=== PATIENT | female | born 1995 | race Caucasian/White ===

== ENCOUNTER 2016-09-07 17:49 | Inpatient (IN) | payer OTHER ==
[~2016-09-07] VITALS: Ht 171.4 cm; Wt 42.7 kg
[2016-09-07] MEDS ORDERED: ETOMIDATE 40 MG/20 ML VIAL ONE (17:53)
[2016-09-07 17:57] VITALS: O2SAT 100
--- NOTE | 2016-09-07 18:08 | PD ---
HPI Chief Complaint: Trauma (Alert) Time Seen by Provider: 18:07 Travel History International Travel<30 days: No Contact w/Intl Traveler<30days: No Traveled to known affect area: No History of Present Illness HPI Patient probably about 19 years old was brought in as a trauma alert. I was in the room prior to patient's arrival since they gave the radio report. Patient had hung herself with a nylon rope from a bar on the ceiling and was found by her roommate. Unknown time of hanging. When fire department arrived patient was asystole. She was started on CPR and one round of meds were given as per ACLS protocol. There was return of spontaneous circulation soon after that. Patient was brought in getting breaths by [facility]. She had a blood pressure and pulse in the ambulance before arriving to the ER she started having some spontaneous respirations. She continued to be a GCS 3 when she arrived. She was tachycardic. As per the paramedics there was a pill bottle with Wellbutrin and some powdered substance found in the same location where she was found. [facility] Past Medical History Narrative Medical Unknown Allergies-Medications (Allergen,Severity, Reaction): Coded Allergies: No Known Allergies (Unverified , 09/07/16) Comments Unknown Narrative Medication Unknown Review of Systems Except as stated in HPI: all other systems reviewed are Neg Physical Exam Narrative GENERAL: Unresponsive, breaths by BVM SKIN: Focused skin assessment warm/dry. Deep in then did ligature daniel that's brown in color on the anterior aspect of her mid neck HEAD: Atraumatic. Normocephalic. EYES: Pupils equal and round and nonreactive to light. No scleral icterus. Conjunctival injection ENT: No nasal bleeding or discharge. Mucous membranes pink and moist. NECK: Trachea midline. No JVD. CARDIOVASCULAR: Regular rate and rhythm. No murmur appreciated. RESPIRATORY: Occasional spontaneous respirations. GASTROINTESTINAL: Abdomen soft, non-tender, nondistended. Hepatic and splenic margins not palpable. MUSCULOSKELETAL: No obvious deformities. No clubbing. No cyanosis. No edema. NEUROLOGICAL: GCS of 3 PSYCHIATRIC: Unable to assess Data Data Last Documented VS Vital Signs Date Time Temp Pulse Resp B/P Pulse Ox O2 Delivery O2 Flow Rate FiO2 09/07/16 17:57 100 15.00 100 Orders Etomidate Inj (Amidate Inj) (09/07/16 17:53) I-Stat Profile (09/07/16 18:00) I-Stat Creatinine (09/07/16 18:00) Complete Blood Count With Diff (09/07/16 18:00) Prothrombin Time / Inr (Pt) (09/07/16 18:00) Act Partial Throm Time (Ptt) (09/07/16 18:00) Type And Screen (09/07/16 18:00) Chest, Single Ap (09/07/16 18:00) Ct Brain W/O Iv Contrast(Rout) (09/07/16 18:00) Ct Cerv Spine W/O Contrast (09/07/16 18:00) Iv Access Insert/Monitor (09/07/16 18:00) Ecg Monitoring (09/07/16 18:00) Oximetry (09/07/16 18:00) Oxygen Administration (09/07/16 18:00) Propofol 1000 Mg/100 Ml Inj (Diprivan 10 (09/07/16 18:14) Admit Order (Ed Use Only) (09/07/16 18:17) Labs Laboratory Tests Test 09/07/16 17:55 White Blood Count 8.8 TH/MM3 Red Blood Count 4.94 MIL/MM3 Hemoglobin 14.2 GM/DL Bedside Hemoglobin 15.0 G/DL Hematocrit 42.6 % Bedside Hematocrit 44.0 % Mean Corpuscular Volume 86.3 FL Mean Corpuscular Hemoglobin 28.8 PG Mean Corpuscular Hemoglobin 33.4 % Concent Red Cell Distribution Width 14.5 % Platelet Count 242 TH/MM3 Mean Platelet Volume 8.0 FL Neutrophils (%) (Auto) 57.6 % Lymphocytes (%) (Auto) 32.2 % Monocytes (%) (Auto) 9.1 % Eosinophils (%) (Auto) 0.5 % Basophils (%) (Auto) 0.6 % Neutrophils # (Auto) 5.1 TH/MM3 Lymphocytes # (Auto) 2.8 TH/MM3 Monocytes # (Auto) 0.8 TH/MM3 Eosinophils # (Auto) 0.0 TH/MM3 Basophils # (Auto) 0.1 TH/MM3 CBC Comment DIFF FINAL Differential Comment Prothrombin Time 11.9 SEC Prothromb Time International 1.1 RATIO Ratio Activated Partial 23.1 SEC Thromboplast Time Bedside Sodium 140 MMOL/L Bedside Potassium 4.4 MMOL/L Bedside Chloride 106 MMOL/L Bedside Blood Urea Nitrogen 11 MG/DL Bedside Creatinine 1.4 MG/DL Bedside Glucose 262 MG/DL Blood Type B POSITIVE Antibody Screen NEGATIVE MDM Medical Screen Exam Complete: Yes Emergency Medical Condition: Yes Medical Record Reviewed: Yes EKG Prior to Arrival: Yes Differential Diagnosis Brain , hypoxic encephalopathy, cervical spine fracture, intracranial bleed , cerebral edema Narrative Course 6:14 PM trauma surgeon was present in the room and assessed the patient alongside with me. I decided to intubate the patient as soon as she arrived. Once this was done successfully chest x-ray was taken and I looked at the x-ray myself. The ET tube appeared to be in good position. Please refer to my procedure note. I rolled her off the backboard and checked the spine. There was no step-offs or contusions. She was taken to the CT scanner. She remained with a pulse and blood pressure similar as per arrival. Patient will be admitted to the ICU. Critical Care Narrative Aggregate critical care time was 30 minutes. Time to perform other separately billable procedures was not included in the critical care time. My time did not include minutes spent treating any other patients simultaneously or on activities that did not directly contribute to the patient's treatment. The services I provided to this patient were to treat and/or prevent clinically significant deterioration that could result in: Trauma alert I provided critical care services requiring my management, as noted below: Chart data review, documentation time, medication orders and management, vital sign assessments/reviewing monitor data, ordering and reviewing lab tests, ordering and interpreting/reviewing x-rays and diagnostic studies, care of the patient and discussion of the patient with the admitting physicians. Procedures Procedure Narrative After the risks and benefits were discussed the following procedure was performed: INTUBATION: The patient was put in optimal position for the procedure. Rapid sequence intubation was initiated by me using 20 milligrams of etomidate IV and 100 milligrams of succinylcholine IV. The patient was intubated with a 7.5 cuffed endotracheal tube. Tube placement was confirmed by visualization of the tube and balloon passing through the cords, capnometry and subsequent chest x-ray. Breath sounds were equal and well aerated bilaterally postintubation. No breath sounds over stomach. Patient tolerated procedure well. Trauma Alert - Level One Trauma Alert Level One: Full trauma team activate, Patient evaluated, Trauma surgeon summoned Time Surgeon Summoned: 17:[address] Ricardo Diagnosis Diagnosis: Primary Impression: Hanging Qualified Code: T71.164A - Hanging, initial encounter Additional Impressions: Cardiac arrest Hypoxic ischemic encephalopathy Respiratory failure Qualified Code: J96.01 - Acute respiratory failure with hypoxia Admitting Physician Requests: Admit Saadia Sagastume MD Sep 07, 2016 18:08
[2016-09-07] MEDS ORDERED: PROPOFOL 1000 MG/100 ML INJ 100 ML ONE ×2 (18:14→19:20)
--- NOTE | 2016-09-07 18:17 | RADRPT ---
EXAM DATE/TIME: 09/07/2016 17:49 This report includes an Addendum and supersedes previous reports for this exam. [facility] COMPARISON: No previous studies available for comparison. INDICATIONS : Trauma alert. Neck pain. MEDICAL HISTORY : None. SURGICAL HISTORY : None. ENCOUNTER: Initial ACUITY: 1 day PAIN SCORE: 0/10 LOCATION: Bilateral chest FINDINGS: A single view of the chest demonstrates subtle densities in the upper lobes. No effusion or pneumotho rax. Endotracheal tube 3.5 cm above the serafin. The cardiomediastinal contours are unremarkable. Oss eous structures are intact. CONCLUSION: Subtle densities in the upper lobes. Otherwise unremarkable chest. Artem Madera MD on September 07, 2016 at 18:15 Board Certified Radiologist. This report was verified electronically. ADDENDUM: See above. Artem Madera MD on September 07, 2016 at 18:23 Board Certified Radiologist. This report was verified electronically.
--- NOTE | 2016-09-07 18:18 | RADRPT ---
EXAM DATE/TIME: 09/07/2016 18:06 [facility] COMPARISON: No previous studies available for comparison. INDICATIONS : Trauma alert- possible hanging. RADIATION DOSE: 35.93 CTDIvol (mGy) MEDICAL HISTORY : Non-responsive. SURGICAL HISTORY : Non-responsive. ENCOUNTER: Initial ACUITY: 1 day PAIN SCALE: Non-responsive LOCATION: Bilateral cranial TECHNIQUE: Multiple contiguous axial images were obtained of the head. Using automated exposure control and adj ustment of the mA and/or kV according to patient size, radiation dose was kept as low as reasonably a chievable to obtain optimal diagnostic quality images. DICOM format image data is available electro nically for review and comparison. FINDINGS: CEREBRUM: The ventricles are normal for age. No evidence of midline shift, mass lesion, hemorrhage or acute in farction. No extra-axial fluid collections are seen. POSTERIOR FOSSA: The cerebellum and brainstem are intact. The 4th ventricle is midline. The cerebellopontine angle i s unremarkable. EXTRACRANIAL: The visualized portion of the orbits is intact. SKULL: The calvaria is intact. No evidence of skull fracture. CONCLUSION: Normal examination. Artem Madera MD on September 07, 2016 at 18:16 Board Certified Radiologist. This report was verified electronically.
[2016-09-07 18:25] VITALS: O2SAT 100
[2016-09-07 18:25] LABS: AUTOMATED NEUTROPHIL # 5.1 TH/MM3 (1.8-7.7); BASOPHIL # 0.1 TH/MM3 (0-0.2); BASOPHIL % 0.6 % (0.0-2.0); EOSINOPHIL % 0.5 % (0.0-4.0); HEMATOCRIT 42.6 % (35.0-46.0); HEMO FLAGS DIFF FINAL; I-STAT POTASSIUM 4.4 MMOL/L (3.5-4.9); LYMPH % 32.2 % (9.0-44.0); LYMPHOCYTE # 2.8 TH/MM3 (1.0-4.8); MEAN CELL VOLUME 86.3 FL (80.0-100.0); MEAN CORPUSCULAR HEMOGLOBIN 28.8 PG (27.0-34.0); MEAN CORPUSCULAR HGB CONC 33.4 % (32.0-36.0); MONO % 9.1 % (0.0-8.0); NEUT % 57.6 % (16.0-70.0); PLATELET COUNT 242 TH/MM3 (150-450); RED BLOOD COUNT 4.94 MIL/MM3 (4.00-5.30); RED CELL DISTRIBUTION WIDTH 14.5 % (11.6-17.2); WHITE BLOOD COUNT 8.8 TH/MM3 (4.0-11.0)
--- NOTE | 2016-09-07 18:29 | RADRPT ---
EXAM DATE/TIME: 09/07/2016 18:06 [facility] COMPARISON: No previous studies available for comparison. INDICATIONS : Trauma alert- possible hanging. RADIATION DOSE: 21.22 CTDIvol (mGy) MEDICAL HISTORY : Non-responsive. SURGICAL HISTORY : Non-responsive. ENCOUNTER: Initial ACUITY: 1 day PAIN SCALE: Non-responsive LOCATION: Bilateral neck region. TECHNIQUE: Volumetric scanning of the cervical spine was performed. Multiplanar reconstructions in the sagittal, coronal and oblique axial planes were performed. Using automated exposure control and adjustment o f the mA and/or kV according to patient size, radiation dose was kept as low as reasonably achievable to obtain optimal diagnostic quality images. DICOM format image data is available electronically f or review and comparison. FINDINGS: VERTEBRAE: Normal vertebral body height. ALIGNMENT: No evidence of subluxation. C2-C3: The bony spinal canal is normal in size. No evidence of disc bulge or herniation. The neural forami na are bilaterally patent. C3-C4: The bony spinal canal is normal in size. No evidence of disc bulge or herniation. The neural forami na are bilaterally patent. C4-C5: The bony spinal canal is normal in size. No evidence of disc bulge or herniation. The neural forami na are bilaterally patent. C5-C6: The bony spinal canal is normal in size. No evidence of disc bulge or herniation. The neural forami na are bilaterally patent. C6-C7: The bony spinal canal is normal in size. No evidence of disc bulge or herniation. The neural forami na are bilaterally patent. C7-T1: The bony spinal canal is normal in size. No evidence of disc bulge or herniation. The neural forami na are bilaterally patent. CONCLUSION: 1. No fracture or subluxation. 2. Scattered groundglass nodules throughout the upper lobes, nonspecific but can be seen with hyperse nsitivity pneumonitis. Artem Madera MD on September 07, 2016 at 18:26 Board Certified Radiologist. This report was verified electronically.
[2016-09-07 18:35] LABS: APTT (PATIENT) 23.1 SEC (24.3-30.1); INTERNATIONAL NORMALIZED RATIO 1.1 RATIO; PROTHROMBIN TIME - PATIENT 11.9 SEC (9.8-11.6)
[2016-09-07] MEDS ORDERED: SUCCINYLCHOLINE CHLORIDE 200 MG/10 ML VIAL ONE (18:38)
[2016-09-07] MEDS ORDERED: ENALAPRILAT 1.25 MG/ML VIAL IV PRN (18:45)
[2016-09-07] MEDS ORDERED: SODIUM CHLORIDE 0.9% FLUSH 10 ML FLUSH IV FLUSH PRN ×2 (18:45→22:00)
[2016-09-07] MEDS ORDERED: CHLORHEXIDINE GLUCONATE 2 % 1 PACK (2 CLOTHS) TOP PRN (18:45)
[2016-09-07] MEDS ORDERED: ONDANSETRON HCL 4 MG/2 ML VIAL IV PRN (18:45)
[2016-09-07] MEDS ORDERED: MAGNESIUM HYDROXIDE SUSP 30 ML CUP PO PRN (18:45)
[2016-09-07] MEDS ORDERED: MISCELLANEOUS NURSING INFORMATION XX SCH (18:45)
--- NOTE | 2016-09-07 19:27 | MH ---
cc: SON[facility] STOCK DATE OF ADMISSION 09/07/2016 HISTORY OF THE PRESENT ILLNESS This is an 44-rai-latl-old female who was brought in as a trauma alert after hanging from a pull up bar. By reports the patient was asystole at the scene. CPR was started. The patient was given a round of epinephrine and regained a blood pressure. She was brought on a backboard, immobilized with a C-collar in place. She is being bagged. The patient was unresponsive with a GCS of 3. As a result she was intubated by the emergency room physician and all reviews of systems and history is unobtainable. PHYSICAL EXAMINATION HEENT: The patient's examination reveals pupils that are equal, nonreactive, 3 mm. NECK: In C-collar with a circumferential imprinting around it. No crepitus. No tracheal deviation. No JVD. LUNGS: Respirations clear. CARDIOVASCULAR: Regular. GASTROINTESTINAL: Soft, flat, nondistended. MUSCULOSKELETAL: No deformities. NEUROLOGIC: GCS of 3T. BACK: No step-offs. LABORATORY DATA The patient's hemoglobin is 15, hematocrit 44. IMAGING Radiologic images CT of the head negative. CT of the C-spine no fracture. Chest x-ray no acute disease. ASSESSMENT This is a patient who was found hanging with likely anoxic brain injury. The patient is being admitted to [facility]. The die designer apprentice has been consulted and will monitor neurological status. MD ALIZA Velazquez/LINO /7:02 PM /7:16 PM
[2016-09-07] MEDS ORDERED: SODIUM CHLOR 0.9% 1000 ML INJ 1,000 ML IV SCH (19:30)
[2016-09-07 19:35] VITALS: O2SAT 96
[2016-09-07 20:00] VITALS: BP 124/76; PULSE 98; RESP 28; TEMP 100.7; O2SAT 100
[2016-09-07 20:00] LABS: BLOOD GAS BASE EXCESS -9.4 mmol/L (-2-2); BLOOD GAS CARBOXYHEMOGLOBIN 0.8 % (0-4); BLOOD GAS HCO3 16 mmol/L (22-26); BLOOD GAS METHEMOGLOBIN 0.8 % (0-2); BLOOD GAS O2 HGB SATURATION 98 % (90-100); BLOOD GAS OXYGEN CONTENT 24.5 Vol % (12.0-20.0); BLOOD GAS PCO2 35 mmHg (38-42); BLOOD GAS PO2 384 mmHg (61-120); BLOOD GAS TOTAL HGB 17.1 G/DL (12.0-16.0); OXYGEN DEVICE VENTILATOR; TEMP CORR TO 98.6
[2016-09-07 20:01] LABS: CRITICAL VALUE YES; DRAW SITE RT RADIAL; FIO2 100 %; NUMBER OF ARTERIAL PUNCTURES 1; STAT NO; ULNAR PULSE PRESENT; VENT SETTINGS AC14/450/5PEEP
[2016-09-07] MEDS: DOCUSATE SODIUM 100 MG CAP PO SCH (21:00)
[2016-09-07 21:12] VITALS: O2SAT 100
[2016-09-07] MEDS ORDERED: NOREPINEPHRINE 4 MG/250 ML NS IV SCH ×2 (21:30)
[2016-09-07] MEDS ORDERED: MIDAZOLAM 100 MG/NS 100 ML DRIP Premix IV SCH (21:30)
[2016-09-07] MEDS ORDERED: CISATRACURIUM 100 MG/NS 250 ML IV PRN ×2 (21:30)
[2016-09-07 21:49] LABS: BLOOD, URINE LARGE (NEG); GLUCOSE,URINE 150 mg/dL (NEG); KETONE, URINE NEG (NEG); MUCUS URINE FEW /lpf (OCC); NITRITE,URINE NEG (NEG); SQUAMOUS EPITHELIAL CELL URINE 4 /hpf (0-5); URINE COLOR RED (YELLW/STRAW)
[2016-09-07 22:00] VITALS: PULSE 101
[2016-09-07] MEDS ORDERED: Mix all IV Meds in NS IV SCH (22:00)
[2016-09-07] MEDS ORDERED: MIDAZOLAM 100 MG/100 ML INJ 100 ML IV SCH (22:00)
[2016-09-07] MEDS: NS 1000 ML IV SCH (22:00)
[2016-09-07 22:06] LABS: MAGNESIUM 2.3 MG/DL (1.5-2.5)
[2016-09-07 22:07] LABS: INDIRECT BILIRUBIN 0.5 MG/DL (0.0-0.8); TOTAL BILIRUBIN ADULT 0.7 MG/DL (0.2-1.0)
--- NOTE | 2016-09-07 22:49 | PD.CONS ---
[facility] Service Critical Care Medicine Consult Requested By Primary Care Physician No Primary Care Physician History of Present Illness 19 years old was brought in as a trauma alert. He has had to hanged herself and was found by her roommate. Unknown time of hanging. When fire department arrived patient was in asystole. CPR was started and one round of meds were given as per ACLS protocol. There was return of spontaneous circulation soon after that. Patient was brought in getting breaths by BVM. She had a blood pressure and half way to arriving to the ER she started having some spontaneous respirations. She continued to be a GCS 3 when she arrived. She is admitted to critical care unit and therapeutic hypothermia protocol is initiated. Review of Systems ROS Unobtainable patient is comatose Past Family Social History Allergies: Coded Allergies: UNOBTAINABLE (Unverified , 09/07/16) Past Medical History Unobtainable Past Surgical History Unobtainable Reported Medications Unobtainable Active Ordered Medications Current Medications Medications (Trade) Dose Ordered Sig/Jenaro Route PRN Reason Start Time Stop Time Status Last Admin Dose Admin Sodium Chloride (NS 1000 ml Inj) 1,000 ml @ 100 mls/hr Q10H IV 09/07/16 19:30 09/07/16 19:30 Sodium Chloride (NS Flush) 2 ml UNSCH PRN IV FLUSH FLUSH AFTER USING IV ACCESS 09/07/16 18:45 Enalaprilat (Vasotec Inj) 1.25 mg Q8H PRN IV SBP>180, DBP>95 09/07/16 18:45 Ondansetron HCl (Zofran Inj) 4 mg Q6H PRN IV NAUSEA OR VOMITING 09/07/16 18:45 Pantoprazole Sodium (Protonix Inj) 40 mg Q24H IVP 09/07/16 20:00 Docusate Sodium (Colace) 100 mg BID PO 09/07/16 21:00 Magnesium Hydroxide (Milk Of Magnesia Liq) 30 ml Q6H PRN PO CONSTIPATION 09/07/16 18:45 Miscellaneous Information 1 Q361D XX 09/07/16 18:45 Chlorhexidine Gluconate (Chlorhexidine 2% Cloth) 3 pack Taper DAILY@04 TOP 09/08/16 04:00 09/04/17 03:59 Chlorhexidine Gluconate 3 pack 3 pack UNSCH PRN TOP HYGIENIC CARE 09/07/16 18:45 Midazolam HCl (Versed 100 Mg/ ml Inj) 100 ml @ 0 mls/hr TITRATE IV 09/07/16 21:30 09/07/16 21:33 Lorazepam 1 mg 1 mg Q1H PRN IV SEIZURES 09/07/16 22:00 Miscellaneous Information ml @ 0 mls/hr UNSCH IV 09/07/16 22:00 Sodium Chloride (NS Flush) 2 ml UNSCH PRN IV FLUSH FLUSH AFTER USING IV ACCESS 09/07/16 22:00 Sodium Chloride 2 ml 2 ml UNSCH PRN IV FLUSH IV FLUSH 09/07/16 22:00 Sodium Chloride (NS 1000 ml Inj) 1,000 ml @ 2,000 mls/hr Q30M IV 09/07/16 22:00 09/07/16 22:59 Artificial Tears 1 applic 1 applic Q4H PRN EACH EYE SEE LABEL COMMENTS 09/07/16 22:00 Cisatracurium Besylate 100 mg/ Sodium Chloride 250 ml @ 0 mls/hr TITRATE PRN IV ONLY IF SHIVERING 09/07/16 21:30 Norepinephrine Bitartrate/Sodium Chloride (Levophed Inj/NS 250 ml Inj) 250 ml @ 0 mls/hr TITRATE IV 09/07/16 21:30 Family History Unobtainable Social History Unobtainable Physical Exam Vital Signs Vital Signs Date Time Temp Pulse Resp B/P Pulse Ox O2 Delivery O2 Flow Rate FiO2 09/07/16 21:12 100 80 09/07/16 19:35 96 100 09/07/16 18:25 100 100 09/07/16 17:57 100 15.00 100 Physical Exam GENERAL: Well-nourished, well-developed patient. In deep coma SKIN: Warm and dry. HEAD: Normocephalic. Pupils are 4 mm bilaterally fixed and dilated EYES: No scleral icterus. No injection or drainage. NECK: Supple, trachea midline. No JVD or lymphadenopathy. CARDIOVASCULAR: Regular rate and rhythm without murmurs, gallops, or rubs. RESPIRATORY: Breath sounds equal bilaterally. No accessory muscle use. GASTROINTESTINAL: Abdomen soft, non-tender, nondistended. MUSCULOSKELETAL: No cyanosis, or edema. BACK: Nontender without obvious deformity. No CVA tenderness. EXTREMITIES: No movement Laboratory Laboratory Tests Test 09/07/16 09/07/16 09/07/16 09/07/16 17:55 19:30 19:34 21:24 White Blood Count 8.8 Red Blood Count 4.94 Hemoglobin 14.2 Bedside Hemoglobin 15.0 Hematocrit 42.6 Bedside Hematocrit 44.0 Mean Corpuscular Volume 86.3 Mean Corpuscular Hemoglobin 28.8 Mean Corpuscular Hemoglobin 33.4 Concent Red Cell Distribution Width 14.5 Platelet Count 242 Mean Platelet Volume 8.0 Neutrophils (%) (Auto) 57.6 Lymphocytes (%) (Auto) 32.2 Monocytes (%) (Auto) 9.1 Eosinophils (%) (Auto) 0.5 Basophils (%) (Auto) 0.6 Neutrophils # (Auto) 5.1 Lymphocytes # (Auto) 2.8 Monocytes # (Auto) 0.8 Eosinophils # (Auto) 0.0 Basophils # (Auto) 0.1 CBC Comment DIFF FINAL Differential Comment Prothrombin Time 11.9 Prothromb Time International 1.1 Ratio Activated Partial 23.1 Thromboplast Time Bedside Sodium 140 Bedside Potassium 4.4 Bedside Chloride 106 Bedside Blood Urea Nitrogen 11 Bedside Creatinine 1.4 Bedside Glucose 262 Blood Type B POSITIVE Antibody Screen NEGATIVE Nasal Screen MRSA (PCR) MRSA NOT DETECTED Blood Gas Puncture Site RT RADIAL Blood Gas Patient Temperature 98.6 Blood Gas HCO3 16 Blood Gas Base Excess -9.4 Blood Gas Oxygen Saturation 98 Arterial Blood pH 7.29 Arterial Blood Partial 35 Pressure CO2 Arterial Blood Partial 384 Pressure O2 Arterial Blood Oxygen Content 24.5 Arterial Blood 0.8 Carboxyhemoglobin Arterial Blood Methemoglobin 0.8 Blood Gas Hemoglobin 17.1 Oxygen Delivery Device VENTILATOR Blood Gas Ventilator Setting AC14/450/5PEEP Blood Gas Inspired Oxygen 100 Urine Color RED Urine Turbidity CLOUDY Urine pH 6.0 Urine Specific [place] 1.024 Urine Protein 300 Urine Glucose (UA) 150 Urine Ketones NEG Urine Occult Blood LARGE Urine Nitrite NEG Urine Bilirubin NEG Urine Urobilinogen LESS THAN 2.0 Urine Leukocyte Esterase NEG Urine RBC Urine WBC 26 Urine Squamous Epithelial 4 Cells Urine Amorphous Sediment RARE Urine Mucus FEW Microscopic Urinalysis Comment Lactic Acid Level 3.6 Phosphorus Level 4.4 Magnesium Level 2.3 Total Bilirubin 0.7 Direct Bilirubin 0.2 Indirect Bilirubin 0.5 Aspartate Amino Transf 67 (AST/SGOT) Alanine Aminotransferase 33 (ALT/SGPT) Alkaline Phosphatase 53 Total Protein 7.8 Albumin 4.0 Urine Opiates Screen NEG Urine Barbiturates Screen NEG Urine Amphetamines Screen NEG Urine Benzodiazepines Screen NEG Urine Cocaine Screen NEG Urine Cannabinoids Screen NEG Result Diagram: 09/07/16 1755 Imaging Last [address] 09/07/16 1800 Signed Impressions: Service Date/Time: Wednesday, September 07, 2016 18:06 - CONCLUSION: Normal examination. Artem Madera MD Chest X-Ray 09/07/16 1800 Signed Impressions: Service Date/Time: Wednesday, September 07, 2016 17:49 - CONCLUSION: Subtle densities in the upper lobes. Otherwise unremarkable chest. Artem Madera MD ADDENDUM: See above. Artem Madera MD Cervical Spine CT 09/07/16 1800 Signed Impressions: Service Date/Time: Wednesday, September 07, 2016 18:06 - CONCLUSION: 1. No fracture or subluxation. 2. Scattered groundglass nodules throughout the upper lobes, nonspecific but can be seen with hypersensitivity pneumonitis. Artem Madera MD Assessment and Plan Assessment and Plan Status postcardiac arrest - Due to hanging suicidal attempt - Possible anoxic brain injury - Therapeutic hypothermia protocol due to low GCS Respiratory failure - Intubated for an airway protection - No weaning until neurologically improved Altered mental status - Most likely anoxic brain injury - Hypothermia protocol - Neurology evaluation if no improvement with the next 24 hours when rewarmed DVT GI prophylaxis - Subcutaneous heparin and Pepcid Critical Care: The total critical care time was 35 minutes. Time to perform other separately billable procedures was not included in the critical care time. Prosper England MD Sep 07, 2016 22:49
--- NOTE | 2016-09-07 22:52 | PD.PROCEDR ---
Procedure Note Procedure Centerline placement A time-out was completed verifying correct patient, procedure, site, positioning , and special equipment if applicable. The patient was placed in a dependent position appropriate for central line placement based on the vein to be cannulated. The patients right groin was prepped and draped in sterile fashion. 1% Lidocaine was used to anesthetize the surrounding skin area. A triple lumen 9-[place] Cordis catheter was introduced into the the common femoral vein using the Seldinger technique and under ultrasound guidance. The catheter was threaded smoothly over the guide wire and appropriate blood return was obtained. Each lumen of the catheter was evacuated of air and flushed with sterile saline. The catheter was then sutured in place to the skin and a sterile dressing applied. Perfusion to the extremity distal to the point of catheter insertion was checked and found to be adequate. Estimated Blood Loss: 1ml The patient tolerated the procedure well and there were no complications. Prosper England MD Sep 07, 2016 22:52
[2016-09-07] MEDS ORDERED: SODIUM CHLOR 0.9% 1000 ML INJ 2,000 ML IV SCH (23:00)
[2016-09-07 23:27] LABS: BICARBONATE 20.1 MEQ/L (21.0-32.0); MAGNESIUM 2.3 MG/DL (1.5-2.5); POTASSIUM 3.1 MEQ/L (3.5-5.1)
[2016-09-08] VITALS (21 sets, daily range): BP systolic 99–127; BP diastolic 54–80; PULSE 74–119; RESP 15–30; TEMP 91.2–91.5; O2SAT 88–100
[2016-09-08] MEDS: NS 1000 ML IV SCH (00:23)
[2016-09-08] MEDS ORDERED: POTASSIUM PHOSPHATE MONOBASIC 500 MG TAB PO PRN (00:30)
[2016-09-08] MEDS ORDERED: POTASSIUM CHLORIDE 25 MEQ EFFERVESCENT TAB PO PRN (00:30)
[2016-09-08] MEDS ORDERED: POTASSIUM PHOSPHATE INJ 30 MMOL in SODIUM CHLOR 0.9% 250 ML INJ 250 ML IV PRN (00:30)
[2016-09-08] MEDS ORDERED: POTASSIUM PHOSPHATE MONOBASIC 500 MG TAB PO/TUBE PRN (00:30)
[2016-09-08] MEDS ORDERED: MAGNESIUM SULFATE INJ 4 GM in SODIUM CHLORIDE 0.9% INJ 92 ML IV PRN (00:30)
[2016-09-08] MEDS ORDERED: MAGNESIUM OXIDE 400 MG TAB PO PRN (00:30)
[2016-09-08] MEDS ORDERED: SODIUM PHOSPHATE INJ 30 MMOL in SODIUM CHLOR 0.9% 250 ML INJ 240 ML IV PRN (00:30)
[2016-09-08] MEDS: POTASSIUM CHLOR 40 MEQ PREMIX 100 ML IV PRN ×2 (00:59→03:05)
[2016-09-08] MEDS ORDERED: PROPOFOL 1000 MG/100 ML INJ 100 ML ONE (01:36)
[2016-09-08] MEDS: PANTOPRAZOLE SODIUM 40 MG VIAL IVP SCH ×2 (01:42→20:18)
[2016-09-08] MEDS: CHLORHEXIDINE GLUCONATE 2 % 1 PACK (2 CLOTHS) TOP SCH (02:20)
[2016-09-08] MEDS ORDERED: VECURONIUM BROMIDE 10 MG VIAL ONE (02:33)
[2016-09-08] MEDS ORDERED: VECURONIUM BROMIDE 10 MG VIAL IV SCH (02:35)
[2016-09-08] MEDS ORDERED: SODIUM CHLOR 0.9% 1000 ML INJ 1,000 ML IV SCH (02:45)
[2016-09-08] MEDS ORDERED: SODIUM BICARBONATE 8.4% INJ 150 MEQ in DEXTROSE 5% IN WATE 1000ML INJ 1,000 ML IV SCH ×2 (04:00)
[2016-09-08] MEDS ORDERED: fentaNYL DRIP 250 ML IV SCH (05:00)
[2016-09-08 05:17] LABS: AUTOMATED NEUTROPHIL # 1.3 TH/MM3 (1.8-7.7); BASOPHIL % 0.2 % (0.0-2.0); EOSINOPHIL % 0.9 % (0.0-4.0); HEMATOCRIT 43.1 % (35.0-46.0); HEMO FLAGS DIFF FINAL; LYMPHOCYTE # 0.7 TH/MM3 (1.0-4.8); MEAN CELL VOLUME 85.9 FL (80.0-100.0); MEAN CORPUSCULAR HEMOGLOBIN 28.3 PG (27.0-34.0); MEAN CORPUSCULAR HGB CONC 32.9 % (32.0-36.0); MONO % 5.5 % (0.0-8.0); NEUT % 60.4 % (16.0-70.0); PLATELET COUNT 175 TH/MM3 (150-450); RED BLOOD COUNT 5.02 MIL/MM3 (4.00-5.30); RED CELL DISTRIBUTION WIDTH 14.6 % (11.6-17.2); WHITE BLOOD COUNT 2.2 TH/MM3 (4.0-11.0)
[2016-09-08 05:22] LABS: BICARBONATE 20.9 MEQ/L (21.0-32.0); CALCIUM-PROTEIN CORRECTED 8.2 MG/DL (8.5-10.1); MAGNESIUM 1.8 MG/DL (1.5-2.5); POTASSIUM 4.8 MEQ/L (3.5-5.1); TOTAL BILIRUBIN ADULT 0.3 MG/DL (0.2-1.0)
[2016-09-08 05:22] LABS: BLOOD GAS BASE EXCESS -9.4 mmol/L (-2-2); BLOOD GAS CARBOXYHEMOGLOBIN 0.3 % (0-4); BLOOD GAS HCO3 19 mmol/L (22-26); BLOOD GAS METHEMOGLOBIN 0.7 % (0-2); BLOOD GAS O2 HGB SATURATION 87 % (90-100); BLOOD GAS OXYGEN CONTENT 17.7 Vol % (12.0-20.0); BLOOD GAS PCO2 60 mmHg (38-42); BLOOD GAS PO2 66 mmHg (61-120); BLOOD GAS TOTAL HGB 14.4 G/DL (12.0-16.0); CRITICAL VALUE YES; OXYGEN DEVICE VENTILATOR; TEMP CORR TO 98.6; VENT SETTINGS AC14/450/5PEEP
[2016-09-08 05:23] LABS: DRAW SITE RT RADIAL; FIO2 65 %; NUMBER OF ARTERIAL PUNCTURES 1; STAT NO; ULNAR PULSE PRESENT
--- NOTE | 2016-09-08 06:13 | RADRPT ---
EXAM DATE/TIME: 09/08/2016 05:29 [facility] COMPARISON: CHEST SINGLE AP, September 07, 2016, 17:49. INDICATIONS : Short of breath. MEDICAL HISTORY : None. SURGICAL HISTORY : None. ENCOUNTER: Subsequent ACUITY: 2 days PAIN SCORE: 0/10 LOCATION: Bilateral chest FINDINGS: Portable AP view the chest demonstrates a normal-sized cardiac silhouette. ETT and nasogastric tube a re present. There is airspace consolidation in the right lower lung zone and left upper lung zone. No pneumothorax or pleural effusion is identified. CONCLUSION: There is new airspace consolidation in the left upper lobe and right lower lung zone. Miller Lee MD on September 08, 2016 at 6:12 Board Certified Radiologist. This report was verified electronically.
[2016-09-08] MEDS ORDERED: PHENYLEPHRINE HCL 10 MG/ML VIAL ONE ×2 (07:00→07:06)
[2016-09-08] MEDS ORDERED: SODIUM CHLOR 0.9% 1000 ML INJ 1,000 ML IV ONE ×4 (07:30→18:00)
[2016-09-08] MEDS ORDERED: PHENYLEPHRINE INJ 160 MG in DEXTROSE 5% IN WATE 500 ML INJ 484 ML IV SCH ×2 (07:30)
[2016-09-08] MEDS ORDERED: TERBUTALINE INJ 1 MG/ML AMP SQ PRN ×2 (07:30→13:00)
[2016-09-08 07:39] LABS: BLOOD GAS BASE EXCESS -7.2 mmol/L (-2-2); BLOOD GAS CARBOXYHEMOGLOBIN 0.3 % (0-4); BLOOD GAS HCO3 20 mmol/L (22-26); BLOOD GAS METHEMOGLOBIN 0.7 % (0-2); BLOOD GAS O2 HGB SATURATION 99 % (90-100); BLOOD GAS OXYGEN CONTENT 19.6 Vol % (12.0-20.0); BLOOD GAS PCO2 55 mmHg (38-42); BLOOD GAS PO2 387 mmHg (61-120); BLOOD GAS TOTAL HGB 13.4 G/DL (12.0-16.0); CRITICAL VALUE YES; DRAW SITE ART LINE; FIO2 100 %; NUMBER OF ARTERIAL PUNCTURES 0; OXYGEN DEVICE VENTILATOR; STAT NO; TEMP CORR TO 98.6; ULNAR PULSE PRESENT; VENT SETTINGS PC/AC
[2016-09-08 07:47] LABS: BLOOD GAS VENOUS BASE EXCESS -6.2 mmol/L (-2-2); BLOOD GAS VENOUS HCO3 23 mmol/L (22-26); BLOOD GAS VENOUS O2 HGB SAT 62 % (70-76); BLOOD GAS VENOUS PCO2 79 mmHg (44-48); BLOOD GAS VENOUS PO2 38 mmHg (35-40); BLOOD GAS VENOUS pH 7.09 (7.360-7.400); CRITICAL VALUE YES; OXYGEN DEVICE VENTILATOR; TEMP CORR TO 98.6
[2016-09-08 07:48] LABS: DRAW SITE CENTRAL LINE; FIO2 100 %; STAT NO; VENT SETTINGS PC/AC
[2016-09-08] MEDS ORDERED: ALBUMIN HUMAN 25% 25 GM/100 ML BAGP IV ONE (08:00)
[2016-09-08] MEDS: PIPERACIL-TAZO 4.5 GM PREMIX 100 ML IV SCH ×3 (08:00→20:18)
--- NOTE | 2016-09-08 08:13 | HHI.CCPN ---
Subjective Remarks/Hospital Course 19 years old was brought in as a trauma alert. He has had to hanged herself and was found by her roommate. Unknown time of hanging. When fire department arrived patient was in asystole. CPR was started and one round of meds were given as per ACLS protocol. There was return of spontaneous circulation soon after that. Patient was brought in getting breaths by BV. She had a blood pressure and half way to arriving to the ER she started having some spontaneous respirations. She continued to be a GCS 3 when she arrived. She is admitted to critical care unit and therapeutic hypothermia protocol is initiated. SUBJ 09/08/16: Patient achieving target temperature but developing severe shock. Levothroid had been increased to 30 mcg/m Mehdi-Synephrine added. Additional fluid boluses ordered currently on bicarbonate infusion additional one amp of bicarbonate given. Chest x-ray shows severe aspiration pneumonitis predominantly right lower lobe infiltrates. Zosyn 4.5 GM IV q8 started, give single dose of vanc Objective Vital Signs Date Time Temp Pulse Resp B/P Pulse Ox O2 Delivery O2 Flow Rate FiO2 09/08/16 06:20 100 100 09/08/16 04:00 91.4 109 15 116/67 09/07/16 17:57 15.00 Intake and Output 09/07/16 09/07/16 09/08/16 08:00 16:00 00:00 Intake Total 1405 ml Output Total 70 ml Balance 1335 ml Result Diagram: 09/08/16 0445 09/08/16 0445 Other Results Laboratory Tests Test 09/07/16 09/08/16 19:34 05:04 Blood Gas Puncture Site RT RADIAL RT RADIAL Blood Gas Patient Temperature 98.6 98.6 Blood Gas HCO3 16 mmol/L 19 mmol/L (22-26) (22-26) Blood Gas Base Excess -9.4 mmol/L -9.4 mmol/L (-2-2) (-2-2) Blood Gas Oxygen Saturation 98 % (90-100) 87 % (90-100) Arterial Blood pH 7.29 7.12 (7.380-7.420) (7.380-7.420) Arterial Blood Partial 35 mmHg (38-42) 60 mmHg (38-42) Pressure CO2 Arterial Blood Partial 384 mmHg 66 mmHg Pressure O2 (61-120) (61-120) Arterial Blood Oxygen Content 24.5 Vol % 17.7 Vol % (12.0-20.0) (12.0-20.0) Arterial Blood 0.8 % (0-4) 0.3 % (0-4) Carboxyhemoglobin Arterial Blood Methemoglobin 0.8 % (0-2) 0.7 % (0-2) Blood Gas Hemoglobin 17.1 G/DL 14.4 G/DL (12.0-16.0) (12.0-16.0) Oxygen Delivery Device VENTILATOR VENTILATOR Blood Gas Ventilator Setting AC14/450/5PEEP AC14/450/5PEEP Blood Gas Inspired Oxygen 100 % 65 % Imaging Last [address] 09/07/16 1800 Signed Impressions: Service Date/Time: Wednesday, September 07, 2016 18:06 - CONCLUSION: Normal examination. Artem Madera MD Chest X-Ray 09/07/16 1800 Signed Impressions: Service Date/Time: Wednesday, September 07, 2016 17:49 - CONCLUSION: Subtle densities in the upper lobes. Otherwise unremarkable chest. Artem Madera MD ADDENDUM: See above. Artem Madera MD Cervical Spine CT 09/07/16 1800 Signed Impressions: Service Date/Time: Wednesday, September 07, 2016 18:06 - CONCLUSION: 1. No fracture or subluxation. 2. Scattered groundglass nodules throughout the upper lobes, nonspecific but can be seen with hypersensitivity pneumonitis. Artem Madera MD Objective Remarks GENERAL: Well-nourished, well-developed patient. Comatose now on heavy sedation for cooling SKIN: Warm and dry. HEAD: Normocephalic. Pupils are 2 mm bilaterally fixed EYES: No scleral icterus. No injection or drainage. NECK: Supple, trachea midline. No JVD or lymphadenopathy. CARDIOVASCULAR: Tachycardic rhythm. No murmurs RESPIRATORY: Breath sounds equal bilaterally. Basilar rhonchi and crackles GASTROINTESTINAL: Abdomen soft, non-tender, nondistended. MUSCULOSKELETAL: No cyanosis, or edema. BACK: Nontender without obvious deformity. No CVA tenderness. EXTREMITIES: No movement NEURO: Intubated sedated. Pupils are 2 mm nonreactive. No corneal reflex. No withdrawal to deep pain. GCS 3T A/P Assessment and Plan NEURO: Severe anoxic brain injury Attempted suicide by hanging - Initiated on induced hypothermia for neuro protection, currently at target temperature - From initial clinical exam prognosis appears poor - EEG, MRI after completion of induced hypothermia - Toxicology negative CV: Severe shock (neurogenic cardiogenic and septic Status postcardiac arrest - Continue aggressive fluid resuscitation - Levothroid on maximum dose, start Mehdi-Synephrine - Flow track monitoring - Check central venous gas, lactic acid, check bedside echo Resp: Acute hypoxemic respiratory failure Aspiration pneumonia Acute lung injury/ARDS - Intubated for an airway protection, now with severe hypoxemic respiratory failure - Combined metabolic and respiratory acidosis - PCV ventilation with Insp pr 28, PEEP 7 RR 24, check repeat ABG - No weaning until neurologically improved GI: - Nothing by mouth, Pepcid Renal: - IV fluid as above, Benjamin catheter, monitor BUN/creatinine ID: Septic shock Aspiration pneumonia - Check blood urine and sputum cultures - Zosyn 4.5 g IV every 6 hours, vancomycin 1 g IV 1 Endo: - Electrolyte replacement per protocol - Sliding-scale insulin HEME: Leukopenia - Leukopenia most likely from developing sepsis - Monitor CBC CMP coags DVT GI prophylaxis - Subcutaneous heparin and Pepcid Lines: - Right femoral cooling catheter and right brachial arterial line placed by Dr. England Critical Care: The total critical care time was 85 minutes discontinuously. Time to perform other separately billable procedures was not included in the critical care time. Lyndon Bhatt MD Sep 08, 2016 08:13
[2016-09-08] MEDS ORDERED: VANCOMYCIN INJ 1,000 MG in SODIUM CHLOR 0.9% 250 ML INJ 250 ML IV ONE (08:30)
[2016-09-08 08:49] LABS: BLOOD GAS BASE EXCESS -9.1 mmol/L (-2-2); BLOOD GAS CARBOXYHEMOGLOBIN 0.6 % (0-4); BLOOD GAS HCO3 18 mmol/L (22-26); BLOOD GAS METHEMOGLOBIN 0.7 % (0-2); BLOOD GAS O2 HGB SATURATION 92 % (90-100); BLOOD GAS OXYGEN CONTENT 16.3 Vol % (12.0-20.0); BLOOD GAS PCO2 49 mmHg (38-42); BLOOD GAS PO2 71 mmHg (61-120); BLOOD GAS TOTAL HGB 12.6 G/DL (12.0-16.0); CRITICAL VALUE YES; OXYGEN DEVICE VENTILATOR; TEMP CORR TO 98.6
[2016-09-08] MEDS ORDERED: SODIUM BICARBONATE 8.4% INJ 50 ML ONE (08:49)
[2016-09-08 08:50] LABS: DRAW SITE ART LINE; FIO2 75 %; STAT NO
[2016-09-08] MEDS: DOCUSATE SODIUM 100 MG CAP PO SCH ×2 (09:00→20:14)
[2016-09-08 09:58] LABS: BLOOD GAS BASE EXCESS -5.2 mmol/L (-2-2); BLOOD GAS CARBOXYHEMOGLOBIN 0.7 % (0-4); BLOOD GAS HCO3 20 mmol/L (22-26); BLOOD GAS METHEMOGLOBIN 0.8 % (0-2); BLOOD GAS O2 HGB SATURATION 95 % (90-100); BLOOD GAS OXYGEN CONTENT 16.4 Vol % (12.0-20.0); BLOOD GAS PCO2 45 mmHg (38-42); BLOOD GAS PO2 81 mmHg (61-120); BLOOD GAS TOTAL HGB 12.3 G/DL (12.0-16.0); CRITICAL VALUE YES; OXYGEN DEVICE VENTILATOR; TEMP CORR TO 98.6
[2016-09-08 09:59] LABS: DRAW SITE ART LINE; FIO2 80 %; NUMBER OF ARTERIAL PUNCTURES 0; STAT NO; ULNAR PULSE PRESENT; VENT SETTINGS AC/PC
[2016-09-08 10:16] LABS: AUTOMATED NEUTROPHIL # 1.4 TH/MM3 (1.8-7.7); BASOPHIL % 0.3 % (0.0-2.0); EOSINOPHIL % 0.4 % (0.0-4.0); HEMATOCRIT 37.7 % (35.0-46.0); HEMO FLAGS DIFF FINAL; LYMPH % 34.3 % (9.0-44.0); LYMPHOCYTE # 0.8 TH/MM3 (1.0-4.8); MEAN CELL VOLUME 84.5 FL (80.0-100.0); MEAN CORPUSCULAR HEMOGLOBIN 28.3 PG (27.0-34.0); MEAN CORPUSCULAR HGB CONC 33.5 % (32.0-36.0); MONO % 2.5 % (0.0-8.0); NEUT % 62.5 % (16.0-70.0); PLATELET COUNT 125 TH/MM3 (150-450); RED BLOOD COUNT 4.46 MIL/MM3 (4.00-5.30); RED CELL DISTRIBUTION WIDTH 14.3 % (11.6-17.2); WHITE BLOOD COUNT 2.2 TH/MM3 (4.0-11.0)
[2016-09-08] MEDS ORDERED: SODIUM BICARBONATE 8.4% SOLN 50 MEQ/50 ML VIAL IV ONE (11:00)
[2016-09-08 11:29] LABS: POTASSIUM 3.1 MEQ/L (3.5-5.1)
[2016-09-08 11:30] LABS: BICARBONATE 20.8 MEQ/L (21.0-32.0)
[2016-09-08 11:44] LABS: TOTAL BILIRUBIN ADULT 0.5 MG/DL (0.2-1.0)
[2016-09-08] MEDS: POTASSIUM CHLOR 20 MEQ PREMIX 100 ML IV PRN ×4 (11:47→18:20)
[2016-09-08 12:08] LABS: BLOOD GAS BASE EXCESS -6.6 mmol/L (-2-2); BLOOD GAS CARBOXYHEMOGLOBIN 0.6 % (0-4); BLOOD GAS HCO3 19 mmol/L (22-26); BLOOD GAS METHEMOGLOBIN 0.6 % (0-2); BLOOD GAS O2 HGB SATURATION 93 % (90-100); BLOOD GAS OXYGEN CONTENT 17.9 Vol % (12.0-20.0); BLOOD GAS PCO2 42 mmHg (38-42); BLOOD GAS PO2 68 mmHg (61-120); BLOOD GAS TOTAL HGB 13.7 G/DL (12.0-16.0); CRITICAL VALUE YES; OXYGEN DEVICE VENTILATOR; TEMP CORR TO 98.6
[2016-09-08 12:09] LABS: FIO2 60 %
[2016-09-08 12:10] LABS: DRAW SITE ART LINE; STAT NO
[2016-09-08 12:17] LABS: CALCIUM-PROTEIN CORRECTED 7.2 MG/DL (8.5-10.1)
[2016-09-08] MEDS: SODIUM BICARBONATE 8.4% INJ 150 MEQ in WATER STERILE FOR INJ 1,000 ML IV SCH ×2 (14:52→21:51)
[2016-09-08 16:34] LABS: BLOOD GAS BASE EXCESS -2.9 mmol/L (-2-2); BLOOD GAS CARBOXYHEMOGLOBIN 0.8 % (0-4); BLOOD GAS HCO3 22 mmol/L (22-26); BLOOD GAS METHEMOGLOBIN 0.7 % (0-2); BLOOD GAS O2 HGB SATURATION 93 % (90-100); BLOOD GAS OXYGEN CONTENT 18.4 Vol % (12.0-20.0); BLOOD GAS PCO2 41 mmHg (38-42); BLOOD GAS PO2 67 mmHg (61-120); BLOOD GAS TOTAL HGB 14.1 G/DL (12.0-16.0); CRITICAL VALUE NO; OXYGEN DEVICE VENTILATOR; TEMP CORR TO 98.6
[2016-09-08 16:36] LABS: DRAW SITE ART LINE; FIO2 50 %; STAT NO
[2016-09-08 17:07] LABS: AUTOMATED NEUTROPHIL # 1.9 TH/MM3 (1.8-7.7); BASOPHIL % 0.2 % (0.0-2.0); EOSINOPHIL % 0.4 % (0.0-4.0); HEMATOCRIT 41.5 % (35.0-46.0); HEMO FLAGS DIFF FINAL; LYMPHOCYTE # 0.6 TH/MM3 (1.0-4.8); MEAN CELL VOLUME 85.3 FL (80.0-100.0); MEAN CORPUSCULAR HEMOGLOBIN 28.6 PG (27.0-34.0); MEAN CORPUSCULAR HGB CONC 33.5 % (32.0-36.0); MONO % 4.2 % (0.0-8.0); NEUT % 72.2 % (16.0-70.0); PLATELET COUNT 140 TH/MM3 (150-450); RED BLOOD COUNT 4.87 MIL/MM3 (4.00-5.30); RED CELL DISTRIBUTION WIDTH 14.5 % (11.6-17.2); WHITE BLOOD COUNT 2.7 TH/MM3 (4.0-11.0)
[2016-09-08 17:12] LABS: BICARBONATE 23.7 MEQ/L (21.0-32.0); MAGNESIUM 1.5 MG/DL (1.5-2.5); POTASSIUM 3.3 MEQ/L (3.5-5.1)
[2016-09-08 17:32] LABS: CALCIUM-PROTEIN CORRECTED 7.7 MG/DL (8.5-10.1)
--- NOTE | 2016-09-08 20:54 | EKG ---
Date Performed: 09/07/2016 Time Performed: 22:56:08 PTAGE: 89 years EKG: Sinus tachycardia. Normal ECG except for rate NO PREVIOUS TRACING DOCTOR: Samreen Moran Interpretating Date/Time 09/08/2016 20:53:04
[2016-09-08 21:33] LABS: BETA HCG QUANT LESS THAN 1 MIU/ML (0-5)
[2016-09-08] MEDS: NOREPINEPHRINE INJ 4 MG in SODIUM CHLOR 0.9% 250 ML INJ 246 ML IV SCH (21:51)
[2016-09-08] MEDS: MAGNESIUM SULFATE INJ 2 GM in SODIUM CHLORIDE 0.9% INJ 96 ML IV PRN (21:51)
[2016-09-09] VITALS (18 sets, daily range): BP systolic 91–114; BP diastolic 51–84; PULSE 65–127; RESP 20–33; TEMP 91.9–97.3; O2SAT 95–100
[2016-09-09] MEDS: PIPERACIL-TAZO 4.5 GM PREMIX 100 ML IV SCH ×4 (02:25→21:24)
[2016-09-09] MEDS: CHLORHEXIDINE GLUCONATE 2 % 1 PACK (2 CLOTHS) TOP SCH (04:00)
[2016-09-09 05:03] LABS: HEMATOCRIT 42.2 % (35.0-46.0); MEAN CELL VOLUME 82.2 FL (80.0-100.0); MEAN CORPUSCULAR HEMOGLOBIN 28.4 PG (27.0-34.0); MEAN CORPUSCULAR HGB CONC 34.5 % (32.0-36.0); PLATELET COUNT 105 TH/MM3 (150-450); RED BLOOD COUNT 5.14 MIL/MM3 (4.00-5.30); RED CELL DISTRIBUTION WIDTH 14.3 % (11.6-17.2); REVIEW FLAG FINAL; WHITE BLOOD COUNT 4.3 TH/MM3 (4.0-11.0)
[2016-09-09] MEDS: SODIUM BICARBONATE 8.4% INJ 150 MEQ in WATER STERILE FOR INJ 1,000 ML IV SCH (05:26)
--- NOTE | 2016-09-09 06:05 | MB ---
cc: VINCE TORRES M.D. DATE OF CONSULTATION 09/08/2016 REASON FOR CONSULTATION Encephalopathy. HISTORY OF PRESENT ILLNESS The patient has a 20-year-old female brought in as a Trauma Alert. She was found hanging from a pull-up bar. She was in asystole at the scene, treated with epinephrine and regained a pressure after that. Initially she was unresponsive. GCS was 3. The patient has been unresponsive. There has been no seizure activity at present. CURRENT MEDICATIONS 1. Sodium bicarbonate. 2. Piperacillin. NEUROLOGIC EXAMINATION Blood pressure is 106/79, pulse is 112, respirations 30, temperature 91 degrees. Higher cortical function - She is not responsive. Does not withdraw to noxious stimuli. Does not follow any commands. The pupils are 1-mm, symmetric, sluggishly reactive. Extraocular movements are intact to doll's eyes. Gag reflex diminished. On motor exam there is no spontaneous limb movement. There is no posturing. Reflexes are symmetric. IMAGING STUDIES CT of the brain is normal. LABORATORY DATA White count 2700, hemoglobin 13.9, hematocrit 41%, platelets 140,000. Sodium 148, potassium 3.3, chloride 115, CO2 is 23.7. The BUN is 12, creatinine 0.98, GFR 73, calcium 6.7, protein corrected calcium 7.7, AST 45, ALT is 18. IMPRESSION Probable hypoxic encephalopathy. RECOMMENDATIONS I would like to get an MRI of the brain for further evaluation as well as an EEG for further evaluation. MD ABRAN Richards/BUSHRA /8:44 PM /5:53 AM
[2016-09-09] MEDS ORDERED: LORazepam 2 MG/ML VIAL ONE ×2 (06:53→06:57)
[2016-09-09 06:54] LABS: BLOOD GAS BASE EXCESS -0.8 mmol/L (-2-2); BLOOD GAS CARBOXYHEMOGLOBIN 0.9 % (0-4); BLOOD GAS HCO3 22 mmol/L (22-26); BLOOD GAS METHEMOGLOBIN 0.6 % (0-2); BLOOD GAS O2 HGB SATURATION 98 % (90-100); BLOOD GAS OXYGEN CONTENT 19.5 Vol % (12.0-20.0); BLOOD GAS PCO2 28 mmHg (38-42); BLOOD GAS PO2 134 mmHg (61-120); TEMP CORR TO 98.6
[2016-09-09 06:55] LABS: CRITICAL VALUE YES; OXYGEN DEVICE VENTILATOR
[2016-09-09 06:57] LABS: DRAW SITE ART LINE; FIO2 40 %; STAT YES
[2016-09-09] MEDS: PROPOFOL 1000 MG/100 ML IV SCH ×2 (07:00→17:58)
[2016-09-09 07:23] LABS: BICARBONATE 21.4 MEQ/L (21.0-32.0); POTASSIUM 3.4 MEQ/L (3.5-5.1)
[2016-09-09] MEDS: PHENYLEPHRINE INJ 40 MG in SODIUM CHLORID 0.9% 500 ML INJ 496 ML IV SCH ×6 (07:30→17:55)
[2016-09-09] MEDS ORDERED: PHENYLEPHRINE HCL 10 MG/ML VIAL ONE ×2 (07:33→07:34)
[2016-09-09] MEDS ORDERED: LORazepam 2 MG/ML VIAL IV ONE (08:00)
[2016-09-09 08:45] LABS: CALCIUM-PROTEIN CORRECTED 8.4 MG/DL (8.5-10.1)
[2016-09-09] MEDS: DOCUSATE SODIUM 100 MG CAP PO SCH ×2 (09:00→21:33)
[2016-09-09] MEDS ORDERED: FOSPHENYTOIN INJ 1,000 MGPE in SODIUM CHLORIDE 0.9% INJ 50 ML IV ONE (09:00)
--- NOTE | 2016-09-09 09:01 | HHI.CCPN ---
Subjective Remarks/Hospital Course 19 years old was brought in as a trauma alert. He has had to hanged herself and was found by her roommate. Unknown time of hanging. When fire department arrived patient was in asystole. CPR was started and one round of meds were given as per ACLS protocol. There was return of spontaneous circulation soon after that. Patient was brought in getting breaths by BV. She had a blood pressure and half way to arriving to the ER she started having some spontaneous respirations. She continued to be a GCS 3 when she arrived. She is admitted to critical care unit and therapeutic hypothermia protocol is initiated. SUBJ 09/08/16: Patient achieving target temperature but developing severe shock. Levothroid had been increased to 30 mcg/m Mehdi-Synephrine added. Additional fluid boluses ordered currently on bicarbonate infusion additional one amp of bicarbonate given. Chest x-ray shows severe aspiration pneumonitis predominantly right lower lobe infiltrates. Zosyn 4.5 GM IV q8 started, give single dose of vanc 09/09/16: Patient is in the rewarming phase of hypothermia protocol. Once sedation was lightened and taken off the Nimbex, patient started developing tonic-clonic generalized seizure like activity. Bolused with a total of 6 mg Ativan in divided doses and restarted on Versed and propofol infusions. Loaded with Cerebyx 1 g and scheduled at 100 mg every 8 hours. Stat EEG pending. Neurology following Objective Vital Signs Date Time Temp Pulse Resp B/P Pulse Ox O2 Delivery O2 Flow Rate FiO2 09/09/16 08:44 98 40 09/09/16 06:00 127 09/09/16 04:00 94.2 30 113/83 09/08/16 07:00 Mechanical Ventilator 09/07/16 17:57 15.00 Intake and Output 09/08/16 09/08/16 09/09/16 08:00 16:00 00:00 Intake Total 3030 ml 3738 ml 2888 ml Output Total 640 ml 3510 ml 1405 ml Balance 2390 ml 228 ml 1483 ml Result Diagram: 09/09/16 0435 09/09/16 0435 Other Results Laboratory Tests Test 09/08/16 09/08/16 09/08/16 09/09/16 09:44 11:52 16:20 06:34 Blood Gas Puncture Site ART LINE ART LINE ART LINE ART LINE Blood Gas Patient Temperature 98.6 98.6 98.6 98.6 Blood Gas HCO3 20 mmol/L 19 mmol/L 22 mmol/L 22 mmol/L (22-26) (22-26) (22-26) (22-26) Blood Gas Base Excess -5.2 mmol/L -6.6 mmol/L -2.9 mmol/L -0.8 mmol/L (-2-2) (-2-2) (-2-2) (-2-2) Blood Gas Oxygen Saturation 95 % (90-100) 93 % (90-100) 93 % (90-100) 98 % (90- 100) Arterial Blood pH 7.28 7.28 7.35 7.51 (7.380-7.420) (7.380-7.420) (7.380-7.420) (7.380-7.420) Arterial Blood Partial 45 mmHg (38-42) 42 mmHg (38-42) 41 mmHg (38-42) 28 mmHg ( 38-42) Pressure CO2 Arterial Blood Partial 81 mmHg 68 mmHg 67 mmHg 134 mmHg Pressure O2 (61-120) (61-120) (61-120) (61-120) Arterial Blood Oxygen Content 16.4 Vol % 17.9 Vol % 18.4 Vol % 19.5 Vol % (12.0-20.0) (12.0-20.0) (12.0-20.0) (12.0-20.0) Arterial Blood 0.7 % (0-4) 0.6 % (0-4) 0.8 % (0-4) 0.9 % (0-4) Carboxyhemoglobin Arterial Blood Methemoglobin 0.8 % (0-2) 0.6 % (0-2) 0.7 % (0-2) 0.6 % (0-2) Blood Gas Hemoglobin 12.3 G/DL 13.7 G/DL 14.1 G/DL 14.0 G/DL (12.0-16.0) (12.0-16.0) (12.0-16.0) (12.0-16.0) Oxygen Delivery Device VENTILATOR VENTILATOR VENTILATOR VENTILATOR Blood Gas Ventilator Setting AC/PC COMMENT Blood Gas Inspired Oxygen 80 % 60 % 50 % 40 % Imaging Last [address] 09/07/16 1800 Signed Impressions: Service Date/Time: Wednesday, September 07, 2016 18:06 - CONCLUSION: Normal examination. Artem Madera MD Chest X-Ray 09/07/16 1800 Signed Impressions: Service Date/Time: Wednesday, September 07, 2016 17:49 - CONCLUSION: Subtle densities in the upper lobes. Otherwise unremarkable chest. Artem Madera MD ADDENDUM: See above. Artem Madera MD Cervical Spine CT 09/07/16 1800 Signed Impressions: Service Date/Time: Wednesday, September 07, 2016 18:06 - CONCLUSION: 1. No fracture or subluxation. 2. Scattered groundglass nodules throughout the upper lobes, nonspecific but can be seen with hypersensitivity pneumonitis. Artem Madera MD Objective Remarks GENERAL: Well-nourished, well-developed patient. Seizure-like activity witnessed SKIN: Warm and dry. HEAD: Normocephalic. Pupils are 2 mm bilaterally fixed EYES: No scleral icterus. No injection or drainage. NECK: Supple, trachea midline. No JVD or lymphadenopathy. CARDIOVASCULAR: Tachycardic rhythm. No murmurs RESPIRATORY: Breath sounds equal bilaterally. Basilar rhonchi and crackles GASTROINTESTINAL: Abdomen soft, non-tender, nondistended. MUSCULOSKELETAL: No cyanosis, or edema. BACK: Nontender without obvious deformity. No CVA tenderness. EXTREMITIES: No movement NEURO: Intubated sedated. Pupils are 2 mm nonreactive. No corneal reflex. No withdrawal to deep pain. GCS 3T A/P Assessment and Plan NEURO: Severe anoxic brain injury Attempted suicide by hanging Seizure versus myoclonus - In re warming phase of induced hypothermia - Received 6 mg IV Ativan, started on propofol and Versed infusions - Stat EEG. Cerebyx 1 g loading dose and 100 mg every 8 - Neurology Dr. Wong following - From initial clinical exam prognosis appears poor - EEG, MRI after completion of induced hypothermia - Toxicology negative CV: Shock (neurogenic cardiogenic and septic) improving Status postcardiac arrest - Continue aggressive fluid resuscitation - Levophed and Mehdi-Synephrine to keep MAP >65 - Flow track monitoring - Trend lactic acid, bedside echo with slightly reduced EF. Get formal echo once off pressors Resp: Acute hypoxemic respiratory failure Pre-hospital Aspiration pneumonitis Acute lung injury/ARDS - Intubated for an airway protection, now with severe hypoxemic respiratory failure - Combined metabolic and respiratory acidosis - PCV ventilation with Insp pr 28, PEEP 7 RR 24, check repeat ABG - No weaning until neurologically improved - Patient has evidence of aspiration on admission as indicated by right lower lobe infiltrate - Continue empiric Zosyn GI: - Nothing by mouth, Pepcid Renal: - IV fluid as above, Benjamin catheter, monitor BUN/creatinine ID: Septic shock Aspiration pneumonia - Check blood urine and sputum cultures - Zosyn 4.5 g IV every 6 hours, vancomycin 1 g IV 1 Endo: - Electrolyte replacement per protocol - Sliding-scale insulin HEME: Leukopenia - Leukopenia most likely from developing sepsis - Monitor CBC CMP coags DVT GI prophylaxis - Subcutaneous heparin and Pepcid Lines: - Right femoral cooling catheter and right brachial arterial line placed by Dr. England Critical Care: The total critical care time was 85 minutes discontinuously. Time to perform other separately billable procedures was not included in the critical care time. Lyndon Bhatt MD Sep 09, 2016 09:01
[2016-09-09] MEDS ORDERED: TERBUTALINE INJ 1 MG/ML AMP SQ PRN ×2 (09:45→18:00)
[2016-09-09] MEDS ORDERED: PHENYLEPHRINE 40 MG/D5W 496 ML ADMIX IV SCH ×2 (09:45)
[2016-09-09] MEDS: NOREPINEPHRINE INJ 4 MG in SODIUM CHLOR 0.9% 250 ML INJ 246 ML IV SCH ×4 (09:55→17:54)
[2016-09-09] MEDS: POTASSIUM CHLOR 40 MEQ PREMIX 100 ML IV PRN (10:06)
[2016-09-09] MEDS: SODIUM CHLOR 0.9% 1000 ML INJ 1,000 ML IV SCH ×2 (10:40→11:00)
[2016-09-09] MEDS ORDERED: Vancomycin Consult Pharmacy 1 EA OTHER SCH (10:45)
[2016-09-09] MEDS ORDERED: VANCOMYCIN INJ 1,000 MG in SODIUM CHLOR 0.9% 250 ML INJ 250 ML IV ONE (10:45)
[2016-09-09] MEDS: FOSPHENYTOIN SODIUM 100 MG PE/2 ML VIAL IV SCH ×2 (14:00→21:25)
--- NOTE | 2016-09-09 15:01 | RADRPT ---
EXAM DATE/TIME: 09/09/2016 13:37 [facility] COMPARISON: CHEST SINGLE AP, September 08, 2016, 5:29. INDICATIONS : Respiratory failure. MEDICAL HISTORY : None. SURGICAL HISTORY : None. ENCOUNTER: Subsequent ACUITY: 3 days PAIN SCORE: Non-responsive. LOCATION: Bilateral chest FINDINGS: A single view of the chest demonstrates interval improvement in the radiographic appearance of the ch est. The airspace infiltrates in the right lower lobe and left upper lobe are markedly improved. No a ssociated effusions. Heart size is normal. Endotracheal tube remains appropriately positioned above t he serafin with the nasogastric tube entering the stomach and extending off the inferior aspect of the film. Osseous structures are intact. CONCLUSION: 1. Marked improvement in the radiographic appearance of the chest with almost complete resolution of the previously seen right lower and left upper lung infiltrates. 2. Stable position of life support tubes. Marvin Dorsey MD on September 09, 2016 at 14:43 Board Certified Radiologist. This report was verified electronically.
[2016-09-09] MEDS ORDERED: GADODIAMIDE PF 287 MG/ML 20 ML VIAL (for RAD MRI) IV ONE (16:39)
[2016-09-09] MEDS ORDERED: PHENYLEPHRINE HCL 160 MG/D5W 484 ML ADMIX IV SCH ×2 (18:00)
[2016-09-09] MEDS ORDERED: NOREPINEPHRINE 16 MG/D5W 250 ML IV SCH ×2 (18:00)
--- NOTE | 2016-09-09 18:07 | RADRPT ---
EXAM DATE/TIME: 09/09/2016 16:02 CORRECTION Corrected on: September 09, 2016; [facility] COMPARISON: CT BRAIN W/O CONTRAST, September 07, 2016, 18:06. INDICATIONS : Hypoxic encephalopathy. Post hanging. CONTRAST: 20 cc Omniscan (gadodiamide) IV MEDICAL HISTORY : None. SURGICAL HISTORY : None. ENCOUNTER: Initial ACUITY: 2 day PAIN SCORE: Nonresponsive. LOCATION: Head. TECHNIQUE: Multiplanar, multisequence MRI of the brain was performed both prior to and following the administration of paramagnetic contrast. FINDINGS: There is evidence of FLAIR-weighted hyperintensities involving the caudate lobes bilate rally and the bilateral hummel radiata as well as the parietal and occipital cortex bilaterally sugge stive of anoxic encephalopathy. No acute hemorrhage, midline shift or extra-axial bleed is noted. T he ventricles, sulci and cisterns are normal in size, shape and position for the patient's age. No ab normal enhancement is noted within the brain parenchyma. There is a small fluid level within the rig ht sphenoid sinus. CONCLUSION: 1. Diffuse FLAIR-weighted hyperintensities involving the caudate nuclei bilaterally, bilateral hummel radiata, as well as the bilateral parietal and occipital cortex consistent with the patient's clinic al diagnosis of anoxic encephalopathy. 2. No acute hemorrhage, midline shift, extra-axial fluid collection or abnormal enhancement. 3. Small fluid level within the right sphenoid sinus. Tray Santiago MD on September 09, 2016 at 18:01 Board Certified Radiologist. This report was verified electronically. Tray Santiago MD on September 09, 2016 at 18:23 Board Certified Radiologist. This report was verified electronically.
--- NOTE | 2016-09-09 18:11 | RADRPT ---
EXAM DATE/TIME: 09/09/2016 16:02 [facility] COMPARISON: MRA CAROTIDS W CONTRAST, September 09, 2016, 16:02. CT CERVICAL SPINE W/O CONTRAST, September 07, 2016, 18:06. INDICATIONS : Trauma. Post hanging. MEDICAL HISTORY : None. SURGICAL HISTORY : None. ENCOUNTER: Initial ACUITY: 2 day PAIN SCORE: Nonresponsive. LOCATION: Neck. TECHNIQUE: Multiplanar, multisequence MRI examination of the cervical spine was performed. FINDINGS: VERTEBRAE: Normal vertebral body height. Homogeneous marrow signal. ALIGNMENT: No evidence of subluxation. CORD: Normal configuration and signal. POST FOSSA: The cerebellar tonsils are normal in position. C2-C3: The thecal sac has a normal configuration. There is no evidence of disc herniation or spinal canal s tenosis. The neural foramina are patent bilaterally. C3-C4: The thecal sac has a normal configuration. There is no evidence of disc herniation or spinal canal s tenosis. The neural foramina are patent bilaterally. C4-C5: The thecal sac has a normal configuration. There is no evidence of disc herniation or spinal canal s tenosis. The neural foramina are patent bilaterally. C5-C6: Very minimal degenerative disc disease at C5-6. The thecal sac has a normal configuration. There is no evidence of disc herniation or spinal canal stenosis. The neural foramina are patent bilaterally. C6-C7: The thecal sac has a normal configuration. There is no evidence of disc herniation or spinal canal s tenosis. The neural foramina are patent bilaterally. C7-T1: The thecal sac has a normal configuration. There is no evidence of disc herniation or spinal canal s tenosis. The neural foramina are patent bilaterally. CONCLUSION: 1. Very minimal degenerative disc disease at C5-6. 2. No acute fracture or prevertebral soft tissue swelling. 3. No focal cervical cord abnormality. Tray Santiago MD on September 09, 2016 at 18:06 Board Certified Radiologist. This report was verified electronically.
--- NOTE | 2016-09-09 18:26 | RADRPT ---
EXAM DATE/TIME: 09/09/2016 16:02 [facility] COMPARISON: No previous studies available for comparison. INDICATIONS : Dissection. Post hanging. CONTRAST: 20 cc Omniscan (gadodiamide) IV MEDICAL HISTORY : None. SURGICAL HISTORY : None. ENCOUNTER: Initial ACUITY: 2 day PAIN SCORE: Nonresponsive. LOCATION: Neck. Percent stenosis is calculated using the diameter of the stenotic region over the diameter of the nor mal distal internal carotid artery. TECHNIQUE: Bolus infused MRA of the extracranial circulation was performed using a neurovascular coil. Post pro cessing was performed including rotating subvolume maximum intensity projections of each carotid arianna ry, rotating full volume maximum intensity projections of both carotid arteries, sagittal and coronal sliding thin slab reformations of each carotid artery, and left oblique sliding thin slab reformatio n through the aortic arch to include the origin of the arch branch vessels. FINDINGS: There is moderate to severe narrowing of the left common carotid artery and moderate narrowing of the proximal right common carotid artery. There is also some narrowing of both proximal vertebral arteri es. It is not clear if this is due to vasospasm or extrinsic compression related to recent hanging .T he distal vertebral and internal carotid arteries have a more normal caliber. There is no complete oc clusion. Dissection is not identified. CONCLUSION: 1. Moderate to severe smooth narrowing of the left common carotid artery and also moderate narrowing of the proximal right common carotid artery as well as narrowing of both proximal vertebral arteries likely related to recent hanging. Etiology could be related to vasospasm or recent extrinsic prolonge d compression. The distal internal carotid arteries and vertebral artery have more normal calibers. Findings called to Dr. Bhatt at the time of dictation. Gideon Brown MD on September 09, 2016 at 18:19 Board Certified Radiologist. This report was verified electronically.
[2016-09-09] MEDS: PHENYLEPHRINE INJ 160 MG in SODIUM CHLORID 0.9% 500 ML INJ 484 ML IV SCH (20:50)
[2016-09-09] MEDS: NOREPINEPHRINE INJ 16 MG in SODIUM CHLOR 0.9% 250 ML INJ 234 ML IV SCH (20:50)
[2016-09-09] MEDS: VANCOMYCIN 1,000 MG/NS 250 ML IV SCH ×2 (21:27)
[2016-09-09] MEDS: PANTOPRAZOLE SODIUM 40 MG VIAL IVP SCH (21:33)
[2016-09-10] VITALS (19 sets, daily range): BP systolic 104–143; BP diastolic 55–69; PULSE 96–126; RESP 20–30; TEMP 97.5–100.9; O2SAT 98–100
[2016-09-10] MEDS: PROPOFOL 1000 MG/100 ML IV SCH (01:08)
[2016-09-10] MEDS: PIPERACIL-TAZO 4.5 GM PREMIX 100 ML IV SCH ×4 (01:08→20:45)
[2016-09-10] MEDS: CHLORHEXIDINE GLUCONATE 2 % 1 PACK (2 CLOTHS) TOP SCH (04:00)
[2016-09-10] MEDS: VANCOMYCIN 1,000 MG/NS 250 ML IV SCH ×6 (04:37→20:46)
[2016-09-10] MEDS: PHENYLEPHRINE INJ 160 MG in SODIUM CHLORID 0.9% 500 ML INJ 484 ML IV SCH (04:52)
[2016-09-10] MEDS: NOREPINEPHRINE INJ 16 MG in SODIUM CHLOR 0.9% 250 ML INJ 234 ML IV SCH (04:52)
[2016-09-10 05:15] LABS: HEMATOCRIT 36.1 % (35.0-46.0); MEAN CELL VOLUME 85.3 FL (80.0-100.0); MEAN CORPUSCULAR HEMOGLOBIN 28.2 PG (27.0-34.0); MEAN CORPUSCULAR HGB CONC 33.1 % (32.0-36.0); PLATELET COUNT 124 TH/MM3 (150-450); RED BLOOD COUNT 4.23 MIL/MM3 (4.00-5.30); RED CELL DISTRIBUTION WIDTH 15.5 % (11.6-17.2)
[2016-09-10 05:20] LABS: HEMO FLAGS AUTO DIFF
[2016-09-10 05:51] LABS: ALKALINE PHOSPHATASE 29 U/L (45-117); ALT (GPT) 56 U/L (9-42); ANION GAP 11 MEQ/L (5-15); AST (GOT) 101 U/L (16-38); BICARBONATE 18.2 MEQ/L (21.0-32.0); BLOOD UREA NITROGEN 10 MG/DL (7-18); CHLORIDE 116 MEQ/L (98-107); GLOMERULAR FILTRATION RATE 68 ML/MIN (>89); MAGNESIUM 1.7 MG/DL (1.5-2.5); POTASSIUM 4.9 MEQ/L (3.5-5.1); SODIUM (NA) 145 MEQ/L (136-145); TOTAL BILIRUBIN ADULT 0.5 MG/DL (0.2-1.0)
--- NOTE | 2016-09-10 05:54 | RADRPT ---
EXAM DATE/TIME: 09/10/2016 05:17 [facility] COMPARISON: CHEST SINGLE AP, September 09, 2016, 13:37. INDICATIONS : Respiratory disease. MEDICAL HISTORY : None. SURGICAL HISTORY : None. ENCOUNTER: Subsequent ACUITY: 4 - 6 days PAIN SCORE: Non-responsive. LOCATION: Bilateral chest FINDINGS: Single AP view of the chest. Endotracheal tube, nasogastric tube remain in place. Mild bilateral charan hilar pulmonary opacity unchanged. Medial left lower lobe consolidation is less prominent. No evidenc e of pleural effusion or pneumothorax. CONCLUSION: Decrease in prominence of medial left lower lobe consolidation. Mild bilateral perihilar opacity unch anged. Dennis Guaman MD on September 10, 2016 at 5:51 Board Certified Radiologist. This report was verified electronically.
[2016-09-10] MEDS: FOSPHENYTOIN SODIUM 100 MG PE/2 ML VIAL IV SCH ×3 (06:01→20:45)
--- NOTE | 2016-09-10 07:21 | HHI.CCPN ---
Subjective Remarks/Hospital Course 19 years old was brought in as a trauma alert. He has had to hanged herself and was found by her roommate. Unknown time of hanging. When fire department arrived patient was in asystole. CPR was started and one round of meds were given as per ACLS protocol. There was return of spontaneous circulation soon after that. Patient was brought in getting breaths by BV. She had a blood pressure and half way to arriving to the ER she started having some spontaneous respirations. She continued to be a GCS 3 when she arrived. She is admitted to critical care unit and therapeutic hypothermia protocol is initiated. SUBJ 09/08/16: Patient achieving target temperature but developing severe shock. Levothroid had been increased to 30 mcg/m Mehdi-Synephrine added. Additional fluid boluses ordered currently on bicarbonate infusion additional one amp of bicarbonate given. Chest x-ray shows severe aspiration pneumonitis predominantly right lower lobe infiltrates. Zosyn 4.5 GM IV q8 started, give single dose of vanc 09/09/16: Patient is in the rewarming phase of hypothermia protocol. Once sedation was lightened and taken off the Nimbex, patient started developing tonic-clonic generalized seizure like activity. Bolused with a total of 6 mg Ativan in divided doses and restarted on Versed and propofol infusions. Loaded with Cerebyx 1 g and scheduled at 100 mg every 8 hours. Stat EEG pending. Neurology following 09/10/16: Remains on high dose of vasopressors, MRI brain shows evidence of anoxic brain injury. MRA neck bilateral common carotid narrowing. Start on aspirin get vascular surgery consult. No further seizure-like episodes noted. Pupils are equal bilaterally with slight withdrawal of right lower extremity to central pain. Objective Vital Signs Date Time Temp Pulse Resp B/P Pulse Ox O2 Delivery O2 Flow Rate FiO2 09/10/16 06:00 100 09/10/16 04:11 100 40 09/10/16 04:00 98.2 20 118/64 09/08/16 07:00 Mechanical Ventilator 09/07/16 17:57 15.00 Intake and Output 09/09/16 09/09/16 09/10/16 08:00 16:00 00:00 Intake Total 680 ml 4960 ml 2470 ml Output Total 1275 ml 600 ml 725 ml Balance -595 ml 4360 ml 1745 ml Result Diagram: 09/10/16 0450 09/10/16 0450 Other Results Microbiology Date/Time Procedure Status Source Growth 09/08/16 09:30 Gram Stain - Final Complete Sputum Endotracheal 09/08/16 09:30 Sputum Culture - Final Complete Staphylococcus Aureus Imaging Last [address] 09/07/16 1800 Signed Impressions: Service Date/Time: Wednesday, September 07, 2016 18:06 - CONCLUSION: Normal examination. Artem Madera MD Chest X-Ray 09/07/16 1800 Signed Impressions: Service Date/Time: Wednesday, September 07, 2016 17:49 - CONCLUSION: Subtle densities in the upper lobes. Otherwise unremarkable chest. Artem Madera MD ADDENDUM: See above. Artem Madera MD Cervical Spine CT 09/07/16 1800 Signed Impressions: Service Date/Time: Wednesday, September 07, 2016 18:06 - CONCLUSION: 1. No fracture or subluxation. 2. Scattered groundglass nodules throughout the upper lobes, nonspecific but can be seen with hypersensitivity pneumonitis. Artem Madera MD Objective Remarks GENERAL: Well-nourished, well-developed patient. Comatose SKIN: Warm and dry. HEAD: Normocephalic. Pupils are 3 mm bilaterally reactive to light EYES: No scleral icterus. No injection or drainage. NECK: Supple, trachea midline. No JVD or lymphadenopathy. Contusion anterior neck from hanging, carotids palpable CARDIOVASCULAR: Tachycardic rhythm. No murmurs. Remains on Levothroid and vasopressin RESPIRATORY: Breath sounds equal bilaterally. Basilar rhonchi and crackles GASTROINTESTINAL: Abdomen soft, non-tender, nondistended. MUSCULOSKELETAL: No cyanosis, or edema. BACK: Nontender without obvious deformity. No CVA tenderness. EXTREMITIES: No movement NEURO: Intubated sedated. Pupils are 3 mm reactive. No corneal reflex. Slight withdrawal of right foot to central pain Urinary Catheter: Yes Assessment to: Continue Vascular Central Line Catheter: Yes Assessment to: Continue A/P Assessment and Plan NEURO: Severe anoxic brain injury Bilateral common carotid narrowing Attempted suicide by hanging Seizure versus myoclonus - MRI shows evidence of anoxic brain injury. MRI with bilateral common carotid narrowing-vascular surgery consult start aspirin - s/p induced hypothermia. Very mild improvement in neuro exam nothing meaningful - Continue propofol. Cerebyx started yesterday for seizure versus myoclonus EEG report pending check Dilantin level - Neurology Dr. Wong following - Toxicology negative CV: Shock (neurogenic cardiogenic and septic) Status postcardiac arrest - Continue fluid resuscitation - Levophed and Mehdi-Synephrine to keep MAP >65 - Flow track monitoring, CVP monitoring after upper body central line placement - Bedside echo with slightly reduced EF. Get formal echo once off pressors Resp: Acute hypoxemic respiratory failure Pre-hospital Aspiration pneumonitis Acute lung injury - Intubated for airway protection, now with severe hypoxemic respiratory failure from pre hospital aspiration - Combined metabolic and respiratory acidosis, improved - PCV ventilation change to PRVC - No weaning until neurologically improved - Patient has evidence of aspiration on admission as indicated by right lower lobe infiltrate - Continue empiric Zosyn GI: - Nothing by mouth, Pepcid - Start tube feedings after central line placement Renal: - IV fluid as above, Benjamin catheter, monitor BUN/creatinine ID: Septic shock Aspiration pneumonia, prehospital - F/u blood urine and sputum cultures. Sputum with MSSA - Zosyn 4.5 g IV every 6 hours, vancomycin pharmacy dosing Endo: - Electrolyte replacement per protocol - Sliding-scale insulin if needed HEME: Leukopenia, resolved and now leukocytosis - Leukopenia most likely from developing sepsis - Monitor CBC CMP coags DVT GI prophylaxis - Subcutaneous heparin and Pepcid Lines: - Right femoral cooling catheter and right brachial arterial line placed by Dr. England-DC both. Place subclavian central line Critical Care: The total critical care time was 55 minutes discontinuously. Time to perform other separately billable procedures was not included in the critical care time. Patient remains very critically ill remains in septic neurogenic shock. MRI shows evidence of anoxic brain injury. Prognosis remains poor for neurological recovery. Family is being updated on a daily basis Lyndon Bhatt MD Sep 10, 2016 07:21
[2016-09-10 07:41] LABS: BANDS 35 % (0-6); NEUTROPHIL # MANUAL DIFF 16.9 TH/MM3 (1.8-7.7); PLATELET ESTIMATE SMEAR LOW (NORMAL); PLATELET MORPHOLOGY NORMAL (NORMAL); POLYS (SEG NEUTROPHILS) 59 % (16-70); SCAN/DIFF FINAL DIFF MANUAL; WBC DIFF SAMPLE 100
--- NOTE | 2016-09-10 07:55 | MG ---
cc: HÉCTOR WERNER M.D. Lab No: Date: 09/09/2016 Age: Sex: F Race: A stat EEG was obtained on this 20-year-old patient with history of being intubated on Diprivan and Fentanyl. Apparent history of suicide attempt. The patient's body was twitching as well. MEDICATIONS: 1. Cerebyx. 2. Versed. 3. Norepinephrine. DESCRIPTION OF THE RECORDING: The EEG is showing a diffuse theta and some delta rhythms. There is low amplitude beta rhythms. Perhaps most importantly there is some sharp discharge maximum central and posterior on the right. This EEG pattern is seen to be fairly typical with some fluctuations in the appearance of the sharp discharges. There is muscle artifact. INTERPRETATION: Abnormal EEG because of bihemispheric slowing and intermittent right central posterior sharp discharges which appear to be epileptiform. At times these discharges become a little bit more frequent and almost rhythmic, but there is no distinct ictal pattern. The findings correlate with bihemispheric abnormalities and the epileptiform discharges seem to be maximum right posterior central. Héctor Werner MD [facility] /2:21 PM /7:45 AM
[2016-09-10] MEDS: DOCUSATE SODIUM 100 MG CAP PO SCH (08:35)
[2016-09-10] MEDS ORDERED: MIDAZOLAM HCL 5 MG/ML VIAL (1 ML) ONE (09:43)
--- NOTE | 2016-09-10 10:06 | PD.PROCEDR ---
Central Line Procedure REASON FOR PROCEDURE Central venous access PROCEDURE PERFORMED Central line placement: L subclavian central line CONSENT Informed consent for procedure was obtained and time out performed. The risks and benefits of the procedure were discussed to include but limited to bleeding , clot formation, infection, and even . ANESTHESIA Local injection of 1% Lidocaine DESCRIPTION OF THE PROCEDURE The patient was placed in supine, mild Trendelenburg position. The area was exposed and cleansed with ChloraPrep, times two. Large sterile drape was used to cover the patient, with the site exposed, under sterile conditions including cap, face mask, sterile gown, and sterile gloves. On single attempt, the introducer needle was inserted with negative pressure in syringe and venous flash was obtained. The guide wire was then advanced without any restriction and the needle was removed. The dilator was used without any complications. Using Seldinger technique the 20 CM 7F triple lumen catheter was advanced over the guide wire to a depth of 18 centimeters. The guide wire was removed. All ports were aspirated with dark venous blood return and flushed easily with sterile saline. All ports were capped. Antibiotic disc was placed around central line at puncture site. The central line was secured to the skin with two interrupted 2.0 silk sutures. The area was bandaged with sterile see- through central line bandage. COMPLICATIONS: No apparent complications ESTIMATED BLOOD LOSS: Less than 1 cc. Lyndon Bhatt MD Sep 10, 2016 10:06
[2016-09-10] MEDS ORDERED: ACETAMINOPHEN 650 MG/20.3 ML UDC PO ONE (10:30)
--- NOTE | 2016-09-10 10:41 | RADRPT ---
EXAM DATE/TIME: 09/10/2016 10:15 [facility] COMPARISON: CHEST SINGLE AP, September 10, 2016, 5:17. INDICATIONS : Post central line placement MEDICAL HISTORY : respiratory/cardiac arrest, trauma alert SURGICAL HISTORY : None. ENCOUNTER: Subsequent ACUITY: 1 day PAIN SCORE: Non-responsive. LOCATION: Bilateral chest FINDINGS: Support apparatus including central line in good position. Patchy airspace disease in both lungs wor se on the right. The heart and pulmonary vascularity are normal. CONCLUSION: Negative for pneumothorax. Line in good position. Ricki Cavazos MD FACR on September 10, 2016 at 10:39 Board Certified Radiologist. This report was verified electronically.
[2016-09-10] MEDS: ASPIRIN 81 MG CHEW TAB CHEW SCH (11:19)
[2016-09-10] MEDS ORDERED: PHARMACY ORDERED LAB ONE (11:45)
[2016-09-10] MEDS ORDERED: DEXTROSE 50% IN WATER 50 ML SYRINGE ONE (12:49)
[2016-09-10] MEDS ORDERED: DEXTROSE 50% IN WATER 50 ML SYRINGE IV PUSH ONE ×2 (13:30→16:00)
[2016-09-10] MEDS ORDERED: MIDAZOLAM HCL 5 MG/ML VIAL (1 ML) IV PUSH ONE (14:15)
--- NOTE | 2016-09-10 17:27 | MB ---
cc: MD [facility] DATE OF CONSULTATION: 09/10/2016. REASON FOR CONSULTATION: Bilateral carotid stenosis. Strangulation injury. HISTORY OF PRESENT ILLNESS: This 20-year-old female was admitted to the hospital as a Priority One Trauma Alert after an attempted suicide by strangulation, i.e., hanging. The patient was asystolic at the scene and CPR was started. The heart rate was re-established and the patient was brought to the hospital. Her Carol Coma Scale on arrival was 3 and it remains 3 throughout this period. PAST MEDICAL HISTORY / PAST SURGICAL HISTORY: Not known. MEDICATIONS: Unobtainable. ALLERGIES: Unobtainable. The patient underwent a complete workup. During the period of the workup, she was found to have both common carotids stenotic and tapered left more than right on CTA of the neck. The question arises about any vascular implications of the same. PHYSICAL EXAMINATION: GENERAL: The physical examination reveals a 20-year-old female lying silently in bed. HEAD, EYES, EARS, NOSE, THROAT: Normocephalic. NECK: Bruising around the neck. CHEST: Bilateral breath sounds. The patient is fully ventilatory supported. HEART: Regular rhythm. Hemodynamically the patient is intact. ABDOMEN: The abdomen is soft. EXTREMITIES: Grossly within normal limits. NEUROLOGICAL EXAMINATION: Struthers Coma Scale is unchanged since the patient's arrival. The patient has anoxic brain injury. She was initially on hypothermia protocol and remains on high dose of vasopressors at this time. RECOMMENDATIONS: This patient sustained near by hanging. The MRI FLAIR images are consistent with anoxic encephalopathy and CTA of the neck and MRI reveal sort of stretching of the carotid arteries and narrowing of the same. I reviewed some of the literature pertaining to this subject and there is no literature indicating that carotid arteries which are injured during strangulation episodes should be in any way attended as far as surgical approach or endovascular stenting. In this case, the patient sustained strangulation of the carotid arteries as well as stretching of the same, so intimal damage is almost definitely there. There is no benefit to any surgical therapy at this point and I do not know what that would be. The patient should be placed on some sort of platelet inhibitor, aspirin or Plavix and carefully watched. Should there be an acute occlusion of the carotid artery, then a tPA lysis may be an option, but just for the fact that it is injured, no therapy of such sort should be instituted. In the bigger scheme of things, this patient sustained severe anoxic injury and the chance of a functional recovery is extremely small. At this point, I am sorry I have nothing more to offer to the care. Thank you very much for the referral. Stephanie MADRIGAL /4:56 PM /5:12 PM
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
[2016-09-10 20:25] LABS: BACTERIA, URINE MOD /hpf; BLOOD, URINE MOD (NEG); GLUCOSE,URINE NEG (NEG); GRANULAR CAST, URINE 9 /lpf; KETONE, URINE NEG (NEG); MUCUS URINE FEW /lpf (OCC); NITRITE,URINE NEG (NEG); PH, URINE 5.5 (5.0-8.5); URINE COLOR YELLOW (YELLW/STRAW)
[2016-09-10 20:26] LABS: COMMENT (UR) CATH-CULTURE IND; CULTURE IF INDICATED CATH CULTURE IND
[2016-09-10] MEDS: DOCUSATE SODIUM 100 MG/10 ML UDC PO SCH (20:46)
[2016-09-10] MEDS: PANTOPRAZOLE SODIUM 40 MG VIAL IVP SCH (20:46)
[2016-09-10] MEDS: ARTIFICIAL TEARS OPTH SOLN 15 ML BTL EACH EYE SCH (20:46)
[2016-09-11] VITALS (17 sets, daily range): BP systolic 102–137; BP diastolic 65–92; PULSE 96–126; RESP 18–28; TEMP 98.4–100.1; O2SAT 95–100
[2016-09-11] MEDS: PIPERACIL-TAZO 4.5 GM PREMIX 100 ML IV SCH ×4 (01:41→20:40)
[2016-09-11] MEDS: CHLORHEXIDINE GLUCONATE 2 % 1 PACK (2 CLOTHS) TOP SCH (04:00)
[2016-09-11] MEDS: FOSPHENYTOIN SODIUM 100 MG PE/2 ML VIAL IV SCH ×3 (05:43→20:40)
[2016-09-11] MEDS: VANCOMYCIN 1,000 MG/NS 250 ML IV SCH ×2 (05:52)
--- NOTE | 2016-09-11 08:10 | HHI.CCPN ---
Objective Vital Signs Date Time Temp Pulse Resp B/P Pulse Ox O2 Delivery O2 Flow Rate FiO2 09/11/16 06:00 98.6 09/11/16 06:00 123 09/11/16 04:49 97 40 09/11/16 04:00 28 125/75 09/08/16 07:00 Mechanical Ventilator 09/07/16 17:57 15.00 Intake and Output 09/10/16 09/10/16 09/11/16 08:00 16:00 00:00 Intake Total 752 ml 639 ml Output Total 500 ml 400 ml Balance 252 ml 239 ml Result Diagram: 09/10/16 0450 09/10/16 0450 Other Results Microbiology Date/Time Procedure Status Source Growth 09/08/16 09:30 Gram Stain - Final Complete Sputum Endotracheal 09/08/16 09:30 Sputum Culture - Final Complete Staphylococcus Aureus Imaging Last [address] 09/07/16 1800 Signed Impressions: Service Date/Time: Wednesday, September 07, 2016 18:06 - CONCLUSION: Normal examination. Artem Madera MD Chest X-Ray 09/07/16 1800 Signed Impressions: Service Date/Time: Wednesday, September 07, 2016 17:49 - CONCLUSION: Subtle densities in the upper lobes. Otherwise unremarkable chest. Artem Madera MD ADDENDUM: See above. Artem Madera MD Cervical Spine CT 09/07/16 1800 Signed Impressions: Service Date/Time: Wednesday, September 07, 2016 18:06 - CONCLUSION: 1. No fracture or subluxation. 2. Scattered groundglass nodules throughout the upper lobes, nonspecific but can be seen with hypersensitivity pneumonitis. MD Miller Morocho Sinoj K. MD Sep 11, 2016 08:09 Impressions: Service Date/Time: Wednesday, September 07, 2016 18:06 - CONCLUSION: Normal examination. Artem Madera MD Chest X-Ray 09/07/16 1800 Signed Impressions: Service Date/Time: Wednesday, September 07, 2016 17:49 - CONCLUSION: Subtle densities in the upper lobes. Otherwise unremarkable chest. Artem Madera MD ADDENDUM: See above. Artem Madera MD Cervical Spine CT 09/07/16 1800 Signed Impressions: Service Date/Time: Wednesday, September 07, 2016 18:06 - CONCLUSION: 1. No fracture or subluxation. 2. Scattered groundglass nodules throughout the upper lobes, nonspecific but can be seen with hypersensitivity pneumonitis. Artem Madera MD Objective Remarks GENERAL: Well-nourished, well-developed patient. Comatose SKIN: Warm and dry. HEAD: Normocephalic. Pupils are 3 mm bilaterally reactive to light EYES: No scleral icterus. No injection or drainage. NECK: Supple, trachea midline. No JVD or lymphadenopathy. Contusion anterior neck from hanging, carotids palpable CARDIOVASCULAR: Tachycardic rhythm. No murmurs. Remains on Levothroid and vasopressin RESPIRATORY: Breath sounds equal bilaterally. Basilar rhonchi and crackles GASTROINTESTINAL: Abdomen soft, non-tender, nondistended. MUSCULOSKELETAL: No cyanosis, or edema. BACK: Nontender without obvious deformity. No CVA tenderness. EXTREMITIES: No movement NEURO: Intubated sedated. Pupils are 3 mm reactive. No corneal reflex. Slight withdrawal of right foot to central pain A/P Assessment and Plan NEURO: Severe anoxic brain injury Bilateral common carotid narrowing Attempted suicide by hanging Seizure versus myoclonus - MRI shows evidence of anoxic brain injury. MRI with bilateral common carotid narrowing-vascular surgery consult start aspirin - s/p induced hypothermia. Very mild improvement in neuro exam nothing meaningful - Continue propofol. Cerebyx started yesterday for seizure versus myoclonus EEG report pending check Dilantin level - Neurology Dr. Wong following - Toxicology negative CV: Shock (neurogenic cardiogenic and septic) Status postcardiac arrest - Continue fluid resuscitation - Levophed and Mehdi-Synephrine to keep MAP >65 - Flow track monitoring, CVP monitoring after upper body central line placement - Bedside echo with slightly reduced EF. Get formal echo once off pressors Resp: Acute hypoxemic respiratory failure Pre-hospital Aspiration pneumonitis Acute lung injury - Intubated for airway protection, now with severe hypoxemic respiratory failure from pre hospital aspiration - Combined metabolic and respiratory acidosis, improved - PCV ventilation change to PRVC - No weaning until neurologically improved - Patient has evidence of aspiration on admission as indicated by right lower lobe infiltrate - Continue empiric Zosyn GI: - Nothing by mouth, Pepcid - Start tube feedings after central line placement Renal: - IV fluid as above, Benjamin catheter, monitor BUN/creatinine ID: Septic shock Aspiration pneumonia, prehospital - F/u blood urine and sputum cultures. Sputum with MSSA - Zosyn 4.5 g IV every 6 hours, vancomycin pharmacy dosing Endo: - Electrolyte replacement per protocol - Sliding-scale insulin if needed HEME: Leukopenia, resolved and now leukocytosis - Leukopenia most likely from developing sepsis - Monitor CBC CMP coags DVT GI prophylaxis - Subcutaneous heparin and Pepcid Lines: - Right femoral cooling catheter and right brachial arterial line placed by Dr. England-DC both. Place subclavian central line Critical Care: The total critical care time was 55 minutes discontinuously. Time to perform other separately billable procedures was not included in the critical care time. Patient remains very critically ill remains in septic neurogenic shock. MRI shows evidence of anoxic brain injury. Prognosis remains poor for neurological recovery. Family is being updated on a daily basis Lyndon Bhatt MD Sep 11, 2016 08:09
--- NOTE | 2016-09-11 08:16 | HHI.CCPN ---
Subjective Remarks/Hospital Course 19 years old was brought in as a trauma alert. He has had to hanged herself and was found by her roommate. Unknown time of hanging. When fire department arrived patient was in asystole. CPR was started and one round of meds were given as per ACLS protocol. There was return of spontaneous circulation soon after that. Patient was brought in getting breaths by BV. She had a blood pressure and half way to arriving to the ER she started having some spontaneous respirations. She continued to be a GCS 3 when she arrived. She is admitted to critical care unit and therapeutic hypothermia protocol is initiated. SUBJ 09/08/16: Patient achieving target temperature but developing severe shock. Levothroid had been increased to 30 mcg/m Mehdi-Synephrine added. Additional fluid boluses ordered currently on bicarbonate infusion additional one amp of bicarbonate given. Chest x-ray shows severe aspiration pneumonitis predominantly right lower lobe infiltrates. Zosyn 4.5 GM IV q8 started, give single dose of vanc 09/09/16: Patient is in the rewarming phase of hypothermia protocol. Once sedation was lightened and taken off the Nimbex, patient started developing tonic-clonic generalized seizure like activity. Bolused with a total of 6 mg Ativan in divided doses and restarted on Versed and propofol infusions. Loaded with Cerebyx 1 g and scheduled at 100 mg every 8 hours. Stat EEG pending. Neurology following 09/10/16: Remains on high dose of vasopressors, MRI brain shows evidence of anoxic brain injury. MRA neck bilateral common carotid narrowing. Start on aspirin get vascular surgery consult. No further seizure-like episodes noted. Pupils are equal bilaterally with slight withdrawal of right lower extremity to central pain. 09/11/16: Currently remains off all sedation in process. No noticeable improvement in neuro status, slight withdrawal x4. Aspirin started for bilateral common carotid narrowing-vascular surgery consult appreciated. Continue Cerebyx EEG sharp activity on eeg. MRI indicates diffuse anoxic brain injury with poor prognosis. EEG bihemispheric slowing and intermittent right central posterior sharp discharges which appear to be epileptiform. Dilantin level is therapeutic Objective Vital Signs Date Time Temp Pulse Resp B/P Pulse Ox O2 Delivery O2 Flow Rate FiO2 09/11/16 06:00 98.6 09/11/16 06:00 123 09/11/16 04:49 97 40 09/11/16 04:00 28 125/75 09/08/16 07:00 Mechanical Ventilator 09/07/16 17:57 15.00 Intake and Output 09/10/16 09/10/16 09/11/16 08:00 16:00 00:00 Intake Total 752 ml 639 ml Output Total 500 ml 400 ml Balance 252 ml 239 ml Result Diagram: 09/10/16 0450 09/10/16 0450 Other Results Microbiology Date/Time Procedure Status Source Growth 09/08/16 09:30 Gram Stain - Final Complete Sputum Endotracheal 09/08/16 09:30 Sputum Culture - Final Complete Staphylococcus Aureus Imaging Last [address] 09/07/16 1800 Signed Impressions: Service Date/Time: Wednesday, September 07, 2016 18:06 - CONCLUSION: Normal examination. Artem Madera MD Chest X-Ray 09/07/16 1800 Signed Impressions: Service Date/Time: Wednesday, September 07, 2016 17:49 - CONCLUSION: Subtle densities in the upper lobes. Otherwise unremarkable chest. Artem Madera MD ADDENDUM: See above. Artem Madera MD Cervical Spine CT 09/07/16 1800 Signed Impressions: Service Date/Time: Wednesday, September 07, 2016 18:06 - CONCLUSION: 1. No fracture or subluxation. 2. Scattered groundglass nodules throughout the upper lobes, nonspecific but can be seen with hypersensitivity pneumonitis. Artem Madera MD Objective Remarks GENERAL: Well-nourished, well-developed patient. Comatose SKIN: Warm and dry. HEAD: Normocephalic. Pupils are 3 mm bilaterally nonreactive today EYES: No scleral icterus. No injection or drainage. NECK: Supple, trachea midline. No JVD or lymphadenopathy. Contusion anterior neck from hanging, carotids palpable CARDIOVASCULAR: Tachycardic rhythm. No murmurs. RESPIRATORY: Breath sounds equal bilaterally. Basilar rhonchi and crackles GASTROINTESTINAL: Abdomen soft, non-tender, nondistended. MUSCULOSKELETAL: No cyanosis, or edema. BACK: Nontender without obvious deformity. No CVA tenderness. EXTREMITIES: No movement NEURO: Intubated off all sedation. Pupils are 3 mm nonreactive. No corneal reflex. Slight withdrawal x4 to central pain A/P Assessment and Plan NEURO: Severe anoxic brain injury Bilateral common carotid narrowing Attempted suicide by hanging Seizure - MRI shows evidence of diffuse anoxic brain injury. Poor prognosis - MRI with bilateral common carotid narrowing-vascular surgery consulted, no intervention. started aspirin 09/10 - EEG bilateral sharp activity continue Dilantin. Level therapeutic levels - s/p induced hypothermia. - Neurology Dr. Wong following - Toxicology negative CV: Shock Now resolved Status postcardiac arrest - IV to KVO - Levophed and Mehdi-Synephrine to keep MAP >65, now off all pressors - Flow track, CVP monitoring - Bedside echo with slightly reduced EF. Resp: Acute hypoxemic respiratory failure Pre-hospital Aspiration pneumonitis Acute lung injury - Intubated for airway protection, now with severe hypoxemic respiratory failure from pre hospital aspiration - PRVC, ventilator bundle - No weaning until neurologically improved - Patient has evidence of aspiration on admission as indicated by right lower lobe infiltrate - Continue Zosyn, vanc GI: - Tube feedings with Jevity, Pepcid, having BM Renal: - IV fluid as above, Benjamin catheter, monitor BUN/creatinine ID: Septic shock-resolved Aspiration pneumonia, prehospital - F/u blood urine and sputum cultures. Sputum with MSSA - Zosyn 4.5 g IV every 6 hours, vancomycin pharmacy dosing Endo: - Electrolyte replacement per protocol - Sliding-scale insulin if needed HEME: Leukopenia, resolved and now leukocytosis - Leukopenia most likely from developing sepsis - Monitor CBC CMP coags DVT GI prophylaxis - Subcutaneous heparin and Pepcid Lines: - Right femoral cooling catheter and right brachial arterial line placed by Dr. England-DC both. Placed L subclavian central line 09/10/16 Critical Care: The total critical care time was 35 minutes discontinuously. Time to perform other separately billable procedures was not included in the critical care time. Patient remains very critically ill. MRI shows evidence of anoxic brain injury. Prognosis remains poor for neurological recovery, but there is withdrawal x4 to central pain now. Lyndon Bhatt MD Sep 11, 2016 08:16
[2016-09-11] MEDS: DOCUSATE SODIUM 100 MG/10 ML UDC PO SCH ×2 (08:41→20:40)
[2016-09-11] MEDS: ASPIRIN 81 MG CHEW TAB CHEW SCH (08:41)
[2016-09-11] MEDS: ARTIFICIAL TEARS OPTH SOLN 15 ML BTL EACH EYE SCH ×2 (09:00→21:00)
[2016-09-11 09:54] LABS: AUTOMATED NEUTROPHIL # 13.7 TH/MM3 (1.8-7.7); BASOPHIL # 0.1 TH/MM3 (0-0.2); BASOPHIL % 0.5 % (0.0-2.0); EOSINOPHIL # 0.2 TH/MM3 (0-0.4); EOSINOPHIL % 1.1 % (0.0-4.0); HEMATOCRIT 30.2 % (35.0-46.0); LYMPH % 5.7 % (9.0-44.0); LYMPHOCYTE # 0.9 TH/MM3 (1.0-4.8); MEAN CELL VOLUME 84.7 FL (80.0-100.0); MEAN CORPUSCULAR HEMOGLOBIN 28.4 PG (27.0-34.0); MEAN CORPUSCULAR HGB CONC 33.5 % (32.0-36.0); MONO % 1.4 % (0.0-8.0); NEUT % 91.3 % (16.0-70.0); PLATELET COUNT 56 TH/MM3 (150-450); RED BLOOD COUNT 3.56 MIL/MM3 (4.00-5.30); RED CELL DISTRIBUTION WIDTH 15.3 % (11.6-17.2)
[2016-09-11 09:55] LABS: HEMO FLAGS AUTO DIFF
[2016-09-11 10:07] LABS: ALT (GPT) 67 U/L (9-42); ANION GAP 9 MEQ/L (5-15); AST (GOT) 133 U/L (16-38); BICARBONATE 23.5 MEQ/L (21.0-32.0); BLOOD UREA NITROGEN 17 MG/DL (7-18); CHLORIDE 114 MEQ/L (98-107); GLOMERULAR FILTRATION RATE 46 ML/MIN (>89); POTASSIUM 3.9 MEQ/L (3.5-5.1); SODIUM (NA) 146 MEQ/L (136-145)
[2016-09-11 10:14] LABS: ALKALINE PHOSPHATASE 55 U/L (45-117); TOTAL BILIRUBIN ADULT 0.6 MG/DL (0.2-1.0)
[2016-09-11 10:20] LABS: BANDS 10 % (0-6); NEUTROPHIL # MANUAL DIFF 13.1 TH/MM3 (1.8-7.7); PLATELET ESTIMATE SMEAR LOW (NORMAL); PLATELET MORPHOLOGY NORMAL (NORMAL); POLYS (SEG NEUTROPHILS) 77 % (16-70); SCAN/DIFF FINAL DIFF MANUAL; WBC DIFF SAMPLE 100
[2016-09-11] MEDS ORDERED: PHARMACY ORDERED LAB ONE (11:45)
[2016-09-11] MEDS: SODIUM CHLOR 0.9% 1000 ML INJ 1,000 ML IV SCH ×2 (12:00)
[2016-09-11] MEDS: PROPRANOLOL HCL 20 MG TAB PO SCH ×2 (13:28→20:40)
[2016-09-11] MEDS: PANTOPRAZOLE SODIUM 40 MG VIAL IVP SCH (20:40)
[2016-09-11] MEDS: LORazepam 2 MG/ML VIAL IV PRN (22:05)
[2016-09-11] MEDS: ARTIFICIAL TEARS OPTH OINT 3.5 APPLIC/3.5 GM TUBO EACH EYE PRN (22:05)
[2016-09-12] VITALS (18 sets, daily range): BP systolic 102–137; BP diastolic 64–100; PULSE 74–97; RESP 18–28; TEMP 96–100.1; O2SAT 95–100
[2016-09-12] MEDS: ARTIFICIAL TEARS OPTH OINT 3.5 APPLIC/3.5 GM TUBO EACH EYE PRN (01:00)
[2016-09-12] MEDS: CHLORHEXIDINE GLUCONATE 2 % 1 PACK (2 CLOTHS) TOP SCH (01:00)
[2016-09-12] MEDS: PIPERACIL-TAZO 4.5 GM PREMIX 100 ML IV SCH ×4 (01:02→21:29)
[2016-09-12] MEDS: LORazepam 2 MG/ML VIAL IV PRN ×5 (01:21→12:04)
[2016-09-12 03:48] LABS: AUTOMATED NEUTROPHIL # 14.2 TH/MM3 (1.8-7.7); BASOPHIL % 0.1 % (0.0-2.0); EOSINOPHIL # 0.2 TH/MM3 (0-0.4); HEMATOCRIT 34.4 % (35.0-46.0); LYMPH % 8.6 % (9.0-44.0); LYMPHOCYTE # 1.4 TH/MM3 (1.0-4.8); MEAN CELL VOLUME 84.5 FL (80.0-100.0); MEAN CORPUSCULAR HEMOGLOBIN 28.4 PG (27.0-34.0); MEAN CORPUSCULAR HGB CONC 33.6 % (32.0-36.0); MONO % 3.6 % (0.0-8.0); NEUT % 86.7 % (16.0-70.0); PLATELET COUNT 63 TH/MM3 (150-450); RED BLOOD COUNT 4.07 MIL/MM3 (4.00-5.30); RED CELL DISTRIBUTION WIDTH 15.5 % (11.6-17.2); WHITE BLOOD COUNT 16.3 TH/MM3 (4.0-11.0)
[2016-09-12 03:49] LABS: HEMO FLAGS AUTO DIFF
[2016-09-12 04:09] LABS: ANION GAP 7 MEQ/L (5-15); AST (GOT) 125 U/L (16-38); BICARBONATE 25.5 MEQ/L (21.0-32.0); BLOOD UREA NITROGEN 16 MG/DL (7-18); CHLORIDE 115 MEQ/L (98-107); GLOMERULAR FILTRATION RATE 60 ML/MIN (>89); MAGNESIUM 1.9 MG/DL (1.5-2.5); POTASSIUM 4.2 MEQ/L (3.5-5.1); SODIUM (NA) 147 MEQ/L (136-145)
[2016-09-12 04:12] LABS: ALKALINE PHOSPHATASE 83 U/L (45-117); ALT (GPT) 78 U/L (9-42); TOTAL BILIRUBIN ADULT 0.4 MG/DL (0.2-1.0)
[2016-09-12 04:14] LABS: BANDS 13 % (0-6); EOSINOPHILS 1 % (0-4); PLATELET ESTIMATE SMEAR LOW (NORMAL); PLATELET MORPHOLOGY NORMAL (NORMAL); POLYS (SEG NEUTROPHILS) 73 % (16-70); SCAN/DIFF AUTO DIFF CONFIRMED; WBC DIFF SAMPLE 100
[2016-09-12] MEDS: FOSPHENYTOIN SODIUM 100 MG PE/2 ML VIAL IV SCH ×3 (04:44→21:30)
[2016-09-12] MEDS: PROPRANOLOL HCL 20 MG TAB PO SCH ×3 (04:44→15:35)
--- NOTE | 2016-09-12 06:24 | RADRPT ---
EXAM DATE/TIME: 09/12/2016 05:08 [facility] COMPARISON: CHEST SINGLE AP, September 10, 2016, 10:15. INDICATIONS : Shortness of breath. MEDICAL HISTORY : Non-responsive SURGICAL HISTORY : Non-responsive ENCOUNTER: Subsequent ACUITY: 4 - 6 days PAIN SCORE: Non-responsive. LOCATION: Bilateral chest FINDINGS: A single view of the chest demonstrates the endotracheal tube, nasogastric tube and left clavian cent ral line are all good position. Diffuse patchy airspace disease throughout the lungs. Persistent perihilar vascular Congestion. No pneumothorax. The cardiomediastinal contours are unrema rkable. Osseous structures are intact. CONCLUSION: Some areas of parenchymal consolidation throughout the lungs particularly the lung bases. Tubes and c atheter in good position. No pneumothorax. Jarred Kerr MD on September 12, 2016 at 6:21 Board Certified Radiologist. This report was verified electronically.
[2016-09-12] MEDS: SODIUM CHLOR 0.9% 1000 ML INJ 1,000 ML IV SCH ×2 (08:00→18:00)
[2016-09-12] MEDS: ASPIRIN 81 MG CHEW TAB CHEW SCH (08:05)
[2016-09-12] MEDS: ARTIFICIAL TEARS OPTH SOLN 15 ML BTL EACH EYE SCH ×2 (08:05→21:30)
[2016-09-12] MEDS: DOCUSATE SODIUM 100 MG/10 ML UDC PO SCH ×2 (08:05→21:29)
[2016-09-12] MEDS: MAGNESIUM CITRATE SOLN 300 ML BTL NG ONE ×2 (08:05→09:00)
[2016-09-12] MEDS: PROPOFOL 1000 MG/100 ML IV SCH ×3 (08:41→23:06)
--- NOTE | 2016-09-12 08:53 | HHI.CCPN ---
Subjective Remarks/Hospital Course 19 years old was brought in as a trauma alert. He has had to hanged herself and was found by her roommate. Unknown time of hanging. When fire department arrived patient was in asystole. CPR was started and one round of meds were given as per ACLS protocol. There was return of spontaneous circulation soon after that. Patient was brought in getting breaths by BV. She had a blood pressure and half way to arriving to the ER she started having some spontaneous respirations. She continued to be a GCS 3 when she arrived. She is admitted to critical care unit and therapeutic hypothermia protocol is initiated. SUBJ 09/08/16: Patient achieving target temperature but developing severe shock. Levothroid had been increased to 30 mcg/m Mehdi-Synephrine added. Additional fluid boluses ordered currently on bicarbonate infusion additional one amp of bicarbonate given. Chest x-ray shows severe aspiration pneumonitis predominantly right lower lobe infiltrates. Zosyn 4.5 GM IV q8 started, give single dose of vanc 09/09/16: Patient is in the rewarming phase of hypothermia protocol. Once sedation was lightened and taken off the Nimbex, patient started developing tonic-clonic generalized seizure like activity. Bolused with a total of 6 mg Ativan in divided doses and restarted on Versed and propofol infusions. Loaded with Cerebyx 1 g and scheduled at 100 mg every 8 hours. Stat EEG pending. Neurology following 09/10/16: Remains on high dose of vasopressors, MRI brain shows evidence of anoxic brain injury. MRA neck bilateral common carotid narrowing. Start on aspirin get vascular surgery consult. No further seizure-like episodes noted. Pupils are equal bilaterally with slight withdrawal of right lower extremity to central pain. 09/11/16: Currently remains off all sedation in process. No noticeable improvement in neuro status, slight withdrawal x4. Aspirin started for bilateral common carotid narrowing-vascular surgery consult appreciated. Continue Cerebyx EEG sharp activity on eeg. MRI indicates diffuse anoxic brain injury with poor prognosis. EEG bihemispheric slowing and intermittent right central posterior sharp discharges which appear to be epileptiform. Dilantin level is therapeutic 09/12/16: Overnight had episodes myoclonus versus seizures. Neuro exam remains poor. No significant improvement. Low grade fever. Remains tachypneic on the ventilator. Restart propofol for vent synchrony Objective Vital Signs Date Time Temp Pulse Resp B/P Pulse Ox O2 Delivery O2 Flow Rate FiO2 09/12/16 06:00 97 09/12/16 04:54 100 40 09/12/16 04:00 99.3 09/12/16 04:00 22 127/88 09/08/16 07:00 Mechanical Ventilator Intake and Output 09/11/16 09/11/16 09/12/16 08:00 16:00 00:00 Intake Total 726 ml 1274 ml 1093 ml Output Total 710.0 ml 925 ml 550 ml Balance 16.0 ml 349 ml 543 ml Result Diagram: 09/12/16 0330 09/12/16 0330 Imaging Last [address] 09/07/16 1800 Signed Impressions: Service Date/Time: Wednesday, September 07, 2016 18:06 - CONCLUSION: Normal examination. Artem Madera MD Chest X-Ray 09/07/16 1800 Signed Impressions: Service Date/Time: Wednesday, September 07, 2016 17:49 - CONCLUSION: Subtle densities in the upper lobes. Otherwise unremarkable chest. Artem Madera MD ADDENDUM: See above. Artem Madera MD Cervical Spine CT 09/07/16 1800 Signed Impressions: Service Date/Time: Wednesday, September 07, 2016 18:06 - CONCLUSION: 1. No fracture or subluxation. 2. Scattered groundglass nodules throughout the upper lobes, nonspecific but can be seen with hypersensitivity pneumonitis. Artem Madera MD Objective Remarks GENERAL: Well-nourished, well-developed patient. Comatose SKIN: Warm and dry. HEAD: Normocephalic. Pupils are 5 mm bilaterally nonreactive today EYES: No scleral icterus. No injection or drainage. NECK: Supple, trachea midline. No JVD or lymphadenopathy. Contusion anterior neck from hanging, carotids palpable CARDIOVASCULAR: Tachycardic rhythm. No murmurs. RESPIRATORY: Breath sounds equal bilaterally, tachypneic on the ventilator. Basilar rhonchi and crackles GASTROINTESTINAL: Abdomen soft, non-tender, nondistended. MUSCULOSKELETAL: No cyanosis, or edema. BACK: Nontender without obvious deformity. EXTREMITIES: No movement NEURO: Intubated off all sedation. Pupils are 5 mm nonreactive. No corneal reflex. Extensive post-bilateral upper extremity, slight withdrawal lower extremity A/P Assessment and Plan NEURO: Severe anoxic brain injury Bilateral common carotid narrowing Attempted suicide by hanging Seizure - MRI shows evidence of diffuse anoxic brain injury. Poor prognosis - MRI with bilateral common carotid narrowing-vascular surgery consulted, no intervention. started aspirin 09/10 - CT head to evaluate cerebral edema - EEG bilateral sharp activity continue Dilantin. Level therapeutic levels - s/p induced hypothermia. - Neurology Dr. Wong following - Toxicology negative CV: Shock resolved Status postcardiac arrest - IV to KVO - Off all pressors - Flow track, CVP monitoring - Bedside echo with slightly reduced EF. Resp: Acute hypoxemic respiratory failure Pre-hospital Aspiration pneumonitis Acute lung injury - Intubated for airway protection, now with severe hypoxemic respiratory failure from pre hospital aspiration - PRVC, ventilator bundle - No weaning until neurologically improved. If family wants to continue aggressive care, recommend early trach - Patient has evidence of aspiration on admission as indicated by right lower lobe infiltrate - Continue Zosyn, vanc GI: Transaminitis most likely from shock - Tube feedings with Jevity, Pepcid, No BM - Give magnesium citrate today - Ultrasound ordered for elevated liver enzymes, hepatitis panel Renal: Acute kidney injury Fluid overload - IV fluid as above, Benjamin catheter, monitor BUN/creatinine - IV Lasix 20 mg 1 as the chest x-ray shows pulmonary edema ID: Septic shock-resolved Aspiration pneumonia, prehospital - F/u blood urine and sputum cultures. Sputum with MSSA - Zosyn 4.5 g IV every 6 hours, vancomycin pharmacy dosing Endo: - Electrolyte replacement per protocol - Sliding-scale insulin if needed HEME: Leukopenia, resolved and now leukocytosis - Leukopenia most likely from developing sepsis - Monitor CBC CMP coags DVT GI prophylaxis - Subcutaneous heparin once thrombocytopenia resolves and Pepcid Lines: - Right femoral cooling catheter and right brachial arterial line placed by Dr. England-DC both. Placed L subclavian central line 09/10/16 Critical Care: The total critical care time was 35 minutes discontinuously. Time to perform other separately billable procedures was not included in the critical care time. Patient remains very critically ill. MRI shows evidence of anoxic brain injury. Prognosis remains poor for neurological recovery, recommend early trach if family desires continued care. Lyndon Bhatt MD Sep 12, 2016 08:53
--- NOTE | 2016-09-12 08:59 | MG ---
cc: VANI SHELTON MD Lab No: [id number] Date: 09/11/2016 Age: Sex: F Race: 1995 A 20-year-old with history status post hanging with nylon rope, asystole. 1-3 Hz delta activity with 4-5 Hz theta intrusion occurring, 20-50 microvolts. Electrical artifact in the frontal channels. Limited driving with photic stimulation. Some EEG variability reactivity with tactile stimuli. Bursts of periodic frontal sharp waves occurring around epoch 118 for a few seconds. Single lead EKG showing what appears to be sinus tachycardia. INTERPRETATION Moderate to severe encephalopathy with preservation of cerebral rhythms, the absence of epileptic activity. Clinical correlation. Vani Shelton MD MG/TLL /7:59 AM /8:47 AM
[2016-09-12] MEDS ORDERED: FUROSEMIDE 20 MG/2 ML VIAL IV PUSH ONE (09:30)
--- NOTE | 2016-09-12 10:18 | RADRPT ---
EXAM DATE/TIME: 09/12/2016 09:29 [facility] COMPARISON: CT BRAIN W/O CONTRAST, September 07, 2016, 18:06. INDICATIONS : Possible seizure today. RADIATION DOSE: 55.40 CTDIvol (mGy) MEDICAL HISTORY : Non-responsive. SURGICAL HISTORY : Non-responsive. ENCOUNTER: Subsequent ACUITY: 1 day PAIN SCALE: Non-responsive LOCATION: Bilateral head TECHNIQUE: Multiple contiguous axial images were obtained of the head. Using automated exposure control and adj ustment of the mA and/or kV according to patient size, radiation dose was kept as low as reasonably a chievable to obtain optimal diagnostic quality images. DICOM format image data is available electro nically for review and comparison. FINDINGS: There is minimal loss of lemos-white matter definition suggesting increased intracranial pressure. Th ere is no clinical hemorrhage, acute infarction or mass lesion. There are no extra-axial fluid colle ctions appreciated. The posterior fossa is unremarkable. CONCLUSION: Mild loss of lemos matter definition that can be seen with increasing intracranial pressure. Ricki Cavazos MD FACR on September 12, 2016 at 10:15 Board Certified Radiologist. This report was verified electronically.
[2016-09-12] MEDS: VANCOMYCIN 1,000 MG/NS 250 ML IV SCH ×4 (12:04→21:29)
--- NOTE | 2016-09-12 12:38 | PD.OP ---
Operative Report Date of Surgery: Sep 12, 2016 Preoperative Diagnosis: Diffuse cerebral edema secondary to cerebral anoxic injury Postoperative Diagnosis: Same Procedure: The procedure was performed at the bedside. Patient is currently intubated and sedated. The right coronal region was shaved prepped and draped in usual sterile manner. Skin was infiltrated with 1% lidocaine with epinephrine and stab wound was created with a scalpel. Twist drill craniotomy was performed with handheld drill. The dura was opened with a spinal needle and [place] bolt was placed into the skull. ICP monitor was zeroed and then placed into the right frontal region with opening pressure of 15 mmHg. There was an cleansed with Betadine and dressed with dry gauze dressing. There were no complications. Blood loss was minimal and the patient tolerated the procedure without difficulty. Anesthesia: Local Surgeon: Ham Davenport Counter Cutter(s): none Operation and Findings: Opening ICP 15 mmHg. Ham Davenport MD Sep 12, 2016 12:38
--- NOTE | 2016-09-12 12:48 | MB ---
cc: VINCE CORDOBA M.D.,SINOJ DATE OF CONSULTATION: 09/12/2016. REASON FOR CONSULTATION: Intracranial pressure monitor placement. REQUESTING PHYSICIAN: Dr. Bhatt. HISTORY OF PRESENT ILLNESS: This is an 19-year-old female who was admitted after she was found hanging at her home by her roommate. Apparent self-inflicted injury. At the time of admission to [facility], the patient's Carol coma score was 3 with nonreactive pupils and no response to pain. She was admitted on 09/07/2016 and over the past several days has began to exhibit some return of brain stem function with now reactive pupils and decerebrate posturing. CT scan shows diffuse supratentorial edema, although the patient does have patent basal cisterns. No midline shift and no parenchymal hemorrhages. Because of the minor improvement in the patient's neurological examination, the family continues to hold out hope for recovery and has requested aggressive treatment. Dr. Bhatt has asked me to place an intracranial pressure monitor. PAST MEDICAL HISTORY: Unremarkable. REVIEW OF SYSTEMS: A review of systems is unobtainable. SOCIAL HISTORY: Unobtainable. EXAMINATION: GENERAL: This a well-developed, well-nourished appearing female intubated. HEAD, EYES, EARS, NOSE, THROAT: Head is atraumatic and normocephalic. Pupils are 3 mm bilaterally and reactive. She has midline gaze. Corneal response is negative. There is questionable positive dolls sign. No cough or gag reflex on manipulation of ET tube and suctioning. The patient is decerebrate weakly to painful stimulation. ASSESSMENT: An 19-year-old status post self-inflicted hanging with cerebral anoxic injury. Only minimal brain stem functioning at this time. CT scan showing diffuse supratentorial edema. PLAN: ICP monitor will be placed per Dr. Bhatt's request. MD PAGE Raines/ACACIA /12:30 PM /12:39 PM
[2016-09-12 13:30] LABS: BLOOD GAS BASE EXCESS 1.3 mmol/L (-2-2); BLOOD GAS HCO3 25 mmol/L (22-26); BLOOD GAS METHEMOGLOBIN 0.7 % (0-2); BLOOD GAS O2 HGB SATURATION 97 % (90-100); BLOOD GAS OXYGEN CONTENT 15.8 Vol % (12.0-20.0); BLOOD GAS PCO2 36 mmHg (38-42); BLOOD GAS PO2 123 mmHg (61-120); BLOOD GAS TOTAL HGB 11.4 G/DL (12.0-16.0); CRITICAL VALUE NO; OXYGEN DEVICE VENTILATOR; TEMP CORR TO 98.6
[2016-09-12 13:31] LABS: DRAW SITE ART LINE; FIO2 40 %; STAT NO; VENT SETTINGS SEE COMMENTS
[2016-09-12] MEDS ORDERED: MANNITOL 12.5 GM/50 ML VIAL IV SCH (14:00)
[2016-09-12 15:29] LABS: HEPARIN AB OD 0.331 O.D. (0.000-0.300)
[2016-09-12 15:30] LABS: HEPARIN INDUCED PLATELET AB Weak Positive (NEGATIVE)
[2016-09-12] MEDS: SODIUM CHLORIDE 23.4% INJ 188 MEQ in SODIUM CHLOR 0.9% 1000 ML INJ 1,000 ML IV SCH (15:59)
[2016-09-12 17:24] LABS: BASOPHIL % 0.2 % (0.0-2.0); EOSINOPHIL # 0.3 TH/MM3 (0-0.4); EOSINOPHIL % 2.5 % (0.0-4.0); HEMATOCRIT 34.4 % (35.0-46.0); LYMPH % 13.4 % (9.0-44.0); LYMPHOCYTE # 1.4 TH/MM3 (1.0-4.8); MEAN CELL VOLUME 84.2 FL (80.0-100.0); MEAN CORPUSCULAR HEMOGLOBIN 28.2 PG (27.0-34.0); MEAN CORPUSCULAR HGB CONC 33.4 % (32.0-36.0); MONO % 6.3 % (0.0-8.0); NEUT % 77.6 % (16.0-70.0); PLATELET COUNT 70 TH/MM3 (150-450); RED BLOOD COUNT 4.08 MIL/MM3 (4.00-5.30); RED CELL DISTRIBUTION WIDTH 15.3 % (11.6-17.2); WHITE BLOOD COUNT 10.3 TH/MM3 (4.0-11.0)
[2016-09-12 17:27] LABS: HEMO FLAGS AUTO DIFF
[2016-09-12 17:30] LABS: INTERNATIONAL NORMALIZED RATIO 1.1 RATIO; PROTHROMBIN TIME - PATIENT 11.9 SEC (9.8-11.6)
--- NOTE | 2016-09-12 17:30 | RADRPT ---
EXAM DATE/TIME: 09/12/2016 16:15 [facility] COMPARISON: No previous studies available for comparison. INDICATIONS : Abnormal lab values. MEDICAL HISTORY : Unable to assess. SURGICAL HISTORY : Unable to assess. ENCOUNTER: Initial ACUITY: 1 day PAIN SCORE: Nonresponsive. LOCATION: Bilateral upper quadrant MEASUREMENTS: LIVER: 16.5 cm length COMMON DUCT: 2 mm RIGHT KIDNEY: 10.4 x 6.2 x 5.0 cm SPLEEN: 11.7 cm length FINDINGS: There is evidence of a large non-occlusive inferior vena cava thrombus. The liver is mildly enlarged . No focal hepatic mass is noted. No biliary ductal dilatation is noted. There is hepatopetal flow within the portal vein. The common bile duct measures 2 mm and is normal in caliber. The wall of t he gallbladder is thickened. Sludge is noted layering in the gallbladder lumen. Minimal pericholecy stic fluid is noted. If there is clinical concern for acute cholecystitis a hepatobiliary scan may b e helpful to confirm cystic obstruction. Ascites is noted within the abdomen and pelvis. Bilateral pleural effusions are noted. The pancreas is normal. The right kidney is echogenic but demonstrates no hydronephrosis or solid mass. CONCLUSION: 1. 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 2. Pericholecystic fluid and gallbladder wall thickening raising the possibility of cholecystitis. A hepatobiliary scan may be helpful to confirm cystic duct obstruction if clinically indicated. 3. Gallbladder sludge. 4. Ascites. 5. Bilateral pleural effusions. 6. Mild hepatomegaly. Tray Santiago MD on September 12, 2016 at 17:04 Board Certified Radiologist. This report was verified electronically.
[2016-09-12] MEDS ORDERED: TERBUTALINE INJ 1 MG/ML AMP SQ PRN (18:00)
[2016-09-12 18:01] LABS: PLATELET ESTIMATE SMEAR LOW (NORMAL); PLATELET MORPHOLOGY NORMAL (NORMAL); SCAN/DIFF AUTO DIFF CONFIRMED
--- NOTE | 2016-09-12 18:24 | MB ---
cc: APOLLO JOSEPH DATE OF CONSULTATION 09/12/2016 REASON FOR CONSULTATION A 20-year-old female with a large clot in the inferior vena cava. PATIENT PROFILE The patient is unable to give a history. She was brought into the hospital as a trauma alert. The patient had hung herself with a nylon rope from a bar on the ceiling and was found by her roommate. When she was found she was in asystole. She underwent CPR and is now hospitalized and intubated. She has suffered severe cognitive damage. She has an intracranial pressure monitor. Her most recent CT of the brain on 09/12/2016 shows mild loss of lemos matter definition that can be seen with increasing intracranial hemorrhage. She had an electroencephalogram on 09/12 showing moderate to severe encephalopathy with preservation of cerebral rhythms. She had abnormal liver function tests. On 09/12/2016, AST 125, ALT 78. Due to the abnormal liver function test she underwent an ultrasound of the liver. She was found to have a large clot in the inferior vena cava. She also has thrombocytopenia. Hemoglobin is 11.6, white count is 16,000, platelets of 63,000. Yesterday platelets were 56,000. She underwent a cooling of her body temperature with hypothermia. Her prognosis is felt to be very poor for recovery. Due to the presence of the clot in the inferior vena cava I am asked to see her. PAST MEDICAL AND SURGICAL HISTORY Are unknown to me. MEDICATIONS Pertinent medicines: 1. Vancomycin. 2. Protonix. 3. Piperacillin. 4. Mannitol. 5. Cerebyx. 6. Ativan as needed for seizures. ALLERGIES NO KNOWN ALLERGIES. FAMILY HISTORY Unobtainable. PHYSICAL EXAMINATION GENERAL: The patient is supine in bed. She is intubated. She has an intracranial pressure monitoring device. There is no spontaneous movement or withdrawal to pain HEART: Regular rhythm. LUNGS: Clear. ABDOMEN: Soft. EXTREMITIES: Trace edema. When I squeeze her hand there was no withdrawal. 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 Anticoagulation would be problematic. She has thrombocytopenia and most importantly she has a significant risk of intracerebral hemorrhage due to the low platelets and increased intracranial pressure. I believe that the safest approach would be placement of an inferior vena cava umbrella above the clot. Unfortunately no matter what is done it appears the prognosis is poor. She would poorly tolerate any bleeding into the brain especially given the pervasive damage that has already occurred. Therefore, in summary I recommend an IVC filter and no anticoagulation presently. MD MAGAN Alfredo/LINO /5:36 PM /5:51 PM MTDMorgan
--- NOTE | 2016-09-12 20:57 | PD.RAD ---
Post Procedure Progress Note Pre Procedure Diagnosis: (1) Inferior vena caval thrombosis Post Procedure Diagnosis: (1) Inferior vena caval thrombosis Procedure Date: Sep 12, 2016 Supervising Radiologist: Jose Armando Jackson JR Proceduralist/Assist: Herman Singh, RT(R), Elke Lynch RT(R)() Anesthesia: Other Plan of Activity Patient to Unit: Critical Care Patient Condition: Poor See PACS Report for procedural detail/treatment Vascular-Venous Procedure Procedure 1 Procedure(s): Retrievable IVC Filter, Venogram Access Access Site(s): Right Jugular Vein Findings: Caval thrombus extends to the confluence of the IVC and an accessory right hepatic vein. Placed top of filter at this confluence as far inferiorly as possible but to still cover the thrombus. Plan This is a retrievable filter and can be removed up to 1 year from today. Jr. Manuel,Jose Armando Wood MD Sep 12, 2016 20:56
[2016-09-12] MEDS ORDERED: IOHEXOL 350 MG/ML 100 ML BTL (for RAD DIAG) IV ONE (21:02)
[2016-09-12] MEDS: LACTULOSE SYRUP 20 GM/30 ML CUP PO SCH (21:29)
[2016-09-12] MEDS: PANTOPRAZOLE SODIUM 40 MG VIAL IVP SCH (21:29)
[2016-09-12] MEDS: MANNITOL 12.5 GM/50 ML VIAL IV SCH (23:06)
[2016-09-13] VITALS (13 sets, daily range): BP systolic 100–137; BP diastolic 52–78; PULSE 80–100; RESP 18–25; TEMP 97.4–99; O2SAT 97–100
[2016-09-13] MEDS: LORazepam 2 MG/ML VIAL IV PRN ×3 (02:39→20:13)
[2016-09-13] MEDS: SODIUM CHLOR 0.9% 1000 ML INJ 1,000 ML IV SCH ×3 (02:40→23:30)
[2016-09-13] MEDS: PIPERACIL-TAZO 4.5 GM PREMIX 100 ML IV SCH ×4 (02:40→20:13)
[2016-09-13] MEDS: CHLORHEXIDINE GLUCONATE 2 % 1 PACK (2 CLOTHS) TOP SCH (02:40)
[2016-09-13] MEDS: FOSPHENYTOIN SODIUM 100 MG PE/2 ML VIAL IV SCH ×3 (05:36→20:13)
--- NOTE | 2016-09-13 05:44 | RADRPT ---
EXAM DATE/TIME: 09/13/2016 04:49 [facility] COMPARISON: CHEST SINGLE AP, September 12, 2016, 5:08. INDICATIONS : Shortness of breath. MEDICAL HISTORY : None. SURGICAL HISTORY : None. ENCOUNTER: Subsequent ACUITY: 4 - 6 days PAIN SCORE: 0/10 LOCATION: Bilateral chest FINDINGS: A single AP semierect view the chest was obtained and again demonstrates an endotracheal tube in plac e with the tip projected 3 cm above the serafin. A nasogastric tube is seen coursing through the esoph selene into the stomach. There is overlying artifact and oxygen tubing projected over the right suprahi lar region obscuring visualization. There are multiple overlying electrocardiogram leads as well. The heart size is within normal limits. There is hazy infiltrate again noted in both lungs without signi ficant change. There is no distinct effusion. An inferior vena caval filter is now noted. CONCLUSION: 1. Hazy opacity in both lungs without significant change. This may represent pulmonary edema which ma y be noncardiogenic. 2. Artifact projected over the right suprahilar region limiting visualization. Seth Breen MD on September 13, 2016 at 5:41 Board Certified Radiologist. This report was verified electronically.
[2016-09-13 05:46] LABS: BASOPHIL % 0.3 % (0.0-2.0); EOSINOPHIL # 0.4 TH/MM3 (0-0.4); EOSINOPHIL % 3.8 % (0.0-4.0); HEMATOCRIT 32.6 % (35.0-46.0); LYMPH % 11.1 % (9.0-44.0); MEAN CELL VOLUME 84.3 FL (80.0-100.0); MEAN CORPUSCULAR HEMOGLOBIN 28.3 PG (27.0-34.0); MEAN CORPUSCULAR HGB CONC 33.5 % (32.0-36.0); MONO % 9.8 % (0.0-8.0); PLATELET COUNT 69 TH/MM3 (150-450); RED BLOOD COUNT 3.86 MIL/MM3 (4.00-5.30); WHITE BLOOD COUNT 9.4 TH/MM3 (4.0-11.0)
[2016-09-13 06:04] LABS: HEMO FLAGS AUTO DIFF
[2016-09-13 06:11] LABS: ALKALINE PHOSPHATASE 70 U/L (45-117); ALT (GPT) 49 U/L (9-42); ANION GAP 9 MEQ/L (5-15); AST (GOT) 69 U/L (16-38); BICARBONATE 25.3 MEQ/L (21.0-32.0); BLOOD UREA NITROGEN 16 MG/DL (7-18); CHLORIDE 115 MEQ/L (98-107); GLOMERULAR FILTRATION RATE 69 ML/MIN (>89); MAGNESIUM 1.6 MG/DL (1.5-2.5); SODIUM (NA) 149 MEQ/L (136-145); TOTAL BILIRUBIN ADULT 0.5 MG/DL (0.2-1.0)
[2016-09-13 06:17] LABS: POTASSIUM 2.9 MEQ/L (3.5-5.1)
[2016-09-13] MEDS: MANNITOL 12.5 GM/50 ML VIAL IV SCH ×3 (06:23→23:00)
[2016-09-13] MEDS: PROPOFOL 1000 MG/100 ML IV SCH ×2 (06:50→16:05)
[2016-09-13] MEDS: POTASSIUM CHLOR 40 MEQ PREMIX 100 ML IV PRN ×2 (06:50→09:02)
[2016-09-13] MEDS: NOREPINEPHRINE-DEXTROSE DRIP 250 ML IV SCH (06:51)
[2016-09-13 06:57] LABS: BANDS 16 % (0-6); CORRECTED NUCLEATED RBC 1 /100 WBC (0-0); EOSINOPHILS 4 % (0-4); NEUTROPHIL # MANUAL DIFF 7.9 TH/MM3 (1.8-7.7); PLATELET ESTIMATE SMEAR LOW (NORMAL); PLATELET MORPHOLOGY NORMAL (NORMAL); POLYS (SEG NEUTROPHILS) 68 % (16-70); WBC DIFF SAMPLE 100
[2016-09-13 06:58] LABS: SCAN/DIFF FINAL DIFF MANUAL
[2016-09-13] MEDS: MAGNESIUM SULFATE INJ 2 GM in SODIUM CHLORIDE 0.9% INJ 96 ML IV PRN (07:11)
--- NOTE | 2016-09-13 08:27 | RADRPT ---
EXAM DATE/TIME: 09/12/2016 20:00 [facility] COMPARISON: No previous studies available for comparison. INDICATIONS : Patient has caval thrombosis which is nonocclusive. Unable to be anticoagulated. Dr. Bhatt requests IV C filter. Patient is in need of a retrievable IVC filter placement due to DVT. MEDICAL HISTORY : History of attempted suicide by hanging presents as trauma, mechanically ventilated, anoxic brain inj ury, acute respiratory failure, cardiac arrest, aspiration pneumonia, septic shock. SURGICAL HISTORY : N/A ENCOUNTER: Initial ACUITY: 4 - 6 days PAIN SCORE: 0/10 LOCATION: Patient is vented. FLUORO TIME: 2.9 minutes IMAGE SERIES: 3 ACCESS SITE: Right Internal jugular vein CONTRAST: 1.) 30 cc Omnipaque (iohexol) 350 DEVICE(S): 1.) Inferior vena cava [place] filter PROCEDURE : 1. Ultrasound-guided venipuncture. 2. Inferior venacavogram. 3. Inferior vena cava filter placement. 4. Continuous EKG and oximetry monitoring. The risks, benefits and alternatives to the procedure were explained and verbal and written consent w as obtained from the family via telephone. The site was prepped in sterile fashion. Full sterile te chnique was used, including cap, mask, sterile gloves and gown and a large sterile sheet. Hand hygie ne and 2% chlorhexidine and/or betadine/alcohol prep was utilized per protocol for cutaneous antiseps is. The skin and subcutaneous tissues were infiltrated with local anesthetic solution. With ultrasound and fluoroscopic guidance the right internal jugular vein was punctured and a vascula r sheath was placed. Inferior venacavogram was performed which demonstrates nonocclusive thrombus thr oughout the inferior vena cava extending from a right accessory hepatic vein down to the infrarenal I VC. I am unable to place an infrarenal IVC filter bilaterally there is sufficient room within the IVC below the main hepatic veins although I will have to cross the accessory hepatic vein. The prescribe d filter was deployed in the suprarenal inferior vena cava. Following deployment the filter was ident ified in good position. The patient tolerated the procedure well and there were no complications. The patient was sent to pos t anesthesia recovery in stable condition. CONCLUSION: Caval thrombosis extending from the suprarenal IVC to the infrarenal IVC. This is nonocclusive. A ret rievable IVC filter was deployed below the main hepatic veins but it was necessary to cross an access ory right hepatic vein. Jose Armando Jackson Jr., MD on September 13, 2016 at 8:18 Board Certified Radiologist. This report was verified electronically.
[2016-09-13] MEDS: MAGNESIUM CITRATE SOLN 300 ML BTL PO ONE ×2 (08:30→10:08)
--- NOTE | 2016-09-13 08:41 | HHI.CCPN ---
Subjective Remarks/Hospital Course 19 years old was brought in as a trauma alert. He has had to hanged herself and was found by her roommate. Unknown time of hanging. When fire department arrived patient was in asystole. CPR was started and one round of meds were given as per ACLS protocol. There was return of spontaneous circulation soon after that. Patient was brought in getting breaths by BV. She had a blood pressure and half way to arriving to the ER she started having some spontaneous respirations. She continued to be a GCS 3 when she arrived. She is admitted to critical care unit and therapeutic hypothermia protocol is initiated. SUBJ 09/08/16: Patient achieving target temperature but developing severe shock. Levothroid had been increased to 30 mcg/m Mehdi-Synephrine added. Additional fluid boluses ordered currently on bicarbonate infusion additional one amp of bicarbonate given. Chest x-ray shows severe aspiration pneumonitis predominantly right lower lobe infiltrates. Zosyn 4.5 GM IV q8 started, give single dose of vanc 09/09/16: Patient is in the rewarming phase of hypothermia protocol. Once sedation was lightened and taken off the Nimbex, patient started developing tonic-clonic generalized seizure like activity. Bolused with a total of 6 mg Ativan in divided doses and restarted on Versed and propofol infusions. Loaded with Cerebyx 1 g and scheduled at 100 mg every 8 hours. Stat EEG pending. Neurology following 09/10/16: Remains on high dose of vasopressors, MRI brain shows evidence of anoxic brain injury. MRA neck bilateral common carotid narrowing. Start on aspirin get vascular surgery consult. No further seizure-like episodes noted. Pupils are equal bilaterally with slight withdrawal of right lower extremity to central pain. 09/11/16: Currently remains off all sedation in process. No noticeable improvement in neuro status, slight withdrawal x4. Aspirin started for bilateral common carotid narrowing-vascular surgery consult appreciated. Continue Cerebyx EEG sharp activity on eeg. MRI indicates diffuse anoxic brain injury with poor prognosis. EEG bihemispheric slowing and intermittent right central posterior sharp discharges which appear to be epileptiform. Dilantin level is therapeutic 09/12/16: Overnight had episodes myoclonus versus seizures. Neuro exam remains poor. No significant improvement. Low grade fever. Remains tachypneic on the ventilator. Restart propofol for vent synchrony 09/13/16: Neuro exam remains unchanged overnight. ICP monitor placed 09/12 for cerebral edema- ICP controlled with hyperosmolar therapy. 2 episodes of seizures vs myoclonus reported. Repeat EEG today. IVC filter placed 09/12/16 evening for large IVC thrombus. Unable to anticoagulate due to thrombocytopenia , cerebral edema-high risk of bleeding Objective Vital Signs Date Time Temp Pulse Resp B/P Pulse Ox O2 Delivery O2 Flow Rate FiO2 09/13/16 04:13 99 40 09/13/16 04:00 98.4 86 18 104/60 Intake and Output 09/12/16 09/12/16 09/12/16 07:59 15:59 23:59 Intake Total 1126 ml 1216 ml 1049 ml Output Total 1000 ml 2700 ml 1350 ml Balance 126 ml -1484 ml -301 ml Result Diagram: 09/13/16 0520 09/13/16 0520 Other Results Microbiology Date/Time Procedure Status Source Growth 09/10/16 18:33 Urine Culture - Final Complete Urine Clean Catch <10,000 CFU/ML YEAST Laboratory Tests Test 09/12/16 13:23 Blood Gas Puncture Site ART LINE Blood Gas Patient Temperature 98.6 Blood Gas HCO3 25 mmol/L (22-26) Blood Gas Base Excess 1.3 mmol/L (-2-2) Blood Gas Oxygen Saturation 97 % (90-100) Arterial Blood pH 7.45 (7.380-7.420) Arterial Blood Partial 36 mmHg (38-42) Pressure CO2 Arterial Blood Partial 123 mmHg Pressure O2 (61-120) Arterial Blood Oxygen Content 15.8 Vol % (12.0-20.0) Arterial Blood 1.0 % (0-4) Carboxyhemoglobin Arterial Blood Methemoglobin 0.7 % (0-2) Blood Gas Hemoglobin 11.4 G/DL (12.0-16.0) Oxygen Delivery Device VENTILATOR Blood Gas Ventilator Setting SEE COMMENTS Blood Gas Inspired Oxygen 40 % Imaging Last [address] 09/07/16 1800 Signed Impressions: Service Date/Time: Wednesday, September 07, 2016 18:06 - CONCLUSION: Normal examination. Artem Madera MD Chest X-Ray 09/07/16 1800 Signed Impressions: Service Date/Time: Wednesday, September 07, 2016 17:49 - CONCLUSION: Subtle densities in the upper lobes. Otherwise unremarkable chest. Artem Madera MD ADDENDUM: See above. Artem Madera MD Cervical Spine CT 09/07/16 1800 Signed Impressions: Service Date/Time: Wednesday, September 07, 2016 18:06 - CONCLUSION: 1. No fracture or subluxation. 2. Scattered groundglass nodules throughout the upper lobes, nonspecific but can be seen with hypersensitivity pneumonitis. Artem Madera MD Objective Remarks GENERAL: Well-nourished, well-developed patient. Comatose SKIN: Warm and dry. HEAD: Normocephalic. Pupils are 3 mm bilaterally slightly reactive, v slight corneal reflex EYES: No scleral icterus. No injection or drainage. NECK: Supple, trachea midline. No JVD or lymphadenopathy. Contusion anterior neck from hanging, carotids palpable CARDIOVASCULAR: Tachycardic rhythm. No murmurs. RESPIRATORY: Breath sounds equal bilaterally, intermittently tachypneic on the ventilator. Clear to auscultation anteriorly GASTROINTESTINAL: Abdomen soft, non-tender, distended. MUSCULOSKELETAL: No cyanosis, or edema. EXTREMITIES: No movement NEURO: Intubated currently on propofol for ICP control. Pupils are 3 mm reactive. Slight corneal reflex. To central pain slight withdrawal of ext x4 A/P Assessment and Plan NEURO: Severe anoxic brain injury Bilateral common carotid narrowing Attempted suicide by hanging Seizure - MRI shows evidence of diffuse anoxic brain injury. Poor prognosis - MRI with bilateral common carotid narrowing-vascular surgery consulted, no intervention. started aspirin 09/10, now held due to thrombocytopenia - CT 09/12-cerebral edema. ICP monitor placed 09/12 with ICP 10-20 overnight. Continue mannitol and 2% saline - EEG 09/10 bilateral sharp activity continue Dilantin. Level therapeutic levels. EEG 09/11 Encephalopathy, no sz. repeat today - s/p induced hypothermia. - Neurology Dr. Wong following - Toxicology negative CV: Shock resolved Status postcardiac arrest - 2% saline - Levophed to keep CPP 60-70 - Flow track, CVP monitoring - Bedside echo with slightly reduced EF. Resp: Acute hypoxemic respiratory failure Pre-hospital Aspiration pneumonitis Acute lung injury - Intubated for airway protection, hypoxemic respiratory failure from pre hospital aspiration, now improved - PRVC, ventilator bundle. DuoNeb every 6 hours and when necessary - No vent weaning - Patient has evidence of aspiration on admission as indicated by right lower lobe infiltrate - Continue Zosyn GI: Transaminitis most likely from shock - Tube feedings with Jevity, Pepcid, No BM - Give magnesium citrate today. Lactulose qid, add Dulcolax suppository - Ultrasound ordered for elevated liver enzymes, hepatitis panel Renal: Acute kidney injury Fluid overload - IV fluid as above, Benjamin catheter, monitor BUN/creatinine ID: Septic, neurogenic shock-resolved Aspiration pneumonia, prehospital - F/u blood urine and sputum cultures. Sputum with MSSA - Zosyn 4.5 g IV every 6 hours, vancomycin pharmacy dosing-DC vanc today Endo: - Electrolyte replacement per protocol - Sliding-scale insulin if needed HEME: Leukopenia, resolved and now leukocytosis Thrombocytopenia consumptive Large IVC thrombus - Leukopenia most likely from developing sepsis - Monitor CBC CMP coags - IVC filter placed 737 due to inability to anticoagulate (thrombocytopenia cerebral edema) - This was discussed with hematology Dr. Kwok and neurologist surgeon Dr. Davenport DVT GI prophylaxis - Chemical DVT prophylaxis once thrombocytopenia resolves and continue Pepcid Lines: - Right femoral cooling catheter and right brachial arterial line placed by Dr. England-DC both. L subclavian central line 09/10/16. L radail art line 09/12/16 Critical Care: The total critical care time was 45 minutes discontinuously. Time to perform other separately billable procedures was not included in the critical care time. Patient remains very critically ill. MRI shows evidence of anoxic brain injury. Prognosis remains poor for neurological recovery, family want to continue aggressive care for 1 week to see any improvement. Now complicated with large IVC thrombus, and cerebral edema Lyndon Bhatt MD Sep 13, 2016 08:41
[2016-09-13] MEDS: DOCUSATE SODIUM 100 MG/10 ML UDC PO SCH ×2 (10:08→20:13)
[2016-09-13] MEDS: POTASSIUM CHLORIDE 25 MEQ EFFERVESCENT TAB PO SCH (10:08)
[2016-09-13] MEDS: LACTULOSE SYRUP 20 GM/30 ML CUP PO SCH ×4 (10:08→20:13)
[2016-09-13] MEDS: ASPIRIN 81 MG CHEW TAB CHEW SCH (10:09)
[2016-09-13] MEDS: ARTIFICIAL TEARS OPTH SOLN 15 ML BTL EACH EYE SCH ×2 (10:09→20:13)
[2016-09-13] MEDS: BISACODYL 10 MG SUPP RECTAL SCH (10:09)
--- NOTE | 2016-09-13 11:00 | HHI.PR ---
Review/Management Diagnosis Severe anoxic encephalopathy--prognosis poor Plan continue cerebyx due to the sharp activity on eeg . Diagnosis/Plan: Subjective Subjective Comments CT brain over weekend showing diffuse cerebral edema. Intracranial pressure monitor has been placed Active Medications Current Medications Medications (Trade) Dose Ordered Sig/Jenaro Route Start Time Stop Time Status Last Admin (Vasotec Inj) 1.25 mg Q8H PRN IV 09/07/16 18:45 (Zofran Inj) 4 mg Q6H PRN IV 09/07/16 18:45 (Protonix Inj) 40 mg Q24H IVP 09/07/16 20:00 09/12/16 21:29 (Milk Of Magnesia Liq) 30 ml Q6H PRN PO 09/07/16 18:45 Miscellaneous Information 1 Q361D XX 09/07/16 18:45 09/07/16 18:45 (Chlorhexidine 2% Cloth) Taper DAILY@04 TOP 09/08/16 04:00 09/04/17 03:59 09/12/16 01:00 (Chlorhexidine 2% Cloth) 3 pack UNSCH PRN TOP 09/07/16 18:45 Lorazepam 1 mg 1 mg Q1H PRN IV 09/07/16 22:00 09/13/16 07:01 Miscellaneous Information ml @ 0 mls/hr UNSCH IV 09/07/16 22:00 (NS Flush) 2 ml UNSCH PRN IV FLUSH 09/07/16 22:00 (NS Flush) 2 ml UNSCH PRN IV FLUSH 09/07/16 22:00 Artificial Tears 1 applic 1 applic Q4H PRN EACH EYE 09/07/16 22:00 09/12/16 01:00 Potassium Chloride 100 ml @ 50 mls/hr Q2H PRN IV 09/08/16 00:30 09/13/16 09:02 (KCl 20 Meq Premix Inj) 100 ml @ 50 mls/hr Q2H PRN IV 09/08/16 00:30 09/08/16 18:20 Potassium Bicarb/ Potassium Chloride 50 meq 50 meq UNSCH PRN PO 09/08/16 00:30 Potassium Chloride 100 ml @ 25 mls/hr UNSCH PRN IV 09/08/16 00:30 09/09/16 10:06 Potassium Chloride 100 ml @ 50 mls/hr Q2H PRN IV 09/08/16 00:30 (Magnesium Sulfate Inj/NS Inj) 100 ml @ 50 mls/hr UNSCH PRN IV 09/08/16 00:30 Magnesium Oxide 800 mg 800 mg UNSCH PRN PO 09/08/16 00:30 (Magnesium Sulfate Inj/NS Inj) 100 ml @ 50 mls/hr UNSCH PRN IV 09/08/16 00:30 09/13/16 07:11 Potassium Phosphate 2000 mg 2,000 mg Q4H PRN PO 09/08/16 00:30 (Sodium Phosphate Inj/NS 250 ml Inj) 250 ml @ 42 mls/hr UNSCH PRN IV 09/08/16 00:30 Potassium Phosphate 2000 mg 2,000 mg UNSCH PRN PO/TUBE 09/08/16 00:30 Potassium Phosphate 30 mmol/ Sodium Chloride 260 ml @ 42 mls/hr UNSCH PRN IV 09/08/16 00:30 Propofol 100 ml @ 0 mls/hr TITRATE IV 09/08/16 02:00 09/13/16 06:50 (Zosyn 4.5 Gm Premix) 100 ml @ 200 mls/hr Q6H IV 09/08/16 08:00 09/13/16 10:12 (Cerebyx Inj) 100 mgpe Q8HR IV 09/09/16 14:00 09/13/16 05:36 (Aspirin Chew) 81 mg DAILY CHEW 09/10/16 09:00 09/13/16 10:09 (Tears Naturale Opth Soln) 1 drop BID EACH EYE 09/10/16 21:00 09/13/16 10:09 Docusate Sodium 100 mg 100 mg BID PO 09/10/16 21:00 09/13/16 10:08 (NS 1000 ml Inj) 1,000 ml @ 100 mls/hr Q10H IV 09/11/16 12:00 09/13/16 02:40 Lactulose 30 ml 30 ml QID PO 09/12/16 09:00 09/13/16 10:08 Sodium Chloride 188 meq/Sodium Chloride 1,047 ml @ 20 mls/hr Q24H IV 09/12/16 16:00 09/12/16 15:59 (Levophed-Dextrose Drip) 250 ml @ 0 mls/hr TITRATE IV 09/12/16 18:00 09/13/16 06:51 (Brethine Inj) 1 mg UNSCH PRN SQ 09/12/16 18:00 (Mannitol Inj) 12.5 gm Q8H IV 09/12/16 23:00 09/17/16 14:59 09/13/16 06:23 (K-Lyte Cl Eff) 25 meq DAILY PO 09/13/16 09:00 09/13/16 10:08 (Dulcolax Supp) 10 mg DAILY RECTAL 09/13/16 09:00 09/13/16 10:09 Allergies Allergies Coded Allergies No Known Allergies (Unverified09/07/16) Exam I&O / VS 09/12/16 09/12/16 09/13/16 15:00 23:00 07:00 Intake Total 1216 ml 1049 ml 1676 ml Output Total 2700 ml 1350 ml 675 ml Balance -1484 ml -301 ml 1001 ml Intake IV Total 1014 ml 989 ml 1584 ml Tube Feeding 142 ml 92 ml Tube Irrigant 60 ml 60 ml 0 ml Output Urine Total 2700 ml 1350 ml 675 ml # Bowel Movements 0 0 Vital Signs Date Time Temp Pulse Resp B/P Pulse Ox O2 Delivery O2 Flow Rate FiO2 09/13/16 10:52 100 40 09/13/16 08:00 99.0 98 25 137/78 98 09/13/16 08:00 40 09/13/16 04:13 99 40 09/13/16 04:00 40 09/13/16 04:00 98.4 86 18 98 104/60 09/13/16 00:51 99 40 09/13/16 00:00 97.4 80 18 100 100/60 09/13/16 00:00 40 09/12/16 21:46 100 40 09/12/16 21:46 100 40 09/12/16 20:00 74 09/12/16 20:00 100 100 09/12/16 20:00 96.0 78 18 97 112/68 09/12/16 20:00 40 09/12/16 18:00 86 09/12/16 16:00 90 09/12/16 16:00 40 09/12/16 16:00 98.7 90 18 105/64 95 102/64 09/12/16 15:56 98 40 09/12/16 14:00 89 09/12/16 12:11 99 40 09/12/16 12:00 97.6 88 28 123/82 99 09/12/16 12:00 99 40 09/12/16 12:00 40 09/12/16 12:00 88 Exam Comments does not respond to voice. She did not respond to stimuli of UE.No posturing pupils equal and sluggishly reacitve. EOM--minimal to occulocephalics No spontaneous limb movement No withdrawal to painful stimuli Objective Micro and Labs Laboratory Tests Test 09/12/16 09/12/16 09/12/16 09/12/16 13:23 15:15 16:50 21:37 Blood Gas Puncture Site ART LINE Blood Gas Patient Temperature 98.6 Blood Gas HCO3 25 Blood Gas Base Excess 1.3 Blood Gas Oxygen Saturation 97 Arterial Blood pH 7.45 Arterial Blood Partial 36 Pressure CO2 Arterial Blood Partial 123 Pressure O2 Arterial Blood Oxygen Content 15.8 Arterial Blood 1.0 Carboxyhemoglobin Arterial Blood Methemoglobin 0.7 Blood Gas Hemoglobin 11.4 Oxygen Delivery Device VENTILATOR Blood Gas Ventilator Setting SEE COMMENTS Blood Gas Inspired Oxygen 40 Sodium Level 147 148 Serum Osmolality 306 305 White Blood Count 10.3 Red Blood Count 4.08 Hemoglobin 11.5 Hematocrit 34.4 Mean Corpuscular Volume 84.2 Mean Corpuscular Hemoglobin 28.2 Mean Corpuscular Hemoglobin 33.4 Concent Red Cell Distribution Width 15.3 Platelet Count 70 Mean Platelet Volume 8.3 Neutrophils (%) (Auto) 77.6 Lymphocytes (%) (Auto) 13.4 Monocytes (%) (Auto) 6.3 Eosinophils (%) (Auto) 2.5 Basophils (%) (Auto) 0.2 Neutrophils # (Auto) 8.0 Lymphocytes # (Auto) 1.4 Monocytes # (Auto) 0.6 Eosinophils # (Auto) 0.3 Basophils # (Auto) 0.0 CBC Comment AUTO DIFF Differential Comment AUTO DIFF CONFIRMED Platelet Estimate LOW Platelet Morphology Comment NORMAL Prothrombin Time 11.9 Prothromb Time International 1.1 Ratio Activated Partial 30.0 Thromboplast Time Test 09/13/16 05:20 White Blood Count 9.4 Red Blood Count 3.86 Hemoglobin 10.9 Hematocrit 32.6 Mean Corpuscular Volume 84.3 Mean Corpuscular Hemoglobin 28.3 Mean Corpuscular Hemoglobin 33.5 Concent Red Cell Distribution Width 15.0 Platelet Count 69 Mean Platelet Volume 8.2 Neutrophils (%) (Auto) 75.0 Lymphocytes (%) (Auto) 11.1 Monocytes (%) (Auto) 9.8 Eosinophils (%) (Auto) 3.8 Basophils (%) (Auto) 0.3 Neutrophils # (Auto) 7.0 Lymphocytes # (Auto) 1.0 Monocytes # (Auto) 0.9 Eosinophils # (Auto) 0.4 Basophils # (Auto) 0.0 CBC Comment AUTO DIFF Differential Total Cells 100 Counted Neutrophils % (Manual) 68 Band Neutrophils % 16 Lymphocytes % 8 Monocytes % 4 Eosinophils % 4 Neutrophils # (Manual) 7.9 Nucleated Red Blood Cells 1 Differential Comment FINAL DIFF MANUAL Platelet Estimate LOW Platelet Morphology Comment NORMAL Red Cell Morphology Comment NORMAL Sodium Level 149 Potassium Level 2.9 Chloride Level 115 Carbon Dioxide Level 25.3 Anion Gap 9 Blood Urea Nitrogen 16 Creatinine 1.03 Estimat Glomerular Filtration 69 Rate Random Glucose 87 Serum Osmolality 307 Calcium Level 7.7 Magnesium Level 1.6 Total Bilirubin 0.5 Aspartate Amino Transf 69 (AST/SGOT) Alanine Aminotransferase 49 (ALT/SGPT) Alkaline Phosphatase 70 Total Protein 5.1 Albumin 1.9 Date/Time Procedure Status Source Growth 09/10/16 21:55 Aerobic Blood Culture - Preliminary Resulted Blood Peripheral NO GROWTH IN 2 DAYS 09/10/16 21:55 Anaerobic Blood Culture - Preliminary Resulted Blood Peripheral NO GROWTH IN 2 DAYS 09/10/16 18:33 Urine Culture - Final Complete Urine Clean Catch <10,000 CFU/ML YEAST Ham Wong PhD Sep 13, 2016 11:00
--- NOTE | 2016-09-13 14:58 | MG ---
cc: VINCE TORRES Lab No: [id number] Date: 09/13/2016 Age: Sex: F Race: TECHNIQUE 17-channel EEG. DESCRIPTION: The background rhythm reveals generalized slowing in the delta frequency at 3-4 Hz, amplitude is roughly 20-30 microvolts. There is muscle artifact throughout, I do not see any definite epileptiform activity. There are no lateralizing features. INTERPRETATION Abnormal study consistent with severe encephalopathy. MD ABRAN Richards/LILIYAL /2:31 PM /2:53 PM
--- NOTE | 2016-09-13 15:33 | HHI.NSPN ---
Note Status Status: Progress Note Interval History Diagnosis anoxic encephalopathy Interval History The patient has a 20-year-old female brought in as a Trauma Alert. She was found hanging from a pull-up bar. She was in asystole at the scene, treated with epinephrine and regained a pressure after that. Initially she was unresponsive. GCS was 3. The patient has been unresponsive. There has been no seizure activity at present. 09/13. No clinical improvement. Comatose. Myoclonic jerks Labs, Micro, & Vital Signs Results Date Time Temp Pulse Resp B/P Pulse Ox O2 Delivery O2 Flow Rate FiO2 09/13/16 13:08 99 40 09/13/16 12:00 40 09/13/16 12:00 98.6 100 18 105/52 97 09/13/16 10:52 100 40 09/13/16 08:00 99.0 98 25 137/78 98 09/13/16 08:00 40 09/13/16 04:13 99 40 09/13/16 04:00 40 09/13/16 04:00 98.4 86 18 98 104/60 09/13/16 00:51 99 40 09/13/16 00:00 97.4 80 18 100 100/60 09/13/16 00:00 40 09/12/16 21:46 100 40 09/12/16 21:46 100 40 09/12/16 20:00 74 09/12/16 20:00 100 100 09/12/16 20:00 96.0 78 18 97 112/68 09/12/16 20:00 40 09/12/16 18:00 86 09/12/16 16:00 90 09/12/16 16:00 40 09/12/16 16:00 98.7 90 18 105/64 95 102/64 09/12/16 15:56 98 40 09/13/16 07:00 Intake Total 3941 ml Output Total 4725 ml Balance -784 ml Constitutional Vital Signs Date Time Temp Pulse Resp B/P Pulse Ox O2 Delivery O2 Flow Rate FiO2 09/13/16 13:08 99 40 09/13/16 12:00 40 09/13/16 12:00 98.6 100 18 105/52 97 09/13/16 10:52 100 40 09/13/16 08:00 99.0 98 25 137/78 98 09/13/16 08:00 40 09/13/16 04:13 99 40 09/13/16 04:00 40 09/13/16 04:00 98.4 86 18 98 104/60 09/13/16 00:51 99 40 09/13/16 00:00 97.4 80 18 100 100/60 09/13/16 00:00 40 09/12/16 21:46 100 40 09/12/16 21:46 100 40 09/12/16 20:00 74 09/12/16 20:00 100 100 09/12/16 20:00 96.0 78 18 97 112/68 09/12/16 20:00 40 09/12/16 18:00 86 09/12/16 16:00 90 09/12/16 16:00 40 09/12/16 16:00 98.7 90 18 105/64 95 102/64 09/12/16 15:56 98 40 09/13/16 07:00 Intake Total 3941 ml Output Total 4725 ml Balance -784 ml Review of Systems/Exam Exam The patient is intubated and sedated. No response to pain Myoclonic jerks Cranial Nerves: Pupils 2mm, non-reactive to light. Eyes appear conjugated. There was no nystagmus, no papilledema. Face musculature appeared symmetrical at rest. Face sensation, olfaction, visual phillips, and hearing cannot be adequately assessed due to his neurological condition. The patient has a corneal reflex. SHe has no gag reflex. The sternocleidomastoid and trapezius are symmetrical. Cervical Spine: Her neck is soft, supple, without nuchal rigidity. Motor: No response to pain Reflexes: Deep tendon reflexes are trace in the biceps, triceps, and brachioradialis, bilaterally, in the upper extremities. In the lower extremities, the patellar and ankles TRACE. There is a bilateral silent response to plantar stim. There is no clonus Sensory: On examination there is no response to painful stimuli Cerebellar: Examination cannot be adequately assessed due to the patient's neurological condition. Medications Current Medications Current Medications Etomidate 40 mg 40 mg STK-MED ONCE .ROUTE ; Start 09/07/16 at 17:53; Stop at 17:54; Status DC Propofol (Diprivan 1000 Mg/100ml Inj) 100 ml @ As Directed STK-MED ONCE .ROUTE ; Start 09/07/16 at 18:14; Stop 09/07/16 at 18:15; Status DC Succinylcholine Chloride 200 mg 200 mg STK-MED ONCE .ROUTE ; Start 09/07/16 at 18:38; Stop 09/07/16 at 18:39; Status DC Sodium Chloride (NS 1000 ml Inj) 1,000 ml @ 100 mls/hr Q10H IV Last administered on 09/07/16 19:30; Start 09/07/16 at 19:30; Stop 09/08/16 at 03:31 ; Status DC Sodium Chloride (NS Flush) 2 ml UNSCH PRN IV FLUSH FLUSH AFTER USING IV ACCESS ; Start 09/07/16 at 18:45; Stop 09/12/16 at 17:55; Status DC Enalaprilat (Vasotec Inj) 1.25 mg Q8H PRN IV SBP>180, DBP>95; Start 09/07/16 at 18:45 Ondansetron HCl (Zofran Inj) 4 mg Q6H PRN IV NAUSEA OR VOMITING; Start at 18:45 Pantoprazole Sodium (Protonix Inj) 40 mg Q24H IVP Last administered on 21:29; Start 09/07/16 at 20:00 Docusate Sodium (Colace) 100 mg BID PO Last administered on 09/09/16 21:33; Start 09/07/16 at 21:00; Stop 09/10/16 at 09:20; Status DC Magnesium Hydroxide (Milk Of Magnesia Liq) 30 ml Q6H PRN PO CONSTIPATION; Start 09/07/16 at 18:45 Miscellaneous Information 1 [id number] XX Last administered on 09/07/16 18:45; Start 09/07/16 at 18:45 Chlorhexidine Gluconate (Chlorhexidine 2% Cloth) Taper DAILY@04 TOP Last administered on 09/12/16 01:00; Start 09/08/16 at 04:00; Stop 09/04/17 at 03:59 Chlorhexidine Gluconate 3 pack 3 pack UNSCH PRN TOP HYGIENIC CARE; Start at 18:45 Propofol 100 ml @ As Directed STK-MED ONCE .ROUTE Last administered on 01:42; Start 09/07/16 at 19:20; Stop 09/07/16 at 19:21; Status DC Midazolam HCl (Versed 100 Mg/ ml Inj) 100 ml @ 0 mls/hr TITRATE IV Last administered on 09/07/16 21:33; Start 09/07/16 at 21:30; Stop 09/11/16 at 11:27 ; Status DC Lorazepam 1 mg 1 mg Q1H PRN IV SEIZURES Last administered on 09/13/16 07:01; Start 09/07/16 at 22:00 Midazolam HCl 100 ml @ 0 mls/hr TITRATE IV ; Start 09/07/16 at 22:00; Stop 09/07 at 22:00; Status DC Miscellaneous Information ml @ 0 mls/hr UNSCH IV ; Start 09/07/16 at 22:00 Sodium Chloride (NS Flush) 2 ml UNSCH PRN IV FLUSH FLUSH AFTER USING IV ACCESS ; Start 09/07/16 at 22:00 Sodium Chloride 2 ml 2 ml UNSCH PRN IV FLUSH IV FLUSH; Start 09/07/16 at 22:00 Sodium Chloride (NS 1000 ml Inj) 1,000 ml @ 2,000 mls/hr Q30M IV Last administered on 09/08/16 00:23; Start 09/07/16 at 22:00; Stop 09/07/16 at 22:59 ; Status DC Artificial Tears 1 applic 1 applic Q4H PRN EACH EYE SEE LABEL COMMENTS Last administered on 09/12/16 01:00; Start 09/07/16 at 22:00 Cisatracurium Besylate 100 mg/ Sodium Chloride 250 ml @ 0 mls/hr TITRATE PRN IV ONLY IF SHIVERING Last administered on 09/08/16 08:21; Start 09/07/16 at 21: 30; Stop 09/09/16 at 07:48; Status DC Norepinephrine Bitartrate 4 mg/ Sodium Chloride 250 ml @ 0 mls/hr TITRATE IV ; Start 09/07/16 at 21:30; Stop 09/08/16 at 12:56; Status DC Sodium Chloride 2,000 ml @ 0 mls/hr NOW IV ; Start 09/07/16 at 23:00; Stop at 23:56; Status DC Potassium Chloride 100 ml @ 50 mls/hr Q2H PRN IV For Potassium 2.8 - 3.2 mEq/ L Last administered on 09/13/16 09:02; Start 09/08/16 at 00:30 Potassium Chloride (KCl 20 Meq Premix Inj) 100 ml @ 50 mls/hr Q2H PRN IV For Potassium 2.8 - 3.2 mEq/L Last administered on 09/08/16 18:20; Start 09/08/16 at 00:30 Potassium Bicarb/ Potassium Chloride 50 meq 50 meq UNSCH PRN PO For Potassium 3.3 - 3.5 mEq/L; Start 09/08/16 at 00:30 Potassium Chloride 100 ml @ 25 mls/hr UNSCH PRN IV For Potassium 3.3 - 3.5 mEq /L Last administered on 09/09/16 10:06; Start 09/08/16 at 00:30 Potassium Chloride 100 ml @ 50 mls/hr Q2H PRN IV For Potassium 3.3 - 3.5 mEq/L ; Start 09/08/16 at 00:30 Magnesium Sulfate/ Sodium Chloride (Magnesium Sulfate Inj/NS Inj) 100 ml @ 50 mls/hr UNSCH PRN IV For Magnesium 0.9 - 1.1 mg/dL; Start 09/08/16 at 00:30 Magnesium Oxide 800 mg 800 mg UNSCH PRN PO For Magnesium 1.2 - 1.6 mg/dL; Start 09/08/16 at 00:30 Magnesium Sulfate/ Sodium Chloride (Magnesium Sulfate Inj/NS Inj) 100 ml @ 50 mls/hr UNSCH PRN IV For Magnesium 1.2 - 1.6 mg/dL Last administered on 07:11; Start 09/08/16 at 00:30 Potassium Phosphate 2000 mg 2,000 mg Q4H PRN PO For Phosphorus < 2.5 mg/dL; Start 09/08/16 at 00:30 Sodium Phosphate/ Sodium Chloride (Sodium Phosphate Inj/NS 250 ml Inj) 250 ml @ 42 mls/hr UNSCH PRN IV For Phosphorus < 2.5 mg/dL; Start 09/08/16 at 00:30 Potassium Phosphate 2000 mg 2,000 mg UNSCH PRN PO/TUBE SEE LABEL COMMENTS; Start 09/08/16 at 00:30 Potassium Phosphate 30 mmol/ Sodium Chloride 260 ml @ 42 mls/hr UNSCH PRN IV SEE LABEL COMMENTS; Start 09/08/16 at 00:30 Propofol 100 ml @ As Directed STK-MED ONCE .ROUTE ; Start 09/08/16 at 01:36; Stop 09/08/16 at 01:37; Status DC Propofol (Diprivan 1000 Mg/100ml Inj) 100 ml @ 0 mls/hr TITRATE IV Last administered on 09/13/16 06:50; Start 09/08/16 at 02:00 Vecuronium Lomax 10 mg 10 mg STK-MED ONCE .ROUTE ; Start 09/08/16 at 02:33; Stop 09/08/16 at 02:34; Status DC Sodium Chloride (NS 1000 ml Inj) 1,000 ml @ 0 mls/hr NOW IV Last administered on 09/08/16 02:44; Start 09/08/16 at 02:45; Stop 09/08/16 at 03:20; Status DC Vecuronium Lomax 10 mg 10 mg NOW IV Last administered on 09/08/16 02:43; Start 09/08/16 at 02:35; Stop 09/08/16 at 02:46; Status DC Sodium Bicarbonate 150 meq/Dextrose 1,150 ml @ 100 mls/hr [id number] IV Last administered on 09/08/16 03:53; Start 09/08/16 at 04:00; Stop 09/08/16 at 12:56 ; Status DC Fentanyl Citrate (fentaNYL DRIP) 250 ml @ 0 mls/hr TITRATE IV Last administered on 09/08/16 05:06; Start 09/08/16 at 05:00; Stop 09/11/16 at 11:27 ; Status DC Phenylephrine HCl (Neosynephrine Inj) 10 mg STK-MED ONCE .ROUTE ; Start at 07:00; Stop 09/08/16 at 07:02; Status DC Phenylephrine HCl 10 mg 10 mg STK-MED ONCE .ROUTE ; Start 09/08/16 at 07:06; Stop 09/08/16 at 07:07; Status DC Piperacillin Sod/ Tazobactam Sod (Zosyn 4.5 Gm Premix) 100 ml @ 200 mls/hr Q6H IV Last administered on 09/13/16 13:38; Start 09/08/16 at 08:00 Terbutaline Sulfate 1 mg 1 mg UNSCH PRN SQ For Extravasation; Start 09/08/16 at 07:30; Stop 09/08/16 at 13:02; Status DC Phenylephrine HCl 160 mg/Dextrose 500 ml @ 0 mls/hr TITRATE IV ; Start 09/08/16 at 07:30; Stop 09/08/16 at 12:57; Status DC Sodium Chloride (NS 1000 ml Inj) 1,000 ml @ 999 mls/hr BOLUS ONCE IV Last administered on 09/08/16 07:30; Start 09/08/16 at 07:30; Stop 09/08/16 at 08:30 ; Status DC Albumin Human 25 gm 25 gm ONCE ONCE IV Last administered on 09/08/16 08:05; Start 09/08/16 at 08:00; Stop 09/08/16 at 08:01; Status DC Vancomycin HCl 1000 mg/Sodium Chloride 250 ml @ 250 mls/hr ONCE ONCE IV Last administered on 09/08/16 09:01; Start 09/08/16 at 08:30; Stop 09/08/16 at 09:29 ; Status DC Sodium Bicarbonate (Sodium Bicarbonate 8.4% Inj) 50 ml @ As Directed STK-MED ONCE .ROUTE ; Start 09/08/16 at 08:49; Stop 09/08/16 at 08:50; Status DC Sodium Bicarbonate 100 meq 100 meq STAT ONCE IV Last administered on 09:00; Start 09/08/16 at 11:00; Stop 09/08/16 at 11:01; Status DC Norepinephrine Bitartrate/Sodium Chloride (Levophed Inj/NS 250 ml Inj) 250 ml @ 0 mls/hr TITRATE IV Last administered on 09/09/16 17:54; Start 09/08/16 at 13: 00; Stop 09/09/16 at 11:11; Status DC Terbutaline Sulfate 1 mg 1 mg UNSCH PRN SQ For Extravasation; Start 09/08/16 at 13:00; Stop 09/09/16 at 17:47; Status DC Sodium Bicarbonate 150 meq/Sterile Water 1,150 ml @ 150 mls/hr Q7H40M IV Last administered on 09/09/16 05:26; Start 09/08/16 at 15:00; Stop 09/09/16 at 07:47 ; Status DC Sodium Chloride 1,000 ml @ 0 mls/hr BOLUS ONCE IV Last administered on 14:00; Start 09/08/16 at 14:15; Stop 09/08/16 at 14:16; Status DC Sodium Chloride 1,000 ml @ 0 mls/hr BOLUS ONCE IV ; Start 09/08/16 at 14:30; Stop 09/08/16 at 14:31; Status Cancel Sodium Chloride (NS 1000 ml Inj) 1,000 ml @ 999 mls/hr BOLUS ONCE IV Last administered on 09/08/16 18:00; Start 09/08/16 at 18:00; Stop 09/08/16 at 19:00 ; Status DC Lorazepam (Ativan Inj) 2 mg STK-MED ONCE .ROUTE ; Start 09/09/16 at 06:53; Stop 09/09/16 at 06:54; Status DC Lorazepam (Ativan Inj) 4 mg STK-MED ONCE .ROUTE ; Start 09/09/16 at 06:57; Stop 09/09/16 at 06:58; Status DC Phenylephrine HCl (Neosynephrine Inj) 40 mg STK-MED ONCE .ROUTE ; Start at 07:33; Stop 09/09/16 at 07:34; Status DC Phenylephrine HCl 40 mg 40 mg STK-MED ONCE .ROUTE ; Start 09/09/16 at 07:34; Stop 09/09/16 at 07:35; Status DC Fosphenytoin Sodium/Sodium Chloride (Cerebyx Inj/NS Inj) 70 ml @ 280 mls/hr ONCE ONCE IV Last administered on 09/09/16 08:15; Start 09/09/16 at 09:00; Stop 09/09/16 at 09:14; Status DC Fosphenytoin Sodium (Cerebyx Inj) 100 mgpe Q8HR IV Last administered on 13:39; Start 09/09/16 at 14:00 Lorazepam 6 mg 6 mg ONCE ONCE IV Last administered on 09/09/16 07:00; Start 09/09/16 at 08:00; Stop 09/09/16 at 08:01; Status DC Phenylephrine HCl/ Dextrose (Neosynephrine Inj/D5W 500 ml Inj) 500 ml @ 0 mls/ hr TITRATE IV ; Start 09/09/16 at 09:45; Stop 09/09/16 at 09:45; Status DC Terbutaline Sulfate 1 mg 1 mg UNSCH PRN SQ FOR EXTRAVASATION PROTOCOL; Start at 09:45; Stop 09/13/16 at 08:38; Status DC Phenylephrine HCl 40 mg/Sodium Chloride 500 ml @ 0 mls/hr TITRATE IV Last administered on 09/09/16 17:55; Start 09/09/16 at 09:45; Stop 09/09/16 at 17:47 ; Status DC Vancomycin HCl 1000 mg/Sodium Chloride 250 ml @ 250 mls/hr ONCE ONCE IV Last administered on 09/09/16 11:23; Start 09/09/16 at 10:45; Stop 09/09/16 at 11:44 ; Status DC Pharmacy Profile Note 0 ml @ 0 mls/hr UNSCH OTHER ; Start 09/09/16 at 10:45; Stop 09/13/16 at 08:39; Status DC Norepinephrine Bitartrate 4 mg/ Sodium Chloride 250 ml @ 0 mls/hr TITRATE IV Last administered on 09/09/16 15:33; Start 09/09/16 at 11:15; Stop 09/09/16 at 17:47; Status DC Vancomycin HCl/ Sodium Chloride (Vancomycin Inj/ NS 250 ml Inj) 250 ml @ 250 mls/hr Q8H IV Last administered on 09/11/16 05:52; Start 09/09/16 at 20:00; Stop 09/11/16 at 12:58; Status DC Miscellaneous Information SPECIFIC LAB TO BE DRAWN:VANCOMYCIN TROUGH DATE TO... ONCE ONCE .XX Last administered on 09/10/16 11:27; Start 09/10/16 at 11:45; Stop 09/10/16 at 11:46; Status DC Sodium Chloride (NS 1000 ml Inj) 1,000 ml @ 999 mls/hr Q1H1M IV Last administered on 09/09/16 11:00; Start 09/09/16 at 11:45; Stop 09/09/16 at 13:45 ; Status DC Gadodiamide 20 ml 20 ml STK-MED ONCE IV Last administered on 09/09/16 16:39; Start 09/09/16 at 16:39; Stop 09/09/16 at 16:40; Status DC Phenylephrine HCl/ Dextrose (Neosynephrine Inj/D5W 500 ml Inj) 500 ml @ 0 mls/ hr TITRATE IV ; Start 09/09/16 at 18:00; Stop 09/09/16 at 18:00; Status DC Terbutaline Sulfate 1 mg 1 mg UNSCH PRN SQ FOR EXTRAVASATION PROTOCOL; Start at 18:00; Stop 09/13/16 at 08:38; Status DC Norepinephrine Bitartrate 16 mg/ Dextrose 250 ml @ 0 mls/hr TITRATE IV ; Start 09/09/16 at 18:00; Stop 09/09/16 at 18:00; Status DC Phenylephrine HCl 160 mg/Sodium Chloride 500 ml @ 0 mls/hr TITRATE IV Last administered on 09/10/16 04:52; Start 09/09/16 at 18:00; Stop 09/11/16 at 11:27 ; Status DC Norepinephrine Bitartrate/Sodium Chloride (Levophed Inj/NS 250 ml Inj) 250 ml @ 0 mls/hr TITRATE IV Last administered on 09/10/16 04:52; Start 09/09/16 at 18: 00; Stop 09/13/16 at 08:39; Status DC Aspirin (Aspirin Chew) 81 mg DAILY CHEW Last administered on 09/13/16 10:09; Start 09/10/16 at 09:00 Artificial Tears (Tears Naturale Opth Soln) 1 drop BID EACH EYE Last administered on 09/13/16 10:09; Start 09/10/16 at 21:00 Docusate Sodium (Colace Liq) 100 mg BID PO Last administered on 09/13/16 10:08 ; Start 09/10/16 at 21:00 Midazolam HCl (Versed Inj) 5 mg STK-MED ONCE .ROUTE ; Start 09/10/16 at 09:43; Stop 09/10/16 at 09:44; Status DC Acetaminophen (Tylenol 650 Mg/ 20 ml Liq) 650 mg NOW ONCE PO Last administered on 09/10/16 11:19; Start 09/10/16 at 10:30; Stop 09/10/16 at 10:31 ; Status DC Dextrose (D50w (Syr) Inj) 50 ml STK-MED ONCE .ROUTE ; Start 09/10/16 at 12:49; Stop 09/10/16 at 12:50; Status DC Dextrose (D50w (Syr) Inj) 50 ml NOW ONCE IV PUSH Last administered on 12:45; Start 09/10/16 at 13:30; Stop 09/10/16 at 13:31; Status DC Miscellaneous Information SPECIFIC LAB TO BE DRAWN:VANCOMYCIN TROUGH DATE TO... ONCE ONCE .XX Last administered on 09/11/16 11:45; Start 09/11/16 at 11:45; Stop 09/11/16 at 11:46; Status DC Midazolam HCl (Versed Inj) 3 mg ONCE ONCE IV PUSH Last administered on 09:44; Start 09/10/16 at 14:15; Stop 09/10/16 at 14:16; Status DC Dextrose 50 ml 50 ml NOW ONCE IV PUSH Last administered on 09/10/16 16:09; Start 09/10/16 at 16:00; Stop 09/10/16 at 16:34; Status DC Sodium Chloride (NS 1000 ml Inj) 1,000 ml @ 100 mls/hr Q10H IV Last administered on 09/13/16 13:38; Start 09/11/16 at 12:00 Propranolol HCl (Inderal) 20 mg Q8HR PO Last administered on 09/12/16 04:44; Start 09/11/16 at 14:00; Stop 09/12/16 at 17:13; Status DC Magnesium Citrate (Citroma Liq) 300 ml ONCE ONCE NG ; Start 09/12/16 at 09:00; Stop 09/12/16 at 09:01; Status DC Lactulose 30 ml 30 ml QID PO Last administered on 09/13/16 10:08; Start at 09:00 Vancomycin HCl/ Sodium Chloride (Vancomycin Inj/ NS 250 ml Inj) 250 ml @ 250 mls/hr Q12H IV Last administered on 09/12/16 21:29; Start 09/12/16 at 10:00; Stop 09/13/16 at 08:39; Status DC Miscellaneous Information SPECIFIC LAB TO BE CHANDU... ONCE ONCE .XX ; Start at 09:45; Stop 09/14/16 at 09:45; Status DC Furosemide (Lasix Inj) 20 mg ONCE ONCE IV PUSH Last administered on 09/12/16 12:04; Start 09/12/16 at 09:30; Stop 09/12/16 at 09:31; Status DC Mannitol 12.5 gm 12.5 gm Q8H IV Last administered on 09/12/16 15:37; Start at 14:00; Stop 09/12/16 at 21:51; Status DC Sodium Chloride 188 meq/Sodium Chloride 1,047 ml @ 20 mls/hr Q24H IV Last administered on 09/12/16 15:59; Start 09/12/16 at 16:00 Norepinephrine Bitartrate (Levophed-Dextrose Drip) 250 ml @ 0 mls/hr TITRATE IV Last administered on 09/13/16 06:51; Start 09/12/16 at 18:00 Terbutaline Sulfate (Brethine Inj) 1 mg UNSCH PRN SQ For Extravasation; Start 09/12/16 at 18:00 Iohexol (Omnipaque 350 Inj) 30 ml STK-MED ONCE IV Last administered on 21:02; Start 09/12/16 at 21:02; Stop 09/12/16 at 21:03; Status DC Mannitol (Mannitol Inj) 12.5 gm Q8H IV Last administered on 09/13/16 06:23; Start 09/12/16 at 23:00; Stop 09/17/16 at 14:59 Potassium Bicarb/ Potassium Chloride (K-Lyte Cl Eff) 25 meq DAILY PO Last administered on 09/13/16 10:08; Start 09/13/16 at 09:00 Magnesium Citrate (Citroma Liq) 300 ml ONCE ONCE PO ; Start 09/13/16 at 08:30; Stop 09/13/16 at 08:41; Status DC Bisacodyl (Dulcolax Supp) 10 mg DAILY RECTAL Last administered on 09/13/16 10: 09; Start 09/13/16 at 09:00 Medical Decision Making MDM Remarks Last Impressions Chest X-Ray 09/13/16 0600 Signed Impressions: Service Date/Time: Tuesday, September 13, 2016 04:49 - CONCLUSION: 1. Hazy opacity in both lungs without significant change. This may represent pulmonary edema which may be noncardiogenic. 2. Artifact projected over the right suprahilar region limiting visualization. Seth Breen MD Liver Ultrasound 09/12/16 Signed Impressions: Service Date/Time: Monday, September 12, 2016 16:15 - CONCLUSION: 1. 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 2. Pericholecystic fluid and gallbladder wall thickening raising the possibility of cholecystitis. A hepatobiliary scan may be helpful to confirm cystic duct obstruction if clinically indicated. 3. Gallbladder sludge. 4. Ascites. 5. Bilateral pleural effusions. 6. Mild hepatomegaly. 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 This is nonocclusive. A retrievable IVC filter was deployed below the main hepatic veins but it was necessary to cross an accessory right hepatic vein. Jose Armando Jackson Jr., MD Head CT 09/12/16 Signed Impressions: Service Date/Time: Monday, September 12, 2016 09:29 - CONCLUSION: Mild loss of lemos matter definition that can be seen with increasing intracranial pressure. Ricki Cavazos MD FACR Neck Magnetic Resonance Angiography 09/09/16 Signed Impressions: Service Date/Time: August 16:02 - CONCLUSION: 1. Moderate to severe smooth narrowing of the left common carotid artery and also moderate narrowing of the proximal right common carotid artery as well as narrowing of both proximal vertebral arteries likely related to recent hanging. Etiology could be related to vasospasm or recent extrinsic prolonged compression. The distal internal carotid arteries and vertebral artery have more normal calibers. Findings called to Dr. Bhatt at the time of dictation. Gideon Brown MD Cervical Spine MRI 09/09/16 Signed Impressions: Service Date/Time: August 16:02 - CONCLUSION: 1. Very minimal degenerative disc disease at C5-6. 2. No acute fracture or prevertebral soft tissue swelling. 3. No focal cervical cord abnormality. Tray Santiago MD Brain MRI 7/27/17 0000 Signed Impressions: Service Date/Time: August 16:02 - CONCLUSION: 1. Diffuse FLAIR-weighted hyperintensities involving the caudate nuclei bilaterally, bilateral hummel radiata, as well as the bilateral parietal and occipital cortex consistent with the patient's clinical diagnosis of anoxic encephalopathy. 2. No acute hemorrhage, midline shift, extra-axial fluid collection or abnormal enhancement. 3. Small fluid level within the right sphenoid sinus. Tray Santiago MD Cervical Spine CT 09/07/16 1800 Signed Impressions: Service Date/Time: Wednesday, September 07, 2016 18:06 - CONCLUSION: 1. No fracture or subluxation. 2. Scattered groundglass nodules throughout the upper lobes, nonspecific but can be seen with hypersensitivity pneumonitis. Artem Madera MD Attending Statement Continue neuro checks. Anoxic encephalopathy Pulmonary. Continue mechanical ventilation. Continue aggressive pulmonary toilette, nasotracheal suction, and breathing treatments with nebulizers. Nutrition. NPO Renal. monitor closely urine output, BUN and creatinine Endocrine. Monitor serial Acu checks and SSI as needed in detail ID monitor for signs of infection Protonix for stress ulcer prophylaxis Carlitos hosdoron and SCD's for DVT prophylaxis Jomar José MD Sep 13, 2016 15:33
[2016-09-13] MEDS: SODIUM CHLORIDE 23.4% INJ 188 MEQ in SODIUM CHLOR 0.9% 1000 ML INJ 1,000 ML IV SCH (16:06)
[2016-09-13 18:54] LABS: POTASSIUM 3.7 MEQ/L (3.5-5.1)
[2016-09-13 18:55] LABS: MAGNESIUM 2.1 MG/DL (1.5-2.5)
[2016-09-13] MEDS: PANTOPRAZOLE SODIUM 40 MG VIAL IVP SCH (20:13)
[2016-09-14] VITALS (16 sets, daily range): BP systolic 96–146; BP diastolic 50–72; PULSE 90–115; RESP 18–24; TEMP 98–100.1; O2SAT 97–100
[2016-09-14] MEDS: CHLORHEXIDINE GLUCONATE 2 % 1 PACK (2 CLOTHS) TOP SCH (01:45)
[2016-09-14] MEDS: PIPERACIL-TAZO 4.5 GM PREMIX 100 ML IV SCH ×4 (01:45→20:01)
[2016-09-14] MEDS: LORazepam 2 MG/ML VIAL IV PRN (02:45)
[2016-09-14] MEDS: FOSPHENYTOIN SODIUM 100 MG PE/2 ML VIAL IV SCH ×3 (05:36→22:06)
[2016-09-14] MEDS: MANNITOL 12.5 GM/50 ML VIAL IV SCH ×3 (05:37→23:00)
[2016-09-14] MEDS: LACTULOSE SYRUP 20 GM/30 ML CUP PO SCH ×4 (09:00→20:02)
[2016-09-14] MEDS: DOCUSATE SODIUM 100 MG/10 ML UDC PO SCH ×2 (09:00→20:02)
[2016-09-14] MEDS: BISACODYL 10 MG SUPP RECTAL SCH (09:00)
[2016-09-14] MEDS: ARTIFICIAL TEARS OPTH SOLN 15 ML BTL EACH EYE SCH ×2 (09:42→20:03)
[2016-09-14] MEDS: POTASSIUM CHLORIDE 25 MEQ EFFERVESCENT TAB PO SCH (09:43)
[2016-09-14] MEDS ORDERED: PHARMACY ORDERED LAB ONE (09:45)
[2016-09-14] MEDS: SODIUM CHLOR 0.9% 1000 ML INJ 1,000 ML IV SCH ×2 (11:10→19:49)
[2016-09-14] MEDS: PROPOFOL 1000 MG/100 ML IV SCH ×3 (11:13→22:57)
--- NOTE | 2016-09-14 15:32 | HHI.NSPN ---
Note Status Status: Progress Note Interval History Diagnosis anoxic encephalopathy Interval History The patient has a 20-year-old female brought in as a Trauma Alert. She was found hanging from a pull-up bar. She was in asystole at the scene, treated with epinephrine and regained a pressure after that. Initially she was unresponsive. GCS was 3. The patient has been unresponsive. There has been no seizure activity at present. 09/13. No clinical improvement. Comatose. Myoclonic jerks 09/14 has not shown any clinical improvement Labs, Micro, & Vital Signs Results Date Time Temp Pulse Resp B/P Pulse Ox O2 Delivery O2 Flow Rate FiO2 09/14/16 14:00 115 09/14/16 13:39 98 40 09/14/16 12:00 105 09/14/16 12:00 40 09/14/16 10:00 96 09/14/16 08:47 98 40 09/14/16 08:47 98 40 09/14/16 08:00 40 09/14/16 08:00 98.1 98 18 96/50 97 Automatic Cuff 09/14/16 08:00 98 09/14/16 04:00 97 40 09/14/16 04:00 98.0 100 18 97 126/68 09/14/16 04:00 40 09/14/16 01:25 100 40 09/14/16 00:00 98.4 90 18 99 118/66 09/14/16 00:00 40 09/13/16 22:48 99 40 09/13/16 20:00 99.0 92 18 97 110/62 09/13/16 20:00 40 09/13/16 20:00 93 09/13/16 19:45 98 40 09/13/16 19:45 98 40 09/13/16 17:16 99 40 09/13/16 16:00 40 09/13/16 16:00 98.3 96 18 130/64 99 09/14/16 06:59 Intake Total 4934 ml Output Total 2700 ml Balance 2234 ml Constitutional Vital Signs Date Time Temp Pulse Resp B/P Pulse Ox O2 Delivery O2 Flow Rate FiO2 09/14/16 14:00 115 09/14/16 13:39 98 40 09/14/16 12:00 105 09/14/16 12:00 40 09/14/16 10:00 96 09/14/16 08:47 98 40 09/14/16 08:47 98 40 09/14/16 08:00 40 09/14/16 08:00 98.1 98 18 96/50 97 Automatic Cuff 09/14/16 08:00 98 09/14/16 04:00 97 40 09/14/16 04:00 98.0 100 18 97 126/68 09/14/16 04:00 40 09/14/16 01:25 100 40 09/14/16 00:00 98.4 90 18 99 118/66 09/14/16 00:00 40 09/13/16 22:48 99 40 09/13/16 20:00 99.0 92 18 97 110/62 09/13/16 20:00 40 09/13/16 20:00 93 09/13/16 19:45 98 40 09/13/16 19:45 98 40 09/13/16 17:16 99 40 09/13/16 16:00 40 09/13/16 16:00 98.3 96 18 130/64 99 09/14/16 06:59 Intake Total 4934 ml Output Total 2700 ml Balance 2234 ml Review of Systems/Exam Exam She is intubated and sedated. No response to pain Myoclonic jerks Cranial Nerves: Pupils 2mm, non-reactive to light. Eyes appear conjugated. There was no nystagmus, no papilledema. Face musculature appeared symmetrical at rest. Face sensation, olfaction, visual phillips, and hearing cannot be adequately assessed due to his neurological condition. The patient has a corneal reflex. SHe has no gag reflex. The sternocleidomastoid and trapezius are symmetrical. Cervical Spine: Her neck is soft, supple, without nuchal rigidity. Motor: No response to pain Reflexes: Deep tendon reflexes are trace in the biceps, triceps, and brachioradialis, bilaterally, in the upper extremities. In the lower extremities, the patellar and ankles TRACE. There is a bilateral silent response to plantar stim. There is no clonus Sensory: On examination there is no response to painful stimuli Cerebellar: Examination cannot be adequately assessed due to the patient's neurological condition. Medications Current Medications Current Medications Etomidate 40 mg 40 mg STK-MED ONCE .ROUTE ; Start 09/07/16 at 17:53; Stop at 17:54; Status DC Propofol (Diprivan 1000 Mg/100ml Inj) 100 ml @ As Directed STK-MED ONCE .ROUTE ; Start 09/07/16 at 18:14; Stop 09/07/16 at 18:15; Status DC Succinylcholine Chloride 200 mg 200 mg STK-MED ONCE .ROUTE ; Start 09/07/16 at 18:38; Stop 09/07/16 at 18:39; Status DC Sodium Chloride (NS 1000 ml Inj) 1,000 ml @ 100 mls/hr Q10H IV Last administered on 09/07/16 19:30; Start 09/07/16 at 19:30; Stop 09/08/16 at 03:31 ; Status DC Sodium Chloride (NS Flush) 2 ml UNSCH PRN IV FLUSH FLUSH AFTER USING IV ACCESS ; Start 09/07/16 at 18:45; Stop 09/12/16 at 17:55; Status DC Enalaprilat (Vasotec Inj) 1.25 mg Q8H PRN IV SBP>180, DBP>95; Start 09/07/16 at 18:45 Ondansetron HCl (Zofran Inj) 4 mg Q6H PRN IV NAUSEA OR VOMITING; Start at 18:45 Pantoprazole Sodium (Protonix Inj) 40 mg Q24H IVP Last administered on 20:13; Start 09/07/16 at 20:00 Docusate Sodium (Colace) 100 mg BID PO Last administered on 09/09/16 21:33; Start 09/07/16 at 21:00; Stop 09/10/16 at 09:20; Status DC Magnesium Hydroxide (Milk Of Magnesia Liq) 30 ml Q6H PRN PO CONSTIPATION; Start 09/07/16 at 18:45 Miscellaneous Information 1 [id number] Last administered on 09/07/16 18:45; Start 09/07/16 at 18:45 Chlorhexidine Gluconate (Chlorhexidine 2% Cloth) Taper DAILY@04 TOP Last administered on 09/12/16 01:00; Start 09/08/16 at 04:00; Stop 09/04/17 at 03:59 Chlorhexidine Gluconate 3 pack 3 pack UNSCH PRN TOP HYGIENIC CARE; Start at 18:45 Propofol 100 ml @ As Directed STK-MED ONCE .ROUTE Last administered on 01:42; Start 09/07/16 at 19:20; Stop 09/07/16 at 19:21; Status DC Midazolam HCl (Versed 100 Mg/ ml Inj) 100 ml @ 0 mls/hr TITRATE IV Last administered on 09/07/16 21:33; Start 09/07/16 at 21:30; Stop 09/11/16 at 11:27 ; Status DC Lorazepam 1 mg 1 mg Q1H PRN IV SEIZURES Last administered on 09/14/16 02:45; Start 09/07/16 at 22:00 Midazolam HCl 100 ml @ 0 mls/hr TITRATE IV ; Start 09/07/16 at 22:00; Stop 09/07 at 22:00; Status DC Miscellaneous Information ml @ 0 mls/hr UNSCH IV ; Start 09/07/16 at 22:00 Sodium Chloride (NS Flush) 2 ml UNSCH PRN IV FLUSH FLUSH AFTER USING IV ACCESS ; Start 09/07/16 at 22:00 Sodium Chloride 2 ml 2 ml UNSCH PRN IV FLUSH IV FLUSH; Start 09/07/16 at 22:00 Sodium Chloride (NS 1000 ml Inj) 1,000 ml @ 2,000 mls/hr Q30M IV Last administered on 09/08/16 00:23; Start 09/07/16 at 22:00; Stop 09/07/16 at 22:59 ; Status DC Artificial Tears 1 applic 1 applic Q4H PRN EACH EYE SEE LABEL COMMENTS Last administered on 09/12/16 01:00; Start 09/07/16 at 22:00 Cisatracurium Besylate 100 mg/ Sodium Chloride 250 ml @ 0 mls/hr TITRATE PRN IV ONLY IF SHIVERING Last administered on 09/08/16 08:21; Start 09/07/16 at 21: 30; Stop 09/09/16 at 07:48; Status DC Norepinephrine Bitartrate 4 mg/ Sodium Chloride 250 ml @ 0 mls/hr TITRATE IV ; Start 09/07/16 at 21:30; Stop 09/08/16 at 12:56; Status DC Sodium Chloride 2,000 ml @ 0 mls/hr NOW IV ; Start 09/07/16 at 23:00; Stop at 23:56; Status DC Potassium Chloride 100 ml @ 50 mls/hr Q2H PRN IV For Potassium 2.8 - 3.2 mEq/ L Last administered on 09/13/16 09:02; Start 09/08/16 at 00:30 Potassium Chloride (KCl 20 Meq Premix Inj) 100 ml @ 50 mls/hr Q2H PRN IV For Potassium 2.8 - 3.2 mEq/L Last administered on 09/08/16 18:20; Start 09/08/16 at 00:30 Potassium Bicarb/ Potassium Chloride 50 meq 50 meq UNSCH PRN PO For Potassium 3.3 - 3.5 mEq/L; Start 09/08/16 at 00:30 Potassium Chloride 100 ml @ 25 mls/hr UNSCH PRN IV For Potassium 3.3 - 3.5 mEq /L Last administered on 09/09/16 10:06; Start 09/08/16 at 00:30 Potassium Chloride 100 ml @ 50 mls/hr Q2H PRN IV For Potassium 3.3 - 3.5 mEq/L ; Start 09/08/16 at 00:30 Magnesium Sulfate/ Sodium Chloride (Magnesium Sulfate Inj/NS Inj) 100 ml @ 50 mls/hr UNSCH PRN IV For Magnesium 0.9 - 1.1 mg/dL; Start 09/08/16 at 00:30 Magnesium Oxide 800 mg 800 mg UNSCH PRN PO For Magnesium 1.2 - 1.6 mg/dL; Start 09/08/16 at 00:30 Magnesium Sulfate/ Sodium Chloride (Magnesium Sulfate Inj/NS Inj) 100 ml @ 50 mls/hr UNSCH PRN IV For Magnesium 1.2 - 1.6 mg/dL Last administered on 07:11; Start 09/08/16 at 00:30 Potassium Phosphate 2000 mg 2,000 mg Q4H PRN PO For Phosphorus < 2.5 mg/dL; Start 09/08/16 at 00:30 Sodium Phosphate/ Sodium Chloride (Sodium Phosphate Inj/NS 250 ml Inj) 250 ml @ 42 mls/hr UNSCH PRN IV For Phosphorus < 2.5 mg/dL; Start 09/08/16 at 00:30 Potassium Phosphate 2000 mg 2,000 mg UNSCH PRN PO/TUBE SEE LABEL COMMENTS; Start 09/08/16 at 00:30 Potassium Phosphate 30 mmol/ Sodium Chloride 260 ml @ 42 mls/hr UNSCH PRN IV SEE LABEL COMMENTS; Start 09/08/16 at 00:30 Propofol 100 ml @ As Directed STK-MED ONCE .ROUTE ; Start 09/08/16 at 01:36; Stop 09/08/16 at 01:37; Status DC Propofol (Diprivan 1000 Mg/100ml Inj) 100 ml @ 0 mls/hr TITRATE IV Last administered on 09/14/16 11:13; Start 09/08/16 at 02:00 Vecuronium Baring 10 mg 10 mg STK-MED ONCE .ROUTE ; Start 09/08/16 at 02:33; Stop 09/08/16 at 02:34; Status DC Sodium Chloride (NS 1000 ml Inj) 1,000 ml @ 0 mls/hr NOW IV Last administered on 09/08/16 02:44; Start 09/08/16 at 02:45; Stop 09/08/16 at 03:20; Status DC Vecuronium Baring 10 mg 10 mg NOW IV Last administered on 09/08/16 02:43; Start 09/08/16 at 02:35; Stop 09/08/16 at 02:46; Status DC Sodium Bicarbonate 150 meq/Dextrose 1,150 ml @ 100 mls/hr [id number] IV Last administered on 09/08/16 03:53; Start 09/08/16 at 04:00; Stop 09/08/16 at 12:56 ; Status DC Fentanyl Citrate (fentaNYL DRIP) 250 ml @ 0 mls/hr TITRATE IV Last administered on 09/08/16 05:06; Start 09/08/16 at 05:00; Stop 09/11/16 at 11:27 ; Status DC Phenylephrine HCl (Neosynephrine Inj) 10 mg STK-MED ONCE .ROUTE ; Start at 07:00; Stop 09/08/16 at 07:02; Status DC Phenylephrine HCl 10 mg 10 mg STK-MED ONCE .ROUTE ; Start 09/08/16 at 07:06; Stop 09/08/16 at 07:07; Status DC Piperacillin Sod/ Tazobactam Sod (Zosyn 4.5 Gm Premix) 100 ml @ 200 mls/hr Q6H IV Last administered on 09/14/16 14:00; Start 09/08/16 at 08:00 Terbutaline Sulfate 1 mg 1 mg UNSCH PRN SQ For Extravasation; Start 09/08/16 at 07:30; Stop 09/08/16 at 13:02; Status DC Phenylephrine HCl 160 mg/Dextrose 500 ml @ 0 mls/hr TITRATE IV ; Start 09/08/16 at 07:30; Stop 09/08/16 at 12:57; Status DC Sodium Chloride (NS 1000 ml Inj) 1,000 ml @ 999 mls/hr BOLUS ONCE IV Last administered on 09/08/16 07:30; Start 09/08/16 at 07:30; Stop 09/08/16 at 08:30 ; Status DC Albumin Human 25 gm 25 gm ONCE ONCE IV Last administered on 09/08/16 08:05; Start 09/08/16 at 08:00; Stop 09/08/16 at 08:01; Status DC Vancomycin HCl 1000 mg/Sodium Chloride 250 ml @ 250 mls/hr ONCE ONCE IV Last administered on 09/08/16 09:01; Start 09/08/16 at 08:30; Stop 09/08/16 at 09:29 ; Status DC Sodium Bicarbonate (Sodium Bicarbonate 8.4% Inj) 50 ml @ As Directed STK-MED ONCE .ROUTE ; Start 09/08/16 at 08:49; Stop 09/08/16 at 08:50; Status DC Sodium Bicarbonate 100 meq 100 meq STAT ONCE IV Last administered on 09:00; Start 09/08/16 at 11:00; Stop 09/08/16 at 11:01; Status DC Norepinephrine Bitartrate/Sodium Chloride (Levophed Inj/NS 250 ml Inj) 250 ml @ 0 mls/hr TITRATE IV Last administered on 09/09/16 17:54; Start 09/08/16 at 13: 00; Stop 09/09/16 at 11:11; Status DC Terbutaline Sulfate 1 mg 1 mg UNSCH PRN SQ For Extravasation; Start 09/08/16 at 13:00; Stop 09/09/16 at 17:47; Status DC Sodium Bicarbonate 150 meq/Sterile Water 1,150 ml @ 150 mls/hr Q7H40M IV Last administered on 09/09/16 05:26; Start 09/08/16 at 15:00; Stop 09/09/16 at 07:47 ; Status DC Sodium Chloride 1,000 ml @ 0 mls/hr BOLUS ONCE IV Last administered on 14:00; Start 09/08/16 at 14:15; Stop 09/08/16 at 14:16; Status DC Sodium Chloride 1,000 ml @ 0 mls/hr BOLUS ONCE IV ; Start 09/08/16 at 14:30; Stop 09/08/16 at 14:31; Status Cancel Sodium Chloride (NS 1000 ml Inj) 1,000 ml @ 999 mls/hr BOLUS ONCE IV Last administered on 09/08/16 18:00; Start 09/08/16 at 18:00; Stop 09/08/16 at 19:00 ; Status DC Lorazepam (Ativan Inj) 2 mg STK-MED ONCE .ROUTE ; Start 09/09/16 at 06:53; Stop 09/09/16 at 06:54; Status DC Lorazepam (Ativan Inj) 4 mg STK-MED ONCE .ROUTE ; Start 09/09/16 at 06:57; Stop 09/09/16 at 06:58; Status DC Phenylephrine HCl (Neosynephrine Inj) 40 mg STK-MED ONCE .ROUTE ; Start at 07:33; Stop 09/09/16 at 07:34; Status DC Phenylephrine HCl 40 mg 40 mg STK-MED ONCE .ROUTE ; Start 09/09/16 at 07:34; Stop 09/09/16 at 07:35; Status DC Fosphenytoin Sodium/Sodium Chloride (Cerebyx Inj/NS Inj) 70 ml @ 280 mls/hr ONCE ONCE IV Last administered on 09/09/16 08:15; Start 09/09/16 at 09:00; Stop 09/09/16 at 09:14; Status DC Fosphenytoin Sodium (Cerebyx Inj) 100 mgpe Q8HR IV Last administered on 14:00; Start 09/09/16 at 14:00 Lorazepam 6 mg 6 mg ONCE ONCE IV Last administered on 09/09/16 07:00; Start 09/09/16 at 08:00; Stop 09/09/16 at 08:01; Status DC Phenylephrine HCl/ Dextrose (Neosynephrine Inj/D5W 500 ml Inj) 500 ml @ 0 mls/ hr TITRATE IV ; Start 09/09/16 at 09:45; Stop 09/09/16 at 09:45; Status DC Terbutaline Sulfate 1 mg 1 mg UNSCH PRN SQ FOR EXTRAVASATION PROTOCOL; Start at 09:45; Stop 09/13/16 at 08:38; Status DC Phenylephrine HCl 40 mg/Sodium Chloride 500 ml @ 0 mls/hr TITRATE IV Last administered on 09/09/16 17:55; Start 09/09/16 at 09:45; Stop 09/09/16 at 17:47 ; Status DC Vancomycin HCl 1000 mg/Sodium Chloride 250 ml @ 250 mls/hr ONCE ONCE IV Last administered on 09/09/16 11:23; Start 09/09/16 at 10:45; Stop 09/09/16 at 11:44 ; Status DC Pharmacy Profile Note 0 ml @ 0 mls/hr UNSCH OTHER ; Start 09/09/16 at 10:45; Stop 09/13/16 at 08:39; Status DC Norepinephrine Bitartrate 4 mg/ Sodium Chloride 250 ml @ 0 mls/hr TITRATE IV Last administered on 09/09/16 15:33; Start 09/09/16 at 11:15; Stop 09/09/16 at 17:47; Status DC Vancomycin HCl/ Sodium Chloride (Vancomycin Inj/ NS 250 ml Inj) 250 ml @ 250 mls/hr Q8H IV Last administered on 09/11/16 05:52; Start 09/09/16 at 20:00; Stop 09/11/16 at 12:58; Status DC Miscellaneous Information SPECIFIC LAB TO BE DRAWN:VANCOMYCIN TROUGH DATE TO... ONCE ONCE .XX Last administered on 09/10/16 11:27; Start 09/10/16 at 11:45; Stop 09/10/16 at 11:46; Status DC Sodium Chloride (NS 1000 ml Inj) 1,000 ml @ 999 mls/hr Q1H1M IV Last administered on 09/09/16 11:00; Start 09/09/16 at 11:45; Stop 09/09/16 at 13:45 ; Status DC Gadodiamide 20 ml 20 ml STK-MED ONCE IV Last administered on 09/09/16 16:39; Start 09/09/16 at 16:39; Stop 09/09/16 at 16:40; Status DC Phenylephrine HCl/ Dextrose (Neosynephrine Inj/D5W 500 ml Inj) 500 ml @ 0 mls/ hr TITRATE IV ; Start 09/09/16 at 18:00; Stop 09/09/16 at 18:00; Status DC Terbutaline Sulfate 1 mg 1 mg UNSCH PRN SQ FOR EXTRAVASATION PROTOCOL; Start at 18:00; Stop 09/13/16 at 08:38; Status DC Norepinephrine Bitartrate 16 mg/ Dextrose 250 ml @ 0 mls/hr TITRATE IV ; Start 09/09/16 at 18:00; Stop 09/09/16 at 18:00; Status DC Phenylephrine HCl 160 mg/Sodium Chloride 500 ml @ 0 mls/hr TITRATE IV Last administered on 09/10/16 04:52; Start 09/09/16 at 18:00; Stop 09/11/16 at 11:27 ; Status DC Norepinephrine Bitartrate/Sodium Chloride (Levophed Inj/NS 250 ml Inj) 250 ml @ 0 mls/hr TITRATE IV Last administered on 09/10/16 04:52; Start 09/09/16 at 18: 00; Stop 09/13/16 at 08:39; Status DC Aspirin (Aspirin Chew) 81 mg DAILY CHEW Last administered on 09/13/16 10:09; Start 09/10/16 at 09:00; Status Hold Artificial Tears (Tears Naturale Opth Soln) 1 drop BID EACH EYE Last administered on 09/14/16 09:42; Start 09/10/16 at 21:00 Docusate Sodium (Colace Liq) 100 mg BID PO Last administered on 09/13/16 20:13 ; Start 09/10/16 at 21:00 Midazolam HCl (Versed Inj) 5 mg STK-MED ONCE .ROUTE ; Start 09/10/16 at 09:43; Stop 09/10/16 at 09:44; Status DC Acetaminophen (Tylenol 650 Mg/ 20 ml Liq) 650 mg NOW ONCE PO Last administered on 09/10/16 11:19; Start 09/10/16 at 10:30; Stop 09/10/16 at 10:31 ; Status DC Dextrose (D50w (Syr) Inj) 50 ml STK-MED ONCE .ROUTE ; Start 09/10/16 at 12:49; Stop 09/10/16 at 12:50; Status DC Dextrose (D50w (Syr) Inj) 50 ml NOW ONCE IV PUSH Last administered on 12:45; Start 09/10/16 at 13:30; Stop 09/10/16 at 13:31; Status DC Miscellaneous Information SPECIFIC LAB TO BE DRAWN:VANCOMYCIN TROUGH DATE TO... ONCE ONCE .XX Last administered on 09/11/16 11:45; Start 09/11/16 at 11:45; Stop 09/11/16 at 11:46; Status DC Midazolam HCl (Versed Inj) 3 mg ONCE ONCE IV PUSH Last administered on 09:44; Start 09/10/16 at 14:15; Stop 09/10/16 at 14:16; Status DC Dextrose 50 ml 50 ml NOW ONCE IV PUSH Last administered on 09/10/16 16:09; Start 09/10/16 at 16:00; Stop 09/10/16 at 16:34; Status DC Sodium Chloride (NS 1000 ml Inj) 1,000 ml @ 100 mls/hr Q10H IV Last administered on 09/14/16 11:10; Start 09/11/16 at 12:00 Propranolol HCl (Inderal) 20 mg Q8HR PO Last administered on 09/12/16 04:44; Start 09/11/16 at 14:00; Stop 09/12/16 at 17:13; Status DC Magnesium Citrate (Citroma Liq) 300 ml ONCE ONCE NG ; Start 09/12/16 at 09:00; Stop 09/12/16 at 09:01; Status DC Lactulose 30 ml 30 ml QID PO Last administered on 09/13/16 10:08; Start at 09:00 Vancomycin HCl/ Sodium Chloride (Vancomycin Inj/ NS 250 ml Inj) 250 ml @ 250 mls/hr Q12H IV Last administered on 09/12/16 21:29; Start 09/12/16 at 10:00; Stop 09/13/16 at 08:39; Status DC Miscellaneous Information SPECIFIC LAB TO BE CHANDU... ONCE ONCE .XX ; Start at 09:45; Stop 09/14/16 at 09:45; Status DC Furosemide (Lasix Inj) 20 mg ONCE ONCE IV PUSH Last administered on 09/12/16 12:04; Start 09/12/16 at 09:30; Stop 09/12/16 at 09:31; Status DC Mannitol 12.5 gm 12.5 gm Q8H IV Last administered on 09/12/16 15:37; Start at 14:00; Stop 09/12/16 at 21:51; Status DC Sodium Chloride 188 meq/Sodium Chloride 1,047 ml @ 20 mls/hr Q24H IV Last administered on 09/13/16 16:06; Start 09/12/16 at 16:00 Norepinephrine Bitartrate (Levophed-Dextrose Drip) 250 ml @ 0 mls/hr TITRATE IV Last administered on 09/13/16 06:51; Start 09/12/16 at 18:00 Terbutaline Sulfate (Brethine Inj) 1 mg UNSCH PRN SQ For Extravasation; Start 09/12/16 at 18:00 Iohexol (Omnipaque 350 Inj) 30 ml STK-MED ONCE IV Last administered on 21:02; Start 09/12/16 at 21:02; Stop 09/12/16 at 21:03; Status DC Mannitol (Mannitol Inj) 12.5 gm Q8H IV Last administered on 09/13/16 06:23; Start 09/12/16 at 23:00; Stop 09/17/16 at 14:59 Potassium Bicarb/ Potassium Chloride (K-Lyte Cl Eff) 25 meq DAILY PO Last administered on 09/14/16 09:43; Start 09/13/16 at 09:00 Magnesium Citrate (Citroma Liq) 300 ml ONCE ONCE PO ; Start 09/13/16 at 08:30; Stop 09/13/16 at 08:41; Status DC Bisacodyl (Dulcolax Supp) 10 mg DAILY RECTAL Last administered on 09/13/16 10: 09; Start 09/13/16 at 09:00 Medical Decision Making MDM Remarks Last Impressions Chest X-Ray 09/13/16 0600 Signed Impressions: Service Date/Time: Tuesday, September 13, 2016 04:49 - CONCLUSION: 1. Hazy opacity in both lungs without significant change. This may represent pulmonary edema which may be noncardiogenic. 2. Artifact projected over the right suprahilar region limiting visualization. Seth Breen MD Liver Ultrasound 09/12/16 0000 Signed Impressions: Service Date/Time: Monday, September 12, 2016 16:15 - CONCLUSION: 1. 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 2. Pericholecystic fluid and gallbladder wall thickening raising the possibility of cholecystitis. A hepatobiliary scan may be helpful to confirm cystic duct obstruction if clinically indicated. 3. Gallbladder sludge. 4. Ascites. 5. Bilateral pleural effusions. 6. Mild hepatomegaly. 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 This is nonocclusive. A retrievable IVC filter was deployed below the main hepatic veins but it was necessary to cross an accessory right hepatic vein. Jose Armando Jackson Jr., MD Head CT 09/12/16 0000 Signed Impressions: Service Date/Time: Monday, September 12, 2016 09:29 - CONCLUSION: Mild loss of lemos matter definition that can be seen with increasing intracranial pressure. Ricki Cavazos MD FACR Neck Magnetic Resonance Angiography 09/09/16 0000 Signed Impressions: Service Date/Time: August 16:02 - CONCLUSION: 1. Moderate to severe smooth narrowing of the left common carotid artery and also moderate narrowing of the proximal right common carotid artery as well as narrowing of both proximal vertebral arteries likely related to recent hanging. Etiology could be related to vasospasm or recent extrinsic prolonged compression. The distal internal carotid arteries and vertebral artery have more normal calibers. Findings called to Dr. Bhatt at the time of dictation. Gideon Brown MD Cervical Spine MRI 09/09/16 0000 Signed Impressions: Service Date/Time: August 16:02 - CONCLUSION: 1. Very minimal degenerative disc disease at C5-6. 2. No acute fracture or prevertebral soft tissue swelling. 3. No focal cervical cord abnormality. Tray Santiago MD Brain MRI 09/09/16 0000 Signed Impressions: Service Date/Time: August 16:02 - CONCLUSION: 1. Diffuse FLAIR-weighted hyperintensities involving the caudate nuclei bilaterally, bilateral hummel radiata, as well as the bilateral parietal and occipital cortex consistent with the patient's clinical diagnosis of anoxic encephalopathy. 2. No acute hemorrhage, midline shift, extra-axial fluid collection or abnormal enhancement. 3. Small fluid level within the right sphenoid sinus. Tray Santiago MD Cervical Spine CT 09/07/16 1800 Signed Impressions: Service Date/Time: Wednesday, September 07, 2016 18:06 - CONCLUSION: 1. No fracture or subluxation. 2. Scattered groundglass nodules throughout the upper lobes, nonspecific but can be seen with hypersensitivity pneumonitis. Artem Madera MD Last Impressions Chest X-Ray 09/13/16 0600 Signed Impressions: Service Date/Time: Tuesday, September 13, 2016 04:49 - CONCLUSION: 1. Hazy opacity in both lungs without significant change. This may represent pulmonary edema which may be noncardiogenic. 2. Artifact projected over the right suprahilar region limiting visualization. Seth Breen MD Liver Ultrasound 09/12/16 0000 Signed Impressions: Service Date/Time: Monday, September 12, 2016 16:15 - CONCLUSION: 1. 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 2. Pericholecystic fluid and gallbladder wall thickening raising the possibility of cholecystitis. A hepatobiliary scan may be helpful to confirm cystic duct obstruction if clinically indicated. 3. Gallbladder sludge. 4. Ascites. 5. Bilateral pleural effusions. 6. Mild hepatomegaly. 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 This is nonocclusive. A retrievable IVC filter was deployed below the main hepatic veins but it was necessary to cross an accessory right hepatic vein. Jose Armando Jackson Jr., MD Head CT 09/12/16 0000 Signed Impressions: Service Date/Time: Monday, September 12, 2016 09:29 - CONCLUSION: Mild loss of lemos matter definition that can be seen with increasing intracranial pressure. Ricki Cavazos MD FACR Neck Magnetic Resonance Angiography 09/09/16 0000 Signed Impressions: Service Date/Time: August 16:02 - CONCLUSION: 1. Moderate to severe smooth narrowing of the left common carotid artery and also moderate narrowing of the proximal right common carotid artery as well as narrowing of both proximal vertebral arteries likely related to recent hanging. Etiology could be related to vasospasm or recent extrinsic prolonged compression. The distal internal carotid arteries and vertebral artery have more normal calibers. Findings called to Dr. Bhatt at the time of dictation. Gideon Brown MD Cervical Spine MRI 09/09/16 0000 Signed Impressions: Service Date/Time: August 16:02 - CONCLUSION: 1. Very minimal degenerative disc disease at C5-6. 2. No acute fracture or prevertebral soft tissue swelling. 3. No focal cervical cord abnormality. Tray Santiago MD Brain MRI 09/09/16 0000 Signed Impressions: Service Date/Time: August 16:02 - CONCLUSION: 1. Diffuse FLAIR-weighted hyperintensities involving the caudate nuclei bilaterally, bilateral hummel radiata, as well as the bilateral parietal and occipital cortex consistent with the patient's clinical diagnosis of anoxic encephalopathy. 2. No acute hemorrhage, midline shift, extra-axial fluid collection or abnormal enhancement. 3. Small fluid level within the right sphenoid sinus. Tray Santiago MD Cervical Spine CT 09/07/16 1800 Signed Impressions: Service Date/Time: Wednesday, September 07, 2016 18:06 - CONCLUSION: 1. No fracture or subluxation. 2. Scattered groundglass nodules throughout the upper lobes, nonspecific but can be seen with hypersensitivity pneumonitis. Artem Madera MD Plan Plan Remarks Current Medications Etomidate 40 mg 40 mg STK-MED ONCE .ROUTE ; Start 09/07/16 at 17:53; Stop at 17:54; Status DC Propofol (Diprivan 1000 Mg/100ml Inj) 100 ml @ As Directed STK-MED ONCE .ROUTE ; Start 09/07/16 at 18:14; Stop 09/07/16 at 18:15; Status DC Succinylcholine Chloride 200 mg 200 mg STK-MED ONCE .ROUTE ; Start 09/07/16 at 18:38; Stop 09/07/16 at 18:39; Status DC Sodium Chloride (NS 1000 ml Inj) 1,000 ml @ 100 mls/hr Q10H IV Last administered on 09/07/16 19:30; Start 09/07/16 at 19:30; Stop 09/08/16 at 03:31 ; Status DC Sodium Chloride (NS Flush) 2 ml UNSCH PRN IV FLUSH FLUSH AFTER USING IV ACCESS ; Start 09/07/16 at 18:45; Stop 09/12/16 at 17:55; Status DC Enalaprilat (Vasotec Inj) 1.25 mg Q8H PRN IV SBP>180, DBP>95; Start 09/07/16 at 18:45 Ondansetron HCl (Zofran Inj) 4 mg Q6H PRN IV NAUSEA OR VOMITING; Start at 18:45 Pantoprazole Sodium (Protonix Inj) 40 mg Q24H IVP Last administered on 20:13; Start 09/07/16 at 20:00 Docusate Sodium (Colace) 100 mg BID PO Last administered on 09/09/16 21:33; Start 09/07/16 at 21:00; Stop 09/10/16 at 09:20; Status DC Magnesium Hydroxide (Milk Of Magnesia Liq) 30 ml Q6H PRN PO CONSTIPATION; Start 09/07/16 at 18:45 Miscellaneous Information 1 [id number] Last administered on 09/07/16 18:45; Start 09/07/16 at 18:45 Chlorhexidine Gluconate (Chlorhexidine 2% Cloth) Taper DAILY@04 TOP Last administered on 09/12/16 01:00; Start 09/08/16 at 04:00; Stop 09/04/17 at 03:59 Chlorhexidine Gluconate 3 pack 3 pack UNSCH PRN TOP HYGIENIC CARE; Start at 18:45 Propofol 100 ml @ As Directed STK-MED ONCE .ROUTE Last administered on 01:42; Start 09/07/16 at 19:20; Stop 09/07/16 at 19:21; Status DC Midazolam HCl (Versed 100 Mg/ ml Inj) 100 ml @ 0 mls/hr TITRATE IV Last administered on 09/07/16 21:33; Start 09/07/16 at 21:30; Stop 09/11/16 at 11:27 ; Status DC Lorazepam 1 mg 1 mg Q1H PRN IV SEIZURES Last administered on 09/14/16 02:45; Start 09/07/16 at 22:00 Midazolam HCl 100 ml @ 0 mls/hr TITRATE IV ; Start 09/07/16 at 22:00; Stop 09/07 at 22:00; Status DC Miscellaneous Information ml @ 0 mls/hr UNSCH IV ; Start 09/07/16 at 22:00 Sodium Chloride (NS Flush) 2 ml UNSCH PRN IV FLUSH FLUSH AFTER USING IV ACCESS ; Start 09/07/16 at 22:00 Sodium Chloride 2 ml 2 ml UNSCH PRN IV FLUSH IV FLUSH; Start 09/07/16 at 22:00 Sodium Chloride (NS 1000 ml Inj) 1,000 ml @ 2,000 mls/hr Q30M IV Last administered on 09/08/16 00:23; Start 09/07/16 at 22:00; Stop 09/07/16 at 22:59 ; Status DC Artificial Tears 1 applic 1 applic Q4H PRN EACH EYE SEE LABEL COMMENTS Last administered on 09/12/16 01:00; Start 09/07/16 at 22:00 Cisatracurium Besylate 100 mg/ Sodium Chloride 250 ml @ 0 mls/hr TITRATE PRN IV ONLY IF SHIVERING Last administered on 09/08/16 08:21; Start 09/07/16 at 21: 30; Stop 09/09/16 at 07:48; Status DC Norepinephrine Bitartrate 4 mg/ Sodium Chloride 250 ml @ 0 mls/hr TITRATE IV ; Start 09/07/16 at 21:30; Stop 09/08/16 at 12:56; Status DC Sodium Chloride 2,000 ml @ 0 mls/hr NOW IV ; Start 09/07/16 at 23:00; Stop at 23:56; Status DC Potassium Chloride 100 ml @ 50 mls/hr Q2H PRN IV For Potassium 2.8 - 3.2 mEq/ L Last administered on 09/13/16 09:02; Start 09/08/16 at 00:30 Potassium Chloride (KCl 20 Meq Premix Inj) 100 ml @ 50 mls/hr Q2H PRN IV For Potassium 2.8 - 3.2 mEq/L Last administered on 09/08/16 18:20; Start 09/08/16 at 00:30 Potassium Bicarb/ Potassium Chloride 50 meq 50 meq UNSCH PRN PO For Potassium 3.3 - 3.5 mEq/L; Start 09/08/16 at 00:30 Potassium Chloride 100 ml @ 25 mls/hr UNSCH PRN IV For Potassium 3.3 - 3.5 mEq /L Last administered on 09/09/16 10:06; Start 09/08/16 at 00:30 Potassium Chloride 100 ml @ 50 mls/hr Q2H PRN IV For Potassium 3.3 - 3.5 mEq/L ; Start 09/08/16 at 00:30 Magnesium Sulfate/ Sodium Chloride (Magnesium Sulfate Inj/NS Inj) 100 ml @ 50 mls/hr UNSCH PRN IV For Magnesium 0.9 - 1.1 mg/dL; Start 09/08/16 at 00:30 Magnesium Oxide 800 mg 800 mg UNSCH PRN PO For Magnesium 1.2 - 1.6 mg/dL; Start 09/08/16 at 00:30 Magnesium Sulfate/ Sodium Chloride (Magnesium Sulfate Inj/NS Inj) 100 ml @ 50 mls/hr UNSCH PRN IV For Magnesium 1.2 - 1.6 mg/dL Last administered on 07:11; Start 09/08/16 at 00:30 Potassium Phosphate 2000 mg 2,000 mg Q4H PRN PO For Phosphorus < 2.5 mg/dL; Start 09/08/16 at 00:30 Sodium Phosphate/ Sodium Chloride (Sodium Phosphate Inj/NS 250 ml Inj) 250 ml @ 42 mls/hr UNSCH PRN IV For Phosphorus < 2.5 mg/dL; Start 09/08/16 at 00:30 Potassium Phosphate 2000 mg 2,000 mg UNSCH PRN PO/TUBE SEE LABEL COMMENTS; Start 09/08/16 at 00:30 Potassium Phosphate 30 mmol/ Sodium Chloride 260 ml @ 42 mls/hr UNSCH PRN IV SEE LABEL COMMENTS; Start 09/08/16 at 00:30 Propofol 100 ml @ As Directed STK-MED ONCE .ROUTE ; Start 09/08/16 at 01:36; Stop 09/08/16 at 01:37; Status DC Propofol (Diprivan 1000 Mg/100ml Inj) 100 ml @ 0 mls/hr TITRATE IV Last administered on 09/14/16 11:13; Start 09/08/16 at 02:00 Vecuronium Baring 10 mg 10 mg STK-MED ONCE .ROUTE ; Start 09/08/16 at 02:33; Stop 09/08/16 at 02:34; Status DC Sodium Chloride (NS 1000 ml Inj) 1,000 ml @ 0 mls/hr NOW IV Last administered on 09/08/16 02:44; Start 09/08/16 at 02:45; Stop 09/08/16 at 03:20; Status DC Vecuronium Baring 10 mg 10 mg NOW IV Last administered on 09/08/16 02:43; Start 09/08/16 at 02:35; Stop 09/08/16 at 02:46; Status DC Sodium Bicarbonate 150 meq/Dextrose 1,150 ml @ 100 mls/hr [id number] IV Last administered on 09/08/16 03:53; Start 09/08/16 at 04:00; Stop 09/08/16 at 12:56 ; Status DC Fentanyl Citrate (fentaNYL DRIP) 250 ml @ 0 mls/hr TITRATE IV Last administered on 09/08/16 05:06; Start 09/08/16 at 05:00; Stop 09/11/16 at 11:27 ; Status DC Phenylephrine HCl (Neosynephrine Inj) 10 mg STK-MED ONCE .ROUTE ; Start at 07:00; Stop 09/08/16 at 07:02; Status DC Phenylephrine HCl 10 mg 10 mg STK-MED ONCE .ROUTE ; Start 09/08/16 at 07:06; Stop 09/08/16 at 07:07; Status DC Piperacillin Sod/ Tazobactam Sod (Zosyn 4.5 Gm Premix) 100 ml @ 200 mls/hr Q6H IV Last administered on 09/14/16 14:00; Start 09/08/16 at 08:00 Terbutaline Sulfate 1 mg 1 mg UNSCH PRN SQ For Extravasation; Start 09/08/16 at 07:30; Stop 09/08/16 at 13:02; Status DC Phenylephrine HCl 160 mg/Dextrose 500 ml @ 0 mls/hr TITRATE IV ; Start 09/08/16 at 07:30; Stop 09/08/16 at 12:57; Status DC Sodium Chloride (NS 1000 ml Inj) 1,000 ml @ 999 mls/hr BOLUS ONCE IV Last administered on 09/08/16 07:30; Start 09/08/16 at 07:30; Stop 09/08/16 at 08:30 ; Status DC Albumin Human 25 gm 25 gm ONCE ONCE IV Last administered on 09/08/16 08:05; Start 09/08/16 at 08:00; Stop 09/08/16 at 08:01; Status DC Vancomycin HCl 1000 mg/Sodium Chloride 250 ml @ 250 mls/hr ONCE ONCE IV Last administered on 09/08/16 09:01; Start 09/08/16 at 08:30; Stop 09/08/16 at 09:29 ; Status DC Sodium Bicarbonate (Sodium Bicarbonate 8.4% Inj) 50 ml @ As Directed STK-MED ONCE .ROUTE ; Start 09/08/16 at 08:49; Stop 09/08/16 at 08:50; Status DC Sodium Bicarbonate 100 meq 100 meq STAT ONCE IV Last administered on 09:00; Start 09/08/16 at 11:00; Stop 09/08/16 at 11:01; Status DC Norepinephrine Bitartrate/Sodium Chloride (Levophed Inj/NS 250 ml Inj) 250 ml @ 0 mls/hr TITRATE IV Last administered on 09/09/16 17:54; Start 09/08/16 at 13: 00; Stop 09/09/16 at 11:11; Status DC Terbutaline Sulfate 1 mg 1 mg UNSCH PRN SQ For Extravasation; Start 09/08/16 at 13:00; Stop 09/09/16 at 17:47; Status DC Sodium Bicarbonate 150 meq/Sterile Water 1,150 ml @ 150 mls/hr Q7H40M IV Last administered on 09/09/16 05:26; Start 09/08/16 at 15:00; Stop 09/09/16 at 07:47 ; Status DC Sodium Chloride 1,000 ml @ 0 mls/hr BOLUS ONCE IV Last administered on 14:00; Start 09/08/16 at 14:15; Stop 09/08/16 at 14:16; Status DC Sodium Chloride 1,000 ml @ 0 mls/hr BOLUS ONCE IV ; Start 09/08/16 at 14:30; Stop 09/08/16 at 14:31; Status Cancel Sodium Chloride (NS 1000 ml Inj) 1,000 ml @ 999 mls/hr BOLUS ONCE IV Last administered on 09/08/16 18:00; Start 09/08/16 at 18:00; Stop 09/08/16 at 19:00 ; Status DC Lorazepam (Ativan Inj) 2 mg STK-MED ONCE .ROUTE ; Start 09/09/16 at 06:53; Stop 09/09/16 at 06:54; Status DC Lorazepam (Ativan Inj) 4 mg STK-MED ONCE .ROUTE ; Start 09/09/16 at 06:57; Stop 09/09/16 at 06:58; Status DC Phenylephrine HCl (Neosynephrine Inj) 40 mg STK-MED ONCE .ROUTE ; Start at 07:33; Stop 09/09/16 at 07:34; Status DC Phenylephrine HCl 40 mg 40 mg STK-MED ONCE .ROUTE ; Start 09/09/16 at 07:34; Stop 09/09/16 at 07:35; Status DC Fosphenytoin Sodium/Sodium Chloride (Cerebyx Inj/NS Inj) 70 ml @ 280 mls/hr ONCE ONCE IV Last administered on 09/09/16 08:15; Start 09/09/16 at 09:00; Stop 09/09/16 at 09:14; Status DC Fosphenytoin Sodium (Cerebyx Inj) 100 mgpe Q8HR IV Last administered on 14:00; Start 09/09/16 at 14:00 Lorazepam 6 mg 6 mg ONCE ONCE IV Last administered on 09/09/16 07:00; Start 09/09/16 at 08:00; Stop 09/09/16 at 08:01; Status DC Phenylephrine HCl/ Dextrose (Neosynephrine Inj/D5W 500 ml Inj) 500 ml @ 0 mls/ hr TITRATE IV ; Start 09/09/16 at 09:45; Stop 09/09/16 at 09:45; Status DC Terbutaline Sulfate 1 mg 1 mg UNSCH PRN SQ FOR EXTRAVASATION PROTOCOL; Start at 09:45; Stop 09/13/16 at 08:38; Status DC Phenylephrine HCl 40 mg/Sodium Chloride 500 ml @ 0 mls/hr TITRATE IV Last administered on 09/09/16 17:55; Start 09/09/16 at 09:45; Stop 09/09/16 at 17:47 ; Status DC Vancomycin HCl 1000 mg/Sodium Chloride 250 ml @ 250 mls/hr ONCE ONCE IV Last administered on 09/09/16 11:23; Start 09/09/16 at 10:45; Stop 09/09/16 at 11:44 ; Status DC Pharmacy Profile Note 0 ml @ 0 mls/hr UNSCH OTHER ; Start 09/09/16 at 10:45; Stop 09/13/16 at 08:39; Status DC Norepinephrine Bitartrate 4 mg/ Sodium Chloride 250 ml @ 0 mls/hr TITRATE IV Last administered on 09/09/16 15:33; Start 09/09/16 at 11:15; Stop 09/09/16 at 17:47; Status DC Vancomycin HCl/ Sodium Chloride (Vancomycin Inj/ NS 250 ml Inj) 250 ml @ 250 mls/hr Q8H IV Last administered on 09/11/16 05:52; Start 09/09/16 at 20:00; Stop 09/11/16 at 12:58; Status DC Miscellaneous Information SPECIFIC LAB TO BE DRAWN:VANCOMYCIN TROUGH DATE TO... ONCE ONCE .XX Last administered on 09/10/16 11:27; Start 09/10/16 at 11:45; Stop 09/10/16 at 11:46; Status DC Sodium Chloride (NS 1000 ml Inj) 1,000 ml @ 999 mls/hr Q1H1M IV Last administered on 09/09/16 11:00; Start 09/09/16 at 11:45; Stop 09/09/16 at 13:45 ; Status DC Gadodiamide 20 ml 20 ml STK-MED ONCE IV Last administered on 09/09/16 16:39; Start 09/09/16 at 16:39; Stop 09/09/16 at 16:40; Status DC Phenylephrine HCl/ Dextrose (Neosynephrine Inj/D5W 500 ml Inj) 500 ml @ 0 mls/ hr TITRATE IV ; Start 09/09/16 at 18:00; Stop 09/09/16 at 18:00; Status DC Terbutaline Sulfate 1 mg 1 mg UNSCH PRN SQ FOR EXTRAVASATION PROTOCOL; Start at 18:00; Stop 09/13/16 at 08:38; Status DC Norepinephrine Bitartrate 16 mg/ Dextrose 250 ml @ 0 mls/hr TITRATE IV ; Start 09/09/16 at 18:00; Stop 09/09/16 at 18:00; Status DC Phenylephrine HCl 160 mg/Sodium Chloride 500 ml @ 0 mls/hr TITRATE IV Last administered on 09/10/16 04:52; Start 09/09/16 at 18:00; Stop 09/11/16 at 11:27 ; Status DC Norepinephrine Bitartrate/Sodium Chloride (Levophed Inj/NS 250 ml Inj) 250 ml @ 0 mls/hr TITRATE IV Last administered on 09/10/16 04:52; Start 09/09/16 at 18: 00; Stop 09/13/16 at 08:39; Status DC Aspirin (Aspirin Chew) 81 mg DAILY CHEW Last administered on 09/13/16 10:09; Start 09/10/16 at 09:00; Status Hold Artificial Tears (Tears Naturale Opth Soln) 1 drop BID EACH EYE Last administered on 09/14/16 09:42; Start 09/10/16 at 21:00 Docusate Sodium (Colace Liq) 100 mg BID PO Last administered on 09/13/16 20:13 ; Start 09/10/16 at 21:00 Midazolam HCl (Versed Inj) 5 mg STK-MED ONCE .ROUTE ; Start 09/10/16 at 09:43; Stop 09/10/16 at 09:44; Status DC Acetaminophen (Tylenol 650 Mg/ 20 ml Liq) 650 mg NOW ONCE PO Last administered on 09/10/16 11:19; Start 09/10/16 at 10:30; Stop 09/10/16 at 10:31 ; Status DC Dextrose (D50w (Syr) Inj) 50 ml STK-MED ONCE .ROUTE ; Start 09/10/16 at 12:49; Stop 09/10/16 at 12:50; Status DC Dextrose (D50w (Syr) Inj) 50 ml NOW ONCE IV PUSH Last administered on 12:45; Start 09/10/16 at 13:30; Stop 09/10/16 at 13:31; Status DC Miscellaneous Information SPECIFIC LAB TO BE DRAWN:VANCOMYCIN TROUGH DATE TO... ONCE ONCE .XX Last administered on 09/11/16 11:45; Start 09/11/16 at 11:45; Stop 09/11/16 at 11:46; Status DC Midazolam HCl (Versed Inj) 3 mg ONCE ONCE IV PUSH Last administered on 09:44; Start 09/10/16 at 14:15; Stop 09/10/16 at 14:16; Status DC Dextrose 50 ml 50 ml NOW ONCE IV PUSH Last administered on 09/10/16 16:09; Start 09/10/16 at 16:00; Stop 09/10/16 at 16:34; Status DC Sodium Chloride (NS 1000 ml Inj) 1,000 ml @ 100 mls/hr Q10H IV Last administered on 09/14/16 11:10; Start 09/11/16 at 12:00 Propranolol HCl (Inderal) 20 mg Q8HR PO Last administered on 09/12/16 04:44; Start 09/11/16 at 14:00; Stop 09/12/16 at 17:13; Status DC Magnesium Citrate (Citroma Liq) 300 ml ONCE ONCE NG ; Start 09/12/16 at 09:00; Stop 09/12/16 at 09:01; Status DC Lactulose 30 ml 30 ml QID PO Last administered on 09/13/16 10:08; Start at 09:00 Vancomycin HCl/ Sodium Chloride (Vancomycin Inj/ NS 250 ml Inj) 250 ml @ 250 mls/hr Q12H IV Last administered on 09/12/16 21:29; Start 09/12/16 at 10:00; Stop 09/13/16 at 08:39; Status DC Miscellaneous Information SPECIFIC LAB TO BE CHANDU... ONCE ONCE .XX ; Start at 09:45; Stop 09/14/16 at 09:45; Status DC Furosemide (Lasix Inj) 20 mg ONCE ONCE IV PUSH Last administered on 09/12/16 12:04; Start 09/12/16 at 09:30; Stop 09/12/16 at 09:31; Status DC Mannitol 12.5 gm 12.5 gm Q8H IV Last administered on 09/12/16 15:37; Start at 14:00; Stop 09/12/16 at 21:51; Status DC Sodium Chloride 188 meq/Sodium Chloride 1,047 ml @ 20 mls/hr Q24H IV Last administered on 09/13/16 16:06; Start 09/12/16 at 16:00 Norepinephrine Bitartrate (Levophed-Dextrose Drip) 250 ml @ 0 mls/hr TITRATE IV Last administered on 09/13/16 06:51; Start 09/12/16 at 18:00 Terbutaline Sulfate (Brethine Inj) 1 mg UNSCH PRN SQ For Extravasation; Start 09/12/16 at 18:00 Iohexol (Omnipaque 350 Inj) 30 ml STK-MED ONCE IV Last administered on 21:02; Start 09/12/16 at 21:02; Stop 09/12/16 at 21:03; Status DC Mannitol (Mannitol Inj) 12.5 gm Q8H IV Last administered on 09/13/16 06:23; Start 09/12/16 at 23:00; Stop 09/17/16 at 14:59 Potassium Bicarb/ Potassium Chloride (K-Lyte Cl Eff) 25 meq DAILY PO Last administered on 09/14/16 09:43; Start 09/13/16 at 09:00 Magnesium Citrate (Citroma Liq) 300 ml ONCE ONCE PO ; Start 09/13/16 at 08:30; Stop 09/13/16 at 08:41; Status DC Bisacodyl (Dulcolax Supp) 10 mg DAILY RECTAL Last administered on 09/13/16 10: 09; Start 09/13/16 at 09:00 Attending Statement Continue neuro checks. Anoxic encephalopathy. Poor prognosis Pulmonary. Continue mechanical ventilation. Continue aggressive pulmonary toilette, nasotracheal suction, and breathing treatments with nebulizers. Nutrition. NPO Renal. monitor closely urine output, BUN and creatinine Endocrine. Monitor serial Acu checks and SSI as needed in detail ID monitor for signs of infection Protonix for stress ulcer prophylaxis Carlitos bebeto and SCD's for DVT prophylaxis Jomar José MD Sep 14, 2016 15:32
[2016-09-14 16:02] LABS: MAGNESIUM 1.9 MG/DL (1.5-2.5); POTASSIUM 3.5 MEQ/L (3.5-5.1)
[2016-09-14] MEDS: POTASSIUM CHLOR 20 MEQ PREMIX 100 ML IV PRN ×2 (16:25→18:35)
--- NOTE | 2016-09-14 17:51 | HHI.CCPN ---
Subjective Remarks/Hospital Course 19 years old was brought in as a trauma alert. He has had to hanged herself and was found by her roommate. Unknown time of hanging. When fire department arrived patient was in asystole. CPR was started and one round of meds were given as per ACLS protocol. There was return of spontaneous circulation soon after that. Patient was brought in getting breaths by BV. She had a blood pressure and half way to arriving to the ER she started having some spontaneous respirations. She continued to be a GCS 3 when she arrived. She is admitted to critical care unit and therapeutic hypothermia protocol is initiated. SUBJ 09/08/16: Patient achieving target temperature but developing severe shock. Levothroid had been increased to 30 mcg/m Mehdi-Synephrine added. Additional fluid boluses ordered currently on bicarbonate infusion additional one amp of bicarbonate given. Chest x-ray shows severe aspiration pneumonitis predominantly right lower lobe infiltrates. Zosyn 4.5 GM IV q8 started, give single dose of vanc 09/09/16: Patient is in the rewarming phase of hypothermia protocol. Once sedation was lightened and taken off the Nimbex, patient started developing tonic-clonic generalized seizure like activity. Bolused with a total of 6 mg Ativan in divided doses and restarted on Versed and propofol infusions. Loaded with Cerebyx 1 g and scheduled at 100 mg every 8 hours. Stat EEG pending. Neurology following 09/10/16: Remains on high dose of vasopressors, MRI brain shows evidence of anoxic brain injury. MRA neck bilateral common carotid narrowing. Start on aspirin get vascular surgery consult. No further seizure-like episodes noted. Pupils are equal bilaterally with slight withdrawal of right lower extremity to central pain. 09/11/16: Currently remains off all sedation in process. No noticeable improvement in neuro status, slight withdrawal x4. Aspirin started for bilateral common carotid narrowing-vascular surgery consult appreciated. Continue Cerebyx EEG sharp activity on eeg. MRI indicates diffuse anoxic brain injury with poor prognosis. EEG bihemispheric slowing and intermittent right central posterior sharp discharges which appear to be epileptiform. Dilantin level is therapeutic 09/12/16: Overnight had episodes myoclonus versus seizures. Neuro exam remains poor. No significant improvement. Low grade fever. Remains tachypneic on the ventilator. Restart propofol for vent synchrony 09/13/16: Neuro exam remains unchanged overnight. ICP monitor placed 09/12 for cerebral edema- ICP controlled with hyperosmolar therapy. 2 episodes of seizures vs myoclonus reported. Repeat EEG today. IVC filter placed 09/12/16 evening for large IVC thrombus. Unable to anticoagulate due to thrombocytopenia , cerebral edema-high risk of bleeding Subjective: 09/14 EEG yesterday showed severe encephalopathy. ICP mainly 10-13 but intermittently spiked up to max of 22, improved with propofol bolus. Myoclonus noted with any tactile stimulation. Objective Vital Signs Date Time Temp Pulse Resp B/P Pulse Ox O2 Delivery O2 Flow Rate FiO2 09/14/16 17:01 100 40 09/14/16 16:00 99.9 104 19 134/66 Intake and Output 09/13/16 09/13/16 09/14/16 08:00 16:00 00:00 Intake Total 1676 ml 1725 ml 1589 ml Output Total 675 ml 1275 ml 825 ml Balance 1001 ml 450 ml 764 ml Result Diagram: 09/13/16 0520 09/14/16 1435 Imaging Last [address] 09/07/16 1800 Signed Impressions: Service Date/Time: Wednesday, September 07, 2016 18:06 - CONCLUSION: Normal examination. Artem Madera MD Chest X-Ray 09/07/16 1800 Signed Impressions: Service Date/Time: Wednesday, September 07, 2016 17:49 - CONCLUSION: Subtle densities in the upper lobes. Otherwise unremarkable chest. Artem Madera MD ADDENDUM: See above. Artem Madera MD Cervical Spine CT 09/07/16 1800 Signed Impressions: Service Date/Time: Wednesday, September 07, 2016 18:06 - CONCLUSION: 1. No fracture or subluxation. 2. Scattered groundglass nodules throughout the upper lobes, nonspecific but can be seen with hypersensitivity pneumonitis. Artem Madera MD Objective Remarks Drips: 2% NaCl at 20 mL per hour 0.9 NaCl at 100 L per hour Levophed on standby Propofol 50 mcg/min GENERAL: Well-nourished, well-developed patient. Comatose SKIN: Warm and dry. HEAD: Normocephalic. Pupils are 4 mm reactive to 3 mm bilaterally. EYES: No scleral icterus. No injection or drainage. NECK: Supple, trachea midline. No JVD or lymphadenopathy. Contusion anterior neck from hanging, carotids palpable CARDIOVASCULAR: Tachycardic rhythm. No murmurs. RESPIRATORY: Breath sounds equal bilaterally, intermittently tachypneic on the ventilator. Clear to auscultation anteriorly GASTROINTESTINAL: Abdomen soft, non-tender, distended. MUSCULOSKELETAL: No cyanosis, or edema. NEURO: Intubated currently on propofol + Slight corneal reflex. To central pain there is myoclonus noted with extension of BUE. A/P Assessment and Plan NEURO: Severe anoxic brain injury Bilateral common carotid narrowing Attempted suicide by hanging Seizure - MRI shows evidence of diffuse anoxic brain injury. Poor prognosis - MRI with bilateral common carotid narrowing-vascular surgery consulted, no intervention. started aspirin 09/10, now held due to thrombocytopenia - CT 09/12-cerebral edema. ICP monitor placed 09/12 with ICP 10-20 overnight. Continue mannitol and 2% saline 20 mL/hr. Target sodium 145-155. - EEG 09/10 bilateral sharp activity continue Dilantin. Level therapeutic levels. EEG 09/11 Encephalopathy, no sz. EEG 09/13severe encephalopathy. - s/p induced hypothermia. - Neurology Dr. Wong following - Toxicology negative -Propofol for sedation -Oxycodone for pain. Fentanyl prn for elevated ICP. CV: Shock resolved Status postcardiac arrest - Levophed to keep CPP 60-70 - Bedside echo with slightly reduced EF. Resp: Acute hypoxemic respiratory failure Pre-hospital Aspiration pneumonitis Acute lung injury - Intubated for airway protection, hypoxemic respiratory failure from pre hospital aspiration, now improved - PRVC, ventilator bundle. DuoNeb every 6 hours and when necessary - No vent weaning due to ICP elevation . - Patient has evidence of aspiration on admission as indicated by right lower lobe infiltrate GI: Transaminitis most likely from shock - Change Tube feedings tjo Jevity 1.5 at 50 L per hour per nutrition recommendations. - Had bowel and after mag citrate was given. -Liver ultrasound 09/12large nonocclusive thrombus and IVC. Pericholecystic fluid and gallbladder wall thickening raising possibility of cholecystitis. Gallbladder sludge present. -Followup CMP Renal: Acute kidney injury Fluid overload - IV fluid as above, Benjamin catheter, monitor BUN/creatinine ID: Septic, neurogenic shock-resolved Aspiration pneumonia, prehospital Sputum with MSSA 09/08. - Zosyn 4.5 g IV every 6 hours 09/08 #7, Temp max 100.1, may be secondary to DVT. Off vancomycin. Endo: - Electrolyte replacement per protocol - Sliding-scale insulin if needed HEME: Leukopenia, resolved and now leukocytosis Thrombocytopenia consumptive Large IVC thrombus - Leukopenia most likely from developing sepsis - Monitor CBC CMP coags - IVC filter placed 09/12 due to inability to anticoagulate (thrombocytopenia cerebral edema) - This was discussed with hematology Dr. Kwok and neurologist surgeon Dr. Davenport DVT GI prophylaxis - Chemical DVT prophylaxis once thrombocytopenia resolves and continue Pepcid Lines: - Right femoral cooling catheter and right brachial arterial line placed by Dr. England-DC both. L subclavian central line 09/10/16 #5. L radail art line 09/12/16 # 3. MRI shows evidence of anoxic brain injury. Prognosis remains poor for neurological recovery, family want to continue aggressive care for 1 week to see any improvement. Now complicated with large IVC thrombus, and cerebral edema Level 3 Followup. Cathy Clark MD Sep 14, 2016 17:51
[2016-09-14] MEDS: SODIUM CHLORIDE 23.4% INJ 188 MEQ in SODIUM CHLOR 0.9% 1000 ML INJ 1,000 ML IV SCH (19:49)
[2016-09-14] MEDS: PANTOPRAZOLE SODIUM 40 MG VIAL IVP SCH (20:02)
[2016-09-15] VITALS (18 sets, daily range): BP systolic 100–164; BP diastolic 46–74; PULSE 95–118; RESP 18–28; TEMP 98.6–102; O2SAT 94–99
[2016-09-15] MEDS: PIPERACIL-TAZO 4.5 GM PREMIX 100 ML IV SCH ×4 (00:58→20:36)
[2016-09-15] MEDS: PROPOFOL 1000 MG/100 ML IV SCH ×4 (00:59→23:07)
[2016-09-15] MEDS: CHLORHEXIDINE GLUCONATE 2 % 1 PACK (2 CLOTHS) TOP SCH (03:31)
[2016-09-15] MEDS: POTASSIUM CHLOR 40 MEQ PREMIX 100 ML IV PRN (04:38)
[2016-09-15] MEDS: FOSPHENYTOIN SODIUM 100 MG PE/2 ML VIAL IV SCH ×3 (05:15→22:48)
[2016-09-15] MEDS: SODIUM CHLOR 0.9% 1000 ML INJ 1,000 ML IV SCH ×2 (05:15→13:20)
[2016-09-15 05:21] LABS: AUTOMATED NEUTROPHIL # 4.5 TH/MM3 (1.8-7.7); BASOPHIL % 0.5 % (0.0-2.0); EOSINOPHIL # 0.3 TH/MM3 (0-0.4); EOSINOPHIL % 4.9 % (0.0-4.0); HEMATOCRIT 28.6 % (35.0-46.0); HEMO FLAGS DIFF FINAL; LYMPH % 17.6 % (9.0-44.0); LYMPHOCYTE # 1.2 TH/MM3 (1.0-4.8); MEAN CELL VOLUME 84.4 FL (80.0-100.0); MEAN CORPUSCULAR HEMOGLOBIN 27.5 PG (27.0-34.0); MEAN CORPUSCULAR HGB CONC 32.5 % (32.0-36.0); MONO % 9.6 % (0.0-8.0); NEUT % 67.4 % (16.0-70.0); PLATELET COUNT 130 TH/MM3 (150-450); RED BLOOD COUNT 3.39 MIL/MM3 (4.00-5.30); RED CELL DISTRIBUTION WIDTH 15.5 % (11.6-17.2); WHITE BLOOD COUNT 6.7 TH/MM3 (4.0-11.0)
[2016-09-15 05:39] LABS: ANION GAP 8 MEQ/L (5-15); AST (GOT) 48 U/L (16-38); BICARBONATE 24.7 MEQ/L (21.0-32.0); BLOOD UREA NITROGEN 12 MG/DL (7-18); CHLORIDE 118 MEQ/L (98-107); GLOMERULAR FILTRATION RATE 85 ML/MIN (>89); POTASSIUM 3.5 MEQ/L (3.5-5.1); SODIUM (NA) 151 MEQ/L (136-145)
[2016-09-15 05:40] LABS: ALT (GPT) 28 U/L (9-42)
[2016-09-15 05:42] LABS: ALKALINE PHOSPHATASE 63 U/L (45-117); TOTAL BILIRUBIN ADULT 0.3 MG/DL (0.2-1.0)
[2016-09-15] MEDS: MANNITOL 12.5 GM/50 ML VIAL IV SCH ×3 (06:47→22:59)
[2016-09-15] MEDS: ARTIFICIAL TEARS OPTH SOLN 15 ML BTL EACH EYE SCH ×2 (07:40→20:38)
[2016-09-15] MEDS: DOCUSATE SODIUM 100 MG/10 ML UDC PO SCH ×2 (07:40→20:38)
[2016-09-15] MEDS: POTASSIUM CHLORIDE 25 MEQ EFFERVESCENT TAB PO SCH (07:41)
[2016-09-15] MEDS: LACTULOSE SYRUP 20 GM/30 ML CUP PO SCH ×4 (07:41→20:38)
[2016-09-15] MEDS: BISACODYL 10 MG SUPP RECTAL SCH (07:41)
--- NOTE | 2016-09-15 08:38 | HHI.NSPN ---
Note Status Status: Progress Note Interval History Diagnosis anoxic encephalopathy Interval History The patient has a 20-year-old female brought in as a Trauma Alert. She was found hanging from a pull-up bar. She was in asystole at the scene, treated with epinephrine and regained a pressure after that. Initially she was unresponsive. GCS was 3. The patient has been unresponsive. There has been no seizure activity at present. 09/13. No clinical improvement. Comatose. Myoclonic jerks 09/14 has not shown any clinical improvement 09/15. Rwemains intubated and comatose without improvement Labs, Micro, & Vital Signs Results Date Time Temp Pulse Resp B/P Pulse Ox O2 Delivery O2 Flow Rate FiO2 09/15/16 07:55 97 40 09/15/16 06:00 110 09/15/16 04:30 97 40 09/15/16 04:00 40 09/15/16 04:00 116 09/15/16 04:00 99.3 116 28 148/72 99 09/15/16 02:00 104 09/15/16 01:12 98 40 09/15/16 01:12 98 40 09/15/16 00:00 40 09/15/16 00:00 114 09/15/16 00:00 100.1 114 28 132/66 98 09/14/16 22:00 112 09/14/16 21:02 28 09/14/16 20:03 99 40 09/14/16 20:00 102 09/14/16 20:00 98.9 102 24 146/72 100 09/14/16 20:00 40 09/14/16 18:00 101 09/14/16 17:01 100 40 09/14/16 16:00 40 09/14/16 16:00 99.9 104 19 134/66 97 09/14/16 16:00 101 09/14/16 15:30 100.1 09/14/16 14:00 115 09/14/16 13:39 98 40 09/14/16 12:00 105 09/14/16 12:00 99.5 104 18 132/66 98 09/14/16 12:00 40 09/14/16 10:00 96 09/14/16 08:47 98 40 09/14/16 08:47 98 40 09/15/16 07:00 Intake Total 4968 ml Output Total 2650 ml Balance 2318 ml Constitutional Vital Signs Date Time Temp Pulse Resp B/P Pulse Ox O2 Delivery O2 Flow Rate FiO2 09/15/16 07:55 97 40 09/15/16 06:00 110 09/15/16 04:30 97 40 09/15/16 04:00 40 09/15/16 04:00 116 09/15/16 04:00 99.3 116 28 148/72 99 09/15/16 02:00 104 09/15/16 01:12 98 40 09/15/16 01:12 98 40 09/15/16 00:00 40 09/15/16 00:00 114 09/15/16 00:00 100.1 114 28 132/66 98 09/14/16 22:00 112 09/14/16 21:02 28 09/14/16 20:03 99 40 09/14/16 20:00 102 09/14/16 20:00 98.9 102 24 146/72 100 09/14/16 20:00 40 09/14/16 18:00 101 09/14/16 17:01 100 40 09/14/16 16:00 40 09/14/16 16:00 99.9 104 19 134/66 97 09/14/16 16:00 101 09/14/16 15:30 100.1 09/14/16 14:00 115 09/14/16 13:39 98 40 09/14/16 12:00 105 09/14/16 12:00 99.5 104 18 132/66 98 09/14/16 12:00 40 09/14/16 10:00 96 09/14/16 08:47 98 40 09/14/16 08:47 98 40 09/15/16 07:00 Intake Total 4968 ml Output Total 2650 ml Balance 2318 ml Review of Systems/Exam Exam She is intubated and sedated. No response to pain Myoclonic jerks Cranial Nerves: Pupils 2mm, non-reactive to light. Eyes appear conjugated. There was no nystagmus, no papilledema. Face musculature appeared symmetrical at rest. Face sensation, olfaction, visual phillips, and hearing cannot be adequately assessed due to his neurological condition. The patient has a corneal reflex. SHe has no gag reflex. The sternocleidomastoid and trapezius are symmetrical. Cervical Spine: Her neck is soft, supple, without nuchal rigidity. Motor: No response to pain Reflexes: Deep tendon reflexes are trace in the biceps, triceps, and brachioradialis, bilaterally, in the upper extremities. In the lower extremities, the patellar and ankles TRACE. There is a bilateral silent response to plantar stim. There is no clonus Sensory: On examination there is no response to painful stimuli Cerebellar: Examination cannot be adequately assessed due to the patient's neurological condition. Medical Decision Making MDM Remarks Last Impressions Chest X-Ray 09/13/16 0600 Signed Impressions: Service Date/Time: Tuesday, September 13, 2016 04:49 - CONCLUSION: 1. Hazy opacity in both lungs without significant change. This may represent pulmonary edema which may be noncardiogenic. 2. Artifact projected over the right suprahilar region limiting visualization. Seth Breen MD Liver Ultrasound 09/12/16 0000 Signed Impressions: Service Date/Time: Monday, September 12, 2016 16:15 - CONCLUSION: 1. 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 2. Pericholecystic fluid and gallbladder wall thickening raising the possibility of cholecystitis. A hepatobiliary scan may be helpful to confirm cystic duct obstruction if clinically indicated. 3. Gallbladder sludge. 4. Ascites. 5. Bilateral pleural effusions. 6. Mild hepatomegaly. 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 This is nonocclusive. A retrievable IVC filter was deployed below the main hepatic veins but it was necessary to cross an accessory right hepatic vein. Jose Armando Jackson Jr., MD Head CT 09/12/16 0000 Signed Impressions: Service Date/Time: Monday, September 12, 2016 09:29 - CONCLUSION: Mild loss of lemos matter definition that can be seen with increasing intracranial pressure. Ricki Cavazos MD FACR Neck Magnetic Resonance Angiography 09/09/16 0000 Signed Impressions: Service Date/Time: August 16:02 - CONCLUSION: 1. Moderate to severe smooth narrowing of the left common carotid artery and also moderate narrowing of the proximal right common carotid artery as well as narrowing of both proximal vertebral arteries likely related to recent hanging. Etiology could be related to vasospasm or recent extrinsic prolonged compression. The distal internal carotid arteries and vertebral artery have more normal calibers. Findings called to Dr. Bhatt at the time of dictation. Gideon Brown MD Cervical Spine MRI 09/09/16 0000 Signed Impressions: Service Date/Time: August 16:02 - CONCLUSION: 1. Very minimal degenerative disc disease at C5-6. 2. No acute fracture or prevertebral soft tissue swelling. 3. No focal cervical cord abnormality. Tray Santiago MD Brain MRI 09/09/16 0000 Signed Impressions: Service Date/Time: August 16:02 - CONCLUSION: 1. Diffuse FLAIR-weighted hyperintensities involving the caudate nuclei bilaterally, bilateral hummel radiata, as well as the bilateral parietal and occipital cortex consistent with the patient's clinical diagnosis of anoxic encephalopathy. 2. No acute hemorrhage, midline shift, extra-axial fluid collection or abnormal enhancement. 3. Small fluid level within the right sphenoid sinus. Tray Santiago MD Cervical Spine CT 09/07/16 1800 Signed Impressions: Service Date/Time: Wednesday, September 07, 2016 18:06 - CONCLUSION: 1. No fracture or subluxation. 2. Scattered groundglass nodules throughout the upper lobes, nonspecific but can be seen with hypersensitivity pneumonitis. Artem Madera MD Last Impressions Chest X-Ray 09/13/16 0600 Signed Impressions: Service Date/Time: Tuesday, September 13, 2016 04:49 - CONCLUSION: 1. Hazy opacity in both lungs without significant change. This may represent pulmonary edema which may be noncardiogenic. 2. Artifact projected over the right suprahilar region limiting visualization. Seth Breen MD Liver Ultrasound 09/12/16 0000 Signed Impressions: Service Date/Time: Monday, September 12, 2016 16:15 - CONCLUSION: 1. 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 2. Pericholecystic fluid and gallbladder wall thickening raising the possibility of cholecystitis. A hepatobiliary scan may be helpful to confirm cystic duct obstruction if clinically indicated. 3. Gallbladder sludge. 4. Ascites. 5. Bilateral pleural effusions. 6. Mild hepatomegaly. 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 This is nonocclusive. A retrievable IVC filter was deployed below the main hepatic veins but it was necessary to cross an accessory right hepatic vein. Jose Armando Jackson Jr., MD Head CT 09/12/16 0000 Signed Impressions: Service Date/Time: Monday, September 12, 2016 09:29 - CONCLUSION: Mild loss of lemos matter definition that can be seen with increasing intracranial pressure. Ricki Cavazos MD FACR Neck Magnetic Resonance Angiography 09/09/16 0000 Signed Impressions: Service Date/Time: August 16:02 - CONCLUSION: 1. Moderate to severe smooth narrowing of the left common carotid artery and also moderate narrowing of the proximal right common carotid artery as well as narrowing of both proximal vertebral arteries likely related to recent hanging. Etiology could be related to vasospasm or recent extrinsic prolonged compression. The distal internal carotid arteries and vertebral artery have more normal calibers. Findings called to Dr. Bhatt at the time of dictation. Gideon Brown MD Cervical Spine MRI 09/09/16 0000 Signed Impressions: Service Date/Time: August 16:02 - CONCLUSION: 1. Very minimal degenerative disc disease at C5-6. 2. No acute fracture or prevertebral soft tissue swelling. 3. No focal cervical cord abnormality. Tray Santiago MD Brain MRI 09/09/16 0000 Signed Impressions: Service Date/Time: August 16:02 - CONCLUSION: 1. Diffuse FLAIR-weighted hyperintensities involving the caudate nuclei bilaterally, bilateral hummel radiata, as well as the bilateral parietal and occipital cortex consistent with the patient's clinical diagnosis of anoxic encephalopathy. 2. No acute hemorrhage, midline shift, extra-axial fluid collection or abnormal enhancement. 3. Small fluid level within the right sphenoid sinus. Tray Santiago MD Cervical Spine CT 09/07/16 1800 Signed Impressions: Service Date/Time: Wednesday, September 07, 2016 18:06 - CONCLUSION: 1. No fracture or subluxation. 2. Scattered groundglass nodules throughout the upper lobes, nonspecific but can be seen with hypersensitivity pneumonitis. Artem Madera MD Plan Plan Remarks Current Medications Etomidate 40 mg 40 mg STK-MED ONCE .ROUTE ; Start 09/07/16 at 17:53; Stop at 17:54; Status DC Propofol (Diprivan 1000 Mg/100ml Inj) 100 ml @ As Directed STK-MED ONCE .ROUTE ; Start 09/07/16 at 18:14; Stop 09/07/16 at 18:15; Status DC Succinylcholine Chloride 200 mg 200 mg STK-MED ONCE .ROUTE ; Start 09/07/16 at 18:38; Stop 09/07/16 at 18:39; Status DC Sodium Chloride (NS 1000 ml Inj) 1,000 ml @ 100 mls/hr Q10H IV Last administered on 09/07/16 19:30; Start 09/07/16 at 19:30; Stop 09/08/16 at 03:31 ; Status DC Sodium Chloride (NS Flush) 2 ml UNSCH PRN IV FLUSH FLUSH AFTER USING IV ACCESS ; Start 09/07/16 at 18:45; Stop 09/12/16 at 17:55; Status DC Enalaprilat (Vasotec Inj) 1.25 mg Q8H PRN IV SBP>180, DBP>95; Start 09/07/16 at 18:45 Ondansetron HCl (Zofran Inj) 4 mg Q6H PRN IV NAUSEA OR VOMITING; Start at 18:45 Pantoprazole Sodium (Protonix Inj) 40 mg Q24H IVP Last administered on 20:13; Start 09/07/16 at 20:00 Docusate Sodium (Colace) 100 mg BID PO Last administered on 09/09/16 21:33; Start 09/07/16 at 21:00; Stop 09/10/16 at 09:20; Status DC Magnesium Hydroxide (Milk Of Magnesia Liq) 30 ml Q6H PRN PO CONSTIPATION; Start 09/07/16 at 18:45 Miscellaneous Information 1 [id number] Last administered on 09/07/16 18:45; Start 09/07/16 at 18:45 Chlorhexidine Gluconate (Chlorhexidine 2% Cloth) Taper DAILY@04 TOP Last administered on 09/12/16 01:00; Start 09/08/16 at 04:00; Stop 09/04/17 at 03:59 Chlorhexidine Gluconate 3 pack 3 pack UNSCH PRN TOP HYGIENIC CARE; Start at 18:45 Propofol 100 ml @ As Directed STK-MED ONCE .ROUTE Last administered on 01:42; Start 09/07/16 at 19:20; Stop 09/07/16 at 19:21; Status DC Midazolam HCl (Versed 100 Mg/ ml Inj) 100 ml @ 0 mls/hr TITRATE IV Last administered on 09/07/16 21:33; Start 09/07/16 at 21:30; Stop 09/11/16 at 11:27 ; Status DC Lorazepam 1 mg 1 mg Q1H PRN IV SEIZURES Last administered on 09/14/16 02:45; Start 09/07/16 at 22:00 Midazolam HCl 100 ml @ 0 mls/hr TITRATE IV ; Start 09/07/16 at 22:00; Stop 09/07 at 22:00; Status DC Miscellaneous Information ml @ 0 mls/hr UNSCH IV ; Start 09/07/16 at 22:00 Sodium Chloride (NS Flush) 2 ml UNSCH PRN IV FLUSH FLUSH AFTER USING IV ACCESS ; Start 09/07/16 at 22:00 Sodium Chloride 2 ml 2 ml UNSCH PRN IV FLUSH IV FLUSH; Start 09/07/16 at 22:00 Sodium Chloride (NS 1000 ml Inj) 1,000 ml @ 2,000 mls/hr Q30M IV Last administered on 09/08/16 00:23; Start 09/07/16 at 22:00; Stop 09/07/16 at 22:59 ; Status DC Artificial Tears 1 applic 1 applic Q4H PRN EACH EYE SEE LABEL COMMENTS Last administered on 09/12/16 01:00; Start 09/07/16 at 22:00 Cisatracurium Besylate 100 mg/ Sodium Chloride 250 ml @ 0 mls/hr TITRATE PRN IV ONLY IF SHIVERING Last administered on 09/08/16 08:21; Start 09/07/16 at 21: 30; Stop 09/09/16 at 07:48; Status DC Norepinephrine Bitartrate 4 mg/ Sodium Chloride 250 ml @ 0 mls/hr TITRATE IV ; Start 09/07/16 at 21:30; Stop 09/08/16 at 12:56; Status DC Sodium Chloride 2,000 ml @ 0 mls/hr NOW IV ; Start 09/07/16 at 23:00; Stop at 23:56; Status DC Potassium Chloride 100 ml @ 50 mls/hr Q2H PRN IV For Potassium 2.8 - 3.2 mEq/ L Last administered on 09/13/16 09:02; Start 09/08/16 at 00:30 Potassium Chloride (KCl 20 Meq Premix Inj) 100 ml @ 50 mls/hr Q2H PRN IV For Potassium 2.8 - 3.2 mEq/L Last administered on 09/08/16 18:20; Start 09/08/16 at 00:30 Potassium Bicarb/ Potassium Chloride 50 meq 50 meq UNSCH PRN PO For Potassium 3.3 - 3.5 mEq/L; Start 09/08/16 at 00:30 Potassium Chloride 100 ml @ 25 mls/hr UNSCH PRN IV For Potassium 3.3 - 3.5 mEq /L Last administered on 09/09/16 10:06; Start 09/08/16 at 00:30 Potassium Chloride 100 ml @ 50 mls/hr Q2H PRN IV For Potassium 3.3 - 3.5 mEq/L ; Start 09/08/16 at 00:30 Magnesium Sulfate/ Sodium Chloride (Magnesium Sulfate Inj/NS Inj) 100 ml @ 50 mls/hr UNSCH PRN IV For Magnesium 0.9 - 1.1 mg/dL; Start 09/08/16 at 00:30 Magnesium Oxide 800 mg 800 mg UNSCH PRN PO For Magnesium 1.2 - 1.6 mg/dL; Start 09/08/16 at 00:30 Magnesium Sulfate/ Sodium Chloride (Magnesium Sulfate Inj/NS Inj) 100 ml @ 50 mls/hr UNSCH PRN IV For Magnesium 1.2 - 1.6 mg/dL Last administered on 07:11; Start 09/08/16 at 00:30 Potassium Phosphate 2000 mg 2,000 mg Q4H PRN PO For Phosphorus < 2.5 mg/dL; Start 09/08/16 at 00:30 Sodium Phosphate/ Sodium Chloride (Sodium Phosphate Inj/NS 250 ml Inj) 250 ml @ 42 mls/hr UNSCH PRN IV For Phosphorus < 2.5 mg/dL; Start 09/08/16 at 00:30 Potassium Phosphate 2000 mg 2,000 mg UNSCH PRN PO/TUBE SEE LABEL COMMENTS; Start 09/08/16 at 00:30 Potassium Phosphate 30 mmol/ Sodium Chloride 260 ml @ 42 mls/hr UNSCH PRN IV SEE LABEL COMMENTS; Start 09/08/16 at 00:30 Propofol 100 ml @ As Directed STK-MED ONCE .ROUTE ; Start 09/08/16 at 01:36; Stop 09/08/16 at 01:37; Status DC Propofol (Diprivan 1000 Mg/100ml Inj) 100 ml @ 0 mls/hr TITRATE IV Last administered on 09/14/16 11:13; Start 09/08/16 at 02:00 Vecuronium [place] 10 mg 10 mg STK-MED ONCE .ROUTE ; Start 09/08/16 at 02:33; Stop 09/08/16 at 02:34; Status DC Sodium Chloride (NS 1000 ml Inj) 1,000 ml @ 0 mls/hr NOW IV Last administered on 09/08/16 02:44; Start 09/08/16 at 02:45; Stop 09/08/16 at 03:20; Status DC Vecuronium [place] 10 mg 10 mg NOW IV Last administered on 09/08/16 02:43; Start 09/08/16 at 02:35; Stop 09/08/16 at 02:46; Status DC Sodium Bicarbonate 150 meq/Dextrose 1,150 ml @ 100 mls/hr [id number] IV Last administered on 09/08/16 03:53; Start 09/08/16 at 04:00; Stop 09/08/16 at 12:56 ; Status DC Fentanyl Citrate (fentaNYL DRIP) 250 ml @ 0 mls/hr TITRATE IV Last administered on 09/08/16 05:06; Start 09/08/16 at 05:00; Stop 09/11/16 at 11:27 ; Status DC Phenylephrine HCl (Neosynephrine Inj) 10 mg STK-MED ONCE .ROUTE ; Start at 07:00; Stop 09/08/16 at 07:02; Status DC Phenylephrine HCl 10 mg 10 mg STK-MED ONCE .ROUTE ; Start 09/08/16 at 07:06; Stop 09/08/16 at 07:07; Status DC Piperacillin Sod/ Tazobactam Sod (Zosyn 4.5 Gm Premix) 100 ml @ 200 mls/hr Q6H IV Last administered on 09/14/16 14:00; Start 09/08/16 at 08:00 Terbutaline Sulfate 1 mg 1 mg UNSCH PRN SQ For Extravasation; Start 09/08/16 at 07:30; Stop 09/08/16 at 13:02; Status DC Phenylephrine HCl 160 mg/Dextrose 500 ml @ 0 mls/hr TITRATE IV ; Start 09/08/16 at 07:30; Stop 09/08/16 at 12:57; Status DC Sodium Chloride (NS 1000 ml Inj) 1,000 ml @ 999 mls/hr BOLUS ONCE IV Last administered on 09/08/16 07:30; Start 09/08/16 at 07:30; Stop 09/08/16 at 08:30 ; Status DC Albumin Human 25 gm 25 gm ONCE ONCE IV Last administered on 09/08/16 08:05; Start 09/08/16 at 08:00; Stop 09/08/16 at 08:01; Status DC Vancomycin HCl 1000 mg/Sodium Chloride 250 ml @ 250 mls/hr ONCE ONCE IV Last administered on 09/08/16 09:01; Start 09/08/16 at 08:30; Stop 09/08/16 at 09:29 ; Status DC Sodium Bicarbonate (Sodium Bicarbonate 8.4% Inj) 50 ml @ As Directed STK-MED ONCE .ROUTE ; Start 09/08/16 at 08:49; Stop 09/08/16 at 08:50; Status DC Sodium Bicarbonate 100 meq 100 meq STAT ONCE IV Last administered on 09:00; Start 09/08/16 at 11:00; Stop 09/08/16 at 11:01; Status DC Norepinephrine Bitartrate/Sodium Chloride (Levophed Inj/NS 250 ml Inj) 250 ml @ 0 mls/hr TITRATE IV Last administered on 09/09/16 17:54; Start 09/08/16 at 13: 00; Stop 09/09/16 at 11:11; Status DC Terbutaline Sulfate 1 mg 1 mg UNSCH PRN SQ For Extravasation; Start 09/08/16 at 13:00; Stop 09/09/16 at 17:47; Status DC Sodium Bicarbonate 150 meq/Sterile Water 1,150 ml @ 150 mls/hr Q7H40M IV Last administered on 09/09/16 05:26; Start 09/08/16 at 15:00; Stop 09/09/16 at 07:47 ; Status DC Sodium Chloride 1,000 ml @ 0 mls/hr BOLUS ONCE IV Last administered on 14:00; Start 09/08/16 at 14:15; Stop 09/08/16 at 14:16; Status DC Sodium Chloride 1,000 ml @ 0 mls/hr BOLUS ONCE IV ; Start 09/08/16 at 14:30; Stop 09/08/16 at 14:31; Status Cancel Sodium Chloride (NS 1000 ml Inj) 1,000 ml @ 999 mls/hr BOLUS ONCE IV Last administered on 09/08/16 18:00; Start 09/08/16 at 18:00; Stop 09/08/16 at 19:00 ; Status DC Lorazepam (Ativan Inj) 2 mg STK-MED ONCE .ROUTE ; Start 09/09/16 at 06:53; Stop 09/09/16 at 06:54; Status DC Lorazepam (Ativan Inj) 4 mg STK-MED ONCE .ROUTE ; Start 09/09/16 at 06:57; Stop 09/09/16 at 06:58; Status DC Phenylephrine HCl (Neosynephrine Inj) 40 mg STK-MED ONCE .ROUTE ; Start at 07:33; Stop 09/09/16 at 07:34; Status DC Phenylephrine HCl 40 mg 40 mg STK-MED ONCE .ROUTE ; Start 09/09/16 at 07:34; Stop 09/09/16 at 07:35; Status DC Fosphenytoin Sodium/Sodium Chloride (Cerebyx Inj/NS Inj) 70 ml @ 280 mls/hr ONCE ONCE IV Last administered on 09/09/16 08:15; Start 09/09/16 at 09:00; Stop 09/09/16 at 09:14; Status DC Fosphenytoin Sodium (Cerebyx Inj) 100 mgpe Q8HR IV Last administered on 14:00; Start 09/09/16 at 14:00 Lorazepam 6 mg 6 mg ONCE ONCE IV Last administered on 09/09/16 07:00; Start 09/09/16 at 08:00; Stop 09/09/16 at 08:01; Status DC Phenylephrine HCl/ Dextrose (Neosynephrine Inj/D5W 500 ml Inj) 500 ml @ 0 mls/ hr TITRATE IV ; Start 09/09/16 at 09:45; Stop 09/09/16 at 09:45; Status DC Terbutaline Sulfate 1 mg 1 mg UNSCH PRN SQ FOR EXTRAVASATION PROTOCOL; Start at 09:45; Stop 09/13/16 at 08:38; Status DC Phenylephrine HCl 40 mg/Sodium Chloride 500 ml @ 0 mls/hr TITRATE IV Last administered on 09/09/16 17:55; Start 09/09/16 at 09:45; Stop 09/09/16 at 17:47 ; Status DC Vancomycin HCl 1000 mg/Sodium Chloride 250 ml @ 250 mls/hr ONCE ONCE IV Last administered on 09/09/16 11:23; Start 09/09/16 at 10:45; Stop 09/09/16 at 11:44 ; Status DC Pharmacy Profile Note 0 ml @ 0 mls/hr UNSCH OTHER ; Start 09/09/16 at 10:45; Stop 09/13/16 at 08:39; Status DC Norepinephrine Bitartrate 4 mg/ Sodium Chloride 250 ml @ 0 mls/hr TITRATE IV Last administered on 09/09/16 15:33; Start 09/09/16 at 11:15; Stop 09/09/16 at 17:47; Status DC Vancomycin HCl/ Sodium Chloride (Vancomycin Inj/ NS 250 ml Inj) 250 ml @ 250 mls/hr Q8H IV Last administered on 09/11/16 05:52; Start 09/09/16 at 20:00; Stop 09/11/16 at 12:58; Status DC Miscellaneous Information SPECIFIC LAB TO BE DRAWN:VANCOMYCIN TROUGH DATE TO... ONCE ONCE .XX Last administered on 09/10/16 11:27; Start 09/10/16 at 11:45; Stop 09/10/16 at 11:46; Status DC Sodium Chloride (NS 1000 ml Inj) 1,000 ml @ 999 mls/hr Q1H1M IV Last administered on 09/09/16 11:00; Start 09/09/16 at 11:45; Stop 09/09/16 at 13:45 ; Status DC Gadodiamide 20 ml 20 ml STK-MED ONCE IV Last administered on 09/09/16 16:39; Start 09/09/16 at 16:39; Stop 09/09/16 at 16:40; Status DC Phenylephrine HCl/ Dextrose (Neosynephrine Inj/D5W 500 ml Inj) 500 ml @ 0 mls/ hr TITRATE IV ; Start 09/09/16 at 18:00; Stop 09/09/16 at 18:00; Status DC Terbutaline Sulfate 1 mg 1 mg UNSCH PRN SQ FOR EXTRAVASATION PROTOCOL; Start at 18:00; Stop 09/13/16 at 08:38; Status DC Norepinephrine Bitartrate 16 mg/ Dextrose 250 ml @ 0 mls/hr TITRATE IV ; Start 09/09/16 at 18:00; Stop 09/09/16 at 18:00; Status DC Phenylephrine HCl 160 mg/Sodium Chloride 500 ml @ 0 mls/hr TITRATE IV Last administered on 09/10/16 04:52; Start 09/09/16 at 18:00; Stop 09/11/16 at 11:27 ; Status DC Norepinephrine Bitartrate/Sodium Chloride (Levophed Inj/NS 250 ml Inj) 250 ml @ 0 mls/hr TITRATE IV Last administered on 09/10/16 04:52; Start 09/09/16 at 18: 00; Stop 09/13/16 at 08:39; Status DC Aspirin (Aspirin Chew) 81 mg DAILY CHEW Last administered on 09/13/16 10:09; Start 09/10/16 at 09:00; Status Hold Artificial Tears (Tears Naturale Opth Soln) 1 drop BID EACH EYE Last administered on 09/14/16 09:42; Start 09/10/16 at 21:00 Docusate Sodium (Colace Liq) 100 mg BID PO Last administered on 09/13/16 20:13 ; Start 09/10/16 at 21:00 Midazolam HCl (Versed Inj) 5 mg STK-MED ONCE .ROUTE ; Start 09/10/16 at 09:43; Stop 09/10/16 at 09:44; Status DC Acetaminophen (Tylenol 650 Mg/ 20 ml Liq) 650 mg NOW ONCE PO Last administered on 09/10/16 11:19; Start 09/10/16 at 10:30; Stop 09/10/16 at 10:31 ; Status DC Dextrose (D50w (Syr) Inj) 50 ml STK-MED ONCE .ROUTE ; Start 09/10/16 at 12:49; Stop 09/10/16 at 12:50; Status DC Dextrose (D50w (Syr) Inj) 50 ml NOW ONCE IV PUSH Last administered on 12:45; Start 09/10/16 at 13:30; Stop 09/10/16 at 13:31; Status DC Miscellaneous Information SPECIFIC LAB TO BE DRAWN:VANCOMYCIN TROUGH DATE TO... ONCE ONCE .XX Last administered on 09/11/16 11:45; Start 09/11/16 at 11:45; Stop 09/11/16 at 11:46; Status DC Midazolam HCl (Versed Inj) 3 mg ONCE ONCE IV PUSH Last administered on 09:44; Start 09/10/16 at 14:15; Stop 09/10/16 at 14:16; Status DC Dextrose 50 ml 50 ml NOW ONCE IV PUSH Last administered on 09/10/16 16:09; Start 09/10/16 at 16:00; Stop 09/10/16 at 16:34; Status DC Sodium Chloride (NS 1000 ml Inj) 1,000 ml @ 100 mls/hr Q10H IV Last administered on 09/14/16 11:10; Start 09/11/16 at 12:00 Propranolol HCl (Inderal) 20 mg Q8HR PO Last administered on 09/12/16 04:44; Start 09/11/16 at 14:00; Stop 09/12/16 at 17:13; Status DC Magnesium Citrate (Citroma Liq) 300 ml ONCE ONCE NG ; Start 09/12/16 at 09:00; Stop 09/12/16 at 09:01; Status DC Lactulose 30 ml 30 ml QID PO Last administered on 09/13/16 10:08; Start at 09:00 Vancomycin HCl/ Sodium Chloride (Vancomycin Inj/ NS 250 ml Inj) 250 ml @ 250 mls/hr Q12H IV Last administered on 09/12/16 21:29; Start 09/12/16 at 10:00; Stop 09/13/16 at 08:39; Status DC Miscellaneous Information SPECIFIC LAB TO BE CHNADU... ONCE ONCE .XX ; Start at 09:45; Stop 09/14/16 at 09:45; Status DC Furosemide (Lasix Inj) 20 mg ONCE ONCE IV PUSH Last administered on 09/12/16 12:04; Start 09/12/16 at 09:30; Stop 09/12/16 at 09:31; Status DC Mannitol 12.5 gm 12.5 gm Q8H IV Last administered on 09/12/16 15:37; Start at 14:00; Stop 09/12/16 at 21:51; Status DC Sodium Chloride 188 meq/Sodium Chloride 1,047 ml @ 20 mls/hr Q24H IV Last administered on 09/13/16 16:06; Start 09/12/16 at 16:00 Norepinephrine Bitartrate (Levophed-Dextrose Drip) 250 ml @ 0 mls/hr TITRATE IV Last administered on 09/13/16 06:51; Start 09/12/16 at 18:00 Terbutaline Sulfate (Brethine Inj) 1 mg UNSCH PRN SQ For Extravasation; Start 09/12/16 at 18:00 Iohexol (Omnipaque 350 Inj) 30 ml STK-MED ONCE IV Last administered on 21:02; Start 09/12/16 at 21:02; Stop 09/12/16 at 21:03; Status DC Mannitol (Mannitol Inj) 12.5 gm Q8H IV Last administered on 09/13/16 06:23; Start 09/12/16 at 23:00; Stop 09/17/16 at 14:59 Potassium Bicarb/ Potassium Chloride (K-Lyte Cl Eff) 25 meq DAILY PO Last administered on 09/14/16 09:43; Start 09/13/16 at 09:00 Magnesium Citrate (Citroma Liq) 300 ml ONCE ONCE PO ; Start 09/13/16 at 08:30; Stop 09/13/16 at 08:41; Status DC Bisacodyl (Dulcolax Supp) 10 mg DAILY RECTAL Last administered on 09/13/16t 10: 09; Start 09/13/16 at 09:00 Attending Statement Continue neuro checks. Anoxic encephalopathy. Poor prognosis Pulmonary. Continue mechanical ventilation. Continue aggressive pulmonary toilette, nasotracheal suction, and breathing treatments with nebulizers. Nutrition. NPO Renal. monitor closely urine output, BUN and creatinine Endocrine. Monitor serial Acu checks and SSI as needed in detail ID monitor for signs of infection Protonix for stress ulcer prophylaxis Carlitos tate and SCD's for DVT prophylaxis Jomar José MD Sep 15, 2016 08:37
[2016-09-15 08:55] LABS: BLOOD GAS BASE EXCESS -1.6 mmol/L (-2-2); BLOOD GAS HCO3 23 mmol/L (22-26); BLOOD GAS METHEMOGLOBIN 0.8 % (0-2); BLOOD GAS O2 HGB SATURATION 96 % (90-100); BLOOD GAS OXYGEN CONTENT 12.6 Vol % (12.0-20.0); BLOOD GAS PCO2 38 mmHg (38-42); BLOOD GAS PO2 95 mmHg (61-120); BLOOD GAS TOTAL HGB 9.2 G/DL (12.0-16.0); CRITICAL VALUE NO; DRAW SITE ART LINE; FIO2 40 %; NUMBER OF ARTERIAL PUNCTURES 0; OXYGEN DEVICE VENTILATOR; STAT NO; TEMP CORR TO 98.6; ULNAR PULSE PRESENT; VENT SETTINGS PRVC/AC
[2016-09-15] MEDS: LORazepam 2 MG/ML VIAL IV PRN (10:30)
--- NOTE | 2016-09-15 18:24 | HHI.CCPN ---
Subjective Remarks/Hospital Course 19 years old was brought in as a trauma alert. He has had to hanged herself and was found by her roommate. Unknown time of hanging. When fire department arrived patient was in asystole. CPR was started and one round of meds were given as per ACLS protocol. There was return of spontaneous circulation soon after that. Patient was brought in getting breaths by BV. She had a blood pressure and half way to arriving to the ER she started having some spontaneous respirations. She continued to be a GCS 3 when she arrived. She is admitted to critical care unit and therapeutic hypothermia protocol is initiated. SUBJ 09/08/16: Patient achieving target temperature but developing severe shock. Levothroid had been increased to 30 mcg/m Mehdi-Synephrine added. Additional fluid boluses ordered currently on bicarbonate infusion additional one amp of bicarbonate given. Chest x-ray shows severe aspiration pneumonitis predominantly right lower lobe infiltrates. Zosyn 4.5 GM IV q8 started, give single dose of vanc 09/09/16: Patient is in the rewarming phase of hypothermia protocol. Once sedation was lightened and taken off the Nimbex, patient started developing tonic-clonic generalized seizure like activity. Bolused with a total of 6 mg Ativan in divided doses and restarted on Versed and propofol infusions. Loaded with Cerebyx 1 g and scheduled at 100 mg every 8 hours. Stat EEG pending. Neurology following 09/10/16: Remains on high dose of vasopressors, MRI brain shows evidence of anoxic brain injury. MRA neck bilateral common carotid narrowing. Start on aspirin get vascular surgery consult. No further seizure-like episodes noted. Pupils are equal bilaterally with slight withdrawal of right lower extremity to central pain. 09/11/16: Currently remains off all sedation in process. No noticeable improvement in neuro status, slight withdrawal x4. Aspirin started for bilateral common carotid narrowing-vascular surgery consult appreciated. Continue Cerebyx EEG sharp activity on eeg. MRI indicates diffuse anoxic brain injury with poor prognosis. EEG bihemispheric slowing and intermittent right central posterior sharp discharges which appear to be epileptiform. Dilantin level is therapeutic 09/12/16: Overnight had episodes myoclonus versus seizures. Neuro exam remains poor. No significant improvement. Low grade fever. Remains tachypneic on the ventilator. Restart propofol for vent synchrony 09/13/16: Neuro exam remains unchanged overnight. ICP monitor placed 09/12 for cerebral edema- ICP controlled with hyperosmolar therapy. 2 episodes of seizures vs myoclonus reported. Repeat EEG today. IVC filter placed 09/12/16 evening for large IVC thrombus. Unable to anticoagulate due to thrombocytopenia , cerebral edema-high risk of bleeding 09/14 EEG yesterday showed severe encephalopathy. ICP mainly 10-13 but intermittently spiked up to max of 22, improved with propofol bolus. Myoclonus noted with any tactile stimulation. Subjective: 09/15 Comatose with myoclonus. ICP intermittently increased to 20, sometimes drifts down without intervention, sometimes improves with sedation. Extensor posturing. Objective Vital Signs Date Time Temp Pulse Resp B/P Pulse Ox O2 Delivery O2 Flow Rate FiO2 09/15/16 18:00 99 09/15/16 16:07 97 40 09/15/16 16:00 98.6 18 134/67 Intake and Output 09/14/16 09/14/16 09/15/16 08:00 16:00 00:00 Intake Total 1620 ml 1994 ml 1455 ml Output Total 600 ml 625 ml 1075 ml Balance 1020 ml 1369 ml 380 ml Result Diagram: 09/15/16 0500 09/15/16 1415 Other Results Laboratory Tests Test 09/15/16 08:42 Blood Gas Puncture Site ART LINE Blood Gas Patient Temperature 98.6 Blood Gas HCO3 23 mmol/L (22-26) Blood Gas Base Excess -1.6 mmol/L (-2-2) Blood Gas Oxygen Saturation 96 % (90-100) Arterial Blood pH 7.40 (7.380-7.420) Arterial Blood Partial 38 mmHg (38-42) Pressure CO2 Arterial Blood Partial 95 mmHg Pressure O2 (61-120) Arterial Blood Oxygen Content 12.6 Vol % (12.0-20.0) Arterial Blood 1.0 % (0-4) Carboxyhemoglobin Arterial Blood Methemoglobin 0.8 % (0-2) Blood Gas Hemoglobin 9.2 G/DL (12.0-16.0) Oxygen Delivery Device VENTILATOR Blood Gas Ventilator Setting PRVC/AC Blood Gas Inspired Oxygen 40 % Imaging Last [address] 09/07/16 1800 Signed Impressions: Service Date/Time: Wednesday, September 07, 2016 18:06 - CONCLUSION: Normal examination. Artem Madera MD Chest X-Ray 09/07/16 1800 Signed Impressions: Service Date/Time: Wednesday, September 07, 2016 17:49 - CONCLUSION: Subtle densities in the upper lobes. Otherwise unremarkable chest. Artem Madera MD ADDENDUM: See above. Artem Madera MD Cervical Spine CT 09/07/16 1800 Signed Impressions: Service Date/Time: Wednesday, September 07, 2016 18:06 - CONCLUSION: 1. No fracture or subluxation. 2. Scattered groundglass nodules throughout the upper lobes, nonspecific but can be seen with hypersensitivity pneumonitis. Artem Madera MD Objective Remarks Drips: 2% NaCl at 20 mL per hour 0.9 NaCl at 100 L per hour--KVO Levophed 2mcg/min. Propofol 50 mcg/min GENERAL: Well-nourished, well-developed patient. Comatose SKIN: Warm and dry. HEAD: Normocephalic. Pupils are 4 mm reactive to 3 mm bilaterally. EYES: No scleral icterus. No injection or drainage. NECK: Supple, trachea midline. No JVD or lymphadenopathy. Contusion anterior neck from hanging, carotids palpable CARDIOVASCULAR: Tachycardic rhythm. No murmurs. RESPIRATORY: Breath sounds equal bilaterally, intermittently tachypneic on the ventilator. Clear to auscultation anteriorly GASTROINTESTINAL: Abdomen soft, non-tender, distended. MUSCULOSKELETAL: No cyanosis, or edema. NEURO: Intubated currently on propofol + Slight corneal reflex. To central pain there is myoclonus noted with extension of BUE. Extensor posturing all extremities. A/P Assessment and Plan NEURO: Severe anoxic brain injury Bilateral common carotid narrowing Attempted suicide by hanging Seizure - MRI shows evidence of diffuse anoxic brain injury. - MRI with bilateral common carotid narrowing-vascular surgery consulted, no intervention. started aspirin 09/10, now held due to thrombocytopenia - CT 09/12-loss salguero/white matter differentiation c/w cerebral edema. ICP monitor placed 09/12 with ICP 10-20 overnight. Stop mannitol 09/17 and 2% saline 20 mL/hr. Target sodium 145-155. - EEG 09/10 bilateral sharp activity continue Dilantin. Level therapeutic levels. EEG 09/11 Encephalopathy, no sz. EEG 09/13severe encephalopathy. - s/p induced hypothermia. - Neurology Dr. Wong following - Toxicology negative -Propofol for sedation/ICPs. -Oxycodone for pain. Fentanyl prn for elevated ICP. CV: Shock resolved Status postcardiac arrest - Levophed to keep CPP 60-70 Resp: Acute hypoxemic respiratory failure Pre-hospital Aspiration pneumonitis Acute lung injury - Intubated for airway protection, hypoxemic respiratory failure from pre hospital aspiration, now improved - PRVC, ventilator bundle. DuoNeb every 6 hours and when necessary - No vent weaning due to ICP elevation . - Patient has evidence of aspiration on admission as indicated by right lower lobe infiltrate GI: Transaminitis most likely from shock, resolved. - Change Tube feedings tjo Jevity 1.5 at 50 L per hour per nutrition recommendations. - Had bowel and after mag citrate was given. -Liver ultrasound 09/12large nonocclusive thrombus and IVC. Small Pericholecystic fluid and gallbladder wall thickening raising possibility of cholecystitis. -Followup CMP stable. Will continue clinical monitoring. Renal: Acute kidney injury Fluid overload - IV fluid as above, Benjamin catheter, monitor BUN/creatinine ID: Septic, neurogenic shock-resolved Aspiration pneumonia, prehospital Sputum with MSSA 09/08. - Zosyn 4.5 g IV every 6 hours 09/08 #8 , D/c abx. Temp max 100.1, may be secondary to DVT. Off vancomycin. Endo: - Electrolyte replacement per protocol - Sliding-scale insulin if needed HEME: Leukopenia, resolved Thrombocytopenia consumptive Large IVC thrombus - Monitor CBC CMP coags - IVC filter placed 09/12 due to inability to anticoagulate (thrombocytopenia ). Now platelets improved, if remain above 100k, will initiate lovenox if ok with NSG. - This was discussed with hematology Dr. Kwok and neurologist surgeon Dr. Davenport DVT GI prophylaxis - Chemical DVT prophylaxis start tomorrow if platelets ok. and continue Pepcid Lines: - Right femoral cooling catheter and right brachial arterial line placed by Dr. England-DC both. L subclavian central line 09/10/16 #6. L radial art line 09/12/16 # 4. MRI shows evidence of anoxic brain injury. Prognosis remains poor for neurological recovery, now complicated with large IVC thrombus, and cerebral edema. Prognosis appears poor. Consider palliative care consult. Level 3 Followup. Cathy Clark MD Sep 15, 2016 18:24 Cathy Clark MD Sep 15, 2016 18:24
--- NOTE | 2016-09-15 19:59 | HHI.PR ---
Review/Management Diagnosis Severe anoxic encephalopathy--prognosis poor Plan continue cerebyx due to the sharp activity on eeg ., although current activity is most likely myoclonus from encephalopathy and not sz. Diagnosis/Plan: Subjective Subjective Comments No acute events reported has developed tremulous activity/myoclonus RUE and BLE--stimulus sensitive. Active Medications Current Medications Medications (Trade) Dose Ordered Sig/Jenaro Route Start Time Stop Time Status Last Admin (Vasotec Inj) 1.25 mg Q8H PRN IV 09/07/16 18:45 (Zofran Inj) 4 mg Q6H PRN IV 09/07/16 18:45 (Protonix Inj) 40 mg Q24H IVP 09/07/16 20:00 09/14/16 20:02 (Milk Of Elvia Liq) 30 ml Q6H PRN PO 09/07/16 18:45 Miscellaneous Information 1 [id number] XX 09/07/16 18:45 09/07/16 18:45 (Chlorhexidine 2% Cloth) Taper DAILY@04 TOP 09/08/16 04:00 09/04/17 03:59 09/12/16 01:00 (Chlorhexidine 2% Cloth) 3 pack UNSCH PRN TOP 09/07/16 18:45 Lorazepam 1 mg 1 mg Q1H PRN IV 09/07/16 22:00 09/15/16 10:30 Miscellaneous Information ml @ 0 mls/hr UNSCH IV 09/07/16 22:00 (NS Flush) 2 ml UNSCH PRN IV FLUSH 09/07/16 22:00 (NS Flush) 2 ml UNSCH PRN IV FLUSH 09/07/16 22:00 Artificial Tears 1 applic 1 applic Q4H PRN EACH EYE 09/07/16 22:00 09/12/16 01:00 Potassium Chloride 100 ml @ 50 mls/hr Q2H PRN IV 09/08/16 00:30 09/13/16 09:02 (KCl 20 Meq Premix Inj) 100 ml @ 50 mls/hr Q2H PRN IV 09/08/16 00:30 09/08/16 18:20 Potassium Bicarb/ Potassium Chloride 50 meq 50 meq UNSCH PRN PO 09/08/16 00:30 Potassium Chloride 100 ml @ 25 mls/hr UNSCH PRN IV 09/08/16 00:30 09/15/16 04:38 Potassium Chloride 100 ml @ 50 mls/hr Q2H PRN IV 09/08/16 00:30 09/14/16 18:35 (Magnesium Sulfate Inj/NS Inj) 100 ml @ 50 mls/hr UNSCH PRN IV 09/08/16 00:30 Magnesium Oxide 800 mg 800 mg UNSCH PRN PO 09/08/16 00:30 (Magnesium Sulfate Inj/NS Inj) 100 ml @ 50 mls/hr UNSCH PRN IV 09/08/16 00:30 09/13/16 07:11 Potassium Phosphate 2000 mg 2,000 mg Q4H PRN PO 09/08/16 00:30 (Sodium Phosphate Inj/NS 250 ml Inj) 250 ml @ 42 mls/hr UNSCH PRN IV 09/08/16 00:30 Potassium Phosphate 2000 mg 2,000 mg UNSCH PRN PO/TUBE 09/08/16 00:30 Potassium Phosphate 30 mmol/ Sodium Chloride 260 ml @ 42 mls/hr UNSCH PRN IV 09/08/16 00:30 Propofol 100 ml @ 0 mls/hr TITRATE IV 09/08/16 02:00 09/15/16 18:46 (Zosyn 4.5 Gm Premix) 100 ml @ 200 mls/hr Q6H IV 09/08/16 08:00 09/16/16 06:00 09/15/16 14:18 (Cerebyx Inj) 100 mgpe Q8HR IV 09/09/16 14:00 09/15/16 14:18 (Aspirin Chew) 81 mg DAILY CHEW 09/10/16 09:00 Hold 09/13/16 10:09 (Tears Naturale Opth Soln) 1 drop BID EACH EYE 09/10/16 21:00 09/15/16 07:40 (Colace Liq) 100 mg BID PO 09/10/16 21:00 09/14/16 20:02 Lactulose 30 ml 30 ml QID PO 09/12/16 09:00 09/14/16 20:02 Sodium Chloride 188 meq/Sodium Chloride 1,047 ml @ 20 mls/hr Q24H IV 09/12/16 16:00 09/14/16 19:49 (Levophed-Dextrose Drip) 250 ml @ 0 mls/hr TITRATE IV 09/12/16 18:00 09/13/16 06:51 (Brethine Inj) 1 mg UNSCH PRN SQ 09/12/16 18:00 (Mannitol Inj) 12.5 gm Q8H IV 09/12/16 23:00 09/17/16 14:59 09/15/16 15:30 (K-Lyte Cl Eff) 25 meq DAILY PO 09/13/16 09:00 09/15/16 07:41 (Dulcolax Supp) 10 mg DAILY RECTAL 09/13/16 09:00 09/13/16 10:09 (Roxicodone) 5 mg Q6H OG-TUBE 09/14/16 20:00 09/15/16 14:18 (fentaNYL INJ) 50 mcg Q1H PRN IV PUSH 09/14/16 19:00 09/15/16 17:25 Allergies Allergies Coded Allergies No Known Allergies (Unverified09/07/16) Exam I&O / VS 09/14/16 09/14/16 09/15/16 15:00 23:00 07:00 Intake Total 1994 ml 1455 ml 1519 ml Output Total 625 ml 1075 ml 950 ml Balance 1369 ml 380 ml 569 ml Intake IV Total 1547 ml 1090 ml 1132 ml Tube Feeding 347 ml 335 ml 357 ml Tube Irrigant 100 ml 30 ml 30 ml Output Urine Total 625 ml 1025 ml 900 ml Stool Total 0 ml 50 ml 50 ml Vital Signs Date Time Temp Pulse Resp B/P Pulse Ox O2 Delivery O2 Flow Rate FiO2 09/15/16 18:25 18 09/15/16 18:00 99 09/15/16 16:07 97 40 09/15/16 16:00 98.6 98 18 134/67 97 09/15/16 16:00 40 09/15/16 16:00 104 09/15/16 15:20 18 09/15/16 14:00 96 09/15/16 12:00 99.2 106 18 100/46 96 09/15/16 12:00 95 09/15/16 12:00 40 09/15/16 11:32 97 40 09/15/16 10:00 96 09/15/16 08:00 40 09/15/16 08:00 99.6 110 18 108/56 97 09/15/16 08:00 100 09/15/16 07:55 97 40 09/15/16 06:00 110 09/15/16 04:30 97 40 09/15/16 04:00 40 09/15/16 04:00 116 09/15/16 04:00 99.3 116 28 148/72 99 09/15/16 02:00 104 09/15/16 01:12 98 40 09/15/16 01:12 98 40 09/15/16 00:00 40 09/15/16 00:00 114 09/15/16 00:00 100.1 114 28 132/66 98 09/14/16 22:00 112 09/14/16 20:03 99 40 09/14/16 20:00 102 09/14/16 20:00 98.9 102 24 146/72 100 09/14/16 20:00 40 Exam Comments does not respond to voice. She did not respond to stimuli of UE.No posturing pupils equal and sluggishly reactive has myoclonus RUE and BLE which increases with stimuli Objective Micro and Labs Laboratory Tests Test 09/14/16 09/15/16 09/15/16 09/15/16 22:00 01:00 05:00 08:42 Sodium Level 152 151 Serum Osmolality 314 312 Potassium Level 3.5 3.5 White Blood Count 6.7 Red Blood Count 3.39 Hemoglobin 9.3 Hematocrit 28.6 Mean Corpuscular Volume 84.4 Mean Corpuscular Hemoglobin 27.5 Mean Corpuscular Hemoglobin 32.5 Concent Red Cell Distribution Width 15.5 Platelet Count 130 Mean Platelet Volume 7.6 Neutrophils (%) (Auto) 67.4 Lymphocytes (%) (Auto) 17.6 Monocytes (%) (Auto) 9.6 Eosinophils (%) (Auto) 4.9 Basophils (%) (Auto) 0.5 Neutrophils # (Auto) 4.5 Lymphocytes # (Auto) 1.2 Monocytes # (Auto) 0.6 Eosinophils # (Auto) 0.3 Basophils # (Auto) 0.0 CBC Comment DIFF FINAL Differential Comment Chloride Level 118 Carbon Dioxide Level 24.7 Anion Gap 8 Blood Urea Nitrogen 12 Creatinine 0.86 Estimat Glomerular Filtration 85 Rate Random Glucose 107 Calcium Level 7.6 Total Bilirubin 0.3 Aspartate Amino Transf 48 (AST/SGOT) Alanine Aminotransferase 28 (ALT/SGPT) Alkaline Phosphatase 63 Total Protein 4.9 Albumin 1.7 Lipase 873 Blood Gas Puncture Site ART LINE Blood Gas Patient Temperature 98.6 Blood Gas HCO3 23 Blood Gas Base Excess -1.6 Blood Gas Oxygen Saturation 96 Arterial Blood pH 7.40 Arterial Blood Partial 38 Pressure CO2 Arterial Blood Partial 95 Pressure O2 Arterial Blood Oxygen Content 12.6 Arterial Blood 1.0 Carboxyhemoglobin Arterial Blood Methemoglobin 0.8 Blood Gas Hemoglobin 9.2 Oxygen Delivery Device VENTILATOR Blood Gas Ventilator Setting PRVC/AC Blood Gas Inspired Oxygen 40 Test 09/15/16 14:15 Sodium Level 151 Serum Osmolality 308 Date/Time Procedure Status Source Growth 09/10/16 21:55 Aerobic Blood Culture - Final Complete Blood Peripheral NO GROWTH IN 5 DAYS 09/10/16 21:55 Anaerobic Blood Culture - Final Complete Blood Peripheral NO GROWTH IN 5 DAYS Ham Wong PhD Sep 15, 2016 19:59
[2016-09-15] MEDS: PANTOPRAZOLE SODIUM 40 MG VIAL IVP SCH (20:36)
[2016-09-15] MEDS: ACETAMINOPHEN 325 MG TAB PO PRN (20:37)
[2016-09-16] VITALS (19 sets, daily range): BP systolic 116–132; BP diastolic 60–72; PULSE 96–122; RESP 18–25; TEMP 100–101.8; O2SAT 96–99
[2016-09-16] MEDS: PIPERACIL-TAZO 4.5 GM PREMIX 100 ML IV SCH (02:36)
[2016-09-16] MEDS: PROPOFOL 1000 MG/100 ML IV SCH ×3 (02:39→11:59)
[2016-09-16] MEDS: ACETAMINOPHEN 325 MG TAB PO PRN ×3 (03:29→16:00)
[2016-09-16] MEDS: CHLORHEXIDINE GLUCONATE 2 % 1 PACK (2 CLOTHS) TOP SCH (03:58)
[2016-09-16] MEDS: NOREPINEPHRINE-DEXTROSE DRIP 250 ML IV SCH (05:37)
[2016-09-16] MEDS: FOSPHENYTOIN SODIUM 100 MG PE/2 ML VIAL IV SCH ×3 (05:37→22:39)
[2016-09-16] MEDS: MANNITOL 12.5 GM/50 ML VIAL IV SCH ×3 (06:56→22:16)
[2016-09-16] MEDS ORDERED: TERBUTALINE INJ 1 MG/ML AMP SQ PRN (08:15)
[2016-09-16] MEDS ORDERED: NOREPINEPHRINE INJ 4 MG in SODIUM CHLOR 0.9% 250 ML INJ 246 ML IV SCH (08:15)
[2016-09-16] MEDS: LACTULOSE SYRUP 20 GM/30 ML CUP PO SCH ×4 (08:57→20:45)
[2016-09-16] MEDS: BISACODYL 10 MG SUPP RECTAL SCH (08:57)
[2016-09-16] MEDS: DOCUSATE SODIUM 100 MG/10 ML UDC PO SCH ×2 (09:00→20:45)
[2016-09-16] MEDS: POTASSIUM CHLORIDE 25 MEQ EFFERVESCENT TAB PO SCH (09:09)
[2016-09-16] MEDS: ARTIFICIAL TEARS OPTH SOLN 15 ML BTL EACH EYE SCH ×2 (09:09→20:45)
--- NOTE | 2016-09-16 14:47 | HHI.CCPN ---
Subjective Remarks/Hospital Course 19 years old was brought in as a trauma alert. He has had to hanged herself and was found by her roommate. Unknown time of hanging. When fire department arrived patient was in asystole. CPR was started and one round of meds were given as per ACLS protocol. There was return of spontaneous circulation soon after that. Patient was brought in getting breaths by BV. She had a blood pressure and half way to arriving to the ER she started having some spontaneous respirations. She continued to be a GCS 3 when she arrived. She is admitted to critical care unit and therapeutic hypothermia protocol is initiated. SUBJ 09/08/16: Patient achieving target temperature but developing severe shock. Levothroid had been increased to 30 mcg/m Mehdi-Synephrine added. Additional fluid boluses ordered currently on bicarbonate infusion additional one amp of bicarbonate given. Chest x-ray shows severe aspiration pneumonitis predominantly right lower lobe infiltrates. Zosyn 4.5 GM IV q8 started, give single dose of vanc 09/09/16: Patient is in the rewarming phase of hypothermia protocol. Once sedation was lightened and taken off the Nimbex, patient started developing tonic-clonic generalized seizure like activity. Bolused with a total of 6 mg Ativan in divided doses and restarted on Versed and propofol infusions. Loaded with Cerebyx 1 g and scheduled at 100 mg every 8 hours. Stat EEG pending. Neurology following 09/10/16: Remains on high dose of vasopressors, MRI brain shows evidence of anoxic brain injury. MRA neck bilateral common carotid narrowing. Start on aspirin get vascular surgery consult. No further seizure-like episodes noted. Pupils are equal bilaterally with slight withdrawal of right lower extremity to central pain. 09/11/16: Currently remains off all sedation in process. No noticeable improvement in neuro status, slight withdrawal x4. Aspirin started for bilateral common carotid narrowing-vascular surgery consult appreciated. Continue Cerebyx EEG sharp activity on eeg. MRI indicates diffuse anoxic brain injury with poor prognosis. EEG bihemispheric slowing and intermittent right central posterior sharp discharges which appear to be epileptiform. Dilantin level is therapeutic 09/12/16: Overnight had episodes myoclonus versus seizures. Neuro exam remains poor. No significant improvement. Low grade fever. Remains tachypneic on the ventilator. Restart propofol for vent synchrony 09/13/16: Neuro exam remains unchanged overnight. ICP monitor placed 09/12 for cerebral edema- ICP controlled with hyperosmolar therapy. 2 episodes of seizures vs myoclonus reported. Repeat EEG today. IVC filter placed 09/12/16 evening for large IVC thrombus. Unable to anticoagulate due to thrombocytopenia , cerebral edema-high risk of bleeding 09/14 EEG yesterday showed severe encephalopathy. ICP mainly 10-13 but intermittently spiked up to max of 22, improved with propofol bolus. Myoclonus noted with any tactile stimulation. 09/15 Comatose with myoclonus. ICP intermittently increased to 20, sometimes drifts down without intervention, sometimes improves with sedation. Extensor posturing. Subjective: 09/16 Off continuous sedation. Comatose with myoclonus. Corneal reflex present on left, absent on right. ICP monitor removed today per NSG. Objective Vital Signs Date Time Temp Pulse Resp B/P Pulse Ox O2 Delivery O2 Flow Rate FiO2 09/16/16 12:00 100.0 110 18 126/64 98 09/16/16 12:00 40 Intake and Output 09/15/16 09/15/16 09/16/16 08:00 16:00 00:00 Intake Total 1519 ml 1999 ml 1459 ml Output Total 950 ml 2075 ml 2000 ml Balance 569 ml -76 ml -541 ml Result Diagram: 09/15/16 0500 09/16/16 0545 Imaging Last [address] 09/07/16 1800 Signed Impressions: Service Date/Time: Wednesday, September 07, 2016 18:06 - CONCLUSION: Normal examination. Artem Madera MD Chest X-Ray 09/07/16 1800 Signed Impressions: Service Date/Time: Wednesday, September 07, 2016 17:49 - CONCLUSION: Subtle densities in the upper lobes. Otherwise unremarkable chest. Artem Madera MD ADDENDUM: See above. Artem Madera MD Cervical Spine CT 09/07/16 1800 Signed Impressions: Service Date/Time: Wednesday, September 07, 2016 18:06 - CONCLUSION: 1. No fracture or subluxation. 2. Scattered groundglass nodules throughout the upper lobes, nonspecific but can be seen with hypersensitivity pneumonitis. Artem Madera MD Objective Remarks Drips: 2% NaCl at 20 mL per hour Levophed standby Propofol off GENERAL: Well-nourished, well-developed patient. Intubated. Comatose SKIN: Warm and dry. HEAD: Normocephalic. Pupils are 4 mm reactive to 3 mm bilaterally. EYES: No scleral icterus. No injection or drainage. NECK: Supple, trachea midline. No JVD or lymphadenopathy. Contusion anterior neck from hanging, carotids palpable CARDIOVASCULAR: Tachycardic rhythm. No murmurs. RESPIRATORY: Breath sounds equal bilaterally, intermittently tachypneic on the ventilator. Clear to auscultation anteriorly GASTROINTESTINAL: Abdomen soft, non-tender, distended. MUSCULOSKELETAL: No cyanosis, 1+ edema. NEURO: Intubated, off all sedation. +pupil reflex as per above. Slight corneal reflex present on the left , absent on the right. No cough or gag. Eye movement with oculocephalic is very slight but not completely absent. No spontaneous eye opening, eye movement or tracking. General myoclonic movements. No motor response today to deep central or peripheral noxious stimuli. (previously extensor posturing) A/P Assessment and Plan Severe anoxic brain injury Bilateral common carotid narrowing Attempted suicide by hanging Seizure Depression - MRI shows evidence of diffuse anoxic brain injury. - MRI with bilateral common carotid narrowing-vascular surgery consulted, no intervention. started aspirin 09/10, held when she developed thrombocytopenia - CT 09/12-loss salguero/white matter differentiation c/w cerebral edema. ICP monitor placed 09/12 , removed 09/16. Stop mannitol 09/17 and stop 2% saline 20 mL/hr. . - EEG 09/10 bilateral sharp activity continue Dilantin. Level therapeutic 09/12. EEG 09/11 Encephalopathy, no sz. EEG 09/13severe encephalopathy. (delta waves) - s/p induced hypothermia. - Neurology Dr. Wong following. Discussed with him and he states prognosis is poor and he would agree with recommendation for comfort measures. -NSG Dr. José states poor prognosis, recommends comfort care. - Toxicology negative -Propofol for sedation/ICPs. -Oxycodone for pain. Fentanyl prn CV: Shock resolved Status postcardiac arrest - Off levophed which was used to maintain CPP Resp: Acute hypoxemic respiratory failure Pre-hospital Aspiration pneumonitis Acute lung injury - Intubated for airway protection, hypoxemic respiratory failure from pre hospital aspiration - PRVC, ventilator bundle. DuoNeb every 6 hours and when necessary - No vent weaning due to ICP elevation . - Patient has evidence of aspiration on admission as indicated by right lower lobe infiltrate GI: Transaminitis most likely from shock, resolved. - Tube feedings Jevity 1.5 at 50 L per hour per nutrition recommendations. - Had bowel and after mag citrate was given. -Liver ultrasound 09/12large nonocclusive thrombus and IVC. Small Pericholecystic fluid and gallbladder wall thickening raising possibility of cholecystitis. -Followup CMP stable. Will continue clinical monitoring. Renal: Acute kidney injury Fluid overload - IV fluid as above, Benjamin catheter, monitor BUN/creatinine ID: Septic, neurogenic shock-resolved Aspiration pneumonia, prehospital Sputum with MSSA 09/08. - Zosyn 4.5 g IV every 6 hours 09/08-09/15 #8 . Temp max 100.1, may be secondary to DVT. Off vancomycin. Endo: - Electrolyte replacement per protocol - Sliding-scale insulin if needed HEME: Leukopenia, resolved Thrombocytopenia consumptive Large IVC thrombus - Monitor CBC CMP coags. - IVC filter placed 09/12 due to inability to anticoagulate (thrombocytopenia ). - This was discussed with hematology Dr. Kwok and neurologist surgeon Dr. Davenport -Now platelets improved, consider initiation of anticoagulation. 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 Consider KP to decide upon appropriate anticoagulant if goals of care remain aggressive. DVT GI prophylaxis - IVC filter in place. Continue Pepcid Lines: - Right femoral cooling catheter and right brachial arterial line placed by Dr. England-DC both. L subclavian central line 09/10/16 #7. L radial art line 09/12/16 # 4 Findings of status myoclonus, persistent coma with extensor posturing vs absent motor response are consistent with poor prognosis for functional neurologic recovery. MRI demonstrates evidence of anoxic injury. Discussed with family poor prognosis and would expect her to require trach/PEG and be dependent for ADL in nursing facility. 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 She states that she "already had suffered plenty from her depression and psychological demons" and that she would not wish to proceed with trach/PEG. She voiced desire to ensure Aziza is not suffering and states that compassionate withdrawal is something that she feels may be in Aziza's best interest. I encouraged her to take some time to absorb all the information and think about things before she comes to a decision. She is very worried about how patient's boyfriend will be able to cope and is concerned that he may also experience suicidal thoughts. She is concerned with how best to support him. She welcomes the assistance of palliative care medicine in providing emotional support to him. Level 3 Followup. Cathy Clark MD Sep 16, 2016 14:47
--- NOTE | 2016-09-16 16:21 | HHI.NSPN ---
Note Status Status: Progress Note Interval History Diagnosis anoxic encephalopathy Interval History The patient has a 20-year-old female brought in as a Trauma Alert. She was found hanging from a pull-up bar. She was in asystole at the scene, treated with epinephrine and regained a pressure after that. Initially she was unresponsive. GCS was 3. The patient has been unresponsive. There has been no seizure activity at present. 09/13. No clinical improvement. Comatose. Myoclonic jerks 09/14 has not shown any clinical improvement 09/15. Remains intubated and comatose without improvement. Continuous myoclonic jerks 09/16. Off continuous sedation. Comatose with persistent myoclonus. Corneal reflex present on left, absent on right Labs, Micro, & Vital Signs Results Date Time Temp Pulse Resp B/P Pulse Ox O2 Delivery O2 Flow Rate FiO2 09/16/16 12:00 100.0 110 18 126/64 98 09/16/16 12:00 110 09/16/16 12:00 40 09/16/16 11:22 96 40 09/16/16 10:00 104 09/16/16 08:10 98 40 09/16/16 08:10 98 40 09/16/16 08:00 40 09/16/16 08:00 100.7 104 24 132/66 98 09/16/16 08:00 101 09/16/16 06:00 96 09/16/16 05:17 98 40 09/16/16 04:00 101.8 108 18 116/60 98 09/16/16 04:00 40 09/16/16 04:00 108 09/16/16 02:00 112 09/16/16 01:19 97 40 09/16/16 00:00 40 09/16/16 00:00 101.2 114 19 123/60 99 09/16/16 00:00 114 09/15/16 22:00 114 09/15/16 20:54 94 40 09/15/16 20:00 118 09/15/16 20:00 102.0 118 24 164/74 98 09/15/16 20:00 40 09/15/16 18:25 18 09/15/16 18:00 99 09/16/16 07:00 Intake Total 4452 ml Output Total 5950 ml Balance -1498 ml Constitutional Vital Signs Date Time Temp Pulse Resp B/P Pulse Ox O2 Delivery O2 Flow Rate FiO2 09/16/16 12:00 100.0 110 18 126/64 98 09/16/16 12:00 110 09/16/16 12:00 40 09/16/16 11:22 96 40 09/16/16 10:00 104 09/16/16 08:10 98 40 09/16/16 08:10 98 40 09/16/16 08:00 40 09/16/16 08:00 100.7 104 24 132/66 98 09/16/16 08:00 101 09/16/16 06:00 96 09/16/16 05:17 98 40 09/16/16 04:00 101.8 108 18 116/60 98 09/16/16 04:00 40 09/16/16 04:00 108 09/16/16 02:00 112 09/16/16 01:19 97 40 09/16/16 00:00 40 09/16/16 00:00 101.2 114 19 123/60 99 09/16/16 00:00 114 09/15/16 22:00 114 09/15/16 20:54 94 40 09/15/16 20:00 118 09/15/16 20:00 102.0 118 24 164/74 98 09/15/16 20:00 40 09/15/16 18:25 18 09/15/16 18:00 99 09/16/16 07:00 Intake Total 4452 ml Output Total 5950 ml Balance -1498 ml Review of Systems/Exam Exam She is intubated and sedated. No response to pain. Spontaneous Myoclonic jerks Cranial Nerves: Pupils 2mm, non-reactive to light. Eyes appear conjugated. no nystagmus, Corneal reflex present on left, absent on right Face musculature appeared symmetrical at rest. Face sensation, olfaction, visual phillips, and hearing cannot be adequately assessed due to his neurological condition. The patient has a corneal reflex. SHe has no gag reflex. The sternocleidomastoid and trapezius are symmetrical. Cervical Spine: Her neck is soft, supple, without nuchal rigidity. Motor: No response to pain Reflexes: Deep tendon reflexes are trace in the biceps, triceps, and brachioradialis, bilaterally, in the upper extremities. In the lower extremities, the patellar and ankles TRACE. There is a bilateral silent response to plantar stim. There is no clonus Sensory: On examination there is no response to painful stimuli Cerebellar: Examination cannot be adequately assessed due to the patient's neurological condition. Medications Current Medications Current Medications Etomidate 40 mg 40 mg STK-MED ONCE .ROUTE ; Start 09/07/16 at 17:53; Stop at 17:54; Status DC Propofol (Diprivan 1000 Mg/100ml Inj) 100 ml @ As Directed STK-MED ONCE .ROUTE ; Start 09/07/16 at 18:14; Stop 09/07/16 at 18:15; Status DC Succinylcholine Chloride 200 mg 200 mg STK-MED ONCE .ROUTE ; Start 09/07/16 at 18:38; Stop 09/07/16 at 18:39; Status DC Sodium Chloride (NS 1000 ml Inj) 1,000 ml @ 100 mls/hr Q10H IV Last administered on 09/07/16 19:30; Start 09/07/16 at 19:30; Stop 09/08/16 at 03:31 ; Status DC Sodium Chloride (NS Flush) 2 ml UNSCH PRN IV FLUSH FLUSH AFTER USING IV ACCESS ; Start 09/07/16 at 18:45; Stop 09/12/16 at 17:55; Status DC Enalaprilat (Vasotec Inj) 1.25 mg Q8H PRN IV SBP>180, DBP>95; Start 09/07/16 at 18:45; Stop 09/17/16 at 13:35; Status DC Ondansetron HCl (Zofran Inj) 4 mg Q6H PRN IV NAUSEA OR VOMITING; Start at 18:45 Pantoprazole Sodium (Protonix Inj) 40 mg Q24H IVP Last administered on 20:45; Start 09/07/16 at 20:00; Stop 09/17/16 at 13:35; Status DC Docusate Sodium (Colace) 100 mg BID PO Last administered on 09/09/16 21:33; Start 09/07/16 at 21:00; Stop 09/10/16 at 09:20; Status DC Magnesium Hydroxide (Milk Of Magnesia Liq) 30 ml Q6H PRN PO CONSTIPATION; Start 09/07/16 at 18:45 Miscellaneous Information 1 [id number] Last administered on 09/07/16 18:45; Start 09/07/16 at 18:45 Chlorhexidine Gluconate (Chlorhexidine 2% Cloth) Taper DAILY@04 TOP Last administered on 09/12/16 01:00; Start 09/08/16 at 04:00; Stop 09/04/17 at 03:59 Chlorhexidine Gluconate 3 pack 3 pack UNSCH PRN TOP HYGIENIC CARE; Start at 18:45 Propofol 100 ml @ As Directed STK-MED ONCE .ROUTE Last administered on 01:42; Start 09/07/16 at 19:20; Stop 09/07/16 at 19:21; Status DC Midazolam HCl (Versed 100 Mg/ ml Inj) 100 ml @ 0 mls/hr TITRATE IV Last administered on 09/07/16 21:33; Start 09/07/16 at 21:30; Stop 09/11/16 at 11:27 ; Status DC Lorazepam 1 mg 1 mg Q1H PRN IV SEIZURES Last administered on 09/17/16 16:39; Start 09/07/16 at 22:00 Midazolam HCl 100 ml @ 0 mls/hr TITRATE IV ; Start 09/07/16 at 22:00; Stop 09/07 at 22:00; Status DC Miscellaneous Information ml @ 0 mls/hr UNSCH IV ; Start 09/07/16 at 22:00 Sodium Chloride (NS Flush) 2 ml UNSCH PRN IV FLUSH FLUSH AFTER USING IV ACCESS Last administered on 09/17/16 07:57; Start 09/07/16 at 22:00 Sodium Chloride 2 ml 2 ml UNSCH PRN IV FLUSH IV FLUSH; Start 09/07/16 at 22:00 Sodium Chloride (NS 1000 ml Inj) 1,000 ml @ 2,000 mls/hr Q30M IV Last administered on 09/08/16 00:23; Start 09/07/16 at 22:00; Stop 09/07/16 at 22:59 ; Status DC Artificial Tears 1 applic 1 applic Q4H PRN EACH EYE SEE LABEL COMMENTS Last administered on 09/17/16 08:00; Start 09/07/16 at 22:00 Cisatracurium Besylate 100 mg/ Sodium Chloride 250 ml @ 0 mls/hr TITRATE PRN IV ONLY IF SHIVERING Last administered on 09/08/16 08:21; Start 09/07/16 at 21: 30; Stop 09/09/16 at 07:48; Status DC Norepinephrine Bitartrate 4 mg/ Sodium Chloride 250 ml @ 0 mls/hr TITRATE IV ; Start 09/07/16 at 21:30; Stop 09/08/16 at 12:56; Status DC Sodium Chloride 2,000 ml @ 0 mls/hr NOW IV ; Start 09/07/16 at 23:00; Stop at 23:56; Status DC Potassium Chloride 100 ml @ 50 mls/hr Q2H PRN IV For Potassium 2.8 - 3.2 mEq/ L Last administered on 09/13/16 09:02; Start 09/08/16 at 00:30 Potassium Chloride (KCl 20 Meq Premix Inj) 100 ml @ 50 mls/hr Q2H PRN IV For Potassium 2.8 - 3.2 mEq/L Last administered on 09/08/16 18:20; Start 09/08/16 at 00:30 Potassium Bicarb/ Potassium Chloride 50 meq 50 meq UNSCH PRN PO For Potassium 3.3 - 3.5 mEq/L; Start 09/08/16 at 00:30 Potassium Chloride 100 ml @ 25 mls/hr UNSCH PRN IV For Potassium 3.3 - 3.5 mEq /L Last administered on 09/15/16 04:38; Start 09/08/16 at 00:30 Potassium Chloride 100 ml @ 50 mls/hr Q2H PRN IV For Potassium 3.3 - 3.5 mEq/ L Last administered on 09/14/16 18:35; Start 09/08/16 at 00:30 Magnesium Sulfate/ Sodium Chloride (Magnesium Sulfate Inj/NS Inj) 100 ml @ 50 mls/hr UNSCH PRN IV For Magnesium 0.9 - 1.1 mg/dL; Start 09/08/16 at 00:30 Magnesium Oxide 800 mg 800 mg UNSCH PRN PO For Magnesium 1.2 - 1.6 mg/dL; Start 09/08/16 at 00:30 Magnesium Sulfate/ Sodium Chloride (Magnesium Sulfate Inj/NS Inj) 100 ml @ 50 mls/hr UNSCH PRN IV For Magnesium 1.2 - 1.6 mg/dL Last administered on 07:11; Start 09/08/16 at 00:30 Potassium Phosphate 2000 mg 2,000 mg Q4H PRN PO For Phosphorus < 2.5 mg/dL; Start 09/08/16 at 00:30 Sodium Phosphate/ Sodium Chloride (Sodium Phosphate Inj/NS 250 ml Inj) 250 ml @ 42 mls/hr UNSCH PRN IV For Phosphorus < 2.5 mg/dL; Start 09/08/16 at 00:30 Potassium Phosphate 2000 mg 2,000 mg UNSCH PRN PO/TUBE SEE LABEL COMMENTS; Start 09/08/16 at 00:30 Potassium Phosphate 30 mmol/ Sodium Chloride 260 ml @ 42 mls/hr UNSCH PRN IV SEE LABEL COMMENTS; Start 09/08/16 at 00:30 Propofol 100 ml @ As Directed STK-MED ONCE .ROUTE ; Start 09/08/16 at 01:36; Stop 09/08/16 at 01:37; Status DC Propofol (Diprivan 1000 Mg/100ml Inj) 100 ml @ 0 mls/hr TITRATE IV Last administered on 09/16/16 11:59; Start 09/08/16 at 02:00 Vecuronium Caspian 10 mg 10 mg STK-MED ONCE .ROUTE ; Start 09/08/16 at 02:33; Stop 09/08/16 at 02:34; Status DC Sodium Chloride (NS 1000 ml Inj) 1,000 ml @ 0 mls/hr NOW IV Last administered on 09/08/16 02:44; Start 09/08/16 at 02:45; Stop 09/08/16 at 03:20; Status DC Vecuronium Caspian 10 mg 10 mg NOW IV Last administered on 09/08/16 02:43; Start 09/08/16 at 02:35; Stop 09/08/16 at 02:46; Status DC Sodium Bicarbonate 150 meq/Dextrose 1,150 ml @ 100 mls/hr [id number] IV Last administered on 09/08/16 03:53; Start 09/08/16 at 04:00; Stop 09/08/16 at 12:56 ; Status DC Fentanyl Citrate (fentaNYL DRIP) 250 ml @ 0 mls/hr TITRATE IV Last administered on 09/08/16 05:06; Start 09/08/16 at 05:00; Stop 09/11/16 at 11:27 ; Status DC Phenylephrine HCl (Neosynephrine Inj) 10 mg STK-MED ONCE .ROUTE ; Start at 07:00; Stop 09/08/16 at 07:02; Status DC Phenylephrine HCl 10 mg 10 mg STK-MED ONCE .ROUTE ; Start 09/08/16 at 07:06; Stop 09/08/16 at 07:07; Status DC Piperacillin Sod/ Tazobactam Sod (Zosyn 4.5 Gm Premix) 100 ml @ 200 mls/hr Q6H IV Last administered on 09/16/16 02:36; Start 09/08/16 at 08:00; Stop 09/16/16 at 06:00; Status DC Terbutaline Sulfate 1 mg 1 mg UNSCH PRN SQ For Extravasation; Start 09/08/16 at 07:30; Stop 09/08/16 at 13:02; Status DC Phenylephrine HCl 160 mg/Dextrose 500 ml @ 0 mls/hr TITRATE IV ; Start 09/08/16 at 07:30; Stop 09/08/16 at 12:57; Status DC Sodium Chloride (NS 1000 ml Inj) 1,000 ml @ 999 mls/hr BOLUS ONCE IV Last administered on 09/08/16 07:30; Start 09/08/16 at 07:30; Stop 09/08/16 at 08:30 ; Status DC Albumin Human 25 gm 25 gm ONCE ONCE IV Last administered on 09/08/16 08:05; Start 09/08/16 at 08:00; Stop 09/08/16 at 08:01; Status DC Vancomycin HCl 1000 mg/Sodium Chloride 250 ml @ 250 mls/hr ONCE ONCE IV Last administered on 09/08/16 09:01; Start 09/08/16 at 08:30; Stop 09/08/16 at 09:29 ; Status DC Sodium Bicarbonate (Sodium Bicarbonate 8.4% Inj) 50 ml @ As Directed STK-MED ONCE .ROUTE ; Start 09/08/16 at 08:49; Stop 09/08/16 at 08:50; Status DC Sodium Bicarbonate 100 meq 100 meq STAT ONCE IV Last administered on 09:00; Start 09/08/16 at 11:00; Stop 09/08/16 at 11:01; Status DC Norepinephrine Bitartrate/Sodium Chloride (Levophed Inj/NS 250 ml Inj) 250 ml @ 0 mls/hr TITRATE IV Last administered on 09/09/16 17:54; Start 09/08/16 at 13: 00; Stop 09/09/16 at 11:11; Status DC Terbutaline Sulfate 1 mg 1 mg UNSCH PRN SQ For Extravasation; Start 09/08/16 at 13:00; Stop 09/09/16 at 17:47; Status DC Sodium Bicarbonate 150 meq/Sterile Water 1,150 ml @ 150 mls/hr Q7H40M IV Last administered on 09/09/16 05:26; Start 09/08/16 at 15:00; Stop 09/09/16 at 07:47 ; Status DC Sodium Chloride 1,000 ml @ 0 mls/hr BOLUS ONCE IV Last administered on 14:00; Start 09/08/16 at 14:15; Stop 09/08/16 at 14:16; Status DC Sodium Chloride 1,000 ml @ 0 mls/hr BOLUS ONCE IV ; Start 09/08/16 at 14:30; Stop 09/08/16 at 14:31; Status Cancel Sodium Chloride (NS 1000 ml Inj) 1,000 ml @ 999 mls/hr BOLUS ONCE IV Last administered on 09/08/16 18:00; Start 09/08/16 at 18:00; Stop 09/08/16 at 19:00 ; Status DC Lorazepam (Ativan Inj) 2 mg STK-MED ONCE .ROUTE ; Start 09/09/16 at 06:53; Stop 09/09/16 at 06:54; Status DC Lorazepam (Ativan Inj) 4 mg STK-MED ONCE .ROUTE ; Start 09/09/16 at 06:57; Stop 09/09/16 at 06:58; Status DC Phenylephrine HCl (Neosynephrine Inj) 40 mg STK-MED ONCE .ROUTE ; Start at 07:33; Stop 09/09/16 at 07:34; Status DC Phenylephrine HCl 40 mg 40 mg STK-MED ONCE .ROUTE ; Start 09/09/16 at 07:34; Stop 09/09/16 at 07:35; Status DC Fosphenytoin Sodium/Sodium Chloride (Cerebyx Inj/NS Inj) 70 ml @ 280 mls/hr ONCE ONCE IV Last administered on 09/09/16 08:15; Start 09/09/16 at 09:00; Stop 09/09/16 at 09:14; Status DC Fosphenytoin Sodium (Cerebyx Inj) 100 mgpe Q8HR IV Last administered on 13:36; Start 09/09/16 at 14:00 Lorazepam 6 mg 6 mg ONCE ONCE IV Last administered on 09/09/16 07:00; Start 09/09/16 at 08:00; Stop 09/09/16 at 08:01; Status DC Phenylephrine HCl/ Dextrose (Neosynephrine Inj/D5W 500 ml Inj) 500 ml @ 0 mls/ hr TITRATE IV ; Start 09/09/16 at 09:45; Stop 09/09/16 at 09:45; Status DC Terbutaline Sulfate 1 mg 1 mg UNSCH PRN SQ FOR EXTRAVASATION PROTOCOL; Start at 09:45; Stop 09/13/16 at 08:38; Status DC Phenylephrine HCl 40 mg/Sodium Chloride 500 ml @ 0 mls/hr TITRATE IV Last administered on 09/09/16 17:55; Start 09/09/16 at 09:45; Stop 09/09/16 at 17:47 ; Status DC Vancomycin HCl 1000 mg/Sodium Chloride 250 ml @ 250 mls/hr ONCE ONCE IV Last administered on 09/09/16 11:23; Start 09/09/16 at 10:45; Stop 09/09/16 at 11:44 ; Status DC Pharmacy Profile Note 0 ml @ 0 mls/hr UNSCH OTHER ; Start 09/09/16 at 10:45; Stop 09/13/16 at 08:39; Status DC Norepinephrine Bitartrate 4 mg/ Sodium Chloride 250 ml @ 0 mls/hr TITRATE IV Last administered on 09/09/16 15:33; Start 09/09/16 at 11:15; Stop 09/09/16 at 17:47; Status DC Vancomycin HCl/ Sodium Chloride (Vancomycin Inj/ NS 250 ml Inj) 250 ml @ 250 mls/hr Q8H IV Last administered on 09/11/16 05:52; Start 09/09/16 at 20:00; Stop 09/11/16 at 12:58; Status DC Miscellaneous Information SPECIFIC LAB TO BE DRAWN:VANCOMYCIN TROUGH DATE TO... ONCE ONCE .XX Last administered on 09/10/16 11:27; Start 09/10/16 at 11:45; Stop 09/10/16 at 11:46; Status DC Sodium Chloride (NS 1000 ml Inj) 1,000 ml @ 999 mls/hr Q1H1M IV Last administered on 09/09/16 11:00; Start 09/09/16 at 11:45; Stop 09/09/16 at 13:45 ; Status DC Gadodiamide 20 ml 20 ml STK-MED ONCE IV Last administered on 09/09/16 16:39; Start 09/09/16 at 16:39; Stop 09/09/16 at 16:40; Status DC Phenylephrine HCl/ Dextrose (Neosynephrine Inj/D5W 500 ml Inj) 500 ml @ 0 mls/ hr TITRATE IV ; Start 09/09/16 at 18:00; Stop 09/09/16 at 18:00; Status DC Terbutaline Sulfate 1 mg 1 mg UNSCH PRN SQ FOR EXTRAVASATION PROTOCOL; Start at 18:00; Stop 09/13/16 at 08:38; Status DC Norepinephrine Bitartrate 16 mg/ Dextrose 250 ml @ 0 mls/hr TITRATE IV ; Start 09/09/16 at 18:00; Stop 09/09/16 at 18:00; Status DC Phenylephrine HCl 160 mg/Sodium Chloride 500 ml @ 0 mls/hr TITRATE IV Last administered on 09/10/16 04:52; Start 09/09/16 at 18:00; Stop 09/11/16 at 11:27 ; Status DC Norepinephrine Bitartrate/Sodium Chloride (Levophed Inj/NS 250 ml Inj) 250 ml @ 0 mls/hr TITRATE IV Last administered on 09/10/16 04:52; Start 09/09/16 at 18: 00; Stop 09/13/16 at 08:39; Status DC Aspirin (Aspirin Chew) 81 mg DAILY CHEW Last administered on 09/13/16 10:09; Start 09/10/16 at 09:00; Status Hold Artificial Tears (Tears Naturale Opth Soln) 1 drop BID EACH EYE Last administered on 09/17/16 08:00; Start 09/10/16 at 21:00 Docusate Sodium (Colace Liq) 100 mg BID PO Last administered on 09/14/16 20:02 ; Start 09/10/16 at 21:00 Midazolam HCl (Versed Inj) 5 mg STK-MED ONCE .ROUTE ; Start 09/10/16 at 09:43; Stop 09/10/16 at 09:44; Status DC Acetaminophen (Tylenol 650 Mg/ 20 ml Liq) 650 mg NOW ONCE PO Last administered on 09/10/16 11:19; Start 09/10/16 at 10:30; Stop 09/10/16 at 10:31 ; Status DC Dextrose (D50w (Syr) Inj) 50 ml STK-MED ONCE .ROUTE ; Start 09/10/16 at 12:49; Stop 09/10/16 at 12:50; Status DC Dextrose (D50w (Syr) Inj) 50 ml NOW ONCE IV PUSH Last administered on 12:45; Start 09/10/16 at 13:30; Stop 09/10/16 at 13:31; Status DC Miscellaneous Information SPECIFIC LAB TO BE DRAWN:VANCOMYCIN TROUGH DATE TO... ONCE ONCE .XX Last administered on 09/11/16 11:45; Start 09/11/16 at 11:45; Stop 09/11/16 at 11:46; Status DC Midazolam HCl (Versed Inj) 3 mg ONCE ONCE IV PUSH Last administered on 09:44; Start 09/10/16 at 14:15; Stop 09/10/16 at 14:16; Status DC Dextrose 50 ml 50 ml NOW ONCE IV PUSH Last administered on 09/10/16 16:09; Start 09/10/16 at 16:00; Stop 09/10/16 at 16:34; Status DC Sodium Chloride (NS 1000 ml Inj) 1,000 ml @ 100 mls/hr Q10H IV Last administered on 09/15/16 13:20; Start 09/11/16 at 12:00; Stop 09/15/16 at 19:09; Status DC Propranolol HCl (Inderal) 20 mg Q8HR PO Last administered on 09/12/16 04:44; Start 09/11/16 at 14:00; Stop 09/12/16 at 17:13; Status DC Magnesium Citrate (Citroma Liq) 300 ml ONCE ONCE NG ; Start 09/12/16 at 09:00; Stop 09/12/16 at 09:01; Status DC Lactulose 30 ml 30 ml QID PO Last administered on 09/14/16 20:02; Start at 09:00 Vancomycin HCl/ Sodium Chloride (Vancomycin Inj/ NS 250 ml Inj) 250 ml @ 250 mls/hr Q12H IV Last administered on 09/12/16 21:29; Start 09/12/16 at 10:00; Stop 09/13/16 at 08:39; Status DC Miscellaneous Information SPECIFIC LAB TO BE CHANDU... ONCE ONCE .XX ; Start at 09:45; Stop 09/14/16 at 09:45; Status DC Furosemide (Lasix Inj) 20 mg ONCE ONCE IV PUSH Last administered on 09/12/16 12:04; Start 09/12/16 at 09:30; Stop 09/12/16 at 09:31; Status DC Mannitol 12.5 gm 12.5 gm Q8H IV Last administered on 09/12/16 15:37; Start at 14:00; Stop 09/12/16 at 21:51; Status DC Sodium Chloride 188 meq/Sodium Chloride 1,047 ml @ 20 mls/hr Q24H IV Last administered on 09/14/16 19:49; Start 09/12/16 at 16:00; Stop 09/16/16 at 15:33; Status DC Norepinephrine Bitartrate (Levophed-Dextrose Drip) 250 ml @ 0 mls/hr TITRATE IV Last administered on 09/16/16 05:37; Start 09/12/16 at 18:00; Stop 09/16/16 at 08:02; Status DC Terbutaline Sulfate (Brethine Inj) 1 mg UNSCH PRN SQ For Extravasation; Start 09/12/16 at 18:00; Stop 09/16/16 at 08:02; Status DC Iohexol (Omnipaque 350 Inj) 30 ml STK-MED ONCE IV Last administered on 21:02; Start 09/12/16 at 21:02; Stop 09/12/16 at 21:03; Status DC Mannitol (Mannitol Inj) 12.5 gm Q8H IV Last administered on 09/16/16 06:56; Start 09/12/16 at 23:00; Stop 09/17/16 at 04:13; Status DC Potassium Bicarb/ Potassium Chloride (K-Lyte Cl Eff) 25 meq DAILY PO Last administered on 09/17/16 07:56; Start 09/13/16 at 09:00 Magnesium Citrate (Citroma Liq) 300 ml ONCE ONCE PO ; Start 09/13/16 at 08:30; Stop 09/13/16 at 08:41; Status DC Bisacodyl (Dulcolax Supp) 10 mg DAILY RECTAL Last administered on 09/13/16 10: 09; Start 09/13/16 at 09:00 Oxycodone HCl (Roxicodone) 5 mg Q6H OG-TUBE Last administered on 09/17/16 13:36 ; Start 09/14/16 at 20:00 Fentanyl Citrate (fentaNYL INJ) 100 mcg ONCE ONCE IV PUSH ; Start 09/14/16 at 20 :00; Stop 09/14/16 at 20:01; Status DC Fentanyl Citrate (fentaNYL INJ) 50 mcg Q1H PRN IV PUSH PAIN, ICP >20 Last administered on 09/17/16 16:38; Start 09/14/16 at 19:00 Acetaminophen 650 mg 650 mg Q4H PRN PO FEVER Last administered on 09/17/16 08: 04; Start 09/15/16 at 20:30 Norepinephrine Bitartrate/Sodium Chloride (Levophed Inj/NS 250 ml Inj) 250 ml @ 0 mls/hr TITRATE IV Last administered on 09/16/16 09:11; Start 09/16/16 at 08:15 ; Stop 09/16/16 at 15:33; Status DC Terbutaline Sulfate (Brethine Inj) 1 mg UNSCH PRN SQ For Extravasation; Start 09/16/16 at 08:15; Stop 09/17/16 at 13:35; Status DC Pantoprazole Sodium (Protonix) 40 mg DAILY PO ; Start 09/18/16 at 09:00 Furosemide (Lasix Inj) 20 mg ONCE ONCE IV PUSH Last administered on 09/17/16 14:30; Start 09/17/16 at 13:30; Stop 09/17/16 at 13:42; Status DC Cisatracurium Besylate (Nimbex Inj) 20 mg ONCE ONCE IV Last administered on 14:30; Start 09/17/16 at 13:30; Stop 09/17/16 at 13:43; Status DC Midazolam HCl (Versed Inj) 10 mg ONCE ONCE IV PUSH Last administered on 14:53; Start 09/17/16 at 13:30; Stop 09/17/16 at 13:44; Status DC Fentanyl Citrate 250 mcg 250 mcg ONCE ONCE IV PUSH Last administered on 13:30; Start 09/17/16 at 13:30; Stop 09/17/16 at 13:42; Status DC Cefazolin Sodium/ Sodium Chloride (Ancef Inj/NS Inj) 100 ml @ 200 mls/hr TRACK REPAIR PERSON IV ; Start 09/20/16 at 16:00; Stop 09/23/16 at 15:59 Medical Decision Making MDM Remarks Last Impressions Liver Ultrasound 09/12/16 0000 Signed Impressions: Service Date/Time: Monday, September 12, 2016 16:15 - CONCLUSION: 1. 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 2. Pericholecystic fluid and gallbladder wall thickening raising the possibility of cholecystitis. A hepatobiliary scan may be helpful to confirm cystic duct obstruction if clinically indicated. 3. Gallbladder sludge. 4. Ascites. 5. Bilateral pleural effusions. 6. Mild hepatomegaly. 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 This is nonocclusive. A retrievable IVC filter was deployed below the main hepatic veins but it was necessary to cross an accessory right hepatic vein. Jose Armando Jackson Jr., MD Head CT 09/12/16 0000 Signed Impressions: Service Date/Time: Monday, September 12, 2016 09:29 - CONCLUSION: Mild loss of lemos matter definition that can be seen with increasing intracranial pressure. Ricki Cavazos MD FACR Neck Magnetic Resonance Angiography 09/09/16 0000 Signed Impressions: Service Date/Time: August 16:02 - CONCLUSION: 1. Moderate to severe smooth narrowing of the left common carotid artery and also moderate narrowing of the proximal right common carotid artery as well as narrowing of both proximal vertebral arteries likely related to recent hanging. Etiology could be related to vasospasm or recent extrinsic prolonged compression. The distal internal carotid arteries and vertebral artery have more normal calibers. Findings called to Dr. Bhatt at the time of dictation. Gideon Brown MD Cervical Spine MRI 09/09/16 0000 Signed Impressions: Service Date/Time: August 16:02 - CONCLUSION: 1. Very minimal degenerative disc disease at C5-6. 2. No acute fracture or prevertebral soft tissue swelling. 3. No focal cervical cord abnormality. Tray Santiago MD Brain MRI 09/09/16 0000 Signed Impressions: Service Date/Time: August 16:02 - CONCLUSION: 1. Diffuse FLAIR-weighted hyperintensities involving the caudate nuclei bilaterally, bilateral hummel radiata, as well as the bilateral parietal and occipital cortex consistent with the patient's clinical diagnosis of anoxic encephalopathy. 2. No acute hemorrhage, midline shift, extra-axial fluid collection or abnormal enhancement. 3. Small fluid level within the right sphenoid sinus. Tray Santiago MD Cervical Spine CT 09/07/16 1800 Signed Impressions: Service Date/Time: Wednesday, September 07, 2016 18:06 - CONCLUSION: 1. No fracture or subluxation. 2. Scattered groundglass nodules throughout the upper lobes, nonspecific but can be seen with hypersensitivity pneumonitis. Artem Madera MD Last Impressions Chest X-Ray 09/13/16 0600 Signed Impressions: Service Date/Time: Tuesday, September 13, 2016 04:49 - CONCLUSION: 1. Hazy opacity in both lungs without significant change. This may represent pulmonary edema which may be noncardiogenic. 2. Artifact projected over the right suprahilar region limiting visualization. Seth Breen MD Liver Ultrasound 09/12/16 0000 Signed Impressions: Service Date/Time: Monday, September 12, 2016 16:15 - CONCLUSION: 1. 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 2. Pericholecystic fluid and gallbladder wall thickening raising the possibility of cholecystitis. A hepatobiliary scan may be helpful to confirm cystic duct obstruction if clinically indicated. 3. Gallbladder sludge. 4. Ascites. 5. Bilateral pleural effusions. 6. Mild hepatomegaly. 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 This is nonocclusive. A retrievable IVC filter was deployed below the main hepatic veins but it was necessary to cross an accessory right hepatic vein. Jose Armando Jackson Jr., MD Head CT 09/12/16 Signed Impressions: Service Date/Time: Monday, September 12, 2016 09:29 - CONCLUSION: Mild loss of lemos matter definition that can be seen with increasing intracranial pressure. Ricki Cavazos MD FACR Neck Magnetic Resonance Angiography 09/09/16 Signed Impressions: Service Date/Time: August 16:02 - CONCLUSION: 1. Moderate to severe smooth narrowing of the left common carotid artery and also moderate narrowing of the proximal right common carotid artery as well as narrowing of both proximal vertebral arteries likely related to recent hanging. Etiology could be related to vasospasm or recent extrinsic prolonged compression. The distal internal carotid arteries and vertebral artery have more normal calibers. Findings called to Dr. Bhatt at the time of dictation. Gideon Brown MD Cervical Spine MRI 09/09/16 Signed Impressions: Service Date/Time: August 16:02 - CONCLUSION: 1. Very minimal degenerative disc disease at C5-6. 2. No acute fracture or prevertebral soft tissue swelling. 3. No focal cervical cord abnormality. Tray Santiago MD Brain MRI 09/09/16 Signed Impressions: Service Date/Time: August 16:02 - CONCLUSION: 1. Diffuse FLAIR-weighted hyperintensities involving the caudate nuclei bilaterally, bilateral hummel radiata, as well as the bilateral parietal and occipital cortex consistent with the patient's clinical diagnosis of anoxic encephalopathy. 2. No acute hemorrhage, midline shift, extra-axial fluid collection or abnormal enhancement. 3. Small fluid level within the right sphenoid sinus. Tray Santiago MD Cervical Spine CT 09/07/16 1800 Signed Impressions: Service Date/Time: Wednesday, September 07, 2016 18:06 - CONCLUSION: 1. No fracture or subluxation. 2. Scattered groundglass nodules throughout the upper lobes, nonspecific but can be seen with hypersensitivity pneumonitis. Artem Madera MD Last Impressions Chest X-Ray 09/13/16 0600 Signed Impressions: Service Date/Time: Tuesday, September 13, 2016 04:49 - CONCLUSION: 1. Hazy opacity in both lungs without significant change. This may represent pulmonary edema which may be noncardiogenic. 2. Artifact projected over the right suprahilar region limiting visualization. Seth Breen MD Liver Ultrasound 09/12/16 0000 Signed Impressions: Service Date/Time: Monday, September 12, 2016 16:15 - CONCLUSION: 1. 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 2. Pericholecystic fluid and gallbladder wall thickening raising the possibility of cholecystitis. A hepatobiliary scan may be helpful to confirm cystic duct obstruction if clinically indicated. 3. Gallbladder sludge. 4. Ascites. 5. Bilateral pleural effusions. 6. Mild hepatomegaly. 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 This is nonocclusive. A retrievable IVC filter was deployed below the main hepatic veins but it was necessary to cross an accessory right hepatic vein. Jose Armando Jackson Jr., MD Head CT 09/12/16 0000 Signed Impressions: Service Date/Time: Monday, September 12, 2016 09:29 - CONCLUSION: Mild loss of lemos matter definition that can be seen with increasing intracranial pressure. Ricki Cavazos MD FACR Neck Magnetic Resonance Angiography 09/09/16 0000 Signed Impressions: Service Date/Time: August 16:02 - CONCLUSION: 1. Moderate to severe smooth narrowing of the left common carotid artery and also moderate narrowing of the proximal right common carotid artery as well as narrowing of both proximal vertebral arteries likely related to recent hanging. Etiology could be related to vasospasm or recent extrinsic prolonged compression. The distal internal carotid arteries and vertebral artery have more normal calibers. Findings called to Dr. Bhatt at the time of dictation. Gideon Brown MD Cervical Spine MRI 09/09/16 0000 Signed Impressions: Service Date/Time: August 16:02 - CONCLUSION: 1. Very minimal degenerative disc disease at C5-6. 2. No acute fracture or prevertebral soft tissue swelling. 3. No focal cervical cord abnormality. Tray Santiago MD Brain MRI 09/09/16 0000 Signed Impressions: Service Date/Time: August 16:02 - CONCLUSION: 1. Diffuse FLAIR-weighted hyperintensities involving the caudate nuclei bilaterally, bilateral hummel radiata, as well as the bilateral parietal and occipital cortex consistent with the patient's clinical diagnosis of anoxic encephalopathy. 2. No acute hemorrhage, midline shift, extra-axial fluid collection or abnormal enhancement. 3. Small fluid level within the right sphenoid sinus. Tray Santiago MD Cervical Spine CT 09/07/16 1800 Signed Impressions: Service Date/Time: Wednesday, September 07, 2016 18:06 - CONCLUSION: 1. No fracture or subluxation. 2. Scattered groundglass nodules throughout the upper lobes, nonspecific but can be seen with hypersensitivity pneumonitis. Artem Madera MD Plan Plan Remarks Current Medications Etomidate 40 mg 40 mg STK-MED ONCE .ROUTE ; Start 09/07/16 at 17:53; Stop at 17:54; Status DC Propofol (Diprivan 1000 Mg/100ml Inj) 100 ml @ As Directed STK-MED ONCE .ROUTE ; Start 09/07/16 at 18:14; Stop 09/07/16 at 18:15; Status DC Succinylcholine Chloride 200 mg 200 mg STK-MED ONCE .ROUTE ; Start 09/07/16 at 18:38; Stop 09/07/16 at 18:39; Status DC Sodium Chloride (NS 1000 ml Inj) 1,000 ml @ 100 mls/hr Q10H IV Last administered on 09/07/16t 19:30; Start 09/07/16 at 19:30; Stop 09/08/16 at 03:31 ; Status DC Sodium Chloride (NS Flush) 2 ml UNSCH PRN IV FLUSH FLUSH AFTER USING IV ACCESS ; Start 09/07/16 at 18:45; Stop 09/12/16 at 17:55; Status DC Enalaprilat (Vasotec Inj) 1.25 mg Q8H PRN IV SBP>180, DBP>95; Start 09/07/16 at 18:45 Ondansetron HCl (Zofran Inj) 4 mg Q6H PRN IV NAUSEA OR VOMITING; Start at 18:45 Pantoprazole Sodium (Protonix Inj) 40 mg Q24H IVP Last administered on 20:13; Start 09/07/16 at 20:00 Docusate Sodium (Colace) 100 mg BID PO Last administered on 09/09/16 21:33; Start 09/07/16 at 21:00; Stop 09/10/16 at 09:20; Status DC Magnesium Hydroxide (Milk Of Magnesia Liq) 30 ml Q6H PRN PO CONSTIPATION; Start 09/07/16 at 18:45 Miscellaneous Information 1 [id number] Last administered on 09/07/16 18:45; Start 09/07/16 at 18:45 Chlorhexidine Gluconate (Chlorhexidine 2% Cloth) Taper DAILY@04 TOP Last administered on 09/12/16 01:00; Start 09/08/16 at 04:00; Stop 09/04/17 at 03:59 Chlorhexidine Gluconate 3 pack 3 pack UNSCH PRN TOP HYGIENIC CARE; Start at 18:45 Propofol 100 ml @ As Directed STK-MED ONCE .ROUTE Last administered on 01:42; Start 09/07/16 at 19:20; Stop 09/07/16 at 19:21; Status DC Midazolam HCl (Versed 100 Mg/ ml Inj) 100 ml @ 0 mls/hr TITRATE IV Last administered on 09/07/16 21:33; Start 09/07/16 at 21:30; Stop 09/11/16 at 11:27 ; Status DC Lorazepam 1 mg 1 mg Q1H PRN IV SEIZURES Last administered on 09/14/16 02:45; Start 09/07/16 at 22:00 Midazolam HCl 100 ml @ 0 mls/hr TITRATE IV ; Start 09/07/16 at 22:00; Stop 09/07 at 22:00; Status DC Miscellaneous Information ml @ 0 mls/hr UNSCH IV ; Start 09/07/16 at 22:00 Sodium Chloride (NS Flush) 2 ml UNSCH PRN IV FLUSH FLUSH AFTER USING IV ACCESS ; Start 09/07/16 at 22:00 Sodium Chloride 2 ml 2 ml UNSCH PRN IV FLUSH IV FLUSH; Start 09/07/16 at 22:00 Sodium Chloride (NS 1000 ml Inj) 1,000 ml @ 2,000 mls/hr Q30M IV Last administered on 09/08/16 00:23; Start 09/07/16 at 22:00; Stop 09/07/16 at 22:59 ; Status DC Artificial Tears 1 applic 1 applic Q4H PRN EACH EYE SEE LABEL COMMENTS Last administered on 09/12/16 01:00; Start 09/07/16 at 22:00 Cisatracurium Besylate 100 mg/ Sodium Chloride 250 ml @ 0 mls/hr TITRATE PRN IV ONLY IF SHIVERING Last administered on 09/08/16 08:21; Start 09/07/16 at 21: 30; Stop 09/09/16 at 07:48; Status DC Norepinephrine Bitartrate 4 mg/ Sodium Chloride 250 ml @ 0 mls/hr TITRATE IV ; Start 09/07/16 at 21:30; Stop 09/08/16 at 12:56; Status DC Sodium Chloride 2,000 ml @ 0 mls/hr NOW IV ; Start 09/07/16 at 23:00; Stop at 23:56; Status DC Potassium Chloride 100 ml @ 50 mls/hr Q2H PRN IV For Potassium 2.8 - 3.2 mEq/ L Last administered on 09/13/16 09:02; Start 09/08/16 at 00:30 Potassium Chloride (KCl 20 Meq Premix Inj) 100 ml @ 50 mls/hr Q2H PRN IV For Potassium 2.8 - 3.2 mEq/L Last administered on 09/08/16 18:20; Start 09/08/16 at 00:30 Potassium Bicarb/ Potassium Chloride 50 meq 50 meq UNSCH PRN PO For Potassium 3.3 - 3.5 mEq/L; Start 09/08/16 at 00:30 Potassium Chloride 100 ml @ 25 mls/hr UNSCH PRN IV For Potassium 3.3 - 3.5 mEq /L Last administered on 09/09/16 10:06; Start 09/08/16 at 00:30 Potassium Chloride 100 ml @ 50 mls/hr Q2H PRN IV For Potassium 3.3 - 3.5 mEq/L ; Start 09/08/16 at 00:30 Magnesium Sulfate/ Sodium Chloride (Magnesium Sulfate Inj/NS Inj) 100 ml @ 50 mls/hr UNSCH PRN IV For Magnesium 0.9 - 1.1 mg/dL; Start 09/08/16 at 00:30 Magnesium Oxide 800 mg 800 mg UNSCH PRN PO For Magnesium 1.2 - 1.6 mg/dL; Start 09/08/16 at 00:30 Magnesium Sulfate/ Sodium Chloride (Magnesium Sulfate Inj/NS Inj) 100 ml @ 50 mls/hr UNSCH PRN IV For Magnesium 1.2 - 1.6 mg/dL Last administered on 07:11; Start 09/08/16 at 00:30 Potassium Phosphate 2000 mg 2,000 mg Q4H PRN PO For Phosphorus < 2.5 mg/dL; Start 09/08/16 at 00:30 Sodium Phosphate/ Sodium Chloride (Sodium Phosphate Inj/NS 250 ml Inj) 250 ml @ 42 mls/hr UNSCH PRN IV For Phosphorus < 2.5 mg/dL; Start 09/08/16 at 00:30 Potassium Phosphate 2000 mg 2,000 mg UNSCH PRN PO/TUBE SEE LABEL COMMENTS; Start 09/08/16 at 00:30 Potassium Phosphate 30 mmol/ Sodium Chloride 260 ml @ 42 mls/hr UNSCH PRN IV SEE LABEL COMMENTS; Start 09/08/16 at 00:30 Propofol 100 ml @ As Directed STK-MED ONCE .ROUTE ; Start 09/08/16 at 01:36; Stop 09/08/16 at 01:37; Status DC Propofol (Diprivan 1000 Mg/100ml Inj) 100 ml @ 0 mls/hr TITRATE IV Last administered on 09/14/16 11:13; Start 09/08/16 at 02:00 Vecuronium Caspian 10 mg 10 mg STK-MED ONCE .ROUTE ; Start 09/08/16 at 02:33; Stop 09/08/16 at 02:34; Status DC Sodium Chloride (NS 1000 ml Inj) 1,000 ml @ 0 mls/hr NOW IV Last administered on 09/08/16 02:44; Start 09/08/16 at 02:45; Stop 09/08/16 at 03:20; Status DC Vecuronium Caspian 10 mg 10 mg NOW IV Last administered on 09/08/16 02:43; Start 09/08/16 at 02:35; Stop 09/08/16 at 02:46; Status DC Sodium Bicarbonate 150 meq/Dextrose 1,150 ml @ 100 mls/hr [id number] IV Last administered on 09/08/16 03:53; Start 09/08/16 at 04:00; Stop 09/08/16 at 12:56 ; Status DC Fentanyl Citrate (fentaNYL DRIP) 250 ml @ 0 mls/hr TITRATE IV Last administered on 09/08/16 05:06; Start 09/08/16 at 05:00; Stop 09/11/16 at 11:27 ; Status DC Phenylephrine HCl (Neosynephrine Inj) 10 mg STK-MED ONCE .ROUTE ; Start at 07:00; Stop 09/08/16 at 07:02; Status DC Phenylephrine HCl 10 mg 10 mg STK-MED ONCE .ROUTE ; Start 09/08/16 at 07:06; Stop 09/08/16 at 07:07; Status DC Piperacillin Sod/ Tazobactam Sod (Zosyn 4.5 Gm Premix) 100 ml @ 200 mls/hr Q6H IV Last administered on 09/14/16 14:00; Start 09/08/16 at 08:00 Terbutaline Sulfate 1 mg 1 mg UNSCH PRN SQ For Extravasation; Start 09/08/16 at 07:30; Stop 09/08/16 at 13:02; Status DC Phenylephrine HCl 160 mg/Dextrose 500 ml @ 0 mls/hr TITRATE IV ; Start 09/08/16 at 07:30; Stop 09/08/16 at 12:57; Status DC Sodium Chloride (NS 1000 ml Inj) 1,000 ml @ 999 mls/hr BOLUS ONCE IV Last administered on 09/08/16 07:30; Start 09/08/16 at 07:30; Stop 09/08/16 at 08:30 ; Status DC Albumin Human 25 gm 25 gm ONCE ONCE IV Last administered on 09/08/16 08:05; Start 09/08/16 at 08:00; Stop 09/08/16 at 08:01; Status DC Vancomycin HCl 1000 mg/Sodium Chloride 250 ml @ 250 mls/hr ONCE ONCE IV Last administered on 09/08/16 09:01; Start 09/08/16 at 08:30; Stop 09/08/16 at 09:29 ; Status DC Sodium Bicarbonate (Sodium Bicarbonate 8.4% Inj) 50 ml @ As Directed STK-MED ONCE .ROUTE ; Start 09/08/16 at 08:49; Stop 09/08/16 at 08:50; Status DC Sodium Bicarbonate 100 meq 100 meq STAT ONCE IV Last administered on 09:00; Start 09/08/16 at 11:00; Stop 09/08/16 at 11:01; Status DC Norepinephrine Bitartrate/Sodium Chloride (Levophed Inj/NS 250 ml Inj) 250 ml @ 0 mls/hr TITRATE IV Last administered on 09/09/16 17:54; Start 09/08/16 at 13: 00; Stop 09/09/16 at 11:11; Status DC Terbutaline Sulfate 1 mg 1 mg UNSCH PRN SQ For Extravasation; Start 09/08/16 at 13:00; Stop 09/09/16 at 17:47; Status DC Sodium Bicarbonate 150 meq/Sterile Water 1,150 ml @ 150 mls/hr Q7H40M IV Last administered on 09/09/16 05:26; Start 09/08/16 at 15:00; Stop 09/09/16 at 07:47 ; Status DC Sodium Chloride 1,000 ml @ 0 mls/hr BOLUS ONCE IV Last administered on 14:00; Start 09/08/16 at 14:15; Stop 09/08/16 at 14:16; Status DC Sodium Chloride 1,000 ml @ 0 mls/hr BOLUS ONCE IV ; Start 09/08/16 at 14:30; Stop 09/08/16 at 14:31; Status Cancel Sodium Chloride (NS 1000 ml Inj) 1,000 ml @ 999 mls/hr BOLUS ONCE IV Last administered on 09/08/16 18:00; Start 09/08/16 at 18:00; Stop 09/08/16 at 19:00 ; Status DC Lorazepam (Ativan Inj) 2 mg STK-MED ONCE .ROUTE ; Start 09/09/16 at 06:53; Stop 09/09/16 at 06:54; Status DC Lorazepam (Ativan Inj) 4 mg STK-MED ONCE .ROUTE ; Start 09/09/16 at 06:57; Stop 09/09/16 at 06:58; Status DC Phenylephrine HCl (Neosynephrine Inj) 40 mg STK-MED ONCE .ROUTE ; Start at 07:33; Stop 09/09/16 at 07:34; Status DC Phenylephrine HCl 40 mg 40 mg STK-MED ONCE .ROUTE ; Start 09/09/16 at 07:34; Stop 09/09/16 at 07:35; Status DC Fosphenytoin Sodium/Sodium Chloride (Cerebyx Inj/NS Inj) 70 ml @ 280 mls/hr ONCE ONCE IV Last administered on 09/09/16 08:15; Start 09/09/16 at 09:00; Stop 09/09/16 at 09:14; Status DC Fosphenytoin Sodium (Cerebyx Inj) 100 mgpe Q8HR IV Last administered on 14:00; Start 09/09/16 at 14:00 Lorazepam 6 mg 6 mg ONCE ONCE IV Last administered on 09/09/16 07:00; Start 09/09/16 at 08:00; Stop 09/09/16 at 08:01; Status DC Phenylephrine HCl/ Dextrose (Neosynephrine Inj/D5W 500 ml Inj) 500 ml @ 0 mls/ hr TITRATE IV ; Start 09/09/16 at 09:45; Stop 09/09/16 at 09:45; Status DC Terbutaline Sulfate 1 mg 1 mg UNSCH PRN SQ FOR EXTRAVASATION PROTOCOL; Start at 09:45; Stop 09/13/16 at 08:38; Status DC Phenylephrine HCl 40 mg/Sodium Chloride 500 ml @ 0 mls/hr TITRATE IV Last administered on 09/09/16 17:55; Start 09/09/16 at 09:45; Stop 09/09/16 at 17:47 ; Status DC Vancomycin HCl 1000 mg/Sodium Chloride 250 ml @ 250 mls/hr ONCE ONCE IV Last administered on 09/09/16 11:23; Start 09/09/16 at 10:45; Stop 09/09/16 at 11:44 ; Status DC Pharmacy Profile Note 0 ml @ 0 mls/hr UNSCH OTHER ; Start 09/09/16 at 10:45; Stop 09/13/16 at 08:39; Status DC Norepinephrine Bitartrate 4 mg/ Sodium Chloride 250 ml @ 0 mls/hr TITRATE IV Last administered on 09/09/16 15:33; Start 09/09/16 at 11:15; Stop 09/09/16 at 17:47; Status DC Vancomycin HCl/ Sodium Chloride (Vancomycin Inj/ NS 250 ml Inj) 250 ml @ 250 mls/hr Q8H IV Last administered on 09/11/16 05:52; Start 09/09/16 at 20:00; Stop 09/11/16 at 12:58; Status DC Miscellaneous Information SPECIFIC LAB TO BE DRAWN:VANCOMYCIN TROUGH DATE TO... ONCE ONCE .XX Last administered on 09/10/16 11:27; Start 09/10/16 at 11:45; Stop 09/10/16 at 11:46; Status DC Sodium Chloride (NS 1000 ml Inj) 1,000 ml @ 999 mls/hr Q1H1M IV Last administered on 09/09/16 11:00; Start 09/09/16 at 11:45; Stop 09/09/16 at 13:45 ; Status DC Gadodiamide 20 ml 20 ml STK-MED ONCE IV Last administered on 09/09/16 16:39; Start 09/09/16 at 16:39; Stop 09/09/16 at 16:40; Status DC Phenylephrine HCl/ Dextrose (Neosynephrine Inj/D5W 500 ml Inj) 500 ml @ 0 mls/ hr TITRATE IV ; Start 09/09/16 at 18:00; Stop 09/09/16 at 18:00; Status DC Terbutaline Sulfate 1 mg 1 mg UNSCH PRN SQ FOR EXTRAVASATION PROTOCOL; Start at 18:00; Stop 09/13/16 at 08:38; Status DC Norepinephrine Bitartrate 16 mg/ Dextrose 250 ml @ 0 mls/hr TITRATE IV ; Start 09/09/16 at 18:00; Stop 09/09/16 at 18:00; Status DC Phenylephrine HCl 160 mg/Sodium Chloride 500 ml @ 0 mls/hr TITRATE IV Last administered on 09/10/16 04:52; Start 09/09/16 at 18:00; Stop 09/11/16 at 11:27 ; Status DC Norepinephrine Bitartrate/Sodium Chloride (Levophed Inj/NS 250 ml Inj) 250 ml @ 0 mls/hr TITRATE IV Last administered on 09/10/16 04:52; Start 09/09/16 at 18: 00; Stop 09/13/16 at 08:39; Status DC Aspirin (Aspirin Chew) 81 mg DAILY CHEW Last administered on 09/13/16 10:09; Start 09/10/16 at 09:00; Status Hold Artificial Tears (Tears Naturale Opth Soln) 1 drop BID EACH EYE Last administered on 09/14/16 09:42; Start 09/10/16 at 21:00 Docusate Sodium (Colace Liq) 100 mg BID PO Last administered on 09/13/16 20:13 ; Start 09/10/16 at 21:00 Midazolam HCl (Versed Inj) 5 mg STK-MED ONCE .ROUTE ; Start 09/10/16 at 09:43; Stop 09/10/16 at 09:44; Status DC Acetaminophen (Tylenol 650 Mg/ 20 ml Liq) 650 mg NOW ONCE PO Last administered on 09/10/16 11:19; Start 09/10/16 at 10:30; Stop 09/10/16 at 10:31 ; Status DC Dextrose (D50w (Syr) Inj) 50 ml STK-MED ONCE .ROUTE ; Start 09/10/16 at 12:49; Stop 09/10/16 at 12:50; Status DC Dextrose (D50w (Syr) Inj) 50 ml NOW ONCE IV PUSH Last administered on 12:45; Start 09/10/16 at 13:30; Stop 09/10/16 at 13:31; Status DC Miscellaneous Information SPECIFIC LAB TO BE DRAWN:VANCOMYCIN TROUGH DATE TO... ONCE ONCE .XX Last administered on 09/11/16 11:45; Start 09/11/16 at 11:45; Stop 09/11/16 at 11:46; Status DC Midazolam HCl (Versed Inj) 3 mg ONCE ONCE IV PUSH Last administered on 09:44; Start 09/10/16 at 14:15; Stop 09/10/16 at 14:16; Status DC Dextrose 50 ml 50 ml NOW ONCE IV PUSH Last administered on 09/10/16 16:09; Start 09/10/16 at 16:00; Stop 09/10/16 at 16:34; Status DC Sodium Chloride (NS 1000 ml Inj) 1,000 ml @ 100 mls/hr Q10H IV Last administered on 09/14/16 11:10; Start 09/11/16 at 12:00 Propranolol HCl (Inderal) 20 mg Q8HR PO Last administered on 09/12/16 04:44; Start 09/11/16 at 14:00; Stop 09/12/16 at 17:13; Status DC Magnesium Citrate (Citroma Liq) 300 ml ONCE ONCE NG ; Start 09/12/16 at 09:00; Stop 09/12/16 at 09:01; Status DC Lactulose 30 ml 30 ml QID PO Last administered on 09/13/16 10:08; Start at 09:00 Vancomycin HCl/ Sodium Chloride (Vancomycin Inj/ NS 250 ml Inj) 250 ml @ 250 mls/hr Q12H IV Last administered on 09/12/16 21:29; Start 09/12/16 at 10:00; Stop 09/13/16 at 08:39; Status DC Miscellaneous Information SPECIFIC LAB TO BE CHANDU... ONCE ONCE .XX ; Start at 09:45; Stop 09/14/16 at 09:45; Status DC Furosemide (Lasix Inj) 20 mg ONCE ONCE IV PUSH Last administered on 09/12/16 12:04; Start 09/12/16 at 09:30; Stop 09/12/16 at 09:31; Status DC Mannitol 12.5 gm 12.5 gm Q8H IV Last administered on 09/12/16 15:37; Start at 14:00; Stop 09/12/16 at 21:51; Status DC Sodium Chloride 188 meq/Sodium Chloride 1,047 ml @ 20 mls/hr Q24H IV Last administered on 09/13/16 16:06; Start 09/12/16 at 16:00 Norepinephrine Bitartrate (Levophed-Dextrose Drip) 250 ml @ 0 mls/hr TITRATE IV Last administered on 09/13/16 06:51; Start 09/12/16 at 18:00 Terbutaline Sulfate (Brethine Inj) 1 mg UNSCH PRN SQ For Extravasation; Start 09/12/16 at 18:00 Iohexol (Omnipaque 350 Inj) 30 ml STK-MED ONCE IV Last administered on 21:02; Start 09/12/16 at 21:02; Stop 09/12/16 at 21:03; Status DC Mannitol (Mannitol Inj) 12.5 gm Q8H IV Last administered on 09/13/16 06:23; Start 09/12/16 at 23:00; Stop 09/17/16 at 14:59 Potassium Bicarb/ Potassium Chloride (K-Lyte Cl Eff) 25 meq DAILY PO Last administered on 09/14/16 09:43; Start 09/13/16 at 09:00 Magnesium Citrate (Citroma Liq) 300 ml ONCE ONCE PO ; Start 09/13/16 at 08:30; Stop 09/13/16 at 08:41; Status DC Bisacodyl (Dulcolax Supp) 10 mg DAILY RECTAL Last administered on 09/13/16 10: 09; Start 09/13/16 at 09:00 Attending Statement Continue neuro checks. Anoxic encephalopathy. Will remove ICP monitor. Discussed with dr Best Pulmonary. Continue mechanical ventilation. Continue aggressive pulmonary toilette, nasotracheal suction, and breathing treatments with nebulizers. Liver ultrasound to rule out cava obstruction Nutrition. Tube feedings Renal. monitor closely urine output, BUN and creatinine Endocrine. Monitor serial Acu checks and SSI as needed in detail ID monitor for signs of infection Protonix for stress ulcer prophylaxis Carlitos tate and SCD's for DVT prophylaxis Jomar José MD Sep 16, 2016 16:21
[2016-09-16] MEDS: PANTOPRAZOLE SODIUM 40 MG VIAL IVP SCH (20:45)
[2016-09-17] VITALS (19 sets, daily range): BP systolic 114–148; BP diastolic 61–82; PULSE 110–127; RESP 22–29; TEMP 98.6–101.2; O2SAT 92–100
[2016-09-17] MEDS: CHLORHEXIDINE GLUCONATE 2 % 1 PACK (2 CLOTHS) TOP SCH (03:35)
--- NOTE | 2016-09-17 04:17 | HHI.CCPN ---
Subjective Remarks/Hospital Course 19 years old was brought in as a trauma alert. He has had to hanged herself and was found by her roommate. Unknown time of hanging. When fire department arrived patient was in asystole. CPR was started and one round of meds were given as per ACLS protocol. There was return of spontaneous circulation soon after that. Patient was brought in getting breaths by BV. She had a blood pressure and half way to arriving to the ER she started having some spontaneous respirations. She continued to be a GCS 3 when she arrived. She is admitted to critical care unit and therapeutic hypothermia protocol is initiated. SUBJ 09/08/16: Patient achieving target temperature but developing severe shock. Levothroid had been increased to 30 mcg/m Mehdi-Synephrine added. Additional fluid boluses ordered currently on bicarbonate infusion additional one amp of bicarbonate given. Chest x-ray shows severe aspiration pneumonitis predominantly right lower lobe infiltrates. Zosyn 4.5 GM IV q8 started, give single dose of vanc 09/09/16: Patient is in the rewarming phase of hypothermia protocol. Once sedation was lightened and taken off the Nimbex, patient started developing tonic-clonic generalized seizure like activity. Bolused with a total of 6 mg Ativan in divided doses and restarted on Versed and propofol infusions. Loaded with Cerebyx 1 g and scheduled at 100 mg every 8 hours. Stat EEG pending. Neurology following 09/10/16: Remains on high dose of vasopressors, MRI brain shows evidence of anoxic brain injury. MRA neck bilateral common carotid narrowing. Start on aspirin get vascular surgery consult. No further seizure-like episodes noted. Pupils are equal bilaterally with slight withdrawal of right lower extremity to central pain. 09/11/16: Currently remains off all sedation in process. No noticeable improvement in neuro status, slight withdrawal x4. Aspirin started for bilateral common carotid narrowing-vascular surgery consult appreciated. Continue Cerebyx EEG sharp activity on eeg. MRI indicates diffuse anoxic brain injury with poor prognosis. EEG bihemispheric slowing and intermittent right central posterior sharp discharges which appear to be epileptiform. Dilantin level is therapeutic 09/12/16: Overnight had episodes myoclonus versus seizures. Neuro exam remains poor. No significant improvement. Low grade fever. Remains tachypneic on the ventilator. Restart propofol for vent synchrony 09/13/16: Neuro exam remains unchanged overnight. ICP monitor placed 09/12 for cerebral edema- ICP controlled with hyperosmolar therapy. 2 episodes of seizures vs myoclonus reported. Repeat EEG today. IVC filter placed 09/12/16 evening for large IVC thrombus. Unable to anticoagulate due to thrombocytopenia , cerebral edema-high risk of bleeding 09/14 EEG yesterday showed severe encephalopathy. ICP mainly 10-13 but intermittently spiked up to max of 22, improved with propofol bolus. Myoclonus noted with any tactile stimulation. 09/15 Comatose with myoclonus. ICP intermittently increased to 20, sometimes drifts down without intervention, sometimes improves with sedation. Extensor posturing. Subjective: 09/16 Off continuous sedation. Comatose with myoclonus. Corneal reflex present on left, absent on right. ICP monitor removed today per NSG. Objective Vital Signs Date Time Temp Pulse Resp B/P Pulse Ox O2 Delivery O2 Flow Rate FiO2 09/17/16 02:18 40 09/17/16 02:00 116 09/17/16 01:47 96 09/17/16 00:00 101.2 24 130/72 Intake and Output 09/16/16 09/16/16 09/16/16 07:59 15:59 23:59 Intake Total 994 ml 976 ml 404 ml Output Total 1875 ml 2050 ml 2350 ml Balance -881 ml -1074 ml -1946 ml Result Diagram: 09/15/16 0500 09/16/16 0545 Imaging Last [address] 09/07/16 1800 Signed Impressions: Service Date/Time: Wednesday, September 07, 2016 18:06 - CONCLUSION: Normal examination. Artem Madera MD Chest X-Ray 09/07/16 1800 Signed Impressions: Service Date/Time: Wednesday, September 07, 2016 17:49 - CONCLUSION: Subtle densities in the upper lobes. Otherwise unremarkable chest. Artem Madera MD ADDENDUM: See above. Artem Madera MD Cervical Spine CT 09/07/16 1800 Signed Impressions: Service Date/Time: Wednesday, September 07, 2016 18:06 - CONCLUSION: 1. No fracture or subluxation. 2. Scattered groundglass nodules throughout the upper lobes, nonspecific but can be seen with hypersensitivity pneumonitis. Artem Madera MD Objective Remarks Drips: 2% NaCl at 20 mL per hour Levophed standby Propofol off GENERAL: Well-nourished, well-developed patient. Intubated. Comatose SKIN: Warm and dry. HEAD: Normocephalic. Pupils are 4 mm reactive to 3 mm bilaterally. EYES: No scleral icterus. No injection or drainage. NECK: Supple, trachea midline. No JVD or lymphadenopathy. Contusion anterior neck from hanging, carotids palpable CARDIOVASCULAR: Tachycardic rhythm. No murmurs. RESPIRATORY: Breath sounds equal bilaterally, intermittently tachypneic on the ventilator. Clear to auscultation anteriorly GASTROINTESTINAL: Abdomen soft, non-tender, distended. MUSCULOSKELETAL: No cyanosis, 1+ edema. NEURO: Intubated, off all sedation. +pupil reflex as per above. Slight corneal reflex present on the left , absent on the right. No cough or gag. Eye movement with oculocephalic is very slight but not completely absent. No spontaneous eye opening, eye movement or tracking. General myoclonic movements. A/P Assessment and Plan NEURO: Severe anoxic brain injury Bilateral common carotid narrowing Attempted suicide by hanging Seizure - MRI shows evidence of diffuse anoxic brain injury. - MRI with bilateral common carotid narrowing-vascular surgery consulted, no intervention. started aspirin 09/10, held when she developed thrombocytopenia - CT 09/12-loss salguero/white matter differentiation c/w cerebral edema. ICP monitor placed 09/12 , removed 09/16. Stop mannitol 09/17 and stop 2% saline 20 mL/hr. . - EEG 09/10 bilateral sharp activity continue Dilantin. Level therapeutic 09/12. EEG 09/11 Encephalopathy, no sz. EEG 09/13severe encephalopathy. - s/p induced hypothermia. - Neurology Dr. Wong following. Discussed with him and he states prognosis is poor and he would agree with recommendation for comfort measures. -NSG Dr. José states poor prognosis, recommends comfort care. - Toxicology negative -Propofol for sedation/ICPs. -Oxycodone for pain. Fentanyl prn CV: Shock resolved Status postcardiac arrest - Off levophed which was used to maintain CPP Resp: Acute hypoxemic respiratory failure Pre-hospital Aspiration pneumonitis Acute lung injury - Intubated for airway protection, hypoxemic respiratory failure from pre hospital aspiration - PRVC, ventilator bundle. DuoNeb every 6 hours and when necessary - No vent weaning due to ICP elevation . - Patient has evidence of aspiration on admission as indicated by right lower lobe infiltrate GI: Transaminitis most likely from shock, resolved. - Tube feedings Jevity 1.5 at 50 L per hour per nutrition recommendations. - Had bowel and after mag citrate was given. -Liver ultrasound 09/12large nonocclusive thrombus and IVC. Small Pericholecystic fluid and gallbladder wall thickening raising possibility of cholecystitis. -Followup CMP stable. Will continue clinical monitoring. Renal: Acute kidney injury Fluid overload - IV fluid as above, Benjamin catheter, monitor BUN/creatinine ID: Septic, neurogenic shock-resolved Aspiration pneumonia, prehospital Sputum with MSSA 09/08. - Zosyn 4.5 g IV every 6 hours 09/08-09/15 #8 . Temp max 100.1, may be secondary to DVT. Off vancomycin. Endo: - Electrolyte replacement per protocol - Sliding-scale insulin if needed HEME: Leukopenia, resolved Thrombocytopenia consumptive Large IVC thrombus - Monitor CBC CMP coags. - IVC filter placed 09/12 due to inability to anticoagulate (thrombocytopenia ). - This was discussed with hematology Dr. Kwok and neurologist surgeon Dr. Davenport -Now platelets improved, consider initiation of anticoagulation. 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 Consider KP to decide upon appropriate anticoagulant if goals of care remain aggressive. DVT GI prophylaxis - IVC filter in place. Continue Pepcid Lines: - Right femoral cooling catheter and right brachial arterial line placed by Dr. England-DC both. L subclavian central line 09/10/16 #7. L radial art line 09/12/16 # 4 Findings of status myoclonus, peristent coma, cerebral edema on MRI Level 3 Followup. Cathy Clark MD Sep 17, 2016 04:17 Cathy Clark MD Sep 17, 2016 04:17
[2016-09-17] MEDS: FOSPHENYTOIN SODIUM 100 MG PE/2 ML VIAL IV SCH ×3 (05:22→23:34)
--- NOTE | 2016-09-17 06:30 | RADRPT ---
EXAM DATE/TIME: 09/17/2016 05:56 [facility] COMPARISON: CHEST SINGLE AP, September 13, 2016, 4:49. INDICATIONS : Respiratory disease MEDICAL HISTORY : None. SURGICAL HISTORY : None. ENCOUNTER: Subsequent ACUITY: 1 week PAIN SCORE: Non-responsive. LOCATION: Bilateral chest FINDINGS: The cardiac silhouette is normal in transverse diameter. Support lines and tubes are in satisfactory position. There is improving perihilar edema. No pleural effusions are identified. CONCLUSION: 1. Resolving pulmonary edema. Satinder Lira MD on September 17, 2016 at 6:28 Board Certified Radiologist. This report was verified electronically.
[2016-09-17 06:52] LABS: HEMATOCRIT 29.9 % (35.0-46.0); MEAN CELL VOLUME 82.8 FL (80.0-100.0); MEAN CORPUSCULAR HEMOGLOBIN 27.7 PG (27.0-34.0); MEAN CORPUSCULAR HGB CONC 33.5 % (32.0-36.0); PLATELET COUNT 210 TH/MM3 (150-450); RED BLOOD COUNT 3.61 MIL/MM3 (4.00-5.30); RED CELL DISTRIBUTION WIDTH 15.2 % (11.6-17.2); REVIEW FLAG FINAL; WHITE BLOOD COUNT 7.3 TH/MM3 (4.0-11.0)
[2016-09-17 07:17] LABS: ALKALINE PHOSPHATASE 62 U/L (45-117); ALT (GPT) 26 U/L (9-42); ANION GAP 8 MEQ/L (5-15); AST (GOT) 56 U/L (16-38); BICARBONATE 24.9 MEQ/L (21.0-32.0); BLOOD UREA NITROGEN 14 MG/DL (7-18); CHLORIDE 105 MEQ/L (98-107); GLOMERULAR FILTRATION RATE 98 ML/MIN (>89); POTASSIUM 3.9 MEQ/L (3.5-5.1); SODIUM (NA) 138 MEQ/L (136-145); TOTAL BILIRUBIN ADULT 0.2 MG/DL (0.2-1.0)
[2016-09-17 07:56] LABS: BLOOD, URINE NEG (NEG); COMMENT (UR) CULT NOT INDICATED; CULTURE IF INDICATED CULT NOT INDICATED; GLUCOSE,URINE NEG (NEG); KETONE, URINE NEG (NEG); NITRITE,URINE NEG (NEG); URINE COLOR LIGHT-YELLOW (YELLW/STRAW)
[2016-09-17] MEDS: POTASSIUM CHLORIDE 25 MEQ EFFERVESCENT TAB PO SCH (07:56)
[2016-09-17] MEDS: SODIUM CHLORIDE 0.9% FLUSH 10 ML FLUSH IV FLUSH PRN (07:57)
[2016-09-17] MEDS: ARTIFICIAL TEARS OPTH OINT 3.5 APPLIC/3.5 GM TUBO EACH EYE PRN (08:00)
[2016-09-17] MEDS: ARTIFICIAL TEARS OPTH SOLN 15 ML BTL EACH EYE SCH ×2 (08:00→21:21)
[2016-09-17] MEDS: ACETAMINOPHEN 325 MG TAB PO PRN ×3 (08:04→23:34)
[2016-09-17] MEDS: DOCUSATE SODIUM 100 MG/10 ML UDC PO SCH ×2 (09:00→21:00)
[2016-09-17] MEDS: LACTULOSE SYRUP 20 GM/30 ML CUP PO SCH ×4 (09:00→21:00)
[2016-09-17] MEDS: BISACODYL 10 MG SUPP RECTAL SCH (09:00)
[2016-09-17] MEDS: LORazepam 2 MG/ML VIAL IV PRN ×9 (10:36→23:55)
--- NOTE | 2016-09-17 12:27 | PD.CONS ---
Consult Service Palliative Care Consult Requested By Dr. Clark . Primary Care Physician No Primary Care Physician . Reason for Consultation a. To assist with evaluation and management of symptoms including: Dyspnea , possible pain b. To assist medical decision maker(s) with: better understanding of current medical conditions; weighing benefits/burdens of medical treatment options; making medical treatment decisions. . HPI History of Present Illness This 20-year-old female, with a past history of depression, was found hanging by nylon rope from a chin up bar, and was asystolic on first contact. Resuscitation resulted in return of spontaneous circulation prior to reaching the emergency department. In the emergency department, findings included: * Unresponsive, no pupillary reaction * CT brain scan negative * CT of the C-spine negative for fracture The patient was a "Trauma Alert" on arrival, and was admitted to the trauma service. She has had repetitive and consistent myoclonus, not felt to represent seizure, and EEG has recently been consistent with a significant encephalopathy. The MRI of the brain on the second hospital day revealed signs consistent with an anoxic injury. Imaging revealed abnormalities of the carotid arteries, but upon further evaluation no intervention was indicated. Neurology and neurosurgery felt the prognosis was quite poor, and the manager public discussed the poor prognosis with the patient's mother, grandmother , and the patient's boyfriend yesterday. Palliative Care was consulted to assist with symptom management, and to enter into further discussions with the patient's family regarding the current medical issues, the prognosis, and the benefits and burdens of the various treatment choices. . Function/Cognitive Trajectory Prior to this and anoxic injury, the patient was functioning independently. . Review of Systems ROS Limitations: Clinical Condition (history per mother and nursing staff), Intubated, Unresponsive Constitutional: DENIES: Weight loss Endocrine: DENIES: Polyuria Eyes: DENIES: Eye inflammation Ears, nose, mouth, throat: DENIES: Epistaxis Respiratory: DENIES: Cough Cardiovascular: DENIES: Lower Extremity Edema Gastrointestinal: DENIES: Bloody stools, Diarrhea, Vomiting, Vomiting blood Genitourinary: DENIES: Hematuria Musculoskeletal: DENIES: Joint Swelling Integumentary: DENIES: Rash Hematologic/Lymphatics: DENIES: Lymphadenopathy Immunologic/Allergic: DENIES: Urticaria Neurologic: COMPLAINS OF: Tremor (myoclonus) Psychiatric: COMPLAINS OF: Depression Past Family Social History Coded Allergies: No Known Allergies (Unverified , 09/07/16) Past Medical History * anoxic brain injury * Status post hanging suicide attempt versus gesture * Myoclonus * History of depression . Current Medications Medications (Trade) Dose Ordered Sig/Jenaro Route Start Time Stop Time Status Last Admin (Vasotec Inj) 1.25 mg Q8H PRN IV 09/07/16 18:45 (Zofran Inj) 4 mg Q6H PRN IV 09/07/16 18:45 (Protonix Inj) 40 mg Q24H IVP 09/07/16 20:00 09/16/16 20:45 (Milk Of Magnesia Liq) 30 ml Q6H PRN PO 09/07/16 18:45 Miscellaneous Information 1 Q361D XX 09/07/16 18:45 09/07/16 18:45 (Chlorhexidine 2% Cloth) Taper DAILY@04 TOP 09/08/16 04:00 09/04/17 03:59 09/12/16 01:00 (Chlorhexidine 2% Cloth) 3 pack UNSCH PRN TOP 09/07/16 18:45 Lorazepam 1 mg 1 mg Q1H PRN IV 09/07/16 22:00 09/17/16 10:36 Miscellaneous Information ml @ 0 mls/hr UNSCH IV 09/07/16 22:00 (NS Flush) 2 ml UNSCH PRN IV FLUSH 09/07/16 22:00 09/17/16 07:57 (NS Flush) 2 ml UNSCH PRN IV FLUSH 09/07/16 22:00 Artificial Tears 1 applic 1 applic Q4H PRN EACH EYE 09/07/16 22:00 09/17/16 08:00 Potassium Chloride 100 ml @ 50 mls/hr Q2H PRN IV 09/08/16 00:30 09/13/16 09:02 (KCl 20 Meq Premix Inj) 100 ml @ 50 mls/hr Q2H PRN IV 09/08/16 00:30 09/08/16 18:20 Potassium Bicarb/ Potassium Chloride 50 meq 50 meq UNSCH PRN PO 09/08/16 00:30 Potassium Chloride 100 ml @ 25 mls/hr UNSCH PRN IV 09/08/16 00:30 09/15/16 04:38 Potassium Chloride 100 ml @ 50 mls/hr Q2H PRN IV 09/08/16 00:30 09/14/16 18:35 (Magnesium Sulfate Inj/NS Inj) 100 ml @ 50 mls/hr UNSCH PRN IV 09/08/16 00:30 Magnesium Oxide 800 mg 800 mg UNSCH PRN PO 09/08/16 00:30 (Magnesium Sulfate Inj/NS Inj) 100 ml @ 50 mls/hr UNSCH PRN IV 09/08/16 00:30 09/13/16 07:11 Potassium Phosphate 2000 mg 2,000 mg Q4H PRN PO 09/08/16 00:30 (Sodium Phosphate Inj/NS 250 ml Inj) 250 ml @ 42 mls/hr UNSCH PRN IV 09/08/16 00:30 Potassium Phosphate 2000 mg 2,000 mg UNSCH PRN PO/TUBE 09/08/16 00:30 Potassium Phosphate 30 mmol/ Sodium Chloride 260 ml @ 42 mls/hr UNSCH PRN IV 09/08/16 00:30 (Diprivan 1000 Mg/100ml Inj) 100 ml @ 0 mls/hr TITRATE IV 09/08/16 02:00 09/16/16 11:59 (Cerebyx Inj) 100 mgpe Q8HR IV 09/09/16 14:00 09/17/16 05:22 (Aspirin Chew) 81 mg DAILY CHEW 09/10/16 09:00 Hold 09/13/16 10:09 (Tears Naturale Opth Soln) 1 drop BID EACH EYE 09/10/16 21:00 09/17/16 08:00 (Colace Liq) 100 mg BID PO 09/10/16 21:00 09/14/16 20:02 (Lactulose Liq) 30 ml QID PO 09/12/16 09:00 09/14/16 20:02 (K-Lyte Cl Eff) 25 meq DAILY PO 09/13/16 09:00 09/17/16 07:56 (Dulcolax Supp) 10 mg DAILY RECTAL 09/13/16 09:00 09/13/16 10:09 (Roxicodone) 5 mg Q6H OG-TUBE 09/14/16 20:00 09/17/16 07:55 (fentaNYL INJ) 50 mcg Q1H PRN IV PUSH 09/14/16 19:00 8/4/17 10:17 (Tylenol) 650 mg Q4H PRN PO 09/15/16 20:30 09/17/16 08:04 (Brethine Inj) 1 mg UNSCH PRN SQ 09/16/16 08:15 Family History Last Impressions Chest X-Ray 09/17/16 0600 Signed Impressions: Service Date/Time: Saturday, September 17, 2016 05:56 - CONCLUSION: 1. Resolving pulmonary edema. Satinder Lira MD Liver Ultrasound 09/12/16 0000 Signed Impressions: Service Date/Time: Monday, September 12, 2016 16:15 - CONCLUSION: 1. 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 2. Pericholecystic fluid and gallbladder wall thickening raising the possibility of cholecystitis. A hepatobiliary scan may be helpful to confirm cystic duct obstruction if clinically indicated. 3. Gallbladder sludge. 4. Ascites. 5. Bilateral pleural effusions. 6. Mild hepatomegaly. 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 This is nonocclusive. A retrievable IVC filter was deployed below the main hepatic veins but it was necessary to cross an accessory right hepatic vein. Jose Armando Jackson Jr., MD Head CT 09/12/16 0000 Signed Impressions: Service Date/Time: Monday, September 12, 2016 09:29 - CONCLUSION: Mild loss of lemos matter definition that can be seen with increasing intracranial pressure. Ricki Cavazos MD FACR Neck Magnetic Resonance Angiography 09/09/16 0000 Signed Impressions: Service Date/Time: August 16:02 - CONCLUSION: 1. Moderate to severe smooth narrowing of the left common carotid artery and also moderate narrowing of the proximal right common carotid artery as well as narrowing of both proximal vertebral arteries likely related to recent hanging. Etiology could be related to vasospasm or recent extrinsic prolonged compression. The distal internal carotid arteries and vertebral artery have more normal calibers. Findings called to Dr. Bhatt at the time of dictation. Gideon Brown MD Cervical Spine MRI 09/09/16 0000 Signed Impressions: Service Date/Time: August 16:02 - CONCLUSION: 1. Very minimal degenerative disc disease at C5-6. 2. No acute fracture or prevertebral soft tissue swelling. 3. No focal cervical cord abnormality. Tray Santiago MD Brain MRI 09/09/16 0000 Signed Impressions: Service Date/Time: August 16:02 - CONCLUSION: 1. Diffuse FLAIR-weighted hyperintensities involving the caudate nuclei bilaterally, bilateral hummel radiata, as well as the bilateral parietal and occipital cortex consistent with the patient's clinical diagnosis of anoxic encephalopathy. 2. No acute hemorrhage, midline shift, extra-axial fluid collection or abnormal enhancement. 3. Small fluid level within the right sphenoid sinus. Tray Santiago MD Cervical Spine CT 09/07/16 1800 Signed Impressions: Service Date/Time: Wednesday, September 07, 2016 18:06 - CONCLUSION: 1. No fracture or subluxation. 2. Scattered groundglass nodules throughout the upper lobes, nonspecific but can be seen with hypersensitivity pneumonitis. Artem Madera MD Substance Use Tobacco: None reported Alcohol: None reported Prescription med abuse: None reported Illicits: Denied . Psychosocial History The patient was born in [place], but has lived in this area intermittently for most of her life. She has never been , and has no siblings. The patient's mother reports that the patient's father had significant psychiatric issues and has not been a part of the patient's life since the patient was born. The patient's mother says the patient describes herself as"gender-fluid," and prefers to be referred to as "them." . Spiritual/Cultural Factors The patient's mother reports the patient is not spiritual or scientologist, "but the rest of the family is." She says the family is Catholic, and they have had support from their rabbi during this difficult time. . Living Will: Never completed Health Care Surrogate: Never completed Durable Power of Soap Chipper: Never completed Family/friends goals: The patient's mother has a clear understanding of the brain injury and poor prognosis, but wants to "allow more time for a possible miracle." She sees no reason to delay proceeding with trach and PEG, as she is not going to withdraw life support within the upcoming few days. She wants all current care to continue, and for the patient to remain FULL CODE. . Ethical and Legal Issues There are no ethical issues that would impact her care or decision-making at this time. The patient lacks capacity for decision-making and will not regain that capacity. The patient's father has not been a part of her life since , and his whereabouts are unknown. The patient is unmarried, and her mother is thus the decision making proxy. . Physical Exam Vital Signs Date Time Temp Pulse Resp B/P Pulse Ox O2 Delivery O2 Flow Rate FiO2 09/17/16 11:34 96 40 09/17/16 11:21 24 09/17/16 09:24 28 09/17/16 09:24 28 09/17/16 08:24 92 40 09/17/16 06:00 122 09/17/16 04:51 95 40 09/17/16 04:00 40 09/17/16 04:00 118 09/17/16 04:00 100.6 118 29 134/82 95 09/17/16 02:18 40 09/17/16 02:00 116 09/17/16 01:47 96 40 09/17/16 00:00 101.2 120 24 130/72 95 09/17/16 00:00 40 09/17/16 00:00 120 09/16/16 22:12 97 40 09/16/16 22:00 118 09/16/16 20:00 122 09/16/16 20:00 101.2 122 22 130/72 96 09/16/16 20:00 40 09/16/16 19:32 99 40 09/16/16 18:00 122 09/16/16 17:25 96 40 09/16/16 16:00 118 09/16/16 16:00 40 09/16/16 16:00 101.1 118 25 132/70 98 09/16/16 14:00 110 09/16/16 09/17/16 19:00 07:00 Intake Total 976 ml 763 ml Output Total 2050 ml 3975 ml Balance -1074 ml -3212 ml Intake IV Total 515 ml 0 ml Tube Feeding 401 ml 643 ml Tube Irrigant 60 ml 120 ml Output Urine Total 1850 ml 3850 ml Stool Total 200 ml 125 ml Exam CONSTITUTIONAL/GENERAL: This is an adequately nourished patient, in no apparent distress, on the ventilator TUBES/LINES/DRAINS: ET tube, Benjamin, central line IV access SKIN: No jaundice, rashes, or lesions. No wounds seen anteriorly. Skin temperature appropriate. Not diaphoretic. HEAD: Atraumatic. Normocephalic. EYES: Pupils 2-3 mm and not reactive. No scleral icterus. No injection or drainage. Fundi not examined. ENT: Nose without bleeding or purulent drainage. NECK: Trachea midline. Supple, nontender. No palpable thyroid enlargement or nodularity. CARDIOVASCULAR: Regular rate and rhythm without murmurs, gallops, or rubs. No JVD. Peripheral pulses symmetric. RESPIRATORY/CHEST: Symmetric, unlabored respirations on the ventilator, with a few rhonchi GASTROINTESTINAL: Abdomen soft, nondistended. No hepato-splenomegaly, or palpable masses. Bowel sounds present. GENITOURINARY: Without palpable bladder distension. Benjamin catheter in place. MUSCULOSKELETAL: Extremities without clubbing, cyanosis, or edema. No mottling or clubbing. LYMPHATICS: No palpable cervical or supraclavicular adenopathy. NEUROLOGICAL: Unresponsive to voice, touch, or painful stimuli. Near continuous myoclonus noted involving feet, eyelids, fingers PSYCHIATRIC: Unable to evaluate due to her clinical condition . Diagnostic Tests Laboratory Last Impressions Chest X-Ray 09/17/16 0600 Signed Impressions: Service Date/Time: Saturday, September 17, 2016 05:56 - CONCLUSION: 1. Resolving pulmonary edema. Satinder Lira MD Liver Ultrasound 09/12/16 0000 Signed Impressions: Service Date/Time: Monday, September 12, 2016 16:15 - CONCLUSION: 1. 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 2. Pericholecystic fluid and gallbladder wall thickening raising the possibility of cholecystitis. A hepatobiliary scan may be helpful to confirm cystic duct obstruction if clinically indicated. 3. Gallbladder sludge. 4. Ascites. 5. Bilateral pleural effusions. 6. Mild hepatomegaly. 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 This is nonocclusive. A retrievable IVC filter was deployed below the main hepatic veins but it was necessary to cross an accessory right hepatic vein. Jose Armando Jackson Jr., MD Head CT 09/12/16 0000 Signed Impressions: Service Date/Time: Monday, September 12, 2016 09:29 - CONCLUSION: Mild loss of lemos matter definition that can be seen with increasing intracranial pressure. Ricki Cavazos MD FACR Neck Magnetic Resonance Angiography 09/09/16 0000 Signed Impressions: Service Date/Time: August 16:02 - CONCLUSION: 1. Moderate to severe smooth narrowing of the left common carotid artery and also moderate narrowing of the proximal right common carotid artery as well as narrowing of both proximal vertebral arteries likely related to recent hanging. Etiology could be related to vasospasm or recent extrinsic prolonged compression. The distal internal carotid arteries and vertebral artery have more normal calibers. Findings called to Dr. Bhatt at the time of dictation. Gideon Brown MD Cervical Spine MRI 09/09/16 0000 Signed Impressions: Service Date/Time: August 16:02 - CONCLUSION: 1. Very minimal degenerative disc disease at C5-6. 2. No acute fracture or prevertebral soft tissue swelling. 3. No focal cervical cord abnormality. Tray Santiago MD Brain MRI 09/09/16 0000 Signed Impressions: Service Date/Time: August 16:02 - CONCLUSION: 1. Diffuse FLAIR-weighted hyperintensities involving the caudate nuclei bilaterally, bilateral hummel radiata, as well as the bilateral parietal and occipital cortex consistent with the patient's clinical diagnosis of anoxic encephalopathy. 2. No acute hemorrhage, midline shift, extra-axial fluid collection or abnormal enhancement. 3. Small fluid level within the right sphenoid sinus. Tray Santiago MD Cervical Spine CT 09/07/16 1800 Signed Impressions: Service Date/Time: Wednesday, September 07, 2016 18:06 - CONCLUSION: 1. No fracture or subluxation. 2. Scattered groundglass nodules throughout the upper lobes, nonspecific but can be seen with hypersensitivity pneumonitis. Artem Madera MD Laboratory Tests Test 09/14/16 09/14/16 09/15/16 09/15/16 14:35 22:00 01:00 05:00 Sodium Level 153 MEQ/L 152 MEQ/L 151 MEQ/L (136-145) (136-145) (136-145) Potassium Level 3.5 MEQ/L 3.5 MEQ/L 3.5 MEQ/L (3.5-5.1) (3.5-5.1) (3.5-5.1) Serum Osmolality 308 MOSM/KG 314 MOSM/KG 312 MOSM/KG (275-295) (275-295) (275-295) Magnesium Level 1.9 MG/DL (1.5-2.5) White Blood Count 6.7 TH/MM3 (4.0-11.0) Red Blood Count 3.39 MIL/MM3 (4.00-5.30) Hemoglobin 9.3 GM/DL (11.6-15.3) Hematocrit 28.6 % (35.0-46.0) Mean Corpuscular Volume 84.4 FL (80.0-100.0) Mean Corpuscular Hemoglobin 27.5 PG (27.0-34.0) Mean Corpuscular Hemoglobin 32.5 % Concent (32.0-36.0) Red Cell Distribution Width 15.5 % (11.6-17.2) Platelet Count 130 TH/MM3 (150-450) Mean Platelet Volume 7.6 FL (7.0-11.0) Neutrophils (%) (Auto) 67.4 % (16.0-70.0) Lymphocytes (%) (Auto) 17.6 % (9.0-44.0) Monocytes (%) (Auto) 9.6 % (0.0-8.0) Eosinophils (%) (Auto) 4.9 % (0.0-4.0) Basophils (%) (Auto) 0.5 % (0.0-2.0) Neutrophils # (Auto) 4.5 TH/MM3 (1.8-7.7) Lymphocytes # (Auto) 1.2 TH/MM3 (1.0-4.8) Monocytes # (Auto) 0.6 TH/MM3 (0-0.9) Eosinophils # (Auto) 0.3 TH/MM3 (0-0.4) Basophils # (Auto) 0.0 TH/MM3 (0-0.2) CBC Comment DIFF FINAL Differential Comment Chloride Level 118 MEQ/L (98-107) Carbon Dioxide Level 24.7 MEQ/L (21.0-32.0) Anion Gap 8 MEQ/L (5-15) Blood Urea Nitrogen 12 MG/DL (7-18) Creatinine 0.86 MG/DL (0.50-1.00) Estimat Glomerular Filtration 85 ML/MIN (>89) Rate Random Glucose 107 MG/DL (74-106) Calcium Level 7.6 MG/DL (8.5-10.1) Total Bilirubin 0.3 MG/DL (0.2-1.0) Aspartate Amino Transf 48 U/L (16-38) (AST/SGOT) Alanine Aminotransferase 28 U/L (9-42) (ALT/SGPT) Alkaline Phosphatase 63 U/L (45-117) Total Protein 4.9 GM/DL (6.4-8.2) Albumin 1.7 GM/DL (3.4-5.0) Lipase 873 U/L (73-393) Test 09/15/16 09/15/16 09/15/16 09/16/16 08:42 14:15 21:45 05:45 Blood Gas Puncture Site ART LINE Blood Gas Patient Temperature 98.6 Blood Gas HCO3 23 mmol/L (22-26) Blood Gas Base Excess -1.6 mmol/L (-2-2) Blood Gas Oxygen Saturation 96 % (90-100) Arterial Blood pH 7.40 (7.380-7.420) Arterial Blood Partial 38 mmHg (38-42) Pressure CO2 Arterial Blood Partial 95 mmHg Pressure O2 (61-120) Arterial Blood Oxygen Content 12.6 Vol % (12.0-20.0) Arterial Blood 1.0 % (0-4) Carboxyhemoglobin Arterial Blood Methemoglobin 0.8 % (0-2) Blood Gas Hemoglobin 9.2 G/DL (12.0-16.0) Oxygen Delivery Device VENTILATOR Blood Gas Ventilator Setting PRVC/AC Blood Gas Inspired Oxygen 40 % Sodium Level 151 MEQ/L 146 MEQ/L 144 MEQ/L (136-145) (136-145) (136-145) Serum Osmolality 308 MOSM/KG 301 MOSM/KG 296 MOSM/KG (275-295) (275-295) (275-295) Test 09/17/16 06:15 White Blood Count 7.3 TH/MM3 (4.0-11.0) Red Blood Count 3.61 MIL/MM3 (4.00-5.30) Hemoglobin 10.0 GM/DL (11.6-15.3) Hematocrit 29.9 % (35.0-46.0) Mean Corpuscular Volume 82.8 FL (80.0-100.0) Mean Corpuscular Hemoglobin 27.7 PG (27.0-34.0) Mean Corpuscular Hemoglobin 33.5 % Concent (32.0-36.0) Red Cell Distribution Width 15.2 % (11.6-17.2) Platelet Count 210 TH/MM3 (150-450) Mean Platelet Volume 7.2 FL (7.0-11.0) Urine Color LIGHT-YELLOW (YELLW/STRAW) Urine Turbidity CLOUDY (CLEAR) Urine pH 8.0 (5.0-8.5) Urine Specific [place] 1.013 (1.002-1.035) Urine Protein TRACE mg/dL (NEG-TRACE) Urine Glucose (UA) NEG mg/dL (NEG) Urine Ketones NEG mg/dL (NEG) Urine Occult Blood NEG (NEG) Urine Nitrite NEG (NEG) Urine Bilirubin NEG (NEG) Urine Urobilinogen LESS THAN 2.0 MG/DL (LESS THAN 2.0) Urine Leukocyte Esterase NEG (NEG) Urine RBC 1 /hpf (0-3) Urine WBC 2 /hpf (0-5) Urine Amorphous Sediment MOD Urine Bacteria /hpf (NONE) Microscopic Urinalysis Comment CULT NOT INDICATED Sodium Level 138 MEQ/L (136-145) Potassium Level 3.9 MEQ/L (3.5-5.1) Chloride Level 105 MEQ/L (98-107) Carbon Dioxide Level 24.9 MEQ/L (21.0-32.0) Anion Gap 8 MEQ/L (5-15) Blood Urea Nitrogen 14 MG/DL (7-18) Creatinine 0.76 MG/DL (0.50-1.00) Estimat Glomerular Filtration 98 ML/MIN (>89) Rate Random Glucose 140 MG/DL (74-106) Calcium Level 7.6 MG/DL (8.5-10.1) Total Bilirubin 0.2 MG/DL (0.2-1.0) Aspartate Amino Transf 56 U/L (16-38) (AST/SGOT) Alanine Aminotransferase 26 U/L (9-42) (ALT/SGPT) Alkaline Phosphatase 62 U/L (45-117) Total Protein 5.9 GM/DL (6.4-8.2) Albumin 1.9 GM/DL (3.4-5.0) Result Diagram: 09/17/1615 09/17/1615 Microbiology Microbiology Date/Time Procedure Status Source Growth 09/17/16 06:15 Gram Stain - Final Resulted Sputum Endotracheal 09/17/16 06:15 Sputum Culture Resulted Sputum Endotracheal Pending 09/17/16 07:15 Aerobic Blood Culture Received Blood Peripheral Pending 09/17/16 07:15 Anaerobic Blood Culture Received Blood Peripheral Pending 09/17/16 07:23 Aerobic Blood Culture Received Blood Peripheral Pending 09/17/16 07:23 Anaerobic Blood Culture Received Blood Peripheral Pending Imaging Last Impressions Chest X-Ray 09/17/16 0600 Signed Impressions: Service Date/Time: Saturday, September 17, 2016 05:56 - CONCLUSION: 1. Resolving pulmonary edema. Satinder Lira MD Liver Ultrasound 09/12/16 0000 Signed Impressions: Service Date/Time: Monday, September 12, 2016 16:15 - CONCLUSION: 1. 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 2. Pericholecystic fluid and gallbladder wall thickening raising the possibility of cholecystitis. A hepatobiliary scan may be helpful to confirm cystic duct obstruction if clinically indicated. 3. Gallbladder sludge. 4. Ascites. 5. Bilateral pleural effusions. 6. Mild hepatomegaly. 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 This is nonocclusive. A retrievable IVC filter was deployed below the main hepatic veins but it was necessary to cross an accessory right hepatic vein. Jose Armando Jackson Jr., MD Head CT 09/12/16 0000 Signed Impressions: Service Date/Time: Monday, September 12, 2016 09:29 - CONCLUSION: Mild loss of lemos matter definition that can be seen with increasing intracranial pressure. Ricki Cavazos MD FACR Neck Magnetic Resonance Angiography 09/09/16 0000 Signed Impressions: Service Date/Time: August 16:02 - CONCLUSION: 1. Moderate to severe smooth narrowing of the left common carotid artery and also moderate narrowing of the proximal right common carotid artery as well as narrowing of both proximal vertebral arteries likely related to recent hanging. Etiology could be related to vasospasm or recent extrinsic prolonged compression. The distal internal carotid arteries and vertebral artery have more normal calibers. Findings called to Dr. Bhatt at the time of dictation. Gideon Brown MD Cervical Spine MRI 09/09/16 0000 Signed Impressions: Service Date/Time: August 16:02 - CONCLUSION: 1. Very minimal degenerative disc disease at C5-6. 2. No acute fracture or prevertebral soft tissue swelling. 3. No focal cervical cord abnormality. Tray Santiago MD Brain MRI 09/09/16 0000 Signed Impressions: Service Date/Time: , September 09, 2016 16:02 - CONCLUSION: 1. Diffuse FLAIR-weighted hyperintensities involving the caudate nuclei bilaterally, bilateral hummel radiata, as well as the bilateral parietal and occipital cortex consistent with the patient's clinical diagnosis of anoxic encephalopathy. 2. No acute hemorrhage, midline shift, extra-axial fluid collection or abnormal enhancement. 3. Small fluid level within the right sphenoid sinus. Tray Santiago MD Cervical Spine CT 09/07/16 1800 Signed Impressions: Service Date/Time: Wednesday, September 07, 2016 18:06 - CONCLUSION: 1. No fracture or subluxation. 2. Scattered groundglass nodules throughout the upper lobes, nonspecific but can be seen with hypersensitivity pneumonitis. Artem Madera MD Procedures Prakash bolt 09/12/16 (and subsequent removal) . Patient/Family Conference Present at Family Conference: Patient's mother, grandmother, and boyfriend, as well as Lizbet Jackson LCSW . Family Conference Time (mins): 55 Family Conference Location: Consult Room Issues Discussed: * Palliative care role, purpose, approach * Additional medical, psychosocial, and spiritual history * Patients general health, functional status, and cognitive changes in the months leading up to the current hospitalization * Patient/family understanding of the current medical problems * Patient/family understanding of prognosis * Patients goals of care as best understood from advance directives and/or conversations and/or values * Current medical treatment options and benefits/burdens of those options * Likely scenarios comparing ongoing aggressive care with a transition to comfort measures only * Questions answered to the best of my ability * Palliative care contact information provided The patient's mother has a clear understanding of the brain injury and poor prognosis, but wants to "allow more time for a possible miracle." She sees no reason to delay proceeding with trach and PEG, as she is not going to withdraw life support within the upcoming few days. She wants all current care to continue, and for the patient to remain FULL CODE. . 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 Spiritual: Not spiritual or scientologist, but family reports that they are Catholic and quite spiritual. Their rabbi has participated in care during this hospitalization. Legal: The patient lacks capacity for decision-making and will not regain that capacity. The patient's father has not been a part of her life since , and his whereabouts are unknown. The patient is unmarried, and her mother is thus the decision making proxy. Ethical issues impacting care: None . Important Contacts Mother: Agnieszka Tyson" [facility] [phone] Grandmother: Loy "Edie" [facility] [phone] Boyfriend: Seth Azul" [facility] [phone] . Prognosis The patient's prognosis is poor, and clearly she will not recover significant brain function. If the goals become comfort oriented, she is appropriate for withdrawal of life support, and hospice care. . Code Status: Full Code Plan * FULL CODE, per patient's mother 09/17/16. The patient's mother notes that her Catholic tradition "would not allow me to make her a DNR." * GOALS: The patient's mother has a clear understanding of the brain injury and poor prognosis, but wants to "allow more time for a possible miracle." She sees no reason to delay proceeding with trach and PEG, as she is not going to with withdraw life support within the upcoming few days. She wants all current care to continue, and for the patient to remain FULL CODE. * DECISION-MAKING: The patient lacks capacity for decision-making and she will not regain that capacity. There has been no contact with the patient's father since the patient was born, and the decision making proxy is the patient's mother "Reymundo." * SYMPTOMS: She is receiving some opiates on a regular basis, although it is difficult to know if there is any actual discomfort. Dyspnea is being managed via the ventilator. I have no further medication recommendations at this time. * Bereavement services were discussed with the mother, grandmother, and boyfriend, and they acknowledge that those will be available to them through a referral from our [facility]. * Nursing staff informed that patient's mother requests frequent communications , including being notified prior to any tests or scans ("even things that don't require them to call for consent"). * Palliative Care will continue to follow the patient during this hospitalization. . Time Spent Total Floor Time (mins): 88 Face to Face Time (mins): 16 >50% Counseling/Coord of Care: Yes (d/w Dr. Clark and with Dr. Barry, and with RN) Thank you for the opportunity to participate in the care of Ms. Negrete. Darlene Bragg MD Sep 17, 2016 12:27
[2016-09-17] MEDS ORDERED: MIDAZOLAM HCL 2 MG/2 ML VIAL IV PUSH ONE (13:30)
[2016-09-17] MEDS ORDERED: fentaNYL CITRATE 250 MCG/5 ML AMP IV PUSH ONE (13:30)
[2016-09-17] MEDS ORDERED: FUROSEMIDE 20 MG/2 ML VIAL IV PUSH ONE (13:30)
[2016-09-17] MEDS ORDERED: CISATRACURIUM BESYLATE 200 MG/20 ML VIAL IV ONE (13:30)
--- NOTE | 2016-09-17 13:34 | HHI.CCPN ---
Subjective Remarks/Hospital Course 19 years old was brought in as a trauma alert. He has had to hanged herself and was found by her roommate. Unknown time of hanging. When fire department arrived patient was in asystole. CPR was started and one round of meds were given as per ACLS protocol. There was return of spontaneous circulation soon after that. Patient was brought in getting breaths by BV. She had a blood pressure and half way to arriving to the ER she started having some spontaneous respirations. She continued to be a GCS 3 when she arrived. She is admitted to critical care unit and therapeutic hypothermia protocol is initiated. SUBJ 09/08/16: Patient achieving target temperature but developing severe shock. Levothroid had been increased to 30 mcg/m Mehdi-Synephrine added. Additional fluid boluses ordered currently on bicarbonate infusion additional one amp of bicarbonate given. Chest x-ray shows severe aspiration pneumonitis predominantly right lower lobe infiltrates. Zosyn 4.5 GM IV q8 started, give single dose of vanc 09/09/16: Patient is in the rewarming phase of hypothermia protocol. Once sedation was lightened and taken off the Nimbex, patient started developing tonic-clonic generalized seizure like activity. Bolused with a total of 6 mg Ativan in divided doses and restarted on Versed and propofol infusions. Loaded with Cerebyx 1 g and scheduled at 100 mg every 8 hours. Stat EEG pending. Neurology following 09/10/16: Remains on high dose of vasopressors, MRI brain shows evidence of anoxic brain injury. MRA neck bilateral common carotid narrowing. Start on aspirin get vascular surgery consult. No further seizure-like episodes noted. Pupils are equal bilaterally with slight withdrawal of right lower extremity to central pain. 09/11/16: Currently remains off all sedation in process. No noticeable improvement in neuro status, slight withdrawal x4. Aspirin started for bilateral common carotid narrowing-vascular surgery consult appreciated. Continue Cerebyx EEG sharp activity on eeg. MRI indicates diffuse anoxic brain injury with poor prognosis. EEG bihemispheric slowing and intermittent right central posterior sharp discharges which appear to be epileptiform. Dilantin level is therapeutic 09/12/16: Overnight had episodes myoclonus versus seizures. Neuro exam remains poor. No significant improvement. Low grade fever. Remains tachypneic on the ventilator. Restart propofol for vent synchrony 09/13/16: Neuro exam remains unchanged overnight. ICP monitor placed 09/12 for cerebral edema- ICP controlled with hyperosmolar therapy. 2 episodes of seizures vs myoclonus reported. Repeat EEG today. IVC filter placed 09/12/16 evening for large IVC thrombus. Unable to anticoagulate due to thrombocytopenia , cerebral edema-high risk of bleeding 09/14 EEG yesterday showed severe encephalopathy. ICP mainly 10-13 but intermittently spiked up to max of 22, improved with propofol bolus. Myoclonus noted with any tactile stimulation. 09/15 Comatose with myoclonus. ICP intermittently increased to 20, sometimes drifts down without intervention, sometimes improves with sedation. Extensor posturing. 09/16 Off continuous sedation. Comatose with myoclonus. Corneal reflex present on left, absent on right. ICP monitor removed today per NSG. Subjective: 09/17: no significant neurologic improvement. off sedation. only intermittent ativan for myoclonus which improves symptoms. family meeting today, and family requests aggressive care, including trach/peg. Objective Vital Signs Date Time Temp Pulse Resp B/P Pulse Ox O2 Delivery O2 Flow Rate FiO2 09/17/16 12:00 100.1 119 22 114/68 95 09/17/16 12:00 40 Intake and Output 09/16/16 09/16/16 09/17/16 08:00 16:00 00:00 Intake Total 994 ml 976 ml 404 ml Output Total 1875 ml 2050 ml 2350 ml Balance -881 ml -1074 ml -1946 ml Result Diagram: 09/17/16 0615 09/17/16 0615 Imaging Last [address] 09/07/16 1800 Signed Impressions: Service Date/Time: Wednesday, September 07, 2016 18:06 - CONCLUSION: Normal examination. Artem Madera MD Chest X-Ray 09/07/16 1800 Signed Impressions: Service Date/Time: Wednesday, September 07, 2016 17:49 - CONCLUSION: Subtle densities in the upper lobes. Otherwise unremarkable chest. Artem Madera MD ADDENDUM: See above. Artem Madera MD Cervical Spine CT 09/07/16 1800 Signed Impressions: Service Date/Time: Wednesday, September 07, 2016 18:06 - CONCLUSION: 1. No fracture or subluxation. 2. Scattered groundglass nodules throughout the upper lobes, nonspecific but can be seen with hypersensitivity pneumonitis. Artem Madera MD Objective Remarks GENERAL: young female, lying in bed. Intubated. Comatose SKIN: Warm and dry. HEAD: Normocephalic. Pupils are 4 mm reactive to 3 mm bilaterally. EYES: No scleral icterus. No injection or drainage. NECK: trachea midline. No JVD. carotids palpable CARDIOVASCULAR: Tachycardic rhythm. No murmurs. RESPIRATORY: Breath sounds equal bilaterally, intermittently tachypneic on the ventilator. Clear to auscultation anteriorly GASTROINTESTINAL: Abdomen soft, non-tender, distended. MUSCULOSKELETAL: No cyanosis, 1+ edema. NEURO: Intubated, off all sedation. +pupil reflex as per above. Slight corneal reflex present on the left , absent on the right. No cough or gag. Eye movement with oculocephalic is very slight but not completely absent. No spontaneous eye opening, eye movement or tracking. General myoclonic movements. No motor response to deep central or peripheral noxious stimuli. (previously extensor posturing) A/P Assessment and Plan Assessment: 20yF s/p hanging event and s/p cardiac arrest with severe anoxic injury. family continues to want aggressive care. will proceed with trach/peg and placement Severe anoxic brain injury Bilateral common carotid narrowing Attempted suicide by hanging Seizure Depression - MRI shows evidence of diffuse anoxic brain injury. - MRI with bilateral common carotid narrowing-vascular surgery consulted, no intervention. started aspirin 09/10, held when she developed thrombocytopenia - CT 09/12-loss salguero/white matter differentiation c/w cerebral edema. ICP monitor placed 09/12 , removed 09/16. - EEG 09/10 bilateral sharp activity continue Dilantin. Level therapeutic 09/12. EEG 09/11 Encephalopathy, no sz. EEG 09/13severe encephalopathy. (delta waves) - s/p induced hypothermia. - Neurology Dr. Wong following. Discussed with him and he states prognosis is poor and he would agree with recommendation for comfort measures. -NSG Dr. José states poor prognosis, recommends comfort care. - Toxicology negative - ativan for symptomatic control for severe myoclonus. -Oxycodone for pain. Fentanyl prn CV: Shock resolved Status postcardiac arrest - Off levophed which was used to maintain CPP Resp: Acute hypoxemic respiratory failure Pre-hospital Aspiration pneumonitis Acute lung injury - Intubated for hypoxemic respiratory failure from pre hospital aspiration - PRVC, ventilator bundle. DuoNeb every 6 hours and when necessary - will start daily SBTs - Patient has evidence of aspiration on admission as indicated by right lower lobe infiltrate - will proceed with trach. GI: Transaminitis most likely from shock, resolved. - Tube feedings Jevity 1.5 at 50 L per hour per nutrition recommendations. - Had bowel and after mag citrate was given. -Liver ultrasound 09/12large nonocclusive thrombus and IVC. Small Pericholecystic fluid and gallbladder wall thickening raising possibility of cholecystitis. -Followup CMP stable. Will continue clinical monitoring. Renal: Acute kidney injury- resolved. Fluid overload- persistent. - Benjamin catheter, monitor BUN/creatinine ID: Septic, neurogenic shock-resolved Aspiration pneumonia, prehospital Sputum with MSSA 09/08. - Zosyn 4.5 g IV every 6 hours 09/08-09/15 #8 . Temp max 100.1, may be secondary to DVT. Off vancomycin. - continue to hold off on abx, clinically stable. Endo: - Electrolyte replacement per protocol - Sliding-scale insulin if needed HEME: Leukopenia, resolved Thrombocytopenia consumptive Large IVC thrombus - Monitor CBC CMP coags. - IVC filter placed 09/12 due to inability to anticoagulate (thrombocytopenia ). - This was discussed with hematology Dr. Kwok and neurologist surgeon Dr. Davenport -Now platelets improved, consider initiation of anticoagulation. 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 will send KP today to decide upon appropriate anticoagulant since our goals of care remain aggressive. DVT GI prophylaxis - IVC filter in place. Continue po ppi. Lines: - Right femoral cooling catheter and right brachial arterial line placed by Dr. England-DC both. L subclavian central line 09/10/16 #7. L radial art line 09/12/16 # 4 - d/c both today. Findings of status myoclonus, persistent coma with extensor posturing vs absent motor response are consistent with poor prognosis for functional neurologic recovery. MRI demonstrates evidence of anoxic injury. Discussed with family poor prognosis and would expect her to require trach/PEG and be dependent for ADL in nursing facility. 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 She states that she "already had suffered plenty from her depression and psychological demons". However, after full and detailed conversation with Dr. Bragg and the palliative care team, they now want to pursue tracheostomy/PEG tube placement, and give her at least a few more weeks to attempt to improve. Congruent with her wishes, we will proceed with trach/peg. Level 2 Followup. Lizandro Barry MD Sep 17, 2016 13:33
--- NOTE | 2016-09-17 15:15 | PD.PROCEDR ---
Procedure Note Procedure DX: Respiratory Failure (J96.11) OP: Therapeutic Bronchoscopy (48032) Procedure: Time out performed. Usual ICU monitoring in place, patient intubated and ventilated. The scope was introduced through a sealed elbow in the vent circuit. The tracheobronchial tree revealed normal anatomy down to the tertiary bronchial segments. Thick secretions were suctioned from segments in both sides. Mucosa was clean and not inflamed. The orotracheal tube and bronchoscope were then withdrawn slowly to the level of the cricoid. This allowed visualization for the percutaneous tracheostomy procedure dictated under a separate note. Position of the trach was confirmed with passage of the scope through the new tube and visualization of the serafin. Ventilation was then converted to the nerw trach tube. Sats were maintained > 90% throughout the procedure. Gary Syed MD Sep 17, 2016 15:15
--- NOTE | 2016-09-17 16:00 | PD.CONS ---
HPI History of Present Illness This is a 20 year old female who was brought [place] [facility] [place] being found hanging from pull up bar, she was in asystole when EMS arrived. s/p trach today. Has anoxic brain injury and little neurological improvement. GI has been consulted for PEG tube placement. (Mary Maynard) PFSH Past Medical History * anoxic brain injury * Status post hanging suicide attempt versus gesture * Myoclonus * History of depression . (Mary Maynard) Coded Allergies: No Known Allergies (Unverified , 09/07/16) Family History Last Impressions Chest X-Ray 09/17/16 0600 Signed Impressions: Service Date/Time: Saturday, September 17, 2016 05:56 - CONCLUSION: 1. Resolving pulmonary edema. Satinder Lira MD Liver Ultrasound 09/12/16 0000 Signed Impressions: Service Date/Time: Monday, September 12, 2016 16:15 - CONCLUSION: 1. 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 2. Pericholecystic fluid and gallbladder wall thickening raising the possibility of cholecystitis. A hepatobiliary scan may be helpful to confirm cystic duct obstruction if clinically indicated. 3. Gallbladder sludge. 4. Ascites. 5. Bilateral pleural effusions. 6. Mild hepatomegaly. 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 This is nonocclusive. A retrievable IVC filter was deployed below the main hepatic veins but it was necessary to cross an accessory right hepatic vein. Jose Armando Jackson Jr., MD Head CT 09/12/16 0000 Signed Impressions: Service Date/Time: Monday, September 12, 2016 09:29 - CONCLUSION: Mild loss of lemos matter definition that can be seen with increasing intracranial pressure. Ricki Cavazos MD FACR Neck Magnetic Resonance Angiography 09/09/16 0000 Signed Impressions: Service Date/Time: August 16:02 - CONCLUSION: 1. Moderate to severe smooth narrowing of the left common carotid artery and also moderate narrowing of the proximal right common carotid artery as well as narrowing of both proximal vertebral arteries likely related to recent hanging. Etiology could be related to vasospasm or recent extrinsic prolonged compression. The distal internal carotid arteries and vertebral artery have more normal calibers. Findings called to Dr. Bhatt at the time of dictation. Gideon Brown MD Cervical Spine MRI 09/09/16 0000 Signed Impressions: Service Date/Time: August 16:02 - CONCLUSION: 1. Very minimal degenerative disc disease at C5-6. 2. No acute fracture or prevertebral soft tissue swelling. 3. No focal cervical cord abnormality. Tray Santiago MD Brain MRI 09/09/16 0000 Signed Impressions: Service Date/Time: August 16:02 - CONCLUSION: 1. Diffuse FLAIR-weighted hyperintensities involving the caudate nuclei bilaterally, bilateral hummel radiata, as well as the bilateral parietal and occipital cortex consistent with the patient's clinical diagnosis of anoxic encephalopathy. 2. No acute hemorrhage, midline shift, extra-axial fluid collection or abnormal enhancement. 3. Small fluid level within the right sphenoid sinus. Tray Santiago MD Cervical Spine CT 09/07/16 1800 Signed Impressions: Service Date/Time: Wednesday, September 07, 2016 18:06 - CONCLUSION: 1. No fracture or subluxation. 2. Scattered groundglass nodules throughout the upper lobes, nonspecific but can be seen with hypersensitivity pneumonitis. Artem Madera MD (Mary Maynard) Review of Systems ROS non contributory (Mary Maynard) GI Exam Vitals I&O Vital Signs Date Time Temp Pulse Resp B/P Pulse Ox O2 Delivery O2 Flow Rate FiO2 09/17/16 15:35 100 40 09/17/16 14:40 24 09/17/16 14:40 24 09/17/16 13:19 22 09/17/16 12:00 100.1 119 22 114/68 95 09/17/16 12:00 119 09/17/16 12:00 40 09/17/16 11:34 96 40 09/17/16 10:00 123 09/17/16 09:24 28 09/17/16 08:24 92 40 09/17/16 08:00 40 09/17/16 08:00 101.0 126 29 114/61 95 09/17/16 08:00 126 09/17/16 06:00 122 09/17/16 04:51 95 40 09/17/16 04:00 40 09/17/16 04:00 118 09/17/16 04:00 100.6 118 29 134/82 95 09/17/16 02:18 40 09/17/16 02:00 116 09/17/16 01:47 96 40 09/17/16 00:00 101.2 120 24 130/72 95 09/17/16 00:00 40 09/17/16 00:00 120 09/16/16 22:12 97 40 09/16/16 22:00 118 09/16/16 20:00 122 09/16/16 20:00 101.2 122 22 130/72 96 09/16/16 20:00 40 09/16/16 19:32 99 40 09/16/16 18:00 122 09/16/16 17:25 96 40 09/16/16 16:00 118 09/16/16 16:00 40 09/16/16 16:00 101.1 118 25 132/70 98 I/O 09/16/16 09/16/16 09/16/16 09/17/16 09/17/16 09/17/16 07:00 15:00 23:00 07:00 15:00 23:00 Intake Total 994 ml 976 ml 404 ml 359 ml Output Total 1875 ml 2050 ml 2350 ml 1625 ml Balance -881 ml -1074 ml -1946 ml -1266 ml Intake IV Total 508 ml 515 ml 0 ml 0 ml Tube Feeding 366 ml 401 ml 344 ml 299 ml Tube Irrigant 120 ml 60 ml 60 ml 60 ml Output Urine Total 1875 ml 1850 ml 2300 ml 1550 ml Stool Total 200 ml 50 ml 75 ml # Bowel Movements 0 # Sanitary Pads 1 Pads 1 Pads 1 Pads Imaging Last Impressions Chest X-Ray 09/17/16 0600 Signed Impressions: Service Date/Time: Saturday, September 17, 2016 05:56 - CONCLUSION: 1. Resolving pulmonary edema. Satinder Lira MD Liver Ultrasound 09/12/16 0000 Signed Impressions: Service Date/Time: Monday, September 12, 2016 16:15 - CONCLUSION: 1. 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 2. Pericholecystic fluid and gallbladder wall thickening raising the possibility of cholecystitis. A hepatobiliary scan may be helpful to confirm cystic duct obstruction if clinically indicated. 3. Gallbladder sludge. 4. Ascites. 5. Bilateral pleural effusions. 6. Mild hepatomegaly. 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 This is nonocclusive. A retrievable IVC filter was deployed below the main hepatic veins but it was necessary to cross an accessory right hepatic vein. Jose Armando Jackson Jr., MD Head CT 09/12/16 Signed Impressions: Service Date/Time: Monday, September 12, 2016 09:29 - CONCLUSION: Mild loss of lemos matter definition that can be seen with increasing intracranial pressure. Ricki Cavazos MD FACR Neck Magnetic Resonance Angiography 09/09/16 Signed Impressions: Service Date/Time: August 16:02 - CONCLUSION: 1. Moderate to severe smooth narrowing of the left common carotid artery and also moderate narrowing of the proximal right common carotid artery as well as narrowing of both proximal vertebral arteries likely related to recent hanging. Etiology could be related to vasospasm or recent extrinsic prolonged compression. The distal internal carotid arteries and vertebral artery have more normal calibers. Findings called to Dr. Bhatt at the time of dictation. Gideon Brown MD Cervical Spine MRI 09/09/16 Signed Impressions: Service Date/Time: August 16:02 - CONCLUSION: 1. Very minimal degenerative disc disease at C5-6. 2. No acute fracture or prevertebral soft tissue swelling. 3. No focal cervical cord abnormality. Tray Santiago MD Brain MRI 09/09/16 Signed Impressions: Service Date/Time: August 16:02 - CONCLUSION: 1. Diffuse FLAIR-weighted hyperintensities involving the caudate nuclei bilaterally, bilateral hummel radiata, as well as the bilateral parietal and occipital cortex consistent with the patient's clinical diagnosis of anoxic encephalopathy. 2. No acute hemorrhage, midline shift, extra-axial fluid collection or abnormal enhancement. 3. Small fluid level within the right sphenoid sinus. Tray Santiago MD Cervical Spine CT 09/07/16 1800 Signed Impressions: Service Date/Time: Wednesday, September 07, 2016 18:06 - CONCLUSION: 1. No fracture or subluxation. 2. Scattered groundglass nodules throughout the upper lobes, nonspecific but can be seen with hypersensitivity pneumonitis. Artem Madera MD Laboratory Test 09/17/16 06:15 White Blood Count 7.3 TH/MM3 Red Blood Count 3.61 MIL/MM3 Hemoglobin 10.0 GM/DL Hematocrit 29.9 % Mean Corpuscular Volume 82.8 FL Mean Corpuscular Hemoglobin 27.7 PG Mean Corpuscular Hemoglobin 33.5 % Concent Red Cell Distribution Width 15.2 % Platelet Count 210 TH/MM3 Mean Platelet Volume 7.2 FL Urine Color LIGHT-YELLOW Urine Turbidity CLOUDY Urine pH 8.0 Urine Specific [place] 1.013 Urine Protein TRACE mg/dL Urine Glucose (UA) NEG mg/dL Urine Ketones NEG mg/dL Urine Occult Blood NEG Urine Nitrite NEG Urine Bilirubin NEG Urine Urobilinogen LESS THAN 2.0 MG/DL Urine Leukocyte Esterase NEG Urine RBC 1 /hpf Urine WBC 2 /hpf Urine Amorphous Sediment MOD Urine Bacteria /hpf Microscopic Urinalysis Comment CULT NOT INDICATED Sodium Level 138 MEQ/L Potassium Level 3.9 MEQ/L Chloride Level 105 MEQ/L Carbon Dioxide Level 24.9 MEQ/L Anion Gap 8 MEQ/L Blood Urea Nitrogen 14 MG/DL Creatinine 0.76 MG/DL Estimat Glomerular Filtration 98 ML/MIN Rate Random Glucose 140 MG/DL Calcium Level 7.6 MG/DL Total Bilirubin 0.2 MG/DL Aspartate Amino Transf 56 U/L (AST/SGOT) Alanine Aminotransferase 26 U/L (ALT/SGPT) Alkaline Phosphatase 62 U/L Total Protein 5.9 GM/DL Albumin 1.9 GM/DL Date/Time Procedure Status Source Growth 09/17/16 07:23 Aerobic Blood Culture Received Blood Peripheral Pending 09/17/16 07:23 Anaerobic Blood Culture Received Blood Peripheral Pending 09/17/16 06:15 Gram Stain - Final Resulted Sputum Endotracheal 09/17/16 06:15 Sputum Culture Resulted Sputum Endotracheal Pending Physical Examination HEENT: normocephalic; atraumatic; no jaundice. intubated on vent CHEST: wheezes left side CARDIAC: RRR ABDOMEN: Soft, nondistended, nontender; no hepatosplenomegaly; bowel sounds are present in all four quadrants. EXTREMITIES: No clubbing, cyanosis, or edema. SKIN: Normal; no rash; no jaundice. 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 shaking BLE (Mary Maynard) Assessment and Plan Plan ASSESSMENT - dysphagia - need for long term care phlebotomist mechanical ventilation, s/p trach. GI consulted for PEG placement - severe anoxic brain injury, acute hypoxemic respiratory failure, per 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
--- NOTE | 2016-09-17 16:05 | RADRPT ---
EXAM DATE/TIME: 09/17/2016 15:35 [facility] COMPARISON: CHEST SINGLE AP, September 17, 2016, 5:56. INDICATIONS : Atelectasis. MEDICAL HISTORY : None. SURGICAL HISTORY : None. ENCOUNTER: Subsequent ACUITY: 4 - 6 days PAIN SCORE: Non-responsive. LOCATION: Bilateral chest FINDINGS: Trach tube is in good position. Nasogastric tube across the GE junction. Minimal air space disease persists in both lung stable minimal. Vena cava filters in place.CONCLUSION: Stable chest following tracheostomy tube placement. Ricki Cavazos MD FACR on September 17, 2016 at 16:03 Board Certified Radiologist. This report was verified electronically.
--- NOTE | 2016-09-17 16:46 | HHI.NSPN ---
Note Status Status: Progress Note Interval History Diagnosis anoxic encephalopathy Interval History The patient has a 20-year-old female brought in as a Trauma Alert. She was found hanging from a pull-up bar. She was in asystole at the scene, treated with epinephrine and regained a pressure after that. Initially she was unresponsive. GCS was 3. The patient has been unresponsive. There has been no seizure activity at present. 09/13. No clinical improvement. Comatose. Myoclonic jerks 09/14 has not shown any clinical improvement 09/15. Rwemains intubated and comatose without improvement 09/17. no significant neurologic improvement. off sedation. only intermittent ativan for myoclonus Labs, Micro, & Vital Signs Results Date Time Temp Pulse Resp B/P Pulse Ox O2 Delivery O2 Flow Rate FiO2 09/17/16 16:00 40 09/17/16 16:00 110 09/17/16 16:00 100.1 110 28 148/82 95 09/17/16 15:55 28 09/17/16 15:35 100 40 09/17/16 14:40 24 09/17/16 14:40 24 09/17/16 14:00 116 09/17/16 12:00 100.1 119 22 114/68 95 09/17/16 12:00 119 09/17/16 12:00 40 09/17/16 11:34 96 40 09/17/16 10:00 123 09/17/16 09:24 28 09/17/16 08:24 92 40 09/17/16 08:00 40 09/17/16 08:00 101.0 126 29 114/61 95 09/17/16 08:00 126 09/17/16 06:00 122 09/17/16 04:51 95 40 09/17/16 04:00 40 09/17/16 04:00 118 09/17/16 04:00 100.6 118 29 134/82 95 09/17/16 02:18 40 09/17/16 02:00 116 09/17/16 01:47 96 40 09/17/16 00:00 101.2 120 24 130/72 95 09/17/16 00:00 40 09/17/16 00:00 120 09/16/16 22:12 97 40 09/16/16 22:00 118 09/16/16 20:00 122 09/16/16 20:00 101.2 122 22 130/72 96 09/16/16 20:00 40 09/16/16 19:32 99 40 09/16/16 18:00 122 09/16/16 17:25 96 40 09/17/16 06:59 Intake Total 1739 ml Output Total 6025 ml Balance -4286 ml Constitutional Vital Signs Date Time Temp Pulse Resp B/P Pulse Ox O2 Delivery O2 Flow Rate FiO2 09/17/16 16:00 40 09/17/16 16:00 110 09/17/16 16:00 100.1 110 28 148/82 95 09/17/16 15:55 28 09/17/16 15:35 100 40 09/17/16 14:40 24 09/17/16 14:40 24 09/17/16 14:00 116 09/17/16 12:00 100.1 119 22 114/68 95 09/17/16 12:00 119 09/17/16 12:00 40 09/17/16 11:34 96 40 09/17/16 10:00 123 09/17/16 09:24 28 09/17/16 08:24 92 40 09/17/16 08:00 40 09/17/16 08:00 101.0 126 29 114/61 95 09/17/16 08:00 126 09/17/16 06:00 122 09/17/16 04:51 95 40 09/17/16 04:00 40 09/17/16 04:00 118 09/17/16 04:00 100.6 118 29 134/82 95 09/17/16 02:18 40 09/17/16 02:00 116 09/17/16 01:47 96 40 09/17/16 00:00 101.2 120 24 130/72 95 09/17/16 00:00 40 09/17/16 00:00 120 09/16/16 22:12 97 40 09/16/16 22:00 118 09/16/16 20:00 122 09/16/16 20:00 101.2 122 22 130/72 96 09/16/16 20:00 40 09/16/16 19:32 99 40 09/16/16 18:00 122 09/16/16 17:25 96 40 09/17/16 06:59 Intake Total 1739 ml Output Total 6025 ml Balance -4286 ml Review of Systems/Exam Exam She is intubated and sedated. No response to pain Myoclonic jerks Cranial Nerves: Pupils 2mm, non-reactive to light. Eyes appear conjugated. There was no nystagmus, no papilledema. Face musculature appeared symmetrical at rest. Face sensation, olfaction, visual phillips, and hearing cannot be adequately assessed due to his neurological condition. The patient has a corneal reflex. SHe has no gag reflex. The sternocleidomastoid and trapezius are symmetrical. Cervical Spine: Her neck is soft, supple, without nuchal rigidity. Motor: No response to pain Reflexes: Deep tendon reflexes are trace in the biceps, triceps, and brachioradialis, bilaterally, in the upper extremities. In the lower extremities, the patellar and ankles TRACE. There is a bilateral silent response to plantar stim. There is no clonus Sensory: On examination there is no response to painful stimuli Cerebellar: Examination cannot be adequately assessed due to the patient's neurological condition. Medical Decision Making MDM Remarks Last Impressions Chest X-Ray 09/13/16 0600 Signed Impressions: Service Date/Time: Tuesday, September 13, 2016 04:49 - CONCLUSION: 1. Hazy opacity in both lungs without significant change. This may represent pulmonary edema which may be noncardiogenic. 2. Artifact projected over the right suprahilar region limiting visualization. Seth Breen MD Liver Ultrasound 09/12/16 0000 Signed Impressions: Service Date/Time: Monday, September 12, 2016 16:15 - CONCLUSION: 1. 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 2. Pericholecystic fluid and gallbladder wall thickening raising the possibility of cholecystitis. A hepatobiliary scan may be helpful to confirm cystic duct obstruction if clinically indicated. 3. Gallbladder sludge. 4. Ascites. 5. Bilateral pleural effusions. 6. Mild hepatomegaly. 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 This is nonocclusive. A retrievable IVC filter was deployed below the main hepatic veins but it was necessary to cross an accessory right hepatic vein. Jose Armando Jackson Jr., MD Head CT 09/12/16 0000 Signed Impressions: Service Date/Time: Monday, September 12, 2016 09:29 - CONCLUSION: Mild loss of lemos matter definition that can be seen with increasing intracranial pressure. Ricki Cavazos MD FACR Neck Magnetic Resonance Angiography 09/09/16 0000 Signed Impressions: Service Date/Time: August 16:02 - CONCLUSION: 1. Moderate to severe smooth narrowing of the left common carotid artery and also moderate narrowing of the proximal right common carotid artery as well as narrowing of both proximal vertebral arteries likely related to recent hanging. Etiology could be related to vasospasm or recent extrinsic prolonged compression. The distal internal carotid arteries and vertebral artery have more normal calibers. Findings called to Dr. Bhatt at the time of dictation. Gideon Brown MD Cervical Spine MRI 09/09/16 0000 Signed Impressions: Service Date/Time: August 16:02 - CONCLUSION: 1. Very minimal degenerative disc disease at C5-6. 2. No acute fracture or prevertebral soft tissue swelling. 3. No focal cervical cord abnormality. Tray Santiago MD Brain MRI 09/09/16 0000 Signed Impressions: Service Date/Time: August 16:02 - CONCLUSION: 1. Diffuse FLAIR-weighted hyperintensities involving the caudate nuclei bilaterally, bilateral hummel radiata, as well as the bilateral parietal and occipital cortex consistent with the patient's clinical diagnosis of anoxic encephalopathy. 2. No acute hemorrhage, midline shift, extra-axial fluid collection or abnormal enhancement. 3. Small fluid level within the right sphenoid sinus. Tray Santiago MD Cervical Spine CT 09/07/16 1800 Signed Impressions: Service Date/Time: Wednesday, September 07, 2016 18:06 - CONCLUSION: 1. No fracture or subluxation. 2. Scattered groundglass nodules throughout the upper lobes, nonspecific but can be seen with hypersensitivity pneumonitis. Artem Madera MD Last Impressions Chest X-Ray 7/31/17 0600 Signed Impressions: Service Date/Time: Tuesday, September 13, 2016 04:49 - CONCLUSION: 1. Hazy opacity in both lungs without significant change. This may represent pulmonary edema which may be noncardiogenic. 2. Artifact projected over the right suprahilar region limiting visualization. Seth Breen MD Liver Ultrasound 09/12/16 0000 Signed Impressions: Service Date/Time: Monday, September 12, 2016 16:15 - CONCLUSION: 1. 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 2. Pericholecystic fluid and gallbladder wall thickening raising the possibility of cholecystitis. A hepatobiliary scan may be helpful to confirm cystic duct obstruction if clinically indicated. 3. Gallbladder sludge. 4. Ascites. 5. Bilateral pleural effusions. 6. Mild hepatomegaly. 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 This is nonocclusive. A retrievable IVC filter was deployed below the main hepatic veins but it was necessary to cross an accessory right hepatic vein. Jose Armando Jackson Jr., MD Head CT 09/12/16 Signed Impressions: Service Date/Time: Monday, September 12, 2016 09:29 - CONCLUSION: Mild loss of lemos matter definition that can be seen with increasing intracranial pressure. Ricki Cavazos MD FACR Neck Magnetic Resonance Angiography 09/09/16 0000 Signed Impressions: Service Date/Time: August 16:02 - CONCLUSION: 1. Moderate to severe smooth narrowing of the left common carotid artery and also moderate narrowing of the proximal right common carotid artery as well as narrowing of both proximal vertebral arteries likely related to recent hanging. Etiology could be related to vasospasm or recent extrinsic prolonged compression. The distal internal carotid arteries and vertebral artery have more normal calibers. Findings called to Dr. Bhatt at the time of dictation. Gideon Brown MD Cervical Spine MRI 09/09/16 0000 Signed Impressions: Service Date/Time: August 16:02 - CONCLUSION: 1. Very minimal degenerative disc disease at C5-6. 2. No acute fracture or prevertebral soft tissue swelling. 3. No focal cervical cord abnormality. Tray Santiago MD Brain MRI 09/09/16 0000 Signed Impressions: Service Date/Time: August 16:02 - CONCLUSION: 1. Diffuse FLAIR-weighted hyperintensities involving the caudate nuclei bilaterally, bilateral hummel radiata, as well as the bilateral parietal and occipital cortex consistent with the patient's clinical diagnosis of anoxic encephalopathy. 2. No acute hemorrhage, midline shift, extra-axial fluid collection or abnormal enhancement. 3. Small fluid level within the right sphenoid sinus. Tray Santiago MD Cervical Spine CT 09/07/16 1800 Signed Impressions: Service Date/Time: Wednesday, September 07, 2016 18:06 - CONCLUSION: 1. No fracture or subluxation. 2. Scattered groundglass nodules throughout the upper lobes, nonspecific but can be seen with hypersensitivity pneumonitis. Artem Madera MD Plan Plan Remarks Current Medications Etomidate 40 mg 40 mg STK-MED ONCE .ROUTE ; Start 09/07/16 at 17:53; Stop at 17:54; Status DC Propofol (Diprivan 1000 Mg/100ml Inj) 100 ml @ As Directed STK-MED ONCE .ROUTE ; Start 09/07/16 at 18:14; Stop 09/07/16 at 18:15; Status DC Succinylcholine Chloride 200 mg 200 mg STK-MED ONCE .ROUTE ; Start 09/07/16 at 18:38; Stop 09/07/16 at 18:39; Status DC Sodium Chloride (NS 1000 ml Inj) 1,000 ml @ 100 mls/hr Q10H IV Last administered on 09/07/16t 19:30; Start 09/07/16 at 19:30; Stop 09/08/16 at 03:31 ; Status DC Sodium Chloride (NS Flush) 2 ml UNSCH PRN IV FLUSH FLUSH AFTER USING IV ACCESS ; Start 09/07/16 at 18:45; Stop 09/12/16 at 17:55; Status DC Enalaprilat (Vasotec Inj) 1.25 mg Q8H PRN IV SBP>180, DBP>95; Start 09/07/16 at 18:45 Ondansetron HCl (Zofran Inj) 4 mg Q6H PRN IV NAUSEA OR VOMITING; Start at 18:45 Pantoprazole Sodium (Protonix Inj) 40 mg Q24H IVP Last administered on 20:13; Start 09/07/16 at 20:00 Docusate Sodium (Colace) 100 mg BID PO Last administered on 09/09/16 21:33; Start 09/07/16 at 21:00; Stop 09/10/16 at 09:20; Status DC Magnesium Hydroxide (Milk Of Magnesia Liq) 30 ml Q6H PRN PO CONSTIPATION; Start 09/07/16 at 18:45 Miscellaneous Information 1 [id number] Last administered on 09/07/16 18:45; Start 09/07/16 at 18:45 Chlorhexidine Gluconate (Chlorhexidine 2% Cloth) Taper DAILY@04 TOP Last administered on 09/12/16 01:00; Start 09/08/16 at 04:00; Stop 09/04/17 at 03:59 Chlorhexidine Gluconate 3 pack 3 pack UNSCH PRN TOP HYGIENIC CARE; Start at 18:45 Propofol 100 ml @ As Directed STK-MED ONCE .ROUTE Last administered on 01:42; Start 09/07/16 at 19:20; Stop 09/07/16 at 19:21; Status DC Midazolam HCl (Versed 100 Mg/ ml Inj) 100 ml @ 0 mls/hr TITRATE IV Last administered on 09/07/16 21:33; Start 09/07/16 at 21:30; Stop 09/11/16 at 11:27 ; Status DC Lorazepam 1 mg 1 mg Q1H PRN IV SEIZURES Last administered on 09/14/16 02:45; Start 09/07/16 at 22:00 Midazolam HCl 100 ml @ 0 mls/hr TITRATE IV ; Start 09/07/16 at 22:00; Stop 09/07 at 22:00; Status DC Miscellaneous Information ml @ 0 mls/hr UNSCH IV ; Start 09/07/16 at 22:00 Sodium Chloride (NS Flush) 2 ml UNSCH PRN IV FLUSH FLUSH AFTER USING IV ACCESS ; Start 09/07/16 at 22:00 Sodium Chloride 2 ml 2 ml UNSCH PRN IV FLUSH IV FLUSH; Start 09/07/16 at 22:00 Sodium Chloride (NS 1000 ml Inj) 1,000 ml @ 2,000 mls/hr Q30M IV Last administered on 09/08/16 00:23; Start 09/07/16 at 22:00; Stop 09/07/16 at 22:59 ; Status DC Artificial Tears 1 applic 1 applic Q4H PRN EACH EYE SEE LABEL COMMENTS Last administered on 09/12/16 01:00; Start 09/07/16 at 22:00 Cisatracurium Besylate 100 mg/ Sodium Chloride 250 ml @ 0 mls/hr TITRATE PRN IV ONLY IF SHIVERING Last administered on 09/08/16 08:21; Start 09/07/16 at 21: 30; Stop 09/09/16 at 07:48; Status DC Norepinephrine Bitartrate 4 mg/ Sodium Chloride 250 ml @ 0 mls/hr TITRATE IV ; Start 09/07/16 at 21:30; Stop 09/08/16 at 12:56; Status DC Sodium Chloride 2,000 ml @ 0 mls/hr NOW IV ; Start 09/07/16 at 23:00; Stop at 23:56; Status DC Potassium Chloride 100 ml @ 50 mls/hr Q2H PRN IV For Potassium 2.8 - 3.2 mEq/ L Last administered on 09/13/16 09:02; Start 09/08/16 at 00:30 Potassium Chloride (KCl 20 Meq Premix Inj) 100 ml @ 50 mls/hr Q2H PRN IV For Potassium 2.8 - 3.2 mEq/L Last administered on 09/08/16 18:20; Start 09/08/16 at 00:30 Potassium Bicarb/ Potassium Chloride 50 meq 50 meq UNSCH PRN PO For Potassium 3.3 - 3.5 mEq/L; Start 09/08/16 at 00:30 Potassium Chloride 100 ml @ 25 mls/hr UNSCH PRN IV For Potassium 3.3 - 3.5 mEq /L Last administered on 09/09/16 10:06; Start 09/08/16 at 00:30 Potassium Chloride 100 ml @ 50 mls/hr Q2H PRN IV For Potassium 3.3 - 3.5 mEq/L ; Start 09/08/16 at 00:30 Magnesium Sulfate/ Sodium Chloride (Magnesium Sulfate Inj/NS Inj) 100 ml @ 50 mls/hr UNSCH PRN IV For Magnesium 0.9 - 1.1 mg/dL; Start 09/08/16 at 00:30 Magnesium Oxide 800 mg 800 mg UNSCH PRN PO For Magnesium 1.2 - 1.6 mg/dL; Start 09/08/16 at 00:30 Magnesium Sulfate/ Sodium Chloride (Magnesium Sulfate Inj/NS Inj) 100 ml @ 50 mls/hr UNSCH PRN IV For Magnesium 1.2 - 1.6 mg/dL Last administered on 07:11; Start 09/08/16 at 00:30 Potassium Phosphate 2000 mg 2,000 mg Q4H PRN PO For Phosphorus < 2.5 mg/dL; Start 09/08/16 at 00:30 Sodium Phosphate/ Sodium Chloride (Sodium Phosphate Inj/NS 250 ml Inj) 250 ml @ 42 mls/hr UNSCH PRN IV For Phosphorus < 2.5 mg/dL; Start 09/08/16 at 00:30 Potassium Phosphate 2000 mg 2,000 mg UNSCH PRN PO/TUBE SEE LABEL COMMENTS; Start 09/08/16 at 00:30 Potassium Phosphate 30 mmol/ Sodium Chloride 260 ml @ 42 mls/hr UNSCH PRN IV SEE LABEL COMMENTS; Start 09/08/16 at 00:30 Propofol 100 ml @ As Directed STK-MED ONCE .ROUTE ; Start 09/08/16 at 01:36; Stop 09/08/16 at 01:37; Status DC Propofol (Diprivan 1000 Mg/100ml Inj) 100 ml @ 0 mls/hr TITRATE IV Last administered on 09/14/16 11:13; Start 09/08/16 at 02:00 Vecuronium [place] 10 mg 10 mg STK-MED ONCE .ROUTE ; Start 09/08/16 at 02:33; Stop 09/08/16 at 02:34; Status DC Sodium Chloride (NS 1000 ml Inj) 1,000 ml @ 0 mls/hr NOW IV Last administered on 09/08/16 02:44; Start 09/08/16 at 02:45; Stop 09/08/16 at 03:20; Status DC Vecuronium [place] 10 mg 10 mg NOW IV Last administered on 09/08/16 02:43; Start 09/08/16 at 02:35; Stop 09/08/16 at 02:46; Status DC Sodium Bicarbonate 150 meq/Dextrose 1,150 ml @ 100 mls/hr [id number] IV Last administered on 09/08/16 03:53; Start 09/08/16 at 04:00; Stop 09/08/16 at 12:56 ; Status DC Fentanyl Citrate (fentaNYL DRIP) 250 ml @ 0 mls/hr TITRATE IV Last administered on 09/08/16 05:06; Start 09/08/16 at 05:00; Stop 09/11/16 at 11:27 ; Status DC Phenylephrine HCl (Neosynephrine Inj) 10 mg STK-MED ONCE .ROUTE ; Start at 07:00; Stop 09/08/16 at 07:02; Status DC Phenylephrine HCl 10 mg 10 mg STK-MED ONCE .ROUTE ; Start 09/08/16 at 07:06; Stop 09/08/16 at 07:07; Status DC Piperacillin Sod/ Tazobactam Sod (Zosyn 4.5 Gm Premix) 100 ml @ 200 mls/hr Q6H IV Last administered on 09/14/16 14:00; Start 09/08/16 at 08:00 Terbutaline Sulfate 1 mg 1 mg UNSCH PRN SQ For Extravasation; Start 09/08/16 at 07:30; Stop 09/08/16 at 13:02; Status DC Phenylephrine HCl 160 mg/Dextrose 500 ml @ 0 mls/hr TITRATE IV ; Start 09/08/16 at 07:30; Stop 09/08/16 at 12:57; Status DC Sodium Chloride (NS 1000 ml Inj) 1,000 ml @ 999 mls/hr BOLUS ONCE IV Last administered on 09/08/16 07:30; Start 09/08/16 at 07:30; Stop 09/08/16 at 08:30 ; Status DC Albumin Human 25 gm 25 gm ONCE ONCE IV Last administered on 09/08/16 08:05; Start 09/08/16 at 08:00; Stop 09/08/16 at 08:01; Status DC Vancomycin HCl 1000 mg/Sodium Chloride 250 ml @ 250 mls/hr ONCE ONCE IV Last administered on 09/08/16 09:01; Start 09/08/16 at 08:30; Stop 09/08/16 at 09:29 ; Status DC Sodium Bicarbonate (Sodium Bicarbonate 8.4% Inj) 50 ml @ As Directed STK-MED ONCE .ROUTE ; Start 09/08/16 at 08:49; Stop 09/08/16 at 08:50; Status DC Sodium Bicarbonate 100 meq 100 meq STAT ONCE IV Last administered on 09:00; Start 09/08/16 at 11:00; Stop 09/08/16 at 11:01; Status DC Norepinephrine Bitartrate/Sodium Chloride (Levophed Inj/NS 250 ml Inj) 250 ml @ 0 mls/hr TITRATE IV Last administered on 09/09/16 17:54; Start 09/08/16 at 13: 00; Stop 09/09/16 at 11:11; Status DC Terbutaline Sulfate 1 mg 1 mg UNSCH PRN SQ For Extravasation; Start 09/08/16 at 13:00; Stop 09/09/16 at 17:47; Status DC Sodium Bicarbonate 150 meq/Sterile Water 1,150 ml @ 150 mls/hr Q7H40M IV Last administered on 09/09/16 05:26; Start 09/08/16 at 15:00; Stop 09/09/16 at 07:47 ; Status DC Sodium Chloride 1,000 ml @ 0 mls/hr BOLUS ONCE IV Last administered on 14:00; Start 09/08/16 at 14:15; Stop 09/08/16 at 14:16; Status DC Sodium Chloride 1,000 ml @ 0 mls/hr BOLUS ONCE IV ; Start 09/08/16 at 14:30; Stop 09/08/16 at 14:31; Status Cancel Sodium Chloride (NS 1000 ml Inj) 1,000 ml @ 999 mls/hr BOLUS ONCE IV Last administered on 09/08/16 18:00; Start 09/08/16 at 18:00; Stop 09/08/16 at 19:00 ; Status DC Lorazepam (Ativan Inj) 2 mg STK-MED ONCE .ROUTE ; Start 09/09/16 at 06:53; Stop 09/09/16 at 06:54; Status DC Lorazepam (Ativan Inj) 4 mg STK-MED ONCE .ROUTE ; Start 09/09/16 at 06:57; Stop 09/09/16 at 06:58; Status DC Phenylephrine HCl (Neosynephrine Inj) 40 mg STK-MED ONCE .ROUTE ; Start at 07:33; Stop 09/09/16 at 07:34; Status DC Phenylephrine HCl 40 mg 40 mg STK-MED ONCE .ROUTE ; Start 09/09/16 at 07:34; Stop 09/09/16 at 07:35; Status DC Fosphenytoin Sodium/Sodium Chloride (Cerebyx Inj/NS Inj) 70 ml @ 280 mls/hr ONCE ONCE IV Last administered on 09/09/16 08:15; Start 09/09/16 at 09:00; Stop 09/09/16 at 09:14; Status DC Fosphenytoin Sodium (Cerebyx Inj) 100 mgpe Q8HR IV Last administered on 14:00; Start 09/09/16 at 14:00 Lorazepam 6 mg 6 mg ONCE ONCE IV Last administered on 09/09/16 07:00; Start 09/09/16 at 08:00; Stop 09/09/16 at 08:01; Status DC Phenylephrine HCl/ Dextrose (Neosynephrine Inj/D5W 500 ml Inj) 500 ml @ 0 mls/ hr TITRATE IV ; Start 09/09/16 at 09:45; Stop 09/09/16 at 09:45; Status DC Terbutaline Sulfate 1 mg 1 mg UNSCH PRN SQ FOR EXTRAVASATION PROTOCOL; Start at 09:45; Stop 09/13/16 at 08:38; Status DC Phenylephrine HCl 40 mg/Sodium Chloride 500 ml @ 0 mls/hr TITRATE IV Last administered on 09/09/16 17:55; Start 09/09/16 at 09:45; Stop 09/09/16 at 17:47 ; Status DC Vancomycin HCl 1000 mg/Sodium Chloride 250 ml @ 250 mls/hr ONCE ONCE IV Last administered on 09/09/16 11:23; Start 09/09/16 at 10:45; Stop 09/09/16 at 11:44 ; Status DC Pharmacy Profile Note 0 ml @ 0 mls/hr UNSCH OTHER ; Start 09/09/16 at 10:45; Stop 09/13/16 at 08:39; Status DC Norepinephrine Bitartrate 4 mg/ Sodium Chloride 250 ml @ 0 mls/hr TITRATE IV Last administered on 09/09/16 15:33; Start 09/09/16 at 11:15; Stop 09/09/16 at 17:47; Status DC Vancomycin HCl/ Sodium Chloride (Vancomycin Inj/ NS 250 ml Inj) 250 ml @ 250 mls/hr Q8H IV Last administered on 09/11/16 05:52; Start 09/09/16 at 20:00; Stop 09/11/16 at 12:58; Status DC Miscellaneous Information SPECIFIC LAB TO BE DRAWN:VANCOMYCIN TROUGH DATE TO... ONCE ONCE .XX Last administered on 09/10/16 11:27; Start 09/10/16 at 11:45; Stop 09/10/16 at 11:46; Status DC Sodium Chloride (NS 1000 ml Inj) 1,000 ml @ 999 mls/hr Q1H1M IV Last administered on 09/09/16 11:00; Start 09/09/16 at 11:45; Stop 09/09/16 at 13:45 ; Status DC Gadodiamide 20 ml 20 ml STK-MED ONCE IV Last administered on 09/09/16 16:39; Start 09/09/16 at 16:39; Stop 09/09/16 at 16:40; Status DC Phenylephrine HCl/ Dextrose (Neosynephrine Inj/D5W 500 ml Inj) 500 ml @ 0 mls/ hr TITRATE IV ; Start 09/09/16 at 18:00; Stop 09/09/16 at 18:00; Status DC Terbutaline Sulfate 1 mg 1 mg UNSCH PRN SQ FOR EXTRAVASATION PROTOCOL; Start at 18:00; Stop 09/13/16 at 08:38; Status DC Norepinephrine Bitartrate 16 mg/ Dextrose 250 ml @ 0 mls/hr TITRATE IV ; Start 09/09/16 at 18:00; Stop 09/09/16 at 18:00; Status DC Phenylephrine HCl 160 mg/Sodium Chloride 500 ml @ 0 mls/hr TITRATE IV Last administered on 09/10/16 04:52; Start 09/09/16 at 18:00; Stop 09/11/16 at 11:27 ; Status DC Norepinephrine Bitartrate/Sodium Chloride (Levophed Inj/NS 250 ml Inj) 250 ml @ 0 mls/hr TITRATE IV Last administered on 09/10/16 04:52; Start 09/09/16 at 18: 00; Stop 09/13/16 at 08:39; Status DC Aspirin (Aspirin Chew) 81 mg DAILY CHEW Last administered on 09/13/16 10:09; Start 09/10/16 at 09:00; Status Hold Artificial Tears (Tears Naturale Opth Soln) 1 drop BID EACH EYE Last administered on 09/14/16 09:42; Start 09/10/16 at 21:00 Docusate Sodium (Colace Liq) 100 mg BID PO Last administered on 09/13/16 20:13 ; Start 09/10/16 at 21:00 Midazolam HCl (Versed Inj) 5 mg STK-MED ONCE .ROUTE ; Start 09/10/16 at 09:43; Stop 09/10/16 at 09:44; Status DC Acetaminophen (Tylenol 650 Mg/ 20 ml Liq) 650 mg NOW ONCE PO Last administered on 09/10/16 11:19; Start 09/10/16 at 10:30; Stop 09/10/16 at 10:31 ; Status DC Dextrose (D50w (Syr) Inj) 50 ml STK-MED ONCE .ROUTE ; Start 09/10/16 at 12:49; Stop 09/10/16 at 12:50; Status DC Dextrose (D50w (Syr) Inj) 50 ml NOW ONCE IV PUSH Last administered on 12:45; Start 09/10/16 at 13:30; Stop 09/10/16 at 13:31; Status DC Miscellaneous Information SPECIFIC LAB TO BE DRAWN:VANCOMYCIN TROUGH DATE TO... ONCE ONCE .XX Last administered on 09/11/16 11:45; Start 09/11/16 at 11:45; Stop 09/11/16 at 11:46; Status DC Midazolam HCl (Versed Inj) 3 mg ONCE ONCE IV PUSH Last administered on 09:44; Start 09/10/16 at 14:15; Stop 09/10/16 at 14:16; Status DC Dextrose 50 ml 50 ml NOW ONCE IV PUSH Last administered on 09/10/16 16:09; Start 09/10/16 at 16:00; Stop 09/10/16 at 16:34; Status DC Sodium Chloride (NS 1000 ml Inj) 1,000 ml @ 100 mls/hr Q10H IV Last administered on 8/1/17at 11:10; Start 09/11/16 at 12:00 Propranolol HCl (Inderal) 20 mg Q8HR PO Last administered on 09/12/16 04:44; Start 09/11/16 at 14:00; Stop 09/12/16 at 17:13; Status DC Magnesium Citrate (Citroma Liq) 300 ml ONCE ONCE NG ; Start 09/12/16 at 09:00; Stop 09/12/16 at 09:01; Status DC Lactulose 30 ml 30 ml QID PO Last administered on 09/13/16 10:08; Start at 09:00 Vancomycin HCl/ Sodium Chloride (Vancomycin Inj/ NS 250 ml Inj) 250 ml @ 250 mls/hr Q12H IV Last administered on 09/12/16 21:29; Start 09/12/16 at 10:00; Stop 09/13/16 at 08:39; Status DC Miscellaneous Information SPECIFIC LAB TO BE CHANDU... ONCE ONCE .XX ; Start at 09:45; Stop 09/14/16 at 09:45; Status DC Furosemide (Lasix Inj) 20 mg ONCE ONCE IV PUSH Last administered on 09/12/16 12:04; Start 09/12/16 at 09:30; Stop 09/12/16 at 09:31; Status DC Mannitol 12.5 gm 12.5 gm Q8H IV Last administered on 09/12/16 15:37; Start at 14:00; Stop 09/12/16 at 21:51; Status DC Sodium Chloride 188 meq/Sodium Chloride 1,047 ml @ 20 mls/hr Q24H IV Last administered on 09/13/16 16:06; Start 09/12/16 at 16:00 Norepinephrine Bitartrate (Levophed-Dextrose Drip) 250 ml @ 0 mls/hr TITRATE IV Last administered on 09/13/16 06:51; Start 09/12/16 at 18:00 Terbutaline Sulfate (Brethine Inj) 1 mg UNSCH PRN SQ For Extravasation; Start 09/12/16 at 18:00 Iohexol (Omnipaque 350 Inj) 30 ml STK-MED ONCE IV Last administered on 21:02; Start 09/12/16 at 21:02; Stop 09/12/16 at 21:03; Status DC Mannitol (Mannitol Inj) 12.5 gm Q8H IV Last administered on 09/13/16 06:23; Start 09/12/16 at 23:00; Stop 09/17/16 at 14:59 Potassium Bicarb/ Potassium Chloride (K-Lyte Cl Eff) 25 meq DAILY PO Last administered on 09/14/16 09:43; Start 09/13/16 at 09:00 Magnesium Citrate (Citroma Liq) 300 ml ONCE ONCE PO ; Start 09/13/16 at 08:30; Stop 09/13/16 at 08:41; Status DC Bisacodyl (Dulcolax Supp) 10 mg DAILY RECTAL Last administered on 09/13/16 10: 09; Start 09/13/16 at 09:00 Attending Statement Continue neuro checks. Anoxic encephalopathy. ICP monitor removed yesterday. Recommend paliative care consultation Pulmonary. Continue mechanical ventilation. Continue aggressive pulmonary toilette, nasotracheal suction, and breathing treatments with nebulizers. Nutrition. NPO Renal. monitor closely urine output, BUN and creatinine Endocrine. Monitor serial Acu checks and SSI as needed in detail ID monitor for signs of infection Protonix for stress ulcer prophylaxis Carlitos tate and SCD's for DVT prophylaxis Jomar José MD Sep 17, 2016 16:46
[2016-09-17] MEDS: clonazePAM 1 MG TAB PO SCH (18:19)
--- NOTE | 2016-09-17 21:58 | PD.PROCEDR ---
Procedure Note Procedure Percutaneous Dilation Tracheostomy Tube Placement Diagnosis: Severe anoxic brain injury Indications: Subacute hypoxic and hypercarbic respiratory failure Anesthesia: Versed 10 mg IV Neuromuscular Blockade: cisatracurium 20 mg IV Anesthesia was provided by the bedside RN Description of the Procedure: The patient was sedated and paralyzed. The patient was positioned in the supine position with a chest roll. The patient's neck was slightly extended. Landmarks were palpated and the anatomy of the anterior neck was deemed normal. A time out procedure was performed. The patient was placed on a volume control mode of ventilation, on 100% FiO2. The patient was prepped and draped sterilely. A bronchoscope was inserted into the endotracheal tube for endoscopic guidance (see separate bronchoscopy procedure note). After negative aspiration, 1% lidocaine with 1:100k epinephrine was injected subcutaneously in the midline neck using a 21g needle for local anesthesia. An approximately 2cm skin incision was made using a #15 blade. The cricoid cartilage, thyroid tissue , and tracheal rings were palpated in the midline. Under direct bronchoscopic guidance, the cuff of the endotracheal tube was deflated and the endotracheal tube was retracted to a level above the level of the skin incision. At this point, a 15g introducer needle/catheter was advanced midline under negative aspiration with saline filled syringe until bubbles were seen and the needle and catheter were visualized in the lumen of the trachea. The needle was withdrawn leaving the catheter in place. A 0.052 in diameter J-shaped guidewire was advanced through the catheter into the lumen of the trachea, under direct bronchoscopic visualization. Using a modified Seldinger technique , a 14 Fr, 4.5 cm introducer dilator was used, followed by a Blue Rhino Percutaneous Tracheostomy Dilator, and finally a 28 Fr tracheostomy loading catheter with 8.0 Cuffed Shiley tracheostomy tube. The loading catheter and guidewire were removed and the tracheostomy tube was confirmed in the lumen of the trachea with bronchoscopy, end-tidal CO2, and returning volumes on the ventilator. The tracheostomy was sewn to the skin with interrupted 2.0 Prolene sutures, and a tracheostomy tie was applied to the skin. There were no immediate complications. There was minimal EBL. A chest x-ray has been ordered. Dev Technical Mgr: Dr. Romeo Syed I personally performed the procedure. Lizandro Barry MD Sep 17, 2016 21:58
[2016-09-18] VITALS (18 sets, daily range): BP systolic 105–144; BP diastolic 53–85; PULSE 92–138; RESP 18–25; TEMP 98–102.3; O2SAT 94–100
[2016-09-18] MEDS: LORazepam 2 MG/ML VIAL IV PRN ×8 (01:59→23:04)
[2016-09-18] MEDS: clonazePAM 1 MG TAB PO SCH ×3 (01:59→17:34)
[2016-09-18] MEDS ORDERED: LORazepam 2 MG/ML VIAL IV SCH ×2 (04:00→05:30)
[2016-09-18] MEDS: CHLORHEXIDINE GLUCONATE 2 % 1 PACK (2 CLOTHS) TOP SCH (04:00)
[2016-09-18] MEDS ORDERED: ACETAMINOPHEN 1000 MG/100 ML VIAL IV SCH (04:00)
[2016-09-18] MEDS: IBUPROFEN SUSP 100 MG/5 ML 120 ML BOTTLE PO PRN ×3 (04:25→20:48)
[2016-09-18] MEDS ORDERED: VANCOMYCIN INJ 1,000 MG in SODIUM CHLOR 0.9% 250 ML INJ 250 ML IV ONE (05:00)
[2016-09-18] MEDS ORDERED: CEFEPIME INJ 2,000 MG in SODIUM CHLORIDE 0.9% INJ 100 ML IV SCH (05:00)
--- NOTE | 2016-09-18 05:02 | HHI.CCPN ---
Subjective Remarks/Hospital Course 19 years old was brought in as a trauma alert. He has had to hanged herself and was found by her roommate. Unknown time of hanging. When fire department arrived patient was in asystole. CPR was started and one round of meds were given as per ACLS protocol. There was return of spontaneous circulation soon after that. Patient was brought in getting breaths by BV. She had a blood pressure and half way to arriving to the ER she started having some spontaneous respirations. She continued to be a GCS 3 when she arrived. She is admitted to critical care unit and therapeutic hypothermia protocol is initiated. SUBJ 09/08/16: Patient achieving target temperature but developing severe shock. Levothroid had been increased to 30 mcg/m Mehdi-Synephrine added. Additional fluid boluses ordered currently on bicarbonate infusion additional one amp of bicarbonate given. Chest x-ray shows severe aspiration pneumonitis predominantly right lower lobe infiltrates. Zosyn 4.5 GM IV q8 started, give single dose of vanc 09/09/16: Patient is in the rewarming phase of hypothermia protocol. Once sedation was lightened and taken off the Nimbex, patient started developing tonic-clonic generalized seizure like activity. Bolused with a total of 6 mg Ativan in divided doses and restarted on Versed and propofol infusions. Loaded with Cerebyx 1 g and scheduled at 100 mg every 8 hours. Stat EEG pending. Neurology following 09/10/16: Remains on high dose of vasopressors, MRI brain shows evidence of anoxic brain injury. MRA neck bilateral common carotid narrowing. Start on aspirin get vascular surgery consult. No further seizure-like episodes noted. Pupils are equal bilaterally with slight withdrawal of right lower extremity to central pain. 09/11/16: Currently remains off all sedation in process. No noticeable improvement in neuro status, slight withdrawal x4. Aspirin started for bilateral common carotid narrowing-vascular surgery consult appreciated. Continue Cerebyx EEG sharp activity on eeg. MRI indicates diffuse anoxic brain injury with poor prognosis. EEG bihemispheric slowing and intermittent right central posterior sharp discharges which appear to be epileptiform. Dilantin level is therapeutic 09/12/16: Overnight had episodes myoclonus versus seizures. Neuro exam remains poor. No significant improvement. Low grade fever. Remains tachypneic on the ventilator. Restart propofol for vent synchrony 09/13/16: Neuro exam remains unchanged overnight. ICP monitor placed 09/12 for cerebral edema- ICP controlled with hyperosmolar therapy. 2 episodes of seizures vs myoclonus reported. Repeat EEG today. IVC filter placed 09/12/16 evening for large IVC thrombus. Unable to anticoagulate due to thrombocytopenia , cerebral edema-high risk of bleeding 09/14 EEG yesterday showed severe encephalopathy. ICP mainly 10-13 but intermittently spiked up to max of 22, improved with propofol bolus. Myoclonus noted with any tactile stimulation. 09/15 Comatose with myoclonus. ICP intermittently increased to 20, sometimes drifts down without intervention, sometimes improves with sedation. Extensor posturing. 09/16 Off continuous sedation. Comatose with myoclonus. Corneal reflex present on left, absent on right. ICP monitor removed today per NSG. Subjective: 09/17: no significant neurologic improvement. off sedation. only intermittent ativan for myoclonus which improves symptoms. family meeting today, and family requests aggressive care, including trach/peg. 09/18: No change in neuro exam. Continued to spike high temperatures up to 102.5. CBC pending. I will discontinue Cerebyx start Keppra, check gallbladder ultrasound again and placed on empiric cefepime and single dose of vancomycin. Sputum culture Gram stain shows few GPC. On cooling blanket, and Tylenol. Motrin added. s/p Trach yesterday Objective Vital Signs Date Time Temp Pulse Resp B/P Pulse Ox O2 Delivery O2 Flow Rate FiO2 09/18/16 02:00 138 09/18/16 01:50 100 40 09/18/16 00:00 102.0 25 107/53 Intake and Output 09/17/16 09/17/16 09/18/16 08:00 16:00 00:00 Intake Total 359 ml 574 ml 396 ml Output Total 1625 ml 1500 ml Balance -1266 ml -926 ml 396 ml Result Diagram: 09/17/1661409/17/16614 Imaging Last [address] 09/07/16 1800 Signed Impressions: Service Date/Time: Wednesday, September 07, 2016 18:06 - CONCLUSION: Normal examination. Artem Madera MD Chest X-Ray 09/07/16 1800 Signed Impressions: Service Date/Time: Wednesday, September 07, 2016 17:49 - CONCLUSION: Subtle densities in the upper lobes. Otherwise unremarkable chest. Artem Madera MD ADDENDUM: See above. Artem Madera MD Cervical Spine CT 09/07/16 1800 Signed Impressions: Service Date/Time: Wednesday, September 07, 2016 18:06 - CONCLUSION: 1. No fracture or subluxation. 2. Scattered groundglass nodules throughout the upper lobes, nonspecific but can be seen with hypersensitivity pneumonitis. Artem Madera MD Objective Remarks GENERAL: young female, lying in bed. Intubated. Comatose SKIN: Warm and dry. HEAD: Normocephalic. Pupils are 4 mm reactive to 3 mm bilaterally. EYES: No scleral icterus. No injection or drainage. NECK: trachea midline. No JVD. carotids palpable CARDIOVASCULAR: Tachycardic rhythm. No murmurs. RESPIRATORY: Breath sounds equal bilaterally, intermittently tachypneic on the ventilator. Clear to auscultation anteriorly GASTROINTESTINAL: Abdomen soft, non-tender, distended. MUSCULOSKELETAL: No cyanosis, 1+ edema. NEURO: Intubated, off all sedation except intermittent Ativan. Pupils are 4 mm reactive to 3 mm bilaterally. Slight corneal reflex present on the left, absent on the right. No cough or gag. Disconjugate gaze. No spontaneous eye opening. General myoclonic movements on stimulation. To deep central and peripheral noxious stimuli patient showing extensor posturing on 09/18/16 A/P Assessment and Plan Assessment: 20yF s/p hanging event and s/p cardiac arrest with severe anoxic injury. family continues to want aggressive care. Status post tracheostomy A/P NEURO: Severe anoxic brain injury Bilateral common carotid narrowing Attempted suicide by hanging Seizure Depression - MRI shows evidence of diffuse anoxic brain injury. - MRA neck bilateral common carotid narrowing-vascular surgery consulted, no intervention. started aspirin 09/10 - CT 09/12-loss salguero/white matter differentiation c/w cerebral edema. ICP monitor placed 09/12 , removed 09/16. - EEG 09/10 bilateral sharp activity, on Dilantin. Level therapeutic 09/12. DC Dilantin 09/18/16 due high fever, started Keppra - EEG 09/11 Encephalopathy, no sz. - EEG 09/13severe encephalopathy. (delta waves) - s/p induced hypothermia. - Neurology Dr. Wong following. He states prognosis is poor and recommended comfort measures. - NSG Dr. José states poor prognosis, recommends comfort care. - Toxicology negative - Ativan for symptomatic control for severe myoclonus. - Oxycodone for pain. Fentanyl prn CV: Shock resolved Status postcardiac arrest - Off Levophed which was used to maintain CPP Resp: Acute hypoxemic respiratory failure Pre-hospital Aspiration pneumonitis Acute lung injury - Intubated for hypoxemic respiratory failure from pre hospital aspiration - PRVC, ventilator bundle. DuoNeb every 6 hours and when necessary - Daily SBTs - Patient has evidence of aspiration on admission as indicated by right lower lobe infiltrate - s/p trach 09/17/16. Vijay Jackson and [facility] GI: Transaminitis most likely from shock, resolved. Probable acalculous cholecystitis - Tube feedings Jevity 1.5 at 50 L per hour per nutrition recommendations. PEG on Tuesday - Hold tube feeds for repeat GB ultrasound. Patient is not a surgical candidate but may need cholecystostomy tube - Had bowel and after mag citrate was given. - Liver ultrasound 09/12large nonocclusive thrombus and IVC. Small Pericholecystic fluid and gallbladder wall thickening raising possibility of cholecystitis. -Followup CMP stable. Renal: Acute kidney injury- resolved. Fluid overload- persistent. - Benjamin catheter, monitor BUN/creatinine ID: Septic, neurogenic shock-resolved Aspiration pneumonia, prehospital High fever Sputum with MSSA 09/08. - Zosyn 4.5 g IV every 6 hours 09/08-09/15 #8 . Temp max 100.1, may be secondary to DVT. Off vancomycin. - Fever up to 102.5 GPC on sputum gram stain. Vancomycin 1 g IV 1. Start cefepime 2 g IV every 8 hours - If cultures are negative discontinue antibiotics. Differential includes infectious versus drug-induced (?Dilantin) vs DVT Vs central Endo: - Electrolyte replacement per protocol - Sliding-scale insulin if needed HEME: Leukopenia, resolved Thrombocytopenia consumptive-resovled Large IVC thrombus - Monitor CBC CMP coags. - IVC filter placed 09/12 due to inability to anticoagulate (thrombocytopenia) and cerebral edema - This was discussed with hematology Dr. Kwok and neurologist surgeon Dr. Davenport - Now platelets improved, start Arixtra 7.5 mg daily from 09/18/16. 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 Send KP DVT GI prophylaxis - IVC filter in place. Continue po ppi.Arixtra started 09/18/16 Lines: - Right femoral cooling catheter and right brachial arterial line placed by Dr. England-DC both. L subclavian central line 09/10/16 #7. L radial art line 09/12/16 # 4 - d/cd both 09/17/16 Findings of status myoclonus, persistent coma with extensor posturing vs absent motor response are consistent with poor prognosis for functional neurologic recovery. MRI demonstrates evidence of anoxic injury. Discussed with family poor prognosis and would expect her to require trach/PEG and be dependent for ADL in nursing facility. 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 She states that she "already had suffered plenty from her depression and psychological demons". However, after full and detailed conversation with Dr. Bragg and the palliative care team, they now want to pursue tracheostomy/PEG tube placement, and give her at least a few more weeks to attempt to improve. Congruent with her wishes, trach placed on 09/17/16. PEG planned for Tuesday Level 3 Followup. Lyndon Bhatt MD Sep 18, 2016 05:02
--- NOTE | 2016-09-18 05:54 | RADRPT ---
EXAM DATE/TIME: 09/18/2016 05:01 [facility] COMPARISON: CHEST SINGLE AP, September 17, 2016, 15:35. INDICATIONS : Respiratory failure, fever MEDICAL HISTORY : None. SURGICAL HISTORY : None. ENCOUNTER: Subsequent ACUITY: 1 week PAIN SCORE: Non-responsive. LOCATION: Bilateral chest FINDINGS: The cardiac silhouette is normal in transverse diameter. Support lines and tubes are in satisfactory position. There is continued right perihilar pneumonia. No pleural effusions are identified. The left lung is free of acute parenchymal opacity. CONCLUSION: 1. Right perihilar edema versus pneumonia. There has been no significant change when compared to the prior exam. Satinder Lira MD on September 18, 2016 at 5:52 Board Certified Radiologist. This report was verified electronically.
[2016-09-18 06:19] LABS: BLOOD GAS BASE EXCESS 0.6 mmol/L (-2-2); BLOOD GAS CARBOXYHEMOGLOBIN 0.9 % (0-4); BLOOD GAS HCO3 24 mmol/L (22-26); BLOOD GAS METHEMOGLOBIN 0.7 % (0-2); BLOOD GAS O2 HGB SATURATION 95 % (90-100); BLOOD GAS OXYGEN CONTENT 14.9 Vol % (12.0-20.0); BLOOD GAS PCO2 33 mmHg (38-42); BLOOD GAS PO2 85 mmHg (61-120); BLOOD GAS TOTAL HGB 11.1 G/DL (12.0-16.0); CRITICAL VALUE NO; DRAW SITE PED; FIO2 40 %; NUMBER OF ARTERIAL PUNCTURES 1; OXYGEN DEVICE VENTILATOR; TEMP CORR TO 98.6; VENT SETTINGS AC/18/600/PEEP5
[2016-09-18 08:16] LABS: AUTOMATED NEUTROPHIL # 4.9 TH/MM3 (1.8-7.7); BASOPHIL % 0.5 % (0.0-2.0); EOSINOPHIL % 0.7 % (0.0-4.0); HEMATOCRIT 33.6 % (35.0-46.0); HEMO FLAGS DIFF FINAL; LYMPH % 10.5 % (9.0-44.0); LYMPHOCYTE # 0.6 TH/MM3 (1.0-4.8); MEAN CORPUSCULAR HEMOGLOBIN 28.3 PG (27.0-34.0); MEAN CORPUSCULAR HGB CONC 34.5 % (32.0-36.0); MONO % 6.7 % (0.0-8.0); NEUT % 81.6 % (16.0-70.0); PLATELET COUNT 263 TH/MM3 (150-450); RED CELL DISTRIBUTION WIDTH 14.8 % (11.6-17.2)
[2016-09-18] MEDS: POTASSIUM CHLORIDE 25 MEQ EFFERVESCENT TAB PO SCH (08:41)
[2016-09-18] MEDS: levETIRAcetam 1000 MG INJ 100 ML IV SCH ×2 (08:41→19:50)
[2016-09-18] MEDS: ARTIFICIAL TEARS OPTH SOLN 15 ML BTL EACH EYE SCH ×2 (08:42→21:26)
[2016-09-18] MEDS: FONDAPARINUX SODIUM 7.5 MG/0.6 ML SYRINGE SQ SCH (08:42)
[2016-09-18] MEDS: LACTULOSE SYRUP 20 GM/30 ML CUP PO SCH ×4 (08:43→21:00)
[2016-09-18] MEDS: PANTOPRAZOLE SOD 40 MG DELAYED RELEASE TAB PO SCH (08:43)
[2016-09-18] MEDS: DOCUSATE SODIUM 100 MG/10 ML UDC PO SCH ×2 (08:43→21:00)
[2016-09-18] MEDS: BISACODYL 10 MG SUPP RECTAL SCH (08:43)
[2016-09-18 08:48] LABS: ALKALINE PHOSPHATASE 76 U/L (45-117); ALT (GPT) 37 U/L (9-42); ANION GAP 7 MEQ/L (5-15); AST (GOT) 75 U/L (16-38); BICARBONATE 28.9 MEQ/L (21.0-32.0); BLOOD UREA NITROGEN 15 MG/DL (7-18); CHLORIDE 98 MEQ/L (98-107); GLOMERULAR FILTRATION RATE 115 ML/MIN (>89); MAGNESIUM 2.2 MG/DL (1.5-2.5); POTASSIUM 4.2 MEQ/L (3.5-5.1); SODIUM (NA) 134 MEQ/L (136-145); TOTAL BILIRUBIN ADULT 0.3 MG/DL (0.2-1.0)
[2016-09-18] MEDS: CEFEPIME INJ 2,000 MG in SODIUM CHLORIDE 0.9% INJ 100 ML IV SCH ×3 (09:22→22:21)
[2016-09-18] MEDS: PROPRANOLOL HCL 20 MG TAB PO SCH ×4 (09:23→23:03)
--- NOTE | 2016-09-18 10:26 | RADRPT ---
EXAM DATE/TIME: 09/18/2016 09:27 [facility] COMPARISON: US ABDOMEN - LIVER, September 12, 2016, 16:15. INDICATIONS : Cholecystitis. MEDICAL HISTORY : Tremors. Depression. Seizure. Suicide attempt. SURGICAL HISTORY : PEG placement. ENCOUNTER: Initial ACUITY: 1 week PAIN SCORE: Nonresponsive. LOCATION: Bilateral upper quadrant MEASUREMENTS: LIVER: 18.9 cm length COMMON DUCT: 2 mm RIGHT KIDNEY: 11.1 x 6.1 x 4.9 cm SPLEEN: 13.2 cm length FINDINGS: LIVER: Normal echotexture without focal lesion or ductal dilatation. COMMON DUCT: No intraluminal mass or stone visualized. GALLBLADDER: Gallbladder is not fully distended but contains sludge. No stones are visualized. Wall thickness may be within normal limits given the degree of distention. Sonographic Breaux sign is negative. PANCREAS: The visualized portions are within normal limits. RIGHT KIDNEY: No hydronephrosis, stone or mass. SPLEEN: No focal lesion. CONCLUSION: 1. There is sludge within the gallbladder. No other findings are present to indicate acute cholecysti tis. 2. Mild splenomegaly. Miller Lee MD on September 18, 2016 at 10:22 Board Certified Radiologist. This report was verified electronically.
[2016-09-18] MEDS: ACETAMINOPHEN 325 MG TAB PO PRN ×2 (13:16→23:00)
--- NOTE | 2016-09-18 13:34 | HHI.NSPN ---
Note Status Status: Progress Note Interval History Diagnosis anoxic encephalopathy Interval History The patient has a 20-year-old female brought in as a Trauma Alert. She was found hanging from a pull-up bar. She was in asystole at the scene, treated with epinephrine and regained a pressure after that. Initially she was unresponsive. GCS was 3. The patient has been unresponsive. There has been no seizure activity at present. 09/13. No clinical improvement. Comatose. Myoclonic jerks 09/14 has not shown any clinical improvement 09/15. Rwemains intubated and comatose without improvement 09/17. no significant neurologic improvement. off sedation. only intermittent ativan for myoclonus 09/18. No change in neuro exam. Continued to spike high temperatures up to 102.5. Will discontinue Cerebyx start Keppra. Obtain gallbladder ultrasound. Start empiric cefepime and vancomycin. S/p Trach yesterday Labs, Micro, & Vital Signs Results Date Time Temp Pulse Resp B/P Pulse Ox O2 Delivery O2 Flow Rate FiO2 09/18/16 12:00 50 09/18/16 12:00 101 09/18/16 12:00 101.8 101 25 136/84 97 09/18/16 10:40 94 T-piece 6.00 50 09/18/16 10:00 104 09/18/16 09:01 98 40 09/18/16 08:49 98 40 09/18/16 08:00 108 09/18/16 08:00 98.0 108 23 114/69 97 09/18/16 08:00 40 09/18/16 06:00 131 09/18/16 04:40 100 40 09/18/16 04:00 131 09/18/16 04:00 102.3 131 18 144/85 97 09/18/16 04:00 40 09/18/16 02:00 138 09/18/16 01:50 100 40 09/18/16 00:00 102.0 138 25 107/53 100 09/18/16 00:00 40 09/18/16 00:00 138 09/17/16 22:00 127 09/17/16 21:00 100 40 09/17/16 20:00 100.3 124 24 119/62 98 Arterial Line 09/17/16 20:00 40 09/17/16 20:00 117 09/17/16 18:45 24 09/17/16 18:45 24 09/17/16 18:00 119 09/17/16 16:00 40 09/17/16 16:00 110 09/17/16 16:00 100.1 110 28 148/82 95 09/17/16 15:35 100 40 09/17/16 15:00 99 100 09/17/16 14:40 24 09/17/16 14:40 24 09/17/16 14:00 116 09/18/16 06:59 Intake Total 1270 ml Output Total 1500 ml Balance -230 ml Constitutional Vital Signs Date Time Temp Pulse Resp B/P Pulse Ox O2 Delivery O2 Flow Rate FiO2 09/18/16 12:00 50 09/18/16 12:00 101 09/18/16 12:00 101.8 101 25 136/84 97 09/18/16 10:40 94 T-piece 6.00 50 09/18/16 10:00 104 09/18/16 09:01 98 40 09/18/16 08:49 98 40 09/18/16 08:00 108 09/18/16 08:00 98.0 108 23 114/69 97 09/18/16 08:00 40 09/18/16 06:00 131 09/18/16 04:40 100 40 09/18/16 04:00 131 09/18/16 04:00 102.3 131 18 144/85 97 09/18/16 04:00 40 09/18/16 02:00 138 09/18/16 01:50 100 40 09/18/16 00:00 102.0 138 25 107/53 100 09/18/16 00:00 40 09/18/16 00:00 138 09/17/16 22:00 127 09/17/16 21:00 100 40 09/17/16 20:00 100.3 124 24 119/62 98 Arterial Line 09/17/16 20:00 40 09/17/16 20:00 117 09/17/16 18:45 24 09/17/16 18:45 24 09/17/16 18:00 119 09/17/16 16:00 40 09/17/16 16:00 110 09/17/16 16:00 100.1 110 28 148/82 95 09/17/16 15:35 100 40 09/17/16 15:00 99 100 09/17/16 14:40 24 09/17/16 14:40 24 09/17/16 14:00 116 09/18/16 06:59 Intake Total 1270 ml Output Total 1500 ml Balance -230 ml Review of Systems/Exam Exam She is intubated and sedated. No response to pain. Spontaneous Myoclonic jerks Cranial Nerves: Pupils 2mm, non-reactive to light. Eyes appear conjugated. no nystagmus, Corneal reflex present on left, absent on right Face musculature appeared symmetrical at rest. Face sensation, olfaction, visual phillips, and hearing cannot be adequately assessed due to his neurological condition. The patient has a corneal reflex. SHe has no gag reflex. The sternocleidomastoid and trapezius are symmetrical. Cervical Spine: Her neck is soft, supple, without nuchal rigidity. Motor: No response to pain Reflexes: Deep tendon reflexes are trace in the biceps, triceps, and brachioradialis, bilaterally, in the upper extremities. In the lower extremities, the patellar and ankles TRACE. There is a bilateral silent response to plantar stim. There is no clonus Sensory: On examination there is no response to painful stimuli Cerebellar: Examination cannot be adequately assessed due to the patient's neurological condition. Medical Decision Making [facility] Remarks Last Impressions Liver Ultrasound 09/12/16 0000 Signed Impressions: Service Date/Time: Monday, September 12, 2016 16:15 - CONCLUSION: 1. 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 2. Pericholecystic fluid and gallbladder wall thickening raising the possibility of cholecystitis. A hepatobiliary scan may be helpful to confirm cystic duct obstruction if clinically indicated. 3. Gallbladder sludge. 4. Ascites. 5. Bilateral pleural effusions. 6. Mild hepatomegaly. 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 This is nonocclusive. A retrievable IVC filter was deployed below the main hepatic veins but it was necessary to cross an accessory right hepatic vein. Jose Armando Jackson Jr., MD Head CT 09/12/16 0000 Signed Impressions: Service Date/Time: Monday, September 12, 2016 09:29 - CONCLUSION: Mild loss of lemos matter definition that can be seen with increasing intracranial pressure. Ricki Cavazos MD FACR Neck Magnetic Resonance Angiography 09/09/16 0000 Signed Impressions: Service Date/Time: August 16:02 - CONCLUSION: 1. Moderate to severe smooth narrowing of the left common carotid artery and also moderate narrowing of the proximal right common carotid artery as well as narrowing of both proximal vertebral arteries likely related to recent hanging. Etiology could be related to vasospasm or recent extrinsic prolonged compression. The distal internal carotid arteries and vertebral artery have more normal calibers. Findings called to Dr. Bhatt at the time of dictation. Gideon Brown MD Cervical Spine MRI 09/09/16 0000 Signed Impressions: Service Date/Time: August 16:02 - CONCLUSION: 1. Very minimal degenerative disc disease at C5-6. 2. No acute fracture or prevertebral soft tissue swelling. 3. No focal cervical cord abnormality. Tray Santiago MD Brain MRI 09/09/16 0000 Signed Impressions: Service Date/Time: August 16:02 - CONCLUSION: 1. Diffuse FLAIR-weighted hyperintensities involving the caudate nuclei bilaterally, bilateral hummel radiata, as well as the bilateral parietal and occipital cortex consistent with the patient's clinical diagnosis of anoxic encephalopathy. 2. No acute hemorrhage, midline shift, extra-axial fluid collection or abnormal enhancement. 3. Small fluid level within the right sphenoid sinus. Tray Santiago MD Cervical Spine CT 09/07/16 1800 Signed Impressions: Service Date/Time: Wednesday, September 07, 2016 18:06 - CONCLUSION: 1. No fracture or subluxation. 2. Scattered groundglass nodules throughout the upper lobes, nonspecific but can be seen with hypersensitivity pneumonitis. Artem Madera MD Last Impressions Chest X-Ray 09/13/16 0600 Signed Impressions: Service Date/Time: Tuesday, September 13, 2016 04:49 - CONCLUSION: 1. Hazy opacity in both lungs without significant change. This may represent pulmonary edema which may be noncardiogenic. 2. Artifact projected over the right suprahilar region limiting visualization. Seth Breen MD Liver Ultrasound 09/12/16 Signed Impressions: Service Date/Time: Monday, September 12, 2016 16:15 - CONCLUSION: 1. 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 2. Pericholecystic fluid and gallbladder wall thickening raising the possibility of cholecystitis. A hepatobiliary scan may be helpful to confirm cystic duct obstruction if clinically indicated. 3. Gallbladder sludge. 4. Ascites. 5. Bilateral pleural effusions. 6. Mild hepatomegaly. 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 This is nonocclusive. A retrievable IVC filter was deployed below the main hepatic veins but it was necessary to cross an accessory right hepatic vein. Jose Armando Jackson Jr., MD Head CT 09/12/16 Signed Impressions: Service Date/Time: Monday, September 12, 2016 09:29 - CONCLUSION: Mild loss of lemos matter definition that can be seen with increasing intracranial pressure. Ricki Cavazos MD FACR Neck Magnetic Resonance Angiography 09/09/16 Signed Impressions: Service Date/Time: August 16:02 - CONCLUSION: 1. Moderate to severe smooth narrowing of the left common carotid artery and also moderate narrowing of the proximal right common carotid artery as well as narrowing of both proximal vertebral arteries likely related to recent hanging. Etiology could be related to vasospasm or recent extrinsic prolonged compression. The distal internal carotid arteries and vertebral artery have more normal calibers. Findings called to Dr. Bhatt at the time of dictation. Gideon Brown MD Cervical Spine MRI 09/09/16 Signed Impressions: Service Date/Time: August 16:02 - CONCLUSION: 1. Very minimal degenerative disc disease at C5-6. 2. No acute fracture or prevertebral soft tissue swelling. 3. No focal cervical cord abnormality. Tray Santiago MD Brain MRI 09/09/16 Signed Impressions: Service Date/Time: August 16:02 - CONCLUSION: 1. Diffuse FLAIR-weighted hyperintensities involving the caudate nuclei bilaterally, bilateral hummel radiata, as well as the bilateral parietal and occipital cortex consistent with the patient's clinical diagnosis of anoxic encephalopathy. 2. No acute hemorrhage, midline shift, extra-axial fluid collection or abnormal enhancement. 3. Small fluid level within the right sphenoid sinus. Tray Santiago MD Cervical Spine CT 09/07/16 1800 Signed Impressions: Service Date/Time: Wednesday, September 07, 2016 18:06 - CONCLUSION: 1. No fracture or subluxation. 2. Scattered groundglass nodules throughout the upper lobes, nonspecific but can be seen with hypersensitivity pneumonitis. Artem Madera MD Last Impressions Chest X-Ray 09/13/16 0600 Signed Impressions: Service Date/Time: Tuesday, September 13, 2016 04:49 - CONCLUSION: 1. Hazy opacity in both lungs without significant change. This may represent pulmonary edema which may be noncardiogenic. 2. Artifact projected over the right suprahilar region limiting visualization. Seth Breen MD Liver Ultrasound 09/12/16 0000 Signed Impressions: Service Date/Time: Monday, September 12, 2016 16:15 - CONCLUSION: 1. 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 2. Pericholecystic fluid and gallbladder wall thickening raising the possibility of cholecystitis. A hepatobiliary scan may be helpful to confirm cystic duct obstruction if clinically indicated. 3. Gallbladder sludge. 4. Ascites. 5. Bilateral pleural effusions. 6. Mild hepatomegaly. 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 This is nonocclusive. A retrievable IVC filter was deployed below the main hepatic veins but it was necessary to cross an accessory right hepatic vein. Jose Armando Jackson Jr., MD Head CT 09/12/16 0000 Signed Impressions: Service Date/Time: Monday, September 12, 2016 09:29 - CONCLUSION: Mild loss of lemos matter definition that can be seen with increasing intracranial pressure. Ricki Cavazos MD FACR Neck Magnetic Resonance Angiography 09/09/16 0000 Signed Impressions: Service Date/Time: August 16:02 - CONCLUSION: 1. Moderate to severe smooth narrowing of the left common carotid artery and also moderate narrowing of the proximal right common carotid artery as well as narrowing of both proximal vertebral arteries likely related to recent hanging. Etiology could be related to vasospasm or recent extrinsic prolonged compression. The distal internal carotid arteries and vertebral artery have more normal calibers. Findings called to Dr. Bhatt at the time of dictation. Gideon Brown MD Cervical Spine MRI 09/09/16 0000 Signed Impressions: Service Date/Time: August 16:02 - CONCLUSION: 1. Very minimal degenerative disc disease at C5-6. 2. No acute fracture or prevertebral soft tissue swelling. 3. No focal cervical cord abnormality. Tray Santiago MD Brain MRI 09/09/16 0000 Signed Impressions: Service Date/Time: August 16:02 - CONCLUSION: 1. Diffuse FLAIR-weighted hyperintensities involving the caudate nuclei bilaterally, bilateral hummel radiata, as well as the bilateral parietal and occipital cortex consistent with the patient's clinical diagnosis of anoxic encephalopathy. 2. No acute hemorrhage, midline shift, extra-axial fluid collection or abnormal enhancement. 3. Small fluid level within the right sphenoid sinus. Tray Santiago MD Cervical Spine CT 09/07/16 1800 Signed Impressions: Service Date/Time: Wednesday, September 07, 2016 18:06 - CONCLUSION: 1. No fracture or subluxation. 2. Scattered groundglass nodules throughout the upper lobes, nonspecific but can be seen with hypersensitivity pneumonitis. Artem Madera MD Plan Plan Remarks Current Medications Etomidate 40 mg 40 mg STK-MED ONCE .ROUTE ; Start 09/07/16 at 17:53; Stop at 17:54; Status DC Propofol (Diprivan 1000 Mg/100ml Inj) 100 ml @ As Directed STK-MED ONCE .ROUTE ; Start 09/07/16 at 18:14; Stop 09/07/16 at 18:15; Status DC Succinylcholine Chloride 200 mg 200 mg STK-MED ONCE .ROUTE ; Start 09/07/16 at 18:38; Stop 09/07/16 at 18:39; Status DC Sodium Chloride (NS 1000 ml Inj) 1,000 ml @ 100 mls/hr Q10H IV Last administered on 09/07/16 19:30; Start 09/07/16 at 19:30; Stop 09/08/16 at 03:31 ; Status DC Sodium Chloride (NS Flush) 2 ml UNSCH PRN IV FLUSH FLUSH AFTER USING IV ACCESS ; Start 09/07/16 at 18:45; Stop 09/12/16 at 17:55; Status DC Enalaprilat (Vasotec Inj) 1.25 mg Q8H PRN IV SBP>180, DBP>95; Start 09/07/16 at 18:45 Ondansetron HCl (Zofran Inj) 4 mg Q6H PRN IV NAUSEA OR VOMITING; Start at 18:45 Pantoprazole Sodium (Protonix Inj) 40 mg Q24H IVP Last administered on 20:13; Start 09/07/16 at 20:00 Docusate Sodium (Colace) 100 mg BID PO Last administered on 09/09/16 21:33; Start 09/07/16 at 21:00; Stop 09/10/16 at 09:20; Status DC Magnesium Hydroxide (Milk Of Magnesia Liq) 30 ml Q6H PRN PO CONSTIPATION; Start 09/07/16 at 18:45 Miscellaneous Information 1 [id number] Last administered on 09/07/16 18:45; Start 09/07/16 at 18:45 Chlorhexidine Gluconate (Chlorhexidine 2% Cloth) Taper DAILY@04 TOP Last administered on 09/12/16 01:00; Start 09/08/16 at 04:00; Stop 09/04/17 at 03:59 Chlorhexidine Gluconate 3 pack 3 pack UNSCH PRN TOP HYGIENIC CARE; Start at 18:45 Propofol 100 ml @ As Directed STK-MED ONCE .ROUTE Last administered on 01:42; Start 09/07/16 at 19:20; Stop 09/07/16 at 19:21; Status DC Midazolam HCl (Versed 100 Mg/ ml Inj) 100 ml @ 0 mls/hr TITRATE IV Last administered on 09/07/16 21:33; Start 09/07/16 at 21:30; Stop 09/11/16 at 11:27 ; Status DC Lorazepam 1 mg 1 mg Q1H PRN IV SEIZURES Last administered on 09/14/16 02:45; Start 09/07/16 at 22:00 Midazolam HCl 100 ml @ 0 mls/hr TITRATE IV ; Start 09/07/16 at 22:00; Stop 09/07 at 22:00; Status DC Miscellaneous Information ml @ 0 mls/hr UNSCH IV ; Start 09/07/16 at 22:00 Sodium Chloride (NS Flush) 2 ml UNSCH PRN IV FLUSH FLUSH AFTER USING IV ACCESS ; Start 09/07/16 at 22:00 Sodium Chloride 2 ml 2 ml UNSCH PRN IV FLUSH IV FLUSH; Start 09/07/16 at 22:00 Sodium Chloride (NS 1000 ml Inj) 1,000 ml @ 2,000 mls/hr Q30M IV Last administered on 09/08/16 00:23; Start 09/07/16 at 22:00; Stop 09/07/16 at 22:59 ; Status DC Artificial Tears 1 applic 1 applic Q4H PRN EACH EYE SEE LABEL COMMENTS Last administered on 09/12/16 01:00; Start 09/07/16 at 22:00 Cisatracurium Besylate 100 mg/ Sodium Chloride 250 ml @ 0 mls/hr TITRATE PRN IV ONLY IF SHIVERING Last administered on 09/08/16 08:21; Start 09/07/16 at 21: 30; Stop 09/09/16 at 07:48; Status DC Norepinephrine Bitartrate 4 mg/ Sodium Chloride 250 ml @ 0 mls/hr TITRATE IV ; Start 09/07/16 at 21:30; Stop 09/08/16 at 12:56; Status DC Sodium Chloride 2,000 ml @ 0 mls/hr NOW IV ; Start 09/07/16 at 23:00; Stop at 23:56; Status DC Potassium Chloride 100 ml @ 50 mls/hr Q2H PRN IV For Potassium 2.8 - 3.2 mEq/ L Last administered on 09/13/16 09:02; Start 09/08/16 at 00:30 Potassium Chloride (KCl 20 Meq Premix Inj) 100 ml @ 50 mls/hr Q2H PRN IV For Potassium 2.8 - 3.2 mEq/L Last administered on 09/08/16 18:20; Start 09/08/16 at 00:30 Potassium Bicarb/ Potassium Chloride 50 meq 50 meq UNSCH PRN PO For Potassium 3.3 - 3.5 mEq/L; Start 09/08/16 at 00:30 Potassium Chloride 100 ml @ 25 mls/hr UNSCH PRN IV For Potassium 3.3 - 3.5 mEq /L Last administered on 09/09/16 10:06; Start 09/08/16 at 00:30 Potassium Chloride 100 ml @ 50 mls/hr Q2H PRN IV For Potassium 3.3 - 3.5 mEq/L ; Start 09/08/16 at 00:30 Magnesium Sulfate/ Sodium Chloride (Magnesium Sulfate Inj/NS Inj) 100 ml @ 50 mls/hr UNSCH PRN IV For Magnesium 0.9 - 1.1 mg/dL; Start 09/08/16 at 00:30 Magnesium Oxide 800 mg 800 mg UNSCH PRN PO For Magnesium 1.2 - 1.6 mg/dL; Start 09/08/16 at 00:30 Magnesium Sulfate/ Sodium Chloride (Magnesium Sulfate Inj/NS Inj) 100 ml @ 50 mls/hr UNSCH PRN IV For Magnesium 1.2 - 1.6 mg/dL Last administered on 07:11; Start 09/08/16 at 00:30 Potassium Phosphate 2000 mg 2,000 mg Q4H PRN PO For Phosphorus < 2.5 mg/dL; Start 09/08/16 at 00:30 Sodium Phosphate/ Sodium Chloride (Sodium Phosphate Inj/NS 250 ml Inj) 250 ml @ 42 mls/hr UNSCH PRN IV For Phosphorus < 2.5 mg/dL; Start 09/08/16 at 00:30 Potassium Phosphate 2000 mg 2,000 mg UNSCH PRN PO/TUBE SEE LABEL COMMENTS; Start 09/08/16 at 00:30 Potassium Phosphate 30 mmol/ Sodium Chloride 260 ml @ 42 mls/hr UNSCH PRN IV SEE LABEL COMMENTS; Start 09/08/16 at 00:30 Propofol 100 ml @ As Directed STK-MED ONCE .ROUTE ; Start 09/08/16 at 01:36; Stop 09/08/16 at 01:37; Status DC Propofol (Diprivan 1000 Mg/100ml Inj) 100 ml @ 0 mls/hr TITRATE IV Last administered on 09/14/16 11:13; Start 09/08/16 at 02:00 Vecuronium [place] 10 mg 10 mg STK-MED ONCE .ROUTE ; Start 09/08/16 at 02:33; Stop 09/08/16 at 02:34; Status DC Sodium Chloride (NS 1000 ml Inj) 1,000 ml @ 0 mls/hr NOW IV Last administered on 09/08/16 02:44; Start 09/08/16 at 02:45; Stop 09/08/16 at 03:20; Status DC Vecuronium [place] 10 mg 10 mg NOW IV Last administered on 09/08/16 02:43; Start 09/08/16 at 02:35; Stop 09/08/16 at 02:46; Status DC Sodium Bicarbonate 150 meq/Dextrose 1,150 ml @ 100 mls/hr [id number] IV Last administered on 09/08/16 03:53; Start 09/08/16 at 04:00; Stop 09/08/16 at 12:56 ; Status DC Fentanyl Citrate (fentaNYL DRIP) 250 ml @ 0 mls/hr TITRATE IV Last administered on 09/08/16 05:06; Start 09/08/16 at 05:00; Stop 09/11/16 at 11:27 ; Status DC Phenylephrine HCl (Neosynephrine Inj) 10 mg STK-MED ONCE .ROUTE ; Start at 07:00; Stop 09/08/16 at 07:02; Status DC Phenylephrine HCl 10 mg 10 mg STK-MED ONCE .ROUTE ; Start 09/08/16 at 07:06; Stop 09/08/16 at 07:07; Status DC Piperacillin Sod/ Tazobactam Sod (Zosyn 4.5 Gm Premix) 100 ml @ 200 mls/hr Q6H IV Last administered on 09/14/16 14:00; Start 09/08/16 at 08:00 Terbutaline Sulfate 1 mg 1 mg UNSCH PRN SQ For Extravasation; Start 09/08/16 at 07:30; Stop 09/08/16 at 13:02; Status DC Phenylephrine HCl 160 mg/Dextrose 500 ml @ 0 mls/hr TITRATE IV ; Start 09/08/16 at 07:30; Stop 09/08/16 at 12:57; Status DC Sodium Chloride (NS 1000 ml Inj) 1,000 ml @ 999 mls/hr BOLUS ONCE IV Last administered on 09/08/16 07:30; Start 09/08/16 at 07:30; Stop 09/08/16 at 08:30 ; Status DC Albumin Human 25 gm 25 gm ONCE ONCE IV Last administered on 09/08/16 08:05; Start 09/08/16 at 08:00; Stop 09/08/16 at 08:01; Status DC Vancomycin HCl 1000 mg/Sodium Chloride 250 ml @ 250 mls/hr ONCE ONCE IV Last administered on 09/08/16 09:01; Start 09/08/16 at 08:30; Stop 09/08/16 at 09:29 ; Status DC Sodium Bicarbonate (Sodium Bicarbonate 8.4% Inj) 50 ml @ As Directed STK-MED ONCE .ROUTE ; Start 09/08/16 at 08:49; Stop 09/08/16 at 08:50; Status DC Sodium Bicarbonate 100 meq 100 meq STAT ONCE IV Last administered on 09:00; Start 09/08/16 at 11:00; Stop 09/08/16 at 11:01; Status DC Norepinephrine Bitartrate/Sodium Chloride (Levophed Inj/NS 250 ml Inj) 250 ml @ 0 mls/hr TITRATE IV Last administered on 09/09/16 17:54; Start 09/08/16 at 13: 00; Stop 09/09/16 at 11:11; Status DC Terbutaline Sulfate 1 mg 1 mg UNSCH PRN SQ For Extravasation; Start 09/08/16 at 13:00; Stop 09/09/16 at 17:47; Status DC Sodium Bicarbonate 150 meq/Sterile Water 1,150 ml @ 150 mls/hr Q7H40M IV Last administered on 09/09/16 05:26; Start 09/08/16 at 15:00; Stop 09/09/16 at 07:47 ; Status DC Sodium Chloride 1,000 ml @ 0 mls/hr BOLUS ONCE IV Last administered on 14:00; Start 09/08/16 at 14:15; Stop 09/08/16 at 14:16; Status DC Sodium Chloride 1,000 ml @ 0 mls/hr BOLUS ONCE IV ; Start 09/08/16 at 14:30; Stop 09/08/16 at 14:31; Status Cancel Sodium Chloride (NS 1000 ml Inj) 1,000 ml @ 999 mls/hr BOLUS ONCE IV Last administered on 09/08/16 18:00; Start 09/08/16 at 18:00; Stop 09/08/16 at 19:00 ; Status DC Lorazepam (Ativan Inj) 2 mg STK-MED ONCE .ROUTE ; Start 09/09/16 at 06:53; Stop 09/09/16 at 06:54; Status DC Lorazepam (Ativan Inj) 4 mg STK-MED ONCE .ROUTE ; Start 09/09/16 at 06:57; Stop 09/09/16 at 06:58; Status DC Phenylephrine HCl (Neosynephrine Inj) 40 mg STK-MED ONCE .ROUTE ; Start at 07:33; Stop 09/09/16 at 07:34; Status DC Phenylephrine HCl 40 mg 40 mg STK-MED ONCE .ROUTE ; Start 09/09/16 at 07:34; Stop 09/09/16 at 07:35; Status DC Fosphenytoin Sodium/Sodium Chloride (Cerebyx Inj/NS Inj) 70 ml @ 280 mls/hr ONCE ONCE IV Last administered on 09/09/16 08:15; Start 09/09/16 at 09:00; Stop 09/09/16 at 09:14; Status DC Fosphenytoin Sodium (Cerebyx Inj) 100 mgpe Q8HR IV Last administered on 14:00; Start 09/09/16 at 14:00 Lorazepam 6 mg 6 mg ONCE ONCE IV Last administered on 09/09/16 07:00; Start 09/09/16 at 08:00; Stop 09/09/16 at 08:01; Status DC Phenylephrine HCl/ Dextrose (Neosynephrine Inj/D5W 500 ml Inj) 500 ml @ 0 mls/ hr TITRATE IV ; Start 09/09/16 at 09:45; Stop 09/09/16 at 09:45; Status DC Terbutaline Sulfate 1 mg 1 mg UNSCH PRN SQ FOR EXTRAVASATION PROTOCOL; Start at 09:45; Stop 09/13/16 at 08:38; Status DC Phenylephrine HCl 40 mg/Sodium Chloride 500 ml @ 0 mls/hr TITRATE IV Last administered on 09/09/16 17:55; Start 09/09/16 at 09:45; Stop 09/09/16 at 17:47 ; Status DC Vancomycin HCl 1000 mg/Sodium Chloride 250 ml @ 250 mls/hr ONCE ONCE IV Last administered on 09/09/16 11:23; Start 09/09/16 at 10:45; Stop 09/09/16 at 11:44 ; Status DC Pharmacy Profile Note 0 ml @ 0 mls/hr UNSCH OTHER ; Start 09/09/16 at 10:45; Stop 09/13/16 at 08:39; Status DC Norepinephrine Bitartrate 4 mg/ Sodium Chloride 250 ml @ 0 mls/hr TITRATE IV Last administered on 09/09/16 15:33; Start 09/09/16 at 11:15; Stop 09/09/16 at 17:47; Status DC Vancomycin HCl/ Sodium Chloride (Vancomycin Inj/ NS 250 ml Inj) 250 ml @ 250 mls/hr Q8H IV Last administered on 09/11/16 05:52; Start 09/09/16 at 20:00; Stop 09/11/16 at 12:58; Status DC Miscellaneous Information SPECIFIC LAB TO BE DRAWN:VANCOMYCIN TROUGH DATE TO... ONCE ONCE .XX Last administered on 09/10/16 11:27; Start 09/10/16 at 11:45; Stop 09/10/16 at 11:46; Status DC Sodium Chloride (NS 1000 ml Inj) 1,000 ml @ 999 mls/hr Q1H1M IV Last administered on 09/09/16 11:00; Start 09/09/16 at 11:45; Stop 09/09/16 at 13:45 ; Status DC Gadodiamide 20 ml 20 ml STK-MED ONCE IV Last administered on 09/09/16 16:39; Start 09/09/16 at 16:39; Stop 09/09/16 at 16:40; Status DC Phenylephrine HCl/ Dextrose (Neosynephrine Inj/D5W 500 ml Inj) 500 ml @ 0 mls/ hr TITRATE IV ; Start 09/09/16 at 18:00; Stop 09/09/16 at 18:00; Status DC Terbutaline Sulfate 1 mg 1 mg UNSCH PRN SQ FOR EXTRAVASATION PROTOCOL; Start at 18:00; Stop 09/13/16 at 08:38; Status DC Norepinephrine Bitartrate 16 mg/ Dextrose 250 ml @ 0 mls/hr TITRATE IV ; Start 09/09/16 at 18:00; Stop 09/09/16 at 18:00; Status DC Phenylephrine HCl 160 mg/Sodium Chloride 500 ml @ 0 mls/hr TITRATE IV Last administered on 09/10/16 04:52; Start 09/09/16 at 18:00; Stop 09/11/16 at 11:27 ; Status DC Norepinephrine Bitartrate/Sodium Chloride (Levophed Inj/NS 250 ml Inj) 250 ml @ 0 mls/hr TITRATE IV Last administered on 09/10/16 04:52; Start 09/09/16 at 18: 00; Stop 09/13/16 at 08:39; Status DC Aspirin (Aspirin Chew) 81 mg DAILY CHEW Last administered on 09/13/16 10:09; Start 09/10/16 at 09:00; Status Hold Artificial Tears (Tears Naturale Opth Soln) 1 drop BID EACH EYE Last administered on 09/14/16 09:42; Start 09/10/16 at 21:00 Docusate Sodium (Colace Liq) 100 mg BID PO Last administered on 09/13/16 20:13 ; Start 09/10/16 at 21:00 Midazolam HCl (Versed Inj) 5 mg STK-MED ONCE .ROUTE ; Start 09/10/16 at 09:43; Stop 09/10/16 at 09:44; Status DC Acetaminophen (Tylenol 650 Mg/ 20 ml Liq) 650 mg NOW ONCE PO Last administered on 09/10/16 11:19; Start 09/10/16 at 10:30; Stop 09/10/16 at 10:31 ; Status DC Dextrose (D50w (Syr) Inj) 50 ml STK-MED ONCE .ROUTE ; Start 09/10/16 at 12:49; Stop 09/10/16 at 12:50; Status DC Dextrose (D50w (Syr) Inj) 50 ml NOW ONCE IV PUSH Last administered on 12:45; Start 09/10/16 at 13:30; Stop 09/10/16 at 13:31; Status DC Miscellaneous Information SPECIFIC LAB TO BE DRAWN:VANCOMYCIN TROUGH DATE TO... ONCE ONCE .XX Last administered on 09/11/16 11:45; Start 09/11/16 at 11:45; Stop 09/11/16 at 11:46; Status DC Midazolam HCl (Versed Inj) 3 mg ONCE ONCE IV PUSH Last administered on 09:44; Start 09/10/16 at 14:15; Stop 09/10/16 at 14:16; Status DC Dextrose 50 ml 50 ml NOW ONCE IV PUSH Last administered on 09/10/16 16:09; Start 09/10/16 at 16:00; Stop 09/10/16 at 16:34; Status DC Sodium Chloride (NS 1000 ml Inj) 1,000 ml @ 100 mls/hr Q10H IV Last administered on 09/14/16 11:10; Start 09/11/16 at 12:00 Propranolol HCl (Inderal) 20 mg Q8HR PO Last administered on 09/12/16 04:44; Start 09/11/16 at 14:00; Stop 09/12/16 at 17:13; Status DC Magnesium Citrate (Citroma Liq) 300 ml ONCE ONCE NG ; Start 09/12/16 at 09:00; Stop 09/12/16 at 09:01; Status DC Lactulose 30 ml 30 ml QID PO Last administered on 09/13/16 10:08; Start at 09:00 Vancomycin HCl/ Sodium Chloride (Vancomycin Inj/ NS 250 ml Inj) 250 ml @ 250 mls/hr Q12H IV Last administered on 09/12/16 21:29; Start 09/12/16 at 10:00; Stop 09/13/16 at 08:39; Status DC Miscellaneous Information SPECIFIC LAB TO BE ... ONCE ONCE .XX ; Start at 09:45; Stop 09/14/16 at 09:45; Status DC Furosemide (Lasix Inj) 20 mg ONCE ONCE IV PUSH Last administered on 09/12/16 12:04; Start 09/12/16 at 09:30; Stop 09/12/16 at 09:31; Status DC Mannitol 12.5 gm 12.5 gm Q8H IV Last administered on 09/12/16 15:37; Start at 14:00; Stop 09/12/16 at 21:51; Status DC Sodium Chloride 188 meq/Sodium Chloride 1,047 ml @ 20 mls/hr Q24H IV Last administered on 09/13/16 16:06; Start 09/12/16 at 16:00 Norepinephrine Bitartrate (Levophed-Dextrose Drip) 250 ml @ 0 mls/hr TITRATE IV Last administered on 09/13/16 06:51; Start 09/12/16 at 18:00 Terbutaline Sulfate (Brethine Inj) 1 mg UNSCH PRN SQ For Extravasation; Start 09/12/16 at 18:00 Iohexol (Omnipaque 350 Inj) 30 ml STK-MED ONCE IV Last administered on 21:02; Start 09/12/16 at 21:02; Stop 09/12/16 at 21:03; Status DC Mannitol (Mannitol Inj) 12.5 gm Q8H IV Last administered on 09/13/16 06:23; Start 09/12/16 at 23:00; Stop 09/17/16 at 14:59 Potassium Bicarb/ Potassium Chloride (K-Lyte Cl Eff) 25 meq DAILY PO Last administered on 09/14/16 09:43; Start 09/13/16 at 09:00 Magnesium Citrate (Citroma Liq) 300 ml ONCE ONCE PO ; Start 09/13/16 at 08:30; Stop 09/13/16 at 08:41; Status DC Bisacodyl (Dulcolax Supp) 10 mg DAILY RECTAL Last administered on 09/13/16 10: 09; Start 09/13/16 at 09:00 Attending Statement Continue neuro checks. Anoxic encephalopathy. ICP monitor removed yesterday. Recommend paliative care consultation Pulmonary. Continue mechanical ventilation. Continue aggressive pulmonary toilette, nasotracheal suction, and breathing treatments with nebulizers. Nutrition. NPO Renal. monitor closely urine output, BUN and creatinine Endocrine. Monitor serial Acu checks and SSI as needed in detail ID monitor for signs of infection Protonix for stress ulcer prophylaxis Carlitos tate and SCD's for DVT prophylaxis Jomar José MD Sep 18, 2016 13:34
[2016-09-18] MEDS ORDERED: SODIUM CHLORIDE 23.4% INJ 188 MEQ in SODIUM CHLOR 0.9% 1000 ML INJ 1,000 ML IV SCH (20:00)
[2016-09-18] MEDS: IBUPROFEN SUSP 100 MG/5 ML UDC PO PRN (21:00)
[2016-09-19] VITALS (17 sets, daily range): BP systolic 96–168; BP diastolic 52–81; PULSE 81–130; RESP 14–32; TEMP 98.4–103; O2SAT 93–100
[2016-09-19] MEDS: clonazePAM 1 MG TAB PO SCH ×3 (03:15→18:01)
[2016-09-19] MEDS: LORazepam 2 MG/ML VIAL IV PRN ×8 (03:55→19:58)
[2016-09-19] MEDS: CHLORHEXIDINE GLUCONATE 2 % 1 PACK (2 CLOTHS) TOP SCH (04:00)
[2016-09-19] MEDS: IBUPROFEN SUSP 100 MG/5 ML UDC PO PRN ×2 (04:26→14:20)
[2016-09-19] MEDS: FONDAPARINUX SODIUM 7.5 MG/0.6 ML SYRINGE SQ SCH (05:48)
[2016-09-19] MEDS: PROPRANOLOL HCL 20 MG TAB PO SCH ×4 (05:48→23:57)
[2016-09-19] MEDS: CEFEPIME INJ 2,000 MG in SODIUM CHLORIDE 0.9% INJ 100 ML IV SCH ×3 (05:48→22:53)
[2016-09-19 06:04] LABS: HEMATOCRIT 28.8 % (35.0-46.0); MEAN CELL VOLUME 81.4 FL (80.0-100.0); MEAN CORPUSCULAR HEMOGLOBIN 28.2 PG (27.0-34.0); MEAN CORPUSCULAR HGB CONC 34.7 % (32.0-36.0); PLATELET COUNT 278 TH/MM3 (150-450); RED BLOOD COUNT 3.54 MIL/MM3 (4.00-5.30); RED CELL DISTRIBUTION WIDTH 15.1 % (11.6-17.2); REVIEW FLAG FINAL; WHITE BLOOD COUNT 10.2 TH/MM3 (4.0-11.0)
[2016-09-19 06:26] LABS: BICARBONATE 27.2 MEQ/L (21.0-32.0); POTASSIUM 3.7 MEQ/L (3.5-5.1)
--- NOTE | 2016-09-19 07:56 | HHI.CCPN ---
Subjective Remarks/Hospital Course 19 years old was brought in as a trauma alert. He has had to hanged herself and was found by her roommate. Unknown time of hanging. When fire department arrived patient was in asystole. CPR was started and one round of meds were given as per ACLS protocol. There was return of spontaneous circulation soon after that. Patient was brought in getting breaths by BV. She had a blood pressure and half way to arriving to the ER she started having some spontaneous respirations. She continued to be a GCS 3 when she arrived. She is admitted to critical care unit and therapeutic hypothermia protocol is initiated. SUBJ 09/08/16: Patient achieving target temperature but developing severe shock. Levothroid had been increased to 30 mcg/m Mehdi-Synephrine added. Additional fluid boluses ordered currently on bicarbonate infusion additional one amp of bicarbonate given. Chest x-ray shows severe aspiration pneumonitis predominantly right lower lobe infiltrates. Zosyn 4.5 GM IV q8 started, give single dose of vanc 09/09/16: Patient is in the rewarming phase of hypothermia protocol. Once sedation was lightened and taken off the Nimbex, patient started developing tonic-clonic generalized seizure like activity. Bolused with a total of 6 mg Ativan in divided doses and restarted on Versed and propofol infusions. Loaded with Cerebyx 1 g and scheduled at 100 mg every 8 hours. Stat EEG pending. Neurology following 09/10/16: Remains on high dose of vasopressors, MRI brain shows evidence of anoxic brain injury. MRA neck bilateral common carotid narrowing. Start on aspirin get vascular surgery consult. No further seizure-like episodes noted. Pupils are equal bilaterally with slight withdrawal of right lower extremity to central pain. 09/11/16: Currently remains off all sedation in process. No noticeable improvement in neuro status, slight withdrawal x4. Aspirin started for bilateral common carotid narrowing-vascular surgery consult appreciated. Continue Cerebyx EEG sharp activity on eeg. MRI indicates diffuse anoxic brain injury with poor prognosis. EEG bihemispheric slowing and intermittent right central posterior sharp discharges which appear to be epileptiform. Dilantin level is therapeutic 09/12/16: Overnight had episodes myoclonus versus seizures. Neuro exam remains poor. No significant improvement. Low grade fever. Remains tachypneic on the ventilator. Restart propofol for vent synchrony 09/13/16: Neuro exam remains unchanged overnight. ICP monitor placed 09/12 for cerebral edema- ICP controlled with hyperosmolar therapy. 2 episodes of seizures vs myoclonus reported. Repeat EEG today. IVC filter placed 09/12/16 evening for large IVC thrombus. Unable to anticoagulate due to thrombocytopenia , cerebral edema-high risk of bleeding 09/14 EEG yesterday showed severe encephalopathy. ICP mainly 10-13 but intermittently spiked up to max of 22, improved with propofol bolus. Myoclonus noted with any tactile stimulation. 09/15 Comatose with myoclonus. ICP intermittently increased to 20, sometimes drifts down without intervention, sometimes improves with sedation. Extensor posturing. 09/16 Off continuous sedation. Comatose with myoclonus. Corneal reflex present on left, absent on right. ICP monitor removed today per NSG. 09/17: no significant neurologic improvement. off sedation. only intermittent ativan for myoclonus which improves symptoms. family meeting today, and family requests aggressive care, including trach/peg. 09/18: No change in neuro exam. Continued to spike high temperatures up to 102.5. CBC pending. I will discontinue Cerebyx start Keppra, check gallbladder ultrasound again and placed on empiric cefepime and single dose of vancomycin. Sputum culture Gram stain shows few GPC. On cooling blanket, and Tylenol. Motrin added. s/p Trach yesterday Subjective: 09/19: no improvements or changes. sodium trending down. repeat sputum culture 09/17 growing staph aureus. KP pending. Objective Vital Signs Date Time Temp Pulse Resp B/P Pulse Ox O2 Delivery O2 Flow Rate FiO2 09/19/16 07:21 97 40 09/19/16 06:00 101 09/19/16 04:00 102.2 24 121/61 09/18/16 10:40 T-piece 6.00 Intake and Output 09/18/16 09/18/16 09/19/16 08:00 16:00 00:00 Intake Total 300 ml 261 ml 295 ml Balance 300 ml 261 ml 295 ml Result Diagram: 09/19/16 0545 09/19/16 0545 Imaging Last [address] 09/07/16 1800 Signed Impressions: Service Date/Time: Wednesday, September 07, 2016 18:06 - CONCLUSION: Normal examination. Artem Madera MD Chest X-Ray 09/07/16 1800 Signed Impressions: Service Date/Time: Wednesday, September 07, 2016 17:49 - CONCLUSION: Subtle densities in the upper lobes. Otherwise unremarkable chest. Artem Madera MD ADDENDUM: See above. Artem Madera MD Cervical Spine CT 09/07/16 1800 Signed Impressions: Service Date/Time: Wednesday, September 07, 2016 18:06 - CONCLUSION: 1. No fracture or subluxation. 2. Scattered groundglass nodules throughout the upper lobes, nonspecific but can be seen with hypersensitivity pneumonitis. Artem Madera MD Objective Remarks GENERAL: young female, lying in bed. Intubated. Comatose SKIN: Warm and dry. HEAD: Normocephalic. Pupils are 4 mm reactive to 3 mm bilaterally. EYES: No scleral icterus. No injection or drainage. NECK: trachea midline. No JVD. carotids palpable CARDIOVASCULAR: Tachycardic rhythm. No murmurs. RESPIRATORY: Breath sounds equal bilaterally, intermittently tachypneic on the ventilator. Clear to auscultation anteriorly GASTROINTESTINAL: Abdomen soft, non-tender, distended. MUSCULOSKELETAL: No cyanosis, 1+ edema. NEURO: Intubated, off all sedation except intermittent Ativan. Pupils are 4 mm reactive to 3 mm bilaterally. Slight corneal reflex present on the left, absent on the right. No cough or gag. Disconjugate gaze. No spontaneous eye opening. General myoclonic movements on stimulation. To deep central and peripheral noxious stimuli patient showing extensor posturing A/P Assessment and Plan Assessment: 20yF s/p hanging event and s/p cardiac arrest with severe anoxic injury. family continues to want aggressive care. Status post tracheostomy A/P NEURO: Severe anoxic brain injury Bilateral common carotid narrowing Attempted suicide by hanging Seizure Depression - MRI shows evidence of diffuse anoxic brain injury. - MRA neck bilateral common carotid narrowing-vascular surgery consulted, no intervention. started aspirin 09/10 - CT 09/12-loss salguero/white matter differentiation c/w cerebral edema. ICP monitor placed 09/12 , removed 09/16. - EEG 09/10 bilateral sharp activity, on Dilantin. Level therapeutic 09/12. DC Dilantin 09/18/16 due high fever, started Keppra - EEG 09/11 Encephalopathy, no sz. - EEG 09/13severe encephalopathy. (delta waves) - s/p induced hypothermia. - Neurology Dr. Wong following. He states prognosis is poor and recommended comfort measures. - NSG Dr. José states poor prognosis, recommends comfort care. - Toxicology negative - Ativan for symptomatic control for severe myoclonus. - Oxycodone for pain. Fentanyl prn CV: Shock resolved Status postcardiac arrest - Off Levophed which was used to maintain CPP Resp: Acute hypoxemic respiratory failure Pre-hospital Aspiration pneumonitis Acute lung injury - Intubated for hypoxemic respiratory failure from pre hospital aspiration - PRVC, ventilator bundle. DuoNeb every 6 hours and when necessary - Daily SBTs - Patient has evidence of aspiration on admission as indicated by right lower lobe infiltrate - s/p trach 09/17/16. Vijay Jackson and Kunal - daily trach collar trials. GI: Transaminitis most likely from shock, resolved. Hyponatremia - Tube feedings Jevity 1.5 at 50 L per hour per nutrition recommendations. PEG on Tuesday - repeat GB u/s without signs of cholecystitis 09/18 - started on 2% nacl overnight for hyponatremia. will transition to salt tabs 3gm po q8hr. - Had bowel and after mag citrate was given. - Liver ultrasound 09/12large nonocclusive thrombus and IVC. Renal: Acute kidney injury- resolved. Fluid overload- persistent. - monitor BUN/creatinine - anotn removed and voiding on own. ID: Septic, neurogenic shock-resolved Aspiration pneumonia, prehospital High fever Sputum with MSSA 09/08. - Zosyn 4.5 g IV every 6 hours 09/08-09/15 .fever may be secondary to DVT. Off vancomycin. - Fever up to 102.5 GPC on sputum gram stain. Vancomycin 1 g IV 1. Cefepime 2 g IV every 8 hours - sputum culture 09/17 staph aureus. once 48h cultures, would de-escalate. Endo: - Electrolyte replacement per protocol - Sliding-scale insulin if needed HEME: Leukopenia, resolved Thrombocytopenia consumptive-resovled Large IVC thrombus - Monitor CBC CMP coags. - IVC filter placed 09/12 due to inability to anticoagulate (thrombocytopenia) and cerebral edema - This was discussed with hematology Dr. Kwok and neurologist surgeon Dr. Davenport - Now platelets improved, Arixtra 7.5 mg daily from 09/18/16. 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 KP pending. DVT GI prophylaxis - IVC filter in place. Continue po ppi.Arixtra started 09/18/16 Lines: - Right femoral cooling catheter and right brachial arterial line placed by Dr. England-DC both. L subclavian central line 09/10/16 -09/17 Findings of status myoclonus, persistent coma with extensor posturing vs absent motor response are consistent with poor prognosis for functional neurologic recovery. MRI demonstrates evidence of anoxic injury. Discussed with family poor prognosis and would expect her to require trach/PEG and be dependent for ADL in nursing facility. 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 She states that she "already had suffered plenty from her depression and psychological demons". However, after full and detailed conversation with Dr. Bragg and the palliative care team, they now want to pursue tracheostomy/PEG tube placement, and give her at least a few more weeks to attempt to improve. Congruent with her wishes, trach placed on 09/17/16. PEG planned for Tuesday Lizandro Barry MD Sep 19, 2016 07:56
[2016-09-19] MEDS: SODIUM CHLORIDE 1 GRAM TAB PO SCH ×3 (08:15→23:57)
[2016-09-19] MEDS: levETIRAcetam 1000 MG INJ 100 ML IV SCH ×2 (08:15→19:58)
[2016-09-19] MEDS: DOCUSATE SODIUM 100 MG/10 ML UDC PO SCH ×2 (08:16→19:57)
[2016-09-19] MEDS: BISACODYL 10 MG SUPP RECTAL SCH (08:17)
[2016-09-19] MEDS: ARTIFICIAL TEARS OPTH SOLN 15 ML BTL EACH EYE SCH ×2 (08:17→21:00)
[2016-09-19] MEDS: POTASSIUM CHLORIDE 25 MEQ EFFERVESCENT TAB PO SCH (08:17)
[2016-09-19] MEDS: LACTULOSE SYRUP 20 GM/30 ML CUP PO SCH ×4 (08:17→21:00)
[2016-09-19] MEDS: PANTOPRAZOLE SOD 40 MG DELAYED RELEASE TAB PO SCH (08:17)
[2016-09-19] MEDS: ACETAMINOPHEN 325 MG TAB PO PRN (10:21)
--- NOTE | 2016-09-19 12:03 | HHI.NSPN ---
Note Status Status: Progress Note Interval History Diagnosis anoxic encephalopathy Interval History The patient has a 20-year-old female brought in as a Trauma Alert. She was found hanging from a pull-up bar. She was in asystole at the scene, treated with epinephrine and regained a pressure after that. Initially she was unresponsive. GCS was 3. The patient has been unresponsive. There has been no seizure activity at present. 09/13. No clinical improvement. Comatose. Myoclonic jerks 09/14 has not shown any clinical improvement 09/15. Rwemains intubated and comatose without improvement 09/17. no significant neurologic improvement. off sedation. only intermittent ativan for myoclonus 09/18. No change in neuro exam. Continued to spike high temperatures up to 102.5. Will discontinue Cerebyx start Keppra. Obtain gallbladder ultrasound. Start empiric cefepime and vancomycin. S/p Trach yesterday 09/19. No neuro changes. no improvements or changes. sodium trending down. repeat sputum culture 09/17 growing staph aureus Labs, Micro, & Vital Signs Results Date Time Temp Pulse Resp B/P Pulse Ox O2 Delivery O2 Flow Rate FiO2 09/19/16 10:00 103 09/19/16 08:00 98.5 98 32 168/81 100 09/19/16 08:00 98 09/19/16 08:00 40 09/19/16 08:00 98.5 09/19/16 07:21 97 40 09/19/16 06:00 101 09/19/16 04:00 102.2 121 24 121/61 98 09/19/16 04:00 99 40 09/19/16 04:00 98 09/19/16 04:00 40 09/19/16 02:00 96 40 09/19/16 02:00 114 09/19/16 02:00 101.6 09/19/16 00:00 91 09/19/16 00:00 98.6 09/19/16 00:00 40 09/19/16 00:00 98.6 81 21 96/52 97 09/18/16 22:00 102 09/18/16 20:36 96 40 09/18/16 20:00 40 09/18/16 20:00 101.2 106 23 105/55 96 09/18/16 20:00 109 09/18/16 20:00 101.2 09/18/16 16:00 99.3 105 23 128/77 94 09/18/16 16:00 105 09/18/16 16:00 40 09/18/16 15:19 97 40 09/18/16 14:00 92 09/18/16 12:00 50 09/18/16 12:00 101 09/18/16 12:00 101.8 101 25 136/84 97 09/19/16 07:00 Intake Total 859 ml Balance 859 ml Constitutional Vital Signs Date Time Temp Pulse Resp B/P Pulse Ox O2 Delivery O2 Flow Rate FiO2 09/19/16 10:00 103 09/19/16 08:00 98.5 98 32 168/81 100 09/19/16 08:00 98 09/19/16 08:00 40 09/19/16 08:00 98.5 09/19/16 07:21 97 40 09/19/16 06:00 101 09/19/16 04:00 102.2 121 24 121/61 98 09/19/16 04:00 99 40 09/19/16 04:00 98 09/19/16 04:00 40 09/19/16 02:00 96 40 09/19/16 02:00 114 09/19/16 02:00 101.6 09/19/16 00:00 91 09/19/16 00:00 98.6 09/19/16 00:00 40 09/19/16 00:00 98.6 81 21 96/52 97 09/18/16 22:00 102 09/18/16 20:36 96 40 09/18/16 20:00 40 09/18/16 20:00 101.2 106 23 105/55 96 09/18/16 20:00 109 09/18/16 20:00 101.2 09/18/16 16:00 99.3 105 23 128/77 94 09/18/16 16:00 105 09/18/16 16:00 40 09/18/16 15:19 97 40 09/18/16 14:00 92 09/18/16 12:00 50 09/18/16 12:00 101 09/18/16 12:00 101.8 101 25 136/84 97 09/19/16 07:00 Intake Total 859 ml Balance 859 ml Review of Systems/Exam Exam She is intubated and sedated. No response to pain. Spontaneous Myoclonic jerks Cranial Nerves: Pupils 2mm, non-reactive to light. Eyes appear conjugated. no nystagmus, Corneal reflex present on left, absent on right Face musculature appeared symmetrical at rest. Face sensation, olfaction, visual phillips, and hearing cannot be adequately assessed due to his neurological condition. The patient has a corneal reflex. SHe has no gag reflex. The sternocleidomastoid and trapezius are symmetrical. Cervical Spine: Her neck is soft, supple, without nuchal rigidity. Motor: No response to pain Reflexes: Deep tendon reflexes are trace in the biceps, triceps, and brachioradialis, bilaterally, in the upper extremities. In the lower extremities, the patellar and ankles TRACE. There is a bilateral silent response to plantar stim. There is no clonus Sensory: On examination there is no response to painful stimuli Cerebellar: Examination cannot be adequately assessed due to the patient's neurological condition. Medical Decision Making MDM Remarks Last Impressions Liver Ultrasound 09/12/16 0000 Signed Impressions: Service Date/Time: Monday, September 12, 2016 16:15 - CONCLUSION: 1. 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 2. Pericholecystic fluid and gallbladder wall thickening raising the possibility of cholecystitis. A hepatobiliary scan may be helpful to confirm cystic duct obstruction if clinically indicated. 3. Gallbladder sludge. 4. Ascites. 5. Bilateral pleural effusions. 6. Mild hepatomegaly. 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 This is nonocclusive. A retrievable IVC filter was deployed below the main hepatic veins but it was necessary to cross an accessory right hepatic vein. Jose Armando Jackson Jr., MD Head CT 09/12/16 0000 Signed Impressions: Service Date/Time: Monday, September 12, 2016 09:29 - CONCLUSION: Mild loss of lemos matter definition that can be seen with increasing intracranial pressure. Ricki Cavazos MD FACR Neck Magnetic Resonance Angiography 09/09/16 0000 Signed Impressions: Service Date/Time: August 16:02 - CONCLUSION: 1. Moderate to severe smooth narrowing of the left common carotid artery and also moderate narrowing of the proximal right common carotid artery as well as narrowing of both proximal vertebral arteries likely related to recent hanging. Etiology could be related to vasospasm or recent extrinsic prolonged compression. The distal internal carotid arteries and vertebral artery have more normal calibers. Findings called to Dr. Bhatt at the time of dictation. Gideon Brown MD Cervical Spine MRI 09/09/16 0000 Signed Impressions: Service Date/Time: , September 09, 2016 16:02 - CONCLUSION: 1. Very minimal degenerative disc disease at C5-6. 2. No acute fracture or prevertebral soft tissue swelling. 3. No focal cervical cord abnormality. Tray Santiago MD Brain MRI 09/09/16 0000 Signed Impressions: Service Date/Time: August 16:02 - CONCLUSION: 1. Diffuse FLAIR-weighted hyperintensities involving the caudate nuclei bilaterally, bilateral hummel radiata, as well as the bilateral parietal and occipital cortex consistent with the patient's clinical diagnosis of anoxic encephalopathy. 2. No acute hemorrhage, midline shift, extra-axial fluid collection or abnormal enhancement. 3. Small fluid level within the right sphenoid sinus. Tray Santiago MD Cervical Spine CT 09/07/16 1800 Signed Impressions: Service Date/Time: Wednesday, September 07, 2016 18:06 - CONCLUSION: 1. No fracture or subluxation. 2. Scattered groundglass nodules throughout the upper lobes, nonspecific but can be seen with hypersensitivity pneumonitis. Artem Madera MD Last Impressions Chest X-Ray 09/13/16 0600 Signed Impressions: Service Date/Time: Tuesday, September 13, 2016 04:49 - CONCLUSION: 1. Hazy opacity in both lungs without significant change. This may represent pulmonary edema which may be noncardiogenic. 2. Artifact projected over the right suprahilar region limiting visualization. Seth Breen MD Liver Ultrasound 09/12/16 0000 Signed Impressions: Service Date/Time: Monday, September 12, 2016 16:15 - CONCLUSION: 1. 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 2. Pericholecystic fluid and gallbladder wall thickening raising the possibility of cholecystitis. A hepatobiliary scan may be helpful to confirm cystic duct obstruction if clinically indicated. 3. Gallbladder sludge. 4. Ascites. 5. Bilateral pleural effusions. 6. Mild hepatomegaly. 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 This is nonocclusive. A retrievable IVC filter was deployed below the main hepatic veins but it was necessary to cross an accessory right hepatic vein. Jose Armando Jackson Jr., MD Head CT 09/12/16 Signed Impressions: Service Date/Time: Monday, September 12, 2016 09:29 - CONCLUSION: Mild loss of lemos matter definition that can be seen with increasing intracranial pressure. Ricik Cavazos MD FACR Neck Magnetic Resonance Angiography 09/09/16 Signed Impressions: Service Date/Time: August 16:02 - CONCLUSION: 1. Moderate to severe smooth narrowing of the left common carotid artery and also moderate narrowing of the proximal right common carotid artery as well as narrowing of both proximal vertebral arteries likely related to recent hanging. Etiology could be related to vasospasm or recent extrinsic prolonged compression. The distal internal carotid arteries and vertebral artery have more normal calibers. Findings called to Dr. Bhatt at the time of dictation. Gideon Brown MD Cervical Spine MRI 09/09/16 Signed Impressions: Service Date/Time: August 16:02 - CONCLUSION: 1. Very minimal degenerative disc disease at C5-6. 2. No acute fracture or prevertebral soft tissue swelling. 3. No focal cervical cord abnormality. Tray Santiago MD Brain MRI 09/09/16 Signed Impressions: Service Date/Time: August 16:02 - CONCLUSION: 1. Diffuse FLAIR-weighted hyperintensities involving the caudate nuclei bilaterally, bilateral hummel radiata, as well as the bilateral parietal and occipital cortex consistent with the patient's clinical diagnosis of anoxic encephalopathy. 2. No acute hemorrhage, midline shift, extra-axial fluid collection or abnormal enhancement. 3. Small fluid level within the right sphenoid sinus. Tray Santiago MD Cervical Spine CT 09/07/16 1800 Signed Impressions: Service Date/Time: Wednesday, September 07, 2016 18:06 - CONCLUSION: 1. No fracture or subluxation. 2. Scattered groundglass nodules throughout the upper lobes, nonspecific but can be seen with hypersensitivity pneumonitis. Artem Madera MD Last Impressions Chest X-Ray 09/13/16 0600 Signed Impressions: Service Date/Time: Tuesday, September 13, 2016 04:49 - CONCLUSION: 1. Hazy opacity in both lungs without significant change. This may represent pulmonary edema which may be noncardiogenic. 2. Artifact projected over the right suprahilar region limiting visualization. Seth Breen MD Liver Ultrasound 09/12/16 0000 Signed Impressions: Service Date/Time: Monday, September 12, 2016 16:15 - CONCLUSION: 1. 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 2. Pericholecystic fluid and gallbladder wall thickening raising the possibility of cholecystitis. A hepatobiliary scan may be helpful to confirm cystic duct obstruction if clinically indicated. 3. Gallbladder sludge. 4. Ascites. 5. Bilateral pleural effusions. 6. Mild hepatomegaly. 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 This is nonocclusive. A retrievable IVC filter was deployed below the main hepatic veins but it was necessary to cross an accessory right hepatic vein. Jose Armando Jackson Jr., MD Head CT 09/12/16 0000 Signed Impressions: Service Date/Time: Monday, September 12, 2016 09:29 - CONCLUSION: Mild loss of lemos matter definition that can be seen with increasing intracranial pressure. Ricki Cavazos MD FACR Neck Magnetic Resonance Angiography 09/09/16 0000 Signed Impressions: Service Date/Time: August 16:02 - CONCLUSION: 1. Moderate to severe smooth narrowing of the left common carotid artery and also moderate narrowing of the proximal right common carotid artery as well as narrowing of both proximal vertebral arteries likely related to recent hanging. Etiology could be related to vasospasm or recent extrinsic prolonged compression. The distal internal carotid arteries and vertebral artery have more normal calibers. Findings called to Dr. Bhatt at the time of dictation. Gideon Brown MD Cervical Spine MRI 09/09/16 0000 Signed Impressions: Service Date/Time: August 16:02 - CONCLUSION: 1. Very minimal degenerative disc disease at C5-6. 2. No acute fracture or prevertebral soft tissue swelling. 3. No focal cervical cord abnormality. Tray Santiago MD Brain MRI 09/09/16 0000 Signed Impressions: Service Date/Time: , September 09, 2016 16:02 - CONCLUSION: 1. Diffuse FLAIR-weighted hyperintensities involving the caudate nuclei bilaterally, bilateral hummel radiata, as well as the bilateral parietal and occipital cortex consistent with the patient's clinical diagnosis of anoxic encephalopathy. 2. No acute hemorrhage, midline shift, extra-axial fluid collection or abnormal enhancement. 3. Small fluid level within the right sphenoid sinus. Tray Santiago MD Cervical Spine CT 09/07/16 1800 Signed Impressions: Service Date/Time: Wednesday, September 07, 2016 18:06 - CONCLUSION: 1. No fracture or subluxation. 2. Scattered groundglass nodules throughout the upper lobes, nonspecific but can be seen with hypersensitivity pneumonitis. Artem Madera MD Plan Plan Remarks Current Medications Etomidate 40 mg 40 mg STK-MED ONCE .ROUTE ; Start 09/07/16 at 17:53; Stop at 17:54; Status DC Propofol (Diprivan 1000 Mg/100ml Inj) 100 ml @ As Directed STK-MED ONCE .ROUTE ; Start 09/07/16 at 18:14; Stop 09/07/16 at 18:15; Status DC Succinylcholine Chloride 200 mg 200 mg STK-MED ONCE .ROUTE ; Start 09/07/16 at 18:38; Stop 09/07/16 at 18:39; Status DC Sodium Chloride (NS 1000 ml Inj) 1,000 ml @ 100 mls/hr Q10H IV Last administered on 09/07/16t 19:30; Start 09/07/16 at 19:30; Stop 09/08/16 at 03:31 ; Status DC Sodium Chloride (NS Flush) 2 ml UNSCH PRN IV FLUSH FLUSH AFTER USING IV ACCESS ; Start 09/07/16 at 18:45; Stop 09/12/16 at 17:55; Status DC Enalaprilat (Vasotec Inj) 1.25 mg Q8H PRN IV SBP>180, DBP>95; Start 09/07/16 at 18:45 Ondansetron HCl (Zofran Inj) 4 mg Q6H PRN IV NAUSEA OR VOMITING; Start at 18:45 Pantoprazole Sodium (Protonix Inj) 40 mg Q24H IVP Last administered on 20:13; Start 09/07/16 at 20:00 Docusate Sodium (Colace) 100 mg BID PO Last administered on 09/09/16 21:33; Start 09/07/16 at 21:00; Stop 09/10/16 at 09:20; Status DC Magnesium Hydroxide (Milk Of Magnesia Liq) 30 ml Q6H PRN PO CONSTIPATION; Start 09/07/16 at 18:45 Miscellaneous Information 1 [id number] Last administered on 09/07/16 18:45; Start 09/07/16 at 18:45 Chlorhexidine Gluconate (Chlorhexidine 2% Cloth) Taper DAILY@04 TOP Last administered on 09/12/16 01:00; Start 09/08/16 at 04:00; Stop 09/04/17 at 03:59 Chlorhexidine Gluconate 3 pack 3 pack UNSCH PRN TOP HYGIENIC CARE; Start at 18:45 Propofol 100 ml @ As Directed STK-MED ONCE .ROUTE Last administered on 01:42; Start 09/07/16 at 19:20; Stop 09/07/16 at 19:21; Status DC Midazolam HCl (Versed 100 Mg/ ml Inj) 100 ml @ 0 mls/hr TITRATE IV Last administered on 09/07/16 21:33; Start 09/07/16 at 21:30; Stop 09/11/16 at 11:27 ; Status DC Lorazepam 1 mg 1 mg Q1H PRN IV SEIZURES Last administered on 09/14/16 02:45; Start 09/07/16 at 22:00 Midazolam HCl 100 ml @ 0 mls/hr TITRATE IV ; Start 09/07/16 at 22:00; Stop 09/07 at 22:00; Status DC Miscellaneous Information ml @ 0 mls/hr UNSCH IV ; Start 09/07/16 at 22:00 Sodium Chloride (NS Flush) 2 ml UNSCH PRN IV FLUSH FLUSH AFTER USING IV ACCESS ; Start 09/07/16 at 22:00 Sodium Chloride 2 ml 2 ml UNSCH PRN IV FLUSH IV FLUSH; Start 09/07/16 at 22:00 Sodium Chloride (NS 1000 ml Inj) 1,000 ml @ 2,000 mls/hr Q30M IV Last administered on 09/08/16 00:23; Start 09/07/16 at 22:00; Stop 09/07/16 at 22:59 ; Status DC Artificial Tears 1 applic 1 applic Q4H PRN EACH EYE SEE LABEL COMMENTS Last administered on 09/12/16 01:00; Start 09/07/16 at 22:00 Cisatracurium Besylate 100 mg/ Sodium Chloride 250 ml @ 0 mls/hr TITRATE PRN IV ONLY IF SHIVERING Last administered on 09/08/16 08:21; Start 09/07/16 at 21: 30; Stop 09/09/16 at 07:48; Status DC Norepinephrine Bitartrate 4 mg/ Sodium Chloride 250 ml @ 0 mls/hr TITRATE IV ; Start 09/07/16 at 21:30; Stop 09/08/16 at 12:56; Status DC Sodium Chloride 2,000 ml @ 0 mls/hr NOW IV ; Start 09/07/16 at 23:00; Stop at 23:56; Status DC Potassium Chloride 100 ml @ 50 mls/hr Q2H PRN IV For Potassium 2.8 - 3.2 mEq/ L Last administered on 09/13/16 09:02; Start 09/08/16 at 00:30 Potassium Chloride (KCl 20 Meq Premix Inj) 100 ml @ 50 mls/hr Q2H PRN IV For Potassium 2.8 - 3.2 mEq/L Last administered on 09/08/16 18:20; Start 09/08/16 at 00:30 Potassium Bicarb/ Potassium Chloride 50 meq 50 meq UNSCH PRN PO For Potassium 3.3 - 3.5 mEq/L; Start 09/08/16 at 00:30 Potassium Chloride 100 ml @ 25 mls/hr UNSCH PRN IV For Potassium 3.3 - 3.5 mEq /L Last administered on 09/09/16 10:06; Start 09/08/16 at 00:30 Potassium Chloride 100 ml @ 50 mls/hr Q2H PRN IV For Potassium 3.3 - 3.5 mEq/L ; Start 09/08/16 at 00:30 Magnesium Sulfate/ Sodium Chloride (Magnesium Sulfate Inj/NS Inj) 100 ml @ 50 mls/hr UNSCH PRN IV For Magnesium 0.9 - 1.1 mg/dL; Start 09/08/16 at 00:30 Magnesium Oxide 800 mg 800 mg UNSCH PRN PO For Magnesium 1.2 - 1.6 mg/dL; Start 09/08/16 at 00:30 Magnesium Sulfate/ Sodium Chloride (Magnesium Sulfate Inj/NS Inj) 100 ml @ 50 mls/hr UNSCH PRN IV For Magnesium 1.2 - 1.6 mg/dL Last administered on 07:11; Start 09/08/16 at 00:30 Potassium Phosphate 2000 mg 2,000 mg Q4H PRN PO For Phosphorus < 2.5 mg/dL; Start 09/08/16 at 00:30 Sodium Phosphate/ Sodium Chloride (Sodium Phosphate Inj/NS 250 ml Inj) 250 ml @ 42 mls/hr UNSCH PRN IV For Phosphorus < 2.5 mg/dL; Start 09/08/16 at 00:30 Potassium Phosphate 2000 mg 2,000 mg UNSCH PRN PO/TUBE SEE LABEL COMMENTS; Start 09/08/16 at 00:30 Potassium Phosphate 30 mmol/ Sodium Chloride 260 ml @ 42 mls/hr UNSCH PRN IV SEE LABEL COMMENTS; Start 09/08/16 at 00:30 Propofol 100 ml @ As Directed STK-MED ONCE .ROUTE ; Start 09/08/16 at 01:36; Stop 09/08/16 at 01:37; Status DC Propofol (Diprivan 1000 Mg/100ml Inj) 100 ml @ 0 mls/hr TITRATE IV Last administered on 09/14/16 11:13; Start 09/08/16 at 02:00 Vecuronium Mcdade 10 mg 10 mg STK-MED ONCE .ROUTE ; Start 09/08/16 at 02:33; Stop 09/08/16 at 02:34; Status DC Sodium Chloride (NS 1000 ml Inj) 1,000 ml @ 0 mls/hr NOW IV Last administered on 09/08/16 02:44; Start 09/08/16 at 02:45; Stop 09/08/16 at 03:20; Status DC Vecuronium Mcdade 10 mg 10 mg NOW IV Last administered on 09/08/16 02:43; Start 09/08/16 at 02:35; Stop 09/08/16 at 02:46; Status DC Sodium Bicarbonate 150 meq/Dextrose 1,150 ml @ 100 mls/hr [id number] IV Last administered on 09/08/16 03:53; Start 09/08/16 at 04:00; Stop 09/08/16 at 12:56 ; Status DC Fentanyl Citrate (fentaNYL DRIP) 250 ml @ 0 mls/hr TITRATE IV Last administered on 09/08/16 05:06; Start 09/08/16 at 05:00; Stop 09/11/16 at 11:27 ; Status DC Phenylephrine HCl (Neosynephrine Inj) 10 mg STK-MED ONCE .ROUTE ; Start at 07:00; Stop 09/08/16 at 07:02; Status DC Phenylephrine HCl 10 mg 10 mg STK-MED ONCE .ROUTE ; Start 09/08/16 at 07:06; Stop 09/08/16 at 07:07; Status DC Piperacillin Sod/ Tazobactam Sod (Zosyn 4.5 Gm Premix) 100 ml @ 200 mls/hr Q6H IV Last administered on 09/14/16 14:00; Start 09/08/16 at 08:00 Terbutaline Sulfate 1 mg 1 mg UNSCH PRN SQ For Extravasation; Start 09/08/16 at 07:30; Stop 09/08/16 at 13:02; Status DC Phenylephrine HCl 160 mg/Dextrose 500 ml @ 0 mls/hr TITRATE IV ; Start 09/08/16 at 07:30; Stop 09/08/16 at 12:57; Status DC Sodium Chloride (NS 1000 ml Inj) 1,000 ml @ 999 mls/hr BOLUS ONCE IV Last administered on 09/08/16 07:30; Start 09/08/16 at 07:30; Stop 09/08/16 at 08:30 ; Status DC Albumin Human 25 gm 25 gm ONCE ONCE IV Last administered on 09/08/16 08:05; Start 09/08/16 at 08:00; Stop 09/08/16 at 08:01; Status DC Vancomycin HCl 1000 mg/Sodium Chloride 250 ml @ 250 mls/hr ONCE ONCE IV Last administered on 09/08/16 09:01; Start 09/08/16 at 08:30; Stop 09/08/16 at 09:29 ; Status DC Sodium Bicarbonate (Sodium Bicarbonate 8.4% Inj) 50 ml @ As Directed STK-MED ONCE .ROUTE ; Start 09/08/16 at 08:49; Stop 09/08/16 at 08:50; Status DC Sodium Bicarbonate 100 meq 100 meq STAT ONCE IV Last administered on 09:00; Start 09/08/16 at 11:00; Stop 09/08/16 at 11:01; Status DC Norepinephrine Bitartrate/Sodium Chloride (Levophed Inj/NS 250 ml Inj) 250 ml @ 0 mls/hr TITRATE IV Last administered on 09/09/16 17:54; Start 09/08/16 at 13: 00; Stop 09/09/16 at 11:11; Status DC Terbutaline Sulfate 1 mg 1 mg UNSCH PRN SQ For Extravasation; Start 09/08/16 at 13:00; Stop 09/09/16 at 17:47; Status DC Sodium Bicarbonate 150 meq/Sterile Water 1,150 ml @ 150 mls/hr Q7H40M IV Last administered on 09/09/16 05:26; Start 09/08/16 at 15:00; Stop 09/09/16 at 07:47 ; Status DC Sodium Chloride 1,000 ml @ 0 mls/hr BOLUS ONCE IV Last administered on 14:00; Start 09/08/16 at 14:15; Stop 09/08/16 at 14:16; Status DC Sodium Chloride 1,000 ml @ 0 mls/hr BOLUS ONCE IV ; Start 09/08/16 at 14:30; Stop 09/08/16 at 14:31; Status Cancel Sodium Chloride (NS 1000 ml Inj) 1,000 ml @ 999 mls/hr BOLUS ONCE IV Last administered on 09/08/16 18:00; Start 09/08/16 at 18:00; Stop 09/08/16 at 19:00 ; Status DC Lorazepam (Ativan Inj) 2 mg STK-MED ONCE .ROUTE ; Start 09/09/16 at 06:53; Stop 09/09/16 at 06:54; Status DC Lorazepam (Ativan Inj) 4 mg STK-MED ONCE .ROUTE ; Start 09/09/16 at 06:57; Stop 09/09/16 at 06:58; Status DC Phenylephrine HCl (Neosynephrine Inj) 40 mg STK-MED ONCE .ROUTE ; Start at 07:33; Stop 09/09/16 at 07:34; Status DC Phenylephrine HCl 40 mg 40 mg STK-MED ONCE .ROUTE ; Start 09/09/16 at 07:34; Stop 09/09/16 at 07:35; Status DC Fosphenytoin Sodium/Sodium Chloride (Cerebyx Inj/NS Inj) 70 ml @ 280 mls/hr ONCE ONCE IV Last administered on 09/09/16 08:15; Start 09/09/16 at 09:00; Stop 09/09/16 at 09:14; Status DC Fosphenytoin Sodium (Cerebyx Inj) 100 mgpe Q8HR IV Last administered on 14:00; Start 09/09/16 at 14:00 Lorazepam 6 mg 6 mg ONCE ONCE IV Last administered on 09/09/16 07:00; Start 09/09/16 at 08:00; Stop 09/09/16 at 08:01; Status DC Phenylephrine HCl/ Dextrose (Neosynephrine Inj/D5W 500 ml Inj) 500 ml @ 0 mls/ hr TITRATE IV ; Start 09/09/16 at 09:45; Stop 09/09/16 at 09:45; Status DC Terbutaline Sulfate 1 mg 1 mg UNSCH PRN SQ FOR EXTRAVASATION PROTOCOL; Start at 09:45; Stop 09/13/16 at 08:38; Status DC Phenylephrine HCl 40 mg/Sodium Chloride 500 ml @ 0 mls/hr TITRATE IV Last administered on 09/09/16 17:55; Start 09/09/16 at 09:45; Stop 09/09/16 at 17:47 ; Status DC Vancomycin HCl 1000 mg/Sodium Chloride 250 ml @ 250 mls/hr ONCE ONCE IV Last administered on 09/09/16 11:23; Start 09/09/16 at 10:45; Stop 09/09/16 at 11:44 ; Status DC Pharmacy Profile Note 0 ml @ 0 mls/hr UNSCH OTHER ; Start 09/09/16 at 10:45; Stop 09/13/16 at 08:39; Status DC Norepinephrine Bitartrate 4 mg/ Sodium Chloride 250 ml @ 0 mls/hr TITRATE IV Last administered on 09/09/16 15:33; Start 09/09/16 at 11:15; Stop 09/09/16 at 17:47; Status DC Vancomycin HCl/ Sodium Chloride (Vancomycin Inj/ NS 250 ml Inj) 250 ml @ 250 mls/hr Q8H IV Last administered on 09/11/16 05:52; Start 09/09/16 at 20:00; Stop 09/11/16 at 12:58; Status DC Miscellaneous Information SPECIFIC LAB TO BE DRAWN:VANCOMYCIN TROUGH DATE TO... ONCE ONCE .XX Last administered on 09/10/16 11:27; Start 09/10/16 at 11:45; Stop 09/10/16 at 11:46; Status DC Sodium Chloride (NS 1000 ml Inj) 1,000 ml @ 999 mls/hr Q1H1M IV Last administered on 09/09/16 11:00; Start 09/09/16 at 11:45; Stop 09/09/16 at 13:45 ; Status DC Gadodiamide 20 ml 20 ml STK-MED ONCE IV Last administered on 09/09/16 16:39; Start 09/09/16 at 16:39; Stop 09/09/16 at 16:40; Status DC Phenylephrine HCl/ Dextrose (Neosynephrine Inj/D5W 500 ml Inj) 500 ml @ 0 mls/ hr TITRATE IV ; Start 09/09/16 at 18:00; Stop 09/09/16 at 18:00; Status DC Terbutaline Sulfate 1 mg 1 mg UNSCH PRN SQ FOR EXTRAVASATION PROTOCOL; Start at 18:00; Stop 09/13/16 at 08:38; Status DC Norepinephrine Bitartrate 16 mg/ Dextrose 250 ml @ 0 mls/hr TITRATE IV ; Start 09/09/16 at 18:00; Stop 09/09/16 at 18:00; Status DC Phenylephrine HCl 160 mg/Sodium Chloride 500 ml @ 0 mls/hr TITRATE IV Last administered on 09/10/16 04:52; Start 09/09/16 at 18:00; Stop 09/11/16 at 11:27 ; Status DC Norepinephrine Bitartrate/Sodium Chloride (Levophed Inj/NS 250 ml Inj) 250 ml @ 0 mls/hr TITRATE IV Last administered on 09/10/16 04:52; Start 09/09/16 at 18: 00; Stop 09/13/16 at 08:39; Status DC Aspirin (Aspirin Chew) 81 mg DAILY CHEW Last administered on 09/13/16 10:09; Start 09/10/16 at 09:00; Status Hold Artificial Tears (Tears Naturale Opth Soln) 1 drop BID EACH EYE Last administered on 09/14/16 09:42; Start 09/10/16 at 21:00 Docusate Sodium (Colace Liq) 100 mg BID PO Last administered on 09/13/16 20:13 ; Start 09/10/16 at 21:00 Midazolam HCl (Versed Inj) 5 mg STK-MED ONCE .ROUTE ; Start 09/10/16 at 09:43; Stop 09/10/16 at 09:44; Status DC Acetaminophen (Tylenol 650 Mg/ 20 ml Liq) 650 mg NOW ONCE PO Last administered on 09/10/16 11:19; Start 09/10/16 at 10:30; Stop 09/10/16 at 10:31 ; Status DC Dextrose (D50w (Syr) Inj) 50 ml STK-MED ONCE .ROUTE ; Start 09/10/16 at 12:49; Stop 09/10/16 at 12:50; Status DC Dextrose (D50w (Syr) Inj) 50 ml NOW ONCE IV PUSH Last administered on 12:45; Start 09/10/16 at 13:30; Stop 09/10/16 at 13:31; Status DC Miscellaneous Information SPECIFIC LAB TO BE DRAWN:VANCOMYCIN TROUGH DATE TO... ONCE ONCE .XX Last administered on 09/11/16 11:45; Start 09/11/16 at 11:45; Stop 09/11/16 at 11:46; Status DC Midazolam HCl (Versed Inj) 3 mg ONCE ONCE IV PUSH Last administered on 09:44; Start 09/10/16 at 14:15; Stop 09/10/16 at 14:16; Status DC Dextrose 50 ml 50 ml NOW ONCE IV PUSH Last administered on 09/10/16 16:09; Start 09/10/16 at 16:00; Stop 09/10/16 at 16:34; Status DC Sodium Chloride (NS 1000 ml Inj) 1,000 ml @ 100 mls/hr Q10H IV Last administered on 09/14/16 11:10; Start 09/11/16 at 12:00 Propranolol HCl (Inderal) 20 mg Q8HR PO Last administered on 09/12/16 04:44; Start 09/11/16 at 14:00; Stop 09/12/16 at 17:13; Status DC Magnesium Citrate (Citroma Liq) 300 ml ONCE ONCE NG ; Start 09/12/16 at 09:00; Stop 09/12/16 at 09:01; Status DC Lactulose 30 ml 30 ml QID PO Last administered on 09/13/16 10:08; Start at 09:00 Vancomycin HCl/ Sodium Chloride (Vancomycin Inj/ NS 250 ml Inj) 250 ml @ 250 mls/hr Q12H IV Last administered on 09/12/16 21:29; Start 09/12/16 at 10:00; Stop 09/13/16 at 08:39; Status DC Miscellaneous Information SPECIFIC LAB TO BE ... ONCE ONCE .XX ; Start at 09:45; Stop 09/14/16 at 09:45; Status DC Furosemide (Lasix Inj) 20 mg ONCE ONCE IV PUSH Last administered on 09/12/16 12:04; Start 09/12/16 at 09:30; Stop 09/12/16 at 09:31; Status DC Mannitol 12.5 gm 12.5 gm Q8H IV Last administered on 09/12/16 15:37; Start at 14:00; Stop 09/12/16 at 21:51; Status DC Sodium Chloride 188 meq/Sodium Chloride 1,047 ml @ 20 mls/hr Q24H IV Last administered on 09/13/16 16:06; Start 09/12/16 at 16:00 Norepinephrine Bitartrate (Levophed-Dextrose Drip) 250 ml @ 0 mls/hr TITRATE IV Last administered on 09/13/16 06:51; Start 09/12/16 at 18:00 Terbutaline Sulfate (Brethine Inj) 1 mg UNSCH PRN SQ For Extravasation; Start 09/12/16 at 18:00 Iohexol (Omnipaque 350 Inj) 30 ml STK-MED ONCE IV Last administered on 21:02; Start 09/12/16 at 21:02; Stop 09/12/16 at 21:03; Status DC Mannitol (Mannitol Inj) 12.5 gm Q8H IV Last administered on 09/13/16 06:23; Start 09/12/16 at 23:00; Stop 09/17/16 at 14:59 Potassium Bicarb/ Potassium Chloride (K-Lyte Cl Eff) 25 meq DAILY PO Last administered on 09/14/16 09:43; Start 09/13/16 at 09:00 Magnesium Citrate (Citroma Liq) 300 ml ONCE ONCE PO ; Start 09/13/16 at 08:30; Stop 09/13/16 at 08:41; Status DC Bisacodyl (Dulcolax Supp) 10 mg DAILY RECTAL Last administered on 09/13/16 10: 09; Start 09/13/16 at 09:00 Attending Statement Continue neuro checks. Anoxic encephalopathy. ICP monitor removed Pulmonary. Continue mechanical ventilation. Continue aggressive pulmonary toilette, nasotracheal suction, and breathing treatments with nebulizers. Nutrition. NPO Renal. monitor closely urine output, BUN and creatinine Endocrine. Monitor serial Acu checks and SSI as needed in detail ID IV antibiotics for staph aereus. Leukopenia, resolved Thrombocytopenia consumptive-resovled Large IVC thrombus - Monitor CBC CMP coags. - IVC filter placed 09/12 due to inability to anticoagulate Protonix for stress ulcer prophylaxis Carlitos tate and SCD's for DVT prophylaxis Jomar José MD Sep 19, 2016 12:03
[2016-09-19] MEDS: SODIUM CHLORIDE 0.9% FLUSH 10 ML FLUSH IV FLUSH PRN (19:58)
[2016-09-19] MEDS ORDERED: ACETAMINOPHEN 1000 MG/100 ML VIAL IV SCH (22:15)
[2016-09-20] VITALS (18 sets, daily range): BP systolic 122–142; BP diastolic 59–80; PULSE 102–117; RESP 18–24; TEMP 97.1–100.7; O2SAT 94–100
[2016-09-20] MEDS: clonazePAM 1 MG TAB PO SCH ×3 (00:54→16:08)
[2016-09-20] MEDS: PROPRANOLOL HCL 20 MG TAB PO SCH ×3 (06:00→16:07)
[2016-09-20] MEDS: CEFEPIME INJ 2,000 MG in SODIUM CHLORIDE 0.9% INJ 100 ML IV SCH ×2 (06:04→13:25)
[2016-09-20] MEDS: FONDAPARINUX SODIUM 7.5 MG/0.6 ML SYRINGE SQ SCH (06:04)
--- NOTE | 2016-09-20 06:53 | HHI.CCPN ---
Subjective Remarks/Hospital Course 19 years old was brought in as a trauma alert. He has had to hanged herself and was found by her roommate. Unknown time of hanging. When fire department arrived patient was in asystole. CPR was started and one round of meds were given as per ACLS protocol. There was return of spontaneous circulation soon after that. Patient was brought in getting breaths by BV. She had a blood pressure and half way to arriving to the ER she started having some spontaneous respirations. She continued to be a GCS 3 when she arrived. She is admitted to critical care unit and therapeutic hypothermia protocol is initiated. SUBJ 09/08/16: Patient achieving target temperature but developing severe shock. Levothroid had been increased to 30 mcg/m Mehdi-Synephrine added. Additional fluid boluses ordered currently on bicarbonate infusion additional one amp of bicarbonate given. Chest x-ray shows severe aspiration pneumonitis predominantly right lower lobe infiltrates. Zosyn 4.5 GM IV q8 started, give single dose of vanc 09/09/16: Patient is in the rewarming phase of hypothermia protocol. Once sedation was lightened and taken off the Nimbex, patient started developing tonic-clonic generalized seizure like activity. Bolused with a total of 6 mg Ativan in divided doses and restarted on Versed and propofol infusions. Loaded with Cerebyx 1 g and scheduled at 100 mg every 8 hours. Stat EEG pending. Neurology following 09/10/16: Remains on high dose of vasopressors, MRI brain shows evidence of anoxic brain injury. MRA neck bilateral common carotid narrowing. Start on aspirin get vascular surgery consult. No further seizure-like episodes noted. Pupils are equal bilaterally with slight withdrawal of right lower extremity to central pain. 09/11/16: Currently remains off all sedation in process. No noticeable improvement in neuro status, slight withdrawal x4. Aspirin started for bilateral common carotid narrowing-vascular surgery consult appreciated. Continue Cerebyx EEG sharp activity on eeg. MRI indicates diffuse anoxic brain injury with poor prognosis. EEG bihemispheric slowing and intermittent right central posterior sharp discharges which appear to be epileptiform. Dilantin level is therapeutic 09/12/16: Overnight had episodes myoclonus versus seizures. Neuro exam remains poor. No significant improvement. Low grade fever. Remains tachypneic on the ventilator. Restart propofol for vent synchrony 09/13/16: Neuro exam remains unchanged overnight. ICP monitor placed 09/12 for cerebral edema- ICP controlled with hyperosmolar therapy. 2 episodes of seizures vs myoclonus reported. Repeat EEG today. IVC filter placed 09/12/16 evening for large IVC thrombus. Unable to anticoagulate due to thrombocytopenia , cerebral edema-high risk of bleeding 09/14 EEG yesterday showed severe encephalopathy. ICP mainly 10-13 but intermittently spiked up to max of 22, improved with propofol bolus. Myoclonus noted with any tactile stimulation. 09/15 Comatose with myoclonus. ICP intermittently increased to 20, sometimes drifts down without intervention, sometimes improves with sedation. Extensor posturing. 09/16 Off continuous sedation. Comatose with myoclonus. Corneal reflex present on left, absent on right. ICP monitor removed today per NSG. 09/17: no significant neurologic improvement. off sedation. only intermittent ativan for myoclonus which improves symptoms. family meeting today, and family requests aggressive care, including trach/peg. 09/18: No change in neuro exam. Continued to spike high temperatures up to 102.5. CBC pending. I will discontinue Cerebyx start Keppra, check gallbladder ultrasound again and placed on empiric cefepime and single dose of vancomycin. Sputum culture Gram stain shows few GPC. On cooling blanket, and Tylenol. Motrin added. s/p Trach yesterday Subjective: 09/19: no improvements or changes. sodium trending down. repeat sputum culture 09/17 growing staph aureus. KP pending. 09/20: No change in neuro exam. Overnight spike fever 103 again. Patient has bloody secretion from bilateral nares-she may have some acute sinusitis. Continue broad-spectrum antibiotics. Discontinue NG tube as the patient is getting PEG today Objective Vital Signs Date Time Temp Pulse Resp B/P Pulse Ox O2 Delivery O2 Flow Rate FiO2 09/20/16 04:41 99 40 09/20/16 04:00 99.0 104 18 125/75 09/19/16 10:28 T-piece 6.00 Intake and Output 09/19/16 09/19/16 09/20/16 08:00 16:00 00:00 Intake Total 303 ml 446 ml 676 ml Balance 303 ml 446 ml 676 ml Result Diagram: 09/19/16 0545 09/19/16 0545 Imaging Last [address] 09/07/16 1800 Signed Impressions: Service Date/Time: Wednesday, September 07, 2016 18:06 - CONCLUSION: Normal examination. Artem Madera MD Chest X-Ray 09/07/16 1800 Signed Impressions: Service Date/Time: Wednesday, September 07, 2016 17:49 - CONCLUSION: Subtle densities in the upper lobes. Otherwise unremarkable chest. Artem Madera MD ADDENDUM: See above. Artem Madera MD Cervical Spine CT 09/07/16 1800 Signed Impressions: Service Date/Time: Wednesday, September 07, 2016 18:06 - CONCLUSION: 1. No fracture or subluxation. 2. Scattered groundglass nodules throughout the upper lobes, nonspecific but can be seen with hypersensitivity pneumonitis. Artem Madera MD Objective Remarks GENERAL: young female, lying in bed. Intubated. Comatose SKIN: Warm and dry. HEAD: Normocephalic. Pupils are 4 mm reactive to 3 mm bilaterally. EYES: No scleral icterus. No injection or drainage. NECK: trachea midline. No JVD. carotids palpable CARDIOVASCULAR: Tachycardic rhythm. No murmurs. RESPIRATORY: Breath sounds equal bilaterally. Clear to auscultation anteriorly GASTROINTESTINAL: Abdomen soft, non-tender, distended. MUSCULOSKELETAL: No cyanosis, 1+ edema. NEURO: Intubated, off all sedation except intermittent Ativan. Pupils are 4 mm reactive to 3 mm bilaterally. Slight corneal reflex present on the left, absent on the right. No cough or gag. Disconjugate gaze. No spontaneous eye opening. General myoclonic movements on stimulation. To deep central and peripheral noxious stimuli patient showing extensor posturing A/P Assessment and Plan Assessment: 20yF s/p hanging event and s/p cardiac arrest with severe anoxic injury. family continues to want aggressive care. Status post tracheostomy A/P NEURO: Severe anoxic brain injury Bilateral common carotid narrowing Attempted suicide by hanging Seizure Depression - MRI shows evidence of diffuse anoxic brain injury. MRA neck bilateral common carotid narrowing-vascular surgery consulted, no intervention. started aspirin - CT 09/12-loss salguero/white matter differentiation c/w cerebral edema. ICP monitor placed 09/12 , removed 8/3. - EEG 09/10 bilateral sharp activity, on Dilantin. Level therapeutic 09/12. DC Dilantin 09/18/16 due high fever, started Keppra - EEG 09/11 Encephalopathy, no sz. - EEG 09/13severe encephalopathy. (delta waves) - s/p induced hypothermia. - Neurology Dr. Wong following. He states prognosis is poor and recommended comfort measures. - NSG Dr. José states poor prognosis, recommends comfort care. - Toxicology negative - Ativan for symptomatic control for severe myoclonus. - Oxycodone for pain. Fentanyl prn CV: Shock resolved Status postcardiac arrest - Off Levophed which was used to maintain CPP Resp: Acute hypoxemic respiratory failure Pre-hospital Aspiration pneumonitis Acute lung injury - Intubated for hypoxemic respiratory failure from pre hospital aspiration - PRVC, ventilator bundle. DuoNeb every 6 hours and when necessary - Daily SBTs - Patient has evidence of aspiration on admission as indicated by right lower lobe infiltrate - s/p trach 09/17/16. Vijay Jackson and Kunal - daily trach collar trials. GI: Transaminitis most likely from shock, resolved. Hyponatremia - Tube feedings Jevity 1.5 at 50 L per hour per nutrition recommendations. DC NGT due to possible sinusitis - PEG on Tuesday - repeat GB u/s without signs of cholecystitis 09/18 - Continue salt tabs 3gm po q8hr. - Had bowel and after mag citrate was given. - Liver ultrasound 09/12large nonocclusive thrombus and IVC. Renal: Acute kidney injury- resolved. Fluid overload- persistent. - monitor BUN/creatinine - anton removed and voiding on own. ID: Septic, neurogenic shock-resolved Aspiration pneumonia, prehospital High fever Sputum with MSSA 09/08. - Zosyn 4.5 g IV every 6 hours 09/08-09/15 .fever may be secondary to DVT. Off vancomycin. - Fever up to 103 GPC on sputum MSSA. Vancomycin 1 g IV 1. Cefepime 2 g IV every 8 hours - sputum culture 09/17 staph aureus. once 48h cultures, would de-escalate. Endo: - Electrolyte replacement per protocol - Sliding-scale insulin if needed HEME: Leukopenia, resolved Thrombocytopenia consumptive-resovled Large IVC thrombus - Monitor CBC CMP coags. - IVC filter placed 09/12 due to inability to anticoagulate (thrombocytopenia) and cerebral edema - This was discussed with hematology Dr. Kwok and neurologist surgeon Dr. Davenport - Now platelets improved, Arixtra 7.5 mg daily from 09/18/16. 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 KP pending. DVT GI prophylaxis - IVC filter in place. Continue po ppi.Arixtra started 09/18/16 Lines: - Right femoral cooling catheter and right brachial arterial line placed by Dr. England-DC both. L subclavian central line 09/10/16 -09/17 Findings of status myoclonus, persistent coma with extensor posturing vs absent motor response are consistent with poor prognosis for functional neurologic recovery. MRI demonstrates evidence of anoxic injury. Discussed with family poor prognosis and would expect her to require trach/PEG and be dependent for ADL in nursing facility. 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 She states that she "already had suffered plenty from her depression and psychological demons". However, after full and detailed conversation with Dr. Bragg and the palliative care team, they now want to pursue tracheostomy/PEG tube placement, and give her at least a few more weeks to attempt to improve. Congruent with her wishes, trach placed on 09/17/16. PEG planned for Tuesday. CM to look for placement Lyndon Bhatt MD Sep 20, 2016 06:52
[2016-09-20] MEDS: LORazepam 2 MG/ML VIAL IV PRN ×7 (07:44→18:51)
[2016-09-20] MEDS: levETIRAcetam 1000 MG INJ 100 ML IV SCH ×2 (07:45→20:22)
[2016-09-20] MEDS: SODIUM CHLORIDE 1 GRAM TAB PO SCH ×2 (08:00→16:08)
[2016-09-20] MEDS: BISACODYL 10 MG SUPP RECTAL SCH (09:00)
[2016-09-20] MEDS: ARTIFICIAL TEARS OPTH SOLN 15 ML BTL EACH EYE SCH ×2 (09:00→20:22)
[2016-09-20] MEDS: DOCUSATE SODIUM 100 MG/10 ML UDC PO SCH ×2 (09:00→20:21)
[2016-09-20] MEDS: POTASSIUM CHLORIDE 25 MEQ EFFERVESCENT TAB PO SCH (09:00)
[2016-09-20] MEDS: PANTOPRAZOLE SOD 40 MG DELAYED RELEASE TAB PO SCH (09:00)
[2016-09-20] MEDS: LACTULOSE SYRUP 20 GM/30 ML CUP PO SCH ×4 (09:00→20:22)
[2016-09-20 11:26] LABS: HEMATOCRIT 28.1 % (35.0-46.0); MEAN CELL VOLUME 81.3 FL (80.0-100.0); MEAN CORPUSCULAR HEMOGLOBIN 28.1 PG (27.0-34.0); MEAN CORPUSCULAR HGB CONC 34.6 % (32.0-36.0); PLATELET COUNT 359 TH/MM3 (150-450); RED BLOOD COUNT 3.46 MIL/MM3 (4.00-5.30); RED CELL DISTRIBUTION WIDTH 14.7 % (11.6-17.2); REVIEW FLAG FINAL; WHITE BLOOD COUNT 10.2 TH/MM3 (4.0-11.0)
[2016-09-20 11:46] LABS: BICARBONATE 27.3 MEQ/L (21.0-32.0); POTASSIUM 3.8 MEQ/L (3.5-5.1)
--- NOTE | 2016-09-20 14:35 | HHI.HCPN ---
Reason for visit a. To assist with evaluation and management of symptoms including: Dyspnea , possible pain; encephalopathy b. To assist medical decision maker(s) with: better understanding of current medical conditions; weighing benefits/burdens of medical treatment options; making medical treatment decisions. . . Subjective/Interval History No significant neurological improvement. Patient remains [id number], unresponsive in SICU. Awaiting PEG placement scheduled for today. Tmax 103.0 at 21:00 last night. HR 102-115. BP 114-168/ 71-81. Pulse ox 94- 99 on 40% FI02. Voiding . Bowels moving. WBC 10.2 ; Hg 9.7; No new culture results -- Sputum from 09/17 + for Staph aureus No new imaging. Pain management: * receiving oxycodone 5 mg via tube q 6 hours ATC * Receiving fentanyl 50 mcg q 1 hour prn pain -- received 7 doses in last 24 hours. Benzo use * Clonazepam 1 mg q 8 hours ATC via tube * Lorazepam 1 mg q 1 hour prn seizure activity 9 doses in last 24 hours. . Family/friend interactions Grandmother at bedside. Mother had wanted frequent and open communication with the the medical team. Grandmother told us that mother was having a particularly difficult time today and that it was best to re-connect with her tomorrow. We agreed. . Advance Directives Living Will: Never completed Health Care Surrogate: Never completed Durable Power of Package Drier: Never completed Objective Vital Signs Date Time Temp Pulse Resp B/P Pulse Ox O2 Delivery O2 Flow Rate FiO2 09/20/16 12:00 115 09/20/16 12:00 99.2 09/20/16 12:00 100.0 115 23 122/69 96 09/20/16 12:00 40 09/20/16 11:29 99 40 09/20/16 10:00 114 09/20/16 08:47 98 40 09/20/16 08:00 99.2 115 24 142/80 94 09/20/16 08:00 99.2 09/20/16 08:00 40 09/20/16 08:00 115 09/20/16 06:00 110 09/20/16 06:00 40 09/20/16 04:41 99 40 09/20/16 04:00 40 09/20/16 04:00 104 09/20/16 04:00 99.0 09/20/16 04:00 99.0 104 18 125/75 96 09/20/16 02:00 102 09/20/16 01:14 95 40 09/20/16 00:00 40 09/20/16 00:00 114 09/20/16 00:00 100.7 114 20 125/59 95 09/19/16 22:00 130 09/19/16 21:00 103.0 09/19/16 20:34 100 40 09/19/16 20:00 40 09/19/16 20:00 101.7 110 14 135/78 95 09/19/16 20:00 101.7 09/19/16 20:00 110 09/19/16 18:00 87 09/19/16 16:10 95 40 09/19/16 16:00 40 09/19/16 16:00 98.4 09/19/16 16:00 87 09/19/16 16:00 98.4 87 14 113/74 94 Intake & Output 09/20/16 09/20/16 07:00 19:00 Intake Total 1016 ml Balance 1016 ml Intake IV Total 637 ml Tube Feeding 259 ml Other 120 ml # Voids 5 # Sanitary Pads 0 Pads 0 Pads 0 Pads . Physical Exam CONSTITUTIONAL/GENERAL: This is an adequately nourished patient, in no apparent distress, on the ventilator. Frequent tremor with occasional jerk affecting most of her body. TUBES/LINES/DRAINS: Tracheostomy; Anton, peripheral ivs. SCDs; SKIN: No jaundice, rashes, or lesions. No wounds seen anteriorly. Skin temperature appropriate. Not diaphoretic. HEAD: Atraumatic. Normocephalic. EYES: Pupils 2-3 mm and not reactive. No scleral icterus. No injection or drainage. Fundi not examined. ENT: Nose without bleeding or purulent drainage. NECK: Trachea midline. Supple, nontender. No palpable thyroid enlargement or nodularity. CARDIOVASCULAR: Tachycardic ; Regular rhythm without murmurs, gallops, or rubs. No JVD. Peripheral pulses symmetric. RESPIRATORY/CHEST: Symmetric, unlabored respirations on the ventilator. No wheezes or crackles. GASTROINTESTINAL: Abdomen soft, nondistended. No hepato-splenomegaly, or palpable masses. Bowel sounds present. GENITOURINARY: Without palpable bladder distension. Anton catheter in place. MUSCULOSKELETAL: Extremities without clubbing, cyanosis. 1+ edema of the distal extremities. No mottling or clubbing. LYMPHATICS:Not examined. NEUROLOGICAL: Unresponsive to voice, touch, or painful stimuli. Near continuous tremor / myoclonus noted involving all four extremities. PSYCHIATRIC: Unable to evaluate due to her clinical condition . Diagnostic Tests Laboratory Laboratory Tests Test 09/18/16 09/18/16 09/19/16 09/20/16 05:53 08:00 05:45 11:00 Blood Gas Puncture Site PED Blood Gas Patient Temperature 98.6 Blood Gas HCO3 24 mmol/L (22-26) Blood Gas Base Excess 0.6 mmol/L (-2-2) Blood Gas Oxygen Saturation 95 % (90-100) Arterial Blood pH 7.47 (7.380-7.420) Arterial Blood Partial 33 mmHg (38-42) Pressure CO2 Arterial Blood Partial 85 mmHg Pressure O2 (61-120) Arterial Blood Oxygen Content 14.9 Vol % (12.0-20.0) Arterial Blood 0.9 % (0-4) Carboxyhemoglobin Arterial Blood Methemoglobin 0.7 % (0-2) Blood Gas Hemoglobin 11.1 G/DL (12.0-16.0) Oxygen Delivery Device VENTILATOR Blood Gas Ventilator Setting AC/18/600/PEEP5 Blood Gas Inspired Oxygen 40 % White Blood Count 6.0 TH/MM3 10.2 TH/MM3 10.2 TH/MM3 (4.0-11.0) (4.0-11.0) (4.0-11.0) Red Blood Count 4.10 MIL/MM3 3.54 MIL/MM3 3.46 MIL/MM3 (4.00-5.30) (4.00-5.30) (4.00-5.30) Hemoglobin 11.6 GM/DL 10.0 GM/DL 9.7 GM/DL (11.6-15.3) (11.6-15.3) (11.6-15.3) Hematocrit 33.6 % 28.8 % 28.1 % (35.0-46.0) (35.0-46.0) (35.0-46.0) Mean Corpuscular Volume 82.0 FL 81.4 FL 81.3 FL (80.0-100.0) (80.0-100.0) (80.0-100.0) Mean Corpuscular Hemoglobin 28.3 PG 28.2 PG 28.1 PG (27.0-34.0) (27.0-34.0) (27.0-34.0) Mean Corpuscular Hemoglobin 34.5 % 34.7 % 34.6 % Concent (32.0-36.0) (32.0-36.0) (32.0-36.0) Red Cell Distribution Width 14.8 % 15.1 % 14.7 % (11.6-17.2) (11.6-17.2) (11.6-17.2) Platelet Count 263 TH/MM3 278 TH/MM3 359 TH/MM3 (150-450) (150-450) (150-450) Mean Platelet Volume 7.6 FL 7.5 FL 7.4 FL (7.0-11.0) (7.0-11.0) (7.0-11.0) Neutrophils (%) (Auto) 81.6 % (16.0-70.0) Lymphocytes (%) (Auto) 10.5 % (9.0-44.0) Monocytes (%) (Auto) 6.7 % (0.0-8.0) Eosinophils (%) (Auto) 0.7 % (0.0-4.0) Basophils (%) (Auto) 0.5 % (0.0-2.0) Neutrophils # (Auto) 4.9 TH/MM3 (1.8-7.7) Lymphocytes # (Auto) 0.6 TH/MM3 (1.0-4.8) Monocytes # (Auto) 0.4 TH/MM3 (0-0.9) Eosinophils # (Auto) 0.0 TH/MM3 (0-0.4) Basophils # (Auto) 0.0 TH/MM3 (0-0.2) CBC Comment DIFF FINAL Differential Comment Sodium Level 134 MEQ/L 136 MEQ/L 138 MEQ/L (136-145) (136-145) (136-145) Potassium Level 4.2 MEQ/L 3.7 MEQ/L 3.8 MEQ/L (3.5-5.1) (3.5-5.1) (3.5-5.1) Chloride Level 98 MEQ/L 101 MEQ/L 102 MEQ/L (98-107) (98-107) (98-107) Carbon Dioxide Level 28.9 MEQ/L 27.2 MEQ/L 27.3 MEQ/L (21.0-32.0) (21.0-32.0) (21.0-32.0) Anion Gap 7 MEQ/L (5-15) 8 MEQ/L (5-15) 9 MEQ/L (5-15) Blood Urea Nitrogen 15 MG/DL (7-18) 15 MG/DL (7-18) 13 MG/DL (7-18) Creatinine 0.66 MG/DL 0.66 MG/DL 0.46 MG/DL (0.50-1.00) (0.50-1.00) (0.50-1.00) Estimat Glomerular Filtration 115 ML/MIN 115 ML/MIN 175 ML/MIN Rate (>89) (>89) (>89) Random Glucose 85 MG/DL 100 MG/DL 87 MG/DL (74-106) (74-106) (74-106) Calcium Level 8.2 MG/DL 8.0 MG/DL 8.4 MG/DL (8.5-10.1) (8.5-10.1) (8.5-10.1) Magnesium Level 2.2 MG/DL (1.5-2.5) Total Bilirubin 0.3 MG/DL (0.2-1.0) Aspartate Amino Transf 75 U/L (16-38) (AST/SGOT) Alanine Aminotransferase 37 U/L (9-42) (ALT/SGPT) Alkaline Phosphatase 76 U/L (45-117) Total Protein 7.4 GM/DL (6.4-8.2) Albumin 2.6 GM/DL (3.4-5.0) . Result Diagram: 09/20/16 1100 09/20/16 1100 Microbiology Microbiology Date/Time Procedure Status Source Growth 09/17/16 07:23 Aerobic Blood Culture - Preliminary Resulted Blood Peripheral NO GROWTH IN 3 DAYS 09/17/16 07:23 Anaerobic Blood Culture - Preliminary Resulted Blood Peripheral NO GROWTH IN 3 DAYS 09/17/16 06:15 Gram Stain - Final Complete Sputum Endotracheal 09/17/16 06:15 Sputum Culture - Final Complete Staphylococcus Aureus . Imaging Last Impressions Liver Ultrasound 09/18/16 Signed Impressions: Service Date/Time: Sunday, September 18, 2016 09:27 - CONCLUSION: 1. There is sludge within the gallbladder. No other findings are present to indicate acute cholecystitis. 2. Mild splenomegaly. Miller Lee MD Chest X-Ray 09/18/16 Signed Impressions: Service Date/Time: Sunday, September 18, 2016 05:01 - CONCLUSION: 1. Right perihilar edema versus pneumonia. There has been no significant change when compared to the prior exam. 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 This is nonocclusive. A retrievable IVC filter was deployed below the main hepatic veins but it was necessary to cross an accessory right hepatic vein. Jose Armando Jackson Jr., MD Head CT 09/12/16 Signed Impressions: Service Date/Time: Monday, September 12, 2016 09:29 - CONCLUSION: Mild loss of lemos matter definition that can be seen with increasing intracranial pressure. Ricki Cavazos MD FACR Neck Magnetic Resonance Angiography 09/09/16 Signed Impressions: Service Date/Time: August 16:02 - CONCLUSION: 1. Moderate to severe smooth narrowing of the left common carotid artery and also moderate narrowing of the proximal right common carotid artery as well as narrowing of both proximal vertebral arteries likely related to recent hanging. Etiology could be related to vasospasm or recent extrinsic prolonged compression. The distal internal carotid arteries and vertebral artery have more normal calibers. Findings called to Dr. Bhatt at the time of dictation. Gideon Brown MD Cervical Spine MRI 09/09/16 Signed Impressions: Service Date/Time: August 16:02 - CONCLUSION: 1. Very minimal degenerative disc disease at C5-6. 2. No acute fracture or prevertebral soft tissue swelling. 3. No focal cervical cord abnormality. Tray Santiago MD Brain MRI 09/09/16 Signed Impressions: Service Date/Time: August 16:02 - CONCLUSION: 1. Diffuse FLAIR-weighted hyperintensities involving the caudate nuclei bilaterally, bilateral hummel radiata, as well as the bilateral parietal and occipital cortex consistent with the patient's clinical diagnosis of anoxic encephalopathy. 2. No acute hemorrhage, midline shift, extra-axial fluid collection or abnormal enhancement. 3. Small fluid level within the right sphenoid sinus. Tray Santiago MD Cervical Spine CT 09/07/16 1800 Signed Impressions: Service Date/Time: Wednesday, September 07, 2016 18:06 - CONCLUSION: 1. No fracture or subluxation. 2. Scattered groundglass nodules throughout the upper lobes, nonspecific but can be seen with hypersensitivity pneumonitis. Artem Madera MD . Procedures Prakash bolt 09/12/16 (and subsequent removal) . 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 . (2) pain 0-10 Scale: Unable to quantify Comment: Possible sources of pain include trauma from hanging; tracheostomy wound; prolonged bedbound status; venous access catheters; anton; etc. Pertinent Non-Medical Issues Psychosocial: Unmarried, no children. Spiritual: Not spiritual or hinduism, but family reports that they are Congregational and quite spiritual. Their rabbi has participated in care during this hospitalization. Legal: The patient lacks capacity for decision-making and will not regain that capacity. The patient's father has not been a part of her life since , and his whereabouts are unknown. The patient is unmarried, and her mother is thus the decision making proxy. Ethical issues impacting care: None . Important Contacts Mother: Agnieszka Tyson" [facility] [phone] Grandmother: Loy "Edie" Cartesian [phone] Boyfriend: Seth "Ashok Thibodeaux [phone] . Prognosis The patient's prognosis is poor, and clearly she will not recover significant brain function. If the goals become comfort oriented, she is appropriate for withdrawal of life support, and hospice care. . Code Status: Full Code Plan * FULL CODE, per patient's mother 09/17/16. The patient's mother notes that her Congregational tradition "would not allow me to make her a DNR." * GOALS: The patient's mother has a clear understanding of the brain injury and poor prognosis, but wants to "allow more time for a possible miracle." She saw no reason to delay proceeding with trach and PEG, as she is not going to with withdraw life support within the upcoming few days. She wants all current care to continue, and for the patient to remain FULL CODE. * DECISION-MAKING: The patient lacks capacity for decision-making and there is no reasonable medical probability of recovering capacity. There has been no contact with the patient's father since the patient was born, and the decision making proxy is the patient's mother "Reymundo." * SYMPTOMS: She is receiving some opiates on a regular basis, although it is difficult to know if there is any actual discomfort. Dyspnea is being managed via the ventilator. Encephalopathy is likely secondary to the anoxic injury with neurology feeling there is poor prognosis for any type of meaningful recovery. I have no further medication recommendations at this time. * Bereavement services were discussed with the mother, grandmother, and boyfriend, and they acknowledge that those will be available to them through a referral from our [facility]. * Nursing staff informed that patient's mother requests frequent communications , including being notified prior to any tests or scans ("even things that don't require them to call for consent"). We were advised by patient's grandmother on 09/20 that it was best to wait until 09/21 to speak with mother again. * Palliative Care will continue to follow the patient during this hospitalization to assist with symptom management and to further clarify goals of medical treatment as the clinical course evolves. . Attestation To help prompt me to consider important information that might be impacting today's encounter and assessment, information from prior notes written by myself or my colleagues may have been "brought forward" into today's note. My signature on this note, however, is an attestation that I personally performed the exam, history, and/or decision-making noted today, and, unless otherwise indicated, the interactions with patient, family, and staff as well as the review of records all occurred today. I also attest that the listed assessment and stated plan reflect my best clinical judgment today based on the combination of historical information, prior notes, and today's exam/ interactions. When time spent is documented, it refers only to time spent today by the signer, or if indicated, combined time spent today by collaborating physician/nurse practitioner. . Sergey Troncoso MD Sep 20, 2016 14:35
[2016-09-20] MEDS ORDERED: PROPOFOL 200 MG/20 ML AMP IV ONE (15:16)
--- NOTE | 2016-09-20 15:21 | HHI.NSPN ---
Note Status Status: Progress Note Interval History Diagnosis anoxic encephalopathy Interval History The patient has a 20-year-old female brought in as a Trauma Alert. She was found hanging from a pull-up bar. She was in asystole at the scene, treated with epinephrine and regained a pressure after that. Initially she was unresponsive. GCS was 3. The patient has been unresponsive. There has been no seizure activity at present. 09/13. No clinical improvement. Comatose. Myoclonic jerks 09/14 has not shown any clinical improvement 09/15. Rwemains intubated and comatose without improvement 09/17. no significant neurologic improvement. off sedation. only intermittent ativan for myoclonus 09/18. No change in neuro exam. Continued to spike high temperatures up to 102.5. Will discontinue Cerebyx start Keppra. Obtain gallbladder ultrasound. Start empiric cefepime and vancomycin. S/p Trach yesterday 09/19. No neuro changes. no improvements or changes. sodium trending down. repeat sputum culture 09/17 growing staph aureus 09/20. Overnight fevers to 103 again. No neurological improvement. She has bloody secretion from bilateral nares, suspected acute sinusitis. Continue broad- spectrum antibiotics. She is getting a PEG today Labs, Micro, & Vital Signs Results Date Time Temp Pulse Resp B/P Pulse Ox O2 Delivery O2 Flow Rate FiO2 09/20/16 14:00 115 09/20/16 12:00 115 09/20/16 12:00 99.2 09/20/16 12:00 100.0 115 23 122/69 96 09/20/16 12:00 40 09/20/16 11:29 99 40 09/20/16 10:00 114 09/20/16 08:47 98 40 09/20/16 08:00 99.2 115 24 142/80 94 09/20/16 08:00 99.2 09/20/16 08:00 40 09/20/16 08:00 115 09/20/16 06:00 110 09/20/16 06:00 40 09/20/16 04:41 99 40 09/20/16 04:00 40 09/20/16 04:00 104 09/20/16 04:00 99.0 09/20/16 04:00 99.0 104 18 125/75 96 09/20/16 02:00 102 09/20/16 01:14 95 40 09/20/16 00:00 40 09/20/16 00:00 114 09/20/16 00:00 100.7 114 20 125/59 95 09/19/16 22:00 130 09/19/16 21:00 103.0 09/19/16 20:34 100 40 09/19/16 20:00 40 09/19/16 20:00 101.7 110 14 135/78 95 09/19/16 20:00 101.7 09/19/16 20:00 110 09/19/16 18:00 87 09/19/16 16:10 95 40 09/19/16 16:00 40 09/19/16 16:00 98.4 09/19/16 16:00 87 09/19/16 16:00 98.4 87 14 113/74 94 09/20/16 07:00 Intake Total 1462 ml Balance 1462 ml Constitutional Vital Signs Date Time Temp Pulse Resp B/P Pulse Ox O2 Delivery O2 Flow Rate FiO2 09/20/16 14:00 115 09/20/16 12:00 115 09/20/16 12:00 99.2 09/20/16 12:00 100.0 115 23 122/69 96 09/20/16 12:00 40 09/20/16 11:29 99 40 09/20/16 10:00 114 09/20/16 08:47 98 40 09/20/16 08:00 99.2 115 24 142/80 94 09/20/16 08:00 99.2 09/20/16 08:00 40 09/20/16 08:00 115 09/20/16 06:00 110 09/20/16 06:00 40 09/20/16 04:41 99 40 09/20/16 04:00 40 09/20/16 04:00 104 09/20/16 04:00 99.0 09/20/16 04:00 99.0 104 18 125/75 96 09/20/16 02:00 102 09/20/16 01:14 95 40 09/20/16 00:00 40 09/20/16 00:00 114 09/20/16 00:00 100.7 114 20 125/59 95 09/19/16 22:00 130 09/19/16 21:00 103.0 09/19/16 20:34 100 40 09/19/16 20:00 40 09/19/16 20:00 101.7 110 14 135/78 95 09/19/16 20:00 101.7 09/19/16 20:00 110 09/19/16 18:00 87 09/19/16 16:10 95 40 09/19/16 16:00 40 09/19/16 16:00 98.4 09/19/16 16:00 87 09/19/16 16:00 98.4 87 14 113/74 94 09/20/16 07:00 Intake Total 1462 ml Balance 1462 ml Review of Systems/Exam Exam She is intubated and sedated. No response to pain. Spontaneous Myoclonic jerks Cranial Nerves: Pupils 2mm, non-reactive to light. Eyes appear conjugated. no nystagmus, Corneal reflex present on left, absent on right Face musculature appeared symmetrical at rest. Face sensation, olfaction, visual phillips, and hearing cannot be adequately assessed due to his neurological condition. The patient has a corneal reflex. SHe has no gag reflex. The sternocleidomastoid and trapezius are symmetrical. Cervical Spine: Her neck is soft, supple, without nuchal rigidity. Motor: No response to pain Reflexes: Deep tendon reflexes are trace in the biceps, triceps, and brachioradialis, bilaterally, in the upper extremities. In the lower extremities, the patellar and ankles TRACE. There is a bilateral silent response to plantar stim. There is no clonus Sensory: On examination there is no response to painful stimuli Cerebellar: Examination cannot be adequately assessed due to the patient's neurological condition. Medications Current Medications Current Medications Etomidate 40 mg 40 mg STK-MED ONCE .ROUTE ; Start 09/07/16 at 17:53; Stop at 17:54; Status DC Propofol (Diprivan 1000 Mg/100ml Inj) 100 ml @ As Directed STK-MED ONCE .ROUTE ; Start 09/07/16 at 18:14; Stop 09/07/16 at 18:15; Status DC Succinylcholine Chloride 200 mg 200 mg STK-MED ONCE .ROUTE ; Start 09/07/16 at 18:38; Stop 09/07/16 at 18:39; Status DC Sodium Chloride (NS 1000 ml Inj) 1,000 ml @ 100 mls/hr Q10H IV Last administered on 09/07/16 19:30; Start 09/07/16 at 19:30; Stop 09/08/16 at 03:31 ; Status DC Sodium Chloride (NS Flush) 2 ml UNSCH PRN IV FLUSH FLUSH AFTER USING IV ACCESS ; Start 09/07/16 at 18:45; Stop 09/12/16 at 17:55; Status DC Enalaprilat (Vasotec Inj) 1.25 mg Q8H PRN IV SBP>180, DBP>95; Start 09/07/16 at 18:45; Stop 09/17/16 at 13:35; Status DC Ondansetron HCl (Zofran Inj) 4 mg Q6H PRN IV NAUSEA OR VOMITING; Start at 18:45 Pantoprazole Sodium (Protonix Inj) 40 mg Q24H IVP Last administered on 20:45; Start 09/07/16 at 20:00; Stop 09/17/16 at 13:35; Status DC Docusate Sodium (Colace) 100 mg BID PO Last administered on 09/09/16 21:33; Start 09/07/16 at 21:00; Stop 09/10/16 at 09:20; Status DC Magnesium Hydroxide (Milk Of Magnesia Liq) 30 ml Q6H PRN PO CONSTIPATION; Start 09/07/16 at 18:45 Miscellaneous Information 1 [id number] Last administered on 09/07/16 18:45; Start 09/07/16 at 18:45 Chlorhexidine Gluconate (Chlorhexidine 2% Cloth) Taper DAILY@04 TOP Last administered on 09/12/16 01:00; Start 09/08/16 at 04:00; Stop 09/04/17 at 03:59 Chlorhexidine Gluconate 3 pack 3 pack UNSCH PRN TOP HYGIENIC CARE; Start at 18:45 Propofol 100 ml @ As Directed STK-MED ONCE .ROUTE Last administered on 01:42; Start 09/07/16 at 19:20; Stop 09/07/16 at 19:21; Status DC Midazolam HCl (Versed 100 Mg/ ml Inj) 100 ml @ 0 mls/hr TITRATE IV Last administered on 09/07/16 21:33; Start 09/07/16 at 21:30; Stop 09/11/16 at 11:27 ; Status DC Lorazepam 1 mg 1 mg Q1H PRN IV SEIZURES Last administered on 09/20/16 14:41; Start 09/07/16 at 22:00 Midazolam HCl 100 ml @ 0 mls/hr TITRATE IV ; Start 09/07/16 at 22:00; Stop 09/07 at 22:00; Status DC Miscellaneous Information ml @ 0 mls/hr UNSCH IV ; Start 09/07/16 at 22:00 Sodium Chloride (NS Flush) 2 ml UNSCH PRN IV FLUSH FLUSH AFTER USING IV ACCESS Last administered on 09/19/16 19:58; Start 09/07/16 at 22:00 Sodium Chloride 2 ml 2 ml UNSCH PRN IV FLUSH IV FLUSH; Start 09/07/16 at 22:00 Sodium Chloride (NS 1000 ml Inj) 1,000 ml @ 2,000 mls/hr Q30M IV Last administered on 09/08/16 00:23; Start 09/07/16 at 22:00; Stop 09/07/16 at 22:59 ; Status DC Artificial Tears 1 applic 1 applic Q4H PRN EACH EYE SEE LABEL COMMENTS Last administered on 09/17/16 08:00; Start 09/07/16 at 22:00 Cisatracurium Besylate 100 mg/ Sodium Chloride 250 ml @ 0 mls/hr TITRATE PRN IV ONLY IF SHIVERING Last administered on 09/08/16 08:21; Start 09/07/16 at 21: 30; Stop 09/09/16 at 07:48; Status DC Norepinephrine Bitartrate 4 mg/ Sodium Chloride 250 ml @ 0 mls/hr TITRATE IV ; Start 09/07/16 at 21:30; Stop 09/08/16 at 12:56; Status DC Sodium Chloride 2,000 ml @ 0 mls/hr NOW IV ; Start 09/07/16 at 23:00; Stop at 23:56; Status DC Potassium Chloride 100 ml @ 50 mls/hr Q2H PRN IV For Potassium 2.8 - 3.2 mEq/ L Last administered on 09/13/16 09:02; Start 09/08/16 at 00:30 Potassium Chloride (KCl 20 Meq Premix Inj) 100 ml @ 50 mls/hr Q2H PRN IV For Potassium 2.8 - 3.2 mEq/L Last administered on 09/08/16 18:20; Start 09/08/16 at 00:30 Potassium Bicarb/ Potassium Chloride 50 meq 50 meq UNSCH PRN PO For Potassium 3.3 - 3.5 mEq/L; Start 09/08/16 at 00:30 Potassium Chloride 100 ml @ 25 mls/hr UNSCH PRN IV For Potassium 3.3 - 3.5 mEq /L Last administered on 09/15/16 04:38; Start 09/08/16 at 00:30 Potassium Chloride 100 ml @ 50 mls/hr Q2H PRN IV For Potassium 3.3 - 3.5 mEq/ L Last administered on 09/14/16 18:35; Start 09/08/16 at 00:30 Magnesium Sulfate/ Sodium Chloride (Magnesium Sulfate Inj/NS Inj) 100 ml @ 50 mls/hr UNSCH PRN IV For Magnesium 0.9 - 1.1 mg/dL; Start 09/08/16 at 00:30 Magnesium Oxide 800 mg 800 mg UNSCH PRN PO For Magnesium 1.2 - 1.6 mg/dL; Start 09/08/16 at 00:30 Magnesium Sulfate/ Sodium Chloride (Magnesium Sulfate Inj/NS Inj) 100 ml @ 50 mls/hr UNSCH PRN IV For Magnesium 1.2 - 1.6 mg/dL Last administered on 07:11; Start 09/08/16 at 00:30 Potassium Phosphate 2000 mg 2,000 mg Q4H PRN PO For Phosphorus < 2.5 mg/dL; Start 09/08/16 at 00:30 Sodium Phosphate/ Sodium Chloride (Sodium Phosphate Inj/NS 250 ml Inj) 250 ml @ 42 mls/hr UNSCH PRN IV For Phosphorus < 2.5 mg/dL; Start 09/08/16 at 00:30 Potassium Phosphate 2000 mg 2,000 mg UNSCH PRN PO/TUBE SEE LABEL COMMENTS; Start 09/08/16 at 00:30 Potassium Phosphate 30 mmol/ Sodium Chloride 260 ml @ 42 mls/hr UNSCH PRN IV SEE LABEL COMMENTS; Start 09/08/16 at 00:30 Propofol 100 ml @ As Directed STK-MED ONCE .ROUTE ; Start 09/08/16 at 01:36; Stop 09/08/16 at 01:37; Status DC Propofol (Diprivan 1000 Mg/100ml Inj) 100 ml @ 0 mls/hr TITRATE IV Last administered on 09/16/16 11:59; Start 09/08/16 at 02:00 Vecuronium [place] 10 mg 10 mg STK-MED ONCE .ROUTE ; Start 09/08/16 at 02:33; Stop 09/08/16 at 02:34; Status DC Sodium Chloride (NS 1000 ml Inj) 1,000 ml @ 0 mls/hr NOW IV Last administered on 09/08/16 02:44; Start 09/08/16 at 02:45; Stop 09/08/16 at 03:20; Status DC Vecuronium [place] 10 mg 10 mg NOW IV Last administered on 09/08/16 02:43; Start 09/08/16 at 02:35; Stop 09/08/16 at 02:46; Status DC Sodium Bicarbonate 150 meq/Dextrose 1,150 ml @ 100 mls/hr [id number] IV Last administered on 09/08/16 03:53; Start 09/08/16 at 04:00; Stop 09/08/16 at 12:56 ; Status DC Fentanyl Citrate (fentaNYL DRIP) 250 ml @ 0 mls/hr TITRATE IV Last administered on 09/08/16 05:06; Start 09/08/16 at 05:00; Stop 09/11/16 at 11:27 ; Status DC Phenylephrine HCl (Neosynephrine Inj) 10 mg STK-MED ONCE .ROUTE ; Start at 07:00; Stop 09/08/16 at 07:02; Status DC Phenylephrine HCl 10 mg 10 mg STK-MED ONCE .ROUTE ; Start 09/08/16 at 07:06; Stop 09/08/16 at 07:07; Status DC Piperacillin Sod/ Tazobactam Sod (Zosyn 4.5 Gm Premix) 100 ml @ 200 mls/hr Q6H IV Last administered on 09/16/16 02:36; Start 09/08/16 at 08:00; Stop 09/16/16 at 06:00; Status DC Terbutaline Sulfate 1 mg 1 mg UNSCH PRN SQ For Extravasation; Start 09/08/16 at 07:30; Stop 09/08/16 at 13:02; Status DC Phenylephrine HCl 160 mg/Dextrose 500 ml @ 0 mls/hr TITRATE IV ; Start 09/08/16 at 07:30; Stop 09/08/16 at 12:57; Status DC Sodium Chloride (NS 1000 ml Inj) 1,000 ml @ 999 mls/hr BOLUS ONCE IV Last administered on 09/08/16 07:30; Start 09/08/16 at 07:30; Stop 09/08/16 at 08:30 ; Status DC Albumin Human 25 gm 25 gm ONCE ONCE IV Last administered on 09/08/16 08:05; Start 09/08/16 at 08:00; Stop 09/08/16 at 08:01; Status DC Vancomycin HCl 1000 mg/Sodium Chloride 250 ml @ 250 mls/hr ONCE ONCE IV Last administered on 09/08/16 09:01; Start 09/08/16 at 08:30; Stop 09/08/16 at 09:29 ; Status DC Sodium Bicarbonate (Sodium Bicarbonate 8.4% Inj) 50 ml @ As Directed STK-MED ONCE .ROUTE ; Start 09/08/16 at 08:49; Stop 09/08/16 at 08:50; Status DC Sodium Bicarbonate 100 meq 100 meq STAT ONCE IV Last administered on 09:00; Start 09/08/16 at 11:00; Stop 09/08/16 at 11:01; Status DC Norepinephrine Bitartrate/Sodium Chloride (Levophed Inj/NS 250 ml Inj) 250 ml @ 0 mls/hr TITRATE IV Last administered on 09/09/16 17:54; Start 09/08/16 at 13: 00; Stop 09/09/16 at 11:11; Status DC Terbutaline Sulfate 1 mg 1 mg UNSCH PRN SQ For Extravasation; Start 09/08/16 at 13:00; Stop 09/09/16 at 17:47; Status DC Sodium Bicarbonate 150 meq/Sterile Water 1,150 ml @ 150 mls/hr Q7H40M IV Last administered on 09/09/16 05:26; Start 09/08/16 at 15:00; Stop 09/09/16 at 07:47 ; Status DC Sodium Chloride 1,000 ml @ 0 mls/hr BOLUS ONCE IV Last administered on 14:00; Start 09/08/16 at 14:15; Stop 09/08/16 at 14:16; Status DC Sodium Chloride 1,000 ml @ 0 mls/hr BOLUS ONCE IV ; Start 09/08/16 at 14:30; Stop 09/08/16 at 14:31; Status Cancel Sodium Chloride (NS 1000 ml Inj) 1,000 ml @ 999 mls/hr BOLUS ONCE IV Last administered on 09/08/16 18:00; Start 09/08/16 at 18:00; Stop 09/08/16 at 19:00 ; Status DC Lorazepam (Ativan Inj) 2 mg STK-MED ONCE .ROUTE ; Start 09/09/16 at 06:53; Stop 09/09/16 at 06:54; Status DC Lorazepam (Ativan Inj) 4 mg STK-MED ONCE .ROUTE ; Start 09/09/16 at 06:57; Stop 09/09/16 at 06:58; Status DC Phenylephrine HCl (Neosynephrine Inj) 40 mg STK-MED ONCE .ROUTE ; Start at 07:33; Stop 09/09/16 at 07:34; Status DC Phenylephrine HCl 40 mg 40 mg STK-MED ONCE .ROUTE ; Start 09/09/16 at 07:34; Stop 09/09/16 at 07:35; Status DC Fosphenytoin Sodium/Sodium Chloride (Cerebyx Inj/NS Inj) 70 ml @ 280 mls/hr ONCE ONCE IV Last administered on 09/09/16 08:15; Start 09/09/16 at 09:00; Stop 09/09/16 at 09:14; Status DC Fosphenytoin Sodium (Cerebyx Inj) 100 mgpe Q8HR IV Last administered on 23:34; Start 09/09/16 at 14:00; Stop 09/18/16 at 04:56; Status DC Lorazepam 6 mg 6 mg ONCE ONCE IV Last administered on 09/09/16 07:00; Start 09/09/16 at 08:00; Stop 09/09/16 at 08:01; Status DC Phenylephrine HCl/ Dextrose (Neosynephrine Inj/D5W 500 ml Inj) 500 ml @ 0 mls/ hr TITRATE IV ; Start 09/09/16 at 09:45; Stop 09/09/16 at 09:45; Status DC Terbutaline Sulfate 1 mg 1 mg UNSCH PRN SQ FOR EXTRAVASATION PROTOCOL; Start at 09:45; Stop 09/13/16 at 08:38; Status DC Phenylephrine HCl 40 mg/Sodium Chloride 500 ml @ 0 mls/hr TITRATE IV Last administered on 09/09/16 17:55; Start 09/09/16 at 09:45; Stop 09/09/16 at 17:47 ; Status DC Vancomycin HCl 1000 mg/Sodium Chloride 250 ml @ 250 mls/hr ONCE ONCE IV Last administered on 09/09/16 11:23; Start 09/09/16 at 10:45; Stop 09/09/16 at 11:44 ; Status DC Pharmacy Profile Note 0 ml @ 0 mls/hr UNSCH OTHER ; Start 09/09/16 at 10:45; Stop 09/13/16 at 08:39; Status DC Norepinephrine Bitartrate 4 mg/ Sodium Chloride 250 ml @ 0 mls/hr TITRATE IV Last administered on 09/09/16 15:33; Start 09/09/16 at 11:15; Stop 09/09/16 at 17:47; Status DC Vancomycin HCl/ Sodium Chloride (Vancomycin Inj/ NS 250 ml Inj) 250 ml @ 250 mls/hr Q8H IV Last administered on 09/11/16 05:52; Start 09/09/16 at 20:00; Stop 09/11/16 at 12:58; Status DC Miscellaneous Information SPECIFIC LAB TO BE DRAWN:VANCOMYCIN TROUGH DATE TO... ONCE ONCE .XX Last administered on 09/10/16 11:27; Start 09/10/16 at 11:45; Stop 09/10/16 at 11:46; Status DC Sodium Chloride (NS 1000 ml Inj) 1,000 ml @ 999 mls/hr Q1H1M IV Last administered on 09/09/16 11:00; Start 09/09/16 at 11:45; Stop 09/09/16 at 13:45 ; Status DC Gadodiamide 20 ml 20 ml STK-MED ONCE IV Last administered on 09/09/16 16:39; Start 09/09/16 at 16:39; Stop 09/09/16 at 16:40; Status DC Phenylephrine HCl/ Dextrose (Neosynephrine Inj/D5W 500 ml Inj) 500 ml @ 0 mls/ hr TITRATE IV ; Start 09/09/16 at 18:00; Stop 09/09/16 at 18:00; Status DC Terbutaline Sulfate 1 mg 1 mg UNSCH PRN SQ FOR EXTRAVASATION PROTOCOL; Start at 18:00; Stop 09/13/16 at 08:38; Status DC Norepinephrine Bitartrate 16 mg/ Dextrose 250 ml @ 0 mls/hr TITRATE IV ; Start 09/09/16 at 18:00; Stop 09/09/16 at 18:00; Status DC Phenylephrine HCl 160 mg/Sodium Chloride 500 ml @ 0 mls/hr TITRATE IV Last administered on 09/10/16 04:52; Start 09/09/16 at 18:00; Stop 09/11/16 at 11:27 ; Status DC Norepinephrine Bitartrate/Sodium Chloride (Levophed Inj/NS 250 ml Inj) 250 ml @ 0 mls/hr TITRATE IV Last administered on 09/10/16 04:52; Start 09/09/16 at 18: 00; Stop 09/13/16 at 08:39; Status DC Aspirin (Aspirin Chew) 81 mg DAILY CHEW Last administered on 09/13/16 10:09; Start 09/10/16 at 09:00; Status Hold Artificial Tears (Tears Naturale Opth Soln) 1 drop BID EACH EYE Last administered on 09/20/16 09:00; Start 09/10/16 at 21:00 Docusate Sodium (Colace Liq) 100 mg BID PO Last administered on 09/19/16 19:57 ; Start 09/10/16 at 21:00 Midazolam HCl (Versed Inj) 5 mg STK-MED ONCE .ROUTE ; Start 09/10/16 at 09:43; Stop 09/10/16 at 09:44; Status DC Acetaminophen (Tylenol 650 Mg/ 20 ml Liq) 650 mg NOW ONCE PO Last administered on 09/10/16 11:19; Start 09/10/16 at 10:30; Stop 09/10/16 at 10:31 ; Status DC Dextrose (D50w (Syr) Inj) 50 ml STK-MED ONCE .ROUTE ; Start 09/10/16 at 12:49; Stop 09/10/16 at 12:50; Status DC Dextrose (D50w (Syr) Inj) 50 ml NOW ONCE IV PUSH Last administered on 12:45; Start 09/10/16 at 13:30; Stop 09/10/16 at 13:31; Status DC Miscellaneous Information SPECIFIC LAB TO BE DRAWN:VANCOMYCIN TROUGH DATE TO... ONCE ONCE .XX Last administered on 09/11/16 11:45; Start 09/11/16 at 11:45; Stop 09/11/16 at 11:46; Status DC Midazolam HCl (Versed Inj) 3 mg ONCE ONCE IV PUSH Last administered on 09:44; Start 09/10/16 at 14:15; Stop 09/10/16 at 14:16; Status DC Dextrose 50 ml 50 ml NOW ONCE IV PUSH Last administered on 09/10/16 16:09; Start 09/10/16 at 16:00; Stop 09/10/16 at 16:34; Status DC Sodium Chloride (NS 1000 ml Inj) 1,000 ml @ 100 mls/hr Q10H IV Last administered on 09/15/16 13:20; Start 09/11/16 at 12:00; Stop 09/15/16 at 19:09; Status DC Propranolol HCl (Inderal) 20 mg Q8HR PO Last administered on 09/12/16 04:44; Start 09/11/16 at 14:00; Stop 09/12/16 at 17:13; Status DC Magnesium Citrate (Citroma Liq) 300 ml ONCE ONCE NG ; Start 09/12/16 at 09:00; Stop 09/12/16 at 09:01; Status DC Lactulose 30 ml 30 ml QID PO Last administered on 09/14/16 20:02; Start at 09:00 Vancomycin HCl/ Sodium Chloride (Vancomycin Inj/ NS 250 ml Inj) 250 ml @ 250 mls/hr Q12H IV Last administered on 09/12/16 21:29; Start 09/12/16 at 10:00; Stop 09/13/16 at 08:39; Status DC Miscellaneous Information SPECIFIC LAB TO BE CHANDU... ONCE ONCE .XX ; Start at 09:45; Stop 09/14/16 at 09:45; Status DC Furosemide (Lasix Inj) 20 mg ONCE ONCE IV PUSH Last administered on 09/12/16 12:04; Start 09/12/16 at 09:30; Stop 09/12/16 at 09:31; Status DC Mannitol 12.5 gm 12.5 gm Q8H IV Last administered on 09/12/16 15:37; Start at 14:00; Stop 09/12/16 at 21:51; Status DC Sodium Chloride 188 meq/Sodium Chloride 1,047 ml @ 20 mls/hr Q24H IV Last administered on 09/14/16 19:49; Start 09/12/16 at 16:00; Stop 09/16/16 at 15:33; Status DC Norepinephrine Bitartrate (Levophed-Dextrose Drip) 250 ml @ 0 mls/hr TITRATE IV Last administered on 09/16/16 05:37; Start 09/12/16 at 18:00; Stop 09/16/16 at 08:02; Status DC Terbutaline Sulfate (Brethine Inj) 1 mg UNSCH PRN SQ For Extravasation; Start 09/12/16 at 18:00; Stop 09/16/16 at 08:02; Status DC Iohexol (Omnipaque 350 Inj) 30 ml STK-MED ONCE IV Last administered on 21:02; Start 09/12/16 at 21:02; Stop 09/12/16 at 21:03; Status DC Mannitol (Mannitol Inj) 12.5 gm Q8H IV Last administered on 09/16/16 06:56; Start 09/12/16 at 23:00; Stop 09/17/16 at 04:13; Status DC Potassium Bicarb/ Potassium Chloride (K-Lyte Cl Eff) 25 meq DAILY PO Last administered on 09/18/16 08:41; Start 09/13/16 at 09:00 Magnesium Citrate (Citroma Liq) 300 ml ONCE ONCE PO ; Start 09/13/16 at 08:30; Stop 09/13/16 at 08:41; Status DC Bisacodyl (Dulcolax Supp) 10 mg DAILY RECTAL Last administered on 09/13/16 10: 09; Start 09/13/16 at 09:00 Oxycodone HCl (Roxicodone) 5 mg Q6H OG-TUBE Last administered on 09/20/16 00:54 ; Start 09/14/16 at 20:00 Fentanyl Citrate (fentaNYL INJ) 100 mcg ONCE ONCE IV PUSH ; Start 09/14/16 at 20 :00; Stop 09/14/16 at 20:01; Status DC Fentanyl Citrate (fentaNYL INJ) 50 mcg Q1H PRN IV PUSH PAIN, ICP >20 Last administered on 09/20/16 14:41; Start 09/14/16 at 19:00 Acetaminophen 650 mg 650 mg Q4H PRN PO FEVER Last administered on 09/19/16 10: 21; Start 09/15/16 at 20:30 Norepinephrine Bitartrate/Sodium Chloride (Levophed Inj/NS 250 ml Inj) 250 ml @ 0 mls/hr TITRATE IV Last administered on 09/16/16 09:11; Start 09/16/16 at 08:15 ; Stop 09/16/16 at 15:33; Status DC Terbutaline Sulfate (Brethine Inj) 1 mg UNSCH PRN SQ For Extravasation; Start 09/16/16 at 08:15; Stop 09/17/16 at 13:35; Status DC Pantoprazole Sodium (Protonix) 40 mg DAILY PO ; Start 09/18/16 at 09:00 Furosemide (Lasix Inj) 20 mg ONCE ONCE IV PUSH Last administered on 09/17/16 14:30; Start 09/17/16 at 13:30; Stop 09/17/16 at 13:42; Status DC Cisatracurium Besylate (Nimbex Inj) 20 mg ONCE ONCE IV Last administered on 14:30; Start 09/17/16 at 13:30; Stop 09/17/16 at 13:43; Status DC Midazolam HCl (Versed Inj) 10 mg ONCE ONCE IV PUSH Last administered on 14:53; Start 09/17/16 at 13:30; Stop 09/17/16 at 13:44; Status DC Fentanyl Citrate 250 mcg 250 mcg ONCE ONCE IV PUSH Last administered on 13:30; Start 09/17/16 at 13:30; Stop 09/17/16 at 13:42; Status DC Cefazolin Sodium/ Sodium Chloride (Ancef Inj/NS Inj) 100 ml @ 200 mls/hr [employer] IV ; Start 09/20/16 at 16:00; Stop 09/23/16 at 15:59 Clonazepam (KlonoPIN) 1 mg Q8H PO Last administered on 09/20/16 00:54; Start at 18:00 Lorazepam (Ativan Inj) 3 mg NOW IV Last administered on 09/18/16 04:04; Start 09/18/16 at 04:00; Stop 09/18/16 at 05:20; Status DC Acetaminophen (Ofirmev Inj) 1,000 mg NOW IV Last administered on 09/18/16 04:03 ; Start 09/18/16 at 04:00; Stop 09/18/16 at 05:20; Status DC Ibuprofen 600 mg 600 mg Q6H PRN PO fever >100.5 Last administered on 09/18/16 20:48; Start 09/18/16 at 04:15; Stop 09/18/16 at 20:55; Status DC Levetriacetam 100 ml @ 400 mls/hr Q12HR IV Last administered on 09/20/16 07:45 ; Start 09/18/16 at 09:00 Cefepime HCl 2000 mg/Sodium Chloride 100 ml @ 200 mls/hr Q8H IV ; Start at 05:00; Stop 09/18/16 at 05:18; Status DC Vancomycin HCl/ Sodium Chloride (Vancomycin Inj/ NS 250 ml Inj) 250 ml @ 250 mls/hr ONCE ONCE IV Last administered on 09/18/16 08:40; Start 09/18/16 at 05: 00; Stop 09/18/16 at 05:59; Status DC Lorazepam 3 mg 3 mg NOW IV Last administered on 09/18/16 05:19; Start 09/18/16 at 05:30; Stop 09/18/16 at 06:30; Status DC Cefepime HCl/ Sodium Chloride (Maxipime Inj/NS Inj) 100 ml @ 200 mls/hr Q8H IV Last administered on 09/20/16 13:25; Start 09/18/16 at 06:00 Fondaparinux (Arixtra Inj) 7.5 mg Q24H SQ Last administered on 09/20/16 06:04; Start 09/18/16 at 06:00 Propranolol HCl 20 mg 20 mg Q6HR PO Last administered on 09/19/16 23:57; Start 09/18/16 at 06:45 Sodium Chloride/ Sodium Chloride (Sodium Chloride 23.4% Inj/NS 1000 ml Inj) 1, 047 ml @ 20 mls/hr Q24H IV Last administered on 09/18/16 19:50; Start 09/18/16 at 20:00; Stop 09/19/16 at 07:57; Status DC Ibuprofen (Motrin Liq) 600 mg Q6H PRN PO FEVER > 100.5 Last administered on 09/19 14:20; Start 09/18/16 at 21:00 Sodium Chloride (Sodium Chloride) 3 gm Q8H PO Last administered on 09/19/16 23: 57; Start 09/19/16 at 08:00 Acetaminophen (Ofirmev Inj) 1,000 mg UNSCH X1 IV Last administered on 22:52; Start 09/19/16 at 22:15; Stop 09/19/16 at 23:45; Status DC Medical Decision Making MDM Remarks Last Impressions Liver Ultrasound 09/18/16 Signed Impressions: Service Date/Time: Sunday, September 18, 2016 09:27 - CONCLUSION: 1. There is sludge within the gallbladder. No other findings are present to indicate acute cholecystitis. 2. Mild splenomegaly. Miller Lee MD Chest X-Ray 09/18/16 Signed Impressions: Service Date/Time: Sunday, September 18, 2016 05:01 - CONCLUSION: 1. Right perihilar edema versus pneumonia. There has been no significant change when compared to the prior exam. 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 This is nonocclusive. A retrievable IVC filter was deployed below the main hepatic veins but it was necessary to cross an accessory right hepatic vein. Jose Armando Jackson Jr., MD Head CT 09/12/16 0000 Signed Impressions: Service Date/Time: Monday, September 12, 2016 09:29 - CONCLUSION: Mild loss of lemos matter definition that can be seen with increasing intracranial pressure. Ricki Cavazos MD FACR Neck Magnetic Resonance Angiography 09/09/16 0000 Signed Impressions: Service Date/Time: August 16:02 - CONCLUSION: 1. Moderate to severe smooth narrowing of the left common carotid artery and also moderate narrowing of the proximal right common carotid artery as well as narrowing of both proximal vertebral arteries likely related to recent hanging. Etiology could be related to vasospasm or recent extrinsic prolonged compression. The distal internal carotid arteries and vertebral artery have more normal calibers. Findings called to Dr. Bhatt at the time of dictation. Gideon Brown MD Cervical Spine MRI 09/09/16 0000 Signed Impressions: Service Date/Time: August 16:02 - CONCLUSION: 1. Very minimal degenerative disc disease at C5-6. 2. No acute fracture or prevertebral soft tissue swelling. 3. No focal cervical cord abnormality. Tray Santiago MD Brain MRI 09/09/16 0000 Signed Impressions: Service Date/Time: August 16:02 - CONCLUSION: 1. Diffuse FLAIR-weighted hyperintensities involving the caudate nuclei bilaterally, bilateral hummel radiata, as well as the bilateral parietal and occipital cortex consistent with the patient's clinical diagnosis of anoxic encephalopathy. 2. No acute hemorrhage, midline shift, extra-axial fluid collection or abnormal enhancement. 3. Small fluid level within the right sphenoid sinus. Tray Santiago MD Cervical Spine CT 09/07/16 1800 Signed Impressions: Service Date/Time: Wednesday, September 07, 2016 18:06 - CONCLUSION: 1. No fracture or subluxation. 2. Scattered groundglass nodules throughout the upper lobes, nonspecific but can be seen with hypersensitivity pneumonitis. Artem Madera MD Last Impressions Liver Ultrasound 09/12/16 0000 Signed Impressions: Service Date/Time: Monday, September 12, 2016 16:15 - CONCLUSION: 1. 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 2. Pericholecystic fluid and gallbladder wall thickening raising the possibility of cholecystitis. A hepatobiliary scan may be helpful to confirm cystic duct obstruction if clinically indicated. 3. Gallbladder sludge. 4. Ascites. 5. Bilateral pleural effusions. 6. Mild hepatomegaly. 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 This is nonocclusive. A retrievable IVC filter was deployed below the main hepatic veins but it was necessary to cross an accessory right hepatic vein. Jose Armando Jackson Jr., MD Head CT 09/12/16 0000 Signed Impressions: Service Date/Time: Monday, September 12, 2016 09:29 - CONCLUSION: Mild loss of lemos matter definition that can be seen with increasing intracranial pressure. Ricki Cavazos MD FACR Neck Magnetic Resonance Angiography 09/09/16 0000 Signed Impressions: Service Date/Time: August 16:02 - CONCLUSION: 1. Moderate to severe smooth narrowing of the left common carotid artery and also moderate narrowing of the proximal right common carotid artery as well as narrowing of both proximal vertebral arteries likely related to recent hanging. Etiology could be related to vasospasm or recent extrinsic prolonged compression. The distal internal carotid arteries and vertebral artery have more normal calibers. Findings called to Dr. Bhatt at the time of dictation. Gideon Brown MD Cervical Spine MRI 09/09/16 0000 Signed Impressions: Service Date/Time: August 16:02 - CONCLUSION: 1. Very minimal degenerative disc disease at C5-6. 2. No acute fracture or prevertebral soft tissue swelling. 3. No focal cervical cord abnormality. Tray Santiago MD Brain MRI 09/09/16 0000 Signed Impressions: Service Date/Time: August 16:02 - CONCLUSION: 1. Diffuse FLAIR-weighted hyperintensities involving the caudate nuclei bilaterally, bilateral hummel radiata, as well as the bilateral parietal and occipital cortex consistent with the patient's clinical diagnosis of anoxic encephalopathy. 2. No acute hemorrhage, midline shift, extra-axial fluid collection or abnormal enhancement. 3. Small fluid level within the right sphenoid sinus. Tray Santiago MD Cervical Spine CT 09/07/16 1800 Signed Impressions: Service Date/Time: Wednesday, September 07, 2016 18:06 - CONCLUSION: 1. No fracture or subluxation. 2. Scattered groundglass nodules throughout the upper lobes, nonspecific but can be seen with hypersensitivity pneumonitis. Artem Madera MD Last Impressions Chest X-Ray 09/13/16 0600 Signed Impressions: Service Date/Time: Tuesday, September 13, 2016 04:49 - CONCLUSION: 1. Hazy opacity in both lungs without significant change. This may represent pulmonary edema which may be noncardiogenic. 2. Artifact projected over the right suprahilar region limiting visualization. Seth Breen MD Liver Ultrasound 09/12/16 0000 Signed Impressions: Service Date/Time: Monday, September 12, 2016 16:15 - CONCLUSION: 1. 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 2. Pericholecystic fluid and gallbladder wall thickening raising the possibility of cholecystitis. A hepatobiliary scan may be helpful to confirm cystic duct obstruction if clinically indicated. 3. Gallbladder sludge. 4. Ascites. 5. Bilateral pleural effusions. 6. Mild hepatomegaly. 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 This is nonocclusive. A retrievable IVC filter was deployed below the main hepatic veins but it was necessary to cross an accessory right hepatic vein. Jose Armando Jackson Jr., MD Head CT 09/12/16 0000 Signed Impressions: Service Date/Time: Monday, September 12, 2016 09:29 - CONCLUSION: Mild loss of lemos matter definition that can be seen with increasing intracranial pressure. Ricki Cavazos MD FACR Neck Magnetic Resonance Angiography 09/09/16 0000 Signed Impressions: Service Date/Time: August 16:02 - CONCLUSION: 1. Moderate to severe smooth narrowing of the left common carotid artery and also moderate narrowing of the proximal right common carotid artery as well as narrowing of both proximal vertebral arteries likely related to recent hanging. Etiology could be related to vasospasm or recent extrinsic prolonged compression. The distal internal carotid arteries and vertebral artery have more normal calibers. Findings called to Dr. Bhatt at the time of dictation. Gideon Brown MD Cervical Spine MRI 09/09/16 0000 Signed Impressions: Service Date/Time: August 16:02 - CONCLUSION: 1. Very minimal degenerative disc disease at C5-6. 2. No acute fracture or prevertebral soft tissue swelling. 3. No focal cervical cord abnormality. Tray Santiago MD Brain MRI 09/09/16 0000 Signed Impressions: Service Date/Time: August 16:02 - CONCLUSION: 1. Diffuse FLAIR-weighted hyperintensities involving the caudate nuclei bilaterally, bilateral hummel radiata, as well as the bilateral parietal and occipital cortex consistent with the patient's clinical diagnosis of anoxic encephalopathy. 2. No acute hemorrhage, midline shift, extra-axial fluid collection or abnormal enhancement. 3. Small fluid level within the right sphenoid sinus. Tray Santiago MD Cervical Spine CT 09/07/16 1800 Signed Impressions: Service Date/Time: Wednesday, September 07, 2016 18:06 - CONCLUSION: 1. No fracture or subluxation. 2. Scattered groundglass nodules throughout the upper lobes, nonspecific but can be seen with hypersensitivity pneumonitis. Artem Madera MD Last Impressions Chest X-Ray 09/13/16 0600 Signed Impressions: Service Date/Time: Tuesday, September 13, 2016 04:49 - CONCLUSION: 1. Hazy opacity in both lungs without significant change. This may represent pulmonary edema which may be noncardiogenic. 2. Artifact projected over the right suprahilar region limiting visualization. Seth Breen MD Liver Ultrasound 09/12/16 0000 Signed Impressions: Service Date/Time: Monday, September 12, 2016 16:15 - CONCLUSION: 1. 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 2. Pericholecystic fluid and gallbladder wall thickening raising the possibility of cholecystitis. A hepatobiliary scan may be helpful to confirm cystic duct obstruction if clinically indicated. 3. Gallbladder sludge. 4. Ascites. 5. Bilateral pleural effusions. 6. Mild hepatomegaly. 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 This is nonocclusive. A retrievable IVC filter was deployed below the main hepatic veins but it was necessary to cross an accessory right hepatic vein. Jose Armando Jackson Jr., MD Head CT 09/12/16 0000 Signed Impressions: Service Date/Time: Monday, September 12, 2016 09:29 - CONCLUSION: Mild loss of lemos matter definition that can be seen with increasing intracranial pressure. Ricki Cavazos MD FACR Neck Magnetic Resonance Angiography 09/09/16 0000 Signed Impressions: Service Date/Time: August 16:02 - CONCLUSION: 1. Moderate to severe smooth narrowing of the left common carotid artery and also moderate narrowing of the proximal right common carotid artery as well as narrowing of both proximal vertebral arteries likely related to recent hanging. Etiology could be related to vasospasm or recent extrinsic prolonged compression. The distal internal carotid arteries and vertebral artery have more normal calibers. Findings called to Dr. Bhatt at the time of dictation. Gideon Brown MD Cervical Spine MRI 09/09/16 0000 Signed Impressions: Service Date/Time: August 16:02 - CONCLUSION: 1. Very minimal degenerative disc disease at C5-6. 2. No acute fracture or prevertebral soft tissue swelling. 3. No focal cervical cord abnormality. Tray Santiago MD Brain MRI 09/09/16 0000 Signed Impressions: Service Date/Time: August 16:02 - CONCLUSION: 1. Diffuse FLAIR-weighted hyperintensities involving the caudate nuclei bilaterally, bilateral hummel radiata, as well as the bilateral parietal and occipital cortex consistent with the patient's clinical diagnosis of anoxic encephalopathy. 2. No acute hemorrhage, midline shift, extra-axial fluid collection or abnormal enhancement. 3. Small fluid level within the right sphenoid sinus. Tray Santiago MD Cervical Spine CT 09/07/16 1800 Signed Impressions: Service Date/Time: Wednesday, September 07, 2016 18:06 - CONCLUSION: 1. No fracture or subluxation. 2. Scattered groundglass nodules throughout the upper lobes, nonspecific but can be seen with hypersensitivity pneumonitis. Artem Madera MD Attending Statement Neuro. Continue neuro checks. Anoxic encephalopathy. Pulmonary. Continue mechanical ventilation. Unable to wean. Continue aggressive pulmonary toilette, nasotracheal suction, and breathing treatments with nebulizers. Nutrition. NPO. For PEG today Renal. Continue to monitor closely urine output, BUN and creatinine Endocrine. Continue to Monitor serial Acu checks and SSI as needed in detail ID. continue IV antibiotics for staph aereus. Leukopenia, resolved Thrombocytopenia consumptive-resovled IVC filter placed 09/12 due to inability to anticoagulate Continue Protonix for stress ulcer prophylaxis Continue [place] hose and SCD's for DVT prophylaxis Jomar José MD Sep 20, 2016 15:20
--- NOTE | 2016-09-20 15:38 | HHI.GIFU ---
Subjective Remarks EGD performed and PEG tube placed. Objective Vitals I&O Vital Signs Date Time Temp Pulse Resp B/P Pulse Ox O2 Delivery O2 Flow Rate FiO2 09/20/16 14:00 115 09/20/16 12:00 115 09/20/16 12:00 99.2 09/20/16 12:00 100.0 115 23 122/69 96 09/20/16 12:00 40 09/20/16 11:29 99 40 09/20/16 10:00 114 09/20/16 08:47 98 40 09/20/16 08:00 99.2 115 24 142/80 94 09/20/16 08:00 99.2 09/20/16 08:00 40 09/20/16 08:00 115 09/20/16 06:00 110 09/20/16 06:00 40 09/20/16 04:41 99 40 09/20/16 04:00 40 09/20/16 04:00 104 09/20/16 04:00 99.0 09/20/16 04:00 99.0 104 18 125/75 96 09/20/16 02:00 102 09/20/16 01:14 95 40 09/20/16 00:00 40 09/20/16 00:00 114 09/20/16 00:00 100.7 114 20 125/59 95 09/19/16 22:00 130 09/19/16 21:00 103.0 09/19/16 20:34 100 40 09/19/16 20:00 40 09/19/16 20:00 101.7 110 14 135/78 95 09/19/16 20:00 101.7 09/19/16 20:00 110 09/19/16 18:00 87 09/19/16 16:10 95 40 09/19/16 16:00 40 09/19/16 16:00 98.4 09/19/16 16:00 87 09/19/16 16:00 98.4 87 14 113/74 94 I/O 09/19/16 09/19/16 09/19/16 09/20/16 09/20/16 09/20/16 06:59 14:59 22:59 06:59 14:59 22:59 Intake Total 303 ml 446 ml 676 ml 340 ml 395 ml Balance 303 ml 446 ml 676 ml 340 ml 395 ml Intake IV Total 265 ml 283 ml 297 ml 340 ml 395 ml Tube Feeding 38 ml 163 ml 259 ml Other 120 ml # Voids 2 4 2 3 4 # Bowel Movements 1 2 1 # Sanitary Pads 0 Pads 0 Pads 0 Pads 0 Pads 0 Pads 0 Pads 0 Pads 0 Pads 0 Pads 0 Pads 0 Pads 0 Pads 0 Pads 0 Pads Laboratory Laboratory Tests Test 09/20/16 11:00 White Blood Count 10.2 Red Blood Count 3.46 Hemoglobin 9.7 Hematocrit 28.1 Mean Corpuscular Volume 81.3 Mean Corpuscular Hemoglobin 28.1 Mean Corpuscular Hemoglobin 34.6 Concent Red Cell Distribution Width 14.7 Platelet Count 359 Mean Platelet Volume 7.4 Sodium Level 138 Potassium Level 3.8 Chloride Level 102 Carbon Dioxide Level 27.3 Anion Gap 9 Blood Urea Nitrogen 13 Creatinine 0.46 Estimat Glomerular Filtration 175 Rate Random Glucose 87 Calcium Level 8.4 Date/Time Procedure Status Source Growth 09/17/16 07:23 Aerobic Blood Culture - Preliminary Resulted Blood Peripheral NO GROWTH IN 3 DAYS 09/17/16 07:23 Anaerobic Blood Culture - Preliminary Resulted Blood Peripheral NO GROWTH IN 3 DAYS 09/17/16 06:15 Gram Stain - Final Complete Sputum Endotracheal 09/17/16 06:15 Sputum Culture - Final Complete Staphylococcus Aureus Physical Exam HEENT: Pupils round and reactive to light; normocephalic; atraumatic; no jaundice. Throat is clear. NECK: Neck is supple, Trach tube present CHEST: Chest is clear to auscultation and percussion. CARDIAC: Regular rate and rhythm with no murmur gallop or rubs. ABDOMEN: Soft, nondistended, nontender; no hepatosplenomegaly; bowel sounds are present in all four quadrants. EXTREMITIES: No clubbing, cyanosis, or edema. SKIN: Normal; no rash; no jaundice. [employer]: In coma Assessment and Plan Plan ASSESSMENT - dysphagia - need for usp mechanical ventilation, s/p trach. GI consulted for PEG placement - severe anoxic brain injury, acute hypoxemic respiratory failure, per [facility] EGD normal. PEG tube placed. PLAN - OK tu use tube for meds and water. Tomorrow OK to use tube for feedings. Jasbir Mobley MD Sep 20, 2016 15:38
[2016-09-21] VITALS (17 sets, daily range): BP systolic 117–161; BP diastolic 64–89; PULSE 91–120; RESP 19–30; TEMP 97.6–99.9; O2SAT 93–100
[2016-09-21] MEDS: SODIUM CHLORIDE 1 GRAM TAB PO SCH ×4 (00:35→23:31)
[2016-09-21] MEDS: PROPRANOLOL HCL 20 MG TAB PO SCH ×5 (00:35→23:33)
[2016-09-21] MEDS: CEFEPIME INJ 2,000 MG in SODIUM CHLORIDE 0.9% INJ 100 ML IV SCH ×2 (01:25→05:57)
[2016-09-21] MEDS: CHLORHEXIDINE GLUCONATE 2 % 1 PACK (2 CLOTHS) TOP SCH ×2 (04:00→20:51)
[2016-09-21 05:04] LABS: HEMATOCRIT 31.6 % (35.0-46.0); MEAN CELL VOLUME 82.2 FL (80.0-100.0); MEAN CORPUSCULAR HEMOGLOBIN 27.3 PG (27.0-34.0); MEAN CORPUSCULAR HGB CONC 33.2 % (32.0-36.0); PLATELET COUNT 467 TH/MM3 (150-450); RED BLOOD COUNT 3.84 MIL/MM3 (4.00-5.30); RED CELL DISTRIBUTION WIDTH 14.8 % (11.6-17.2); REVIEW FLAG FINAL; WHITE BLOOD COUNT 8.5 TH/MM3 (4.0-11.0)
[2016-09-21 05:38] LABS: BICARBONATE 24.7 MEQ/L (21.0-32.0)
[2016-09-21] MEDS: clonazePAM 1 MG TAB PO SCH ×3 (06:02→17:47)
[2016-09-21] MEDS: FONDAPARINUX SODIUM 7.5 MG/0.6 ML SYRINGE SQ SCH (06:03)
[2016-09-21] MEDS: levETIRAcetam 1000 MG INJ 100 ML IV SCH ×2 (07:54→21:03)
[2016-09-21] MEDS: LORazepam 2 MG/ML VIAL IV PRN ×5 (07:54→23:32)
--- NOTE | 2016-09-21 08:09 | HHI.CCPN ---
Subjective Remarks/Hospital Course 19 years old was brought in as a trauma alert. He has had to hanged herself and was found by her roommate. Unknown time of hanging. When fire department arrived patient was in asystole. CPR was started and one round of meds were given as per ACLS protocol. There was return of spontaneous circulation soon after that. Patient was brought in getting breaths by BV. She had a blood pressure and half way to arriving to the ER she started having some spontaneous respirations. She continued to be a GCS 3 when she arrived. She is admitted to critical care unit and therapeutic hypothermia protocol is initiated. SUBJ 09/08/16: Patient achieving target temperature but developing severe shock. Levothroid had been increased to 30 mcg/m Mehdi-Synephrine added. Additional fluid boluses ordered currently on bicarbonate infusion additional one amp of bicarbonate given. Chest x-ray shows severe aspiration pneumonitis predominantly right lower lobe infiltrates. Zosyn 4.5 GM IV q8 started, give single dose of vanc 09/09/16: Patient is in the rewarming phase of hypothermia protocol. Once sedation was lightened and taken off the Nimbex, patient started developing tonic-clonic generalized seizure like activity. Bolused with a total of 6 mg Ativan in divided doses and restarted on Versed and propofol infusions. Loaded with Cerebyx 1 g and scheduled at 100 mg every 8 hours. Stat EEG pending. Neurology following 09/10/16: Remains on high dose of vasopressors, MRI brain shows evidence of anoxic brain injury. MRA neck bilateral common carotid narrowing. Start on aspirin get vascular surgery consult. No further seizure-like episodes noted. Pupils are equal bilaterally with slight withdrawal of right lower extremity to central pain. 09/11/16: Currently remains off all sedation in process. No noticeable improvement in neuro status, slight withdrawal x4. Aspirin started for bilateral common carotid narrowing-vascular surgery consult appreciated. Continue Cerebyx EEG sharp activity on eeg. MRI indicates diffuse anoxic brain injury with poor prognosis. EEG bihemispheric slowing and intermittent right central posterior sharp discharges which appear to be epileptiform. Dilantin level is therapeutic 09/12/16: Overnight had episodes myoclonus versus seizures. Neuro exam remains poor. No significant improvement. Low grade fever. Remains tachypneic on the ventilator. Restart propofol for vent synchrony 09/13/16: Neuro exam remains unchanged overnight. ICP monitor placed 09/12 for cerebral edema- ICP controlled with hyperosmolar therapy. 2 episodes of seizures vs myoclonus reported. Repeat EEG today. IVC filter placed 09/12/16 evening for large IVC thrombus. Unable to anticoagulate due to thrombocytopenia , cerebral edema-high risk of bleeding 09/14 EEG yesterday showed severe encephalopathy. ICP mainly 10-13 but intermittently spiked up to max of 22, improved with propofol bolus. Myoclonus noted with any tactile stimulation. 09/15 Comatose with myoclonus. ICP intermittently increased to 20, sometimes drifts down without intervention, sometimes improves with sedation. Extensor posturing. 09/16 Off continuous sedation. Comatose with myoclonus. Corneal reflex present on left, absent on right. ICP monitor removed today per NSG. 09/17: no significant neurologic improvement. off sedation. only intermittent ativan for myoclonus which improves symptoms. family meeting today, and family requests aggressive care, including trach/peg. 09/18: No change in neuro exam. Continued to spike high temperatures up to 102.5. CBC pending. I will discontinue Cerebyx start Keppra, check gallbladder ultrasound again and placed on empiric cefepime and single dose of vancomycin. Sputum culture Gram stain shows few GPC. On cooling blanket, and Tylenol. Motrin added. s/p Trach yesterday 09/19: no improvements or changes. sodium trending down. repeat sputum culture 09/17 growing staph aureus. KP pending. 09/20: No change in neuro exam. Overnight spike fever 103 again. Patient has bloody secretion from bilateral nares-she may have some acute sinusitis. Continue broad-spectrum antibiotics. Discontinue NG tube as the patient is getting PEG today Subjective: 09/21: PEG yesterday. no changes. sputum again growing MSSA. Objective Vital Signs Date Time Temp Pulse Resp B/P Pulse Ox O2 Delivery O2 Flow Rate FiO2 09/21/16 06:00 106 09/21/16 04:20 100 40 09/21/16 04:00 99.9 21 146/64 09/19/16 10:28 T-piece 6.00 Intake and Output 09/20/16 09/20/16 09/21/16 08:00 16:00 00:00 Intake Total 340 ml 395 ml 166 ml Balance 340 ml 395 ml 166 ml Result Diagram: 09/21/16 0352 09/21/16 0352 Imaging Last [address] 09/07/16 1800 Signed Impressions: Service Date/Time: Wednesday, September 07, 2016 18:06 - CONCLUSION: Normal examination. Artem Madera MD Chest X-Ray 09/07/16 1800 Signed Impressions: Service Date/Time: Wednesday, September 07, 2016 17:49 - CONCLUSION: Subtle densities in the upper lobes. Otherwise unremarkable chest. Artem Madera MD ADDENDUM: See above. Artem Madera MD Cervical Spine CT 09/07/16 1800 Signed Impressions: Service Date/Time: Wednesday, September 07, 2016 18:06 - CONCLUSION: 1. No fracture or subluxation. 2. Scattered groundglass nodules throughout the upper lobes, nonspecific but can be seen with hypersensitivity pneumonitis. Artem Madera MD Objective Remarks GENERAL: young female, lying in bed. trached Comatose SKIN: Warm and dry. HEAD: Normocephalic. Pupils are 4 mm reactive to 3 mm bilaterally. EYES: No scleral icterus. No injection or drainage. NECK: trachea midline. No JVD. trach in place. CARDIOVASCULAR: Tachycardic rhythm. No murmurs. RESPIRATORY: unlabored. equal chest rise. GASTROINTESTINAL: Abdomen soft, non-tender, distended. MUSCULOSKELETAL: No cyanosis, 1+ edema. NEURO: trached. off sedation except intermittent ativan/fentanyl. Pupils are 4 mm reactive to 3 mm bilaterally. Slight corneal reflex present on the left, absent on the right. No cough or gag. Disconjugate gaze. No spontaneous eye opening. General myoclonic movements on stimulation. To deep central and peripheral noxious stimuli patient showing extensor posturing A/P Assessment and Plan Assessment: 20yF s/p hanging event and s/p cardiac arrest with severe anoxic injury. family continues to want aggressive care. Status post tracheostomy , PEG 09/20. will work towards weaning to trach collar as tolerated. narrow spectrum of abx from cefepime to ancef for MSSA recurrent in the sputum. A/P NEURO: Severe anoxic brain injury Bilateral common carotid narrowing Attempted suicide by hanging Seizure Depression - MRI shows evidence of diffuse anoxic brain injury. MRA neck bilateral common carotid narrowing-vascular surgery consulted, no intervention. started aspirin - CT 09/12-loss salguero/white matter differentiation c/w cerebral edema. ICP monitor placed 09/12 , removed 09/16. - EEG 09/10 bilateral sharp activity, on Dilantin. Level therapeutic 09/12. DC Dilantin 09/18/16 due high fever, started Keppra - EEG 09/11 Encephalopathy, no sz. - EEG 09/13severe encephalopathy. (delta waves) - s/p induced hypothermia. - Neurology Dr. Wong following. He states prognosis is poor and recommended comfort measures. - NSG Dr. José states poor prognosis, recommends comfort care. - Toxicology negative - Ativan for symptomatic control for severe myoclonus. - Oxycodone for pain. Fentanyl prn CV: Shock resolved Status postcardiac arrest - Off Levophed which was used to maintain CPP Resp: Acute hypoxemic respiratory failure Pre-hospital Aspiration pneumonitis Acute lung injury - Intubated for hypoxemic respiratory failure from pre hospital aspiration - PRVC, ventilator bundle. DuoNeb every 6 hours and when necessary - Daily SBTs - Patient has evidence of aspiration on admission as indicated by right lower lobe infiltrate - s/p trach 09/17/16. Vijay Jackson and Kunal - daily trach collar trials. will attempt to wean fio2 < 28% in order to facilitate placement. GI: Transaminitis most likely from shock, resolved. Hyponatremia - Tube feedings Jevity 1.5 at 50 L per hour per nutrition recommendations. - s/p PEG 09/20 - repeat GB u/s without signs of cholecystitis 09/18 - Continue salt tabs 3gm po q8hr. - Had bowel and after mag citrate was given. - Liver ultrasound 09/12large nonocclusive thrombus and IVC. Renal: Acute kidney injury- resolved. Fluid overload- persistent. - monitor BUN/creatinine - anton removed and voiding on own. ID: Septic, neurogenic shock-resolved Aspiration pneumonia, prehospital High fever Sputum with MSSA 09/08. - Zosyn 4.5 g IV every 6 hours 09/08-09/15 .fever may be secondary to DVT. Off vancomycin. - Fever up to 103 GPC on sputum MSSA. Vancomycin 1 g IV 1. - sputum culture 09/17 staph aureus. de-escalate to Ancef 2gm iv q8h, total 10 day course of abx for recurrent MSSA pna. Endo: - Electrolyte replacement per protocol - Sliding-scale insulin if needed HEME: Leukopenia, resolved Thrombocytopenia consumptive-resovled Large IVC thrombus - Monitor CBC CMP coags. - IVC filter placed 09/12 due to inability to anticoagulate (thrombocytopenia) and cerebral edema - This was discussed with hematology Dr. Kwok and neurologist surgeon Dr. Davenport - Now platelets improved, Arixtra 7.5 mg daily from 09/18/16. 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 KP pending. given how difficult lab draws are for patient, would prefer Lovenox as opposed to coumadin, so will leave on Arixtra until KP comes back. may be forced to coumadinize. DVT GI prophylaxis - IVC filter in place. Continue po ppi.Arixtra started 09/18/16 Lines: - Right femoral cooling catheter and right brachial arterial line placed by Dr. England-DC both. L subclavian central line 09/10/16 -09/17 Findings of status myoclonus, persistent coma with extensor posturing vs absent motor response are consistent with poor prognosis for functional neurologic recovery. MRI demonstrates evidence of anoxic injury. Discussed with family poor prognosis and would expect her to require trach/PEG and be dependent for ADL in nursing facility. 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 She states that she "already had suffered plenty from her depression and psychological demons". However, after full and detailed conversation with Dr. Bragg and the palliative care team, they now want to pursue tracheostomy/PEG tube placement, and give her at least a few more weeks to attempt to improve. Congruent with family wishes, trach placed on 09/17/16. PEG 09/20. CM to look for placement Lizandro Barry MD Sep 21, 2016 08:09
[2016-09-21] MEDS: ceFAZolin 2 GM PREMIX 50 ML IV SCH ×3 (08:54→23:32)
[2016-09-21] MEDS: PANTOPRAZOLE SOD 40 MG DELAYED RELEASE TAB PO SCH (09:00)
[2016-09-21] MEDS: LACTULOSE SYRUP 20 GM/30 ML CUP PO SCH ×4 (09:00→21:00)
[2016-09-21] MEDS: DOCUSATE SODIUM 100 MG/10 ML UDC PO SCH ×2 (09:00→21:00)
[2016-09-21] MEDS: ARTIFICIAL TEARS OPTH SOLN 15 ML BTL EACH EYE SCH ×2 (09:00→21:00)
[2016-09-21] MEDS: POTASSIUM CHLORIDE 25 MEQ EFFERVESCENT TAB PO SCH (09:00)
[2016-09-21] MEDS: BISACODYL 10 MG SUPP RECTAL SCH (09:00)
--- NOTE | 2016-09-21 12:00 | HHI.HCPN ---
Reason for visit a. To assist with evaluation and management of symptoms including: Dyspnea , possible pain; encephalopathy; myoclonus b. To assist medical decision maker(s) with: better understanding of current medical conditions; weighing benefits/burdens of medical treatment options; making medical treatment decisions. . . Subjective/Interval History No significant neurological change. Patient tolerating hytus-zt-[id number]-tube at time of my visit. PEG tube placed uneventfully on 09/20/16. EGD negative at the time. 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 Family believes myoclonus has become less intense. Myoclonus is often triggered by stimulation. Tmax 100.0 at 21:00 last night. HR 96 - 120. BP 122-147/ 69-88. Pulse ox 94 -100 on 40% FI02. Voiding . Bowels moving. Tolerating tube feeds. WBC 8.5 ; Hg 10.5; Platelets up to 467 No new culture results -- Sputum from 09/17 + for Staph aureus No new imaging. . Family/friend interactions Met with patient's mother and grandmother for approximately 45 minutes in consult room. Palliative care MANAGER STRATEGIC MARKETING (Pavithra Finley) and Palliative Care composite bond worker (Pauline Jackson) were present. * Reviewed current status including recent PEG, success of CPAP trial, culture results. * Family again emphasized their desire to kept informed even about minor things. They had not been told about CPAP trials and were surprised when she was off the vent then back on the vent again. * Discussed ongoing need for trach to protect airway even after she no longer needs vent support. * Discussed how patients are normally transferred out of the acute care setting to another facility once trach/PEG is accomplished and infections are treated. * Discussed spiritual issues and spiritual support. Family is supported by Rabbi Starr in [place]. He has told the family to "wait a month" before considering withdrawal from life support. * Mother wants to know if ultimately she would meet resistance to withdrawal of life support in this state if/when she decides that such withdrawal would be the best way of honoring her daughter's wishes. * Mother was concerned about difficulty with blood draws and was wondering about a PICC line -- offered to discus this with the medical team. * Mother wanted resources to read about coma. Offered to get information through Dr. Manuel. * Answered all questions. . Advance Directives Living Will: Never completed Health Care Surrogate: Never completed Durable Power of Usability Strategist: Never completed Objective Vital Signs Date Time Temp Pulse Resp B/P Pulse Ox O2 Delivery O2 Flow Rate FiO2 09/21/16 10:00 115 09/21/16 08:15 95 T-piece 7.00 40 09/21/16 08:00 98.4 09/21/16 08:00 98.4 96 27 139/89 97 09/21/16 08:00 115 09/21/16 07:54 97 35 09/21/16 06:00 106 09/21/16 04:20 100 40 09/21/16 04:00 40 09/21/16 04:00 100 09/21/16 04:00 99.9 104 21 146/64 100 09/21/16 04:00 98.1 09/21/16 02:00 96 09/21/16 00:58 100 40 09/21/16 00:00 99.5 120 19 147/88 98 09/21/16 00:00 40 09/21/16 00:00 120 09/20/16 22:00 104 09/20/16 21:11 96 40 09/20/16 20:00 40 09/20/16 20:00 110 09/20/16 20:00 98.1 110 22 138/71 100 09/20/16 20:00 98.1 09/20/16 18:00 115 09/20/16 16:00 115 09/20/16 16:00 97.1 117 24 124/69 96 09/20/16 16:00 40 09/20/16 16:00 97.1 09/20/16 15:51 97 40 09/20/16 14:00 115 09/20/16 12:00 115 09/20/16 12:00 99.2 09/20/16 12:00 100.0 115 23 122/69 96 09/20/16 12:00 40 09/20/16 11:29 99 40 Intake & Output 09/21/16 09/21/16 07:00 19:00 Intake Total 433 ml Balance 433 ml Intake IV Total 353 ml Other 80 ml # Voids 6 # Bowel Movements 4 # Sanitary Pads 0 Pads 0 Pads . Physical Exam CONSTITUTIONAL/GENERAL: This is an adequately nourished patient, in no apparent distress, on the ventilator. Initially without tremors, but fine tremor vs myoclonus begins after the stimulation of basic exam. TUBES/LINES/DRAINS: Tracheostomy; PEG; peripheral ivs. SCDs; SKIN: No jaundice, rashes, or lesions. No wounds seen anteriorly. Skin temperature appropriate. Not diaphoretic. HEAD: Atraumatic. Normocephalic. EYES: Pupils 2-3 mm and minimally reactive. No scleral icterus. small subconjunctival hemorrhage on left. Fundi not examined. ENT: Nose without bleeding or purulent drainage. NECK: Trachea midline. Tracheostomy wound healing well. CARDIOVASCULAR: Tachycardic ; Regular rhythm without murmurs, gallops, or rubs. No JVD. Peripheral pulses symmetric. RESPIRATORY/CHEST: Symmetric, unlabored respirations. No wheezes or crackles. GASTROINTESTINAL: Abdomen soft, nondistended. No MUSCULOSKELETAL: Extremities without clubbing, cyanosis. 1+ edema of the distal extremities. No mottling or clubbing. LYMPHATICS:Not examined. NEUROLOGICAL: Unresponsive to voice, touch, or painful stimuli. Near continuous tremor / myoclonus noted involving all four extremities once she is stimulated from exam. PSYCHIATRIC: Unable to evaluate due to her clinical condition . Diagnostic Tests Laboratory Laboratory Tests Test 09/19/16 09/20/16 09/21/16 09/21/16 05:45 11:00 03:52 10:30 White Blood Count 10.2 TH/MM3 10.2 TH/MM3 8.5 TH/MM3 (4.0-11.0) (4.0-11.0) (4.0-11.0) Red Blood Count 3.54 MIL/MM3 3.46 MIL/MM3 3.84 MIL/MM3 (4.00-5.30) (4.00-5.30) (4.00-5.30) Hemoglobin 10.0 GM/DL 9.7 GM/DL 10.5 GM/DL (11.6-15.3) (11.6-15.3) (11.6-15.3) Hematocrit 28.8 % 28.1 % 31.6 % (35.0-46.0) (35.0-46.0) (35.0-46.0) Mean Corpuscular Volume 81.4 FL 81.3 FL 82.2 FL (80.0-100.0) (80.0-100.0) (80.0-100.0) Mean Corpuscular Hemoglobin 28.2 PG 28.1 PG 27.3 PG (27.0-34.0) (27.0-34.0) (27.0-34.0) Mean Corpuscular Hemoglobin 34.7 % 34.6 % 33.2 % Concent (32.0-36.0) (32.0-36.0) (32.0-36.0) Red Cell Distribution Width 15.1 % 14.7 % 14.8 % (11.6-17.2) (11.6-17.2) (11.6-17.2) Platelet Count 278 TH/MM3 359 TH/MM3 467 TH/MM3 (150-450) (150-450) (150-450) Mean Platelet Volume 7.5 FL 7.4 FL 7.5 FL (7.0-11.0) (7.0-11.0) (7.0-11.0) Sodium Level 136 MEQ/L 138 MEQ/L 136 MEQ/L (136-145) (136-145) (136-145) Potassium Level 3.7 MEQ/L 3.8 MEQ/L 6.0 MEQ/L 4.1 MEQ/L (3.5-5.1) (3.5-5.1) (3.5-5.1) (3.5-5.1) Chloride Level 101 MEQ/L 102 MEQ/L 102 MEQ/L (98-107) (98-107) (98-107) Carbon Dioxide Level 27.2 MEQ/L 27.3 MEQ/L 24.7 MEQ/L (21.0-32.0) (21.0-32.0) (21.0-32.0) Anion Gap 8 MEQ/L (5-15) 9 MEQ/L (5-15) 9 MEQ/L (5-15) Blood Urea Nitrogen 15 MG/DL (7-18) 13 MG/DL (7-18) 12 MG/DL (7-18) Creatinine 0.66 MG/DL 0.46 MG/DL 0.39 MG/DL (0.50-1.00) (0.50-1.00) (0.50-1.00) Estimat Glomerular Filtration 115 ML/MIN 175 ML/MIN 212 ML/MIN Rate (>89) (>89) (>89) Random Glucose 100 MG/DL 87 MG/DL 79 MG/DL (74-106) (74-106) (74-106) Calcium Level 8.0 MG/DL 8.4 MG/DL 8.5 MG/DL (8.5-10.1) (8.5-10.1) (8.5-10.1) . Result Diagram: 09/21/16 0352 09/21/16 1030 Microbiology Microbiology Date/Time Procedure Status Source Growth 09/17/16 07:23 Aerobic Blood Culture - Preliminary Resulted Blood Peripheral NO GROWTH IN 4 DAYS 09/17/16 07:23 Anaerobic Blood Culture - Preliminary Resulted Blood Peripheral NO GROWTH IN 4 DAYS 09/17/16 06:15 Gram Stain - Final Complete Sputum Endotracheal 09/17/16 06:15 Sputum Culture - Final Complete Staphylococcus Aureus . Imaging Last Impressions Liver Ultrasound 09/18/16 0000 Signed Impressions: Service Date/Time: Sunday, September 18, 2016 09:27 - CONCLUSION: 1. There is sludge within the gallbladder. No other findings are present to indicate acute cholecystitis. 2. Mild splenomegaly. Miller Lee MD Chest X-Ray 09/18/16 0000 Signed Impressions: Service Date/Time: Sunday, September 18, 2016 05:01 - CONCLUSION: 1. Right perihilar edema versus pneumonia. There has been no significant change when compared to the prior exam. 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 This is nonocclusive. A retrievable IVC filter was deployed below the main hepatic veins but it was necessary to cross an accessory right hepatic vein. Jose Armando Jackson Jr., MD Head CT 09/12/16 0000 Signed Impressions: Service Date/Time: Monday, September 12, 2016 09:29 - CONCLUSION: Mild loss of lemos matter definition that can be seen with increasing intracranial pressure. Ricki Cavazos MD FACR Neck Magnetic Resonance Angiography 09/09/16 0000 Signed Impressions: Service Date/Time: August 16:02 - CONCLUSION: 1. Moderate to severe smooth narrowing of the left common carotid artery and also moderate narrowing of the proximal right common carotid artery as well as narrowing of both proximal vertebral arteries likely related to recent hanging. Etiology could be related to vasospasm or recent extrinsic prolonged compression. The distal internal carotid arteries and vertebral artery have more normal calibers. Findings called to Dr. Bhatt at the time of dictation. Gideon Brown MD Cervical Spine MRI 09/09/16 0000 Signed Impressions: Service Date/Time: August 16:02 - CONCLUSION: 1. Very minimal degenerative disc disease at C5-6. 2. No acute fracture or prevertebral soft tissue swelling. 3. No focal cervical cord abnormality. Tray Santiago MD Brain MRI 09/09/16 0000 Signed Impressions: Service Date/Time: August 16:02 - CONCLUSION: 1. Diffuse FLAIR-weighted hyperintensities involving the caudate nuclei bilaterally, bilateral hummel radiata, as well as the bilateral parietal and occipital cortex consistent with the patient's clinical diagnosis of anoxic encephalopathy. 2. No acute hemorrhage, midline shift, extra-axial fluid collection or abnormal enhancement. 3. Small fluid level within the right sphenoid sinus. Tray Santiago MD Cervical Spine CT 09/07/16 1800 Signed Impressions: Service Date/Time: Wednesday, September 07, 2016 18:06 - CONCLUSION: 1. No fracture or subluxation. 2. Scattered groundglass nodules throughout the upper lobes, nonspecific but can be seen with hypersensitivity pneumonitis. Artem Madera MD . Procedures [place] bolt 09/12/16 (and subsequent removal) Tracheostomy PEG tube placement . 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 . (2) pain 0-10 Scale: Unable to quantify Comment: Possible sources of pain include trauma from hanging; tracheostomy wound; prolonged bedbound status; venous access catheters; anton; etc. Pertinent Non-Medical Issues Psychosocial: Unmarried, no children. Spiritual: Not spiritual or religion, but family reports that they are Gnosticist and quite spiritual. Their rabbi has participated in care during this hospitalization. has told mother "she should give it a month." Legal: The patient lacks capacity for decision-making and will not regain that capacity. The patient's father has not been a part of her life since , and his whereabouts are unknown. The patient is unmarried, and her mother is thus the decision making proxy. Ethical issues impacting care: None . Important Contacts Mother: Agnieszka Tyson" [facility] [phone] Grandmother: Loy Mccarty" [facility] [phone] Boyfriend: Seth Azul" [facility] [phone] . Prognosis The patient's prognosis is poor, and clearly she will not recover significant brain function. If the goals become comfort oriented, she is appropriate for withdrawal of life support, and hospice care. . Code Status: Full Code Plan * FULL CODE, per patient's mother on 09/17/16. The patient's mother notes that her Gnosticist tradition "would not allow me to make her a DNR." has told mother to "give it a month." * GOALS: The patient's mother has a clear understanding of the brain injury and poor prognosis, but wants to "allow more time for a possible miracle." She saw no reason to delay proceeding with trach and PEG, as she is not going to with withdraw life support within the upcoming few days. She wants all current care to continue, and for the patient to remain FULL CODE. told her "to give it a month." * DECISION-MAKING: The patient lacks capacity for decision-making and there is no reasonable medical probability of recovering capacity. There has been no contact with the patient's father since the patient was born, and the decision making proxy is the patient's mother "Reymundo." * Pain: She is receiving scheduled oxycodone and prn fentanyl. The prn fentanyl appears to be be given to supplement prn lorazepam for myoclonus. It is difficult to know if there is any actual discomfort. No further recommendations at this time. * Dyspnea is being managed via trach - to t-tube. If there is dyspnea, it is probably also helped by opiates and benzos currently being given. No further recommendations at this time. * Encephalopathy is likely secondary to the anoxic injury with neurology feeling there is poor prognosis for any type of meaningful recovery. I have no further medication recommendations at this time. 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 We could either increase the clonazepam or add valproic acid. If we go the latter route , can start at 15mg/kg day increasing by 5-10 mg/kg per day each week with the therapeutic range usually between 1200 and 2000 mg /day. * Evaluation for heparin induced thrombocytopenia under way. May have to transition to coumadin if HIT w/u is positive. * Discussed vascular access with issues with emergency care tech. * Palliative care team will ask Dr. Manuel to provide recommended reading on coma to patient's mother. * * Palliative care social director offered supportive visits. * Discussed family need for frequent updates with primary nurse. * Palliative Care will continue to follow the patient during this hospitalization to assist with symptom management and to further clarify goals of medical treatment as the clinical course evolves. . Time Spent Total Floor Time (mins): 60 (Total floor time included chart review, patient exam, above referenced family meeting, discussiono of case with Dr. Barry, discussion with primary nurse, and documentation. ) Face to Face Time (mins): 10 >50% Counseling/Coord of Care: Yes Attestation To help prompt me to consider important information that might be impacting today's encounter and assessment, information from prior notes written by myself or my colleagues may have been "brought forward" into today's note. My signature on this note, however, is an attestation that I personally performed the exam, history, and/or decision-making noted today, and, unless otherwise indicated, the interactions with patient, family, and staff as well as the review of records all occurred today. I also attest that the listed assessment and stated plan reflect my best clinical judgment today based on the combination of historical information, prior notes, and today's exam/ interactions. When time spent is documented, it refers only to time spent today by the signer, or if indicated, combined time spent today by collaborating physician/nurse practitioner. . Sergey Troncoso MD Sep 21, 2016 12:00
--- NOTE | 2016-09-21 15:18 | HHI.NSPN ---
Note Status Status: Progress Note Interval History Diagnosis anoxic encephalopathy Interval History The patient has a 20-year-old female brought in as a Trauma Alert. She was found hanging from a pull-up bar. She was in asystole at the scene, treated with epinephrine and regained a pressure after that. Initially she was unresponsive. GCS was 3. The patient has been unresponsive. There has been no seizure activity at present. 09/13. No clinical improvement. Comatose. Myoclonic jerks 09/14 has not shown any clinical improvement 09/15. Rwemains intubated and comatose without improvement 09/17. no significant neurologic improvement. off sedation. only intermittent ativan for myoclonus 09/18. No change in neuro exam. Continued to spike high temperatures up to 102.5. Will discontinue Cerebyx start Keppra. Obtain gallbladder ultrasound. Start empiric cefepime and vancomycin. S/p Trach yesterday 09/19. No neuro changes. no improvements or changes. sodium trending down. repeat sputum culture 09/17 growing staph aureus 09/20. Overnight fevers to 103 again. No neurological improvement. She has bloody secretion from bilateral nares, suspected acute sinusitis. Continue broad- spectrum antibiotics. She is getting a PEG today 09/21. Status post PEG yesterday. no changes. sputum again growing MSSA. Labs, Micro, & Vital Signs Results Date Time Temp Pulse Resp B/P Pulse Ox O2 Delivery O2 Flow Rate FiO2 09/21/16 14:00 102 09/21/16 12:00 115 09/21/16 12:00 98.0 09/21/16 12:00 98.0 91 23 130/86 93 09/21/16 10:00 115 09/21/16 08:15 95 T-piece 7.00 40 09/21/16 08:00 98.4 09/21/16 08:00 98.4 96 27 139/89 97 09/21/16 08:00 115 09/21/16 07:54 97 35 09/21/16 06:00 106 09/21/16 04:20 100 40 09/21/16 04:00 40 09/21/16 04:00 100 09/21/16 04:00 99.9 104 21 146/64 100 09/21/16 04:00 98.1 09/21/16 02:00 96 09/21/16 00:58 100 40 09/21/16 00:00 99.5 120 19 147/88 98 09/21/16 00:00 40 09/21/16 00:00 120 09/20/16 22:00 104 09/20/16 21:11 96 40 09/20/16 20:00 40 09/20/16 20:00 110 09/20/16 20:00 98.1 110 22 138/71 100 09/20/16 20:00 98.1 09/20/16 18:00 115 09/20/16 16:00 115 09/20/16 16:00 97.1 117 24 124/69 96 09/20/16 16:00 40 09/20/16 16:00 97.1 09/20/16 15:51 97 40 09/21/16 07:00 Intake Total 828 ml Balance 828 ml Constitutional Vital Signs Date Time Temp Pulse Resp B/P Pulse Ox O2 Delivery O2 Flow Rate FiO2 09/21/16 14:00 102 09/21/16 12:00 115 09/21/16 12:00 98.0 09/21/16 12:00 98.0 91 23 130/86 93 09/21/16 10:00 115 09/21/16 08:15 95 T-piece 7.00 40 09/21/16 08:00 98.4 09/21/16 08:00 98.4 96 27 139/89 97 09/21/16 08:00 115 09/21/16 07:54 97 35 09/21/16 06:00 106 09/21/16 04:20 100 40 09/21/16 04:00 40 09/21/16 04:00 100 09/21/16 04:00 99.9 104 21 146/64 100 09/21/16 04:00 98.1 09/21/16 02:00 96 09/21/16 00:58 100 40 09/21/16 00:00 99.5 120 19 147/88 98 09/21/16 00:00 40 09/21/16 00:00 120 09/20/16 22:00 104 09/20/16 21:11 96 40 09/20/16 20:00 40 09/20/16 20:00 110 09/20/16 20:00 98.1 110 22 138/71 100 09/20/16 20:00 98.1 09/20/16 18:00 115 09/20/16 16:00 115 09/20/16 16:00 97.1 117 24 124/69 96 09/20/16 16:00 40 09/20/16 16:00 97.1 09/20/16 15:51 97 40 09/21/16 07:00 Intake Total 828 ml Balance 828 ml Review of Systems/Exam Exam She is intubated and sedated. No response to pain. General myoclonic movements on stimulation, off sedation except intermittent ativan/fentanyl. GCS 4 Cranial Nerves: Pupils 2mm, non-reactive to light. Pupils are 4 mm reactive to 3 mm bilaterally. Slight corneal reflex present on the left, absent on the right. No cough or gag. Disconjugate gaze. No spontaneous eye opening. Face musculature appeared symmetrical at rest. Face sensation, olfaction, visual phillips, and hearing cannot be adequately assessed due to his neurological condition. The patient has a corneal reflex. SHe has no gag reflex. The sternocleidomastoid and trapezius are symmetrical. Cervical Spine: Her neck is soft, supple, without nuchal rigidity. Motor: Extension response to pain Reflexes: Deep tendon reflexes are trace in the biceps, triceps, and brachioradialis, bilaterally, in the upper extremities. In the lower extremities, the patellar and ankles TRACE. There is a bilateral silent response to plantar stim. There is no clonus Sensory: On examination there is extension response to painful stimuli Cerebellar: Examination cannot be adequately assessed due to the patient's neurological condition. Medications Current Medications Current Medications Etomidate 40 mg 40 mg STK-MED ONCE .ROUTE ; Start 09/07/16 at 17:53; Stop at 17:54; Status DC Propofol (Diprivan 1000 Mg/100ml Inj) 100 ml @ As Directed STK-MED ONCE .ROUTE ; Start 09/07/16 at 18:14; Stop 09/07/16 at 18:15; Status DC Succinylcholine Chloride 200 mg 200 mg STK-MED ONCE .ROUTE ; Start 09/07/16 at 18:38; Stop 09/07/16 at 18:39; Status DC Sodium Chloride (NS 1000 ml Inj) 1,000 ml @ 100 mls/hr Q10H IV Last administered on 09/07/16 19:30; Start 09/07/16 at 19:30; Stop 09/08/16 at 03:31 ; Status DC Sodium Chloride (NS Flush) 2 ml UNSCH PRN IV FLUSH FLUSH AFTER USING IV ACCESS ; Start 09/07/16 at 18:45; Stop 09/12/16 at 17:55; Status DC Enalaprilat (Vasotec Inj) 1.25 mg Q8H PRN IV SBP>180, DBP>95; Start 09/07/16 at 18:45; Stop 09/17/16 at 13:35; Status DC Ondansetron HCl (Zofran Inj) 4 mg Q6H PRN IV NAUSEA OR VOMITING; Start at 18:45 Pantoprazole Sodium (Protonix Inj) 40 mg Q24H IVP Last administered on 20:45; Start 09/07/16 at 20:00; Stop 09/17/16 at 13:35; Status DC Docusate Sodium (Colace) 100 mg BID PO Last administered on 09/09/16 21:33; Start 09/07/16 at 21:00; Stop 09/10/16 at 09:20; Status DC Magnesium Hydroxide (Milk Of Magnesia Liq) 30 ml Q6H PRN PO CONSTIPATION; Start 09/07/16 at 18:45 Miscellaneous Information 1 [id number] Last administered on 09/07/16 18:45; Start 09/07/16 at 18:45 Chlorhexidine Gluconate (Chlorhexidine 2% Cloth) Taper DAILY@04 TOP Last administered on 09/12/16 01:00; Start 09/08/16 at 04:00; Stop 09/04/17 at 03:59 Chlorhexidine Gluconate 3 pack 3 pack UNSCH PRN TOP HYGIENIC CARE; Start at 18:45 Propofol 100 ml @ As Directed STK-MED ONCE .ROUTE Last administered on 01:42; Start 09/07/16 at 19:20; Stop 09/07/16 at 19:21; Status DC Midazolam HCl (Versed 100 Mg/ ml Inj) 100 ml @ 0 mls/hr TITRATE IV Last administered on 09/07/16 21:33; Start 09/07/16 at 21:30; Stop 09/11/16 at 11:27 ; Status DC Lorazepam 1 mg 1 mg Q1H PRN IV SEIZURES Last administered on 09/21/16 12:06; Start 09/07/16 at 22:00 Midazolam HCl 100 ml @ 0 mls/hr TITRATE IV ; Start 09/07/16 at 22:00; Stop 09/07 at 22:00; Status DC Miscellaneous Information ml @ 0 mls/hr UNSCH IV ; Start 09/07/16 at 22:00 Sodium Chloride (NS Flush) 2 ml UNSCH PRN IV FLUSH FLUSH AFTER USING IV ACCESS Last administered on 09/19/16 19:58; Start 09/07/16 at 22:00 Sodium Chloride 2 ml 2 ml UNSCH PRN IV FLUSH IV FLUSH; Start 09/07/16 at 22:00 Sodium Chloride (NS 1000 ml Inj) 1,000 ml @ 2,000 mls/hr Q30M IV Last administered on 09/08/16 00:23; Start 09/07/16 at 22:00; Stop 09/07/16 at 22:59 ; Status DC Artificial Tears 1 applic 1 applic Q4H PRN EACH EYE SEE LABEL COMMENTS Last administered on 09/17/16 08:00; Start 09/07/16 at 22:00 Cisatracurium Besylate 100 mg/ Sodium Chloride 250 ml @ 0 mls/hr TITRATE PRN IV ONLY IF SHIVERING Last administered on 09/08/16 08:21; Start 09/07/16 at 21: 30; Stop 09/09/16 at 07:48; Status DC Norepinephrine Bitartrate 4 mg/ Sodium Chloride 250 ml @ 0 mls/hr TITRATE IV ; Start 09/07/16 at 21:30; Stop 09/08/16 at 12:56; Status DC Sodium Chloride 2,000 ml @ 0 mls/hr NOW IV ; Start 09/07/16 at 23:00; Stop at 23:56; Status DC Potassium Chloride 100 ml @ 50 mls/hr Q2H PRN IV For Potassium 2.8 - 3.2 mEq/ L Last administered on 09/13/16 09:02; Start 09/08/16 at 00:30 Potassium Chloride (KCl 20 Meq Premix Inj) 100 ml @ 50 mls/hr Q2H PRN IV For Potassium 2.8 - 3.2 mEq/L Last administered on 09/08/16 18:20; Start 09/08/16 at 00:30 Potassium Bicarb/ Potassium Chloride 50 meq 50 meq UNSCH PRN PO For Potassium 3.3 - 3.5 mEq/L; Start 09/08/16 at 00:30 Potassium Chloride 100 ml @ 25 mls/hr UNSCH PRN IV For Potassium 3.3 - 3.5 mEq /L Last administered on 09/15/16 04:38; Start 09/08/16 at 00:30 Potassium Chloride 100 ml @ 50 mls/hr Q2H PRN IV For Potassium 3.3 - 3.5 mEq/ L Last administered on 09/14/16 18:35; Start 09/08/16 at 00:30 Magnesium Sulfate/ Sodium Chloride (Magnesium Sulfate Inj/NS Inj) 100 ml @ 50 mls/hr UNSCH PRN IV For Magnesium 0.9 - 1.1 mg/dL; Start 09/08/16 at 00:30 Magnesium Oxide 800 mg 800 mg UNSCH PRN PO For Magnesium 1.2 - 1.6 mg/dL; Start 09/08/16 at 00:30 Magnesium Sulfate/ Sodium Chloride (Magnesium Sulfate Inj/NS Inj) 100 ml @ 50 mls/hr UNSCH PRN IV For Magnesium 1.2 - 1.6 mg/dL Last administered on 07:11; Start 09/08/16 at 00:30 Potassium Phosphate 2000 mg 2,000 mg Q4H PRN PO For Phosphorus < 2.5 mg/dL; Start 09/08/16 at 00:30 Sodium Phosphate/ Sodium Chloride (Sodium Phosphate Inj/NS 250 ml Inj) 250 ml @ 42 mls/hr UNSCH PRN IV For Phosphorus < 2.5 mg/dL; Start 09/08/16 at 00:30 Potassium Phosphate 2000 mg 2,000 mg UNSCH PRN PO/TUBE SEE LABEL COMMENTS; Start 09/08/16 at 00:30 Potassium Phosphate 30 mmol/ Sodium Chloride 260 ml @ 42 mls/hr UNSCH PRN IV SEE LABEL COMMENTS; Start 09/08/16 at 00:30 Propofol 100 ml @ As Directed STK-MED ONCE .ROUTE ; Start 09/08/16 at 01:36; Stop 09/08/16 at 01:37; Status DC Propofol (Diprivan 1000 Mg/100ml Inj) 100 ml @ 0 mls/hr TITRATE IV Last administered on 09/16/16 11:59; Start 09/08/16 at 02:00 Vecuronium Coello 10 mg 10 mg STK-MED ONCE .ROUTE ; Start 09/08/16 at 02:33; Stop 09/08/16 at 02:34; Status DC Sodium Chloride (NS 1000 ml Inj) 1,000 ml @ 0 mls/hr NOW IV Last administered on 09/08/16 02:44; Start 09/08/16 at 02:45; Stop 09/08/16 at 03:20; Status DC Vecuronium Coello 10 mg 10 mg NOW IV Last administered on 09/08/16 02:43; Start 09/08/16 at 02:35; Stop 09/08/16 at 02:46; Status DC Sodium Bicarbonate 150 meq/Dextrose 1,150 ml @ 100 mls/hr [id number] IV Last administered on 09/08/16 03:53; Start 09/08/16 at 04:00; Stop 09/08/16 at 12:56 ; Status DC Fentanyl Citrate (fentaNYL DRIP) 250 ml @ 0 mls/hr TITRATE IV Last administered on 09/08/16 05:06; Start 09/08/16 at 05:00; Stop 09/11/16 at 11:27 ; Status DC Phenylephrine HCl (Neosynephrine Inj) 10 mg STK-MED ONCE .ROUTE ; Start at 07:00; Stop 09/08/16 at 07:02; Status DC Phenylephrine HCl 10 mg 10 mg STK-MED ONCE .ROUTE ; Start 09/08/16 at 07:06; Stop 09/08/16 at 07:07; Status DC Piperacillin Sod/ Tazobactam Sod (Zosyn 4.5 Gm Premix) 100 ml @ 200 mls/hr Q6H IV Last administered on 09/16/16 02:36; Start 09/08/16 at 08:00; Stop 09/16/16 at 06:00; Status DC Terbutaline Sulfate 1 mg 1 mg UNSCH PRN SQ For Extravasation; Start 09/08/16 at 07:30; Stop 09/08/16 at 13:02; Status DC Phenylephrine HCl 160 mg/Dextrose 500 ml @ 0 mls/hr TITRATE IV ; Start 09/08/16 at 07:30; Stop 09/08/16 at 12:57; Status DC Sodium Chloride (NS 1000 ml Inj) 1,000 ml @ 999 mls/hr BOLUS ONCE IV Last administered on 09/08/16 07:30; Start 09/08/16 at 07:30; Stop 09/08/16 at 08:30 ; Status DC Albumin Human 25 gm 25 gm ONCE ONCE IV Last administered on 09/08/16 08:05; Start 09/08/16 at 08:00; Stop 09/08/16 at 08:01; Status DC Vancomycin HCl 1000 mg/Sodium Chloride 250 ml @ 250 mls/hr ONCE ONCE IV Last administered on 09/08/16 09:01; Start 09/08/16 at 08:30; Stop 09/08/16 at 09:29 ; Status DC Sodium Bicarbonate (Sodium Bicarbonate 8.4% Inj) 50 ml @ As Directed STK-MED ONCE .ROUTE ; Start 09/08/16 at 08:49; Stop 09/08/16 at 08:50; Status DC Sodium Bicarbonate 100 meq 100 meq STAT ONCE IV Last administered on 09:00; Start 09/08/16 at 11:00; Stop 09/08/16 at 11:01; Status DC Norepinephrine Bitartrate/Sodium Chloride (Levophed Inj/NS 250 ml Inj) 250 ml @ 0 mls/hr TITRATE IV Last administered on 09/09/16 17:54; Start 09/08/16 at 13: 00; Stop 09/09/16 at 11:11; Status DC Terbutaline Sulfate 1 mg 1 mg UNSCH PRN SQ For Extravasation; Start 09/08/16 at 13:00; Stop 09/09/16 at 17:47; Status DC Sodium Bicarbonate 150 meq/Sterile Water 1,150 ml @ 150 mls/hr Q7H40M IV Last administered on 09/09/16 05:26; Start 09/08/16 at 15:00; Stop 09/09/16 at 07:47 ; Status DC Sodium Chloride 1,000 ml @ 0 mls/hr BOLUS ONCE IV Last administered on 14:00; Start 09/08/16 at 14:15; Stop 09/08/16 at 14:16; Status DC Sodium Chloride 1,000 ml @ 0 mls/hr BOLUS ONCE IV ; Start 09/08/16 at 14:30; Stop 09/08/16 at 14:31; Status Cancel Sodium Chloride (NS 1000 ml Inj) 1,000 ml @ 999 mls/hr BOLUS ONCE IV Last administered on 09/08/16 18:00; Start 09/08/16 at 18:00; Stop 09/08/16 at 19:00 ; Status DC Lorazepam (Ativan Inj) 2 mg STK-MED ONCE .ROUTE ; Start 09/09/16 at 06:53; Stop 09/09/16 at 06:54; Status DC Lorazepam (Ativan Inj) 4 mg STK-MED ONCE .ROUTE ; Start 09/09/16 at 06:57; Stop 09/09/16 at 06:58; Status DC Phenylephrine HCl (Neosynephrine Inj) 40 mg STK-MED ONCE .ROUTE ; Start at 07:33; Stop 09/09/16 at 07:34; Status DC Phenylephrine HCl 40 mg 40 mg STK-MED ONCE .ROUTE ; Start 09/09/16 at 07:34; Stop 09/09/16 at 07:35; Status DC Fosphenytoin Sodium/Sodium Chloride (Cerebyx Inj/NS Inj) 70 ml @ 280 mls/hr ONCE ONCE IV Last administered on 09/09/16 08:15; Start 09/09/16 at 09:00; Stop 09/09/16 at 09:14; Status DC Fosphenytoin Sodium (Cerebyx Inj) 100 mgpe Q8HR IV Last administered on 23:34; Start 09/09/16 at 14:00; Stop 09/18/16 at 04:56; Status DC Lorazepam 6 mg 6 mg ONCE ONCE IV Last administered on 09/09/16 07:00; Start 09/09/16 at 08:00; Stop 09/09/16 at 08:01; Status DC Phenylephrine HCl/ Dextrose (Neosynephrine Inj/D5W 500 ml Inj) 500 ml @ 0 mls/ hr TITRATE IV ; Start 09/09/16 at 09:45; Stop 09/09/16 at 09:45; Status DC Terbutaline Sulfate 1 mg 1 mg UNSCH PRN SQ FOR EXTRAVASATION PROTOCOL; Start at 09:45; Stop 09/13/16 at 08:38; Status DC Phenylephrine HCl 40 mg/Sodium Chloride 500 ml @ 0 mls/hr TITRATE IV Last administered on 09/09/16 17:55; Start 09/09/16 at 09:45; Stop 09/09/16 at 17:47 ; Status DC Vancomycin HCl 1000 mg/Sodium Chloride 250 ml @ 250 mls/hr ONCE ONCE IV Last administered on 09/09/16 11:23; Start 09/09/16 at 10:45; Stop 09/09/16 at 11:44 ; Status DC Pharmacy Profile Note 0 ml @ 0 mls/hr UNSCH OTHER ; Start 09/09/16 at 10:45; Stop 09/13/16 at 08:39; Status DC Norepinephrine Bitartrate 4 mg/ Sodium Chloride 250 ml @ 0 mls/hr TITRATE IV Last administered on 09/09/16 15:33; Start 09/09/16 at 11:15; Stop 09/09/16 at 17:47; Status DC Vancomycin HCl/ Sodium Chloride (Vancomycin Inj/ NS 250 ml Inj) 250 ml @ 250 mls/hr Q8H IV Last administered on 09/11/16 05:52; Start 09/09/16 at 20:00; Stop 09/11/16 at 12:58; Status DC Miscellaneous Information SPECIFIC LAB TO BE DRAWN:VANCOMYCIN TROUGH DATE TO... ONCE ONCE .XX Last administered on 09/10/16 11:27; Start 09/10/16 at 11:45; Stop 09/10/16 at 11:46; Status DC Sodium Chloride (NS 1000 ml Inj) 1,000 ml @ 999 mls/hr Q1H1M IV Last administered on 09/09/16 11:00; Start 09/09/16 at 11:45; Stop 09/09/16 at 13:45 ; Status DC Gadodiamide 20 ml 20 ml STK-MED ONCE IV Last administered on 09/09/16 16:39; Start 09/09/16 at 16:39; Stop 09/09/16 at 16:40; Status DC Phenylephrine HCl/ Dextrose (Neosynephrine Inj/D5W 500 ml Inj) 500 ml @ 0 mls/ hr TITRATE IV ; Start 09/09/16 at 18:00; Stop 09/09/16 at 18:00; Status DC Terbutaline Sulfate 1 mg 1 mg UNSCH PRN SQ FOR EXTRAVASATION PROTOCOL; Start at 18:00; Stop 09/13/16 at 08:38; Status DC Norepinephrine Bitartrate 16 mg/ Dextrose 250 ml @ 0 mls/hr TITRATE IV ; Start 09/09/16 at 18:00; Stop 09/09/16 at 18:00; Status DC Phenylephrine HCl 160 mg/Sodium Chloride 500 ml @ 0 mls/hr TITRATE IV Last administered on 09/10/16 04:52; Start 09/09/16 at 18:00; Stop 09/11/16 at 11:27 ; Status DC Norepinephrine Bitartrate/Sodium Chloride (Levophed Inj/NS 250 ml Inj) 250 ml @ 0 mls/hr TITRATE IV Last administered on 09/10/16 04:52; Start 09/09/16 at 18: 00; Stop 09/13/16 at 08:39; Status DC Aspirin (Aspirin Chew) 81 mg DAILY CHEW Last administered on 09/13/16 10:09; Start 09/10/16 at 09:00; Status Hold Artificial Tears (Tears Naturale Opth Soln) 1 drop BID EACH EYE Last administered on 09/21/16 09:00; Start 09/10/16 at 21:00 Docusate Sodium (Colace Liq) 100 mg BID PO Last administered on 09/20/16 20:21 ; Start 09/10/16 at 21:00 Midazolam HCl (Versed Inj) 5 mg STK-MED ONCE .ROUTE ; Start 09/10/16 at 09:43; Stop 09/10/16 at 09:44; Status DC Acetaminophen (Tylenol 650 Mg/ 20 ml Liq) 650 mg NOW ONCE PO Last administered on 09/10/16 11:19; Start 09/10/16 at 10:30; Stop 09/10/16 at 10:31 ; Status DC Dextrose (D50w (Syr) Inj) 50 ml STK-MED ONCE .ROUTE ; Start 09/10/16 at 12:49; Stop 09/10/16 at 12:50; Status DC Dextrose (D50w (Syr) Inj) 50 ml NOW ONCE IV PUSH Last administered on 12:45; Start 09/10/16 at 13:30; Stop 09/10/16 at 13:31; Status DC Miscellaneous Information SPECIFIC LAB TO BE DRAWN:VANCOMYCIN TROUGH DATE TO... ONCE ONCE .XX Last administered on 09/11/16 11:45; Start 09/11/16 at 11:45; Stop 09/11/16 at 11:46; Status DC Midazolam HCl (Versed Inj) 3 mg ONCE ONCE IV PUSH Last administered on 09:44; Start 09/10/16 at 14:15; Stop 09/10/16 at 14:16; Status DC Dextrose 50 ml 50 ml NOW ONCE IV PUSH Last administered on 09/10/16 16:09; Start 09/10/16 at 16:00; Stop 09/10/16 at 16:34; Status DC Sodium Chloride (NS 1000 ml Inj) 1,000 ml @ 100 mls/hr Q10H IV Last administered on 09/15/16 13:20; Start 09/11/16 at 12:00; Stop 09/15/16 at 19:09; Status DC Propranolol HCl (Inderal) 20 mg Q8HR PO Last administered on 09/12/16 04:44; Start 09/11/16 at 14:00; Stop 09/12/16 at 17:13; Status DC Magnesium Citrate (Citroma Liq) 300 ml ONCE ONCE NG ; Start 09/12/16 at 09:00; Stop 09/12/16 at 09:01; Status DC Lactulose 30 ml 30 ml QID PO Last administered on 09/20/16 20:22; Start at 09:00 Vancomycin HCl/ Sodium Chloride (Vancomycin Inj/ NS 250 ml Inj) 250 ml @ 250 mls/hr Q12H IV Last administered on 09/12/16 21:29; Start 09/12/16 at 10:00; Stop 09/13/16 at 08:39; Status DC Miscellaneous Information SPECIFIC LAB TO BE CHANDU... ONCE ONCE .XX ; Start at 09:45; Stop 09/14/16 at 09:45; Status DC Furosemide (Lasix Inj) 20 mg ONCE ONCE IV PUSH Last administered on 09/12/16 12:04; Start 09/12/16 at 09:30; Stop 09/12/16 at 09:31; Status DC Mannitol 12.5 gm 12.5 gm Q8H IV Last administered on 09/12/16 15:37; Start at 14:00; Stop 09/12/16 at 21:51; Status DC Sodium Chloride 188 meq/Sodium Chloride 1,047 ml @ 20 mls/hr Q24H IV Last administered on 09/14/16 19:49; Start 09/12/16 at 16:00; Stop 09/16/16 at 15:33; Status DC Norepinephrine Bitartrate (Levophed-Dextrose Drip) 250 ml @ 0 mls/hr TITRATE IV Last administered on 09/16/16 05:37; Start 09/12/16 at 18:00; Stop 09/16/16 at 08:02; Status DC Terbutaline Sulfate (Brethine Inj) 1 mg UNSCH PRN SQ For Extravasation; Start 09/12/16 at 18:00; Stop 09/16/16 at 08:02; Status DC Iohexol (Omnipaque 350 Inj) 30 ml STK-MED ONCE IV Last administered on 21:02; Start 09/12/16 at 21:02; Stop 09/12/16 at 21:03; Status DC Mannitol (Mannitol Inj) 12.5 gm Q8H IV Last administered on 09/16/16 06:56; Start 09/12/16 at 23:00; Stop 09/17/16 at 04:13; Status DC Potassium Bicarb/ Potassium Chloride (K-Lyte Cl Eff) 25 meq DAILY PO Last administered on 09/18/16 08:41; Start 09/13/16 at 09:00 Magnesium Citrate (Citroma Liq) 300 ml ONCE ONCE PO ; Start 09/13/16 at 08:30; Stop 09/13/16 at 08:41; Status DC Bisacodyl (Dulcolax Supp) 10 mg DAILY RECTAL Last administered on 09/13/16 10: 09; Start 09/13/16 at 09:00 Oxycodone HCl (Roxicodone) 5 mg Q6H OG-TUBE Last administered on 09/21/16 13:55 ; Start 09/14/16 at 20:00 Fentanyl Citrate (fentaNYL INJ) 100 mcg ONCE ONCE IV PUSH ; Start 09/14/16 at 20 :00; Stop 09/14/16 at 20:01; Status DC Fentanyl Citrate (fentaNYL INJ) 50 mcg Q1H PRN IV PUSH PAIN, ICP >20 Last administered on 09/21/16 12:06; Start 09/14/16 at 19:00 Acetaminophen 650 mg 650 mg Q4H PRN PO FEVER Last administered on 09/19/16 10: 21; Start 09/15/16 at 20:30 Norepinephrine Bitartrate/Sodium Chloride (Levophed Inj/NS 250 ml Inj) 250 ml @ 0 mls/hr TITRATE IV Last administered on 09/16/16 09:11; Start 09/16/16 at 08:15 ; Stop 09/16/16 at 15:33; Status DC Terbutaline Sulfate (Brethine Inj) 1 mg UNSCH PRN SQ For Extravasation; Start 09/16/16 at 08:15; Stop 09/17/16 at 13:35; Status DC Pantoprazole Sodium (Protonix) 40 mg DAILY PO ; Start 09/18/16 at 09:00 Furosemide (Lasix Inj) 20 mg ONCE ONCE IV PUSH Last administered on 09/17/16 14:30; Start 09/17/16 at 13:30; Stop 09/17/16 at 13:42; Status DC Cisatracurium Besylate (Nimbex Inj) 20 mg ONCE ONCE IV Last administered on 14:30; Start 09/17/16 at 13:30; Stop 09/17/16 at 13:43; Status DC Midazolam HCl (Versed Inj) 10 mg ONCE ONCE IV PUSH Last administered on 14:53; Start 09/17/16 at 13:30; Stop 09/17/16 at 13:44; Status DC Fentanyl Citrate 250 mcg 250 mcg ONCE ONCE IV PUSH Last administered on 13:30; Start 09/17/16 at 13:30; Stop 09/17/16 at 13:42; Status DC Cefazolin Sodium/ Sodium Chloride (Ancef Inj/NS Inj) 100 ml @ 200 mls/hr [employer] IV ; Start 09/20/16 at 16:00; Stop 09/23/16 at 15:59 Clonazepam (KlonoPIN) 1 mg Q8H PO Last administered on 09/21/16 08:54; Start at 18:00 Lorazepam (Ativan Inj) 3 mg NOW IV Last administered on 09/18/16 04:04; Start 09/18/16 at 04:00; Stop 09/18/16 at 05:20; Status DC Acetaminophen (Ofirmev Inj) 1,000 mg NOW IV Last administered on 09/18/16 04:03 ; Start 09/18/16 at 04:00; Stop 09/18/16 at 05:20; Status DC Ibuprofen 600 mg 600 mg Q6H PRN PO fever >100.5 Last administered on 09/18/16 20:48; Start 09/18/16 at 04:15; Stop 09/18/16 at 20:55; Status DC Levetriacetam 100 ml @ 400 mls/hr Q12HR IV Last administered on 09/21/16 07:54 ; Start 09/18/16 at 09:00 Cefepime HCl 2000 mg/Sodium Chloride 100 ml @ 200 mls/hr Q8H IV ; Start at 05:00; Stop 09/18/16 at 05:18; Status DC Vancomycin HCl/ Sodium Chloride (Vancomycin Inj/ NS 250 ml Inj) 250 ml @ 250 mls/hr ONCE ONCE IV Last administered on 09/18/16 08:40; Start 09/18/16 at 05: 00; Stop 09/18/16 at 05:59; Status DC Lorazepam 3 mg 3 mg NOW IV Last administered on 09/18/16 05:19; Start 09/18/16 at 05:30; Stop 09/18/16 at 06:30; Status DC Cefepime HCl/ Sodium Chloride (Maxipime Inj/NS Inj) 100 ml @ 200 mls/hr Q8H IV Last administered on 09/21/16 05:57; Start 09/18/16 at 06:00; Stop 09/21/16 at 08:02; Status DC Fondaparinux (Arixtra Inj) 7.5 mg Q24H SQ Last administered on 09/21/16 06:03; Start 09/18/16 at 06:00 Propranolol HCl 20 mg 20 mg Q6HR PO Last administered on 09/21/16 11:26; Start 09/18/16 at 06:45 Sodium Chloride/ Sodium Chloride (Sodium Chloride 23.4% Inj/NS 1000 ml Inj) 1, 047 ml @ 20 mls/hr Q24H IV Last administered on 09/18/16 19:50; Start 09/18/16 at 20:00; Stop 09/19/16 at 07:57; Status DC Ibuprofen (Motrin Liq) 600 mg Q6H PRN PO FEVER > 100.5 Last administered on 09/19 14:20; Start 09/18/16 at 21:00 Sodium Chloride (Sodium Chloride) 3 gm Q8H PO Last administered on 09/21/16 07: 55; Start 09/19/16 at 08:00 Acetaminophen (Ofirmev Inj) 1,000 mg UNSCH X1 IV Last administered on 22:52; Start 09/19/16 at 22:15; Stop 09/19/16 at 23:45; Status DC Propofol 300 mg 300 mg STK-MED ONCE IV ; Start 09/20/16 at 15:16; Stop 09/20/16 at 16:16; Status DC Cefazolin Sodium/ Dextrose (Ancef 2 Gm Premix) 50 ml @ 100 mls/hr Q8H IV Last administered on 09/21/16 08:54; Start 09/21/16 at 08:00; Stop 09/27/16 at 07:59 Medical Decision Making MDM Remarks Last Impressions Liver Ultrasound 09/18/16 0000 Signed Impressions: Service Date/Time: Sunday, September 18, 2016 09:27 - CONCLUSION: 1. There is sludge within the gallbladder. No other findings are present to indicate acute cholecystitis. 2. Mild splenomegaly. Miller Lee MD Chest X-Ray 09/18/16 0000 Signed Impressions: Service Date/Time: Sunday, September 18, 2016 05:01 - CONCLUSION: 1. Right perihilar edema versus pneumonia. There has been no significant change when compared to the prior exam. 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 This is nonocclusive. A retrievable IVC filter was deployed below the main hepatic veins but it was necessary to cross an accessory right hepatic vein. Jose Armando Jackson Jr., MD Head CT 09/12/16 0000 Signed Impressions: Service Date/Time: Monday, September 12, 2016 09:29 - CONCLUSION: Mild loss of lemos matter definition that can be seen with increasing intracranial pressure. Ricki Cavazos MD FACR Neck Magnetic Resonance Angiography 09/09/16 0000 Signed Impressions: Service Date/Time: August 16:02 - CONCLUSION: 1. Moderate to severe smooth narrowing of the left common carotid artery and also moderate narrowing of the proximal right common carotid artery as well as narrowing of both proximal vertebral arteries likely related to recent hanging. Etiology could be related to vasospasm or recent extrinsic prolonged compression. The distal internal carotid arteries and vertebral artery have more normal calibers. Findings called to Dr. Bhatt at the time of dictation. Gideon Brown MD Cervical Spine MRI 09/09/16 0000 Signed Impressions: Service Date/Time: August 16:02 - CONCLUSION: 1. Very minimal degenerative disc disease at C5-6. 2. No acute fracture or prevertebral soft tissue swelling. 3. No focal cervical cord abnormality. Tray Santiago MD Brain MRI 09/09/16 0000 Signed Impressions: Service Date/Time: August 16:02 - CONCLUSION: 1. Diffuse FLAIR-weighted hyperintensities involving the caudate nuclei bilaterally, bilateral hummel radiata, as well as the bilateral parietal and occipital cortex consistent with the patient's clinical diagnosis of anoxic encephalopathy. 2. No acute hemorrhage, midline shift, extra-axial fluid collection or abnormal enhancement. 3. Small fluid level within the right sphenoid sinus. Tray Santiago MD Cervical Spine CT 09/07/16 1800 Signed Impressions: Service Date/Time: Wednesday, September 07, 2016 18:06 - CONCLUSION: 1. No fracture or subluxation. 2. Scattered groundglass nodules throughout the upper lobes, nonspecific but can be seen with hypersensitivity pneumonitis. Artem Madera MD Last Impressions Liver Ultrasound 09/18/16 Signed Impressions: Service Date/Time: Sunday, September 18, 2016 09:27 - CONCLUSION: 1. There is sludge within the gallbladder. No other findings are present to indicate acute cholecystitis. 2. Mild splenomegaly. Miller Lee MD Chest X-Ray 09/18/16 Signed Impressions: Service Date/Time: Sunday, September 18, 2016 05:01 - CONCLUSION: 1. Right perihilar edema versus pneumonia. There has been no significant change when compared to the prior exam. 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 This is nonocclusive. A retrievable IVC filter was deployed below the main hepatic veins but it was necessary to cross an accessory right hepatic vein. Jose Armadno Jackson Jr., MD Head CT 09/12/16 Signed Impressions: Service Date/Time: Monday, September 12, 2016 09:29 - CONCLUSION: Mild loss of lemos matter definition that can be seen with increasing intracranial pressure. Ricki Cavazos MD FACR Neck Magnetic Resonance Angiography 09/09/16 Signed Impressions: Service Date/Time: August 16:02 - CONCLUSION: 1. Moderate to severe smooth narrowing of the left common carotid artery and also moderate narrowing of the proximal right common carotid artery as well as narrowing of both proximal vertebral arteries likely related to recent hanging. Etiology could be related to vasospasm or recent extrinsic prolonged compression. The distal internal carotid arteries and vertebral artery have more normal calibers. Findings called to Dr. Bhatt at the time of dictation. Gideon Brown MD Cervical Spine MRI 09/09/16 Signed Impressions: Service Date/Time: August 16:02 - CONCLUSION: 1. Very minimal degenerative disc disease at C5-6. 2. No acute fracture or prevertebral soft tissue swelling. 3. No focal cervical cord abnormality. Tray Santiago MD Brain MRI 7/27/17 0000 Signed Impressions: Service Date/Time: August 16:02 - CONCLUSION: 1. Diffuse FLAIR-weighted hyperintensities involving the caudate nuclei bilaterally, bilateral hummel radiata, as well as the bilateral parietal and occipital cortex consistent with the patient's clinical diagnosis of anoxic encephalopathy. 2. No acute hemorrhage, midline shift, extra-axial fluid collection or abnormal enhancement. 3. Small fluid level within the right sphenoid sinus. Tray Santiago MD Cervical Spine CT 09/07/16 1800 Signed Impressions: Service Date/Time: Wednesday, September 07, 2016 18:06 - CONCLUSION: 1. No fracture or subluxation. 2. Scattered groundglass nodules throughout the upper lobes, nonspecific but can be seen with hypersensitivity pneumonitis. Artem Madera MD Last Impressions Liver Ultrasound 09/12/16 Signed Impressions: Service Date/Time: Monday, September 12, 2016 16:15 - CONCLUSION: 1. 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 2. Pericholecystic fluid and gallbladder wall thickening raising the possibility of cholecystitis. A hepatobiliary scan may be helpful to confirm cystic duct obstruction if clinically indicated. 3. Gallbladder sludge. 4. Ascites. 5. Bilateral pleural effusions. 6. Mild hepatomegaly. 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 This is nonocclusive. A retrievable IVC filter was deployed below the main hepatic veins but it was necessary to cross an accessory right hepatic vein. Jose Armando Jackson Jr., MD Head CT 09/12/16 Signed Impressions: Service Date/Time: Monday, September 12, 2016 09:29 - CONCLUSION: Mild loss of lemos matter definition that can be seen with increasing intracranial pressure. Ricki Cavazos MD FACR Neck Magnetic Resonance Angiography 09/09/16 0000 Signed Impressions: Service Date/Time: August 16:02 - CONCLUSION: 1. Moderate to severe smooth narrowing of the left common carotid artery and also moderate narrowing of the proximal right common carotid artery as well as narrowing of both proximal vertebral arteries likely related to recent hanging. Etiology could be related to vasospasm or recent extrinsic prolonged compression. The distal internal carotid arteries and vertebral artery have more normal calibers. Findings called to Dr. Bhatt at the time of dictation. Gideon Brown MD Cervical Spine MRI 09/09/16 0000 Signed Impressions: Service Date/Time: August 16:02 - CONCLUSION: 1. Very minimal degenerative disc disease at C5-6. 2. No acute fracture or prevertebral soft tissue swelling. 3. No focal cervical cord abnormality. Tray Santiago MD Brain MRI 09/09/16 0000 Signed Impressions: Service Date/Time: August 16:02 - CONCLUSION: 1. Diffuse FLAIR-weighted hyperintensities involving the caudate nuclei bilaterally, bilateral hummel radiata, as well as the bilateral parietal and occipital cortex consistent with the patient's clinical diagnosis of anoxic encephalopathy. 2. No acute hemorrhage, midline shift, extra-axial fluid collection or abnormal enhancement. 3. Small fluid level within the right sphenoid sinus. Tray Santiago MD Cervical Spine CT 09/07/16 1800 Signed Impressions: Service Date/Time: Wednesday, September 07, 2016 18:06 - CONCLUSION: 1. No fracture or subluxation. 2. Scattered groundglass nodules throughout the upper lobes, nonspecific but can be seen with hypersensitivity pneumonitis. Artem Madera MD Last Impressions Chest X-Ray 09/13/16 0600 Signed Impressions: Service Date/Time: Tuesday, September 13, 2016 04:49 - CONCLUSION: 1. Hazy opacity in both lungs without significant change. This may represent pulmonary edema which may be noncardiogenic. 2. Artifact projected over the right suprahilar region limiting visualization. Seth Breen MD Liver Ultrasound 09/12/16 0000 Signed Impressions: Service Date/Time: Monday, September 12, 2016 16:15 - CONCLUSION: 1. 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 2. Pericholecystic fluid and gallbladder wall thickening raising the possibility of cholecystitis. A hepatobiliary scan may be helpful to confirm cystic duct obstruction if clinically indicated. 3. Gallbladder sludge. 4. Ascites. 5. Bilateral pleural effusions. 6. Mild hepatomegaly. 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 This is nonocclusive. A retrievable IVC filter was deployed below the main hepatic veins but it was necessary to cross an accessory right hepatic vein. Jose Armando Jackson Jr., MD Head CT 09/12/16 0000 Signed Impressions: Service Date/Time: Monday, September 12, 2016 09:29 - CONCLUSION: Mild loss of lemos matter definition that can be seen with increasing intracranial pressure. Ricki Cavazos MD FACR Neck Magnetic Resonance Angiography 09/09/16 0000 Signed Impressions: Service Date/Time: August 16:02 - CONCLUSION: 1. Moderate to severe smooth narrowing of the left common carotid artery and also moderate narrowing of the proximal right common carotid artery as well as narrowing of both proximal vertebral arteries likely related to recent hanging. Etiology could be related to vasospasm or recent extrinsic prolonged compression. The distal internal carotid arteries and vertebral artery have more normal calibers. Findings called to Dr. Bhatt at the time of dictation. Gideon Brown MD Cervical Spine MRI 09/09/16 0000 Signed Impressions: Service Date/Time: August 16:02 - CONCLUSION: 1. Very minimal degenerative disc disease at C5-6. 2. No acute fracture or prevertebral soft tissue swelling. 3. No focal cervical cord abnormality. Tray Santiago MD Brain MRI 09/09/16 0000 Signed Impressions: Service Date/Time: August 16:02 - CONCLUSION: 1. Diffuse FLAIR-weighted hyperintensities involving the caudate nuclei bilaterally, bilateral hummel radiata, as well as the bilateral parietal and occipital cortex consistent with the patient's clinical diagnosis of anoxic encephalopathy. 2. No acute hemorrhage, midline shift, extra-axial fluid collection or abnormal enhancement. 3. Small fluid level within the right sphenoid sinus. Tray Santiago MD Cervical Spine CT 09/07/16 1800 Signed Impressions: Service Date/Time: Wednesday, September 07, 2016 18:06 - CONCLUSION: 1. No fracture or subluxation. 2. Scattered groundglass nodules throughout the upper lobes, nonspecific but can be seen with hypersensitivity pneumonitis. Artem Madera MD Last Impressions Chest X-Ray 09/13/16 0600 Signed Impressions: Service Date/Time: Tuesday, September 13, 2016 04:49 - CONCLUSION: 1. Hazy opacity in both lungs without significant change. This may represent pulmonary edema which may be noncardiogenic. 2. Artifact projected over the right suprahilar region limiting visualization. Seth Breen MD Liver Ultrasound 09/12/16 0000 Signed Impressions: Service Date/Time: Monday, September 12, 2016 16:15 - CONCLUSION: 1. 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 2. Pericholecystic fluid and gallbladder wall thickening raising the possibility of cholecystitis. A hepatobiliary scan may be helpful to confirm cystic duct obstruction if clinically indicated. 3. Gallbladder sludge. 4. Ascites. 5. Bilateral pleural effusions. 6. Mild hepatomegaly. 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 This is nonocclusive. A retrievable IVC filter was deployed below the main hepatic veins but it was necessary to cross an accessory right hepatic vein. Jose Armando Jackson Jr., MD Head CT 09/12/16 0000 Signed Impressions: Service Date/Time: Monday, September 12, 2016 09:29 - CONCLUSION: Mild loss of lemos matter definition that can be seen with increasing intracranial pressure. Ricki Cavazos MD FACR Neck Magnetic Resonance Angiography 09/09/16 0000 Signed Impressions: Service Date/Time: August 16:02 - CONCLUSION: 1. Moderate to severe smooth narrowing of the left common carotid artery and also moderate narrowing of the proximal right common carotid artery as well as narrowing of both proximal vertebral arteries likely related to recent hanging. Etiology could be related to vasospasm or recent extrinsic prolonged compression. The distal internal carotid arteries and vertebral artery have more normal calibers. Findings called to Dr. Bhatt at the time of dictation. Gideon Brown MD Cervical Spine MRI 09/09/16 0000 Signed Impressions: Service Date/Time: August 16:02 - CONCLUSION: 1. Very minimal degenerative disc disease at C5-6. 2. No acute fracture or prevertebral soft tissue swelling. 3. No focal cervical cord abnormality. Tray Santiago MD Brain MRI 09/09/16 0000 Signed Impressions: Service Date/Time: August 16:02 - CONCLUSION: 1. Diffuse FLAIR-weighted hyperintensities involving the caudate nuclei bilaterally, bilateral hummel radiata, as well as the bilateral parietal and occipital cortex consistent with the patient's clinical diagnosis of anoxic encephalopathy. 2. No acute hemorrhage, midline shift, extra-axial fluid collection or abnormal enhancement. 3. Small fluid level within the right sphenoid sinus. Tray Santiago MD Cervical Spine CT 09/07/16 1800 Signed Impressions: Service Date/Time: Wednesday, September 07, 2016 18:06 - CONCLUSION: 1. No fracture or subluxation. 2. Scattered groundglass nodules throughout the upper lobes, nonspecific but can be seen with hypersensitivity pneumonitis. Artem Madera MD Attending Statement Neuro. Continue neuro checks. 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 Pulmonary. Continue mechanical ventilation. Unable to wean. Continue aggressive pulmonary toilette, nasotracheal suction, and breathing treatments with nebulizers. Nutrition. Status post PEG yesterday Renal. Continue to monitor closely urine output, BUN and creatinine Endocrine. Continue to Monitor serial Acu checks and SSI as needed in detail ID. continue IV antibiotics for staph aereus. Leukopenia, resolved Thrombocytopenia consumptive-resovled IVC filter placed 09/12 due to inability to anticoagulate Continue Protonix for stress ulcer prophylaxis Continue [place] hose and SCD's for DVT prophylaxis Jomar José MD Sep 21, 2016 15:17
--- NOTE | 2016-09-21 17:39 | HHI.GIFU ---
Subjective Remarks Pt on vent. Per RN tolerating TF. up to 30 ml/hr Objective Vitals I&O Vital Signs Date Time Temp Pulse Resp B/P Pulse Ox O2 Delivery O2 Flow Rate FiO2 09/21/16 16:00 97.8 09/21/16 16:00 97.8 101 28 161/89 98 09/21/16 16:00 100 09/21/16 14:00 102 09/21/16 12:00 115 09/21/16 12:00 98.0 09/21/16 12:00 98.0 91 23 130/86 93 09/21/16 10:00 115 09/21/16 08:15 95 T-piece 7.00 40 09/21/16 08:00 98.4 09/21/16 08:00 98.4 96 27 139/89 97 09/21/16 08:00 115 09/21/16 07:54 97 35 09/21/16 06:00 106 09/21/16 04:20 100 40 09/21/16 04:00 40 09/21/16 04:00 100 09/21/16 04:00 99.9 104 21 146/64 100 09/21/16 04:00 98.1 09/21/16 02:00 96 09/21/16 00:58 100 40 09/21/16 00:00 99.5 120 19 147/88 98 09/21/16 00:00 40 09/21/16 00:00 120 09/20/16 22:00 104 09/20/16 21:11 96 40 09/20/16 20:00 40 09/20/16 20:00 110 09/20/16 20:00 98.1 110 22 138/71 100 09/20/16 20:00 98.1 09/20/16 18:00 115 I/O 09/20/16 09/20/16 09/20/16 09/21/16 09/21/16 09/21/16 07:00 15:00 23:00 07:00 15:00 23:00 Intake Total 340 ml 395 ml 166 ml 267 ml 355 ml Balance 340 ml 395 ml 166 ml 267 ml 355 ml Intake IV Total 340 ml 395 ml 86 ml 267 ml 355 ml Other 80 ml # Voids 3 4 2 4 3 # Bowel Movements 1 1 3 1 # Sanitary Pads 0 Pads 0 Pads 0 Pads 0 Pads 0 Pads 0 Pads 0 Pads 0 Pads Laboratory Laboratory Tests Test 09/21/16 09/21/16 03:52 10:30 White Blood Count 8.5 Red Blood Count 3.84 Hemoglobin 10.5 Hematocrit 31.6 Mean Corpuscular Volume 82.2 Mean Corpuscular Hemoglobin 27.3 Mean Corpuscular Hemoglobin 33.2 Concent Red Cell Distribution Width 14.8 Platelet Count 467 Mean Platelet Volume 7.5 Sodium Level 136 Potassium Level 6.0 4.1 Chloride Level 102 Carbon Dioxide Level 24.7 Anion Gap 9 Blood Urea Nitrogen 12 Creatinine 0.39 Estimat Glomerular Filtration 212 Rate Random Glucose 79 Calcium Level 8.5 Date/Time Procedure Status Source Growth 09/17/16 07:23 Aerobic Blood Culture - Preliminary Resulted Blood Peripheral NO GROWTH IN 4 DAYS 09/17/16 07:23 Anaerobic Blood Culture - Preliminary Resulted Blood Peripheral NO GROWTH IN 4 DAYS 09/17/16 06:15 Gram Stain - Final Complete Sputum Endotracheal 09/17/16 06:15 Sputum Culture - Final Complete Staphylococcus Aureus Imaging Last Impressions Liver Ultrasound 09/18/16 0000 Signed Impressions: Service Date/Time: Sunday, September 18, 2016 09:27 - CONCLUSION: 1. There is sludge within the gallbladder. No other findings are present to indicate acute cholecystitis. 2. Mild splenomegaly. Miller Lee MD Chest X-Ray 09/18/16 0000 Signed Impressions: Service Date/Time: Sunday, September 18, 2016 05:01 - CONCLUSION: 1. Right perihilar edema versus pneumonia. There has been no significant change when compared to the prior exam. 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 This is nonocclusive. A retrievable IVC filter was deployed below the main hepatic veins but it was necessary to cross an accessory right hepatic vein. Jose Armando Jackson Jr., MD Head CT 09/12/16 0000 Signed Impressions: Service Date/Time: Monday, September 12, 2016 09:29 - CONCLUSION: Mild loss of lemos matter definition that can be seen with increasing intracranial pressure. Ricki Cavazos MD FACR Neck Magnetic Resonance Angiography 09/09/16 0000 Signed Impressions: Service Date/Time: August 16:02 - CONCLUSION: 1. Moderate to severe smooth narrowing of the left common carotid artery and also moderate narrowing of the proximal right common carotid artery as well as narrowing of both proximal vertebral arteries likely related to recent hanging. Etiology could be related to vasospasm or recent extrinsic prolonged compression. The distal internal carotid arteries and vertebral artery have more normal calibers. Findings called to Dr. Bhatt at the time of dictation. Gideon Brown MD Cervical Spine MRI 09/09/16 0000 Signed Impressions: Service Date/Time: August 16:02 - CONCLUSION: 1. Very minimal degenerative disc disease at C5-6. 2. No acute fracture or prevertebral soft tissue swelling. 3. No focal cervical cord abnormality. Tray Santiago MD Brain MRI 09/09/16 0000 Signed Impressions: Service Date/Time: August 16:02 - CONCLUSION: 1. Diffuse FLAIR-weighted hyperintensities involving the caudate nuclei bilaterally, bilateral hummel radiata, as well as the bilateral parietal and occipital cortex consistent with the patient's clinical diagnosis of anoxic encephalopathy. 2. No acute hemorrhage, midline shift, extra-axial fluid collection or abnormal enhancement. 3. Small fluid level within the right sphenoid sinus. Tray Santiago MD Cervical Spine CT 09/07/16 1800 Signed Impressions: Service Date/Time: Wednesday, September 07, 2016 18:06 - CONCLUSION: 1. No fracture or subluxation. 2. Scattered groundglass nodules throughout the upper lobes, nonspecific but can be seen with hypersensitivity pneumonitis. Artem Madera MD Physical Exam HEENT: normocephalic; atraumatic; no jaundice. trach CHEST: coarse CARDIAC: RRR ABDOMEN: Soft, nondistended, nontender; no hepatosplenomegaly; bowel sounds are present in all four quadrants. PEG site no redness or swelling EXTREMITIES: No clubbing, cyanosis, or edema. SKIN: Normal; no rash; no jaundice. YARDAGE CALLER: In coma Assessment and Plan Plan ASSESSMENT - dysphagia - need for chcf mechanical ventilation, s/p trach. GI consulted for PEG placement - severe anoxic brain injury, acute hypoxemic respiratory failure, per [facility] EGD normal. PEG tube placed. PLAN - TF per dietary - supportive care - GI will sign off, please reconsult if needed This pt seen by myself and Dr Mobley and this note is written on his behalf. Mary Maynard Sep 21, 2016 17:39
[2016-09-22] VITALS (14 sets, daily range): BP systolic 118–163; BP diastolic 64–91; PULSE 97–106; RESP 24–28; TEMP 97.6–99.6; O2SAT 8–100
[2016-09-22] MEDS: clonazePAM 1 MG TAB PO SCH ×3 (02:13→16:43)
[2016-09-22] MEDS: CHLORHEXIDINE GLUCONATE 2 % 1 PACK (2 CLOTHS) TOP SCH (04:00)
[2016-09-22 04:40] LABS: HEMATOCRIT 28.1 % (35.0-46.0); MEAN CELL VOLUME 81.7 FL (80.0-100.0); MEAN CORPUSCULAR HEMOGLOBIN 27.8 PG (27.0-34.0); MEAN CORPUSCULAR HGB CONC 34.1 % (32.0-36.0); PLATELET COUNT 636 TH/MM3 (150-450); RED BLOOD COUNT 3.44 MIL/MM3 (4.00-5.30); RED CELL DISTRIBUTION WIDTH 14.6 % (11.6-17.2); REVIEW FLAG FINAL; WHITE BLOOD COUNT 6.5 TH/MM3 (4.0-11.0)
[2016-09-22 05:06] LABS: BICARBONATE 28.1 MEQ/L (21.0-32.0); POTASSIUM 3.3 MEQ/L (3.5-5.1)
[2016-09-22] MEDS: FONDAPARINUX SODIUM 7.5 MG/0.6 ML SYRINGE SQ SCH (05:15)
[2016-09-22] MEDS: PROPRANOLOL HCL 20 MG TAB PO SCH ×3 (05:53→16:43)
[2016-09-22] MEDS: LORazepam 2 MG/ML VIAL IV PRN ×4 (06:14→22:32)
[2016-09-22] MEDS: DOCUSATE SODIUM 100 MG/10 ML UDC PO SCH ×2 (08:17→21:00)
[2016-09-22] MEDS: LACTULOSE SYRUP 20 GM/30 ML CUP PO SCH ×4 (08:17→21:00)
[2016-09-22] MEDS: ceFAZolin 2 GM PREMIX 50 ML IV SCH ×2 (08:17→16:43)
[2016-09-22] MEDS: POTASSIUM CHLORIDE 25 MEQ EFFERVESCENT TAB PO SCH (08:17)
[2016-09-22] MEDS: BISACODYL 10 MG SUPP RECTAL SCH (08:18)
[2016-09-22] MEDS: ARTIFICIAL TEARS OPTH SOLN 15 ML BTL EACH EYE SCH ×2 (08:18→21:00)
[2016-09-22] MEDS: PANTOPRAZOLE SOD 40 MG DELAYED RELEASE TAB PO SCH (08:19)
[2016-09-22 08:35] LABS: STAT YES
[2016-09-22] MEDS: levETIRAcetam 1000 MG INJ 100 ML IV SCH ×2 (08:56→22:27)
[2016-09-22] MEDS: SODIUM CHLORIDE 1 GRAM TAB PO SCH ×2 (08:56→16:43)
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
--- NOTE | 2016-09-22 14:00 | HHI.CCPN ---
Subjective Remarks/Hospital Course 19 years old was brought in as a trauma alert. He has had to hanged herself and was found by her roommate. Unknown time of hanging. When fire department arrived patient was in asystole. CPR was started and one round of meds were given as per ACLS protocol. There was return of spontaneous circulation soon after that. Patient was brought in getting breaths by BV. She had a blood pressure and half way to arriving to the ER she started having some spontaneous respirations. She continued to be a GCS 3 when she arrived. She is admitted to critical care unit and therapeutic hypothermia protocol is initiated. SUBJ 09/08/16: Patient achieving target temperature but developing severe shock. Levothroid had been increased to 30 mcg/m Mehdi-Synephrine added. Additional fluid boluses ordered currently on bicarbonate infusion additional one amp of bicarbonate given. Chest x-ray shows severe aspiration pneumonitis predominantly right lower lobe infiltrates. Zosyn 4.5 GM IV q8 started, give single dose of vanc 09/09/16: Patient is in the rewarming phase of hypothermia protocol. Once sedation was lightened and taken off the Nimbex, patient started developing tonic-clonic generalized seizure like activity. Bolused with a total of 6 mg Ativan in divided doses and restarted on Versed and propofol infusions. Loaded with Cerebyx 1 g and scheduled at 100 mg every 8 hours. Stat EEG pending. Neurology following 09/10/16: Remains on high dose of vasopressors, MRI brain shows evidence of anoxic brain injury. MRA neck bilateral common carotid narrowing. Start on aspirin get vascular surgery consult. No further seizure-like episodes noted. Pupils are equal bilaterally with slight withdrawal of right lower extremity to central pain. 09/11/16: Currently remains off all sedation in process. No noticeable improvement in neuro status, slight withdrawal x4. Aspirin started for bilateral common carotid narrowing-vascular surgery consult appreciated. Continue Cerebyx EEG sharp activity on eeg. MRI indicates diffuse anoxic brain injury with poor prognosis. EEG bihemispheric slowing and intermittent right central posterior sharp discharges which appear to be epileptiform. Dilantin level is therapeutic 09/12/16: Overnight had episodes myoclonus versus seizures. Neuro exam remains poor. No significant improvement. Low grade fever. Remains tachypneic on the ventilator. Restart propofol for vent synchrony 09/13/16: Neuro exam remains unchanged overnight. ICP monitor placed 09/12 for cerebral edema- ICP controlled with hyperosmolar therapy. 2 episodes of seizures vs myoclonus reported. Repeat EEG today. IVC filter placed 09/12/16 evening for large IVC thrombus. Unable to anticoagulate due to thrombocytopenia , cerebral edema-high risk of bleeding 09/14 EEG yesterday showed severe encephalopathy. ICP mainly 10-13 but intermittently spiked up to max of 22, improved with propofol bolus. Myoclonus noted with any tactile stimulation. 09/15 Comatose with myoclonus. ICP intermittently increased to 20, sometimes drifts down without intervention, sometimes improves with sedation. Extensor posturing. 09/16 Off continuous sedation. Comatose with myoclonus. Corneal reflex present on left, absent on right. ICP monitor removed today per NSG. 09/17: no significant neurologic improvement. off sedation. only intermittent ativan for myoclonus which improves symptoms. family meeting today, and family requests aggressive care, including trach/peg. 09/18: No change in neuro exam. Continued to spike high temperatures up to 102.5. CBC pending. I will discontinue Cerebyx start Keppra, check gallbladder ultrasound again and placed on empiric cefepime and single dose of vancomycin. Sputum culture Gram stain shows few GPC. On cooling blanket, and Tylenol. Motrin added. s/p Trach yesterday 09/19: no improvements or changes. sodium trending down. repeat sputum culture 09/17 growing staph aureus. KP pending. 09/20: No change in neuro exam. Overnight spike fever 103 again. Patient has bloody secretion from bilateral nares-she may have some acute sinusitis. Continue broad-spectrum antibiotics. Discontinue NG tube as the patient is getting PEG today Subjective: 09/21: PEG yesterday. no changes. sputum again growing MSSA. 09/22: Colonization, no pneumonia. Objective Vital Signs Date Time Temp Pulse Resp B/P Pulse Ox O2 Delivery O2 Flow Rate FiO2 09/22/16 12:00 106 09/22/16 12:00 99.6 25 141/91 98 09/22/16 07:53 T-piece 40 09/21/16 20:25 6.00 Intake and Output 09/21/16 09/21/16 09/22/16 08:00 16:00 00:00 Intake Total 267 ml 355 ml 1413 ml Balance 267 ml 355 ml 1413 ml Result Diagram: 09/22/16 0420 09/22/16 0420 Imaging Last [address] 09/07/16 1800 Signed Impressions: Service Date/Time: Wednesday, September 07, 2016 18:06 - CONCLUSION: Normal examination. Artem Madera MD Chest X-Ray 09/07/16 1800 Signed Impressions: Service Date/Time: Wednesday, September 07, 2016 17:49 - CONCLUSION: Subtle densities in the upper lobes. Otherwise unremarkable chest. Artem Madera MD ADDENDUM: See above. Artem Madera MD Cervical Spine CT 09/07/16 1800 Signed Impressions: Service Date/Time: Wednesday, September 07, 2016 18:06 - CONCLUSION: 1. No fracture or subluxation. 2. Scattered groundglass nodules throughout the upper lobes, nonspecific but can be seen with hypersensitivity pneumonitis. Artem Madera MD Objective Remarks GENERAL: young female, lying in bed. trached Comatose SKIN: Warm and dry. HEAD: Normocephalic. Pupils are 4 mm reactive to 3 mm bilaterally. EYES: No scleral icterus. No injection or drainage. NECK: trachea midline. No JVD. trach in place. CARDIOVASCULAR: Tachycardic rhythm. No murmurs. RESPIRATORY: unlabored. equal chest rise. GASTROINTESTINAL: Abdomen soft, non-tender, distended. MUSCULOSKELETAL: No cyanosis, 1+ edema. NEURO: trached. off sedation except intermittent ativan/fentanyl. Pupils are 4 mm reactive to 3 mm bilaterally. Slight corneal reflex present on the left, absent on the right. No cough or gag. Disconjugate gaze. No spontaneous eye opening. General myoclonic movements on stimulation. To deep central and peripheral noxious stimuli patient showing extensor posturing A/P Assessment and Plan Assessment: 20yF s/p hanging event and s/p cardiac arrest with severe anoxic injury. family continues to want aggressive care. Status post tracheostomy , PEG 8/7. will work towards weaning to trach collar as tolerated. narrow spectrum of abx from cefepime to ancef for MSSA recurrent in the sputum. A/P NEURO: Severe anoxic brain injury Bilateral common carotid narrowing Attempted suicide by hanging Seizure Depression - MRI shows evidence of diffuse anoxic brain injury. MRA neck bilateral common carotid narrowing-vascular surgery consulted, no intervention. started aspirin - CT 09/12-loss salguero/white matter differentiation c/w cerebral edema. ICP monitor placed 09/12 , removed 09/16. - EEG 09/10 bilateral sharp activity, on Dilantin. Level therapeutic 09/12. DC Dilantin 09/18/16 due high fever, started Keppra - EEG 09/11 Encephalopathy, no sz. - EEG 09/13severe encephalopathy. (delta waves) - s/p induced hypothermia. - Neurology Dr. Wong following. He states prognosis is poor and recommended comfort measures. - NSG Dr. José states poor prognosis, recommends comfort care. - Toxicology negative - Ativan for symptomatic control for severe myoclonus. - Oxycodone for pain. Fentanyl prn CV: Shock resolved Status postcardiac arrest - Off Levophed which was used to maintain CPP Resp: Acute hypoxemic respiratory failure Pre-hospital Aspiration pneumonitis Acute lung injury - Intubated for hypoxemic respiratory failure from pre hospital aspiration - PRVC, ventilator bundle. DuoNeb every 6 hours and when necessary - Daily SBTs - Patient has evidence of aspiration on admission as indicated by right lower lobe infiltrate - s/p trach 09/17/16. Vijay Jackson and Kunal - daily trach collar trials. will attempt to wean fio2 < 28% in order to facilitate placement. GI: Transaminitis most likely from shock, resolved. Hyponatremia - Tube feedings Jevity 1.5 at 50 L per hour per nutrition recommendations. - s/p PEG 09/20 - repeat GB u/s without signs of cholecystitis 09/18 - Continue salt tabs 3gm po q8hr. - Had bowel and after mag citrate was given. - Liver ultrasound 09/12large nonocclusive thrombus and IVC. Renal: Acute kidney injury- resolved. Fluid overload- persistent. - monitor BUN/creatinine - anton removed and voiding on own. ID: Septic, neurogenic shock-resolved Aspiration pneumonia, prehospital High fever Sputum with MSSA 09/08. - Zosyn 4.5 g IV every 6 hours 09/08-09/15 .fever may be secondary to DVT. Off vancomycin. - Fever up to 103 GPC on sputum MSSA. Vancomycin 1 g IV 1. - sputum culture 09/17 staph aureus. de-escalate to Ancef 2gm iv q8h, total 10 day course of abx for recurrent MSSA pna. Endo: - Electrolyte replacement per protocol - Sliding-scale insulin if needed HEME: Leukopenia, resolved Thrombocytopenia consumptive-resovled Large IVC thrombus - Monitor CBC CMP coags. - IVC filter placed 09/12 due to inability to anticoagulate (thrombocytopenia) and cerebral edema - This was discussed with hematology Dr. Kwok and neurologist surgeon Dr. Davenport - Now platelets improved, Arixtra 7.5 mg daily from 09/18/16. 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 KP pending. given how difficult lab draws are for patient, would prefer Lovenox as opposed to coumadin, so will leave on Arixtra until KP comes back. may be forced to coumadinize. DVT GI prophylaxis - IVC filter in place. Continue po ppi.Arixtra started 09/18/16 Lines: - Right femoral cooling catheter and right brachial arterial line placed by Dr. England-DC both. L subclavian central line 09/10/16 -09/17 Findings of status myoclonus, persistent coma with extensor posturing vs absent motor response are consistent with poor prognosis for functional neurologic recovery. MRI demonstrates evidence of anoxic injury. Discussed with family poor prognosis and would expect her to require trach/PEG and be dependent for ADL in nursing facility. 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 She states that she "already had suffered plenty from her depression and psychological demons". However, after full and detailed conversation with Dr. Bragg and the palliative care team, they now want to pursue tracheostomy/PEG tube placement, and give her at least a few more weeks to attempt to improve. Congruent with family wishes, trach placed on 09/17/16. PEG 09/20. CM to look for placement. No change in neuro status. Gary Syed MD Sep 22, 2016 14:00
--- NOTE | 2016-09-22 18:52 | HHI.NSPN ---
Note Status Status: Progress Note Interval History Diagnosis anoxic encephalopathy Interval History The patient has a 20-year-old female brought in as a Trauma Alert. She was found hanging from a pull-up bar. She was in asystole at the scene, treated with epinephrine and regained a pressure after that. Initially she was unresponsive. GCS was 3. The patient has been unresponsive. There has been no seizure activity at present. 09/13. No clinical improvement. Comatose. Myoclonic jerks 09/14 has not shown any clinical improvement 09/15. Remains intubated and comatose without improvement 09/17. no significant neurologic improvement. off sedation. only intermittent ativan for myoclonus 09/18. No change in neuro exam. Continued to spike high temperatures up to 102.5. Will discontinue Cerebyx start Keppra. Obtain gallbladder ultrasound. Start empiric cefepime and vancomycin. S/p Trach yesterday 09/19. No neuro changes. no improvements or changes. sodium trending down. repeat sputum culture 09/17 growing staph aureus 09/20. Overnight fevers to 103 again. No neurological improvement. She has bloody secretion from bilateral nares, suspected acute sinusitis. Continue broad- spectrum antibiotics. She is getting a PEG today 09/21. Status post PEG yesterday. no changes. sputum again growing MSSA. Ventilated. No changes. PEG functional Labs, Micro, & Vital Signs Results Date Time Temp Pulse Resp B/P Pulse Ox O2 Delivery O2 Flow Rate FiO2 09/22/16 16:00 98.8 103 28 163/83 8 09/22/16 16:00 103 09/22/16 14:00 101 09/22/16 12:00 106 09/22/16 12:00 99.6 106 25 141/91 98 09/22/16 10:00 104 09/22/16 08:00 99.3 102 24 138/67 97 09/22/16 08:00 102 09/22/16 07:53 95 T-piece 40 09/22/16 06:00 98 09/22/16 04:00 98.0 100 25 126/66 95 09/22/16 04:00 104 09/22/16 04:00 98.0 09/22/16 03:42 26 09/22/16 02:00 104 09/22/16 00:00 97.6 09/22/16 00:00 98 09/22/16 00:00 98.0 104 24 118/64 97 09/21/16 22:00 104 09/21/16 20:25 96 T-piece 6.00 40 09/21/16 20:00 97.9 98 30 117/77 98 09/21/16 20:00 97.6 09/21/16 20:00 98 09/22/16 07:00 Intake Total 2269 ml Balance 2269 ml Constitutional Vital Signs Date Time Temp Pulse Resp B/P Pulse Ox O2 Delivery O2 Flow Rate FiO2 09/22/16 16:00 98.8 103 28 163/83 8 09/22/16 16:00 103 09/22/16 14:00 101 09/22/16 12:00 106 09/22/16 12:00 99.6 106 25 141/91 98 09/22/16 10:00 104 09/22/16 08:00 99.3 102 24 138/67 97 09/22/16 08:00 102 09/22/16 07:53 95 T-piece 40 09/22/16 06:00 98 09/22/16 04:00 98.0 100 25 126/66 95 09/22/16 04:00 104 09/22/16 04:00 98.0 09/22/16 03:42 26 09/22/16 02:00 104 09/22/16 00:00 97.6 09/22/16 00:00 98 09/22/16 00:00 98.0 104 24 118/64 97 09/21/16 22:00 104 09/21/16 20:25 96 T-piece 6.00 40 09/21/16 20:00 97.9 98 30 117/77 98 09/21/16 20:00 97.6 09/21/16 20:00 98 09/22/16 07:00 Intake Total 2269 ml Balance 2269 ml Review of Systems/Exam Exam She is intubated and sedated. No response to pain. General myoclonic movements on stimulation, off sedation except intermittent ativan/fentanyl. GCS 4 Cranial Nerves: Pupils 2mm, non-reactive to light. Pupils are 4 mm reactive to 3 mm bilaterally. Slight corneal reflex present on the left, absent on the right. No cough or gag. Disconjugate gaze. No spontaneous eye opening. Face musculature appeared symmetrical at rest. Face sensation, olfaction, visual phillips, and hearing cannot be adequately assessed due to his neurological condition. The patient has a corneal reflex. SHe has no gag reflex. The sternocleidomastoid and trapezius are symmetrical. Cervical Spine: Her neck is soft, supple, without nuchal rigidity. Motor: Extension response to pain Reflexes: Deep tendon reflexes are trace in the biceps, triceps, and brachioradialis, bilaterally, in the upper extremities. In the lower extremities, the patellar and ankles TRACE. There is a bilateral silent response to plantar stim. There is no clonus Sensory: On examination there is extension response to painful stimuli Cerebellar: Examination cannot be adequately assessed due to the patient's neurological condition. Medications Current Medications Current Medications Etomidate 40 mg 40 mg STK-MED ONCE .ROUTE ; Start 09/07/16 at 17:53; Stop at 17:54; Status DC Propofol (Diprivan 1000 Mg/100ml Inj) 100 ml @ As Directed STK-MED ONCE .ROUTE ; Start 09/07/16 at 18:14; Stop 09/07/16 at 18:15; Status DC Succinylcholine Chloride 200 mg 200 mg STK-MED ONCE .ROUTE ; Start 09/07/16 at 18:38; Stop 09/07/16 at 18:39; Status DC Sodium Chloride (NS 1000 ml Inj) 1,000 ml @ 100 mls/hr Q10H IV Last administered on 09/07/16t 19:30; Start 09/07/16 at 19:30; Stop 09/08/16 at 03:31 ; Status DC Sodium Chloride (NS Flush) 2 ml UNSCH PRN IV FLUSH FLUSH AFTER USING IV ACCESS ; Start 09/07/16 at 18:45; Stop 09/12/16 at 17:55; Status DC Enalaprilat (Vasotec Inj) 1.25 mg Q8H PRN IV SBP>180, DBP>95; Start 09/07/16 at 18:45; Stop 09/17/16 at 13:35; Status DC Ondansetron HCl (Zofran Inj) 4 mg Q6H PRN IV NAUSEA OR VOMITING; Start at 18:45 Pantoprazole Sodium (Protonix Inj) 40 mg Q24H IVP Last administered on 20:45; Start 09/07/16 at 20:00; Stop 09/17/16 at 13:35; Status DC Docusate Sodium (Colace) 100 mg BID PO Last administered on 09/09/16 21:33; Start 09/07/16 at 21:00; Stop 09/10/16 at 09:20; Status DC Magnesium Hydroxide (Milk Of Magnesia Liq) 30 ml Q6H PRN PO CONSTIPATION; Start 09/07/16 at 18:45 Miscellaneous Information 1 [id number] Last administered on 09/07/16 18:45; Start 09/07/16 at 18:45 Chlorhexidine Gluconate (Chlorhexidine 2% Cloth) Taper DAILY@04 TOP Last administered on 09/22/16 04:00; Start 09/08/16 at 04:00; Stop 09/04/17 at 03:59 Chlorhexidine Gluconate 3 pack 3 pack UNSCH PRN TOP HYGIENIC CARE; Start at 18:45 Propofol 100 ml @ As Directed STK-MED ONCE .ROUTE Last administered on 01:42; Start 09/07/16 at 19:20; Stop 09/07/16 at 19:21; Status DC Midazolam HCl (Versed 100 Mg/ ml Inj) 100 ml @ 0 mls/hr TITRATE IV Last administered on 09/07/16 21:33; Start 09/07/16 at 21:30; Stop 09/11/16 at 11:27 ; Status DC Lorazepam 1 mg 1 mg Q1H PRN IV SEIZURES Last administered on 09/22/16 14:28; Start 09/07/16 at 22:00 Midazolam HCl 100 ml @ 0 mls/hr TITRATE IV ; Start 09/07/16 at 22:00; Stop 09/07 at 22:00; Status DC Miscellaneous Information ml @ 0 mls/hr UNSCH IV ; Start 09/07/16 at 22:00 Sodium Chloride (NS Flush) 2 ml UNSCH PRN IV FLUSH FLUSH AFTER USING IV ACCESS Last administered on 09/19/16 19:58; Start 09/07/16 at 22:00 Sodium Chloride 2 ml 2 ml UNSCH PRN IV FLUSH IV FLUSH; Start 09/07/16 at 22:00 Sodium Chloride (NS 1000 ml Inj) 1,000 ml @ 2,000 mls/hr Q30M IV Last administered on 09/08/16 00:23; Start 09/07/16 at 22:00; Stop 09/07/16 at 22:59 ; Status DC Artificial Tears 1 applic 1 applic Q4H PRN EACH EYE SEE LABEL COMMENTS Last administered on 09/17/16 08:00; Start 09/07/16 at 22:00 Cisatracurium Besylate 100 mg/ Sodium Chloride 250 ml @ 0 mls/hr TITRATE PRN IV ONLY IF SHIVERING Last administered on 09/08/16 08:21; Start 09/07/16 at 21: 30; Stop 09/09/16 at 07:48; Status DC Norepinephrine Bitartrate 4 mg/ Sodium Chloride 250 ml @ 0 mls/hr TITRATE IV ; Start 09/07/16 at 21:30; Stop 09/08/16 at 12:56; Status DC Sodium Chloride 2,000 ml @ 0 mls/hr NOW IV ; Start 09/07/16 at 23:00; Stop at 23:56; Status DC Potassium Chloride 100 ml @ 50 mls/hr Q2H PRN IV For Potassium 2.8 - 3.2 mEq/ L Last administered on 09/13/16 09:02; Start 09/08/16 at 00:30 Potassium Chloride (KCl 20 Meq Premix Inj) 100 ml @ 50 mls/hr Q2H PRN IV For Potassium 2.8 - 3.2 mEq/L Last administered on 09/08/16 18:20; Start 09/08/16 at 00:30 Potassium Bicarb/ Potassium Chloride 50 meq 50 meq UNSCH PRN PO For Potassium 3.3 - 3.5 mEq/L; Start 09/08/16 at 00:30 Potassium Chloride 100 ml @ 25 mls/hr UNSCH PRN IV For Potassium 3.3 - 3.5 mEq /L Last administered on 09/15/16 04:38; Start 09/08/16 at 00:30 Potassium Chloride 100 ml @ 50 mls/hr Q2H PRN IV For Potassium 3.3 - 3.5 mEq/ L Last administered on 09/14/16 18:35; Start 09/08/16 at 00:30 Magnesium Sulfate/ Sodium Chloride (Magnesium Sulfate Inj/NS Inj) 100 ml @ 50 mls/hr UNSCH PRN IV For Magnesium 0.9 - 1.1 mg/dL; Start 09/08/16 at 00:30 Magnesium Oxide 800 mg 800 mg UNSCH PRN PO For Magnesium 1.2 - 1.6 mg/dL; Start 09/08/16 at 00:30 Magnesium Sulfate/ Sodium Chloride (Magnesium Sulfate Inj/NS Inj) 100 ml @ 50 mls/hr UNSCH PRN IV For Magnesium 1.2 - 1.6 mg/dL Last administered on 07:11; Start 09/08/16 at 00:30 Potassium Phosphate 2000 mg 2,000 mg Q4H PRN PO For Phosphorus < 2.5 mg/dL; Start 09/08/16 at 00:30 Sodium Phosphate/ Sodium Chloride (Sodium Phosphate Inj/NS 250 ml Inj) 250 ml @ 42 mls/hr UNSCH PRN IV For Phosphorus < 2.5 mg/dL; Start 09/08/16 at 00:30 Potassium Phosphate 2000 mg 2,000 mg UNSCH PRN PO/TUBE SEE LABEL COMMENTS; Start 09/08/16 at 00:30 Potassium Phosphate 30 mmol/ Sodium Chloride 260 ml @ 42 mls/hr UNSCH PRN IV SEE LABEL COMMENTS; Start 09/08/16 at 00:30 Propofol 100 ml @ As Directed STK-MED ONCE .ROUTE ; Start 09/08/16 at 01:36; Stop 09/08/16 at 01:37; Status DC Propofol (Diprivan 1000 Mg/100ml Inj) 100 ml @ 0 mls/hr TITRATE IV Last administered on 09/16/16 11:59; Start 09/08/16 at 02:00 Vecuronium [place] 10 mg 10 mg STK-MED ONCE .ROUTE ; Start 09/08/16 at 02:33; Stop 09/08/16 at 02:34; Status DC Sodium Chloride (NS 1000 ml Inj) 1,000 ml @ 0 mls/hr NOW IV Last administered on 09/08/16 02:44; Start 09/08/16 at 02:45; Stop 09/08/16 at 03:20; Status DC Vecuronium [place] 10 mg 10 mg NOW IV Last administered on 09/08/16 02:43; Start 09/08/16 at 02:35; Stop 09/08/16 at 02:46; Status DC Sodium Bicarbonate 150 meq/Dextrose 1,150 ml @ 100 mls/hr [id number] IV Last administered on 09/08/16 03:53; Start 09/08/16 at 04:00; Stop 09/08/16 at 12:56 ; Status DC Fentanyl Citrate (fentaNYL DRIP) 250 ml @ 0 mls/hr TITRATE IV Last administered on 09/08/16 05:06; Start 09/08/16 at 05:00; Stop 09/11/16 at 11:27 ; Status DC Phenylephrine HCl (Neosynephrine Inj) 10 mg STK-MED ONCE .ROUTE ; Start at 07:00; Stop 09/08/16 at 07:02; Status DC Phenylephrine HCl 10 mg 10 mg STK-MED ONCE .ROUTE ; Start 09/08/16 at 07:06; Stop 09/08/16 at 07:07; Status DC Piperacillin Sod/ Tazobactam Sod (Zosyn 4.5 Gm Premix) 100 ml @ 200 mls/hr Q6H IV Last administered on 09/16/16 02:36; Start 09/08/16 at 08:00; Stop 09/16/16 at 06:00; Status DC Terbutaline Sulfate 1 mg 1 mg UNSCH PRN SQ For Extravasation; Start 09/08/16 at 07:30; Stop 09/08/16 at 13:02; Status DC Phenylephrine HCl 160 mg/Dextrose 500 ml @ 0 mls/hr TITRATE IV ; Start 09/08/16 at 07:30; Stop 09/08/16 at 12:57; Status DC Sodium Chloride (NS 1000 ml Inj) 1,000 ml @ 999 mls/hr BOLUS ONCE IV Last administered on 09/08/16 07:30; Start 09/08/16 at 07:30; Stop 09/08/16 at 08:30 ; Status DC Albumin Human 25 gm 25 gm ONCE ONCE IV Last administered on 09/08/16 08:05; Start 09/08/16 at 08:00; Stop 09/08/16 at 08:01; Status DC Vancomycin HCl 1000 mg/Sodium Chloride 250 ml @ 250 mls/hr ONCE ONCE IV Last administered on 09/08/16 09:01; Start 09/08/16 at 08:30; Stop 09/08/16 at 09:29 ; Status DC Sodium Bicarbonate (Sodium Bicarbonate 8.4% Inj) 50 ml @ As Directed STK-MED ONCE .ROUTE ; Start 09/08/16 at 08:49; Stop 09/08/16 at 08:50; Status DC Sodium Bicarbonate 100 meq 100 meq STAT ONCE IV Last administered on 09:00; Start 09/08/16 at 11:00; Stop 09/08/16 at 11:01; Status DC Norepinephrine Bitartrate/Sodium Chloride (Levophed Inj/NS 250 ml Inj) 250 ml @ 0 mls/hr TITRATE IV Last administered on 09/09/16 17:54; Start 09/08/16 at 13: 00; Stop 09/09/16 at 11:11; Status DC Terbutaline Sulfate 1 mg 1 mg UNSCH PRN SQ For Extravasation; Start 09/08/16 at 13:00; Stop 09/09/16 at 17:47; Status DC Sodium Bicarbonate 150 meq/Sterile Water 1,150 ml @ 150 mls/hr Q7H40M IV Last administered on 09/09/16 05:26; Start 09/08/16 at 15:00; Stop 09/09/16 at 07:47 ; Status DC Sodium Chloride 1,000 ml @ 0 mls/hr BOLUS ONCE IV Last administered on 14:00; Start 09/08/16 at 14:15; Stop 09/08/16 at 14:16; Status DC Sodium Chloride 1,000 ml @ 0 mls/hr BOLUS ONCE IV ; Start 09/08/16 at 14:30; Stop 09/08/16 at 14:31; Status Cancel Sodium Chloride (NS 1000 ml Inj) 1,000 ml @ 999 mls/hr BOLUS ONCE IV Last administered on 09/08/16 18:00; Start 09/08/16 at 18:00; Stop 09/08/16 at 19:00 ; Status DC Lorazepam (Ativan Inj) 2 mg STK-MED ONCE .ROUTE ; Start 09/09/16 at 06:53; Stop 09/09/16 at 06:54; Status DC Lorazepam (Ativan Inj) 4 mg STK-MED ONCE .ROUTE ; Start 09/09/16 at 06:57; Stop 09/09/16 at 06:58; Status DC Phenylephrine HCl (Neosynephrine Inj) 40 mg STK-MED ONCE .ROUTE ; Start at 07:33; Stop 09/09/16 at 07:34; Status DC Phenylephrine HCl 40 mg 40 mg STK-MED ONCE .ROUTE ; Start 09/09/16 at 07:34; Stop 09/09/16 at 07:35; Status DC Fosphenytoin Sodium/Sodium Chloride (Cerebyx Inj/NS Inj) 70 ml @ 280 mls/hr ONCE ONCE IV Last administered on 09/09/16 08:15; Start 09/09/16 at 09:00; Stop 09/09/16 at 09:14; Status DC Fosphenytoin Sodium (Cerebyx Inj) 100 mgpe Q8HR IV Last administered on 23:34; Start 09/09/16 at 14:00; Stop 09/18/16 at 04:56; Status DC Lorazepam 6 mg 6 mg ONCE ONCE IV Last administered on 09/09/16 07:00; Start 09/09/16 at 08:00; Stop 09/09/16 at 08:01; Status DC Phenylephrine HCl/ Dextrose (Neosynephrine Inj/D5W 500 ml Inj) 500 ml @ 0 mls/ hr TITRATE IV ; Start 09/09/16 at 09:45; Stop 09/09/16 at 09:45; Status DC Terbutaline Sulfate 1 mg 1 mg UNSCH PRN SQ FOR EXTRAVASATION PROTOCOL; Start at 09:45; Stop 09/13/16 at 08:38; Status DC Phenylephrine HCl 40 mg/Sodium Chloride 500 ml @ 0 mls/hr TITRATE IV Last administered on 09/09/16 17:55; Start 09/09/16 at 09:45; Stop 09/09/16 at 17:47 ; Status DC Vancomycin HCl 1000 mg/Sodium Chloride 250 ml @ 250 mls/hr ONCE ONCE IV Last administered on 09/09/16 11:23; Start 09/09/16 at 10:45; Stop 09/09/16 at 11:44 ; Status DC Pharmacy Profile Note 0 ml @ 0 mls/hr UNSCH OTHER ; Start 09/09/16 at 10:45; Stop 09/13/16 at 08:39; Status DC Norepinephrine Bitartrate 4 mg/ Sodium Chloride 250 ml @ 0 mls/hr TITRATE IV Last administered on 09/09/16 15:33; Start 09/09/16 at 11:15; Stop 09/09/16 at 17:47; Status DC Vancomycin HCl/ Sodium Chloride (Vancomycin Inj/ NS 250 ml Inj) 250 ml @ 250 mls/hr Q8H IV Last administered on 09/11/16 05:52; Start 09/09/16 at 20:00; Stop 09/11/16 at 12:58; Status DC Miscellaneous Information SPECIFIC LAB TO BE DRAWN:VANCOMYCIN TROUGH DATE TO... ONCE ONCE .XX Last administered on 09/10/16 11:27; Start 09/10/16 at 11:45; Stop 09/10/16 at 11:46; Status DC Sodium Chloride (NS 1000 ml Inj) 1,000 ml @ 999 mls/hr Q1H1M IV Last administered on 09/09/16 11:00; Start 09/09/16 at 11:45; Stop 09/09/16 at 13:45 ; Status DC Gadodiamide 20 ml 20 ml STK-MED ONCE IV Last administered on 09/09/16 16:39; Start 09/09/16 at 16:39; Stop 09/09/16 at 16:40; Status DC Phenylephrine HCl/ Dextrose (Neosynephrine Inj/D5W 500 ml Inj) 500 ml @ 0 mls/ hr TITRATE IV ; Start 09/09/16 at 18:00; Stop 09/09/16 at 18:00; Status DC Terbutaline Sulfate 1 mg 1 mg UNSCH PRN SQ FOR EXTRAVASATION PROTOCOL; Start at 18:00; Stop 09/13/16 at 08:38; Status DC Norepinephrine Bitartrate 16 mg/ Dextrose 250 ml @ 0 mls/hr TITRATE IV ; Start 09/09/16 at 18:00; Stop 09/09/16 at 18:00; Status DC Phenylephrine HCl 160 mg/Sodium Chloride 500 ml @ 0 mls/hr TITRATE IV Last administered on 09/10/16 04:52; Start 09/09/16 at 18:00; Stop 09/11/16 at 11:27 ; Status DC Norepinephrine Bitartrate/Sodium Chloride (Levophed Inj/NS 250 ml Inj) 250 ml @ 0 mls/hr TITRATE IV Last administered on 09/10/16 04:52; Start 09/09/16 at 18: 00; Stop 09/13/16 at 08:39; Status DC Aspirin (Aspirin Chew) 81 mg DAILY CHEW Last administered on 09/13/16 10:09; Start 09/10/16 at 09:00; Status Hold Artificial Tears (Tears Naturale Opth Soln) 1 drop BID EACH EYE Last administered on 09/22/16 08:18; Start 09/10/16 at 21:00 Docusate Sodium (Colace Liq) 100 mg BID PO Last administered on 09/22/16 08:17 ; Start 09/10/16 at 21:00 Midazolam HCl (Versed Inj) 5 mg STK-MED ONCE .ROUTE ; Start 09/10/16 at 09:43; Stop 09/10/16 at 09:44; Status DC Acetaminophen (Tylenol 650 Mg/ 20 ml Liq) 650 mg NOW ONCE PO Last administered on 09/10/16 11:19; Start 09/10/16 at 10:30; Stop 09/10/16 at 10:31 ; Status DC Dextrose (D50w (Syr) Inj) 50 ml STK-MED ONCE .ROUTE ; Start 09/10/16 at 12:49; Stop 09/10/16 at 12:50; Status DC Dextrose (D50w (Syr) Inj) 50 ml NOW ONCE IV PUSH Last administered on 12:45; Start 09/10/16 at 13:30; Stop 09/10/16 at 13:31; Status DC Miscellaneous Information SPECIFIC LAB TO BE DRAWN:VANCOMYCIN TROUGH DATE TO... ONCE ONCE .XX Last administered on 09/11/16 11:45; Start 09/11/16 at 11:45; Stop 09/11/16 at 11:46; Status DC Midazolam HCl (Versed Inj) 3 mg ONCE ONCE IV PUSH Last administered on 09:44; Start 09/10/16 at 14:15; Stop 09/10/16 at 14:16; Status DC Dextrose 50 ml 50 ml NOW ONCE IV PUSH Last administered on 09/10/16 16:09; Start 09/10/16 at 16:00; Stop 09/10/16 at 16:34; Status DC Sodium Chloride (NS 1000 ml Inj) 1,000 ml @ 100 mls/hr Q10H IV Last administered on 09/15/16 13:20; Start 09/11/16 at 12:00; Stop 09/15/16 at 19:09; Status DC Propranolol HCl (Inderal) 20 mg Q8HR PO Last administered on 09/12/16 04:44; Start 09/11/16 at 14:00; Stop 09/12/16 at 17:13; Status DC Magnesium Citrate (Citroma Liq) 300 ml ONCE ONCE NG ; Start 09/12/16 at 09:00; Stop 09/12/16 at 09:01; Status DC Lactulose 30 ml 30 ml QID PO Last administered on 09/22/16 16:43; Start at 09:00 Vancomycin HCl/ Sodium Chloride (Vancomycin Inj/ NS 250 ml Inj) 250 ml @ 250 mls/hr Q12H IV Last administered on 09/12/16 21:29; Start 09/12/16 at 10:00; Stop 09/13/16 at 08:39; Status DC Miscellaneous Information SPECIFIC LAB TO BE ... ONCE ONCE .XX ; Start at 09:45; Stop 09/14/16 at 09:45; Status DC Furosemide (Lasix Inj) 20 mg ONCE ONCE IV PUSH Last administered on 09/12/16 12:04; Start 09/12/16 at 09:30; Stop 09/12/16 at 09:31; Status DC Mannitol 12.5 gm 12.5 gm Q8H IV Last administered on 09/12/16 15:37; Start at 14:00; Stop 09/12/16 at 21:51; Status DC Sodium Chloride 188 meq/Sodium Chloride 1,047 ml @ 20 mls/hr Q24H IV Last administered on 09/14/16 19:49; Start 09/12/16 at 16:00; Stop 09/16/16 at 15:33; Status DC Norepinephrine Bitartrate (Levophed-Dextrose Drip) 250 ml @ 0 mls/hr TITRATE IV Last administered on 09/16/16 05:37; Start 09/12/16 at 18:00; Stop 09/16/16 at 08:02; Status DC Terbutaline Sulfate (Brethine Inj) 1 mg UNSCH PRN SQ For Extravasation; Start 09/12/16 at 18:00; Stop 09/16/16 at 08:02; Status DC Iohexol (Omnipaque 350 Inj) 30 ml STK-MED ONCE IV Last administered on 21:02; Start 09/12/16 at 21:02; Stop 09/12/16 at 21:03; Status DC Mannitol (Mannitol Inj) 12.5 gm Q8H IV Last administered on 09/16/16 06:56; Start 09/12/16 at 23:00; Stop 09/17/16 at 04:13; Status DC Potassium Bicarb/ Potassium Chloride (K-Lyte Cl Eff) 25 meq DAILY PO Last administered on 09/22/16 08:17; Start 09/13/16 at 09:00 Magnesium Citrate (Citroma Liq) 300 ml ONCE ONCE PO ; Start 09/13/16 at 08:30; Stop 09/13/16 at 08:41; Status DC Bisacodyl (Dulcolax Supp) 10 mg DAILY RECTAL Last administered on 09/13/16 10: 09; Start 09/13/16 at 09:00 Oxycodone HCl (Roxicodone) 5 mg Q6H OG-TUBE Last administered on 09/22/16 14:28 ; Start 09/14/16 at 20:00 Fentanyl Citrate (fentaNYL INJ) 100 mcg ONCE ONCE IV PUSH ; Start 09/14/16 at 20 :00; Stop 09/14/16 at 20:01; Status DC Fentanyl Citrate (fentaNYL INJ) 50 mcg Q1H PRN IV PUSH PAIN, ICP >20 Last administered on 09/21/16 18:09; Start 09/14/16 at 19:00 Acetaminophen 650 mg 650 mg Q4H PRN PO FEVER Last administered on 09/19/16 10: 21; Start 09/15/16 at 20:30 Norepinephrine Bitartrate/Sodium Chloride (Levophed Inj/NS 250 ml Inj) 250 ml @ 0 mls/hr TITRATE IV Last administered on 09/16/16 09:11; Start 09/16/16 at 08:15 ; Stop 09/16/16 at 15:33; Status DC Terbutaline Sulfate (Brethine Inj) 1 mg UNSCH PRN SQ For Extravasation; Start 09/16/16 at 08:15; Stop 09/17/16 at 13:35; Status DC Pantoprazole Sodium (Protonix) 40 mg DAILY PO ; Start 09/18/16 at 09:00 Furosemide (Lasix Inj) 20 mg ONCE ONCE IV PUSH Last administered on 09/17/16 14:30; Start 09/17/16 at 13:30; Stop 09/17/16 at 13:42; Status DC Cisatracurium Besylate (Nimbex Inj) 20 mg ONCE ONCE IV Last administered on 14:30; Start 09/17/16 at 13:30; Stop 09/17/16 at 13:43; Status DC Midazolam HCl (Versed Inj) 10 mg ONCE ONCE IV PUSH Last administered on 14:53; Start 09/17/16 at 13:30; Stop 09/17/16 at 13:44; Status DC Fentanyl Citrate 250 mcg 250 mcg ONCE ONCE IV PUSH Last administered on 13:30; Start 09/17/16 at 13:30; Stop 09/17/16 at 13:42; Status DC Cefazolin Sodium/ Sodium Chloride (Ancef Inj/NS Inj) 100 ml @ 200 mls/hr [employer] IV ; Start 09/20/16 at 16:00; Stop 09/23/16 at 15:59 Clonazepam (KlonoPIN) 1 mg Q8H PO Last administered on 09/22/16 16:43; Start at 18:00 Lorazepam (Ativan Inj) 3 mg NOW IV Last administered on 09/18/16 04:04; Start 09/18/16 at 04:00; Stop 09/18/16 at 05:20; Status DC Acetaminophen (Ofirmev Inj) 1,000 mg NOW IV Last administered on 09/18/16 04:03 ; Start 09/18/16 at 04:00; Stop 09/18/16 at 05:20; Status DC Ibuprofen 600 mg 600 mg Q6H PRN PO fever >100.5 Last administered on 09/18/16 20:48; Start 09/18/16 at 04:15; Stop 09/18/16 at 20:55; Status DC Levetriacetam 100 ml @ 400 mls/hr Q12HR IV Last administered on 09/22/16 08:56 ; Start 09/18/16 at 09:00 Cefepime HCl 2000 mg/Sodium Chloride 100 ml @ 200 mls/hr Q8H IV ; Start at 05:00; Stop 09/18/16 at 05:18; Status DC Vancomycin HCl/ Sodium Chloride (Vancomycin Inj/ NS 250 ml Inj) 250 ml @ 250 mls/hr ONCE ONCE IV Last administered on 09/18/16 08:40; Start 09/18/16 at 05: 00; Stop 09/18/16 at 05:59; Status DC Lorazepam 3 mg 3 mg NOW IV Last administered on 09/18/16 05:19; Start 09/18/16 at 05:30; Stop 09/18/16 at 06:30; Status DC Cefepime HCl/ Sodium Chloride (Maxipime Inj/NS Inj) 100 ml @ 200 mls/hr Q8H IV Last administered on 09/21/16 05:57; Start 09/18/16 at 06:00; Stop 09/21/16 at 08:02; Status DC Fondaparinux (Arixtra Inj) 7.5 mg Q24H SQ Last administered on 09/22/16 05:15; Start 09/18/16 at 06:00 Propranolol HCl 20 mg 20 mg Q6HR PO Last administered on 09/22/16 16:43; Start 09/18/16 at 06:45 Sodium Chloride/ Sodium Chloride (Sodium Chloride 23.4% Inj/NS 1000 ml Inj) 1, 047 ml @ 20 mls/hr Q24H IV Last administered on 09/18/16 19:50; Start 09/18/16 at 20:00; Stop 09/19/16 at 07:57; Status DC Ibuprofen (Motrin Liq) 600 mg Q6H PRN PO FEVER > 100.5 Last administered on 09/19 14:20; Start 09/18/16 at 21:00 Sodium Chloride (Sodium Chloride) 3 gm Q8H PO Last administered on 09/22/16 16: 43; Start 09/19/16 at 08:00 Acetaminophen (Ofirmev Inj) 1,000 mg UNSCH X1 IV Last administered on 22:52; Start 09/19/16 at 22:15; Stop 09/19/16 at 23:45; Status DC Propofol 300 mg 300 mg STK-MED ONCE IV ; Start 09/20/16 at 15:16; Stop 09/20/16 at 16:16; Status DC Cefazolin Sodium/ Dextrose (Ancef 2 Gm Premix) 50 ml @ 100 mls/hr Q8H IV Last administered on 09/22/16 16:43; Start 09/21/16 at 08:00; Stop 09/27/16 at 07:59 Medical Decision Making MDM Remarks Last Impressions Liver Ultrasound 09/18/16 0000 Signed Impressions: Service Date/Time: Sunday, September 18, 2016 09:27 - CONCLUSION: 1. There is sludge within the gallbladder. No other findings are present to indicate acute cholecystitis. 2. Mild splenomegaly. Miller Lee MD Chest X-Ray 09/18/16 0000 Signed Impressions: Service Date/Time: Sunday, September 18, 2016 05:01 - CONCLUSION: 1. Right perihilar edema versus pneumonia. There has been no significant change when compared to the prior exam. 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 This is nonocclusive. A retrievable IVC filter was deployed below the main hepatic veins but it was necessary to cross an accessory right hepatic vein. Jose Armando Jackson Jr., MD Head CT 09/12/16 0000 Signed Impressions: Service Date/Time: Monday, September 12, 2016 09:29 - CONCLUSION: Mild loss of lemos matter definition that can be seen with increasing intracranial pressure. Ricki Cavazos MD FACR Neck Magnetic Resonance Angiography 09/09/16 0000 Signed Impressions: Service Date/Time: August 16:02 - CONCLUSION: 1. Moderate to severe smooth narrowing of the left common carotid artery and also moderate narrowing of the proximal right common carotid artery as well as narrowing of both proximal vertebral arteries likely related to recent hanging. Etiology could be related to vasospasm or recent extrinsic prolonged compression. The distal internal carotid arteries and vertebral artery have more normal calibers. Findings called to Dr. Bhatt at the time of dictation. Gideon Brown MD Cervical Spine MRI 09/09/16 0000 Signed Impressions: Service Date/Time: August 16:02 - CONCLUSION: 1. Very minimal degenerative disc disease at C5-6. 2. No acute fracture or prevertebral soft tissue swelling. 3. No focal cervical cord abnormality. Tray Santiago MD Brain MRI 09/09/16 0000 Signed Impressions: Service Date/Time: August 16:02 - CONCLUSION: 1. Diffuse FLAIR-weighted hyperintensities involving the caudate nuclei bilaterally, bilateral hummel radiata, as well as the bilateral parietal and occipital cortex consistent with the patient's clinical diagnosis of anoxic encephalopathy. 2. No acute hemorrhage, midline shift, extra-axial fluid collection or abnormal enhancement. 3. Small fluid level within the right sphenoid sinus. Tray Santiago MD Cervical Spine CT 09/07/16 1800 Signed Impressions: Service Date/Time: Wednesday, September 07, 2016 18:06 - CONCLUSION: 1. No fracture or subluxation. 2. Scattered groundglass nodules throughout the upper lobes, nonspecific but can be seen with hypersensitivity pneumonitis. Artem Madera MD Last Impressions Liver Ultrasound 09/18/16 0000 Signed Impressions: Service Date/Time: Sunday, September 18, 2016 09:27 - CONCLUSION: 1. There is sludge within the gallbladder. No other findings are present to indicate acute cholecystitis. 2. Mild splenomegaly. Miller Lee MD Chest X-Ray 09/18/16 0000 Signed Impressions: Service Date/Time: Sunday, September 18, 2016 05:01 - CONCLUSION: 1. Right perihilar edema versus pneumonia. There has been no significant change when compared to the prior exam. 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 This is nonocclusive. A retrievable IVC filter was deployed below the main hepatic veins but it was necessary to cross an accessory right hepatic vein. Jose Armando Jackson Jr., MD Head CT 09/12/16 0000 Signed Impressions: Service Date/Time: Monday, September 12, 2016 09:29 - CONCLUSION: Mild loss of lemos matter definition that can be seen with increasing intracranial pressure. Ricki Cavazos MD FACR Neck Magnetic Resonance Angiography 09/09/16 0000 Signed Impressions: Service Date/Time: August 16:02 - CONCLUSION: 1. Moderate to severe smooth narrowing of the left common carotid artery and also moderate narrowing of the proximal right common carotid artery as well as narrowing of both proximal vertebral arteries likely related to recent hanging. Etiology could be related to vasospasm or recent extrinsic prolonged compression. The distal internal carotid arteries and vertebral artery have more normal calibers. Findings called to Dr. Bhatt at the time of dictation. Gideon Brown MD Cervical Spine MRI 09/09/16 0000 Signed Impressions: Service Date/Time: August 16:02 - CONCLUSION: 1. Very minimal degenerative disc disease at C5-6. 2. No acute fracture or prevertebral soft tissue swelling. 3. No focal cervical cord abnormality. Tray Santiago MD Brain MRI 09/09/16 0000 Signed Impressions: Service Date/Time: August 16:02 - CONCLUSION: 1. Diffuse FLAIR-weighted hyperintensities involving the caudate nuclei bilaterally, bilateral hummel radiata, as well as the bilateral parietal and occipital cortex consistent with the patient's clinical diagnosis of anoxic encephalopathy. 2. No acute hemorrhage, midline shift, extra-axial fluid collection or abnormal enhancement. 3. Small fluid level within the right sphenoid sinus. Tray Santiago MD Cervical Spine CT 09/07/16 1800 Signed Impressions: Service Date/Time: Wednesday, September 07, 2016 18:06 - CONCLUSION: 1. No fracture or subluxation. 2. Scattered groundglass nodules throughout the upper lobes, nonspecific but can be seen with hypersensitivity pneumonitis. Artem Madera MD Last Impressions Liver Ultrasound 09/18/16 0000 Signed Impressions: Service Date/Time: Sunday, September 18, 2016 09:27 - CONCLUSION: 1. There is sludge within the gallbladder. No other findings are present to indicate acute cholecystitis. 2. Mild splenomegaly. Miller Lee MD Chest X-Ray 09/18/16 0000 Signed Impressions: Service Date/Time: Sunday, September 18, 2016 05:01 - CONCLUSION: 1. Right perihilar edema versus pneumonia. There has been no significant change when compared to the prior exam. 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 This is nonocclusive. A retrievable IVC filter was deployed below the main hepatic veins but it was necessary to cross an accessory right hepatic vein. Jose Armando Jackson Jr., MD Head CT 09/12/16 Signed Impressions: Service Date/Time: Monday, September 12, 2016 09:29 - CONCLUSION: Mild loss of lemos matter definition that can be seen with increasing intracranial pressure. Ricki Cavazos MD FACR Neck Magnetic Resonance Angiography 09/09/16 Signed Impressions: Service Date/Time: August 16:02 - CONCLUSION: 1. Moderate to severe smooth narrowing of the left common carotid artery and also moderate narrowing of the proximal right common carotid artery as well as narrowing of both proximal vertebral arteries likely related to recent hanging. Etiology could be related to vasospasm or recent extrinsic prolonged compression. The distal internal carotid arteries and vertebral artery have more normal calibers. Findings called to Dr. Bhatt at the time of dictation. Gideon Brown MD Cervical Spine MRI 09/09/16 0000 Signed Impressions: Service Date/Time: August 16:02 - CONCLUSION: 1. Very minimal degenerative disc disease at C5-6. 2. No acute fracture or prevertebral soft tissue swelling. 3. No focal cervical cord abnormality. Tray Santiago MD Brain MRI 09/09/16 0000 Signed Impressions: Service Date/Time: August 16:02 - CONCLUSION: 1. Diffuse FLAIR-weighted hyperintensities involving the caudate nuclei bilaterally, bilateral hummel radiata, as well as the bilateral parietal and occipital cortex consistent with the patient's clinical diagnosis of anoxic encephalopathy. 2. No acute hemorrhage, midline shift, extra-axial fluid collection or abnormal enhancement. 3. Small fluid level within the right sphenoid sinus. Tray Santiago MD Cervical Spine CT 09/07/16 1800 Signed Impressions: Service Date/Time: Wednesday, September 07, 2016 18:06 - CONCLUSION: 1. No fracture or subluxation. 2. Scattered groundglass nodules throughout the upper lobes, nonspecific but can be seen with hypersensitivity pneumonitis. Artem Madera MD Last Impressions Liver Ultrasound 09/18/16 0000 Signed Impressions: Service Date/Time: Sunday, September 18, 2016 09:27 - CONCLUSION: 1. There is sludge within the gallbladder. No other findings are present to indicate acute cholecystitis. 2. Mild splenomegaly. Miller Lee MD Chest X-Ray 09/18/16 0000 Signed Impressions: Service Date/Time: Sunday, September 18, 2016 05:01 - CONCLUSION: 1. Right perihilar edema versus pneumonia. There has been no significant change when compared to the prior exam. 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 This is nonocclusive. A retrievable IVC filter was deployed below the main hepatic veins but it was necessary to cross an accessory right hepatic vein. Jose Armando Jackson Jr., MD Head CT 09/12/16 0000 Signed Impressions: Service Date/Time: Monday, September 12, 2016 09:29 - CONCLUSION: Mild loss of lemos matter definition that can be seen with increasing intracranial pressure. Ricki Cavazos MD FACR Neck Magnetic Resonance Angiography 09/09/16 0000 Signed Impressions: Service Date/Time: August 16:02 - CONCLUSION: 1. Moderate to severe smooth narrowing of the left common carotid artery and also moderate narrowing of the proximal right common carotid artery as well as narrowing of both proximal vertebral arteries likely related to recent hanging. Etiology could be related to vasospasm or recent extrinsic prolonged compression. The distal internal carotid arteries and vertebral artery have more normal calibers. Findings called to Dr. Bhatt at the time of dictation. Gideon Brown MD Cervical Spine MRI 09/09/16 0000 Signed Impressions: Service Date/Time: August 16:02 - CONCLUSION: 1. Very minimal degenerative disc disease at C5-6. 2. No acute fracture or prevertebral soft tissue swelling. 3. No focal cervical cord abnormality. Tray Santiago MD Brain MRI 09/09/16 0000 Signed Impressions: Service Date/Time: August 16:02 - CONCLUSION: 1. Diffuse FLAIR-weighted hyperintensities involving the caudate nuclei bilaterally, bilateral hummel radiata, as well as the bilateral parietal and occipital cortex consistent with the patient's clinical diagnosis of anoxic encephalopathy. 2. No acute hemorrhage, midline shift, extra-axial fluid collection or abnormal enhancement. 3. Small fluid level within the right sphenoid sinus. Tray Santiago MD Cervical Spine CT 09/07/16 1800 Signed Impressions: Service Date/Time: Wednesday, September 07, 2016 18:06 - CONCLUSION: 1. No fracture or subluxation. 2. Scattered groundglass nodules throughout the upper lobes, nonspecific but can be seen with hypersensitivity pneumonitis. Artem Madera MD Last Impressions Liver Ultrasound 09/12/16 0000 Signed Impressions: Service Date/Time: Monday, September 12, 2016 16:15 - CONCLUSION: 1. 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 2. Pericholecystic fluid and gallbladder wall thickening raising the possibility of cholecystitis. A hepatobiliary scan may be helpful to confirm cystic duct obstruction if clinically indicated. 3. Gallbladder sludge. 4. Ascites. 5. Bilateral pleural effusions. 6. Mild hepatomegaly. 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 This is nonocclusive. A retrievable IVC filter was deployed below the main hepatic veins but it was necessary to cross an accessory right hepatic vein. Jose Armando Jackson Jr., MD Head CT 09/12/16 0000 Signed Impressions: Service Date/Time: Monday, September 12, 2016 09:29 - CONCLUSION: Mild loss of lemos matter definition that can be seen with increasing intracranial pressure. Ricki Cavazos MD FACR Neck Magnetic Resonance Angiography 09/09/16 0000 Signed Impressions: Service Date/Time: August 16:02 - CONCLUSION: 1. Moderate to severe smooth narrowing of the left common carotid artery and also moderate narrowing of the proximal right common carotid artery as well as narrowing of both proximal vertebral arteries likely related to recent hanging. Etiology could be related to vasospasm or recent extrinsic prolonged compression. The distal internal carotid arteries and vertebral artery have more normal calibers. Findings called to Dr. Bhatt at the time of dictation. Gideon Brown MD Cervical Spine MRI 09/09/16 0000 Signed Impressions: Service Date/Time: , September 09, 2016 16:02 - CONCLUSION: 1. Very minimal degenerative disc disease at C5-6. 2. No acute fracture or prevertebral soft tissue swelling. 3. No focal cervical cord abnormality. Tray Santiago MD Brain MRI 09/09/16 0000 Signed Impressions: Service Date/Time: August 16:02 - CONCLUSION: 1. Diffuse FLAIR-weighted hyperintensities involving the caudate nuclei bilaterally, bilateral hummel radiata, as well as the bilateral parietal and occipital cortex consistent with the patient's clinical diagnosis of anoxic encephalopathy. 2. No acute hemorrhage, midline shift, extra-axial fluid collection or abnormal enhancement. 3. Small fluid level within the right sphenoid sinus. Tray Santiago MD Cervical Spine CT 09/07/16 1800 Signed Impressions: Service Date/Time: Wednesday, September 07, 2016 18:06 - CONCLUSION: 1. No fracture or subluxation. 2. Scattered groundglass nodules throughout the upper lobes, nonspecific but can be seen with hypersensitivity pneumonitis. Artem Madera MD Last Impressions Chest X-Ray 09/13/16 0600 Signed Impressions: Service Date/Time: Tuesday, September 13, 2016 04:49 - CONCLUSION: 1. Hazy opacity in both lungs without significant change. This may represent pulmonary edema which may be noncardiogenic. 2. Artifact projected over the right suprahilar region limiting visualization. Seth Breen MD Liver Ultrasound 09/12/16 0000 Signed Impressions: Service Date/Time: Monday, September 12, 2016 16:15 - CONCLUSION: 1. 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 2. Pericholecystic fluid and gallbladder wall thickening raising the possibility of cholecystitis. A hepatobiliary scan may be helpful to confirm cystic duct obstruction if clinically indicated. 3. Gallbladder sludge. 4. Ascites. 5. Bilateral pleural effusions. 6. Mild hepatomegaly. 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 This is nonocclusive. A retrievable IVC filter was deployed below the main hepatic veins but it was necessary to cross an accessory right hepatic vein. Jose Armando Jackson Jr., MD Head CT 09/12/16 Signed Impressions: Service Date/Time: Monday, September 12, 2016 09:29 - CONCLUSION: Mild loss of lemos matter definition that can be seen with increasing intracranial pressure. Ricki Cavazos MD FACR Neck Magnetic Resonance Angiography 09/09/16 Signed Impressions: Service Date/Time: August 16:02 - CONCLUSION: 1. Moderate to severe smooth narrowing of the left common carotid artery and also moderate narrowing of the proximal right common carotid artery as well as narrowing of both proximal vertebral arteries likely related to recent hanging. Etiology could be related to vasospasm or recent extrinsic prolonged compression. The distal internal carotid arteries and vertebral artery have more normal calibers. Findings called to Dr. Bhatt at the time of dictation. Gideon Brown MD Cervical Spine MRI 09/09/16 Signed Impressions: Service Date/Time: August 16:02 - CONCLUSION: 1. Very minimal degenerative disc disease at C5-6. 2. No acute fracture or prevertebral soft tissue swelling. 3. No focal cervical cord abnormality. Tray Santiago MD Brain MRI 09/09/16 Signed Impressions: Service Date/Time: August 16:02 - CONCLUSION: 1. Diffuse FLAIR-weighted hyperintensities involving the caudate nuclei bilaterally, bilateral hummel radiata, as well as the bilateral parietal and occipital cortex consistent with the patient's clinical diagnosis of anoxic encephalopathy. 2. No acute hemorrhage, midline shift, extra-axial fluid collection or abnormal enhancement. 3. Small fluid level within the right sphenoid sinus. Tray Santiago MD Cervical Spine CT 09/07/16 1800 Signed Impressions: Service Date/Time: Wednesday, September 07, 2016 18:06 - CONCLUSION: 1. No fracture or subluxation. 2. Scattered groundglass nodules throughout the upper lobes, nonspecific but can be seen with hypersensitivity pneumonitis. Artem Madera MD Last Impressions Chest X-Ray 09/13/16 0600 Signed Impressions: Service Date/Time: Tuesday, September 13, 2016 04:49 - CONCLUSION: 1. Hazy opacity in both lungs without significant change. This may represent pulmonary edema which may be noncardiogenic. 2. Artifact projected over the right suprahilar region limiting visualization. Seth Breen MD Liver Ultrasound 09/12/16 0000 Signed Impressions: Service Date/Time: Monday, September 12, 2016 16:15 - CONCLUSION: 1. 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 2. Pericholecystic fluid and gallbladder wall thickening raising the possibility of cholecystitis. A hepatobiliary scan may be helpful to confirm cystic duct obstruction if clinically indicated. 3. Gallbladder sludge. 4. Ascites. 5. Bilateral pleural effusions. 6. Mild hepatomegaly. 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 This is nonocclusive. A retrievable IVC filter was deployed below the main hepatic veins but it was necessary to cross an accessory right hepatic vein. Jose Armando Jackson Jr., MD Head CT 09/12/16 0000 Signed Impressions: Service Date/Time: Monday, September 12, 2016 09:29 - CONCLUSION: Mild loss of lemos matter definition that can be seen with increasing intracranial pressure. Ricki Cavazos MD FACR Neck Magnetic Resonance Angiography 09/09/16 0000 Signed Impressions: Service Date/Time: August 16:02 - CONCLUSION: 1. Moderate to severe smooth narrowing of the left common carotid artery and also moderate narrowing of the proximal right common carotid artery as well as narrowing of both proximal vertebral arteries likely related to recent hanging. Etiology could be related to vasospasm or recent extrinsic prolonged compression. The distal internal carotid arteries and vertebral artery have more normal calibers. Findings called to Dr. Bhatt at the time of dictation. Gideon Brown MD Cervical Spine MRI 09/09/16 0000 Signed Impressions: Service Date/Time: August 16:02 - CONCLUSION: 1. Very minimal degenerative disc disease at C5-6. 2. No acute fracture or prevertebral soft tissue swelling. 3. No focal cervical cord abnormality. Tray Santiago MD Brain MRI 09/09/16 0000 Signed Impressions: Service Date/Time: , September 09, 2016 16:02 - CONCLUSION: 1. Diffuse FLAIR-weighted hyperintensities involving the caudate nuclei bilaterally, bilateral hummel radiata, as well as the bilateral parietal and occipital cortex consistent with the patient's clinical diagnosis of anoxic encephalopathy. 2. No acute hemorrhage, midline shift, extra-axial fluid collection or abnormal enhancement. 3. Small fluid level within the right sphenoid sinus. Tray Santiago MD Cervical Spine CT 09/07/16 1800 Signed Impressions: Service Date/Time: Wednesday, September 07, 2016 18:06 - CONCLUSION: 1. No fracture or subluxation. 2. Scattered groundglass nodules throughout the upper lobes, nonspecific but can be seen with hypersensitivity pneumonitis. Artem Madera MD Attending Statement Neuro. Continue neuro checks. 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 Not improving Pulmonary. Continue mechanical ventilation. Unable to wean. Continue aggressive pulmonary toilette, nasotracheal suction, and breathing treatments with nebulizers. Nutrition. Status post PEG. Tube feedings Renal. Continue to monitor closely urine output, BUN and creatinine Endocrine. Continue to Monitor serial Acu checks and SSI as needed in detail ID. continue IV antibiotics for staph aereus. Leukopenia, resolved Thrombocytopenia consumptive-resovled IVC filter placed 09/12 due to inability to anticoagulate Continue Protonix for stress ulcer prophylaxis Continue [place] hose and SCD's for DVT prophylaxis Discharge planning to [facility] MD Sep 22, 2016 18:52
[2016-09-23] VITALS (13 sets, daily range): BP systolic 105–178; BP diastolic 55–90; PULSE 98–104; RESP 28–31; TEMP 97.4–99; O2SAT 95–100
[2016-09-23] MEDS: LORazepam 2 MG/ML VIAL IV PRN ×2 (00:36→11:11)
[2016-09-23] MEDS: SODIUM CHLORIDE 1 GRAM TAB PO SCH ×3 (00:41→16:34)
[2016-09-23] MEDS: PROPRANOLOL HCL 20 MG TAB PO SCH ×4 (00:41→18:27)
[2016-09-23] MEDS: ceFAZolin 2 GM PREMIX 50 ML IV SCH ×3 (00:41→16:34)
[2016-09-23] MEDS: clonazePAM 1 MG TAB PO SCH ×3 (02:37→18:27)
[2016-09-23] MEDS: CHLORHEXIDINE GLUCONATE 2 % 1 PACK (2 CLOTHS) TOP SCH (04:00)
[2016-09-23] MEDS: FONDAPARINUX SODIUM 7.5 MG/0.6 ML SYRINGE SQ SCH (05:33)
[2016-09-23 06:49] LABS: HEMATOCRIT 32.7 % (35.0-46.0); MEAN CELL VOLUME 81.6 FL (80.0-100.0); MEAN CORPUSCULAR HEMOGLOBIN 28.2 PG (27.0-34.0); MEAN CORPUSCULAR HGB CONC 34.5 % (32.0-36.0); PLATELET COUNT 678 TH/MM3 (150-450); RED BLOOD COUNT 4.01 MIL/MM3 (4.00-5.30); RED CELL DISTRIBUTION WIDTH 14.8 % (11.6-17.2); REVIEW FLAG FINAL; WHITE BLOOD COUNT 9.4 TH/MM3 (4.0-11.0)
[2016-09-23 07:20] LABS: BICARBONATE 26.8 MEQ/L (21.0-32.0); POTASSIUM 3.9 MEQ/L (3.5-5.1)
[2016-09-23 07:51] LABS: UFH SEROTONIN RELEASE RESULT NEGATIVE (NEGATIVE)
[2016-09-23] MEDS: LACTULOSE SYRUP 20 GM/30 ML CUP PO SCH ×4 (09:00→20:34)
[2016-09-23] MEDS: PANTOPRAZOLE SOD 40 MG DELAYED RELEASE TAB PO SCH (09:00)
[2016-09-23] MEDS: BISACODYL 10 MG SUPP RECTAL SCH (09:00)
[2016-09-23] MEDS: DOCUSATE SODIUM 100 MG/10 ML UDC PO SCH ×2 (09:00→20:34)
[2016-09-23] MEDS: ARTIFICIAL TEARS OPTH SOLN 15 ML BTL EACH EYE SCH ×2 (09:00→20:30)
[2016-09-23] MEDS: POTASSIUM CHLORIDE 25 MEQ EFFERVESCENT TAB PO SCH (09:01)
[2016-09-23] MEDS: ARTIFICIAL TEARS OPTH OINT 3.5 APPLIC/3.5 GM TUBO EACH EYE PRN (09:06)
--- NOTE | 2016-09-23 10:01 | HHI.NSPN ---
Note Status Status: Progress Note Interval History Diagnosis anoxic encephalopathy Interval History The patient has a 20-year-old female brought in as a Trauma Alert. She was found hanging from a pull-up bar. She was in asystole at the scene, treated with epinephrine and regained a pressure after that. Initially she was unresponsive. GCS was 3. The patient has been unresponsive. There has been no seizure activity at present. 09/13. No clinical improvement. Comatose. Myoclonic jerks 09/14 has not shown any clinical improvement 09/15. Remains intubated and comatose without improvement 09/17. no significant neurologic improvement. off sedation. only intermittent ativan for myoclonus 09/18. No change in neuro exam. Continued to spike high temperatures up to 102.5. Will discontinue Cerebyx start Keppra. Obtain gallbladder ultrasound. Start empiric cefepime and vancomycin. S/p Trach yesterday 09/19. No neuro changes. no improvements or changes. sodium trending down. repeat sputum culture 09/17 growing staph aureus 09/20. Overnight fevers to 103 again. No neurological improvement. She has bloody secretion from bilateral nares, suspected acute sinusitis. Continue broad- spectrum antibiotics. She is getting a PEG today 09/21. Status post PEG yesterday. no changes. sputum again growing MSSA. 09/22 Ventilated. No changes. PEG functional 09/23. No clinical improvement. Discharge planning in progress Labs, Micro, & Vital Signs Results Date Time Temp Pulse Resp B/P Pulse Ox O2 Delivery O2 Flow Rate FiO2 09/23/16 06:00 101 09/23/16 04:00 101 09/23/16 04:00 98.9 101 29 115/65 97 09/23/16 03:35 26 09/23/16 02:00 103 09/23/16 00:28 28 09/23/16 00:00 98.9 99 29 140/59 95 09/23/16 00:00 98 09/22/16 22:00 98 09/22/16 21:10 100 T-piece 35 09/22/16 20:00 97 09/22/16 20:00 98.8 102 26 122/72 100 09/22/16 18:00 97 09/22/16 16:00 98.8 103 28 163/83 8 09/22/16 16:00 103 09/22/16 14:00 101 09/22/16 12:00 106 09/22/16 12:00 99.6 106 25 141/91 98 09/22/16 10:00 104 09/23/16 07:00 Intake Total 1940 ml Balance 1940 ml Constitutional Vital Signs Date Time Temp Pulse Resp B/P Pulse Ox O2 Delivery O2 Flow Rate FiO2 09/23/16 06:00 101 09/23/16 04:00 101 09/23/16 04:00 98.9 101 29 115/65 97 09/23/16 03:35 26 09/23/16 02:00 103 09/23/16 00:28 28 09/23/16 00:00 98.9 99 29 140/59 95 09/23/16 00:00 98 09/22/16 22:00 98 09/22/16 21:10 100 T-piece 35 09/22/16 20:00 97 09/22/16 20:00 98.8 102 26 122/72 100 09/22/16 18:00 97 09/22/16 16:00 98.8 103 28 163/83 8 09/22/16 16:00 103 09/22/16 14:00 101 09/22/16 12:00 106 09/22/16 12:00 99.6 106 25 141/91 98 09/22/16 10:00 104 09/23/16 07:00 Intake Total 1940 ml Balance 1940 ml Review of Systems/Exam Exam She is intubated and sedated. No response to pain. General myoclonic movements on stimulation, off sedation except intermittent ativan/fentanyl. GCS 4 Cranial Nerves: Pupils 2mm, non-reactive to light. Pupils are 4 mm reactive to 3 mm bilaterally. Slight corneal reflex present on the left, absent on the right. No cough or gag. Disconjugate gaze. No spontaneous eye opening. Face musculature appeared symmetrical at rest. Face sensation, olfaction, visual phillips, and hearing cannot be adequately assessed due to his neurological condition. The patient has a corneal reflex. SHe has no gag reflex. The sternocleidomastoid and trapezius are symmetrical. Cervical Spine: Her neck is soft, supple, without nuchal rigidity. Motor: Extension response to pain Reflexes: Deep tendon reflexes are trace in the biceps, triceps, and brachioradialis, bilaterally, in the upper extremities. In the lower extremities, the patellar and ankles TRACE. There is a bilateral silent response to plantar stim. There is no clonus Sensory: On examination there is extension response to painful stimuli Cerebellar: Examination cannot be adequately assessed due to the patient's neurological condition. Medications Current Medications Current Medications Etomidate 40 mg 40 mg STK-MED ONCE .ROUTE ; Start 09/07/16 at 17:53; Stop at 17:54; Status DC Propofol (Diprivan 1000 Mg/100ml Inj) 100 ml @ As Directed STK-MED ONCE .ROUTE ; Start 09/07/16 at 18:14; Stop 09/07/16 at 18:15; Status DC Succinylcholine Chloride 200 mg 200 mg STK-MED ONCE .ROUTE ; Start 09/07/16 at 18:38; Stop 09/07/16 at 18:39; Status DC Sodium Chloride (NS 1000 ml Inj) 1,000 ml @ 100 mls/hr Q10H IV Last administered on 09/07/16 19:30; Start 09/07/16 at 19:30; Stop 09/08/16 at 03:31 ; Status DC Sodium Chloride (NS Flush) 2 ml UNSCH PRN IV FLUSH FLUSH AFTER USING IV ACCESS ; Start 09/07/16 at 18:45; Stop 09/12/16 at 17:55; Status DC Enalaprilat (Vasotec Inj) 1.25 mg Q8H PRN IV SBP>180, DBP>95; Start 09/07/16 at 18:45; Stop 09/17/16 at 13:35; Status DC Ondansetron HCl (Zofran Inj) 4 mg Q6H PRN IV NAUSEA OR VOMITING; Start at 18:45 Pantoprazole Sodium (Protonix Inj) 40 mg Q24H IVP Last administered on 20:45; Start 09/07/16 at 20:00; Stop 09/17/16 at 13:35; Status DC Docusate Sodium (Colace) 100 mg BID PO Last administered on 09/09/16 21:33; Start 09/07/16 at 21:00; Stop 09/10/16 at 09:20; Status DC Magnesium Hydroxide (Milk Of Magnesia Liq) 30 ml Q6H PRN PO CONSTIPATION; Start 09/07/16 at 18:45 Miscellaneous Information 1 [id number] Last administered on 09/07/16 18:45; Start 09/07/16 at 18:45 Chlorhexidine Gluconate (Chlorhexidine 2% Cloth) Taper DAILY@04 TOP Last administered on 09/23/16 04:00; Start 09/08/16 at 04:00; Stop 09/04/17 at 03:59 Chlorhexidine Gluconate 3 pack 3 pack UNSCH PRN TOP HYGIENIC CARE; Start at 18:45 Propofol 100 ml @ As Directed STK-MED ONCE .ROUTE Last administered on 01:42; Start 09/07/16 at 19:20; Stop 09/07/16 at 19:21; Status DC Midazolam HCl (Versed 100 Mg/ ml Inj) 100 ml @ 0 mls/hr TITRATE IV Last administered on 09/07/16 21:33; Start 09/07/16 at 21:30; Stop 09/11/16 at 11:27 ; Status DC Lorazepam 1 mg 1 mg Q1H PRN IV SEIZURES Last administered on 09/23/16 00:36; Start 09/07/16 at 22:00 Midazolam HCl 100 ml @ 0 mls/hr TITRATE IV ; Start 09/07/16 at 22:00; Stop 09/07 at 22:00; Status DC Miscellaneous Information ml @ 0 mls/hr UNSCH IV ; Start 09/07/16 at 22:00 Sodium Chloride (NS Flush) 2 ml UNSCH PRN IV FLUSH FLUSH AFTER USING IV ACCESS Last administered on 09/19/16 19:58; Start 09/07/16 at 22:00 Sodium Chloride 2 ml 2 ml UNSCH PRN IV FLUSH IV FLUSH; Start 09/07/16 at 22:00 Sodium Chloride (NS 1000 ml Inj) 1,000 ml @ 2,000 mls/hr Q30M IV Last administered on 09/08/16 00:23; Start 09/07/16 at 22:00; Stop 09/07/16 at 22:59 ; Status DC Artificial Tears 1 applic 1 applic Q4H PRN EACH EYE SEE LABEL COMMENTS Last administered on 09/23/16 09:06; Start 09/07/16 at 22:00 Cisatracurium Besylate 100 mg/ Sodium Chloride 250 ml @ 0 mls/hr TITRATE PRN IV ONLY IF SHIVERING Last administered on 09/08/16 08:21; Start 09/07/16 at 21: 30; Stop 09/09/16 at 07:48; Status DC Norepinephrine Bitartrate 4 mg/ Sodium Chloride 250 ml @ 0 mls/hr TITRATE IV ; Start 09/07/16 at 21:30; Stop 09/08/16 at 12:56; Status DC Sodium Chloride 2,000 ml @ 0 mls/hr NOW IV ; Start 09/07/16 at 23:00; Stop at 23:56; Status DC Potassium Chloride 100 ml @ 50 mls/hr Q2H PRN IV For Potassium 2.8 - 3.2 mEq/ L Last administered on 09/13/16 09:02; Start 09/08/16 at 00:30 Potassium Chloride (KCl 20 Meq Premix Inj) 100 ml @ 50 mls/hr Q2H PRN IV For Potassium 2.8 - 3.2 mEq/L Last administered on 09/08/16 18:20; Start 09/08/16 at 00:30 Potassium Bicarb/ Potassium Chloride 50 meq 50 meq UNSCH PRN PO For Potassium 3.3 - 3.5 mEq/L; Start 09/08/16 at 00:30 Potassium Chloride 100 ml @ 25 mls/hr UNSCH PRN IV For Potassium 3.3 - 3.5 mEq /L Last administered on 09/15/16 04:38; Start 09/08/16 at 00:30 Potassium Chloride 100 ml @ 50 mls/hr Q2H PRN IV For Potassium 3.3 - 3.5 mEq/ L Last administered on 09/14/16 18:35; Start 09/08/16 at 00:30 Magnesium Sulfate/ Sodium Chloride (Magnesium Sulfate Inj/NS Inj) 100 ml @ 50 mls/hr UNSCH PRN IV For Magnesium 0.9 - 1.1 mg/dL; Start 09/08/16 at 00:30 Magnesium Oxide 800 mg 800 mg UNSCH PRN PO For Magnesium 1.2 - 1.6 mg/dL; Start 09/08/16 at 00:30 Magnesium Sulfate/ Sodium Chloride (Magnesium Sulfate Inj/NS Inj) 100 ml @ 50 mls/hr UNSCH PRN IV For Magnesium 1.2 - 1.6 mg/dL Last administered on 07:11; Start 09/08/16 at 00:30 Potassium Phosphate 2000 mg 2,000 mg Q4H PRN PO For Phosphorus < 2.5 mg/dL; Start 09/08/16 at 00:30 Sodium Phosphate/ Sodium Chloride (Sodium Phosphate Inj/NS 250 ml Inj) 250 ml @ 42 mls/hr UNSCH PRN IV For Phosphorus < 2.5 mg/dL; Start 09/08/16 at 00:30 Potassium Phosphate 2000 mg 2,000 mg UNSCH PRN PO/TUBE SEE LABEL COMMENTS; Start 09/08/16 at 00:30 Potassium Phosphate 30 mmol/ Sodium Chloride 260 ml @ 42 mls/hr UNSCH PRN IV SEE LABEL COMMENTS; Start 09/08/16 at 00:30 Propofol 100 ml @ As Directed STK-MED ONCE .ROUTE ; Start 09/08/16 at 01:36; Stop 09/08/16 at 01:37; Status DC Propofol (Diprivan 1000 Mg/100ml Inj) 100 ml @ 0 mls/hr TITRATE IV Last administered on 09/16/16 11:59; Start 09/08/16 at 02:00 Vecuronium [place] 10 mg 10 mg STK-MED ONCE .ROUTE ; Start 09/08/16 at 02:33; Stop 09/08/16 at 02:34; Status DC Sodium Chloride (NS 1000 ml Inj) 1,000 ml @ 0 mls/hr NOW IV Last administered on 09/08/16 02:44; Start 09/08/16 at 02:45; Stop 09/08/16 at 03:20; Status DC Vecuronium [place] 10 mg 10 mg NOW IV Last administered on 09/08/16 02:43; Start 09/08/16 at 02:35; Stop 09/08/16 at 02:46; Status DC Sodium Bicarbonate 150 meq/Dextrose 1,150 ml @ 100 mls/hr [id number] IV Last administered on 09/08/16 03:53; Start 09/08/16 at 04:00; Stop 09/08/16 at 12:56 ; Status DC Fentanyl Citrate (fentaNYL DRIP) 250 ml @ 0 mls/hr TITRATE IV Last administered on 09/08/16 05:06; Start 09/08/16 at 05:00; Stop 09/11/16 at 11:27 ; Status DC Phenylephrine HCl (Neosynephrine Inj) 10 mg STK-MED ONCE .ROUTE ; Start at 07:00; Stop 09/08/16 at 07:02; Status DC Phenylephrine HCl 10 mg 10 mg STK-MED ONCE .ROUTE ; Start 09/08/16 at 07:06; Stop 09/08/16 at 07:07; Status DC Piperacillin Sod/ Tazobactam Sod (Zosyn 4.5 Gm Premix) 100 ml @ 200 mls/hr Q6H IV Last administered on 09/16/16 02:36; Start 09/08/16 at 08:00; Stop 09/16/16 at 06:00; Status DC Terbutaline Sulfate 1 mg 1 mg UNSCH PRN SQ For Extravasation; Start 09/08/16 at 07:30; Stop 09/08/16 at 13:02; Status DC Phenylephrine HCl 160 mg/Dextrose 500 ml @ 0 mls/hr TITRATE IV ; Start 09/08/16 at 07:30; Stop 09/08/16 at 12:57; Status DC Sodium Chloride (NS 1000 ml Inj) 1,000 ml @ 999 mls/hr BOLUS ONCE IV Last administered on 09/08/16 07:30; Start 09/08/16 at 07:30; Stop 09/08/16 at 08:30 ; Status DC Albumin Human 25 gm 25 gm ONCE ONCE IV Last administered on 09/08/16 08:05; Start 09/08/16 at 08:00; Stop 09/08/16 at 08:01; Status DC Vancomycin HCl 1000 mg/Sodium Chloride 250 ml @ 250 mls/hr ONCE ONCE IV Last administered on 09/08/16 09:01; Start 09/08/16 at 08:30; Stop 09/08/16 at 09:29 ; Status DC Sodium Bicarbonate (Sodium Bicarbonate 8.4% Inj) 50 ml @ As Directed STK-MED ONCE .ROUTE ; Start 09/08/16 at 08:49; Stop 09/08/16 at 08:50; Status DC Sodium Bicarbonate 100 meq 100 meq STAT ONCE IV Last administered on 09:00; Start 09/08/16 at 11:00; Stop 09/08/16 at 11:01; Status DC Norepinephrine Bitartrate/Sodium Chloride (Levophed Inj/NS 250 ml Inj) 250 ml @ 0 mls/hr TITRATE IV Last administered on 09/09/16 17:54; Start 09/08/16 at 13: 00; Stop 09/09/16 at 11:11; Status DC Terbutaline Sulfate 1 mg 1 mg UNSCH PRN SQ For Extravasation; Start 09/08/16 at 13:00; Stop 09/09/16 at 17:47; Status DC Sodium Bicarbonate 150 meq/Sterile Water 1,150 ml @ 150 mls/hr Q7H40M IV Last administered on 09/09/16 05:26; Start 09/08/16 at 15:00; Stop 09/09/16 at 07:47 ; Status DC Sodium Chloride 1,000 ml @ 0 mls/hr BOLUS ONCE IV Last administered on 14:00; Start 09/08/16 at 14:15; Stop 09/08/16 at 14:16; Status DC Sodium Chloride 1,000 ml @ 0 mls/hr BOLUS ONCE IV ; Start 09/08/16 at 14:30; Stop 09/08/16 at 14:31; Status Cancel Sodium Chloride (NS 1000 ml Inj) 1,000 ml @ 999 mls/hr BOLUS ONCE IV Last administered on 09/08/16 18:00; Start 09/08/16 at 18:00; Stop 09/08/16 at 19:00 ; Status DC Lorazepam (Ativan Inj) 2 mg STK-MED ONCE .ROUTE ; Start 09/09/16 at 06:53; Stop 09/09/16 at 06:54; Status DC Lorazepam (Ativan Inj) 4 mg STK-MED ONCE .ROUTE ; Start 09/09/16 at 06:57; Stop 09/09/16 at 06:58; Status DC Phenylephrine HCl (Neosynephrine Inj) 40 mg STK-MED ONCE .ROUTE ; Start at 07:33; Stop 09/09/16 at 07:34; Status DC Phenylephrine HCl 40 mg 40 mg STK-MED ONCE .ROUTE ; Start 09/09/16 at 07:34; Stop 09/09/16 at 07:35; Status DC Fosphenytoin Sodium/Sodium Chloride (Cerebyx Inj/NS Inj) 70 ml @ 280 mls/hr ONCE ONCE IV Last administered on 09/09/16 08:15; Start 09/09/16 at 09:00; Stop 09/09/16 at 09:14; Status DC Fosphenytoin Sodium (Cerebyx Inj) 100 mgpe Q8HR IV Last administered on 23:34; Start 09/09/16 at 14:00; Stop 09/18/16 at 04:56; Status DC Lorazepam 6 mg 6 mg ONCE ONCE IV Last administered on 09/09/16 07:00; Start 09/09/16 at 08:00; Stop 09/09/16 at 08:01; Status DC Phenylephrine HCl/ Dextrose (Neosynephrine Inj/D5W 500 ml Inj) 500 ml @ 0 mls/ hr TITRATE IV ; Start 09/09/16 at 09:45; Stop 09/09/16 at 09:45; Status DC Terbutaline Sulfate 1 mg 1 mg UNSCH PRN SQ FOR EXTRAVASATION PROTOCOL; Start at 09:45; Stop 09/13/16 at 08:38; Status DC Phenylephrine HCl 40 mg/Sodium Chloride 500 ml @ 0 mls/hr TITRATE IV Last administered on 09/09/16 17:55; Start 09/09/16 at 09:45; Stop 09/09/16 at 17:47 ; Status DC Vancomycin HCl 1000 mg/Sodium Chloride 250 ml @ 250 mls/hr ONCE ONCE IV Last administered on 09/09/16 11:23; Start 09/09/16 at 10:45; Stop 09/09/16 at 11:44 ; Status DC Pharmacy Profile Note 0 ml @ 0 mls/hr UNSCH OTHER ; Start 09/09/16 at 10:45; Stop 09/13/16 at 08:39; Status DC Norepinephrine Bitartrate 4 mg/ Sodium Chloride 250 ml @ 0 mls/hr TITRATE IV Last administered on 09/09/16 15:33; Start 09/09/16 at 11:15; Stop 09/09/16 at 17:47; Status DC Vancomycin HCl/ Sodium Chloride (Vancomycin Inj/ NS 250 ml Inj) 250 ml @ 250 mls/hr Q8H IV Last administered on 09/11/16 05:52; Start 09/09/16 at 20:00; Stop 09/11/16 at 12:58; Status DC Miscellaneous Information SPECIFIC LAB TO BE DRAWN:VANCOMYCIN TROUGH DATE TO... ONCE ONCE .XX Last administered on 09/10/16 11:27; Start 09/10/16 at 11:45; Stop 09/10/16 at 11:46; Status DC Sodium Chloride (NS 1000 ml Inj) 1,000 ml @ 999 mls/hr Q1H1M IV Last administered on 09/09/16 11:00; Start 09/09/16 at 11:45; Stop 09/09/16 at 13:45 ; Status DC Gadodiamide 20 ml 20 ml STK-MED ONCE IV Last administered on 09/09/16 16:39; Start 09/09/16 at 16:39; Stop 09/09/16 at 16:40; Status DC Phenylephrine HCl/ Dextrose (Neosynephrine Inj/D5W 500 ml Inj) 500 ml @ 0 mls/ hr TITRATE IV ; Start 09/09/16 at 18:00; Stop 09/09/16 at 18:00; Status DC Terbutaline Sulfate 1 mg 1 mg UNSCH PRN SQ FOR EXTRAVASATION PROTOCOL; Start at 18:00; Stop 09/13/16 at 08:38; Status DC Norepinephrine Bitartrate 16 mg/ Dextrose 250 ml @ 0 mls/hr TITRATE IV ; Start 09/09/16 at 18:00; Stop 09/09/16 at 18:00; Status DC Phenylephrine HCl 160 mg/Sodium Chloride 500 ml @ 0 mls/hr TITRATE IV Last administered on 09/10/16 04:52; Start 09/09/16 at 18:00; Stop 09/11/16 at 11:27 ; Status DC Norepinephrine Bitartrate/Sodium Chloride (Levophed Inj/NS 250 ml Inj) 250 ml @ 0 mls/hr TITRATE IV Last administered on 09/10/16 04:52; Start 09/09/16 at 18: 00; Stop 09/13/16 at 08:39; Status DC Aspirin (Aspirin Chew) 81 mg DAILY CHEW Last administered on 09/13/16 10:09; Start 09/10/16 at 09:00; Status Hold Artificial Tears (Tears Naturale Opth Soln) 1 drop BID EACH EYE Last administered on 09/22/16 21:00; Start 09/10/16 at 21:00 Docusate Sodium (Colace Liq) 100 mg BID PO Last administered on 09/22/16 08:17 ; Start 09/10/16 at 21:00 Midazolam HCl (Versed Inj) 5 mg STK-MED ONCE .ROUTE ; Start 09/10/16 at 09:43; Stop 09/10/16 at 09:44; Status DC Acetaminophen (Tylenol 650 Mg/ 20 ml Liq) 650 mg NOW ONCE PO Last administered on 09/10/16 11:19; Start 09/10/16 at 10:30; Stop 09/10/16 at 10:31 ; Status DC Dextrose (D50w (Syr) Inj) 50 ml STK-MED ONCE .ROUTE ; Start 09/10/16 at 12:49; Stop 09/10/16 at 12:50; Status DC Dextrose (D50w (Syr) Inj) 50 ml NOW ONCE IV PUSH Last administered on 12:45; Start 09/10/16 at 13:30; Stop 09/10/16 at 13:31; Status DC Miscellaneous Information SPECIFIC LAB TO BE DRAWN:VANCOMYCIN TROUGH DATE TO... ONCE ONCE .XX Last administered on 09/11/16 11:45; Start 09/11/16 at 11:45; Stop 09/11/16 at 11:46; Status DC Midazolam HCl (Versed Inj) 3 mg ONCE ONCE IV PUSH Last administered on 09:44; Start 09/10/16 at 14:15; Stop 09/10/16 at 14:16; Status DC Dextrose 50 ml 50 ml NOW ONCE IV PUSH Last administered on 09/10/16 16:09; Start 09/10/16 at 16:00; Stop 09/10/16 at 16:34; Status DC Sodium Chloride (NS 1000 ml Inj) 1,000 ml @ 100 mls/hr Q10H IV Last administered on 09/15/16 13:20; Start 09/11/16 at 12:00; Stop 09/15/16 at 19:09; Status DC Propranolol HCl (Inderal) 20 mg Q8HR PO Last administered on 09/12/16 04:44; Start 09/11/16 at 14:00; Stop 09/12/16 at 17:13; Status DC Magnesium Citrate (Citroma Liq) 300 ml ONCE ONCE NG ; Start 09/12/16 at 09:00; Stop 09/12/16 at 09:01; Status DC Lactulose 30 ml 30 ml QID PO Last administered on 09/22/16 16:43; Start at 09:00 Vancomycin HCl/ Sodium Chloride (Vancomycin Inj/ NS 250 ml Inj) 250 ml @ 250 mls/hr Q12H IV Last administered on 09/12/16 21:29; Start 09/12/16 at 10:00; Stop 09/13/16 at 08:39; Status DC Miscellaneous Information SPECIFIC LAB TO BE CHANDU... ONCE ONCE .XX ; Start at 09:45; Stop 09/14/16 at 09:45; Status DC Furosemide (Lasix Inj) 20 mg ONCE ONCE IV PUSH Last administered on 09/12/16 12:04; Start 09/12/16 at 09:30; Stop 09/12/16 at 09:31; Status DC Mannitol 12.5 gm 12.5 gm Q8H IV Last administered on 09/12/16 15:37; Start at 14:00; Stop 09/12/16 at 21:51; Status DC Sodium Chloride 188 meq/Sodium Chloride 1,047 ml @ 20 mls/hr Q24H IV Last administered on 09/14/16 19:49; Start 09/12/16 at 16:00; Stop 09/16/16 at 15:33; Status DC Norepinephrine Bitartrate (Levophed-Dextrose Drip) 250 ml @ 0 mls/hr TITRATE IV Last administered on 09/16/16 05:37; Start 09/12/16 at 18:00; Stop 09/16/16 at 08:02; Status DC Terbutaline Sulfate (Brethine Inj) 1 mg UNSCH PRN SQ For Extravasation; Start 09/12/16 at 18:00; Stop 09/16/16 at 08:02; Status DC Iohexol (Omnipaque 350 Inj) 30 ml STK-MED ONCE IV Last administered on 21:02; Start 09/12/16 at 21:02; Stop 09/12/16 at 21:03; Status DC Mannitol (Mannitol Inj) 12.5 gm Q8H IV Last administered on 09/16/16 06:56; Start 09/12/16 at 23:00; Stop 09/17/16 at 04:13; Status DC Potassium Bicarb/ Potassium Chloride (K-Lyte Cl Eff) 25 meq DAILY PO Last administered on 09/23/16 09:01; Start 09/13/16 at 09:00 Magnesium Citrate (Citroma Liq) 300 ml ONCE ONCE PO ; Start 09/13/16 at 08:30; Stop 09/13/16 at 08:41; Status DC Bisacodyl (Dulcolax Supp) 10 mg DAILY RECTAL Last administered on 09/13/16 10: 09; Start 09/13/16 at 09:00 Oxycodone HCl (Roxicodone) 5 mg Q6H OG-TUBE Last administered on 09/23/16 09: 03; Start 09/14/16 at 20:00 Fentanyl Citrate (fentaNYL INJ) 100 mcg ONCE ONCE IV PUSH ; Start 09/14/16 at 20 :00; Stop 09/14/16 at 20:01; Status DC Fentanyl Citrate (fentaNYL INJ) 50 mcg Q1H PRN IV PUSH PAIN, ICP >20 Last administered on 09/22/16 23:16; Start 09/14/16 at 19:00 Acetaminophen 650 mg 650 mg Q4H PRN PO FEVER Last administered on 09/19/16 10: 21; Start 09/15/16 at 20:30 Norepinephrine Bitartrate/Sodium Chloride (Levophed Inj/NS 250 ml Inj) 250 ml @ 0 mls/hr TITRATE IV Last administered on 09/16/16 09:11; Start 09/16/16 at 08:15 ; Stop 09/16/16 at 15:33; Status DC Terbutaline Sulfate (Brethine Inj) 1 mg UNSCH PRN SQ For Extravasation; Start 09/16/16 at 08:15; Stop 09/17/16 at 13:35; Status DC Pantoprazole Sodium (Protonix) 40 mg DAILY PO ; Start 09/18/16 at 09:00 Furosemide (Lasix Inj) 20 mg ONCE ONCE IV PUSH Last administered on 09/17/16 14:30; Start 09/17/16 at 13:30; Stop 09/17/16 at 13:42; Status DC Cisatracurium Besylate (Nimbex Inj) 20 mg ONCE ONCE IV Last administered on 14:30; Start 09/17/16 at 13:30; Stop 09/17/16 at 13:43; Status DC Midazolam HCl (Versed Inj) 10 mg ONCE ONCE IV PUSH Last administered on 14:53; Start 09/17/16 at 13:30; Stop 09/17/16 at 13:44; Status DC Fentanyl Citrate 250 mcg 250 mcg ONCE ONCE IV PUSH Last administered on 13:30; Start 09/17/16 at 13:30; Stop 09/17/16 at 13:42; Status DC Cefazolin Sodium/ Sodium Chloride (Ancef Inj/NS Inj) 100 ml @ 200 mls/hr SUCTION PLATE [employer]ER IV ; Start 09/20/16 at 16:00; Stop 09/23/16 at 15:59 Clonazepam (KlonoPIN) 1 mg Q8H PO Last administered on 09/23/16 02:37; Start 09/17/16 at 18:00 Lorazepam (Ativan Inj) 3 mg NOW IV Last administered on 09/18/16 04:04; Start 09/18/16 at 04:00; Stop 09/18/16 at 05:20; Status DC Acetaminophen (Ofirmev Inj) 1,000 mg NOW IV Last administered on 09/18/16 04:03 ; Start 09/18/16 at 04:00; Stop 09/18/16 at 05:20; Status DC Ibuprofen 600 mg 600 mg Q6H PRN PO fever >100.5 Last administered on 09/18/16 20:48; Start 09/18/16 at 04:15; Stop 09/18/16 at 20:55; Status DC Levetriacetam 100 ml @ 400 mls/hr Q12HR IV Last administered on 09/22/16 22:27 ; Start 09/18/16 at 09:00 Cefepime HCl 2000 mg/Sodium Chloride 100 ml @ 200 mls/hr Q8H IV ; Start at 05:00; Stop 09/18/16 at 05:18; Status DC Vancomycin HCl/ Sodium Chloride (Vancomycin Inj/ NS 250 ml Inj) 250 ml @ 250 mls/hr ONCE ONCE IV Last administered on 09/18/16 08:40; Start 09/18/16 at 05: 00; Stop 09/18/16 at 05:59; Status DC Lorazepam 3 mg 3 mg NOW IV Last administered on 09/18/16 05:19; Start 09/18/16 at 05:30; Stop 09/18/16 at 06:30; Status DC Cefepime HCl/ Sodium Chloride (Maxipime Inj/NS Inj) 100 ml @ 200 mls/hr Q8H IV Last administered on 09/21/16 05:57; Start 09/18/16 at 06:00; Stop 09/21/16 at 08:02; Status DC Fondaparinux (Arixtra Inj) 7.5 mg Q24H SQ Last administered on 09/23/16 05:33 ; Start 09/18/16 at 06:00 Propranolol HCl 20 mg 20 mg Q6HR PO Last administered on 09/23/16 05:32; Start 09/18/16 at 06:45 Sodium Chloride/ Sodium Chloride (Sodium Chloride 23.4% Inj/NS 1000 ml Inj) 1, 047 ml @ 20 mls/hr Q24H IV Last administered on 09/18/16 19:50; Start 09/18/16 at 20:00; Stop 09/19/16 at 07:57; Status DC Ibuprofen (Motrin Liq) 600 mg Q6H PRN PO FEVER > 100.5 Last administered on 09/19 14:20; Start 09/18/16 at 21:00 Sodium Chloride (Sodium Chloride) 3 gm Q8H PO Last administered on 09/23/16 09 :04; Start 09/19/16 at 08:00 Acetaminophen (Ofirmev Inj) 1,000 mg UNSCH X1 IV Last administered on 22:52; Start 09/19/16 at 22:15; Stop 09/19/16 at 23:45; Status DC Propofol 300 mg 300 mg STK-MED ONCE IV ; Start 09/20/16 at 15:16; Stop 09/20/16 at 16:16; Status DC Cefazolin Sodium/ Dextrose (Ancef 2 Gm Premix) 50 ml @ 100 mls/hr Q8H IV Last administered on 09/23/16t 09:02; Start 09/21/16 at 08:00; Stop 09/27/16 at 07:59 Medical Decision Making MDM Remarks Last Impressions Liver Ultrasound 09/18/16 0000 Signed Impressions: Service Date/Time: Sunday, September 18, 2016 09:27 - CONCLUSION: 1. There is sludge within the gallbladder. No other findings are present to indicate acute cholecystitis. 2. Mild splenomegaly. Miller Lee MD Chest X-Ray 09/18/16 0000 Signed Impressions: Service Date/Time: Sunday, September 18, 2016 05:01 - CONCLUSION: 1. Right perihilar edema versus pneumonia. There has been no significant change when compared to the prior exam. 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 This is nonocclusive. A retrievable IVC filter was deployed below the main hepatic veins but it was necessary to cross an accessory right hepatic vein. Jose Armando Jackson Jr., MD Head CT 09/12/16 0000 Signed Impressions: Service Date/Time: Monday, September 12, 2016 09:29 - CONCLUSION: Mild loss of lemos matter definition that can be seen with increasing intracranial pressure. Ricki Cavazos MD FACR Neck Magnetic Resonance Angiography 09/09/16 0000 Signed Impressions: Service Date/Time: August 16:02 - CONCLUSION: 1. Moderate to severe smooth narrowing of the left common carotid artery and also moderate narrowing of the proximal right common carotid artery as well as narrowing of both proximal vertebral arteries likely related to recent hanging. Etiology could be related to vasospasm or recent extrinsic prolonged compression. The distal internal carotid arteries and vertebral artery have more normal calibers. Findings called to Dr. Bhatt at the time of dictation. Gideno Brown MD Cervical Spine MRI 09/09/16 0000 Signed Impressions: Service Date/Time: August 16:02 - CONCLUSION: 1. Very minimal degenerative disc disease at C5-6. 2. No acute fracture or prevertebral soft tissue swelling. 3. No focal cervical cord abnormality. Tray Santiago MD Brain MRI 09/09/16 0000 Signed Impressions: Service Date/Time: August 16:02 - CONCLUSION: 1. Diffuse FLAIR-weighted hyperintensities involving the caudate nuclei bilaterally, bilateral hummel radiata, as well as the bilateral parietal and occipital cortex consistent with the patient's clinical diagnosis of anoxic encephalopathy. 2. No acute hemorrhage, midline shift, extra-axial fluid collection or abnormal enhancement. 3. Small fluid level within the right sphenoid sinus. Tray Santiago MD Cervical Spine CT 09/07/16 1800 Signed Impressions: Service Date/Time: Wednesday, September 07, 2016 18:06 - CONCLUSION: 1. No fracture or subluxation. 2. Scattered groundglass nodules throughout the upper lobes, nonspecific but can be seen with hypersensitivity pneumonitis. Artem Madera MD Last Impressions Liver Ultrasound 09/18/16 0000 Signed Impressions: Service Date/Time: Sunday, September 18, 2016 09:27 - CONCLUSION: 1. There is sludge within the gallbladder. No other findings are present to indicate acute cholecystitis. 2. Mild splenomegaly. Miller Lee MD Chest X-Ray 09/18/16 0000 Signed Impressions: Service Date/Time: Sunday, September 18, 2016 05:01 - CONCLUSION: 1. Right perihilar edema versus pneumonia. There has been no significant change when compared to the prior exam. 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 This is nonocclusive. A retrievable IVC filter was deployed below the main hepatic veins but it was necessary to cross an accessory right hepatic vein. Jose Armando Jackson Jr., MD Head CT 09/12/16 0000 Signed Impressions: Service Date/Time: Monday, September 12, 2016 09:29 - CONCLUSION: Mild loss of lemos matter definition that can be seen with increasing intracranial pressure. Ricki Cavazos MD FACR Neck Magnetic Resonance Angiography 09/09/16 0000 Signed Impressions: Service Date/Time: August 16:02 - CONCLUSION: 1. Moderate to severe smooth narrowing of the left common carotid artery and also moderate narrowing of the proximal right common carotid artery as well as narrowing of both proximal vertebral arteries likely related to recent hanging. Etiology could be related to vasospasm or recent extrinsic prolonged compression. The distal internal carotid arteries and vertebral artery have more normal calibers. Findings called to Dr. Bhatt at the time of dictation. Gideon Brown MD Cervical Spine MRI 09/09/16 0000 Signed Impressions: Service Date/Time: , September 09, 2016 16:02 - CONCLUSION: 1. Very minimal degenerative disc disease at C5-6. 2. No acute fracture or prevertebral soft tissue swelling. 3. No focal cervical cord abnormality. Tray Santiago MD Brain MRI 09/09/16 0000 Signed Impressions: Service Date/Time: August 16:02 - CONCLUSION: 1. Diffuse FLAIR-weighted hyperintensities involving the caudate nuclei bilaterally, bilateral hummel radiata, as well as the bilateral parietal and occipital cortex consistent with the patient's clinical diagnosis of anoxic encephalopathy. 2. No acute hemorrhage, midline shift, extra-axial fluid collection or abnormal enhancement. 3. Small fluid level within the right sphenoid sinus. Tray Santiago MD Cervical Spine CT 09/07/16 1800 Signed Impressions: Service Date/Time: Wednesday, September 07, 2016 18:06 - CONCLUSION: 1. No fracture or subluxation. 2. Scattered groundglass nodules throughout the upper lobes, nonspecific but can be seen with hypersensitivity pneumonitis. Artem Madera MD Last Impressions Liver Ultrasound 09/18/16 0000 Signed Impressions: Service Date/Time: Sunday, September 18, 2016 09:27 - CONCLUSION: 1. There is sludge within the gallbladder. No other findings are present to indicate acute cholecystitis. 2. Mild splenomegaly. Miller Lee MD Chest X-Ray 09/18/16 0000 Signed Impressions: Service Date/Time: Sunday, September 18, 2016 05:01 - CONCLUSION: 1. Right perihilar edema versus pneumonia. There has been no significant change when compared to the prior exam. 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 This is nonocclusive. A retrievable IVC filter was deployed below the main hepatic veins but it was necessary to cross an accessory right hepatic vein. Jose Armando Jackson Jr., MD Head CT 09/12/16 Signed Impressions: Service Date/Time: Monday, September 12, 2016 09:29 - CONCLUSION: Mild loss of lemos matter definition that can be seen with increasing intracranial pressure. Ricki Cavazos MD FACR Neck Magnetic Resonance Angiography 09/09/16 Signed Impressions: Service Date/Time: August 16:02 - CONCLUSION: 1. Moderate to severe smooth narrowing of the left common carotid artery and also moderate narrowing of the proximal right common carotid artery as well as narrowing of both proximal vertebral arteries likely related to recent hanging. Etiology could be related to vasospasm or recent extrinsic prolonged compression. The distal internal carotid arteries and vertebral artery have more normal calibers. Findings called to Dr. Bhatt at the time of dictation. Gideon Brown MD Cervical Spine MRI 09/09/16 Signed Impressions: Service Date/Time: August 16:02 - CONCLUSION: 1. Very minimal degenerative disc disease at C5-6. 2. No acute fracture or prevertebral soft tissue swelling. 3. No focal cervical cord abnormality. Tray Santiago MD Brain MRI 09/09/16 0000 Signed Impressions: Service Date/Time: August 16:02 - CONCLUSION: 1. Diffuse FLAIR-weighted hyperintensities involving the caudate nuclei bilaterally, bilateral hummel radiata, as well as the bilateral parietal and occipital cortex consistent with the patient's clinical diagnosis of anoxic encephalopathy. 2. No acute hemorrhage, midline shift, extra-axial fluid collection or abnormal enhancement. 3. Small fluid level within the right sphenoid sinus. Tray Santiago MD Cervical Spine CT 09/07/16 1800 Signed Impressions: Service Date/Time: Wednesday, September 07, 2016 18:06 - CONCLUSION: 1. No fracture or subluxation. 2. Scattered groundglass nodules throughout the upper lobes, nonspecific but can be seen with hypersensitivity pneumonitis. Artem Madera MD Last Impressions Liver Ultrasound 09/18/16 Signed Impressions: Service Date/Time: Sunday, September 18, 2016 09:27 - CONCLUSION: 1. There is sludge within the gallbladder. No other findings are present to indicate acute cholecystitis. 2. Mild splenomegaly. Miller Lee MD Chest X-Ray 09/18/16 Signed Impressions: Service Date/Time: Sunday, September 18, 2016 05:01 - CONCLUSION: 1. Right perihilar edema versus pneumonia. There has been no significant change when compared to the prior exam. 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 This is nonocclusive. A retrievable IVC filter was deployed below the main hepatic veins but it was necessary to cross an accessory right hepatic vein. Jose Armando Jackson Jr., MD Head CT 09/12/16 Signed Impressions: Service Date/Time: Monday, September 12, 2016 09:29 - CONCLUSION: Mild loss of lemos matter definition that can be seen with increasing intracranial pressure. Ricki Cavazos MD FACR Neck Magnetic Resonance Angiography 09/09/16 Signed Impressions: Service Date/Time: August 16:02 - CONCLUSION: 1. Moderate to severe smooth narrowing of the left common carotid artery and also moderate narrowing of the proximal right common carotid artery as well as narrowing of both proximal vertebral arteries likely related to recent hanging. Etiology could be related to vasospasm or recent extrinsic prolonged compression. The distal internal carotid arteries and vertebral artery have more normal calibers. Findings called to Dr. Bhatt at the time of dictation. Gideon Brown MD Cervical Spine MRI 09/09/16 Signed Impressions: Service Date/Time: August 16:02 - CONCLUSION: 1. Very minimal degenerative disc disease at C5-6. 2. No acute fracture or prevertebral soft tissue swelling. 3. No focal cervical cord abnormality. Tray Santiago MD Brain MRI 09/09/16 0000 Signed Impressions: Service Date/Time: August 16:02 - CONCLUSION: 1. Diffuse FLAIR-weighted hyperintensities involving the caudate nuclei bilaterally, bilateral hummel radiata, as well as the bilateral parietal and occipital cortex consistent with the patient's clinical diagnosis of anoxic encephalopathy. 2. No acute hemorrhage, midline shift, extra-axial fluid collection or abnormal enhancement. 3. Small fluid level within the right sphenoid sinus. Tray Santiago MD Cervical Spine CT 09/07/16 1800 Signed Impressions: Service Date/Time: Wednesday, September 07, 2016 18:06 - CONCLUSION: 1. No fracture or subluxation. 2. Scattered groundglass nodules throughout the upper lobes, nonspecific but can be seen with hypersensitivity pneumonitis. Artem Madera MD Last Impressions Liver Ultrasound 09/18/16 Signed Impressions: Service Date/Time: Sunday, September 18, 2016 09:27 - CONCLUSION: 1. There is sludge within the gallbladder. No other findings are present to indicate acute cholecystitis. 2. Mild splenomegaly. Miller Lee MD Chest X-Ray 09/18/16 Signed Impressions: Service Date/Time: Sunday, September 18, 2016 05:01 - CONCLUSION: 1. Right perihilar edema versus pneumonia. There has been no significant change when compared to the prior exam. 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 This is nonocclusive. A retrievable IVC filter was deployed below the main hepatic veins but it was necessary to cross an accessory right hepatic vein. Jose Armando Jackson Jr., MD Head CT 09/12/16 0000 Signed Impressions: Service Date/Time: Monday, September 12, 2016 09:29 - CONCLUSION: Mild loss of lemos matter definition that can be seen with increasing intracranial pressure. Ricki Cavazos MD FACR Neck Magnetic Resonance Angiography 09/09/16 0000 Signed Impressions: Service Date/Time: August 16:02 - CONCLUSION: 1. Moderate to severe smooth narrowing of the left common carotid artery and also moderate narrowing of the proximal right common carotid artery as well as narrowing of both proximal vertebral arteries likely related to recent hanging. Etiology could be related to vasospasm or recent extrinsic prolonged compression. The distal internal carotid arteries and vertebral artery have more normal calibers. Findings called to Dr. Bhatt at the time of dictation. Gideon Brown MD Cervical Spine MRI 09/09/16 0000 Signed Impressions: Service Date/Time: August 16:02 - CONCLUSION: 1. Very minimal degenerative disc disease at C5-6. 2. No acute fracture or prevertebral soft tissue swelling. 3. No focal cervical cord abnormality. Tray Santiago MD Brain MRI 09/09/16 0000 Signed Impressions: Service Date/Time: August 16:02 - CONCLUSION: 1. Diffuse FLAIR-weighted hyperintensities involving the caudate nuclei bilaterally, bilateral hummel radiata, as well as the bilateral parietal and occipital cortex consistent with the patient's clinical diagnosis of anoxic encephalopathy. 2. No acute hemorrhage, midline shift, extra-axial fluid collection or abnormal enhancement. 3. Small fluid level within the right sphenoid sinus. Tray Santiago MD Cervical Spine CT 09/07/16 1800 Signed Impressions: Service Date/Time: Wednesday, September 07, 2016 18:06 - CONCLUSION: 1. No fracture or subluxation. 2. Scattered groundglass nodules throughout the upper lobes, nonspecific but can be seen with hypersensitivity pneumonitis. Artem Madera MD Last Impressions Liver Ultrasound 09/12/16 Signed Impressions: Service Date/Time: Monday, September 12, 2016 16:15 - CONCLUSION: 1. 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 2. Pericholecystic fluid and gallbladder wall thickening raising the possibility of cholecystitis. A hepatobiliary scan may be helpful to confirm cystic duct obstruction if clinically indicated. 3. Gallbladder sludge. 4. Ascites. 5. Bilateral pleural effusions. 6. Mild hepatomegaly. 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 This is nonocclusive. A retrievable IVC filter was deployed below the main hepatic veins but it was necessary to cross an accessory right hepatic vein. Jose Armando Jackson Jr., MD Head CT 09/12/16 0000 Signed Impressions: Service Date/Time: Monday, September 12, 2016 09:29 - CONCLUSION: Mild loss of lemos matter definition that can be seen with increasing intracranial pressure. Ricki Cavazos MD FACR Neck Magnetic Resonance Angiography 09/09/16 0000 Signed Impressions: Service Date/Time: August 16:02 - CONCLUSION: 1. Moderate to severe smooth narrowing of the left common carotid artery and also moderate narrowing of the proximal right common carotid artery as well as narrowing of both proximal vertebral arteries likely related to recent hanging. Etiology could be related to vasospasm or recent extrinsic prolonged compression. The distal internal carotid arteries and vertebral artery have more normal calibers. Findings called to Dr. Bhatt at the time of dictation. Gideon Brown MD Cervical Spine MRI 09/09/16 0000 Signed Impressions: Service Date/Time: August 16:02 - CONCLUSION: 1. Very minimal degenerative disc disease at C5-6. 2. No acute fracture or prevertebral soft tissue swelling. 3. No focal cervical cord abnormality. Tray Santiago MD Brain MRI 09/09/16 0000 Signed Impressions: Service Date/Time: August 16:02 - CONCLUSION: 1. Diffuse FLAIR-weighted hyperintensities involving the caudate nuclei bilaterally, bilateral hummel radiata, as well as the bilateral parietal and occipital cortex consistent with the patient's clinical diagnosis of anoxic encephalopathy. 2. No acute hemorrhage, midline shift, extra-axial fluid collection or abnormal enhancement. 3. Small fluid level within the right sphenoid sinus. Tray Santiago MD Cervical Spine CT 09/07/16 1800 Signed Impressions: Service Date/Time: Wednesday, September 07, 2016 18:06 - CONCLUSION: 1. No fracture or subluxation. 2. Scattered groundglass nodules throughout the upper lobes, nonspecific but can be seen with hypersensitivity pneumonitis. Artem Madera MD Last Impressions Chest X-Ray 09/13/16 0600 Signed Impressions: Service Date/Time: Tuesday, September 13, 2016 04:49 - CONCLUSION: 1. Hazy opacity in both lungs without significant change. This may represent pulmonary edema which may be noncardiogenic. 2. Artifact projected over the right suprahilar region limiting visualization. Seth Breen MD Liver Ultrasound 09/12/16 Signed Impressions: Service Date/Time: Monday, September 12, 2016 16:15 - CONCLUSION: 1. 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 2. Pericholecystic fluid and gallbladder wall thickening raising the possibility of cholecystitis. A hepatobiliary scan may be helpful to confirm cystic duct obstruction if clinically indicated. 3. Gallbladder sludge. 4. Ascites. 5. Bilateral pleural effusions. 6. Mild hepatomegaly. 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 This is nonocclusive. A retrievable IVC filter was deployed below the main hepatic veins but it was necessary to cross an accessory right hepatic vein. Jose Armando Jackson Jr., MD Head CT 09/12/16 Signed Impressions: Service Date/Time: Monday, September 12, 2016 09:29 - CONCLUSION: Mild loss of lemos matter definition that can be seen with increasing intracranial pressure. Ricki Cavazos MD FACR Neck Magnetic Resonance Angiography 09/09/16 Signed Impressions: Service Date/Time: August 16:02 - CONCLUSION: 1. Moderate to severe smooth narrowing of the left common carotid artery and also moderate narrowing of the proximal right common carotid artery as well as narrowing of both proximal vertebral arteries likely related to recent hanging. Etiology could be related to vasospasm or recent extrinsic prolonged compression. The distal internal carotid arteries and vertebral artery have more normal calibers. Findings called to Dr. Bhatt at the time of dictation. Gideon Brown MD Cervical Spine MRI 09/09/16 Signed Impressions: Service Date/Time: August 16:02 - CONCLUSION: 1. Very minimal degenerative disc disease at C5-6. 2. No acute fracture or prevertebral soft tissue swelling. 3. No focal cervical cord abnormality. Tray Santiago MD Brain MRI 09/09/16 Signed Impressions: Service Date/Time: August 16:02 - CONCLUSION: 1. Diffuse FLAIR-weighted hyperintensities involving the caudate nuclei bilaterally, bilateral hummel radiata, as well as the bilateral parietal and occipital cortex consistent with the patient's clinical diagnosis of anoxic encephalopathy. 2. No acute hemorrhage, midline shift, extra-axial fluid collection or abnormal enhancement. 3. Small fluid level within the right sphenoid sinus. Tray Santiago MD Cervical Spine CT 09/07/16 1800 Signed Impressions: Service Date/Time: Wednesday, September 07, 2016 18:06 - CONCLUSION: 1. No fracture or subluxation. 2. Scattered groundglass nodules throughout the upper lobes, nonspecific but can be seen with hypersensitivity pneumonitis. Artem Madera MD Last Impressions Chest X-Ray 09/13/16 0600 Signed Impressions: Service Date/Time: Tuesday, September 13, 2016 04:49 - CONCLUSION: 1. Hazy opacity in both lungs without significant change. This may represent pulmonary edema which may be noncardiogenic. 2. Artifact projected over the right suprahilar region limiting visualization. Seth Breen MD Liver Ultrasound 09/12/16 0000 Signed Impressions: Service Date/Time: Monday, September 12, 2016 16:15 - CONCLUSION: 1. 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 2. Pericholecystic fluid and gallbladder wall thickening raising the possibility of cholecystitis. A hepatobiliary scan may be helpful to confirm cystic duct obstruction if clinically indicated. 3. Gallbladder sludge. 4. Ascites. 5. Bilateral pleural effusions. 6. Mild hepatomegaly. 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 This is nonocclusive. A retrievable IVC filter was deployed below the main hepatic veins but it was necessary to cross an accessory right hepatic vein. Jose Armando Jackson Jr., MD Head CT 09/12/16 0000 Signed Impressions: Service Date/Time: Monday, September 12, 2016 09:29 - CONCLUSION: Mild loss of lemos matter definition that can be seen with increasing intracranial pressure. Ricki Cavazos MD FACR Neck Magnetic Resonance Angiography 09/09/16 0000 Signed Impressions: Service Date/Time: August 16:02 - CONCLUSION: 1. Moderate to severe smooth narrowing of the left common carotid artery and also moderate narrowing of the proximal right common carotid artery as well as narrowing of both proximal vertebral arteries likely related to recent hanging. Etiology could be related to vasospasm or recent extrinsic prolonged compression. The distal internal carotid arteries and vertebral artery have more normal calibers. Findings called to Dr. Bhatt at the time of dictation. Gideon Brown MD Cervical Spine MRI 09/09/16 0000 Signed Impressions: Service Date/Time: August 16:02 - CONCLUSION: 1. Very minimal degenerative disc disease at C5-6. 2. No acute fracture or prevertebral soft tissue swelling. 3. No focal cervical cord abnormality. Tray Santiago MD Brain MRI 09/09/16 0000 Signed Impressions: Service Date/Time: August 16:02 - CONCLUSION: 1. Diffuse FLAIR-weighted hyperintensities involving the caudate nuclei bilaterally, bilateral hummel radiata, as well as the bilateral parietal and occipital cortex consistent with the patient's clinical diagnosis of anoxic encephalopathy. 2. No acute hemorrhage, midline shift, extra-axial fluid collection or abnormal enhancement. 3. Small fluid level within the right sphenoid sinus. Tray Santiago MD Cervical Spine CT 09/07/16 1800 Signed Impressions: Service Date/Time: Wednesday, September 07, 2016 18:06 - CONCLUSION: 1. No fracture or subluxation. 2. Scattered groundglass nodules throughout the upper lobes, nonspecific but can be seen with hypersensitivity pneumonitis. Artem Madera MD Attending Statement Neuro. Continue neuro checks. 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 Not improving Pulmonary. Continue mechanical ventilation. Unable to wean. Continue aggressive pulmonary toilette, nasotracheal suction, and breathing treatments with nebulizers. Nutrition. Status post PEG. Tube feedings Renal. Continue to monitor closely urine output, BUN and creatinine Endocrine. Continue to Monitor serial Acu checks and SSI as needed in detail ID. continue IV antibiotics for staph aereus. Leukopenia, resolved Thrombocytopenia consumptive-resovled IVC filter placed 09/12 due to inability to anticoagulate Continue Protonix for stress ulcer prophylaxis Continue [place] hose and SCD's for DVT prophylaxis Discharge planning in progress Jomar José MD Sep 23, 2016 10:01
[2016-09-23] MEDS: levETIRAcetam 1000 MG INJ 100 ML IV SCH ×2 (10:48→20:34)
--- NOTE | 2016-09-23 11:18 | HHI.PR ---
Neuropsych Emotional Emotional: UnabletoAssess: Emotional, Anxious/Fearful, Depressed/Sad, Hostile/ Resentful, Irritable/Angry/Frustrate, Labile, Constricted/Blunted Behavior Behavior: Unable to Asses: Behavior, Coping/Acceptance, Cooperative w/ Treatment, Motivation, Frustration Tolerance/[place], Impulsive/Agitated, Suicidal/ Homicidal Risk Cognitive Cognitive: Unable to Asses: Cognitive, Attention/Concentration, Confused/ Orientation, Insight/Awareness, Judgement/Problem-Solving, Memory Psychosocial Psychosocial: Intact: Psychosocial, Severe: Family/Other Adjustment, Realistic Expectation, Unable to Asses: Self-Esteem/Confidence Progress Notes/Response to Tx Contents of Sessions: Adjustment, Level of Consciousness Time with Patient: 30 minutes Premorbid psychological status Premorbid Cognitive, Emotional and Behavioral Status: Tenuous. The patient graduated high school and was planning to attend college, no work history, and presumed psychiatric history. Substance abuse history is unknown. Behavioral Reactions of Patient and Family/Support System: Unstable. The patients family is experiencing ongoing issues of adjustment given the nature of the injury, and this aspect of recovery will require ongoing monitoring. Specifically, the family's realistic expectations concerning recovery was inconsistent with the realities of the medical situation. Emotional/Behavioral Status of Patient and Family/Support System: Tenuous. Pertinent issues, if appropriate to this patients clinical care, are described in detail above. Maximizing acute care outcome Comfort care is recommended as this patient has no chance for a meaningful recovery from a neurocognitive and neurobehavioral standpoint. Anticipated Problems Specific issues are related to family adjustment and realistic expectations, which I am activity involved. Treatment Plan To provide further care in concert with the critical care team, provide specific information on an ongoing basis about the limitations of recovery given the severity of her neurological illness and to provide psychosocial support. [facility] Level: I:No response-total assistance Impression This patient suffered a severe anoxic brain injury and has demonstrated no neurobehavioral improvement. It is my clinical opinion that this patient has no chance for a meaningful recovery from this injury. 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 There has been no neurobehavioral change in this patient's condition. I have spoke with the grandmother yesterday , attempting today to speak with the mother, and also spoke with the boyfriend. My interactions are balancing comfortable relationship building and necessary clinical information regarding prognosis, specifically the lack thereof. The patient remains a [place]. I will continue to follow. Jose Rafael Manuel PhD Sep 23, 2016 11:18 am
--- NOTE | 2016-09-23 11:47 | HHI.HCSW ---
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 Shaking noted during conversation with grandmother at bedside. . Significant Family/Friend Grandmother and mother at bedside. Mother currently sleeping. Grandmother denies any questions or concerns at this time. Appears to be in good spirits, remaining hopeful. . Pertinent Social History Supported by mother, grandmother, and boyfriend. Grandmother tells me she raised Aziza. Also reports Aziza has a love for all things, specifically talks about her love for different animals during this visit. . Spiritual/[employer] Components Mother and grandmother supported by Digna Gao in community. previously told mother to "give her a month". Goals of care consistent with this at this time. . [place] Service Issues Mother desires to give patient a month to see improvements. Has declined completing any paperwork for placement per notes. . Proposed Soc Wrk Intervention Continued psychosocial and emotional support. . Follow Up Visit Palliative care will continue to follow throughout hospitalization. Pauline Jackson, REJI Sep 23, 2016 11:47
--- NOTE | 2016-09-23 15:48 | HHI.CCPN ---
Subjective Remarks/Hospital Course 19 years old was brought in as a trauma alert. He has had to hanged herself and was found by her roommate. Unknown time of hanging. When fire department arrived patient was in asystole. CPR was started and one round of meds were given as per ACLS protocol. There was return of spontaneous circulation soon after that. Patient was brought in getting breaths by BV. She had a blood pressure and half way to arriving to the ER she started having some spontaneous respirations. She continued to be a GCS 3 when she arrived. She is admitted to critical care unit and therapeutic hypothermia protocol is initiated. SUBJ 09/08/16: Patient achieving target temperature but developing severe shock. Levothroid had been increased to 30 mcg/m Mehdi-Synephrine added. Additional fluid boluses ordered currently on bicarbonate infusion additional one amp of bicarbonate given. Chest x-ray shows severe aspiration pneumonitis predominantly right lower lobe infiltrates. Zosyn 4.5 GM IV q8 started, give single dose of vanc 09/09/16: Patient is in the rewarming phase of hypothermia protocol. Once sedation was lightened and taken off the Nimbex, patient started developing tonic-clonic generalized seizure like activity. Bolused with a total of 6 mg Ativan in divided doses and restarted on Versed and propofol infusions. Loaded with Cerebyx 1 g and scheduled at 100 mg every 8 hours. Stat EEG pending. Neurology following 09/10/16: Remains on high dose of vasopressors, MRI brain shows evidence of anoxic brain injury. MRA neck bilateral common carotid narrowing. Start on aspirin get vascular surgery consult. No further seizure-like episodes noted. Pupils are equal bilaterally with slight withdrawal of right lower extremity to central pain. 09/11/16: Currently remains off all sedation in process. No noticeable improvement in neuro status, slight withdrawal x4. Aspirin started for bilateral common carotid narrowing-vascular surgery consult appreciated. Continue Cerebyx EEG sharp activity on eeg. MRI indicates diffuse anoxic brain injury with poor prognosis. EEG bihemispheric slowing and intermittent right central posterior sharp discharges which appear to be epileptiform. Dilantin level is therapeutic 09/12/16: Overnight had episodes myoclonus versus seizures. Neuro exam remains poor. No significant improvement. Low grade fever. Remains tachypneic on the ventilator. Restart propofol for vent synchrony 09/13/16: Neuro exam remains unchanged overnight. ICP monitor placed 09/12 for cerebral edema- ICP controlled with hyperosmolar therapy. 2 episodes of seizures vs myoclonus reported. Repeat EEG today. IVC filter placed 09/12/16 evening for large IVC thrombus. Unable to anticoagulate due to thrombocytopenia , cerebral edema-high risk of bleeding 09/14 EEG yesterday showed severe encephalopathy. ICP mainly 10-13 but intermittently spiked up to max of 22, improved with propofol bolus. Myoclonus noted with any tactile stimulation. 09/15 Comatose with myoclonus. ICP intermittently increased to 20, sometimes drifts down without intervention, sometimes improves with sedation. Extensor posturing. 09/16 Off continuous sedation. Comatose with myoclonus. Corneal reflex present on left, absent on right. ICP monitor removed today per NSG. 09/17: no significant neurologic improvement. off sedation. only intermittent ativan for myoclonus which improves symptoms. family meeting today, and family requests aggressive care, including trach/peg. 09/18: No change in neuro exam. Continued to spike high temperatures up to 102.5. CBC pending. I will discontinue Cerebyx start Keppra, check gallbladder ultrasound again and placed on empiric cefepime and single dose of vancomycin. Sputum culture Gram stain shows few GPC. On cooling blanket, and Tylenol. Motrin added. s/p Trach yesterday 09/19: no improvements or changes. sodium trending down. repeat sputum culture 09/17 growing staph aureus. KP pending. 09/20: No change in neuro exam. Overnight spike fever 103 again. Patient has bloody secretion from bilateral nares-she may have some acute sinusitis. Continue broad-spectrum antibiotics. Discontinue NG tube as the patient is getting PEG today Subjective: 09/21: PEG yesterday. no changes. sputum again growing MSSA. 09/22: Colonization, no pneumonia. 09/23: No change in neuro status. Objective Vital Signs Date Time Temp Pulse Resp B/P Pulse Ox O2 Delivery O2 Flow Rate FiO2 09/23/16 12:00 98.8 103 30 178/81 98 09/23/16 09:30 T-piece 35 09/21/16 20:25 6.00 Intake and Output 09/22/16 09/22/16 09/23/16 08:00 16:00 00:00 Intake Total 501 ml 658 ml 587 ml Balance 501 ml 658 ml 587 ml Result Diagram: 09/23/16 0558 09/23/16 0558 Imaging Last [address] 09/07/16 1800 Signed Impressions: Service Date/Time: Wednesday, September 07, 2016 18:06 - CONCLUSION: Normal examination. Artem Madera MD Chest X-Ray 09/07/16 1800 Signed Impressions: Service Date/Time: Wednesday, September 07, 2016 17:49 - CONCLUSION: Subtle densities in the upper lobes. Otherwise unremarkable chest. Artem Madera MD ADDENDUM: See above. Artem Madera MD Cervical Spine CT 09/07/16 1800 Signed Impressions: Service Date/Time: Wednesday, September 07, 2016 18:06 - CONCLUSION: 1. No fracture or subluxation. 2. Scattered groundglass nodules throughout the upper lobes, nonspecific but can be seen with hypersensitivity pneumonitis. Artem Madera MD Objective Remarks GENERAL: young female, lying in bed. trached Comatose SKIN: Warm and dry. HEAD: Normocephalic. Pupils are 4 mm reactive to 3 mm bilaterally. EYES: No scleral icterus. No injection or drainage. NECK: trachea midline. No JVD. trach in place. CARDIOVASCULAR: Tachycardic rhythm. No murmurs. RESPIRATORY: unlabored. equal chest rise. GASTROINTESTINAL: Abdomen soft, non-tender, distended. MUSCULOSKELETAL: No cyanosis, 1+ edema. NEURO: trached. off sedation except intermittent ativan/fentanyl. Pupils are 4 mm reactive to 3 mm bilaterally. Slight corneal reflex present on the left, absent on the right. No cough or gag. Disconjugate gaze. No spontaneous eye opening. General myoclonic movements on stimulation. To deep central and peripheral noxious stimuli patient showing extensor posturing A/P Assessment and Plan Assessment: 20yF s/p hanging event and s/p cardiac arrest with severe anoxic injury. family continues to want aggressive care. Status post tracheostomy , PEG 8. will work towards weaning to trach collar as tolerated. narrow spectrum of abx from cefepime to ancef for MSSA recurrent in the sputum. A/P NEURO: Severe anoxic brain injury Bilateral common carotid narrowing Attempted suicide by hanging Seizure Depression - MRI shows evidence of diffuse anoxic brain injury. MRA neck bilateral common carotid narrowing-vascular surgery consulted, no intervention. started aspirin - CT 09/12-loss salguero/white matter differentiation c/w cerebral edema. ICP monitor placed 09/12 , removed 09/16. - EEG 09/10 bilateral sharp activity, on Dilantin. Level therapeutic 09/12. DC Dilantin 09/18/16 due high fever, started Keppra - EEG 09/11 Encephalopathy, no sz. - EEG 09/13severe encephalopathy. (delta waves) - s/p induced hypothermia. - Neurology Dr. Wong following. He states prognosis is poor and recommended comfort measures. - NSG Dr. José states poor prognosis, recommends comfort care. - Toxicology negative - Ativan for symptomatic control for severe myoclonus. - Oxycodone for pain. Fentanyl prn CV: Shock resolved Status postcardiac arrest - Off Levophed which was used to maintain CPP Resp: Acute hypoxemic respiratory failure Pre-hospital Aspiration pneumonitis Acute lung injury - Intubated for hypoxemic respiratory failure from pre hospital aspiration - PRVC, ventilator bundle. DuoNeb every 6 hours and when necessary - Daily SBTs - Patient has evidence of aspiration on admission as indicated by right lower lobe infiltrate - s/p trach 09/17/16. Vijay Jackson and Kunal - daily trach collar trials. will attempt to wean fio2 < 28% in order to facilitate placement. GI: Transaminitis most likely from shock, resolved. Hyponatremia - Tube feedings Jevity 1.5 at 50 L per hour per nutrition recommendations. - s/p PEG 09/20 - repeat GB u/s without signs of cholecystitis 09/18 - Continue salt tabs 3gm po q8hr. - Had bowel and after mag citrate was given. - Liver ultrasound 09/12large nonocclusive thrombus and IVC. Renal: Acute kidney injury- resolved. Fluid overload- persistent. - monitor BUN/creatinine - anton removed and voiding on own. ID: Septic, neurogenic shock-resolved Aspiration pneumonia, prehospital High fever Sputum with MSSA 09/08. - Zosyn 4.5 g IV every 6 hours 09/08-09/15 .fever may be secondary to DVT. Off vancomycin. - Fever up to 103 GPC on sputum MSSA. Vancomycin 1 g IV 1. - sputum culture 09/17 staph aureus. de-escalate to Ancef 2gm iv q8h, total 10 day course of abx for recurrent MSSA pna. Endo: - Electrolyte replacement per protocol - Sliding-scale insulin if needed HEME: Leukopenia, resolved Thrombocytopenia consumptive-resovled Large IVC thrombus - Monitor CBC CMP coags. - IVC filter placed 09/12 due to inability to anticoagulate (thrombocytopenia) and cerebral edema - This was discussed with hematology Dr. Kwok and neurologist surgeon Dr. Davenport - Now platelets improved, Arixtra 7.5 mg daily from 09/18/16. 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 KP pending. given how difficult lab draws are for patient, would prefer Lovenox as opposed to coumadin, so will leave on Arixtra until KP comes back. may be forced to coumadinize. DVT GI prophylaxis - IVC filter in place. Continue po ppi.Arixtra started 09/18/16 Lines: - Right femoral cooling catheter and right brachial arterial line placed by Dr. England-DC both. L subclavian central line 09/10/16 -09/17 Findings of status myoclonus, persistent coma with extensor posturing vs absent motor response are consistent with poor prognosis for functional neurologic recovery. MRI demonstrates evidence of anoxic injury. Discussed with family poor prognosis and would expect her to require trach/PEG and be dependent for ADL in nursing facility. 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 She states that she "already had suffered plenty from her depression and psychological demons". However, after full and detailed conversation with Dr. Bragg and the palliative care team, they now want to pursue tracheostomy/PEG tube placement, and give her at least a few more weeks to attempt to improve. Congruent with family wishes, trach placed on 09/17/16. PEG 09/20. CM to look for placement. No change in neuro status. Gary Syed MD Sep 23, 2016 15:48
--- NOTE | 2016-09-23 21:32 | HHI.HCPN ---
Reason for visit a. To assist with evaluation and management of symptoms including: Dyspnea , possible pain; encephalopathy; myoclonus b. To assist medical decision maker(s) with: better understanding of current medical conditions; weighing benefits/burdens of medical treatment options; making medical treatment decisions. . . Subjective/Interval History No significant neurological change. Patient tolerating cfpen-kx-k-tube at time of my visit. PEG tube placed uneventfully on 09/20/16 -- patient now tolerating goal feeding rate No real change in severity or frequency of my clonus which is often triggered by any stimulation. At time of my visit, patient's grandmother is at the bedside. Patient's mother is sleeping on the couch in the room. Dr. Manuel has met with family to assist with family education on hypoxic brain injury, coma, and prognosis. I asked grandmother if she or the patient's mother had any additional questions for the team. There were no questions. Case management has approach the patient's mother regarding applying for Medicaid in order to assist with possible transfer for postacute care. Patient' s mother is refusing to consider discharge at this point in time and did not want to complete paperwork. . Family/friend interactions See above Advance Directives Living Will: Never completed Health Care Surrogate: Never completed Durable Power of Audit Lead: Never completed Objective Vital Signs Date Time Temp Pulse Resp B/P Pulse Ox O2 Delivery O2 Flow Rate FiO2 09/23/16 18:00 99 09/23/16 16:00 97.4 99 31 110/63 95 09/23/16 16:00 99 09/23/16 15:55 100 09/23/16 15:52 22 09/23/16 12:00 98.8 103 30 178/81 98 09/23/16 12:00 104 09/23/16 10:00 104 09/23/16 09:30 98 T-piece 35 09/23/16 08:00 97.6 101 28 133/90 09/23/16 06:00 101 09/23/16 04:00 101 09/23/16 04:00 98.9 101 29 115/65 97 09/23/16 02:00 103 09/23/16 00:28 28 09/23/16 00:00 98.9 99 29 140/59 95 09/23/16 00:00 98 09/22/16 22:00 98 Intake & Output 09/23/16 09/23/16 07:00 19:00 Intake Total 1282 ml 316 ml Balance 1282 ml 316 ml Intake IV Total 348 ml 316 ml Tube Feeding 534 ml Other 400 ml # Voids 6 # Bowel Movements 4 1 . Physical Exam CONSTITUTIONAL/GENERAL: This is an adequately nourished patient, in no apparent distress, on the ventilator. Initially without tremors, but fine tremor vs myoclonus begins after the stimulation of basic exam. TUBES/LINES/DRAINS: Tracheostomy; PEG; peripheral ivs. SCDs; SKIN: No jaundice, rashes, or lesions. No wounds seen anteriorly. Skin temperature appropriate. Not diaphoretic. HEAD: Atraumatic. Normocephalic. EYES: Pupils 2-3 mm and minimally reactive. No scleral icterus. small subconjunctival hemorrhage on left. Fundi not examined. ENT: Nose without bleeding or purulent drainage. NECK: Trachea midline. Tracheostomy wound healing well. CARDIOVASCULAR: Tachycardic ; Regular rhythm without murmurs, gallops, or rubs. No JVD. Peripheral pulses symmetric. RESPIRATORY/CHEST: Symmetric, unlabored respirations. No wheezes or crackles. GASTROINTESTINAL: Abdomen soft, nondistended. PEG tube in place and functioning. MUSCULOSKELETAL: Extremities without clubbing, cyanosis. 1+ edema of the distal extremities. No mottling or clubbing. LYMPHATICS:Not examined. NEUROLOGICAL: Unresponsive to voice, touch, or painful stimuli. Near continuous tremor / myoclonus noted involving all four extremities once she is stimulated from exam. PSYCHIATRIC: Unable to evaluate due to her clinical condition . Diagnostic Tests Laboratory Laboratory Tests Test 09/21/16 09/21/16 09/22/16 09/23/16 03:52 10:30 04:20 05:58 White Blood Count 8.5 TH/MM3 6.5 TH/MM3 9.4 TH/MM3 (4.0-11.0) (4.0-11.0) (4.0-11.0) Red Blood Count 3.84 MIL/MM3 3.44 MIL/MM3 4.01 MIL/MM3 (4.00-5.30) (4.00-5.30) (4.00-5.30) Hemoglobin 10.5 GM/DL 9.6 GM/DL 11.3 GM/DL (11.6-15.3) (11.6-15.3) (11.6-15.3) Hematocrit 31.6 % 28.1 % 32.7 % (35.0-46.0) (35.0-46.0) (35.0-46.0) Mean Corpuscular Volume 82.2 FL 81.7 FL 81.6 FL (80.0-100.0) (80.0-100.0) (80.0-100.0) Mean Corpuscular Hemoglobin 27.3 PG 27.8 PG 28.2 PG (27.0-34.0) (27.0-34.0) (27.0-34.0) Mean Corpuscular Hemoglobin 33.2 % 34.1 % 34.5 % Concent (32.0-36.0) (32.0-36.0) (32.0-36.0) Red Cell Distribution Width 14.8 % 14.6 % 14.8 % (11.6-17.2) (11.6-17.2) (11.6-17.2) Platelet Count 467 TH/MM3 636 TH/MM3 678 TH/MM3 (150-450) (150-450) (150-450) Mean Platelet Volume 7.5 FL 6.4 FL 6.6 FL (7.0-11.0) (7.0-11.0) (7.0-11.0) Sodium Level 136 MEQ/L 141 MEQ/L 142 MEQ/L (136-145) (136-145) (136-145) Potassium Level 6.0 MEQ/L 4.1 MEQ/L 3.3 MEQ/L 3.9 MEQ/L (3.5-5.1) (3.5-5.1) (3.5-5.1) (3.5-5.1) Chloride Level 102 MEQ/L 107 MEQ/L 108 MEQ/L (98-107) (98-107) (98-107) Carbon Dioxide Level 24.7 MEQ/L 28.1 MEQ/L 26.8 MEQ/L (21.0-32.0) (21.0-32.0) (21.0-32.0) Anion Gap 9 MEQ/L (5-15) 6 MEQ/L (5-15) 7 MEQ/L (5-15) Blood Urea Nitrogen 12 MG/DL (7-18) 11 MG/DL (7-18) 11 MG/DL (7-18) Creatinine 0.39 MG/DL 0.52 MG/DL 0.50 MG/DL (0.50-1.00) (0.50-1.00) (0.50-1.00) Estimat Glomerular Filtration 212 ML/MIN 152 ML/MIN 159 ML/MIN Rate (>89) (>89) (>89) Random Glucose 79 MG/DL 98 MG/DL 103 MG/DL (74-106) (74-106) (74-106) Calcium Level 8.5 MG/DL 8.1 MG/DL 9.0 MG/DL (8.5-10.1) (8.5-10.1) (8.5-10.1) . Result Diagram: 09/23/16 0558 09/23/16 0558 Procedures Prakash bolt 09/12/16 (and subsequent removal) Tracheostomy PEG tube placement . 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 . (2) pain 0-10 Scale: Unable to quantify Comment: Possible sources of pain include trauma from hanging; tracheostomy wound; prolonged bedbound status; venous access catheters; anton; etc. Pertinent Non-Medical Issues Psychosocial: Unmarried, no children. Spiritual: Not spiritual or restorationist, but family reports that they are Congregation and quite spiritual. Their rabbi has participated in care during this hospitalization. [facility] has told mother "she should give it a month." Legal: The patient lacks capacity for decision-making and will not regain that capacity. The patient's father has not been a part of her life since , and his whereabouts are unknown. The patient is unmarried, and her mother is thus the decision making proxy. Ethical issues impacting care: None . Important Contacts Mother: Agnieszka "Reymundo" [facility] [phone] Grandmother: Loy "Edie" Winograd [phone] Boyfriend: Seth Thibodeaux (Alex) [phone] . Prognosis The patient's prognosis is poor, and clearly she will not recover significant brain function. If the goals become comfort oriented, she is appropriate for withdrawal of life support, and hospice care. . Code Status: Full Code Plan * FULL CODE, per patient's mother on 09/17/16. The patient's mother notes that her Congregation tradition "would not allow me to make her a DNR." has told mother to "give it a month." * GOALS: The patient's mother has a clear understanding of the brain injury and poor prognosis, but wants to "allow more time for a possible miracle." She saw no reason to delay proceeding with trach and PEG, as she is not going to with withdraw life support within the upcoming few days. She wants all current care to continue, and for the patient to remain FULL CODE. told her "to give it a month." * DECISION-MAKING: The patient lacks capacity for decision-making and there is no reasonable medical probability of recovering capacity. There has been no contact with the patient's father since the patient was born, and the decision making proxy is the patient's mother "Reymundo." * Pain: She is receiving scheduled oxycodone and prn fentanyl. The prn fentanyl appears to be be given to supplement scheduled clonazepam and prn lorazepam for myoclonus. It is difficult to know if there is any actual discomfort. No further recommendations at this time. * Dyspnea is being managed via trach - to t-tube. If there is dyspnea, it is probably also helped by opiates and benzos currently being given. No further recommendations at this time. * Encephalopathy is likely secondary to the anoxic injury with neurology feeling there is poor prognosis for any type of meaningful recovery. I have no further medication recommendations at this time. 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 We could either increase the clonazepam or add valproic acid. If we go the latter route, can start at 15mg/kg day increasing by 5-10 mg/kg per day each week with the therapeutic range usually between 1200 and 2000 mg /day. * Evaluation for heparin induced thrombocytopenia under way. May have to transition to coumadin if HIT w/u is positive. * Dr. Manuel will continue to meet with family to help with education regarding hypoxic brain injury, coma, and prognosis. * Palliative care geriatric social work professor visited today to provide additional support for family * Palliative care we'll work with medical team to provide family with frequent information and explanations as they have requested. * Palliative Care will continue to follow the patient during this hospitalization to assist with symptom management and to further clarify goals of medical treatment as the clinical course evolves. . Attestation To help prompt me to consider important information that might be impacting today's encounter and assessment, information from prior notes written by myself or my colleagues may have been "brought forward" into today's note. My signature on this note, however, is an attestation that I personally performed the exam, history, and/or decision-making noted today, and, unless otherwise indicated, the interactions with patient, family, and staff as well as the review of records all occurred today. I also attest that the listed assessment and stated plan reflect my best clinical judgment today based on the combination of historical information, prior notes, and today's exam/ interactions. When time spent is documented, it refers only to time spent today by the signer, or if indicated, combined time spent today by collaborating physician/nurse practitioner. Sergey Troncoso MD Sep 23, 2016 21:32
[2016-09-24] VITALS (13 sets, daily range): BP systolic 102–122; BP diastolic 58–74; PULSE 99–115; RESP 15–33; TEMP 98.3–99.2; O2SAT 92–100
[2016-09-24] MEDS: PROPRANOLOL HCL 20 MG TAB PO SCH ×5 (00:03→17:47)
[2016-09-24] MEDS: SODIUM CHLORIDE 1 GRAM TAB PO SCH ×3 (00:03→16:57)
[2016-09-24] MEDS: ceFAZolin 2 GM PREMIX 50 ML IV SCH ×3 (00:04→16:57)
[2016-09-24] MEDS: clonazePAM 1 MG TAB PO SCH ×3 (01:32→17:15)
[2016-09-24] MEDS: LORazepam 2 MG/ML VIAL IV PRN (01:32)
[2016-09-24] MEDS: CHLORHEXIDINE GLUCONATE 2 % 1 PACK (2 CLOTHS) TOP SCH (04:00)
[2016-09-24] MEDS: FONDAPARINUX SODIUM 7.5 MG/0.6 ML SYRINGE SQ SCH (05:18)
[2016-09-24 06:10] LABS: MEAN CELL VOLUME 81.7 FL (80.0-100.0); MEAN CORPUSCULAR HEMOGLOBIN 27.5 PG (27.0-34.0); MEAN CORPUSCULAR HGB CONC 33.6 % (32.0-36.0); PLATELET COUNT 764 TH/MM3 (150-450); RED BLOOD COUNT 3.91 MIL/MM3 (4.00-5.30); RED CELL DISTRIBUTION WIDTH 14.7 % (11.6-17.2); REVIEW FLAG FINAL; WHITE BLOOD COUNT 12.4 TH/MM3 (4.0-11.0)
[2016-09-24 06:30] LABS: BICARBONATE 24.8 MEQ/L (21.0-32.0)
[2016-09-24 06:31] LABS: POTASSIUM 4.9 MEQ/L (3.5-5.1)
[2016-09-24] MEDS: LACTULOSE SYRUP 20 GM/30 ML CUP PO SCH ×2 (08:07→12:05)
[2016-09-24] MEDS: DOCUSATE SODIUM 100 MG/10 ML UDC PO SCH ×2 (08:07→21:58)
[2016-09-24] MEDS: BISACODYL 10 MG SUPP RECTAL SCH (08:07)
[2016-09-24] MEDS: ARTIFICIAL TEARS OPTH SOLN 15 ML BTL EACH EYE SCH (08:07)
[2016-09-24] MEDS: PANTOPRAZOLE SOD 40 MG DELAYED RELEASE TAB PO SCH (08:17)
[2016-09-24] MEDS: POTASSIUM CHLORIDE 25 MEQ EFFERVESCENT TAB PO SCH (08:17)
[2016-09-24] MEDS: levETIRAcetam 1000 MG INJ 100 ML IV SCH ×2 (08:21→21:57)
--- NOTE | 2016-09-24 10:29 | HHI.PR ---
Subjective Remarks No change in neurological status. Patient is noninteractive. Some myoclonus noted. Objective Vitals Vital Signs Date Time Temp Pulse Resp B/P Pulse Ox O2 Delivery O2 Flow Rate FiO2 09/24/16 10:00 106 09/24/16 08:24 97 T-piece 09/24/16 08:00 108 09/24/16 08:00 98.5 108 24 108/59 100 09/24/16 06:00 104 09/24/16 04:00 99.0 101 33 122/58 97 09/24/16 04:00 102 09/24/16 02:32 26 09/24/16 02:00 101 09/24/16 00:00 99.2 102 19 105/66 94 09/24/16 00:00 99 09/23/16 22:00 101 09/23/16 20:00 99.0 98 29 105/55 100 09/23/16 20:00 102 09/23/16 18:00 99 09/23/16 16:00 97.4 99 31 110/63 95 09/23/16 16:00 99 09/23/16 15:55 100 09/23/16 12:00 98.8 103 30 178/81 98 09/23/16 12:00 104 I/O 09/23/16 09/23/16 09/23/16 09/24/16 09/24/16 09/24/16 06:59 14:59 22:59 06:59 14:59 22:59 Intake Total 695 ml 316 ml 1310 ml 532 ml Balance 695 ml 316 ml 1310 ml 532 ml Intake IV Total 219 ml 316 ml 445 ml 107 ml Tube Feeding 276 ml 665 ml 225 ml Other 200 ml 200 ml 200 ml # Voids 4 3 5 # Bowel Movements 3 1 0 2 Result Diagram: 09/24/16 0555 09/24/16 0550 Objective Remarks GENERAL: Patient is nonverbal and noninteractive. Trached. CARDIOVASCULAR: Normal rate and regular rhythm without murmurs, gallops, or rubs. RESPIRATORY: Breath sounds equal and clear to auscultation bilaterally. GASTROINTESTINAL: Abdomen soft, non-tender, non-distended. PEG in place MUSCULOSKELETAL: Extremities with occasional myoclonus on the left lower extremity NEURO: Nonverbal, noninteractive. A/P Assessment and Plan 20-year-old with severe anoxic brain injury after cardiac arrest. Patient found hanged for unknown amount of time. Patient has not made any progress. All specialist recommends comfort measures. However family continues to rule out aggressive care. She is status post tracheostomy on 09/17/16 and PEG placement on 09/20. Narrow spectrum of abx from cefepime to ancef for MSSA recurrent in the sputum. Severe anoxic brain injury Bilateral common carotid narrowing Attempted suicide by hanging Seizure Depression - MRI shows evidence of diffuse anoxic brain injury. MRA neck bilateral common carotid narrowing-vascular surgery consulted, no intervention. started aspirin - CT 09/12-loss salguero/white matter differentiation c/w cerebral edema. ICP monitor placed 09/12 , removed 09/16. - EEG 09/10 bilateral sharp activity, on Dilantin. Level therapeutic 09/12. DC Dilantin 09/18/16 due high fever, started Keppra - EEG 09/11 Encephalopathy, no sz. - EEG 09/13severe encephalopathy. (delta waves) - s/p induced hypothermia. - Neurology Dr. Wong following. He states prognosis is poor and recommended comfort measures. - NSG Dr. José states poor prognosis, recommends comfort care. - Toxicology negative - Ativan for symptomatic control for severe myoclonus. - Oxycodone for pain. Fentanyl prn Shock resolved Status postcardiac arrest - Off Levophed which was used to maintain CPP Acute hypoxemic respiratory failure Pre-hospital Aspiration pneumonitis Acute lung injury - Intubated for hypoxemic respiratory failure from pre hospital aspiration - Patient has evidence of aspiration on admission as indicated by right lower lobe infiltrate - s/p trach 09/17/16. Vijay Jackson and Kunal - daily trach collar trials. will attempt to wean fio2 < 28% in order to facilitate placement. Transaminitis most likely from shock, resolved. Hyponatremia - Tube feedings Jevity 1.5 at 50 L per hour per nutrition recommendations. - s/p PEG 09/20 - repeat GB u/s without signs of cholecystitis 09/18 - Continue salt tabs 3gm po q8hr. - Liver ultrasound 09/12large nonocclusive thrombus and IVC. Septic, neurogenic shock-resolved Aspiration pneumonia, prehospital High fever Sputum with MSSA 09/08. - sputum culture 09/17 staph aureus. de-escalate to Ancef 2gm iv q8h, total 10 day course of abx for recurrent MSSA pna. Leukopenia, resolved Thrombocytopenia consumptive-resovled Large IVC thrombus - Monitor CBC CMP coags. - IVC filter placed 09/12 due to inability to anticoagulate (thrombocytopenia) and cerebral edema - This was discussed with hematology Dr. Kwok and neurologist surgeon Dr. Davenport - Now platelets improved, Arixtra 7.5 mg daily from 09/18/16. 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 KP pending. given how difficult lab draws are for patient, would prefer Lovenox as opposed to Coumadin, so will leave on Arixtra until KP comes back. DVT GI prophylaxis - IVC filter in place. Continue po ppi.Arixtra started 09/18/16 Poor prognosis for any functional neurological recovery. Palliative care following. Case management for DC planning. Adrian Phillips MD Sep 24, 2016 10:29 recovery. MRI demonstrates evidence of anoxic injury. Discussed with family poor prognosis and would expect her to require trach/PEG and be dependent for ADL in nursing facility. 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 She states that she "already had suffered plenty from her depression and psychological demons". However, after full and detailed conversation with Dr. Bragg and the palliative care team, they now want to pursue tracheostomy/PEG tube placement, and give her at least a few more weeks to attempt to improve. Congruent with family wishes, trach placed on 09/17/16. PEG 8/7. CM to look for placement. No change in neuro status. Adrian Phillips MD Sep 24, 2016 10:29
--- NOTE | 2016-09-24 11:38 | HHI.PR ---
Neuropsych Emotional Emotional: UnabletoAssess: Emotional, Anxious/Fearful, Depressed/Sad, Hostile/ Resentful, Irritable/Angry/Frustrate, Labile, Constricted/Blunted Behavior Behavior: Unable to Asses: Behavior, Coping/Acceptance, Cooperative w/ Treatment, Motivation, Frustration Tolerance/[place], Impulsive/Agitated, Suicidal/ Homicidal Risk Cognitive Cognitive: Unable to Asses: Cognitive, Attention/Concentration, Confused/ Orientation, Insight/Awareness, Judgement/Problem-Solving, Memory Psychosocial Psychosocial: Severe: Psychosocial, Family/Other Adjustment, Realistic Expectation, Unable to Asses: Self-Esteem/Confidence Progress Notes/Response to Tx Contents of Sessions: Adjustment, Level of Consciousness Time with Patient: 30 minutes Premorbid psychological status Premorbid Cognitive, Emotional and Behavioral Status: Tenuous. The patient graduated high school and was planning to attend college, no work history, and noted long psychiatric history. Substance abuse history is unknown. Behavioral Reactions of Patient and Family/Support System: Unstable. The patients family is experiencing ongoing issues of adjustment given the nature of the injury, and this aspect of recovery will require ongoing monitoring. Specifically, the family's realistic expectations concerning recovery was inconsistent with the realities of the medical situation. Emotional/Behavioral Status of Patient and Family/Support System: Tenuous. Pertinent issues, if appropriate to this patients clinical care, are described in detail above. Maximizing acute care outcome Comfort care is recommended as this patient has no chance for a meaningful recovery from a neurocognitive and neurobehavioral standpoint. Anticipated Problems Specific issues are related to family adjustment and realistic expectations, which I am activity involved. Treatment Plan To provide further care in concert with the critical care team, provide specific information on an ongoing basis about the limitations of recovery given the severity of her neurological illness and to provide psychosocial support. [facility] Level: I:No response-total assistance Impression This patient suffered a severe anoxic brain injury and has demonstrated no neurobehavioral improvement. It is my clinical opinion that this patient has no chance for a meaningful recovery from this injury. 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 Grandmother was present and discussion with her concerning psychosocial needs; mother was present briefly but left the room. Yesterday, I spoke with mom and grandmother at length, and followed up with Palliative Care. The patient has made no neurobehavioral improvement, and remains at a [facility] IV. I will continue to follow. Jose Rafael Manuel PhD Sep 24, 2016 11:38 am
--- NOTE | 2016-09-24 13:10 | HHI.NSPN ---
Note Status Status: Progress Note Interval History Diagnosis anoxic encephalopathy Interval History The patient has a 20-year-old female brought in as a Trauma Alert. She was found hanging from a pull-up bar. She was in asystole at the scene, treated with epinephrine and regained a pressure after that. Initially she was unresponsive. GCS was 3. The patient has been unresponsive. There has been no seizure activity at present. 09/13. No clinical improvement. Comatose. Myoclonic jerks 09/14 has not shown any clinical improvement 09/15. Remains intubated and comatose without improvement 09/17. no significant neurologic improvement. off sedation. only intermittent ativan for myoclonus 09/18. No change in neuro exam. Continued to spike high temperatures up to 102.5. Will discontinue Cerebyx start Keppra. Obtain gallbladder ultrasound. Start empiric cefepime and vancomycin. S/p Trach yesterday 09/19. No neuro changes. no improvements or changes. sodium trending down. repeat sputum culture 09/17 growing staph aureus 09/20. Overnight fevers to 103 again. No neurological improvement. She has bloody secretion from bilateral nares, suspected acute sinusitis. Continue broad- spectrum antibiotics. She is getting a PEG today 09/21. Status post PEG yesterday. no changes. sputum again growing MSSA. 09/22 Ventilated. No changes. PEG functional 09/23. No clinical improvement. Discharge planning in progress 09/26. Remains ventilator dependent without improvement Labs, Micro, & Vital Signs Results Date Time Temp Pulse Resp B/P Pulse Ox O2 Delivery O2 Flow Rate FiO2 09/24/16 12:00 98.6 109 26 106/74 100 09/24/16 12:00 109 09/24/16 10:00 106 09/24/16 08:24 97 T-piece 09/24/16 08:00 108 09/24/16 08:00 98.5 108 24 108/59 100 09/24/16 06:00 104 09/24/16 04:00 99.0 101 33 122/58 97 09/24/16 04:00 102 09/24/16 02:32 26 09/24/16 02:00 101 09/24/16 00:00 99.2 102 19 105/66 94 09/24/16 00:00 99 09/23/16 22:00 101 09/23/16 20:00 99.0 98 29 105/55 100 09/23/16 20:00 102 09/23/16 18:00 99 09/23/16 16:00 97.4 99 31 110/63 95 09/23/16 16:00 99 09/23/16 15:55 100 09/24/16 07:00 Intake Total 2158 ml Balance 2158 ml Constitutional Vital Signs Date Time Temp Pulse Resp B/P Pulse Ox O2 Delivery O2 Flow Rate FiO2 09/24/16 12:00 98.6 109 26 106/74 100 09/24/16 12:00 109 09/24/16 10:00 106 09/24/16 08:24 97 T-piece 09/24/16 08:00 108 09/24/16 08:00 98.5 108 24 108/59 100 09/24/16 06:00 104 09/24/16 04:00 99.0 101 33 122/58 97 09/24/16 04:00 102 09/24/16 02:32 26 09/24/16 02:00 101 09/24/16 00:00 99.2 102 19 105/66 94 09/24/16 00:00 99 09/23/16 22:00 101 09/23/16 20:00 99.0 98 29 105/55 100 09/23/16 20:00 102 09/23/16 18:00 99 09/23/16 16:00 97.4 99 31 110/63 95 09/23/16 16:00 99 09/23/16 15:55 100 09/24/16 07:00 Intake Total 2158 ml Balance 2158 ml Review of Systems/Exam Exam She is intubated and sedated. No response to pain. General myoclonic movements on stimulation, off sedation Cranial Nerves: Pupils 2mm, non-reactive to light. Pupils are 4 mm reactive to 3 mm bilaterally. Slight corneal reflex present on the left, absent on the right. No cough or gag. Disconjugate gaze. No spontaneous eye opening. Face musculature appeared symmetrical at rest. Face sensation, olfaction, visual phillips, and hearing cannot be adequately assessed due to his neurological condition. The patient has a corneal reflex. SHe has no gag reflex. The sternocleidomastoid and trapezius are symmetrical. Cervical Spine: Her neck is soft, supple, without nuchal rigidity. Motor: Extension response to pain Reflexes: Deep tendon reflexes are trace in the biceps, triceps, and brachioradialis, bilaterally, in the upper extremities. In the lower extremities, the patellar and ankles TRACE. There is a bilateral silent response to plantar stim. There is no clonus Sensory: On examination there is extension response to painful stimuli Cerebellar: Examination cannot be adequately assessed due to the patient's neurological condition. Medications Current Medications Current Medications Etomidate 40 mg 40 mg STK-MED ONCE .ROUTE ; Start 09/07/16 at 17:53; Stop at 17:54; Status DC Propofol (Diprivan 1000 Mg/100ml Inj) 100 ml @ As Directed STK-MED ONCE .ROUTE ; Start 09/07/16 at 18:14; Stop 09/07/16 at 18:15; Status DC Succinylcholine Chloride 200 mg 200 mg STK-MED ONCE .ROUTE ; Start 09/07/16 at 18:38; Stop 09/07/16 at 18:39; Status DC Sodium Chloride (NS 1000 ml Inj) 1,000 ml @ 100 mls/hr Q10H IV Last administered on 09/07/16 19:30; Start 09/07/16 at 19:30; Stop 09/08/16 at 03:31 ; Status DC Sodium Chloride (NS Flush) 2 ml UNSCH PRN IV FLUSH FLUSH AFTER USING IV ACCESS ; Start 09/07/16 at 18:45; Stop 09/12/16 at 17:55; Status DC Enalaprilat (Vasotec Inj) 1.25 mg Q8H PRN IV SBP>180, DBP>95; Start 09/07/16 at 18:45; Stop 09/17/16 at 13:35; Status DC Ondansetron HCl (Zofran Inj) 4 mg Q6H PRN IV NAUSEA OR VOMITING; Start at 18:45 Pantoprazole Sodium (Protonix Inj) 40 mg Q24H IVP Last administered on 20:45; Start 09/07/16 at 20:00; Stop 09/17/16 at 13:35; Status DC Docusate Sodium (Colace) 100 mg BID PO Last administered on 09/09/16 21:33; Start 09/07/16 at 21:00; Stop 09/10/16 at 09:20; Status DC Magnesium Hydroxide (Milk Of Magnesia Liq) 30 ml Q6H PRN PO CONSTIPATION; Start 09/07/16 at 18:45 Miscellaneous Information 1 [id number] Last administered on 09/07/16 18:45; Start 09/07/16 at 18:45 Chlorhexidine Gluconate (Chlorhexidine 2% Cloth) Taper DAILY@04 TOP Last administered on 09/24/16 04:00; Start 09/08/16 at 04:00; Stop 09/04/17 at 03:59 Chlorhexidine Gluconate 3 pack 3 pack UNSCH PRN TOP HYGIENIC CARE; Start at 18:45 Propofol 100 ml @ As Directed STK-MED ONCE .ROUTE Last administered on 01:42; Start 09/07/16 at 19:20; Stop 09/07/16 at 19:21; Status DC Midazolam HCl (Versed 100 Mg/ ml Inj) 100 ml @ 0 mls/hr TITRATE IV Last administered on 09/07/16 21:33; Start 09/07/16 at 21:30; Stop 09/11/16 at 11:27 ; Status DC Lorazepam 1 mg 1 mg Q1H PRN IV SEIZURES Last administered on 09/24/16 01:32; Start 09/07/16 at 22:00 Midazolam HCl 100 ml @ 0 mls/hr TITRATE IV ; Start 09/07/16 at 22:00; Stop 09/07 at 22:00; Status DC Miscellaneous Information ml @ 0 mls/hr UNSCH IV ; Start 09/07/16 at 22:00 Sodium Chloride (NS Flush) 2 ml UNSCH PRN IV FLUSH FLUSH AFTER USING IV ACCESS Last administered on 09/19/16 19:58; Start 09/07/16 at 22:00 Sodium Chloride 2 ml 2 ml UNSCH PRN IV FLUSH IV FLUSH Last administered on 09/24 21:57; Start 09/07/16 at 22:00 Sodium Chloride (NS 1000 ml Inj) 1,000 ml @ 2,000 mls/hr Q30M IV Last administered on 09/08/16 00:23; Start 09/07/16 at 22:00; Stop 09/07/16 at 22:59 ; Status DC Artificial Tears 1 applic 1 applic Q4H PRN EACH EYE SEE LABEL COMMENTS Last administered on 09/23/16 09:06; Start 09/07/16 at 22:00 Cisatracurium Besylate 100 mg/ Sodium Chloride 250 ml @ 0 mls/hr TITRATE PRN IV ONLY IF SHIVERING Last administered on 09/08/16 08:21; Start 09/07/16 at 21: 30; Stop 09/09/16 at 07:48; Status DC Norepinephrine Bitartrate 4 mg/ Sodium Chloride 250 ml @ 0 mls/hr TITRATE IV ; Start 09/07/16 at 21:30; Stop 09/08/16 at 12:56; Status DC Sodium Chloride 2,000 ml @ 0 mls/hr NOW IV ; Start 09/07/16 at 23:00; Stop at 23:56; Status DC Potassium Chloride 100 ml @ 50 mls/hr Q2H PRN IV For Potassium 2.8 - 3.2 mEq/ L Last administered on 09/13/16 09:02; Start 09/08/16 at 00:30; Stop 09/25/16 at 07:30; Status DC Potassium Chloride (KCl 20 Meq Premix Inj) 100 ml @ 50 mls/hr Q2H PRN IV For Potassium 2.8 - 3.2 mEq/L Last administered on 09/08/16 18:20; Start 09/08/16 at 00:30; Stop 09/25/16 at 07:30; Status DC Potassium Bicarb/ Potassium Chloride 50 meq 50 meq UNSCH PRN PO For Potassium 3.3 - 3.5 mEq/L; Start 09/08/16 at 00:30; Stop 09/25/16 at 07:30; Status DC Potassium Chloride 100 ml @ 25 mls/hr UNSCH PRN IV For Potassium 3.3 - 3.5 mEq /L Last administered on 09/15/16 04:38; Start 09/08/16 at 00:30; Stop 09/25/16 at 07:30; Status DC Potassium Chloride 100 ml @ 50 mls/hr Q2H PRN IV For Potassium 3.3 - 3.5 mEq/ L Last administered on 09/14/16 18:35; Start 09/08/16 at 00:30; Stop 09/25/16 at 07:30; Status DC Magnesium Sulfate/ Sodium Chloride (Magnesium Sulfate Inj/NS Inj) 100 ml @ 50 mls/hr UNSCH PRN IV For Magnesium 0.9 - 1.1 mg/dL; Start 09/08/16 at 00:30; Stop 09/25/16 at 07:30; Status DC Magnesium Oxide 800 mg 800 mg UNSCH PRN PO For Magnesium 1.2 - 1.6 mg/dL; Start 09/08/16 at 00:30; Stop 09/25/16 at 07:30; Status DC Magnesium Sulfate/ Sodium Chloride (Magnesium Sulfate Inj/NS Inj) 100 ml @ 50 mls/hr UNSCH PRN IV For Magnesium 1.2 - 1.6 mg/dL Last administered on 07:11; Start 09/08/16 at 00:30; Stop 09/25/16 at 07:30; Status DC Potassium Phosphate 2000 mg 2,000 mg Q4H PRN PO For Phosphorus < 2.5 mg/dL; Start 09/08/16 at 00:30; Stop 09/25/16 at 07:30; Status DC Sodium Phosphate/ Sodium Chloride (Sodium Phosphate Inj/NS 250 ml Inj) 250 ml @ 42 mls/hr UNSCH PRN IV For Phosphorus < 2.5 mg/dL; Start 09/08/16 at 00:30; Stop 09/25/16 at 07:30; Status DC Potassium Phosphate 2000 mg 2,000 mg UNSCH PRN PO/TUBE SEE LABEL COMMENTS; Start 09/08/16 at 00:30; Stop 09/25/16 at 07:30; Status DC Potassium Phosphate 30 mmol/ Sodium Chloride 260 ml @ 42 mls/hr UNSCH PRN IV SEE LABEL COMMENTS; Start 09/08/16 at 00:30; Stop 09/25/16 at 07:30; Status DC Propofol 100 ml @ As Directed STK-MED ONCE .ROUTE ; Start 09/08/16 at 01:36; Stop 09/08/16 at 01:37; Status DC Propofol (Diprivan 1000 Mg/100ml Inj) 100 ml @ 0 mls/hr TITRATE IV Last administered on 09/16/16 11:59; Start 09/08/16 at 02:00 Vecuronium Taiban 10 mg 10 mg STK-MED ONCE .ROUTE ; Start 09/08/16 at 02:33; Stop 09/08/16 at 02:34; Status DC Sodium Chloride (NS 1000 ml Inj) 1,000 ml @ 0 mls/hr NOW IV Last administered on 09/08/16 02:44; Start 09/08/16 at 02:45; Stop 09/08/16 at 03:20; Status DC Vecuronium Taiban 10 mg 10 mg NOW IV Last administered on 09/08/16 02:43; Start 09/08/16 at 02:35; Stop 09/08/16 at 02:46; Status DC Sodium Bicarbonate 150 meq/Dextrose 1,150 ml @ 100 mls/hr [id number] IV Last administered on 09/08/16 03:53; Start 09/08/16 at 04:00; Stop 09/08/16 at 12:56 ; Status DC Fentanyl Citrate (fentaNYL DRIP) 250 ml @ 0 mls/hr TITRATE IV Last administered on 09/08/16 05:06; Start 09/08/16 at 05:00; Stop 09/11/16 at 11:27 ; Status DC Phenylephrine HCl (Neosynephrine Inj) 10 mg STK-MED ONCE .ROUTE ; Start at 07:00; Stop 09/08/16 at 07:02; Status DC Phenylephrine HCl 10 mg 10 mg STK-MED ONCE .ROUTE ; Start 09/08/16 at 07:06; Stop 09/08/16 at 07:07; Status DC Piperacillin Sod/ Tazobactam Sod (Zosyn 4.5 Gm Premix) 100 ml @ 200 mls/hr Q6H IV Last administered on 09/16/16 02:36; Start 09/08/16 at 08:00; Stop 09/16/16 at 06:00; Status DC Terbutaline Sulfate 1 mg 1 mg UNSCH PRN SQ For Extravasation; Start 09/08/16 at 07:30; Stop 09/08/16 at 13:02; Status DC Phenylephrine HCl 160 mg/Dextrose 500 ml @ 0 mls/hr TITRATE IV ; Start 09/08/16 at 07:30; Stop 09/08/16 at 12:57; Status DC Sodium Chloride (NS 1000 ml Inj) 1,000 ml @ 999 mls/hr BOLUS ONCE IV Last administered on 09/08/16 07:30; Start 09/08/16 at 07:30; Stop 09/08/16 at 08:30 ; Status DC Albumin Human 25 gm 25 gm ONCE ONCE IV Last administered on 09/08/16 08:05; Start 09/08/16 at 08:00; Stop 09/08/16 at 08:01; Status DC Vancomycin HCl 1000 mg/Sodium Chloride 250 ml @ 250 mls/hr ONCE ONCE IV Last administered on 09/08/16 09:01; Start 09/08/16 at 08:30; Stop 09/08/16 at 09:29 ; Status DC Sodium Bicarbonate (Sodium Bicarbonate 8.4% Inj) 50 ml @ As Directed STK-MED ONCE .ROUTE ; Start 09/08/16 at 08:49; Stop 09/08/16 at 08:50; Status DC Sodium Bicarbonate 100 meq 100 meq STAT ONCE IV Last administered on 09:00; Start 09/08/16 at 11:00; Stop 09/08/16 at 11:01; Status DC Norepinephrine Bitartrate/Sodium Chloride (Levophed Inj/NS 250 ml Inj) 250 ml @ 0 mls/hr TITRATE IV Last administered on 09/09/16 17:54; Start 09/08/16 at 13: 00; Stop 09/09/16 at 11:11; Status DC Terbutaline Sulfate 1 mg 1 mg UNSCH PRN SQ For Extravasation; Start 09/08/16 at 13:00; Stop 09/09/16 at 17:47; Status DC Sodium Bicarbonate 150 meq/Sterile Water 1,150 ml @ 150 mls/hr Q7H40M IV Last administered on 09/09/16 05:26; Start 09/08/16 at 15:00; Stop 09/09/16 at 07:47 ; Status DC Sodium Chloride 1,000 ml @ 0 mls/hr BOLUS ONCE IV Last administered on 14:00; Start 09/08/16 at 14:15; Stop 09/08/16 at 14:16; Status DC Sodium Chloride 1,000 ml @ 0 mls/hr BOLUS ONCE IV ; Start 09/08/16 at 14:30; Stop 09/08/16 at 14:31; Status Cancel Sodium Chloride (NS 1000 ml Inj) 1,000 ml @ 999 mls/hr BOLUS ONCE IV Last administered on 09/08/16 18:00; Start 09/08/16 at 18:00; Stop 09/08/16 at 19:00 ; Status DC Lorazepam (Ativan Inj) 2 mg STK-MED ONCE .ROUTE ; Start 09/09/16 at 06:53; Stop 09/09/16 at 06:54; Status DC Lorazepam (Ativan Inj) 4 mg STK-MED ONCE .ROUTE ; Start 09/09/16 at 06:57; Stop 09/09/16 at 06:58; Status DC Phenylephrine HCl (Neosynephrine Inj) 40 mg STK-MED ONCE .ROUTE ; Start at 07:33; Stop 09/09/16 at 07:34; Status DC Phenylephrine HCl 40 mg 40 mg STK-MED ONCE .ROUTE ; Start 09/09/16 at 07:34; Stop 09/09/16 at 07:35; Status DC Fosphenytoin Sodium/Sodium Chloride (Cerebyx Inj/NS Inj) 70 ml @ 280 mls/hr ONCE ONCE IV Last administered on 09/09/16 08:15; Start 09/09/16 at 09:00; Stop 09/09/16 at 09:14; Status DC Fosphenytoin Sodium (Cerebyx Inj) 100 mgpe Q8HR IV Last administered on 23:34; Start 09/09/16 at 14:00; Stop 09/18/16 at 04:56; Status DC Lorazepam 6 mg 6 mg ONCE ONCE IV Last administered on 09/09/16 07:00; Start 09/09/16 at 08:00; Stop 09/09/16 at 08:01; Status DC Phenylephrine HCl/ Dextrose (Neosynephrine Inj/D5W 500 ml Inj) 500 ml @ 0 mls/ hr TITRATE IV ; Start 09/09/16 at 09:45; Stop 09/09/16 at 09:45; Status DC Terbutaline Sulfate 1 mg 1 mg UNSCH PRN SQ FOR EXTRAVASATION PROTOCOL; Start at 09:45; Stop 09/13/16 at 08:38; Status DC Phenylephrine HCl 40 mg/Sodium Chloride 500 ml @ 0 mls/hr TITRATE IV Last administered on 09/09/16 17:55; Start 09/09/16 at 09:45; Stop 09/09/16 at 17:47 ; Status DC Vancomycin HCl 1000 mg/Sodium Chloride 250 ml @ 250 mls/hr ONCE ONCE IV Last administered on 09/09/16 11:23; Start 09/09/16 at 10:45; Stop 09/09/16 at 11:44 ; Status DC Pharmacy Profile Note 0 ml @ 0 mls/hr UNSCH OTHER ; Start 09/09/16 at 10:45; Stop 09/13/16 at 08:39; Status DC Norepinephrine Bitartrate 4 mg/ Sodium Chloride 250 ml @ 0 mls/hr TITRATE IV Last administered on 09/09/16 15:33; Start 09/09/16 at 11:15; Stop 09/09/16 at 17:47; Status DC Vancomycin HCl/ Sodium Chloride (Vancomycin Inj/ NS 250 ml Inj) 250 ml @ 250 mls/hr Q8H IV Last administered on 09/11/16 05:52; Start 09/09/16 at 20:00; Stop 09/11/16 at 12:58; Status DC Miscellaneous Information SPECIFIC LAB TO BE DRAWN:VANCOMYCIN TROUGH DATE TO... ONCE ONCE .XX Last administered on 09/10/16 11:27; Start 09/10/16 at 11:45; Stop 09/10/16 at 11:46; Status DC Sodium Chloride (NS 1000 ml Inj) 1,000 ml @ 999 mls/hr Q1H1M IV Last administered on 09/09/16 11:00; Start 09/09/16 at 11:45; Stop 09/09/16 at 13:45 ; Status DC Gadodiamide 20 ml 20 ml STK-MED ONCE IV Last administered on 09/09/16 16:39; Start 09/09/16 at 16:39; Stop 09/09/16 at 16:40; Status DC Phenylephrine HCl/ Dextrose (Neosynephrine Inj/D5W 500 ml Inj) 500 ml @ 0 mls/ hr TITRATE IV ; Start 09/09/16 at 18:00; Stop 09/09/16 at 18:00; Status DC Terbutaline Sulfate 1 mg 1 mg UNSCH PRN SQ FOR EXTRAVASATION PROTOCOL; Start at 18:00; Stop 09/13/16 at 08:38; Status DC Norepinephrine Bitartrate 16 mg/ Dextrose 250 ml @ 0 mls/hr TITRATE IV ; Start 09/09/16 at 18:00; Stop 09/09/16 at 18:00; Status DC Phenylephrine HCl 160 mg/Sodium Chloride 500 ml @ 0 mls/hr TITRATE IV Last administered on 09/10/16 04:52; Start 09/09/16 at 18:00; Stop 09/11/16 at 11:27 ; Status DC Norepinephrine Bitartrate/Sodium Chloride (Levophed Inj/NS 250 ml Inj) 250 ml @ 0 mls/hr TITRATE IV Last administered on 09/10/16 04:52; Start 09/09/16 at 18: 00; Stop 09/13/16 at 08:39; Status DC Aspirin (Aspirin Chew) 81 mg DAILY CHEW Last administered on 09/13/16 10:09; Start 09/10/16 at 09:00; Status Hold Artificial Tears (Tears Naturale Opth Soln) 1 drop BID EACH EYE Last administered on 09/26/16 09:00; Start 09/10/16 at 21:00 Docusate Sodium (Colace Liq) 100 mg BID PO Last administered on 09/26/16 09:00 ; Start 09/10/16 at 21:00 Midazolam HCl (Versed Inj) 5 mg STK-MED ONCE .ROUTE ; Start 09/10/16 at 09:43; Stop 09/10/16 at 09:44; Status DC Acetaminophen (Tylenol 650 Mg/ 20 ml Liq) 650 mg NOW ONCE PO Last administered on 09/10/16 11:19; Start 09/10/16 at 10:30; Stop 09/10/16 at 10:31 ; Status DC Dextrose (D50w (Syr) Inj) 50 ml STK-MED ONCE .ROUTE ; Start 09/10/16 at 12:49; Stop 09/10/16 at 12:50; Status DC Dextrose (D50w (Syr) Inj) 50 ml NOW ONCE IV PUSH Last administered on 12:45; Start 09/10/16 at 13:30; Stop 09/10/16 at 13:31; Status DC Miscellaneous Information SPECIFIC LAB TO BE DRAWN:VANCOMYCIN TROUGH DATE TO... ONCE ONCE .XX Last administered on 09/11/16 11:45; Start 09/11/16 at 11:45; Stop 09/11/16 at 11:46; Status DC Midazolam HCl (Versed Inj) 3 mg ONCE ONCE IV PUSH Last administered on 09:44; Start 09/10/16 at 14:15; Stop 09/10/16 at 14:16; Status DC Dextrose 50 ml 50 ml NOW ONCE IV PUSH Last administered on 09/10/16 16:09; Start 09/10/16 at 16:00; Stop 09/10/16 at 16:34; Status DC Sodium Chloride (NS 1000 ml Inj) 1,000 ml @ 100 mls/hr Q10H IV Last administered on 09/15/16 13:20; Start 09/11/16 at 12:00; Stop 09/15/16 at 19:09; Status DC Propranolol HCl (Inderal) 20 mg Q8HR PO Last administered on 09/12/16 04:44; Start 09/11/16 at 14:00; Stop 09/12/16 at 17:13; Status DC Magnesium Citrate (Citroma Liq) 300 ml ONCE ONCE NG ; Start 09/12/16 at 09:00; Stop 09/12/16 at 09:01; Status DC Lactulose 30 ml 30 ml QID PO Last administered on 09/22/16 16:43; Start at 09:00; Stop 09/24/16 at 15:54; Status DC Vancomycin HCl/ Sodium Chloride (Vancomycin Inj/ NS 250 ml Inj) 250 ml @ 250 mls/hr Q12H IV Last administered on 09/12/16 21:29; Start 09/12/16 at 10:00; Stop 09/13/16 at 08:39; Status DC Miscellaneous Information SPECIFIC LAB TO BE CHANDU... ONCE ONCE .XX ; Start at 09:45; Stop 09/14/16 at 09:45; Status DC Furosemide (Lasix Inj) 20 mg ONCE ONCE IV PUSH Last administered on 09/12/16 12:04; Start 09/12/16 at 09:30; Stop 09/12/16 at 09:31; Status DC Mannitol 12.5 gm 12.5 gm Q8H IV Last administered on 09/12/16 15:37; Start at 14:00; Stop 09/12/16 at 21:51; Status DC Sodium Chloride 188 meq/Sodium Chloride 1,047 ml @ 20 mls/hr Q24H IV Last administered on 09/14/16 19:49; Start 09/12/16 at 16:00; Stop 09/16/16 at 15:33; Status DC Norepinephrine Bitartrate (Levophed-Dextrose Drip) 250 ml @ 0 mls/hr TITRATE IV Last administered on 09/16/16 05:37; Start 09/12/16 at 18:00; Stop 09/16/16 at 08:02; Status DC Terbutaline Sulfate (Brethine Inj) 1 mg UNSCH PRN SQ For Extravasation; Start 09/12/16 at 18:00; Stop 09/16/16 at 08:02; Status DC Iohexol (Omnipaque 350 Inj) 30 ml STK-MED ONCE IV Last administered on 21:02; Start 09/12/16 at 21:02; Stop 09/12/16 at 21:03; Status DC Mannitol (Mannitol Inj) 12.5 gm Q8H IV Last administered on 09/16/16 06:56; Start 09/12/16 at 23:00; Stop 09/17/16 at 04:13; Status DC Potassium Bicarb/ Potassium Chloride (K-Lyte Cl Eff) 25 meq DAILY PO Last administered on 09/26/16 09:00; Start 09/13/16 at 09:00 Magnesium Citrate (Citroma Liq) 300 ml ONCE ONCE PO ; Start 09/13/16 at 08:30; Stop 09/13/16 at 08:41; Status DC Bisacodyl (Dulcolax Supp) 10 mg DAILY RECTAL Last administered on 09/13/16 10: 09; Start 09/13/16 at 09:00 Oxycodone HCl (Roxicodone) 5 mg Q6H OG-TUBE Last administered on 09/26/16 13: 08; Start 09/14/16 at 20:00 Fentanyl Citrate (fentaNYL INJ) 100 mcg ONCE ONCE IV PUSH ; Start 09/14/16 at 20 :00; Stop 09/14/16 at 20:01; Status DC Fentanyl Citrate (fentaNYL INJ) 50 mcg Q1H PRN IV PUSH PAIN, ICP >20 Last administered on 09/22/16 23:16; Start 09/14/16 at 19:00 Acetaminophen 650 mg 650 mg Q4H PRN PO FEVER Last administered on 09/26/16 15: 20; Start 09/15/16 at 20:30 Norepinephrine Bitartrate/Sodium Chloride (Levophed Inj/NS 250 ml Inj) 250 ml @ 0 mls/hr TITRATE IV Last administered on 09/16/16 09:11; Start 09/16/16 at 08:15 ; Stop 09/16/16 at 15:33; Status DC Terbutaline Sulfate (Brethine Inj) 1 mg UNSCH PRN SQ For Extravasation; Start 09/16/16 at 08:15; Stop 09/17/16 at 13:35; Status DC Pantoprazole Sodium (Protonix) 40 mg DAILY PO Last administered on 09/26/16 09 :00; Start 09/18/16 at 09:00 Furosemide (Lasix Inj) 20 mg ONCE ONCE IV PUSH Last administered on 09/17/16 14:30; Start 09/17/16 at 13:30; Stop 09/17/16 at 13:42; Status DC Cisatracurium Besylate (Nimbex Inj) 20 mg ONCE ONCE IV Last administered on 14:30; Start 09/17/16 at 13:30; Stop 09/17/16 at 13:43; Status DC Midazolam HCl (Versed Inj) 10 mg ONCE ONCE IV PUSH Last administered on 14:53; Start 09/17/16 at 13:30; Stop 09/17/16 at 13:44; Status DC Fentanyl Citrate 250 mcg 250 mcg ONCE ONCE IV PUSH Last administered on 13:30; Start 09/17/16 at 13:30; Stop 09/17/16 at 13:42; Status DC Cefazolin Sodium/ Sodium Chloride (Ancef Inj/NS Inj) 100 ml @ 200 mls/hr WOMEN'S GARMENT FITTER IV ; Start 09/20/16 at 16:00; Stop 09/23/16 at 15:59; Status DC Clonazepam (KlonoPIN) 1 mg Q8H PO Last administered on 09/26/16 17:30; Start 09/17/16 at 18:00 Lorazepam (Ativan Inj) 3 mg NOW IV Last administered on 09/18/16 04:04; Start 09/18/16 at 04:00; Stop 09/18/16 at 05:20; Status DC Acetaminophen (Ofirmev Inj) 1,000 mg NOW IV Last administered on 09/18/16 04:03 ; Start 09/18/16 at 04:00; Stop 09/18/16 at 05:20; Status DC Ibuprofen 600 mg 600 mg Q6H PRN PO fever >100.5 Last administered on 09/18/16 20:48; Start 09/18/16 at 04:15; Stop 09/18/16 at 20:55; Status DC Levetriacetam 100 ml @ 400 mls/hr Q12HR IV Last administered on 09/26/16 10: 46; Start 09/18/16 at 09:00 Cefepime HCl 2000 mg/Sodium Chloride 100 ml @ 200 mls/hr Q8H IV ; Start at 05:00; Stop 09/18/16 at 05:18; Status DC Vancomycin HCl/ Sodium Chloride (Vancomycin Inj/ NS 250 ml Inj) 250 ml @ 250 mls/hr ONCE ONCE IV Last administered on 09/18/16 08:40; Start 09/18/16 at 05: 00; Stop 09/18/16 at 05:59; Status DC Lorazepam 3 mg 3 mg NOW IV Last administered on 09/18/16 05:19; Start 09/18/16 at 05:30; Stop 09/18/16 at 06:30; Status DC Cefepime HCl/ Sodium Chloride (Maxipime Inj/NS Inj) 100 ml @ 200 mls/hr Q8H IV Last administered on 09/21/16 05:57; Start 09/18/16 at 06:00; Stop 09/21/16 at 08:02; Status DC Fondaparinux (Arixtra Inj) 7.5 mg Q24H SQ Last administered on 09/26/16 05:42 ; Start 09/18/16 at 06:00 Propranolol HCl 20 mg 20 mg Q6HR PO Last administered on 09/26/16 17:30; Start 09/18/16 at 06:45 Sodium Chloride/ Sodium Chloride (Sodium Chloride 23.4% Inj/NS 1000 ml Inj) 1, 047 ml @ 20 mls/hr Q24H IV Last administered on 09/18/16 19:50; Start 09/18/16 at 20:00; Stop 09/19/16 at 07:57; Status DC Ibuprofen (Motrin Liq) 600 mg Q6H PRN PO FEVER > 100.5 Last administered on 09/19 14:20; Start 09/18/16 at 21:00 Sodium Chloride (Sodium Chloride) 3 gm Q8H PO Last administered on 09/26/16 15 :20; Start 09/19/16 at 08:00 Acetaminophen (Ofirmev Inj) 1,000 mg UNSCH X1 IV Last administered on 22:52; Start 09/19/16 at 22:15; Stop 09/19/16 at 23:45; Status DC Propofol 300 mg 300 mg STK-MED ONCE IV ; Start 09/20/16 at 15:16; Stop 09/20/16 at 16:16; Status DC Cefazolin Sodium/ Dextrose (Ancef 2 Gm Premix) 50 ml @ 100 mls/hr Q8H IV Last administered on 09/26/16 15:20; Start 09/21/16 at 08:00; Stop 09/27/16 at 07:59 Medical Decision Making MDM Remarks Last Impressions Liver Ultrasound 09/18/16 0000 Signed Impressions: Service Date/Time: Sunday, September 18, 2016 09:27 - CONCLUSION: 1. There is sludge within the gallbladder. No other findings are present to indicate acute cholecystitis. 2. Mild splenomegaly. Miller Lee MD Chest X-Ray 09/18/16 0000 Signed Impressions: Service Date/Time: Sunday, September 18, 2016 05:01 - CONCLUSION: 1. Right perihilar edema versus pneumonia. There has been no significant change when compared to the prior exam. 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 This is nonocclusive. A retrievable IVC filter was deployed below the main hepatic veins but it was necessary to cross an accessory right hepatic vein. Jose Armando Jackson Jr., MD Head CT 09/12/16 0000 Signed Impressions: Service Date/Time: Monday, September 12, 2016 09:29 - CONCLUSION: Mild loss of lemos matter definition that can be seen with increasing intracranial pressure. Ricki Cavazos MD FACR Neck Magnetic Resonance Angiography 09/09/16 0000 Signed Impressions: Service Date/Time: August 16:02 - CONCLUSION: 1. Moderate to severe smooth narrowing of the left common carotid artery and also moderate narrowing of the proximal right common carotid artery as well as narrowing of both proximal vertebral arteries likely related to recent hanging. Etiology could be related to vasospasm or recent extrinsic prolonged compression. The distal internal carotid arteries and vertebral artery have more normal calibers. Findings called to Dr. Bhatt at the time of dictation. Gideon Brown MD Cervical Spine MRI 09/09/16 0000 Signed Impressions: Service Date/Time: August 16:02 - CONCLUSION: 1. Very minimal degenerative disc disease at C5-6. 2. No acute fracture or prevertebral soft tissue swelling. 3. No focal cervical cord abnormality. Tray Santiago MD Brain MRI 09/09/16 0000 Signed Impressions: Service Date/Time: August 16:02 - CONCLUSION: 1. Diffuse FLAIR-weighted hyperintensities involving the caudate nuclei bilaterally, bilateral hummel radiata, as well as the bilateral parietal and occipital cortex consistent with the patient's clinical diagnosis of anoxic encephalopathy. 2. No acute hemorrhage, midline shift, extra-axial fluid collection or abnormal enhancement. 3. Small fluid level within the right sphenoid sinus. Tray Santiago MD Cervical Spine CT 09/07/16 1800 Signed Impressions: Service Date/Time: Wednesday, September 07, 2016 18:06 - CONCLUSION: 1. No fracture or subluxation. 2. Scattered groundglass nodules throughout the upper lobes, nonspecific but can be seen with hypersensitivity pneumonitis. Artem Madera MD Last Impressions Liver Ultrasound 09/18/16 0000 Signed Impressions: Service Date/Time: Sunday, September 18, 2016 09:27 - CONCLUSION: 1. There is sludge within the gallbladder. No other findings are present to indicate acute cholecystitis. 2. Mild splenomegaly. Miller Lee MD Chest X-Ray 09/18/16 Signed Impressions: Service Date/Time: Sunday, September 18, 2016 05:01 - CONCLUSION: 1. Right perihilar edema versus pneumonia. There has been no significant change when compared to the prior exam. 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 This is nonocclusive. A retrievable IVC filter was deployed below the main hepatic veins but it was necessary to cross an accessory right hepatic vein. Jose Armando Jackson Jr., MD Head CT 09/12/16 Signed Impressions: Service Date/Time: Monday, September 12, 2016 09:29 - CONCLUSION: Mild loss of lemos matter definition that can be seen with increasing intracranial pressure. Ricki Cavazos MD FACR Neck Magnetic Resonance Angiography 09/09/16 Signed Impressions: Service Date/Time: August 16:02 - CONCLUSION: 1. Moderate to severe smooth narrowing of the left common carotid artery and also moderate narrowing of the proximal right common carotid artery as well as narrowing of both proximal vertebral arteries likely related to recent hanging. Etiology could be related to vasospasm or recent extrinsic prolonged compression. The distal internal carotid arteries and vertebral artery have more normal calibers. Findings called to Dr. Bhatt at the time of dictation. Gideon Brown MD Cervical Spine MRI 09/09/16 Signed Impressions: Service Date/Time: August 16:02 - CONCLUSION: 1. Very minimal degenerative disc disease at C5-6. 2. No acute fracture or prevertebral soft tissue swelling. 3. No focal cervical cord abnormality. Tray Santiago MD Brain MRI 09/09/16 Signed Impressions: Service Date/Time: August 16:02 - CONCLUSION: 1. Diffuse FLAIR-weighted hyperintensities involving the caudate nuclei bilaterally, bilateral hummel radiata, as well as the bilateral parietal and occipital cortex consistent with the patient's clinical diagnosis of anoxic encephalopathy. 2. No acute hemorrhage, midline shift, extra-axial fluid collection or abnormal enhancement. 3. Small fluid level within the right sphenoid sinus. Tray Santiago MD Cervical Spine CT 09/07/16 1800 Signed Impressions: Service Date/Time: Wednesday, September 07, 2016 18:06 - CONCLUSION: 1. No fracture or subluxation. 2. Scattered groundglass nodules throughout the upper lobes, nonspecific but can be seen with hypersensitivity pneumonitis. Artem Madera MD Last Impressions Liver Ultrasound 09/18/16 0000 Signed Impressions: Service Date/Time: Sunday, September 18, 2016 09:27 - CONCLUSION: 1. There is sludge within the gallbladder. No other findings are present to indicate acute cholecystitis. 2. Mild splenomegaly. Miller Lee MD Chest X-Ray 09/18/16 0000 Signed Impressions: Service Date/Time: Sunday, September 18, 2016 05:01 - CONCLUSION: 1. Right perihilar edema versus pneumonia. There has been no significant change when compared to the prior exam. 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 This is nonocclusive. A retrievable IVC filter was deployed below the main hepatic veins but it was necessary to cross an accessory right hepatic vein. Jose Armando Jackson Jr., MD Head CT 09/12/16 0000 Signed Impressions: Service Date/Time: Monday, September 12, 2016 09:29 - CONCLUSION: Mild loss of lemos matter definition that can be seen with increasing intracranial pressure. Ricki Cavazos MD FACR Neck Magnetic Resonance Angiography 09/09/16 0000 Signed Impressions: Service Date/Time: August 16:02 - CONCLUSION: 1. Moderate to severe smooth narrowing of the left common carotid artery and also moderate narrowing of the proximal right common carotid artery as well as narrowing of both proximal vertebral arteries likely related to recent hanging. Etiology could be related to vasospasm or recent extrinsic prolonged compression. The distal internal carotid arteries and vertebral artery have more normal calibers. Findings called to Dr. Bhatt at the time of dictation. Gideon Brown MD Cervical Spine MRI 09/09/16 0000 Signed Impressions: Service Date/Time: August 16:02 - CONCLUSION: 1. Very minimal degenerative disc disease at C5-6. 2. No acute fracture or prevertebral soft tissue swelling. 3. No focal cervical cord abnormality. Tray Santiago MD Brain MRI 09/09/16 0000 Signed Impressions: Service Date/Time: August 16:02 - CONCLUSION: 1. Diffuse FLAIR-weighted hyperintensities involving the caudate nuclei bilaterally, bilateral hummel radiata, as well as the bilateral parietal and occipital cortex consistent with the patient's clinical diagnosis of anoxic encephalopathy. 2. No acute hemorrhage, midline shift, extra-axial fluid collection or abnormal enhancement. 3. Small fluid level within the right sphenoid sinus. Tray Santiago MD Cervical Spine CT 09/07/16 1800 Signed Impressions: Service Date/Time: Wednesday, September 07, 2016 18:06 - CONCLUSION: 1. No fracture or subluxation. 2. Scattered groundglass nodules throughout the upper lobes, nonspecific but can be seen with hypersensitivity pneumonitis. Artem Madera MD Last Impressions Liver Ultrasound 09/18/16 Signed Impressions: Service Date/Time: Sunday, September 18, 2016 09:27 - CONCLUSION: 1. There is sludge within the gallbladder. No other findings are present to indicate acute cholecystitis. 2. Mild splenomegaly. Miller Lee MD Chest X-Ray 09/18/16 Signed Impressions: Service Date/Time: Sunday, September 18, 2016 05:01 - CONCLUSION: 1. Right perihilar edema versus pneumonia. There has been no significant change when compared to the prior exam. 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 This is nonocclusive. A retrievable IVC filter was deployed below the main hepatic veins but it was necessary to cross an accessory right hepatic vein. Jose Armando Jackson Jr., MD Head CT 09/12/16 0000 Signed Impressions: Service Date/Time: Monday, September 12, 2016 09:29 - CONCLUSION: Mild loss of lemos matter definition that can be seen with increasing intracranial pressure. Ricki Cavazos MD FACR Neck Magnetic Resonance Angiography 09/09/16 0000 Signed Impressions: Service Date/Time: August 16:02 - CONCLUSION: 1. Moderate to severe smooth narrowing of the left common carotid artery and also moderate narrowing of the proximal right common carotid artery as well as narrowing of both proximal vertebral arteries likely related to recent hanging. Etiology could be related to vasospasm or recent extrinsic prolonged compression. The distal internal carotid arteries and vertebral artery have more normal calibers. Findings called to Dr. Bhatt at the time of dictation. Gideon Brown MD Cervical Spine MRI 09/09/16 0000 Signed Impressions: Service Date/Time: August 16:02 - CONCLUSION: 1. Very minimal degenerative disc disease at C5-6. 2. No acute fracture or prevertebral soft tissue swelling. 3. No focal cervical cord abnormality. Tray Santiago MD Brain MRI 09/09/16 0000 Signed Impressions: Service Date/Time: August 16:02 - CONCLUSION: 1. Diffuse FLAIR-weighted hyperintensities involving the caudate nuclei bilaterally, bilateral hummel radiata, as well as the bilateral parietal and occipital cortex consistent with the patient's clinical diagnosis of anoxic encephalopathy. 2. No acute hemorrhage, midline shift, extra-axial fluid collection or abnormal enhancement. 3. Small fluid level within the right sphenoid sinus. Tray Santiago MD Cervical Spine CT 09/07/16 1800 Signed Impressions: Service Date/Time: Wednesday, September 07, 2016 18:06 - CONCLUSION: 1. No fracture or subluxation. 2. Scattered groundglass nodules throughout the upper lobes, nonspecific but can be seen with hypersensitivity pneumonitis. Artem Madera MD Last Impressions Liver Ultrasound 09/18/16 0000 Signed Impressions: Service Date/Time: Sunday, September 18, 2016 09:27 - CONCLUSION: 1. There is sludge within the gallbladder. No other findings are present to indicate acute cholecystitis. 2. Mild splenomegaly. Miller Lee MD Chest X-Ray 09/18/16 0000 Signed Impressions: Service Date/Time: Sunday, September 18, 2016 05:01 - CONCLUSION: 1. Right perihilar edema versus pneumonia. There has been no significant change when compared to the prior exam. 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 This is nonocclusive. A retrievable IVC filter was deployed below the main hepatic veins but it was necessary to cross an accessory right hepatic vein. Jose Armando Jackson Jr., MD Head CT 09/12/16 0000 Signed Impressions: Service Date/Time: Monday, September 12, 2016 09:29 - CONCLUSION: Mild loss of lemos matter definition that can be seen with increasing intracranial pressure. Ricki Cavazos MD FACR Neck Magnetic Resonance Angiography 09/09/16 0000 Signed Impressions: Service Date/Time: August 16:02 - CONCLUSION: 1. Moderate to severe smooth narrowing of the left common carotid artery and also moderate narrowing of the proximal right common carotid artery as well as narrowing of both proximal vertebral arteries likely related to recent hanging. Etiology could be related to vasospasm or recent extrinsic prolonged compression. The distal internal carotid arteries and vertebral artery have more normal calibers. Findings called to Dr. Bhatt at the time of dictation. Gideon Brown MD Cervical Spine MRI 09/09/16 0000 Signed Impressions: Service Date/Time: August 16:02 - CONCLUSION: 1. Very minimal degenerative disc disease at C5-6. 2. No acute fracture or prevertebral soft tissue swelling. 3. No focal cervical cord abnormality. Tray Santiago MD Brain MRI 09/09/16 0000 Signed Impressions: Service Date/Time: August 16:02 - CONCLUSION: 1. Diffuse FLAIR-weighted hyperintensities involving the caudate nuclei bilaterally, bilateral hummel radiata, as well as the bilateral parietal and occipital cortex consistent with the patient's clinical diagnosis of anoxic encephalopathy. 2. No acute hemorrhage, midline shift, extra-axial fluid collection or abnormal enhancement. 3. Small fluid level within the right sphenoid sinus. Tray Santiago MD Cervical Spine CT 09/07/16 1800 Signed Impressions: Service Date/Time: Wednesday, September 07, 2016 18:06 - CONCLUSION: 1. No fracture or subluxation. 2. Scattered groundglass nodules throughout the upper lobes, nonspecific but can be seen with hypersensitivity pneumonitis. Artem Madera MD Last Impressions Liver Ultrasound 09/12/16 0000 Signed Impressions: Service Date/Time: Monday, September 12, 2016 16:15 - CONCLUSION: 1. 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 2. Pericholecystic fluid and gallbladder wall thickening raising the possibility of cholecystitis. A hepatobiliary scan may be helpful to confirm cystic duct obstruction if clinically indicated. 3. Gallbladder sludge. 4. Ascites. 5. Bilateral pleural effusions. 6. Mild hepatomegaly. 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 This is nonocclusive. A retrievable IVC filter was deployed below the main hepatic veins but it was necessary to cross an accessory right hepatic vein. Jose Armando Jackson Jr., MD Head CT 09/12/16 0000 Signed Impressions: Service Date/Time: Monday, September 12, 2016 09:29 - CONCLUSION: Mild loss of lemos matter definition that can be seen with increasing intracranial pressure. Ricki Cavazos MD FACR Neck Magnetic Resonance Angiography 09/09/16 0000 Signed Impressions: Service Date/Time: August 16:02 - CONCLUSION: 1. Moderate to severe smooth narrowing of the left common carotid artery and also moderate narrowing of the proximal right common carotid artery as well as narrowing of both proximal vertebral arteries likely related to recent hanging. Etiology could be related to vasospasm or recent extrinsic prolonged compression. The distal internal carotid arteries and vertebral artery have more normal calibers. Findings called to Dr. Bhatt at the time of dictation. Gideon Brown MD Cervical Spine MRI 09/09/16 0000 Signed Impressions: Service Date/Time: August 16:02 - CONCLUSION: 1. Very minimal degenerative disc disease at C5-6. 2. No acute fracture or prevertebral soft tissue swelling. 3. No focal cervical cord abnormality. Tray Santiago MD Brain MRI 09/09/16 0000 Signed Impressions: Service Date/Time: August 16:02 - CONCLUSION: 1. Diffuse FLAIR-weighted hyperintensities involving the caudate nuclei bilaterally, bilateral hummel radiata, as well as the bilateral parietal and occipital cortex consistent with the patient's clinical diagnosis of anoxic encephalopathy. 2. No acute hemorrhage, midline shift, extra-axial fluid collection or abnormal enhancement. 3. Small fluid level within the right sphenoid sinus. Tray Santiago MD Cervical Spine CT 09/07/16 1800 Signed Impressions: Service Date/Time: Wednesday, September 07, 2016 18:06 - CONCLUSION: 1. No fracture or subluxation. 2. Scattered groundglass nodules throughout the upper lobes, nonspecific but can be seen with hypersensitivity pneumonitis. Artem Madera MD Last Impressions Chest X-Ray 09/13/16 0600 Signed Impressions: Service Date/Time: Tuesday, September 13, 2016 04:49 - CONCLUSION: 1. Hazy opacity in both lungs without significant change. This may represent pulmonary edema which may be noncardiogenic. 2. Artifact projected over the right suprahilar region limiting visualization. Seth Breen MD Liver Ultrasound 09/12/16 0000 Signed Impressions: Service Date/Time: Monday, September 12, 2016 16:15 - CONCLUSION: 1. 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 2. Pericholecystic fluid and gallbladder wall thickening raising the possibility of cholecystitis. A hepatobiliary scan may be helpful to confirm cystic duct obstruction if clinically indicated. 3. Gallbladder sludge. 4. Ascites. 5. Bilateral pleural effusions. 6. Mild hepatomegaly. 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 This is nonocclusive. A retrievable IVC filter was deployed below the main hepatic veins but it was necessary to cross an accessory right hepatic vein. Jose Armando Jackson Jr., MD Head CT 09/12/16 0000 Signed Impressions: Service Date/Time: Monday, September 12, 2016 09:29 - CONCLUSION: Mild loss of lemos matter definition that can be seen with increasing intracranial pressure. Ricki Cavazos MD FACR Neck Magnetic Resonance Angiography 09/09/16 0000 Signed Impressions: Service Date/Time: August 16:02 - CONCLUSION: 1. Moderate to severe smooth narrowing of the left common carotid artery and also moderate narrowing of the proximal right common carotid artery as well as narrowing of both proximal vertebral arteries likely related to recent hanging. Etiology could be related to vasospasm or recent extrinsic prolonged compression. The distal internal carotid arteries and vertebral artery have more normal calibers. Findings called to Dr. Bhatt at the time of dictation. Gideon Brown MD Cervical Spine MRI 09/09/16 0000 Signed Impressions: Service Date/Time: , September 09, 2016 16:02 - CONCLUSION: 1. Very minimal degenerative disc disease at C5-6. 2. No acute fracture or prevertebral soft tissue swelling. 3. No focal cervical cord abnormality. Tray Santiago MD Brain MRI 09/09/16 0000 Signed Impressions: Service Date/Time: , September 09, 2016 16:02 - CONCLUSION: 1. Diffuse FLAIR-weighted hyperintensities involving the caudate nuclei bilaterally, bilateral hummel radiata, as well as the bilateral parietal and occipital cortex consistent with the patient's clinical diagnosis of anoxic encephalopathy. 2. No acute hemorrhage, midline shift, extra-axial fluid collection or abnormal enhancement. 3. Small fluid level within the right sphenoid sinus. Tray Santiago MD Cervical Spine CT 09/07/16 1800 Signed Impressions: Service Date/Time: Wednesday, September 07, 2016 18:06 - CONCLUSION: 1. No fracture or subluxation. 2. Scattered groundglass nodules throughout the upper lobes, nonspecific but can be seen with hypersensitivity pneumonitis. Artem Madera MD Last Impressions Chest X-Ray 09/13/16 0600 Signed Impressions: Service Date/Time: Tuesday, September 13, 2016 04:49 - CONCLUSION: 1. Hazy opacity in both lungs without significant change. This may represent pulmonary edema which may be noncardiogenic. 2. Artifact projected over the right suprahilar region limiting visualization. Seth Breen MD Liver Ultrasound 09/12/16 0000 Signed Impressions: Service Date/Time: Monday, September 12, 2016 16:15 - CONCLUSION: 1. 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 2. Pericholecystic fluid and gallbladder wall thickening raising the possibility of cholecystitis. A hepatobiliary scan may be helpful to confirm cystic duct obstruction if clinically indicated. 3. Gallbladder sludge. 4. Ascites. 5. Bilateral pleural effusions. 6. Mild hepatomegaly. 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 This is nonocclusive. A retrievable IVC filter was deployed below the main hepatic veins but it was necessary to cross an accessory right hepatic vein. Jose Armando Jackson Jr., MD Head CT 09/12/16 Signed Impressions: Service Date/Time: Monday, September 12, 2016 09:29 - CONCLUSION: Mild loss of lemos matter definition that can be seen with increasing intracranial pressure. Ricki Cavazos MD FACR Neck Magnetic Resonance Angiography 09/09/16 Signed Impressions: Service Date/Time: August 16:02 - CONCLUSION: 1. Moderate to severe smooth narrowing of the left common carotid artery and also moderate narrowing of the proximal right common carotid artery as well as narrowing of both proximal vertebral arteries likely related to recent hanging. Etiology could be related to vasospasm or recent extrinsic prolonged compression. The distal internal carotid arteries and vertebral artery have more normal calibers. Findings called to Dr. Bhatt at the time of dictation. Gideon Brown MD Cervical Spine MRI 09/09/16 Signed Impressions: Service Date/Time: August 16:02 - CONCLUSION: 1. Very minimal degenerative disc disease at C5-6. 2. No acute fracture or prevertebral soft tissue swelling. 3. No focal cervical cord abnormality. Tray Santiago MD Brain MRI 09/09/16 Signed Impressions: Service Date/Time: August 16:02 - CONCLUSION: 1. Diffuse FLAIR-weighted hyperintensities involving the caudate nuclei bilaterally, bilateral hummel radiata, as well as the bilateral parietal and occipital cortex consistent with the patient's clinical diagnosis of anoxic encephalopathy. 2. No acute hemorrhage, midline shift, extra-axial fluid collection or abnormal enhancement. 3. Small fluid level within the right sphenoid sinus. Tray Santiago MD Cervical Spine CT 09/07/16 1800 Signed Impressions: Service Date/Time: Wednesday, September 07, 2016 18:06 - CONCLUSION: 1. No fracture or subluxation. 2. Scattered groundglass nodules throughout the upper lobes, nonspecific but can be seen with hypersensitivity pneumonitis. Artem Madera MD Attending Statement Continue neuro checks. Anoxic encephalopathy. Pulmonary. Continue mechanical ventilation. Continue aggressive pulmonary toilette, nasotracheal suction, and breathing treatments with nebulizers. Nutrition. NPO Renal. monitor closely urine output, BUN and creatinine Endocrine. Monitor serial Acu checks and SSI as needed in detail ID IV antibiotics for staph aereus. Protonix for stress ulcer prophylaxis Carlitos tate and SCD's for DVT prophylaxis Jomar José MD Sep 24, 2016 13:09
--- NOTE | 2016-09-24 19:08 | MB ---
cc: JULES ROSAS DATE OF CONSULTATION 09/24/[address] Barry REASON FOR CONSULTATION Trache management HISTORY OF PRESENT ILLNESS Ms. Negrete is a 20-year-old female who was brought as a trauma alert. The patient hanged herself and EVAC was called. She was found by her roommate. She had CPR done was found to be asystole, but she had a return of circulation. The patient was intubated. She has been managed in the [facility]. She had multiple EEG's done and ICP monitor and she required a trache and PEG tube. Currently, she is on a trache collar. Her eyes are open, but she does not follow any commands. PAST MEDICAL HISTORY Unremarkable MEDICATIONS She is currently takin. Ancef q8h 2. Ibuprofen 600 mg q. 6 hours p.r.n. fever 3. Protonix 40 mg a day 4. Keppra q. 12-hour 5. Propofol 25 mg q. 6-hour 6. Arixtra 7.5 mg q.24 h. 7. Klonopin 1 mg q. 8-hour 8. Oxycodone 5 mg q. 6-hour 9. Dulcolax suppository daily 10. Artificial tears FAMILY HISTORY/SOCIAL HISTORY Not obtainable. REVIEW OF SYSTEMS Not obtainable. PHYSICAL EXAMINATION A thin-built female. She has on trache collar. She has tremors-like movements. VITAL SIGNS: Blood pressure 112/67, heart rate 150, respirations 18, temperature 98.3. HEENT: Pupils do not have to light. NECK: Supple. She has trache in place. CHEST: Equal bilaterally. She has a few rhonchus wheezes. S1 and S2 normal. ABDOMEN: She has a PEG tube in place. EXTREMITIES: No edema. LABORATORY EVALUATION Her WBC count is 12.4, hemoglobin 10.8, hematocrit 32, MCV 81, platelet count 764. Sodium 137, potassium 4.9, chloride 103, CO2 24, BUN 12, creatinine 0.51. Chest x-ray shows perihilar edema versus pneumonia. IMPRESSION 1. Respiratory failure status post trache. 2. Status post PEG tube placement. 3. Anoxic encephalopathy 4. Episode of hanging 5. Bilateral carotid narrowing. PLAN She is on trache collar maintaining good oxygen saturation. We will continue her on a trache tube, with suctioning as needed. Continue tube feeding. She is on antiseizure medication. The patient is being transferred to [address] [place] [address]. Further recommendations will depend upon the course in the hospital. Thank you, Dr. Barry, for this consultation. MD LUKASZ Urrutia/AUTUMN /6:22 PM /6:55 PM MTDMorgan
[2016-09-25] VITALS (8 sets, daily range): BP systolic 105–131; BP diastolic 56–72; PULSE 96–115; RESP 17–29; TEMP 97.7–98.6; O2SAT 91–100
[2016-09-25] MEDS: ceFAZolin 2 GM PREMIX 50 ML IV SCH ×3 (01:05→16:21)
[2016-09-25] MEDS: SODIUM CHLORIDE 1 GRAM TAB PO SCH ×3 (01:05→16:20)
[2016-09-25] MEDS: clonazePAM 1 MG TAB PO SCH ×3 (01:06→16:20)
[2016-09-25] MEDS: PROPRANOLOL HCL 20 MG TAB PO SCH ×4 (01:07→16:20)
[2016-09-25] MEDS: ARTIFICIAL TEARS OPTH SOLN 15 ML BTL EACH EYE SCH ×3 (01:11→21:00)
[2016-09-25] MEDS: CHLORHEXIDINE GLUCONATE 2 % 1 PACK (2 CLOTHS) TOP SCH (04:00)
[2016-09-25] MEDS: FONDAPARINUX SODIUM 7.5 MG/0.6 ML SYRINGE SQ SCH (05:51)
[2016-09-25] MEDS: POTASSIUM CHLORIDE 25 MEQ EFFERVESCENT TAB PO SCH (07:50)
[2016-09-25] MEDS: DOCUSATE SODIUM 100 MG/10 ML UDC PO SCH ×2 (07:50→22:15)
[2016-09-25] MEDS: PANTOPRAZOLE SOD 40 MG DELAYED RELEASE TAB PO SCH (07:50)
[2016-09-25] MEDS: BISACODYL 10 MG SUPP RECTAL SCH (07:50)
[2016-09-25] MEDS: levETIRAcetam 1000 MG INJ 100 ML IV SCH ×2 (07:51→22:15)
--- NOTE | 2016-09-25 11:47 | HHI.PR ---
Subjective Remarks 20 YOWF with Anoxic encephalopathy, cardiac arrest, hanging Has twitching movements No Fever On trach collar had high residual, TF on hold Objective Vital Signs Vital Signs Date Time Temp Pulse Resp B/P Pulse Ox O2 Delivery O2 Flow Rate FiO2 09/25/16 08:00 97.7 96 17 110/56 97 09/25/16 08:00 100 09/25/16 04:00 98.2 108 18 117/68 94 09/25/16 00:00 98.3 115 18 115/66 92 09/24/16 21:04 94 T-piece 5.00 50 09/24/16 20:00 98.3 108 15 102/68 92 09/24/16 18:00 108 09/24/16 16:00 115 09/24/16 16:00 98.3 115 23 112/67 95 09/24/16 14:00 112 09/24/16 12:00 98.6 109 26 106/74 100 09/24/16 12:00 109 I/O 09/24/16 09/24/16 09/24/16 09/25/16 09/25/16 09/25/16 06:59 14:59 22:59 06:59 14:59 22:59 Intake Total 532 ml 634 ml Balance 532 ml 634 ml Intake IV Total 107 ml 220 ml Tube Feeding 225 ml 414 ml Other 200 ml # Voids 5 5 3 # Bowel Movements 2 1 Result Diagram: 09/24/16 0555 09/24/16 0550 Objective Remarks GENERAL: Thin built female, on trach tube SKIN: Warm and dry. HEAD: Normocephalic. EYES: No scleral icterus. No injection or drainage. NECK: Supple, trachea midline. No JVD or lymphadenopathy. Has trach CARDIOVASCULAR: Regular rate and rhythm without murmurs, gallops, or rubs. RESPIRATORY: Breath sounds equal bilaterally. No accessory muscle use. GASTROINTESTINAL: Abdomen soft, non-tender, nondistended. PEG tube MUSCULOSKELETAL: No cyanosis, or edema. BACK: Nontender without obvious deformity. No CVA tenderness. A/P Assessment and Plan Resp Failure S/P trach Anoxic encephalopathy cardiac arrest, hanging S/P PEG PLAN: Trach care Aerosol prn Abcx Ancef Resume TF On Patrick Quinn BF at BS Evgeny Bunn MD Sep 25, 2016 11:46
--- NOTE | 2016-09-25 13:23 | HHI.PR ---
Objective Vitals Vital Signs Date Time Temp Pulse Resp B/P Pulse Ox O2 Delivery O2 Flow Rate FiO2 09/25/16 08:00 97.7 96 17 110/56 97 09/25/16 08:00 100 09/25/16 04:00 98.2 108 18 117/68 94 09/25/16 00:00 98.3 115 18 115/66 92 09/24/16 21:04 94 T-piece 5.00 50 09/24/16 20:00 98.3 108 15 102/68 92 09/24/16 18:00 108 09/24/16 16:00 115 09/24/16 16:00 98.3 115 23 112/67 95 09/24/16 14:00 112 I/O 09/24/16 09/24/16 09/24/16 09/25/16 09/25/16 09/25/16 07:00 15:00 23:00 07:00 15:00 23:00 Intake Total 532 ml 634 ml Balance 532 ml 634 ml Intake IV Total 107 ml 220 ml Tube Feeding 225 ml 414 ml Other 200 ml # Voids 5 5 3 # Bowel Movements 2 1 Result Diagram: 09/24/16 0555 09/24/16 0550 Objective Remarks GENERAL: Patient is nonverbal and noninteractive. Trached. CARDIOVASCULAR: Normal rate and regular rhythm without murmurs, gallops, or rubs. RESPIRATORY: Breath sounds equal and clear to auscultation bilaterally. GASTROINTESTINAL: Abdomen soft, non-tender, non-distended. PEG in place MUSCULOSKELETAL: Extremities with occasional myoclonus on the left lower extremity NEURO: Nonverbal, noninteractive. A/P Assessment and Plan 20-year-old with severe anoxic brain injury after cardiac arrest. Patient found hanged for unknown amount of time. Patient has not made any progress. All specialist recommends comfort measures. However family continues to rule out aggressive care. She is status post tracheostomy on 09/17/16 and PEG placement on 09/20. Narrow spectrum of abx from cefepime to ancef for MSSA recurrent in the sputum. Severe anoxic brain injury Bilateral common carotid narrowing Attempted suicide by hanging Seizure Depression - MRI shows evidence of diffuse anoxic brain injury. MRA neck bilateral common carotid narrowing-vascular surgery consulted, no intervention. started aspirin - CT 09/12-loss salguero/white matter differentiation c/w cerebral edema. ICP monitor placed 09/12 , removed 09/16. - EEG 09/10 bilateral sharp activity, on Dilantin. Level therapeutic 09/12. DC Dilantin 09/18/16 due high fever, started Keppra - EEG 09/11 Encephalopathy, no sz. - EEG 09/13severe encephalopathy. (delta waves) - s/p induced hypothermia. - Neurology Dr. Wong following. He states prognosis is poor and recommended comfort measures. - NSG Dr. José states poor prognosis, recommends comfort care. - Toxicology negative - Ativan for symptomatic control for severe myoclonus. - Oxycodone for pain. Fentanyl prn Shock resolved Status postcardiac arrest - Off Levophed which was used to maintain CPP Acute hypoxemic respiratory failure Pre-hospital Aspiration pneumonitis Acute lung injury - Intubated for hypoxemic respiratory failure from pre hospital aspiration - Patient has evidence of aspiration on admission as indicated by right lower lobe infiltrate - s/p trach 09/17/16. Vijay Jackson and Kunal -Appreciate pulmonology following. Trach care per pulmonology. Transaminitis most likely from shock, resolved. Hyponatremia - Tube feedings Jevity 1.5 at 50 L per hour per nutrition recommendations. - s/p PEG 09/20 - repeat GB u/s without signs of cholecystitis 09/18 - Continue salt tabs 3gm po q8hr. - Liver ultrasound 09/12large nonocclusive thrombus and IVC. Septic, neurogenic shock-resolved Aspiration pneumonia, prehospital High fever Sputum with MSSA 09/08. - sputum culture 09/17 staph aureus. de-escalate to Ancef 2gm iv q8h, total 10 day course of abx for recurrent MSSA pna. Leukopenia, resolved Thrombocytopenia consumptive-resovled Large IVC thrombus - Monitor CBC CMP coags. - IVC filter placed 09/12 due to inability to anticoagulate (thrombocytopenia) and cerebral edema - This was discussed with hematology Dr. Kwok and neurologist surgeon Dr. Davenport - Now platelets improved, Arixtra 7.5 mg daily from 09/18/16. 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 KP negative. DVT GI prophylaxis - IVC filter in place. Continue po ppi.Arixtra started 09/18/16 Poor prognosis for any functional neurological recovery. Palliative care following. Case management for DC planning. Adrian Phillips MD Sep 25, 2016 13:23
--- NOTE | 2016-09-25 14:15 | HHI.PR ---
Subjective Remarks No change in neurological status. Patient is nonverbal, noninteractive. She does have some twitching of her right upper extremity and legs. No purposeful movement. Objective Vitals Vital Signs Date Time Temp Pulse Resp B/P Pulse Ox O2 Delivery O2 Flow Rate FiO2 09/25/16 12:00 98.5 108 29 106/58 95 09/25/16 08:00 97.7 96 17 110/56 97 09/25/16 08:00 100 09/25/16 04:00 98.2 108 18 117/68 94 09/25/16 00:00 98.3 115 18 115/66 92 09/24/16 21:04 94 T-piece 5.00 50 09/24/16 20:00 98.3 108 15 102/68 92 09/24/16 18:00 108 09/24/16 16:00 115 09/24/16 16:00 98.3 115 23 112/67 95 I/O 09/24/16 09/24/16 09/24/16 09/25/16 09/25/16 09/25/16 07:00 15:00 23:00 07:00 15:00 23:00 Intake Total 532 ml 634 ml Balance 532 ml 634 ml Intake IV Total 107 ml 220 ml Tube Feeding 225 ml 414 ml Other 200 ml # Voids 5 5 3 # Bowel Movements 2 1 Result Diagram: 09/24/16 0555 09/24/16 0550 Objective Remarks GENERAL: Patient is nonverbal and noninteractive. Trached. CARDIOVASCULAR: Normal rate and regular rhythm without murmurs, gallops, or rubs. RESPIRATORY: Breath sounds equal and clear to auscultation bilaterally. GASTROINTESTINAL: Abdomen soft, non-tender, non-distended. PEG in place MUSCULOSKELETAL: Extremities with occasional myoclonus on the left lower extremity NEURO: Nonverbal, noninteractive. A/P Assessment and Plan 20-year-old with severe anoxic brain injury after cardiac arrest. Patient found hanged for unknown amount of time. Patient has not made any progress. All specialist recommends comfort measures. However family continues to rule out aggressive care. She is status post tracheostomy on 09/17/16 and PEG placement on 09/20. Narrow spectrum of abx from cefepime to ancef for MSSA recurrent in the sputum. Severe anoxic brain injury Bilateral common carotid narrowing Attempted suicide by hanging Seizure Depression - MRI shows evidence of diffuse anoxic brain injury. MRA neck bilateral common carotid narrowing-vascular surgery consulted, no intervention. started aspirin - CT 09/12-loss salguero/white matter differentiation c/w cerebral edema. ICP monitor placed 09/12 , removed 09/16. - EEG 09/10 bilateral sharp activity, on Dilantin. Level therapeutic 09/12. DC Dilantin 09/18/16 due high fever, started Keppra - EEG 09/11 Encephalopathy, no sz. - EEG 09/13severe encephalopathy. (delta waves) - s/p induced hypothermia. - Neurology Dr. Wong following. He states prognosis is poor and recommended comfort measures. - NSG Dr. José states poor prognosis, recommends comfort care. - Toxicology negative - Ativan for symptomatic control for severe myoclonus. - Oxycodone for pain. Fentanyl prn Shock resolved Status postcardiac arrest - Off Levophed which was used to maintain CPP Acute hypoxemic respiratory failure Pre-hospital Aspiration pneumonitis Acute lung injury - Intubated for hypoxemic respiratory failure from pre hospital aspiration - Patient has evidence of aspiration on admission as indicated by right lower lobe infiltrate - s/p trach 09/17/16. Vijay Jackson and Kunal -Appreciate pulmonology following. Trach care per pulmonology. Transaminitis most likely from shock, resolved. Hyponatremia - Tube feedings Jevity 1.5 at 50 L per hour per nutrition recommendations. - s/p PEG 09/20 - repeat GB u/s without signs of cholecystitis 09/18 - Continue salt tabs 3gm po q8hr. - Liver ultrasound 09/12large nonocclusive thrombus and IVC. Septic, neurogenic shock-resolved Aspiration pneumonia, prehospital High fever Sputum with MSSA 09/08. - sputum culture 09/17 staph aureus. de-escalate to Ancef 2gm iv q8h, total 10 day course of abx for recurrent MSSA pna. Leukopenia, resolved Thrombocytopenia consumptive-resovled Large IVC thrombus - Monitor CBC CMP coags. - IVC filter placed 09/12 due to inability to anticoagulate (thrombocytopenia) and cerebral edema - This was discussed with hematology Dr. Kwok and neurologist surgeon Dr. Davenport - Now platelets improved, Arixtra 7.5 mg daily from 09/18/16. 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 KP negative. DVT GI prophylaxis - IVC filter in place. Continue po ppi.Arixtra started 09/18/16 Poor prognosis for any functional neurological recovery. Palliative care following. Case management for DC planning. Adrian Phillips MD Sep 25, 2016 14:15
[2016-09-26] VITALS (16 sets, daily range): BP systolic 99–121; BP diastolic 55–75; PULSE 100–145; RESP 18–34; TEMP 97.9–102.8; O2SAT 90–100
[2016-09-26] MEDS: ceFAZolin 2 GM PREMIX 50 ML IV SCH ×4 (00:04→23:00)
[2016-09-26] MEDS: PROPRANOLOL HCL 20 MG TAB PO SCH ×5 (00:04→23:00)
[2016-09-26] MEDS: SODIUM CHLORIDE 1 GRAM TAB PO SCH ×4 (00:04→23:00)
[2016-09-26] MEDS: clonazePAM 1 MG TAB PO SCH ×3 (03:03→17:30)
[2016-09-26] MEDS: CHLORHEXIDINE GLUCONATE 2 % 1 PACK (2 CLOTHS) TOP SCH (04:00)
[2016-09-26] MEDS: FONDAPARINUX SODIUM 7.5 MG/0.6 ML SYRINGE SQ SCH (05:42)
[2016-09-26] MEDS: PANTOPRAZOLE SOD 40 MG DELAYED RELEASE TAB PO SCH (09:00)
[2016-09-26] MEDS: ARTIFICIAL TEARS OPTH SOLN 15 ML BTL EACH EYE SCH ×2 (09:00→20:20)
[2016-09-26] MEDS: DOCUSATE SODIUM 100 MG/10 ML UDC PO SCH ×2 (09:00→20:19)
[2016-09-26] MEDS: POTASSIUM CHLORIDE 25 MEQ EFFERVESCENT TAB PO SCH (09:00)
[2016-09-26] MEDS: BISACODYL 10 MG SUPP RECTAL SCH (09:00)
--- NOTE | 2016-09-26 10:12 | HHI.PR ---
Objective Vitals Vital Signs Date Time Temp Pulse Resp B/P Pulse Ox O2 Delivery O2 Flow Rate FiO2 09/26/16 08:27 98.8 106 22 106/55 92 09/26/16 07:58 90 T-piece 6.00 50 09/26/16 03:55 98.1 106 18 99/64 100 09/26/16 00:00 97.9 100 18 120/56 100 09/25/16 22:20 92 T-piece 5.00 40 09/25/16 20:54 98.6 105 18 105/57 100 09/25/16 19:00 103 09/25/16 16:00 98.1 106 26 131/72 91 09/25/16 12:00 98.5 108 29 106/58 95 I/O 09/25/16 09/25/16 09/25/16 09/26/16 09/26/16 09/26/16 07:00 15:00 23:00 07:00 15:00 23:00 # Voids 3 1 1 Result Diagram: 09/24/16 0555 09/24/16 0550 Teagan Robles MD R3 Sep 26, 2016 10:12
--- NOTE | 2016-09-26 10:18 | HHI.PR ---
Subjective Remarks Patient seen and examined bedside after being notified that a highly Was called for acute respiratory distress. The patient desatted acutely and required ventilation with 100% oxygen and an Ambu bag. She remains nonresponsive and nonverbal. Objective Vitals Vital Signs Date Time Temp Pulse Resp B/P Pulse Ox O2 Delivery O2 Flow Rate FiO2 09/26/16 08:27 98.8 106 22 106/55 92 09/26/16 07:58 90 T-piece 6.00 50 09/26/16 03:55 98.1 106 18 99/64 100 09/26/16 00:00 97.9 100 18 120/56 100 09/25/16 22:20 92 T-piece 5.00 40 09/25/16 20:54 98.6 105 18 105/57 100 09/25/16 19:00 103 09/25/16 16:00 98.1 106 26 131/72 91 09/25/16 12:00 98.5 108 29 106/58 95 I/O 09/25/16 09/25/16 09/25/16 09/26/16 09/26/16 09/26/16 07:00 15:00 23:00 07:00 15:00 23:00 # Voids 3 1 1 Result Diagram: 09/24/16 0555 09/24/16 0550 Objective Remarks GENERAL: Patient is nonverbal and noninteractive. Trached. CARDIOVASCULAR: Normal rate and regular rhythm without murmurs, gallops, or rubs. RESPIRATORY: Breath sounds equal with bilateral rhonchi. No wheezing. GASTROINTESTINAL: Abdomen soft, non-tender, non-distended. PEG in place MUSCULOSKELETAL: Extremities with occasional myoclonus on the left lower extremity NEURO: Nonverbal, noninteractive. A/P Assessment and Plan 20-year-old with severe anoxic brain injury after cardiac arrest. Patient found hanged for unknown amount of time. Patient has not made any progress. All specialist recommends comfort measures. However family continues to rule out aggressive care. She is status post tracheostomy on 09/17/16 and PEG placement on 09/20. Narrow spectrum of abx from cefepime to ancef for MSSA recurrent in the sputum. Acute respiratory failure - Patient requiring ventilation with Ambu bag and 100% FiO2 - Acute onset, concern for aspiration pneumonia given physical exam findings - Critical care consulted, patient transferred to the ICU Severe anoxic brain injury Bilateral common carotid narrowing Attempted suicide by hanging Seizure Depression - MRI shows evidence of diffuse anoxic brain injury. MRA neck bilateral common carotid narrowing-vascular surgery consulted, no intervention. started aspirin - CT 09/12-loss salguero/white matter differentiation c/w cerebral edema. ICP monitor placed 09/12 , removed 09/16. - EEG 09/10 bilateral sharp activity, on Dilantin. Level therapeutic 09/12. DC Dilantin 09/18/16 due high fever, started Keppra - EEG 09/11 Encephalopathy, no sz. - EEG 09/13severe encephalopathy. (delta waves) - s/p induced hypothermia. - Neurology Dr. Wong following. He states prognosis is poor and recommended comfort measures. - NSG Dr. José states poor prognosis, recommends comfort care. - Toxicology negative - Ativan for symptomatic control for severe myoclonus. - Oxycodone for pain. Fentanyl prn Shock resolved Status postcardiac arrest - Off Levophed which was used to maintain CPP Acute hypoxemic respiratory failure Pre-hospital Aspiration pneumonitis Acute lung injury - Intubated for hypoxemic respiratory failure from pre hospital aspiration - Patient has evidence of aspiration on admission as indicated by right lower lobe infiltrate - s/p trach 09/17/16. Vijay Jackson and Kunal - Appreciate pulmonology following. Trach care per pulmonology. - Plan as above Transaminitis most likely from shock, resolved. Hyponatremia - Tube feedings Jevity 1.5 at 50 L per hour per nutrition recommendations. - s/p PEG 09/20 - repeat GB u/s without signs of cholecystitis 09/18 - Continue salt tabs 3gm po q8hr. - Liver ultrasound 09/12large nonocclusive thrombus and IVC. Septic, neurogenic shock-resolved Aspiration pneumonia, prehospital High fever Sputum with MSSA 09/08. - sputum culture 09/17 staph aureus. de-escalate to Ancef 2gm iv q8h, total 10 day course of abx for recurrent MSSA pna. - Given acute deterioration, antibiotics will likely need to be broadened Leukopenia, resolved Thrombocytopenia consumptive-resovled Large IVC thrombus - Monitor CBC CMP coags. - IVC filter placed 09/12 due to inability to anticoagulate (thrombocytopenia) and cerebral edema - This was discussed with hematology Dr. Kwok and neurologist surgeon Dr. Davenport - Now platelets improved, Arixtra 7.5 mg daily from 09/18/16. 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 KP negative. DVT GI prophylaxis - IVC filter in place. Continue po ppi. Arixtra started 09/18/16 Poor prognosis for any functional neurological recovery. Palliative care following. Case management for DC planning. Discharge Planning Unclear at this time. Teagan Robles MD R3 Sep 26, 2016 10:18
[2016-09-26 10:46] LABS: BLOOD GAS BASE EXCESS 1.6 mmol/L (-2-2); BLOOD GAS CARBOXYHEMOGLOBIN 0.9 % (0-4); BLOOD GAS HCO3 26 mmol/L (22-26); BLOOD GAS METHEMOGLOBIN 1.1 % (0-2); BLOOD GAS O2 HGB SATURATION 85 % (90-100); BLOOD GAS OXYGEN CONTENT 13.5 Vol % (12.0-20.0); BLOOD GAS PCO2 40 mmHg (38-42); BLOOD GAS PO2 56 mmHg (61-120); BLOOD GAS TOTAL HGB 11.3 G/DL (12.0-16.0); CRITICAL VALUE YES; DRAW SITE LT RADIAL; FIO2 60 %; NUMBER OF ARTERIAL PUNCTURES 1; OXYGEN DEVICE VENTILATOR; STAT YES; TEMP CORR TO 98.6; ULNAR PULSE PRESENT; VENT SETTINGS CPAP/PS5/PEEP5
[2016-09-26] MEDS: levETIRAcetam 1000 MG INJ 100 ML IV SCH ×2 (10:46→20:20)
--- NOTE | 2016-09-26 10:52 | RADRPT ---
EXAM DATE/TIME: 09/26/2016 10:39 [facility] COMPARISON: VENOGRAM IVC W RETRIEVABLE FILTER PLACEMENT, September 12, 2016, 20:00. CHEST SINGLE AP, September 13, 2016, 4 :49. CHEST SINGLE AP, September 17, 2016, 15:35. CHEST SINGLE AP, September 18, 2016, 5:01. INDICATIONS : Hypoxia. MEDICAL HISTORY : None. SURGICAL HISTORY : None. ENCOUNTER: Subsequent ACUITY: 2 weeks PAIN SCORE: Non-responsive. LOCATION: Bilateral chest FINDINGS: A single AP supine view of the chest was obtained and demonstrates a tracheostomy tube in place. Ther e are no confluent infiltrates or effusions. Mild hazy opacity remains in the infrahilar regions. The heart and mediastinal structures remain within normal limits. Overlying electrocard and leads and ox ygen tubing are present. The inferior vena caval filter remains stable in appearance. CONCLUSION: Stable appearance with mild infrahilar opacity again noted. Seth Breen MD on September 26, 2016 at 10:48 Board Certified Radiologist. This report was verified electronically.
--- NOTE | 2016-09-26 13:51 | HHI.PR ---
Subjective Remarks 20 YOWF with Anoxic encephalopathy, cardiac arrest, hanging Has twitching movements No Fever Developed SOB last night Tr back to ISC On Vent Objective Vital Signs Vital Signs Date Time Temp Pulse Resp B/P Pulse Ox O2 Delivery O2 Flow Rate FiO2 09/26/16 13:21 90 09/26/16 12:13 100 100 09/26/16 12:00 116 09/26/16 12:00 100 09/26/16 12:00 99.8 116 29 121/72 100 09/26/16 11:00 100 09/26/16 10:40 97 100 09/26/16 10:20 96 60 09/26/16 10:15 60 09/26/16 10:15 114 09/26/16 08:27 98.8 106 22 106/55 92 09/26/16 07:58 90 T-piece 6.00 50 09/26/16 03:55 98.1 106 18 99/64 100 09/26/16 00:00 97.9 100 18 120/56 100 09/25/16 22:20 92 T-piece 5.00 40 09/25/16 20:54 98.6 105 18 105/57 100 09/25/16 19:00 103 09/25/16 16:00 98.1 106 26 131/72 91 I/O 09/25/16 09/25/16 09/25/16 09/26/16 09/26/16 09/26/16 07:00 15:00 23:00 07:00 15:00 23:00 # Voids 3 1 1 Result Diagram: 09/24/16 0555 09/24/16 0550 Objective Remarks GENERAL: Thin built female, on trach tube SKIN: Warm and dry. HEAD: Normocephalic. EYES: No scleral icterus. No injection or drainage. NECK: Supple, trachea midline. No JVD or lymphadenopathy. Has trach CARDIOVASCULAR: Regular rate and rhythm without murmurs, gallops, or rubs. RESPIRATORY: Breath sounds equal bilaterally. No accessory muscle use. GASTROINTESTINAL: Abdomen soft, non-tender, nondistended. PEG tube MUSCULOSKELETAL: No cyanosis, or edema. BACK: Nontender without obvious deformity. No CVA tenderness. A/P Assessment and Plan Resp Failure S/P trach Anoxic encephalopathy cardiac arrest, hanging S/P PEG PLAN: Vent support, wean 02 Trach care Aerosol prn Abcx Ancef On Evgeny Lowe MD Sep 26, 2016 13:51
--- NOTE | 2016-09-26 14:55 | HHI.CCPN ---
Subjective Remarks/Hospital Course 19 years old was brought in as a trauma alert. He has had to hanged herself and was found by her roommate. Unknown time of hanging. When fire department arrived patient was in asystole. CPR was started and one round of meds were given as per ACLS protocol. There was return of spontaneous circulation soon after that. Patient was brought in getting breaths by BV. She had a blood pressure and half way to arriving to the ER she started having some spontaneous respirations. She continued to be a GCS 3 when she arrived. She is admitted to critical care unit and therapeutic hypothermia protocol is initiated. SUBJ 09/08/16: Patient achieving target temperature but developing severe shock. Levothroid had been increased to 30 mcg/m Mehdi-Synephrine added. Additional fluid boluses ordered currently on bicarbonate infusion additional one amp of bicarbonate given. Chest x-ray shows severe aspiration pneumonitis predominantly right lower lobe infiltrates. Zosyn 4.5 GM IV q8 started, give single dose of vanc 09/09/16: Patient is in the rewarming phase of hypothermia protocol. Once sedation was lightened and taken off the Nimbex, patient started developing tonic-clonic generalized seizure like activity. Bolused with a total of 6 mg Ativan in divided doses and restarted on Versed and propofol infusions. Loaded with Cerebyx 1 g and scheduled at 100 mg every 8 hours. Stat EEG pending. Neurology following 09/10/16: Remains on high dose of vasopressors, MRI brain shows evidence of anoxic brain injury. MRA neck bilateral common carotid narrowing. Start on aspirin get vascular surgery consult. No further seizure-like episodes noted. Pupils are equal bilaterally with slight withdrawal of right lower extremity to central pain. 09/11/16: Currently remains off all sedation in process. No noticeable improvement in neuro status, slight withdrawal x4. Aspirin started for bilateral common carotid narrowing-vascular surgery consult appreciated. Continue Cerebyx EEG sharp activity on eeg. MRI indicates diffuse anoxic brain injury with poor prognosis. EEG bihemispheric slowing and intermittent right central posterior sharp discharges which appear to be epileptiform. Dilantin level is therapeutic 09/12/16: Overnight had episodes myoclonus versus seizures. Neuro exam remains poor. No significant improvement. Low grade fever. Remains tachypneic on the ventilator. Restart propofol for vent synchrony 09/13/16: Neuro exam remains unchanged overnight. ICP monitor placed 09/12 for cerebral edema- ICP controlled with hyperosmolar therapy. 2 episodes of seizures vs myoclonus reported. Repeat EEG today. IVC filter placed 09/12/16 evening for large IVC thrombus. Unable to anticoagulate due to thrombocytopenia , cerebral edema-high risk of bleeding 09/14 EEG yesterday showed severe encephalopathy. ICP mainly 10-13 but intermittently spiked up to max of 22, improved with propofol bolus. Myoclonus noted with any tactile stimulation. 09/15 Comatose with myoclonus. ICP intermittently increased to 20, sometimes drifts down without intervention, sometimes improves with sedation. Extensor posturing. 09/16 Off continuous sedation. Comatose with myoclonus. Corneal reflex present on left, absent on right. ICP monitor removed today per NSG. 09/17: no significant neurologic improvement. off sedation. only intermittent ativan for myoclonus which improves symptoms. family meeting today, and family requests aggressive care, including trach/peg. 09/18: No change in neuro exam. Continued to spike high temperatures up to 102.5. CBC pending. I will discontinue Cerebyx start Keppra, check gallbladder ultrasound again and placed on empiric cefepime and single dose of vancomycin. Sputum culture Gram stain shows few GPC. On cooling blanket, and Tylenol. Motrin added. s/p Trach yesterday 09/19: no improvements or changes. sodium trending down. repeat sputum culture 09/17 growing staph aureus. KP pending. 09/20: No change in neuro exam. Overnight spike fever 103 again. Patient has bloody secretion from bilateral nares-she may have some acute sinusitis. Continue broad-spectrum antibiotics. Discontinue NG tube as the patient is getting PEG today Subjective: 09/21: PEG yesterday. no changes. sputum again growing MSSA. 09/22: Colonization, no pneumonia. 09/23: No change in neuro status. 09/26: Halicat from floor after mucus plug. Back on vent. Sats marginal. Objective Vital Signs Date Time Temp Pulse Resp B/P Pulse Ox O2 Delivery O2 Flow Rate FiO2 09/26/16 14:00 134 09/26/16 13:21 90 09/26/16 12:13 100 09/26/16 12:00 99.8 29 121/72 09/26/16 07:58 T-piece 6.00 Result Diagram: 09/24/16 0555 09/24/16 0550 Other Results Laboratory Tests Test 09/26/16 10:20 Blood Gas Puncture Site LT RADIAL Blood Gas Patient Temperature 98.6 Blood Gas HCO3 26 mmol/L (22-26) Blood Gas Base Excess 1.6 mmol/L (-2-2) Blood Gas Oxygen Saturation 85 % (90-100) Arterial Blood pH 7.42 (7.380-7.420) Arterial Blood Partial 40 mmHg (38-42) Pressure CO2 Arterial Blood Partial 56 mmHg Pressure O2 (61-120) Arterial Blood Oxygen Content 13.5 Vol % (12.0-20.0) Arterial Blood 0.9 % (0-4) Carboxyhemoglobin Arterial Blood Methemoglobin 1.1 % (0-2) Blood Gas Hemoglobin 11.3 G/DL (12.0-16.0) Oxygen Delivery Device VENTILATOR Blood Gas Ventilator Setting CPAP/PS5/PEEP5 Blood Gas Inspired Oxygen 60 % Imaging Last [address] 09/07/16 1800 Signed Impressions: Service Date/Time: Wednesday, September 07, 2016 18:06 - CONCLUSION: Normal examination. Artem Madera MD Chest X-Ray 09/07/16 1800 Signed Impressions: Service Date/Time: Wednesday, September 07, 2016 17:49 - CONCLUSION: Subtle densities in the upper lobes. Otherwise unremarkable chest. Artem Madera MD ADDENDUM: See above. Artem Madera MD Cervical Spine CT 09/07/16 1800 Signed Impressions: Service Date/Time: Wednesday, September 07, 2016 18:06 - CONCLUSION: 1. No fracture or subluxation. 2. Scattered groundglass nodules throughout the upper lobes, nonspecific but can be seen with hypersensitivity pneumonitis. Artem Madera MD Objective Remarks GENERAL: young female, lying in bed. trach widely patent. Comatose SKIN: Warm and dry. HEAD: Normocephalic. Pupils are 4 mm. EYES: No scleral icterus. No injection or drainage. NECK: trachea midline. trach site clean, dry. CARDIOVASCULAR: Tachycardic rhythm 130s. No murmurs. No JVD. RESPIRATORY: unlabored. equal chest rise. clear, no wheezes or crackles. GASTROINTESTINAL: Abdomen soft, non-tender, distended. Quiet. MUSCULOSKELETAL: No cyanosis, 1+ edema. NEURO: Now off sedation. Pupils are 4 mm. No cough or gag. Disconjugate gaze. General myoclonic movements on stimulation. To deep central and peripheral noxious stimuli patient showing extensor posturing. A/P Assessment and Plan Assessment: 20yF s/p hanging event and s/p cardiac arrest with severe anoxic injury. family continues to want aggressive care. Status post tracheostomy , PEG 09/20. will work towards weaning to trach collar as tolerated. A/P NEURO: Severe anoxic brain injury Bilateral common carotid narrowing Attempted suicide by hanging Seizure Depression - MRI shows evidence of diffuse anoxic brain injury. MRA neck bilateral common carotid narrowing-vascular surgery consulted, no intervention. started aspirin - CT 09/12-loss salguero/white matter differentiation c/w cerebral edema. ICP monitor placed 09/12 , removed 09/16. - EEG 09/10 bilateral sharp activity, on Dilantin. Level therapeutic 09/12. DC Dilantin 09/18/16 due high fever, started Keppra - EEG 09/11 Encephalopathy, no sz. - EEG 09/13severe encephalopathy. (delta waves) - s/p induced hypothermia. - Neurology Dr. Wong following. He states prognosis is poor and recommended comfort measures. - NSG Dr. José states poor prognosis, recommends comfort care. - Toxicology negative - Ativan for symptomatic control for severe myoclonus. - Oxycodone for pain. Fentanyl prn CV: Shock resolved Status postcardiac arrest - Off Levophed which was used to maintain CPP Resp: Acute hypoxemic respiratory failure Pre-hospital Aspiration pneumonitis Acute lung injury - Intubated for hypoxemic respiratory failure from pre hospital aspiration - PRVC, ventilator bundle. DuoNeb every 6 hours and when necessary - Daily SBTs - Patient has evidence of aspiration on admission as indicated by right lower lobe infiltrate - s/p trach 09/17/16. Vijay Jackson and Kunal - daily trach collar trials. will attempt to wean fio2 < 28% in order to facilitate placement. GI: Transaminitis most likely from shock, resolved. Hyponatremia - Tube feedings Jevity 1.5 at 50 L per hour per nutrition recommendations. - s/p PEG 09/20 - repeat GB u/s without signs of cholecystitis 09/18 - Continue salt tabs 3gm po q8hr. - Had bowel and after mag citrate was given. - Liver ultrasound 09/12large nonocclusive thrombus and IVC. Renal: Acute kidney injury- resolved. Fluid overload- persistent. - monitor BUN/creatinine - anton removed and voiding on own. ID: Septic, neurogenic shock-resolved Aspiration pneumonia, prehospital High fever Sputum with MSSA 09/08. - Zosyn 4.5 g IV every 6 hours 09/08-09/15 .fever may be secondary to DVT. Off vancomycin. - Fever up to 103 GPC on sputum MSSA. Vancomycin 1 g IV 1. - sputum culture 09/17 staph aureus. de-escalate to Ancef 2gm iv q8h, total 10 day course of abx for recurrent MSSA pna. Endo: - Electrolyte replacement per protocol - Sliding-scale insulin if needed HEME: Leukopenia, resolved Thrombocytopenia consumptive-resovled Large IVC thrombus - Monitor CBC CMP coags. - IVC filter placed 09/12 due to inability to anticoagulate (thrombocytopenia) and cerebral edema. - Now platelets improved, Arixtra 7.5 mg daily from 09/18/16. 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 KP pending. given how difficult lab draws are for patient, would prefer Lovenox as opposed to coumadin, so will leave on Arixtra until KP comes back. may be forced to coumadinize. DVT GI prophylaxis - IVC filter in place. Continue po ppi.Arixtra started 09/18/16 Lines: - PIV Findings of status myoclonus, persistent coma with extensor posturing vs absent motor response are consistent with poor prognosis for functional neurologic recovery. MRI demonstrates evidence of anoxic injury. Discussed with family poor prognosis and would expect her to require trach/PEG and be dependent for ADL in nursing facility. 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 She states that she "already had suffered plenty from her depression and psychological demons". However, after full and detailed conversation with Dr. Bragg and the palliative care team, they now want to pursue tracheostomy/PEG tube placement, and give her at least a few more weeks to attempt to improve. Congruent with family wishes, trach placed on 09/17/16. PEG 8/7. CM to look for placement. No change in neuro status. Returned to ICU today for episode of hypoxemia and mucus plug. CXR clear. Gary Syed MD Sep 26, 2016 14:55
[2016-09-26] MEDS: ACETAMINOPHEN 325 MG TAB PO PRN (15:20)
[2016-09-26] MEDS: LORazepam 2 MG/ML VIAL IV PRN ×2 (19:36→22:04)
[2016-09-27] VITALS (20 sets, daily range): BP systolic 94–126; BP diastolic 51–68; PULSE 97–111; RESP 17–22; TEMP 98.1–99.7; O2SAT 97–100
[2016-09-27] MEDS: clonazePAM 1 MG TAB PO SCH (02:06)
[2016-09-27] MEDS: CHLORHEXIDINE GLUCONATE 2 % 1 PACK (2 CLOTHS) TOP SCH (04:00)
[2016-09-27 06:02] LABS: HEMATOCRIT 30.2 % (35.0-46.0); MEAN CORPUSCULAR HEMOGLOBIN 26.4 PG (27.0-34.0); MEAN CORPUSCULAR HGB CONC 32.6 % (32.0-36.0); PLATELET COUNT 586 TH/MM3 (150-450); RED BLOOD COUNT 3.73 MIL/MM3 (4.00-5.30); RED CELL DISTRIBUTION WIDTH 14.7 % (11.6-17.2); REVIEW FLAG FINAL; WHITE BLOOD COUNT 13.6 TH/MM3 (4.0-11.0)
[2016-09-27] MEDS: PROPRANOLOL HCL 20 MG TAB PO SCH (06:06)
[2016-09-27] MEDS: FONDAPARINUX SODIUM 7.5 MG/0.6 ML SYRINGE SQ SCH (06:07)
[2016-09-27 06:19] LABS: BICARBONATE 27.2 MEQ/L (21.0-32.0); POTASSIUM 3.7 MEQ/L (3.5-5.1)
[2016-09-27] MEDS: SODIUM CHLORIDE 1 GRAM TAB PO SCH (07:55)
[2016-09-27] MEDS: DOCUSATE SODIUM 100 MG/10 ML UDC PO SCH (07:56)
[2016-09-27] MEDS: ARTIFICIAL TEARS OPTH SOLN 15 ML BTL EACH EYE SCH ×2 (07:56→22:08)
[2016-09-27] MEDS: levETIRAcetam 1000 MG INJ 100 ML IV SCH (07:56)
[2016-09-27] MEDS: PANTOPRAZOLE SOD 40 MG DELAYED RELEASE TAB PO SCH (07:56)
[2016-09-27] MEDS: POTASSIUM CHLORIDE 25 MEQ EFFERVESCENT TAB PO SCH (07:56)
[2016-09-27] MEDS: BISACODYL 10 MG SUPP RECTAL SCH (07:57)
--- NOTE | 2016-09-27 08:33 | HHI.PR ---
Neuropsych Emotional Emotional: UnabletoAssess: Emotional, Anxious/Fearful, Depressed/Sad, Hostile/ Resentful, Irritable/Angry/Frustrate, Labile, Constricted/Blunted Behavior Behavior: Unable to Asses: Behavior, Coping/Acceptance, Cooperative w/ Treatment, Motivation, Frustration Tolerance/[place], Impulsive/Agitated, Suicidal/ Homicidal Risk Cognitive Cognitive: Unable to Asses: Cognitive, Attention/Concentration, Confused/ Orientation, Insight/Awareness, Judgement/Problem-Solving, Memory Psychosocial Psychosocial: Severe: Psychosocial, Family/Other Adjustment, Realistic Expectation, Unable to Asses: Self-Esteem/Confidence Progress Notes/Response to Tx Contents of Sessions: Adjustment, Level of Consciousness Time with Patient: 15 minutes Premorbid psychological status Premorbid Cognitive, Emotional and Behavioral Status: Tenuous. The patient graduated high school and was planning to attend college, no work history, and noted long psychiatric history. Substance abuse history is unknown. Behavioral Reactions of Patient and Family/Support System: Unstable. The patients family is experiencing ongoing issues of adjustment given the nature of the injury, and this aspect of recovery will require ongoing monitoring. Specifically, the family's realistic expectations concerning recovery was inconsistent with the realities of the medical situation. Emotional/Behavioral Status of Patient and Family/Support System: Tenuous. Pertinent issues, if appropriate to this patients clinical care, are described in detail above. Maximizing acute care outcome Comfort care is recommended as this patient has no chance for a meaningful recovery from a neurocognitive and neurobehavioral standpoint. Anticipated Problems Specific issues are related to family adjustment and realistic expectations, which I am activity involved. Treatment Plan To provide further care in concert with the critical care team, provide specific information on an ongoing basis about the limitations of recovery given the severity of her neurological illness and to provide psychosocial support. [facility] Level: I:No response-total assistance Impression This patient suffered a severe anoxic brain injury and has demonstrated no neurobehavioral improvement. It is my clinical opinion that this patient has no chance for a meaningful recovery from this injury. 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 This is day 20 post injury. The patient was transferred to the floor, but halicatted back due to mucus plug causing desaturation. She remains ventilator dependent with no improvement. Neurobehaviorally, this patient is nonverbal, and non interactive. The patient unfortunately continue to have a grim prognosis and there is no change for any meaningful recovery given the severity of her neurological injury. She is a [place]. I will continue to follow to provide family support. Jose Rafael Manuel PhD Sep 27, 2016 8:33 am
[2016-09-27] MEDS ORDERED: ACETAMINOPHEN 650 MG/20.3 ML UDC G-TUBE PRN (09:45)
--- NOTE | 2016-09-27 10:03 | HHI.CCPN ---
Subjective Remarks/Hospital Course 19 years old was brought in as a trauma alert. He has had to hanged herself and was found by her roommate. Unknown time of hanging. When fire department arrived patient was in asystole. CPR was started and one round of meds were given as per ACLS protocol. There was return of spontaneous circulation soon after that. Patient was brought in getting breaths by BV. She had a blood pressure and half way to arriving to the ER she started having some spontaneous respirations. She continued to be a GCS 3 when she arrived. She is admitted to critical care unit and therapeutic hypothermia protocol is initiated. SUBJ 09/08/16: Patient achieving target temperature but developing severe shock. Levothroid had been increased to 30 mcg/m Mehdi-Synephrine added. Additional fluid boluses ordered currently on bicarbonate infusion additional one amp of bicarbonate given. Chest x-ray shows severe aspiration pneumonitis predominantly right lower lobe infiltrates. Zosyn 4.5 GM IV q8 started, give single dose of vanc 09/09/16: Patient is in the rewarming phase of hypothermia protocol. Once sedation was lightened and taken off the Nimbex, patient started developing tonic-clonic generalized seizure like activity. Bolused with a total of 6 mg Ativan in divided doses and restarted on Versed and propofol infusions. Loaded with Cerebyx 1 g and scheduled at 100 mg every 8 hours. Stat EEG pending. Neurology following 09/10/16: Remains on high dose of vasopressors, MRI brain shows evidence of anoxic brain injury. MRA neck bilateral common carotid narrowing. Start on aspirin get vascular surgery consult. No further seizure-like episodes noted. Pupils are equal bilaterally with slight withdrawal of right lower extremity to central pain. 09/11/16: Currently remains off all sedation in process. No noticeable improvement in neuro status, slight withdrawal x4. Aspirin started for bilateral common carotid narrowing-vascular surgery consult appreciated. Continue Cerebyx EEG sharp activity on eeg. MRI indicates diffuse anoxic brain injury with poor prognosis. EEG bihemispheric slowing and intermittent right central posterior sharp discharges which appear to be epileptiform. Dilantin level is therapeutic 09/12/16: Overnight had episodes myoclonus versus seizures. Neuro exam remains poor. No significant improvement. Low grade fever. Remains tachypneic on the ventilator. Restart propofol for vent synchrony 09/13/16: Neuro exam remains unchanged overnight. ICP monitor placed 09/12 for cerebral edema- ICP controlled with hyperosmolar therapy. 2 episodes of seizures vs myoclonus reported. Repeat EEG today. IVC filter placed 09/12/16 evening for large IVC thrombus. Unable to anticoagulate due to thrombocytopenia , cerebral edema-high risk of bleeding 09/14 EEG yesterday showed severe encephalopathy. ICP mainly 10-13 but intermittently spiked up to max of 22, improved with propofol bolus. Myoclonus noted with any tactile stimulation. 09/15 Comatose with myoclonus. ICP intermittently increased to 20, sometimes drifts down without intervention, sometimes improves with sedation. Extensor posturing. 09/16 Off continuous sedation. Comatose with myoclonus. Corneal reflex present on left, absent on right. ICP monitor removed today per NSG. 09/17: no significant neurologic improvement. off sedation. only intermittent ativan for myoclonus which improves symptoms. family meeting today, and family requests aggressive care, including trach/peg. 09/18: No change in neuro exam. Continued to spike high temperatures up to 102.5. CBC pending. I will discontinue Cerebyx start Keppra, check gallbladder ultrasound again and placed on empiric cefepime and single dose of vancomycin. Sputum culture Gram stain shows few GPC. On cooling blanket, and Tylenol. Motrin added. s/p Trach yesterday 09/19: no improvements or changes. sodium trending down. repeat sputum culture 09/17 growing staph aureus. KP pending. 09/20: No change in neuro exam. Overnight spike fever 103 again. Patient has bloody secretion from bilateral nares-she may have some acute sinusitis. Continue broad-spectrum antibiotics. Discontinue NG tube as the patient is getting PEG today 09/21: PEG yesterday. no changes. sputum again growing MSSA. 09/22: Colonization, no pneumonia. 09/23: No change in neuro status. 09/26: Halicat from floor after mucus plug. Back on vent. Sats marginal. Subjective: 09/27: Remains on PRVC +8 ventilation. Resting in bed in no acute distress. Continues with generalized myoclonus. Withdraws right upper extremity only for me. RN stated left upper extremity. Gaze to right. Objective Vital Signs Date Time Temp Pulse Resp B/P Pulse Ox O2 Delivery O2 Flow Rate FiO2 09/27/16 08:29 99 50 09/27/16 08:00 104 09/27/16 04:00 99.7 22 111/59 09/26/16 07:58 T-piece 6.00 Intake and Output 09/26/16 09/26/16 09/27/16 08:00 16:00 00:00 Intake Total 119 ml 441 ml Balance 119 ml 441 ml Result Diagram: 09/27/16 0530 09/27/16 0530 Imaging Last Impressions Chest X-Ray 09/26/16 0000 Signed Impressions: Service Date/Time: Monday, September 26, 2016 10:39 - CONCLUSION: Stable appearance with mild infrahilar opacity again noted. Seth Breen MD Liver Ultrasound 09/18/16 0000 Signed Impressions: Service Date/Time: Sunday, September 18, 2016 09:27 - CONCLUSION: 1. There is sludge within the gallbladder. No other findings are present to indicate acute cholecystitis. 2. Mild splenomegaly. 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 This is nonocclusive. A retrievable IVC filter was deployed below the main hepatic veins but it was necessary to cross an accessory right hepatic vein. Jose Armando Jackson Jr., MD Head CT 09/12/16 0000 Signed Impressions: Service Date/Time: Monday, September 12, 2016 09:29 - CONCLUSION: Mild loss of lemos matter definition that can be seen with increasing intracranial pressure. Ricki Cavazos MD FACR Neck Magnetic Resonance Angiography 09/09/16 0000 Signed Impressions: Service Date/Time: August 16:02 - CONCLUSION: 1. Moderate to severe smooth narrowing of the left common carotid artery and also moderate narrowing of the proximal right common carotid artery as well as narrowing of both proximal vertebral arteries likely related to recent hanging. Etiology could be related to vasospasm or recent extrinsic prolonged compression. The distal internal carotid arteries and vertebral artery have more normal calibers. Findings called to Dr. Bhatt at the time of dictation. Gideon Brown MD Cervical Spine MRI 09/09/16 0000 Signed Impressions: Service Date/Time: August 16:02 - CONCLUSION: 1. Very minimal degenerative disc disease at C5-6. 2. No acute fracture or prevertebral soft tissue swelling. 3. No focal cervical cord abnormality. Tray Santiago MD Brain MRI 09/09/16 0000 Signed Impressions: Service Date/Time: August 16:02 - CONCLUSION: 1. Diffuse FLAIR-weighted hyperintensities involving the caudate nuclei bilaterally, bilateral hummel radiata, as well as the bilateral parietal and occipital cortex consistent with the patient's clinical diagnosis of anoxic encephalopathy. 2. No acute hemorrhage, midline shift, extra-axial fluid collection or abnormal enhancement. 3. Small fluid level within the right sphenoid sinus. Tray Santiago MD Cervical Spine CT 09/07/16 1800 Signed Impressions: Service Date/Time: Wednesday, September 07, 2016 18:06 - CONCLUSION: 1. No fracture or subluxation. 2. Scattered groundglass nodules throughout the upper lobes, nonspecific but can be seen with hypersensitivity pneumonitis. Artem Madera MD Objective Remarks GENERAL: 20-year-old female, resting in bed SKIN: Warm and dry. HEAD: Normocephalic. Pupils are 4 mm bilaterally. Right gaze.. EYES: No scleral icterus. No injection or drainage. NECK: trachea midline. trach site clean, dry. CARDIOVASCULAR: The cardiac, RRR. S1, S2 no S4. Without murmur. RESPIRATORY: unlabored. equal chest rise. clear, no wheezes or crackles. GASTROINTESTINAL: Abdomen soft, non-tender, distended. G-tube is clean dry and intact MUSCULOSKELETAL: Trace to 1+ generalized upper and lower extremity NEURO: Now off sedation. Pupils are 4 mm. No cough or gag. Disconjugate right gaze. General myoclonic movements on stimulation. To deep central and peripheral noxious stimuli patient showing extensor posturing. Withdraws right upper extremity. A/P Assessment and Plan NEURO/PSYCH: Severe anoxic brain injury Left and right common carotid narrowing Attempted suicide by hanging Seizure Depression - MRI shows evidence of diffuse anoxic brain injury including weighted hyperintensity bilateral caudate, bilateral CR, bilateral occipital and parietal lobes.. MRA neck bilateral common carotid narrowing-vascular surgery consulted, no intervention. started aspirin 09/10 - CT 09/12-loss salguero/white matter differentiation c/w cerebral edema. ICP monitor placed 09/12 , removed 09/16. - EEG 09/10 bilateral sharp activity, on Dilantin. Level therapeutic 09/12. DC Dilantin 09/18/16 due high fever, started Keppra - EEG 09/11 Encephalopathy, no sz. - EEG 09/13severe encephalopathy. (delta waves) - s/p induced hypothermia. - Neurology Dr. Wong following. He states prognosis is poor and recommended comfort measures. - NSG Dr. José states poor prognosis, recommends comfort care. - Toxicology negative - Clonazepam 1 mg by PEG every 8 hours scheduled for clonus - Ativan 1 mg IV every hours for symptomatic control for severe myoclonus. - Oxycodone 5mg every 6 hours scheduled for pain. Fentanyl prn CV: Status postcardiac arrest Hemodynamic stable - Currently not requiring vasopressors and/or anti-hypertensives. Resp: Vent dependent hypoxemic respiratory failure Pre-hospital Aspiration pneumonitis Mucous plugging - PRVC, /02/21/49 ventilator bundle. Albuterol/Atrovent aerosols every 6 hours and albuterol aerosols when necessary At hypertonic saline for mucolytic 5 days - Daily SBTs as clinically indicated s/p trach 09/17/16. Vijay Jackson and Kunal GI/FEN: Transaminitis most likely from shock, resolved. Hyponatremia - Tube feedings Jevity 1.5 at 50 L per hour per nutrition recommendations. Currently at 30 cc an hour - s/p PEG 09/20 - repeat GB u/s without signs of cholecystitis 09/18 - Continue salt tabs 3gm po q8hr. - Liver ultrasound 09/12large nonocclusive thrombus and IVC. Renal/: Fluid overload- persistent. -Monitor BUN/creatinine daily. - In accurate I's nose due to lack Benjamin. ID: Pyrexia Sputum with MSSA 09/08. - Zosyn 4.5 g IV every 6 hours 09/08-09/15 .fever may be secondary to DVT. Off vancomycin. - Fever up to 103 GPC on sputum MSSA. Vancomycin 1 g IV 1. - sputum culture 09/17 staph aureus. de-escalate to Ancef 2gm iv q8h, total 10 day course of abx for recurrent MSSA pna. Recheck sputum culture today 09/27 As needed acetaminophen Endo: - Sliding-scale insulin if needed HEME: Leukocytosis Thrombocytosis Normocytic anemia Large IVC thrombus - Monitor CBC CMP coags. - IVC filter placed 09/12 due to inability to anticoagulate (thrombocytopenia) and cerebral edema. - Now platelets improved, on fondaparinux 7.5 mg daily from 09/18/16. 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 KP negative. DVT GI prophylaxis - IVC filter in place. Continue lansoprazole.fondaparinux 7.5 mg daily started 09/18/16 Lines: - PIV Level III follow-up Reynaldo Johnson MD Sep 27, 2016 10:03 Reynaldo Johnson MD Sep 27, 2016 10:03
--- NOTE | 2016-09-27 10:12 | EKG ---
Date Performed: 09/26/2016 Time Performed: 10:23:52 PTAGE: 20 years EKG: SINUS TACHYCARDIA INDETERMINATE AXIS LEFT POSTERIOR FASCICULAR BLOCK TACHYCARDIA POSSIBLY N ORMAL FOR AGE Clinical correlation is recommended PREVIOUS TRACING : 09/07/2016 22.56 DOCTOR: Atul Leos Interpretating Date/Time 09/27/2016 10:11:30
[2016-09-27] MEDS: PROPRANOLOL HCL 20 MG TAB G-TUBE SCH ×3 (11:28→23:09)
[2016-09-27] MEDS: clonazePAM 1 MG TAB G-TUBE SCH ×2 (11:28→16:51)
[2016-09-27] MEDS: SODIUM CHLORIDE 1 GRAM TAB G-TUBE SCH ×2 (14:33→23:10)
[2016-09-27] MEDS: METOCLOPRAMIDE HCL 10 MG/2 ML VIAL IV PUSH SCH ×2 (14:33→20:33)
--- NOTE | 2016-09-27 15:47 | HHI.HCPN ---
Attempted to see family to provide additional ongoing support. No family at bedside. Nurse reports family left to go to lunch. No change in condition. Palliative care contact information left. Will continue to follow and address goals of care. Pauline Jackson, WINDLACE MACHINE OPERATOR Sep 27, 2016 15:47
--- NOTE | 2016-09-27 16:57 | HHI.NSPN ---
Note Status Status: Progress Note Interval History Diagnosis anoxic encephalopathy Interval History The patient has a 20-year-old female brought in as a Trauma Alert. She was found hanging from a pull-up bar. She was in asystole at the scene, treated with epinephrine and regained a pressure after that. Initially she was unresponsive. GCS was 3. The patient has been unresponsive. There has been no seizure activity at present. 09/13. No clinical improvement. Comatose. Myoclonic jerks 09/14 has not shown any clinical improvement 09/15. Remains intubated and comatose without improvement 09/17. no significant neurologic improvement. off sedation. only intermittent ativan for myoclonus 09/18. No change in neuro exam. Continued to spike high temperatures up to 102.5. Will discontinue Cerebyx start Keppra. Obtain gallbladder ultrasound. Start empiric cefepime and vancomycin. S/p Trach yesterday 09/19. No neuro changes. no improvements or changes. sodium trending down. repeat sputum culture 09/17 growing staph aureus 09/20. Overnight fevers to 103 again. No neurological improvement. She has bloody secretion from bilateral nares, suspected acute sinusitis. Continue broad- spectrum antibiotics. She is getting a PEG today 09/21. Status post PEG yesterday. no changes. sputum again growing MSSA. 09/22 Ventilated. No changes. PEG functional 09/23. No clinical improvement. Discharge planning in progress 09/24. Remains ventilator dependent without improvement 09/27 [address] after mucus plug yesterday. Back on vent.on PRVC +8 ventilation. Continues with generalized myoclonus. Labs, Micro, & Vital Signs Results Date Time Temp Pulse Resp B/P Pulse Ox O2 Delivery O2 Flow Rate FiO2 09/27/16 16:00 98.1 103 17 94/51 99 09/27/16 16:00 50 09/27/16 16:00 104 09/27/16 14:00 98 09/27/16 13:11 100 50 09/27/16 12:00 104 09/27/16 12:00 98.1 103 17 94/51 99 09/27/16 12:00 50 09/27/16 10:00 102 09/27/16 08:29 99 50 09/27/16 08:00 50 09/27/16 08:00 104 09/27/16 08:00 98.1 103 17 94/51 99 09/27/16 06:00 111 09/27/16 05:10 97 50 09/27/16 04:00 109 09/27/16 04:00 45 09/27/16 04:00 99.7 109 22 111/59 98 09/27/16 03:40 97 45 09/27/16 02:00 103 09/27/16 00:32 100 50 09/27/16 00:00 98.7 104 22 116/65 100 09/27/16 00:00 104 09/27/16 00:00 70 09/26/16 22:00 107 09/26/16 20:55 100 60 09/26/16 20:00 105 09/26/16 20:00 70 09/26/16 20:00 99.6 105 19 100/58 100 09/26/16 18:30 80 09/26/16 18:00 110 09/27/16 06:59 Intake Total 926 ml Balance 926 ml Constitutional Vital Signs Date Time Temp Pulse Resp B/P Pulse Ox O2 Delivery O2 Flow Rate FiO2 09/27/16 16:00 98.1 103 17 94/51 99 09/27/16 16:00 50 09/27/16 16:00 104 09/27/16 14:00 98 09/27/16 13:11 100 50 09/27/16 12:00 104 09/27/16 12:00 98.1 103 17 94/51 99 09/27/16 12:00 50 09/27/16 10:00 102 09/27/16 08:29 99 50 09/27/16 08:00 50 09/27/16 08:00 104 09/27/16 08:00 98.1 103 17 94/51 99 09/27/16 06:00 111 09/27/16 05:10 97 50 09/27/16 04:00 109 09/27/16 04:00 45 09/27/16 04:00 99.7 109 22 111/59 98 09/27/16 03:40 97 45 09/27/16 02:00 103 09/27/16 00:32 100 50 09/27/16 00:00 98.7 104 22 116/65 100 09/27/16 00:00 104 09/27/16 00:00 70 09/26/16 22:00 107 09/26/16 20:55 100 60 09/26/16 20:00 105 09/26/16 20:00 70 09/26/16 20:00 99.6 105 19 100/58 100 09/26/16 18:30 80 09/26/16 18:00 110 09/27/16 06:59 Intake Total 926 ml Balance 926 ml Review of Systems/Exam Exam She is intubated and sedated. No response to pain. General myoclonic movements on stimulation, off sedation Cranial Nerves: Pupils 2mm, non-reactive to light. Pupils are 4 mm reactive to 3 mm bilaterally. Slight corneal reflex present on the left, absent on the right. No cough or gag. Disconjugate gaze. No spontaneous eye opening. Face musculature appeared symmetrical at rest. Face sensation, olfaction, visual phillips, and hearing cannot be adequately assessed due to his neurological condition. The patient has a corneal reflex. SHe has no gag reflex. The sternocleidomastoid and trapezius are symmetrical. Cervical Spine: Her neck is soft, supple, without nuchal rigidity. Motor: Minimal withdraw response to pain Reflexes: Deep tendon reflexes are trace in the biceps, triceps, and brachioradialis, bilaterally, in the upper extremities. In the lower extremities, the patellar and ankles TRACE. There is a bilateral silent response to plantar stim. There is no clonus Sensory: On examination there is Minimal withdraw to painful stimuli Cerebellar: Examination cannot be adequately assessed due to the patient's neurological condition. Medications Current Medications Current Medications Etomidate 40 mg 40 mg STK-MED ONCE .ROUTE ; Start 09/07/16 at 17:53; Stop at 17:54; Status DC Propofol (Diprivan 1000 Mg/100ml Inj) 100 ml @ As Directed STK-MED ONCE .ROUTE ; Start 09/07/16 at 18:14; Stop 09/07/16 at 18:15; Status DC Succinylcholine Chloride 200 mg 200 mg STK-MED ONCE .ROUTE ; Start 09/07/16 at 18:38; Stop 09/07/16 at 18:39; Status DC Sodium Chloride (NS 1000 ml Inj) 1,000 ml @ 100 mls/hr Q10H IV Last administered on 09/07/16 19:30; Start 09/07/16 at 19:30; Stop 09/08/16 at 03:31 ; Status DC Sodium Chloride (NS Flush) 2 ml UNSCH PRN IV FLUSH FLUSH AFTER USING IV ACCESS ; Start 09/07/16 at 18:45; Stop 09/12/16 at 17:55; Status DC Enalaprilat (Vasotec Inj) 1.25 mg Q8H PRN IV SBP>180, DBP>95; Start 09/07/16 at 18:45; Stop 09/17/16 at 13:35; Status DC Ondansetron HCl (Zofran Inj) 4 mg Q6H PRN IV NAUSEA OR VOMITING; Start at 18:45 Pantoprazole Sodium (Protonix Inj) 40 mg Q24H IVP Last administered on 20:45; Start 09/07/16 at 20:00; Stop 09/17/16 at 13:35; Status DC Docusate Sodium (Colace) 100 mg BID PO Last administered on 09/09/16 21:33; Start 09/07/16 at 21:00; Stop 09/10/16 at 09:20; Status DC Magnesium Hydroxide (Milk Of Magnesia Liq) 30 ml Q6H PRN PO CONSTIPATION; Start 09/07/16 at 18:45 Miscellaneous Information 1 [id number] Last administered on 09/07/16 18:45; Start 09/07/16 at 18:45 Chlorhexidine Gluconate (Chlorhexidine 2% Cloth) 3 pack Taper DAILY@04 TOP Last administered on 09/27/16 04:00; Start 09/08/16 at 04:00; Stop 09/04/17 at 03:59 Chlorhexidine Gluconate 3 pack 3 pack UNSCH PRN TOP HYGIENIC CARE; Start at 18:45 Propofol 100 ml @ As Directed STK-MED ONCE .ROUTE Last administered on 01:42; Start 09/07/16 at 19:20; Stop 09/07/16 at 19:21; Status DC Midazolam HCl (Versed 100 Mg/ ml Inj) 100 ml @ 0 mls/hr TITRATE IV Last administered on 09/07/16 21:33; Start 09/07/16 at 21:30; Stop 09/11/16 at 11:27 ; Status DC Lorazepam 1 mg 1 mg Q1H PRN IV SEIZURES Last administered on 09/26/16 22:04; Start 09/07/16 at 22:00 Midazolam HCl 100 ml @ 0 mls/hr TITRATE IV ; Start 09/07/16 at 22:00; Stop 09/07 at 22:00; Status DC Miscellaneous Information ml @ 0 mls/hr UNSCH IV ; Start 09/07/16 at 22:00; Stop 09/27/16 at 09:58; Status DC Sodium Chloride (NS Flush) 2 ml UNSCH PRN IV FLUSH FLUSH AFTER USING IV ACCESS Last administered on 09/19/16 19:58; Start 09/07/16 at 22:00 Sodium Chloride 2 ml 2 ml UNSCH PRN IV FLUSH IV FLUSH Last administered on 09/24 21:57; Start 09/07/16 at 22:00 Sodium Chloride (NS 1000 ml Inj) 1,000 ml @ 2,000 mls/hr Q30M IV Last administered on 09/08/16 00:23; Start 09/07/16 at 22:00; Stop 09/07/16 at 22:59 ; Status DC Artificial Tears 1 applic 1 applic Q4H PRN EACH EYE SEE LABEL COMMENTS Last administered on 09/23/16 09:06; Start 09/07/16 at 22:00 Cisatracurium Besylate 100 mg/ Sodium Chloride 250 ml @ 0 mls/hr TITRATE PRN IV ONLY IF SHIVERING Last administered on 09/08/16 08:21; Start 09/07/16 at 21: 30; Stop 09/09/16 at 07:48; Status DC Norepinephrine Bitartrate 4 mg/ Sodium Chloride 250 ml @ 0 mls/hr TITRATE IV ; Start 09/07/16 at 21:30; Stop 09/08/16 at 12:56; Status DC Sodium Chloride 2,000 ml @ 0 mls/hr NOW IV ; Start 09/07/16 at 23:00; Stop at 23:56; Status DC Potassium Chloride 100 ml @ 50 mls/hr Q2H PRN IV For Potassium 2.8 - 3.2 mEq/ L Last administered on 09/13/16 09:02; Start 09/08/16 at 00:30; Stop 09/25/16 at 07:30; Status DC Potassium Chloride (KCl 20 Meq Premix Inj) 100 ml @ 50 mls/hr Q2H PRN IV For Potassium 2.8 - 3.2 mEq/L Last administered on 09/08/16 18:20; Start 09/08/16 at 00:30; Stop 09/25/16 at 07:30; Status DC Potassium Bicarb/ Potassium Chloride 50 meq 50 meq UNSCH PRN PO For Potassium 3.3 - 3.5 mEq/L; Start 09/08/16 at 00:30; Stop 09/25/16 at 07:30; Status DC Potassium Chloride 100 ml @ 25 mls/hr UNSCH PRN IV For Potassium 3.3 - 3.5 mEq /L Last administered on 09/15/16 04:38; Start 09/08/16 at 00:30; Stop 09/25/16 at 07:30; Status DC Potassium Chloride 100 ml @ 50 mls/hr Q2H PRN IV For Potassium 3.3 - 3.5 mEq/ L Last administered on 09/14/16 18:35; Start 09/08/16 at 00:30; Stop 09/25/16 at 07:30; Status DC Magnesium Sulfate/ Sodium Chloride (Magnesium Sulfate Inj/NS Inj) 100 ml @ 50 mls/hr UNSCH PRN IV For Magnesium 0.9 - 1.1 mg/dL; Start 09/08/16 at 00:30; Stop 09/25/16 at 07:30; Status DC Magnesium Oxide 800 mg 800 mg UNSCH PRN PO For Magnesium 1.2 - 1.6 mg/dL; Start 09/08/16 at 00:30; Stop 09/25/16 at 07:30; Status DC Magnesium Sulfate/ Sodium Chloride (Magnesium Sulfate Inj/NS Inj) 100 ml @ 50 mls/hr UNSCH PRN IV For Magnesium 1.2 - 1.6 mg/dL Last administered on 07:11; Start 09/08/16 at 00:30; Stop 09/25/16 at 07:30; Status DC Potassium Phosphate 2000 mg 2,000 mg Q4H PRN PO For Phosphorus < 2.5 mg/dL; Start 09/08/16 at 00:30; Stop 09/25/16 at 07:30; Status DC Sodium Phosphate/ Sodium Chloride (Sodium Phosphate Inj/NS 250 ml Inj) 250 ml @ 42 mls/hr UNSCH PRN IV For Phosphorus < 2.5 mg/dL; Start 09/08/16 at 00:30; Stop 09/25/16 at 07:30; Status DC Potassium Phosphate 2000 mg 2,000 mg UNSCH PRN PO/TUBE SEE LABEL COMMENTS; Start 09/08/16 at 00:30; Stop 09/25/16 at 07:30; Status DC Potassium Phosphate 30 mmol/ Sodium Chloride 260 ml @ 42 mls/hr UNSCH PRN IV SEE LABEL COMMENTS; Start 09/08/16 at 00:30; Stop 09/25/16 at 07:30; Status DC Propofol 100 ml @ As Directed STK-MED ONCE .ROUTE ; Start 09/08/16 at 01:36; Stop 09/08/16 at 01:37; Status DC Propofol (Diprivan 1000 Mg/100ml Inj) 100 ml @ 0 mls/hr TITRATE IV Last administered on 09/16/16 11:59; Start 09/08/16 at 02:00; Stop 09/27/16 at 09:58 ; Status DC Vecuronium [place] 10 mg 10 mg STK-MED ONCE .ROUTE ; Start 09/08/16 at 02:33; Stop 09/08/16 at 02:34; Status DC Sodium Chloride (NS 1000 ml Inj) 1,000 ml @ 0 mls/hr NOW IV Last administered on 09/08/16 02:44; Start 09/08/16 at 02:45; Stop 09/08/16 at 03:20; Status DC Vecuronium [place]more 10 mg 10 mg NOW IV Last administered on 09/08/16 02:43; Start 09/08/16 at 02:35; Stop 09/08/16 at 02:46; Status DC Sodium Bicarbonate 150 meq/Dextrose 1,150 ml @ 100 mls/hr [id number] IV Last administered on 09/08/16 03:53; Start 09/08/16 at 04:00; Stop 09/08/16 at 12:56 ; Status DC Fentanyl Citrate (fentaNYL DRIP) 250 ml @ 0 mls/hr TITRATE IV Last administered on 09/08/16 05:06; Start 09/08/16 at 05:00; Stop 09/11/16 at 11:27 ; Status DC Phenylephrine HCl (Neosynephrine Inj) 10 mg STK-MED ONCE .ROUTE ; Start at 07:00; Stop 09/08/16 at 07:02; Status DC Phenylephrine HCl 10 mg 10 mg STK-MED ONCE .ROUTE ; Start 09/08/16 at 07:06; Stop 09/08/16 at 07:07; Status DC Piperacillin Sod/ Tazobactam Sod (Zosyn 4.5 Gm Premix) 100 ml @ 200 mls/hr Q6H IV Last administered on 09/16/16 02:36; Start 09/08/16 at 08:00; Stop 09/16/16 at 06:00; Status DC Terbutaline Sulfate 1 mg 1 mg UNSCH PRN SQ For Extravasation; Start 09/08/16 at 07:30; Stop 09/08/16 at 13:02; Status DC Phenylephrine HCl 160 mg/Dextrose 500 ml @ 0 mls/hr TITRATE IV ; Start 09/08/16 at 07:30; Stop 09/08/16 at 12:57; Status DC Sodium Chloride (NS 1000 ml Inj) 1,000 ml @ 999 mls/hr BOLUS ONCE IV Last administered on 09/08/16 07:30; Start 09/08/16 at 07:30; Stop 09/08/16 at 08:30 ; Status DC Albumin Human 25 gm 25 gm ONCE ONCE IV Last administered on 09/08/16 08:05; Start 09/08/16 at 08:00; Stop 09/08/16 at 08:01; Status DC Vancomycin HCl 1000 mg/Sodium Chloride 250 ml @ 250 mls/hr ONCE ONCE IV Last administered on 09/08/16 09:01; Start 09/08/16 at 08:30; Stop 09/08/16 at 09:29 ; Status DC Sodium Bicarbonate (Sodium Bicarbonate 8.4% Inj) 50 ml @ As Directed STK-MED ONCE .ROUTE ; Start 09/08/16 at 08:49; Stop 09/08/16 at 08:50; Status DC Sodium Bicarbonate 100 meq 100 meq STAT ONCE IV Last administered on 09:00; Start 09/08/16 at 11:00; Stop 09/08/16 at 11:01; Status DC Norepinephrine Bitartrate/Sodium Chloride (Levophed Inj/NS 250 ml Inj) 250 ml @ 0 mls/hr TITRATE IV Last administered on 09/09/16 17:54; Start 09/08/16 at 13: 00; Stop 09/09/16 at 11:11; Status DC Terbutaline Sulfate 1 mg 1 mg UNSCH PRN SQ For Extravasation; Start 09/08/16 at 13:00; Stop 09/09/16 at 17:47; Status DC Sodium Bicarbonate 150 meq/Sterile Water 1,150 ml @ 150 mls/hr Q7H40M IV Last administered on 09/09/16 05:26; Start 09/08/16 at 15:00; Stop 09/09/16 at 07:47 ; Status DC Sodium Chloride 1,000 ml @ 0 mls/hr BOLUS ONCE IV Last administered on 14:00; Start 09/08/16 at 14:15; Stop 09/08/16 at 14:16; Status DC Sodium Chloride 1,000 ml @ 0 mls/hr BOLUS ONCE IV ; Start 09/08/16 at 14:30; Stop 09/08/16 at 14:31; Status Cancel Sodium Chloride (NS 1000 ml Inj) 1,000 ml @ 999 mls/hr BOLUS ONCE IV Last administered on 09/08/16 18:00; Start 09/08/16 at 18:00; Stop 09/08/16 at 19:00 ; Status DC Lorazepam (Ativan Inj) 2 mg STK-MED ONCE .ROUTE ; Start 09/09/16 at 06:53; Stop 09/09/16 at 06:54; Status DC Lorazepam (Ativan Inj) 4 mg STK-MED ONCE .ROUTE ; Start 09/09/16 at 06:57; Stop 09/09/16 at 06:58; Status DC Phenylephrine HCl (Neosynephrine Inj) 40 mg STK-MED ONCE .ROUTE ; Start at 07:33; Stop 09/09/16 at 07:34; Status DC Phenylephrine HCl 40 mg 40 mg STK-MED ONCE .ROUTE ; Start 09/09/16 at 07:34; Stop 09/09/16 at 07:35; Status DC Fosphenytoin Sodium/Sodium Chloride (Cerebyx Inj/NS Inj) 70 ml @ 280 mls/hr ONCE ONCE IV Last administered on 09/09/16 08:15; Start 09/09/16 at 09:00; Stop 09/09/16 at 09:14; Status DC Fosphenytoin Sodium (Cerebyx Inj) 100 mgpe Q8HR IV Last administered on 23:34; Start 09/09/16 at 14:00; Stop 09/18/16 at 04:56; Status DC Lorazepam 6 mg 6 mg ONCE ONCE IV Last administered on 09/09/16 07:00; Start 09/09/16 at 08:00; Stop 09/09/16 at 08:01; Status DC Phenylephrine HCl/ Dextrose (Neosynephrine Inj/D5W 500 ml Inj) 500 ml @ 0 mls/ hr TITRATE IV ; Start 09/09/16 at 09:45; Stop 09/09/16 at 09:45; Status DC Terbutaline Sulfate 1 mg 1 mg UNSCH PRN SQ FOR EXTRAVASATION PROTOCOL; Start at 09:45; Stop 09/13/16 at 08:38; Status DC Phenylephrine HCl 40 mg/Sodium Chloride 500 ml @ 0 mls/hr TITRATE IV Last administered on 09/09/16 17:55; Start 09/09/16 at 09:45; Stop 09/09/16 at 17:47 ; Status DC Vancomycin HCl 1000 mg/Sodium Chloride 250 ml @ 250 mls/hr ONCE ONCE IV Last administered on 09/09/16 11:23; Start 09/09/16 at 10:45; Stop 09/09/16 at 11:44 ; Status DC Pharmacy Profile Note 0 ml @ 0 mls/hr UNSCH OTHER ; Start 09/09/16 at 10:45; Stop 09/13/16 at 08:39; Status DC Norepinephrine Bitartrate 4 mg/ Sodium Chloride 250 ml @ 0 mls/hr TITRATE IV Last administered on 09/09/16 15:33; Start 09/09/16 at 11:15; Stop 09/09/16 at 17:47; Status DC Vancomycin HCl/ Sodium Chloride (Vancomycin Inj/ NS 250 ml Inj) 250 ml @ 250 mls/hr Q8H IV Last administered on 09/11/16 05:52; Start 09/09/16 at 20:00; Stop 09/11/16 at 12:58; Status DC Miscellaneous Information SPECIFIC LAB TO BE DRAWN:VANCOMYCIN TROUGH DATE TO... ONCE ONCE .XX Last administered on 09/10/16 11:27; Start 09/10/16 at 11:45; Stop 09/10/16 at 11:46; Status DC Sodium Chloride (NS 1000 ml Inj) 1,000 ml @ 999 mls/hr Q1H1M IV Last administered on 09/09/16 11:00; Start 09/09/16 at 11:45; Stop 09/09/16 at 13:45 ; Status DC Gadodiamide 20 ml 20 ml STK-MED ONCE IV Last administered on 09/09/16 16:39; Start 09/09/16 at 16:39; Stop 09/09/16 at 16:40; Status DC Phenylephrine HCl/ Dextrose (Neosynephrine Inj/D5W 500 ml Inj) 500 ml @ 0 mls/ hr TITRATE IV ; Start 09/09/16 at 18:00; Stop 09/09/16 at 18:00; Status DC Terbutaline Sulfate 1 mg 1 mg UNSCH PRN SQ FOR EXTRAVASATION PROTOCOL; Start at 18:00; Stop 09/13/16 at 08:38; Status DC Norepinephrine Bitartrate 16 mg/ Dextrose 250 ml @ 0 mls/hr TITRATE IV ; Start 09/09/16 at 18:00; Stop 09/09/16 at 18:00; Status DC Phenylephrine HCl 160 mg/Sodium Chloride 500 ml @ 0 mls/hr TITRATE IV Last administered on 09/10/16 04:52; Start 09/09/16 at 18:00; Stop 09/11/16 at 11:27 ; Status DC Norepinephrine Bitartrate/Sodium Chloride (Levophed Inj/NS 250 ml Inj) 250 ml @ 0 mls/hr TITRATE IV Last administered on 09/10/16 04:52; Start 09/09/16 at 18: 00; Stop 09/13/16 at 08:39; Status DC Aspirin (Aspirin Chew) 81 mg DAILY CHEW Last administered on 09/13/16 10:09; Start 09/10/16 at 09:00; Status Hold Artificial Tears (Tears Naturale Opth Soln) 1 drop BID EACH EYE Last administered on 09/27/16 07:56; Start 09/10/16 at 21:00 Docusate Sodium (Colace Liq) 100 mg BID PO Last administered on 09/26/16 20:19 ; Start 09/10/16 at 21:00; Stop 09/27/16 at 09:58; Status DC Midazolam HCl (Versed Inj) 5 mg STK-MED ONCE .ROUTE ; Start 09/10/16 at 09:43; Stop 09/10/16 at 09:44; Status DC Acetaminophen (Tylenol 650 Mg/ 20 ml Liq) 650 mg NOW ONCE PO Last administered on 09/10/16 11:19; Start 09/10/16 at 10:30; Stop 09/10/16 at 10:31 ; Status DC Dextrose (D50w (Syr) Inj) 50 ml STK-MED ONCE .ROUTE ; Start 09/10/16 at 12:49; Stop 09/10/16 at 12:50; Status DC Dextrose (D50w (Syr) Inj) 50 ml NOW ONCE IV PUSH Last administered on 12:45; Start 09/10/16 at 13:30; Stop 09/10/16 at 13:31; Status DC Miscellaneous Information SPECIFIC LAB TO BE DRAWN:VANCOMYCIN TROUGH DATE TO... ONCE ONCE .XX Last administered on 09/11/16 11:45; Start 09/11/16 at 11:45; Stop 09/11/16 at 11:46; Status DC Midazolam HCl (Versed Inj) 3 mg ONCE ONCE IV PUSH Last administered on 09:44; Start 09/10/16 at 14:15; Stop 09/10/16 at 14:16; Status DC Dextrose 50 ml 50 ml NOW ONCE IV PUSH Last administered on 09/10/16 16:09; Start 09/10/16 at 16:00; Stop 09/10/16 at 16:34; Status DC Sodium Chloride (NS 1000 ml Inj) 1,000 ml @ 100 mls/hr Q10H IV Last administered on 09/15/16 13:20; Start 09/11/16 at 12:00; Stop 09/15/16 at 19:09; Status DC Propranolol HCl (Inderal) 20 mg Q8HR PO Last administered on 09/12/16 04:44; Start 09/11/16 at 14:00; Stop 09/12/16 at 17:13; Status DC Magnesium Citrate (Citroma Liq) 300 ml ONCE ONCE NG ; Start 09/12/16 at 09:00; Stop 09/12/16 at 09:01; Status DC Lactulose 30 ml 30 ml QID PO Last administered on 09/22/16 16:43; Start at 09:00; Stop 09/24/16 at 15:54; Status DC Vancomycin HCl/ Sodium Chloride (Vancomycin Inj/ NS 250 ml Inj) 250 ml @ 250 mls/hr Q12H IV Last administered on 09/12/16 21:29; Start 09/12/16 at 10:00; Stop 09/13/16 at 08:39; Status DC Miscellaneous Information SPECIFIC LAB TO BE CHANDU... ONCE ONCE .XX ; Start at 09:45; Stop 09/14/16 at 09:45; Status DC Furosemide (Lasix Inj) 20 mg ONCE ONCE IV PUSH Last administered on 09/12/16 12:04; Start 09/12/16 at 09:30; Stop 09/12/16 at 09:31; Status DC Mannitol 12.5 gm 12.5 gm Q8H IV Last administered on 09/12/16 15:37; Start at 14:00; Stop 09/12/16 at 21:51; Status DC Sodium Chloride 188 meq/Sodium Chloride 1,047 ml @ 20 mls/hr Q24H IV Last administered on 09/14/16 19:49; Start 09/12/16 at 16:00; Stop 09/16/16 at 15:33; Status DC Norepinephrine Bitartrate (Levophed-Dextrose Drip) 250 ml @ 0 mls/hr TITRATE IV Last administered on 09/16/16 05:37; Start 09/12/16 at 18:00; Stop 09/16/16 at 08:02; Status DC Terbutaline Sulfate (Brethine Inj) 1 mg UNSCH PRN SQ For Extravasation; Start 09/12/16 at 18:00; Stop 09/16/16 at 08:02; Status DC Iohexol (Omnipaque 350 Inj) 30 ml STK-MED ONCE IV Last administered on 21:02; Start 09/12/16 at 21:02; Stop 09/12/16 at 21:03; Status DC Mannitol (Mannitol Inj) 12.5 gm Q8H IV Last administered on 09/16/16 06:56; Start 09/12/16 at 23:00; Stop 09/17/16 at 04:13; Status DC Potassium Bicarb/ Potassium Chloride (K-Lyte Cl Eff) 25 meq DAILY PO Last administered on 09/27/16 07:56; Start 09/13/16 at 09:00; Stop 09/27/16 at 09:58 ; Status DC Magnesium Citrate (Citroma Liq) 300 ml ONCE ONCE PO ; Start 09/13/16 at 08:30; Stop 09/13/16 at 08:41; Status DC Bisacodyl (Dulcolax Supp) 10 mg DAILY RECTAL Last administered on 09/13/16 10: 09; Start 09/13/16 at 09:00 Oxycodone HCl (Roxicodone) 5 mg Q6H OG-TUBE Last administered on 09/27/16 14: 33; Start 09/14/16 at 20:00 Fentanyl Citrate (fentaNYL INJ) 100 mcg ONCE ONCE IV PUSH ; Start 09/14/16 at 20 :00; Stop 09/14/16 at 20:01; Status DC Fentanyl Citrate (fentaNYL INJ) 50 mcg Q1H PRN IV PUSH PAIN 1-10 Last administered on 09/22/16 23:16; Start 09/14/16 at 19:00 Acetaminophen 650 mg 650 mg Q4H PRN PO FEVER Last administered on 09/26/16 15: 20; Start 09/15/16 at 20:30; Stop 09/27/16 at 09:58; Status DC Norepinephrine Bitartrate/Sodium Chloride (Levophed Inj/NS 250 ml Inj) 250 ml @ 0 mls/hr TITRATE IV Last administered on 09/16/16 09:11; Start 09/16/16 at 08:15 ; Stop 09/16/16 at 15:33; Status DC Terbutaline Sulfate (Brethine Inj) 1 mg UNSCH PRN SQ For Extravasation; Start 09/16/16 at 08:15; Stop 09/17/16 at 13:35; Status DC Pantoprazole Sodium (Protonix) 40 mg DAILY PO Last administered on 09/27/16 07 :56; Start 09/18/16 at 09:00; Stop 09/27/16 at 09:59; Status DC Furosemide (Lasix Inj) 20 mg ONCE ONCE IV PUSH Last administered on 09/17/16 14:30; Start 09/17/16 at 13:30; Stop 09/17/16 at 13:42; Status DC Cisatracurium Besylate (Nimbex Inj) 20 mg ONCE ONCE IV Last administered on 14:30; Start 09/17/16 at 13:30; Stop 09/17/16 at 13:43; Status DC Midazolam HCl (Versed Inj) 10 mg ONCE ONCE IV PUSH Last administered on 14:53; Start 09/17/16 at 13:30; Stop 09/17/16 at 13:44; Status DC Fentanyl Citrate 250 mcg 250 mcg ONCE ONCE IV PUSH Last administered on 13:30; Start 09/17/16 at 13:30; Stop 09/17/16 at 13:42; Status DC Cefazolin Sodium/ Sodium Chloride (Ancef Inj/NS Inj) 100 ml @ 200 mls/hr [employer] IV ; Start 09/20/16 at 16:00; Stop 09/23/16 at 15:59; Status DC Clonazepam (KlonoPIN) 1 mg Q8H PO Last administered on 09/27/16 02:06; Start 09/17/16 at 18:00; Stop 09/27/16 at 09:58; Status DC Lorazepam (Ativan Inj) 3 mg NOW IV Last administered on 09/18/16 04:04; Start 09/18/16 at 04:00; Stop 09/18/16 at 05:20; Status DC Acetaminophen (Ofirmev Inj) 1,000 mg NOW IV Last administered on 09/18/16 04:03 ; Start 09/18/16 at 04:00; Stop 09/18/16 at 05:20; Status DC Ibuprofen 600 mg 600 mg Q6H PRN PO fever >100.5 Last administered on 09/18/16 20:48; Start 09/18/16 at 04:15; Stop 09/18/16 at 20:55; Status DC Levetriacetam 100 ml @ 400 mls/hr Q12HR IV Last administered on 09/27/16 07: 56; Start 09/18/16 at 09:00; Stop 09/27/16 at 09:58; Status DC Cefepime HCl 2000 mg/Sodium Chloride 100 ml @ 200 mls/hr Q8H IV ; Start at 05:00; Stop 09/18/16 at 05:18; Status DC Vancomycin HCl/ Sodium Chloride (Vancomycin Inj/ NS 250 ml Inj) 250 ml @ 250 mls/hr ONCE ONCE IV Last administered on 09/18/16 08:40; Start 09/18/16 at 05: 00; Stop 09/18/16 at 05:59; Status DC Lorazepam 3 mg 3 mg NOW IV Last administered on 09/18/16 05:19; Start 09/18/16 at 05:30; Stop 09/18/16 at 06:30; Status DC Cefepime HCl/ Sodium Chloride (Maxipime Inj/NS Inj) 100 ml @ 200 mls/hr Q8H IV Last administered on 09/21/16 05:57; Start 09/18/16 at 06:00; Stop 09/21/16 at 08:02; Status DC Fondaparinux (Arixtra Inj) 7.5 mg Q24H SQ Last administered on 09/27/16 06:07 ; Start 09/18/16 at 06:00 Propranolol HCl 20 mg 20 mg Q6HR PO Last administered on 09/27/16 06:06; Start 09/18/16 at 06:45; Stop 09/27/16 at 09:58; Status DC Sodium Chloride/ Sodium Chloride (Sodium Chloride 23.4% Inj/NS 1000 ml Inj) 1, 047 ml @ 20 mls/hr Q24H IV Last administered on 09/18/16 19:50; Start 09/18/16 at 20:00; Stop 09/19/16 at 07:57; Status DC Ibuprofen (Motrin Liq) 600 mg Q6H PRN PO FEVER > 100.5 Last administered on 09/19 14:20; Start 09/18/16 at 21:00; Stop 09/27/16 at 09:58; Status DC Sodium Chloride (Sodium Chloride) 3 gm Q8H PO Last administered on 09/27/16 07 :55; Start 09/19/16 at 08:00; Stop 09/27/16 at 09:58; Status DC Acetaminophen (Ofirmev Inj) 1,000 mg UNSCH X1 IV Last administered on 22:52; Start 09/19/16 at 22:15; Stop 09/19/16 at 23:45; Status DC Propofol 300 mg 300 mg STK-MED ONCE IV ; Start 09/20/16 at 15:16; Stop 09/20/16 at 16:16; Status DC Cefazolin Sodium/ Dextrose (Ancef 2 Gm Premix) 50 ml @ 100 mls/hr Q8H IV Last administered on 09/26/16 23:00; Start 09/21/16 at 08:00; Stop 09/27/16 at 07:59 ; Status DC Acetaminophen (Tylenol 650 Mg/ 20 ml Liq) 650 mg Q4H PRN G-TUBE FEVER; Start at 12:30 Clonazepam (KlonoPIN) 1 mg Q8H G-TUBE Last administered on 09/27/16 16:51; Start 09/27/16 at 10:00 Docusate Sodium (Colace Liq) 100 mg BID G-TUBE ; Start 09/27/16 at 21:00 Potassium Bicarb/ Potassium Chloride (K-Lyte Cl Eff) 25 meq DAILY G-TUBE ; Start 09/28/16 at 09:00 Propranolol HCl (Inderal) 20 mg Q6HR G-TUBE Last administered on 09/27/16 16: 51; Start 09/27/16 at 12:00 Sodium Chloride (Sodium Chloride) 3 gm Q8H G-TUBE Last administered on 14:33; Start 09/27/16 at 16:00 Levetriacetam (Keppra Liq) 1,000 mg Q12HR NG ; Start 09/27/16 at 21:00 Acetaminophen (Tylenol 650 Mg/ 20 ml Liq) 650 mg Q6H PRN G-TUBE fever; Start at 09:45; Stop 09/27/16 at 10:42; Status DC Metoclopramide HCl (Reglan Inj) 5 mg Q8HR IV PUSH Last administered on t 14:33; Start 09/27/16 at 14:00; Stop 10/02/16 at 13:59 Lansoprazole (Prevacid Odt) 30 mg DAILY NG ; Start 09/28/16 at 09:00 Albuterol/ Ipratropium (Duoneb Neb) 1 ampule Q6HR NEB NEB ; Start 09/27/16 at 10:00 Albuterol Sulfate (Albuterol Neb) 2.5 mg Q2HR NEB PRN NEB dyspnea; Start at 10:00 Docusate Sodium (Colace Liq) 100 mg Q12HR G-TUBE ; Start 09/27/16 at 21:00 Sodium Chloride (Sodium Chloride 3% Neb) 2 ml Q6HR NEB NEB ; Start 09/27/16 at 16:00; Stop 10/02/16 at 15:59 Medical Decision Making MDM Remarks Last Impressions Chest X-Ray 09/26/16 0000 Signed Impressions: Service Date/Time: Monday, September 26, 2016 10:39 - CONCLUSION: Stable appearance with mild infrahilar opacity again noted. Seth Breen MD Liver Ultrasound 09/18/16 0000 Signed Impressions: Service Date/Time: Sunday, September 18, 2016 09:27 - CONCLUSION: 1. There is sludge within the gallbladder. No other findings are present to indicate acute cholecystitis. 2. Mild splenomegaly. 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 This is nonocclusive. A retrievable IVC filter was deployed below the main hepatic veins but it was necessary to cross an accessory right hepatic vein. Jose Armando Jackson Jr., MD Head CT 09/12/16 0000 Signed Impressions: Service Date/Time: Monday, September 12, 2016 09:29 - CONCLUSION: Mild loss of lemos matter definition that can be seen with increasing intracranial pressure. Ricki Cavazos MD FACR Neck Magnetic Resonance Angiography 09/09/16 0000 Signed Impressions: Service Date/Time: August 16:02 - CONCLUSION: 1. Moderate to severe smooth narrowing of the left common carotid artery and also moderate narrowing of the proximal right common carotid artery as well as narrowing of both proximal vertebral arteries likely related to recent hanging. Etiology could be related to vasospasm or recent extrinsic prolonged compression. The distal internal carotid arteries and vertebral artery have more normal calibers. Findings called to Dr. Bhatt at the time of dictation. Gideon Brown MD Cervical Spine MRI 09/09/16 0000 Signed Impressions: Service Date/Time: August 16:02 - CONCLUSION: 1. Very minimal degenerative disc disease at C5-6. 2. No acute fracture or prevertebral soft tissue swelling. 3. No focal cervical cord abnormality. Tray Santiago MD Brain MRI 09/09/16 Signed Impressions: Service Date/Time: August 16:02 - CONCLUSION: 1. Diffuse FLAIR-weighted hyperintensities involving the caudate nuclei bilaterally, bilateral hummel radiata, as well as the bilateral parietal and occipital cortex consistent with the patient's clinical diagnosis of anoxic encephalopathy. 2. No acute hemorrhage, midline shift, extra-axial fluid collection or abnormal enhancement. 3. Small fluid level within the right sphenoid sinus. Tray Santiago MD Cervical Spine CT 09/07/16 1800 Signed Impressions: Service Date/Time: Wednesday, September 07, 2016 18:06 - CONCLUSION: 1. No fracture or subluxation. 2. Scattered groundglass nodules throughout the upper lobes, nonspecific but can be seen with hypersensitivity pneumonitis. Artem Madera MD Last Impressions Liver Ultrasound 09/18/16 Signed Impressions: Service Date/Time: Sunday, September 18, 2016 09:27 - CONCLUSION: 1. There is sludge within the gallbladder. No other findings are present to indicate acute cholecystitis. 2. Mild splenomegaly. Miller Lee MD Chest X-Ray 09/18/16 Signed Impressions: Service Date/Time: Sunday, September 18, 2016 05:01 - CONCLUSION: 1. Right perihilar edema versus pneumonia. There has been no significant change when compared to the prior exam. 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 This is nonocclusive. A retrievable IVC filter was deployed below the main hepatic veins but it was necessary to cross an accessory right hepatic vein. Jose Armando Jackson Jr., MD Head CT 09/12/16 0000 Signed Impressions: Service Date/Time: Monday, September 12, 2016 09:29 - CONCLUSION: Mild loss of lemos matter definition that can be seen with increasing intracranial pressure. Ricki Cavazos MD FACR Neck Magnetic Resonance Angiography 09/09/16 0000 Signed Impressions: Service Date/Time: August 16:02 - CONCLUSION: 1. Moderate to severe smooth narrowing of the left common carotid artery and also moderate narrowing of the proximal right common carotid artery as well as narrowing of both proximal vertebral arteries likely related to recent hanging. Etiology could be related to vasospasm or recent extrinsic prolonged compression. The distal internal carotid arteries and vertebral artery have more normal calibers. Findings called to Dr. Bhatt at the time of dictation. Gideon Brown MD Cervical Spine MRI 09/09/16 0000 Signed Impressions: Service Date/Time: August 16:02 - CONCLUSION: 1. Very minimal degenerative disc disease at C5-6. 2. No acute fracture or prevertebral soft tissue swelling. 3. No focal cervical cord abnormality. Tray Santiago MD Brain MRI 09/09/16 0000 Signed Impressions: Service Date/Time: August 16:02 - CONCLUSION: 1. Diffuse FLAIR-weighted hyperintensities involving the caudate nuclei bilaterally, bilateral hummel radiata, as well as the bilateral parietal and occipital cortex consistent with the patient's clinical diagnosis of anoxic encephalopathy. 2. No acute hemorrhage, midline shift, extra-axial fluid collection or abnormal enhancement. 3. Small fluid level within the right sphenoid sinus. Tray Santiago MD Cervical Spine CT 09/07/16 1800 Signed Impressions: Service Date/Time: Wednesday, September 07, 2016 18:06 - CONCLUSION: 1. No fracture or subluxation. 2. Scattered groundglass nodules throughout the upper lobes, nonspecific but can be seen with hypersensitivity pneumonitis. Artem Madera MD Last Impressions Liver Ultrasound 09/18/16 Signed Impressions: Service Date/Time: Sunday, September 18, 2016 09:27 - CONCLUSION: 1. There is sludge within the gallbladder. No other findings are present to indicate acute cholecystitis. 2. Mild splenomegaly. Miller Lee MD Chest X-Ray 09/18/16 Signed Impressions: Service Date/Time: Sunday, September 18, 2016 05:01 - CONCLUSION: 1. Right perihilar edema versus pneumonia. There has been no significant change when compared to the prior exam. 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 This is nonocclusive. A retrievable IVC filter was deployed below the main hepatic veins but it was necessary to cross an accessory right hepatic vein. Jose Armando Jackson Jr., MD Head CT 09/12/16 Signed Impressions: Service Date/Time: Monday, September 12, 2016 09:29 - CONCLUSION: Mild loss of lemos matter definition that can be seen with increasing intracranial pressure. Ricki Cavazos MD FACR Neck Magnetic Resonance Angiography 09/09/16 Signed Impressions: Service Date/Time: August 16:02 - CONCLUSION: 1. Moderate to severe smooth narrowing of the left common carotid artery and also moderate narrowing of the proximal right common carotid artery as well as narrowing of both proximal vertebral arteries likely related to recent hanging. Etiology could be related to vasospasm or recent extrinsic prolonged compression. The distal internal carotid arteries and vertebral artery have more normal calibers. Findings called to Dr. Bhatt at the time of dictation. Gideon Brown MD Cervical Spine MRI 09/09/16 Signed Impressions: Service Date/Time: August 16:02 - CONCLUSION: 1. Very minimal degenerative disc disease at C5-6. 2. No acute fracture or prevertebral soft tissue swelling. 3. No focal cervical cord abnormality. Tray Santiago MD Brain MRI 09/09/16 Signed Impressions: Service Date/Time: August 16:02 - CONCLUSION: 1. Diffuse FLAIR-weighted hyperintensities involving the caudate nuclei bilaterally, bilateral hummel radiata, as well as the bilateral parietal and occipital cortex consistent with the patient's clinical diagnosis of anoxic encephalopathy. 2. No acute hemorrhage, midline shift, extra-axial fluid collection or abnormal enhancement. 3. Small fluid level within the right sphenoid sinus. Tray Santiago MD Cervical Spine CT 09/07/16 1800 Signed Impressions: Service Date/Time: Wednesday, September 07, 2016 18:06 - CONCLUSION: 1. No fracture or subluxation. 2. Scattered groundglass nodules throughout the upper lobes, nonspecific but can be seen with hypersensitivity pneumonitis. Artem Madera MD Last Impressions Liver Ultrasound 09/18/16 0000 Signed Impressions: Service Date/Time: Sunday, September 18, 2016 09:27 - CONCLUSION: 1. There is sludge within the gallbladder. No other findings are present to indicate acute cholecystitis. 2. Mild splenomegaly. Miller Lee MD Chest X-Ray 09/18/16 0000 Signed Impressions: Service Date/Time: Sunday, September 18, 2016 05:01 - CONCLUSION: 1. Right perihilar edema versus pneumonia. There has been no significant change when compared to the prior exam. 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 This is nonocclusive. A retrievable IVC filter was deployed below the main hepatic veins but it was necessary to cross an accessory right hepatic vein. Jose Armando Jackson Jr., MD Head CT 09/12/16 0000 Signed Impressions: Service Date/Time: Monday, September 12, 2016 09:29 - CONCLUSION: Mild loss of lemos matter definition that can be seen with increasing intracranial pressure. Ricki Cavazos MD FACR Neck Magnetic Resonance Angiography 09/09/16 0000 Signed Impressions: Service Date/Time: August 16:02 - CONCLUSION: 1. Moderate to severe smooth narrowing of the left common carotid artery and also moderate narrowing of the proximal right common carotid artery as well as narrowing of both proximal vertebral arteries likely related to recent hanging. Etiology could be related to vasospasm or recent extrinsic prolonged compression. The distal internal carotid arteries and vertebral artery have more normal calibers. Findings called to Dr. Bhatt at the time of dictation. Gideon Brown MD Cervical Spine MRI 09/09/16 0000 Signed Impressions: Service Date/Time: August 16:02 - CONCLUSION: 1. Very minimal degenerative disc disease at C5-6. 2. No acute fracture or prevertebral soft tissue swelling. 3. No focal cervical cord abnormality. Tray Santiago MD Brain MRI 09/09/16 0000 Signed Impressions: Service Date/Time: August 16:02 - CONCLUSION: 1. Diffuse FLAIR-weighted hyperintensities involving the caudate nuclei bilaterally, bilateral hummel radiata, as well as the bilateral parietal and occipital cortex consistent with the patient's clinical diagnosis of anoxic encephalopathy. 2. No acute hemorrhage, midline shift, extra-axial fluid collection or abnormal enhancement. 3. Small fluid level within the right sphenoid sinus. Tray Santiago MD Cervical Spine CT 09/07/16 1800 Signed Impressions: Service Date/Time: Wednesday, September 07, 2016 18:06 - CONCLUSION: 1. No fracture or subluxation. 2. Scattered groundglass nodules throughout the upper lobes, nonspecific but can be seen with hypersensitivity pneumonitis. Artem Madera MD Last Impressions Liver Ultrasound 09/18/16 0000 Signed Impressions: Service Date/Time: Sunday, September 18, 2016 09:27 - CONCLUSION: 1. There is sludge within the gallbladder. No other findings are present to indicate acute cholecystitis. 2. Mild splenomegaly. Miller Lee MD Chest X-Ray 09/18/16 0000 Signed Impressions: Service Date/Time: Sunday, September 18, 2016 05:01 - CONCLUSION: 1. Right perihilar edema versus pneumonia. There has been no significant change when compared to the prior exam. 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 This is nonocclusive. A retrievable IVC filter was deployed below the main hepatic veins but it was necessary to cross an accessory right hepatic vein. Jose Armando Jackson Jr., MD Head CT 09/12/16 0000 Signed Impressions: Service Date/Time: Monday, September 12, 2016 09:29 - CONCLUSION: Mild loss of lemos matter definition that can be seen with increasing intracranial pressure. Ricki Cavazos MD FACR Neck Magnetic Resonance Angiography 09/09/16 0000 Signed Impressions: Service Date/Time: August 16:02 - CONCLUSION: 1. Moderate to severe smooth narrowing of the left common carotid artery and also moderate narrowing of the proximal right common carotid artery as well as narrowing of both proximal vertebral arteries likely related to recent hanging. Etiology could be related to vasospasm or recent extrinsic prolonged compression. The distal internal carotid arteries and vertebral artery have more normal calibers. Findings called to Dr. Bhatt at the time of dictation. Gideon Brown MD Cervical Spine MRI 09/09/16 0000 Signed Impressions: Service Date/Time: August 16:02 - CONCLUSION: 1. Very minimal degenerative disc disease at C5-6. 2. No acute fracture or prevertebral soft tissue swelling. 3. No focal cervical cord abnormality. Tray Santiago MD Brain MRI 09/09/16 0000 Signed Impressions: Service Date/Time: August 16:02 - CONCLUSION: 1. Diffuse FLAIR-weighted hyperintensities involving the caudate nuclei bilaterally, bilateral hummel radiata, as well as the bilateral parietal and occipital cortex consistent with the patient's clinical diagnosis of anoxic encephalopathy. 2. No acute hemorrhage, midline shift, extra-axial fluid collection or abnormal enhancement. 3. Small fluid level within the right sphenoid sinus. Tray Santiago MD Cervical Spine CT 09/07/16 1800 Signed Impressions: Service Date/Time: Wednesday, September 07, 2016 18:06 - CONCLUSION: 1. No fracture or subluxation. 2. Scattered groundglass nodules throughout the upper lobes, nonspecific but can be seen with hypersensitivity pneumonitis. Artem Madera MD Last Impressions Liver Ultrasound 09/18/16 0000 Signed Impressions: Service Date/Time: Sunday, September 18, 2016 09:27 - CONCLUSION: 1. There is sludge within the gallbladder. No other findings are present to indicate acute cholecystitis. 2. Mild splenomegaly. Miller Lee MD Chest X-Ray 09/18/16 Signed Impressions: Service Date/Time: Sunday, September 18, 2016 05:01 - CONCLUSION: 1. Right perihilar edema versus pneumonia. There has been no significant change when compared to the prior exam. 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 This is nonocclusive. A retrievable IVC filter was deployed below the main hepatic veins but it was necessary to cross an accessory right hepatic vein. Jose Armando Jackson Jr., MD Head CT 09/12/16 Signed Impressions: Service Date/Time: Monday, September 12, 2016 09:29 - CONCLUSION: Mild loss of lemos matter definition that can be seen with increasing intracranial pressure. Ricki Cavazos MD FACR Neck Magnetic Resonance Angiography 09/09/16 Signed Impressions: Service Date/Time: August 16:02 - CONCLUSION: 1. Moderate to severe smooth narrowing of the left common carotid artery and also moderate narrowing of the proximal right common carotid artery as well as narrowing of both proximal vertebral arteries likely related to recent hanging. Etiology could be related to vasospasm or recent extrinsic prolonged compression. The distal internal carotid arteries and vertebral artery have more normal calibers. Findings called to Dr. Bhatt at the time of dictation. Gideon Brown MD Cervical Spine MRI 09/09/16 0000 Signed Impressions: Service Date/Time: August 16:02 - CONCLUSION: 1. Very minimal degenerative disc disease at C5-6. 2. No acute fracture or prevertebral soft tissue swelling. 3. No focal cervical cord abnormality. Tray Santiago MD Brain MRI 09/09/16 0000 Signed Impressions: Service Date/Time: August 16:02 - CONCLUSION: 1. Diffuse FLAIR-weighted hyperintensities involving the caudate nuclei bilaterally, bilateral hummel radiata, as well as the bilateral parietal and occipital cortex consistent with the patient's clinical diagnosis of anoxic encephalopathy. 2. No acute hemorrhage, midline shift, extra-axial fluid collection or abnormal enhancement. 3. Small fluid level within the right sphenoid sinus. Tray Santiago MD Cervical Spine CT 09/07/16 1800 Signed Impressions: Service Date/Time: Wednesday, September 07, 2016 18:06 - CONCLUSION: 1. No fracture or subluxation. 2. Scattered groundglass nodules throughout the upper lobes, nonspecific but can be seen with hypersensitivity pneumonitis. Artem Madera MD Last Impressions Liver Ultrasound 09/12/16 0000 Signed Impressions: Service Date/Time: Monday, September 12, 2016 16:15 - CONCLUSION: 1. 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 2. Pericholecystic fluid and gallbladder wall thickening raising the possibility of cholecystitis. A hepatobiliary scan may be helpful to confirm cystic duct obstruction if clinically indicated. 3. Gallbladder sludge. 4. Ascites. 5. Bilateral pleural effusions. 6. Mild hepatomegaly. 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 This is nonocclusive. A retrievable IVC filter was deployed below the main hepatic veins but it was necessary to cross an accessory right hepatic vein. Jose Armando Jackson Jr., MD Head CT 09/12/16 0000 Signed Impressions: Service Date/Time: Monday, September 12, 2016 09:29 - CONCLUSION: Mild loss of lemos matter definition that can be seen with increasing intracranial pressure. Ricki Cavazos MD FACR Neck Magnetic Resonance Angiography 09/09/16 0000 Signed Impressions: Service Date/Time: August 16:02 - CONCLUSION: 1. Moderate to severe smooth narrowing of the left common carotid artery and also moderate narrowing of the proximal right common carotid artery as well as narrowing of both proximal vertebral arteries likely related to recent hanging. Etiology could be related to vasospasm or recent extrinsic prolonged compression. The distal internal carotid arteries and vertebral artery have more normal calibers. Findings called to Dr. Bhatt at the time of dictation. Gideon Brown MD Cervical Spine MRI 09/09/16 0000 Signed Impressions: Service Date/Time: August 16:02 - CONCLUSION: 1. Very minimal degenerative disc disease at C5-6. 2. No acute fracture or prevertebral soft tissue swelling. 3. No focal cervical cord abnormality. Tray Santiago MD Brain MRI 09/09/16 0000 Signed Impressions: Service Date/Time: August 16:02 - CONCLUSION: 1. Diffuse FLAIR-weighted hyperintensities involving the caudate nuclei bilaterally, bilateral hummel radiata, as well as the bilateral parietal and occipital cortex consistent with the patient's clinical diagnosis of anoxic encephalopathy. 2. No acute hemorrhage, midline shift, extra-axial fluid collection or abnormal enhancement. 3. Small fluid level within the right sphenoid sinus. Tray Santiago MD Cervical Spine CT 09/07/16 1800 Signed Impressions: Service Date/Time: Wednesday, September 07, 2016 18:06 - CONCLUSION: 1. No fracture or subluxation. 2. Scattered groundglass nodules throughout the upper lobes, nonspecific but can be seen with hypersensitivity pneumonitis. Artem Madera MD Last Impressions Chest X-Ray 09/13/16 0600 Signed Impressions: Service Date/Time: Tuesday, September 13, 2016 04:49 - CONCLUSION: 1. Hazy opacity in both lungs without significant change. This may represent pulmonary edema which may be noncardiogenic. 2. Artifact projected over the right suprahilar region limiting visualization. Seth Breen MD Liver Ultrasound 09/12/16 0000 Signed Impressions: Service Date/Time: Monday, September 12, 2016 16:15 - CONCLUSION: 1. 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 2. Pericholecystic fluid and gallbladder wall thickening raising the possibility of cholecystitis. A hepatobiliary scan may be helpful to confirm cystic duct obstruction if clinically indicated. 3. Gallbladder sludge. 4. Ascites. 5. Bilateral pleural effusions. 6. Mild hepatomegaly. 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 This is nonocclusive. A retrievable IVC filter was deployed below the main hepatic veins but it was necessary to cross an accessory right hepatic vein. Jsoe Armando Jackson Jr., MD Head CT 09/12/16 0000 Signed Impressions: Service Date/Time: Monday, September 12, 2016 09:29 - CONCLUSION: Mild loss of lemos matter definition that can be seen with increasing intracranial pressure. Ricki Cavazos MD FACR Neck Magnetic Resonance Angiography 09/09/16 0000 Signed Impressions: Service Date/Time: August 16:02 - CONCLUSION: 1. Moderate to severe smooth narrowing of the left common carotid artery and also moderate narrowing of the proximal right common carotid artery as well as narrowing of both proximal vertebral arteries likely related to recent hanging. Etiology could be related to vasospasm or recent extrinsic prolonged compression. The distal internal carotid arteries and vertebral artery have more normal calibers. Findings called to Dr. Bhatt at the time of dictation. Gideon Brown MD Cervical Spine MRI 09/09/16 0000 Signed Impressions: Service Date/Time: August 16:02 - CONCLUSION: 1. Very minimal degenerative disc disease at C5-6. 2. No acute fracture or prevertebral soft tissue swelling. 3. No focal cervical cord abnormality. Tray Santiago MD Brain MRI 09/09/16 0000 Signed Impressions: Service Date/Time: August 16:02 - CONCLUSION: 1. Diffuse FLAIR-weighted hyperintensities involving the caudate nuclei bilaterally, bilateral hummel radiata, as well as the bilateral parietal and occipital cortex consistent with the patient's clinical diagnosis of anoxic encephalopathy. 2. No acute hemorrhage, midline shift, extra-axial fluid collection or abnormal enhancement. 3. Small fluid level within the right sphenoid sinus. Tray Santiago MD Cervical Spine CT 09/07/16 1800 Signed Impressions: Service Date/Time: Wednesday, September 07, 2016 18:06 - CONCLUSION: 1. No fracture or subluxation. 2. Scattered groundglass nodules throughout the upper lobes, nonspecific but can be seen with hypersensitivity pneumonitis. Artem Madera MD Last Impressions Chest X-Ray 09/13/16 0600 Signed Impressions: Service Date/Time: Tuesday, September 13, 2016 04:49 - CONCLUSION: 1. Hazy opacity in both lungs without significant change. This may represent pulmonary edema which may be noncardiogenic. 2. Artifact projected over the right suprahilar region limiting visualization. Seth Breen MD Liver Ultrasound 09/12/16 Signed Impressions: Service Date/Time: Monday, September 12, 2016 16:15 - CONCLUSION: 1. 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 2. Pericholecystic fluid and gallbladder wall thickening raising the possibility of cholecystitis. A hepatobiliary scan may be helpful to confirm cystic duct obstruction if clinically indicated. 3. Gallbladder sludge. 4. Ascites. 5. Bilateral pleural effusions. 6. Mild hepatomegaly. 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 This is nonocclusive. A retrievable IVC filter was deployed below the main hepatic veins but it was necessary to cross an accessory right hepatic vein. Jose Armando Jackson Jr., MD Head CT 09/12/16 Signed Impressions: Service Date/Time: Monday, September 12, 2016 09:29 - CONCLUSION: Mild loss of lemos matter definition that can be seen with increasing intracranial pressure. Ricki Cavazos MD FACR Neck Magnetic Resonance Angiography 09/09/16 Signed Impressions: Service Date/Time: August 16:02 - CONCLUSION: 1. Moderate to severe smooth narrowing of the left common carotid artery and also moderate narrowing of the proximal right common carotid artery as well as narrowing of both proximal vertebral arteries likely related to recent hanging. Etiology could be related to vasospasm or recent extrinsic prolonged compression. The distal internal carotid arteries and vertebral artery have more normal calibers. Findings called to Dr. Bhatt at the time of dictation. Gideon Brown MD Cervical Spine MRI 09/09/16 Signed Impressions: Service Date/Time: August 16:02 - CONCLUSION: 1. Very minimal degenerative disc disease at C5-6. 2. No acute fracture or prevertebral soft tissue swelling. 3. No focal cervical cord abnormality. Tray Santiago MD Brain MRI 09/09/16 Signed Impressions: Service Date/Time: August 16:02 - CONCLUSION: 1. Diffuse FLAIR-weighted hyperintensities involving the caudate nuclei bilaterally, bilateral hummel radiata, as well as the bilateral parietal and occipital cortex consistent with the patient's clinical diagnosis of anoxic encephalopathy. 2. No acute hemorrhage, midline shift, extra-axial fluid collection or abnormal enhancement. 3. Small fluid level within the right sphenoid sinus. Tray Santiago MD Cervical Spine CT 09/07/16 1800 Signed Impressions: Service Date/Time: Wednesday, September 07, 2016 18:06 - CONCLUSION: 1. No fracture or subluxation. 2. Scattered groundglass nodules throughout the upper lobes, nonspecific but can be seen with hypersensitivity pneumonitis. Artem Madera MD Attending Statement Continue neuro checks. She should remain in ICU, not on the floor. Pulmonary. Continue mechanical ventilation. Continue aggressive pulmonary toilette, nasotracheal suction, and breathing treatments with nebulizers. Nutrition. NPO Renal. monitor closely urine output, BUN and creatinine Endocrine. Monitor serial Acu checks and SSI as needed in detail ID IV antibiotics for staph aereus. Protonix for stress ulcer prophylaxis Carlitos hose and SCD's for DVT prophylaxis Jomar José MD Sep 27, 2016 16:57
[2016-09-27] MEDS: RESP: SODIUM CHLORIDE 3% 4 ML NEB NEB SCH ×2 (17:45→21:17)
[2016-09-27] MEDS: RESP: ALBUTEROL 2.5 MG/IPRATROPIUM 0.5 MG NEB (SCH) NEB ×2 (17:45→21:17)
--- NOTE | 2016-09-27 18:57 | HHI.PR ---
Subjective Remarks 20 YOWF with Anoxic encephalopathy, cardiac arrest, hanging Has twitching movements No Fever Developed SOB last night On [facility] Objective Vital Signs Vital Signs Date Time Temp Pulse Resp B/P Pulse Ox O2 Delivery O2 Flow Rate FiO2 09/27/16 18:00 97 09/27/16 17:45 98 50 09/27/16 16:00 98.1 103 17 94/51 99 09/27/16 16:00 50 09/27/16 16:00 104 09/27/16 14:00 98 09/27/16 13:11 100 50 09/27/16 12:00 104 09/27/16 12:00 98.1 103 17 94/51 99 09/27/16 12:00 50 09/27/16 10:00 102 09/27/16 08:29 99 50 09/27/16 08:00 50 09/27/16 08:00 104 09/27/16 08:00 98.1 103 17 94/51 99 09/27/16 06:00 111 09/27/16 05:10 97 50 09/27/16 04:00 109 09/27/16 04:00 45 09/27/16 04:00 99.7 109 22 111/59 98 09/27/16 03:40 97 45 09/27/16 02:00 103 09/27/16 00:32 100 50 09/27/16 00:00 98.7 104 22 116/65 100 09/27/16 00:00 104 09/27/16 00:00 70 09/26/16 22:00 107 09/26/16 20:55 100 60 09/26/16 20:00 105 09/26/16 20:00 70 09/26/16 20:00 99.6 105 19 100/58 100 I/O 09/26/16 09/26/16 09/26/16 09/27/16 09/27/16 09/27/16 07:00 15:00 23:00 07:00 15:00 23:00 Intake Total 119 ml 441 ml 366 ml 721 ml Balance 119 ml 441 ml 366 ml 721 ml Intake IV Total 119 ml 178 ml 127 ml 187 ml Tube Feeding 203 ml 199 ml 234 ml Other 60 ml 40 ml 300 ml # Voids 1 3 1 3 3 # Bowel Movements 1 0 0 Result Diagram: 09/27/16 0530 09/27/16 0530 Objective Remarks GENERAL: Thin built female, on trach tube SKIN: Warm and dry. HEAD: Normocephalic. EYES: No scleral icterus. No injection or drainage. NECK: Supple, trachea midline. No JVD or lymphadenopathy. Has trach CARDIOVASCULAR: Regular rate and rhythm without murmurs, gallops, or rubs. RESPIRATORY: Breath sounds equal bilaterally. No accessory muscle use. GASTROINTESTINAL: Abdomen soft, non-tender, nondistended. PEG tube MUSCULOSKELETAL: No cyanosis, or edema. BACK: Nontender without obvious deformity. No CVA tenderness. A/P Assessment and Plan Resp Failure S/P trach Anoxic encephalopathy cardiac arrest, hanging S/P PEG PLAN: Vent support, wean 02 Trach care Aerosol prn Abcx Ancef On Evgeny Lowe MD Sep 27, 2016 18:57
[2016-09-27] MEDS: DOCUSATE SODIUM 100 MG/10 ML UDC G-TUBE SCH ×2 (20:32)
[2016-09-27] MEDS: levETIRAcetam 500 MG/5 ML UDC NG SCH (20:32)
[2016-09-27] MEDS: ACETAMINOPHEN 650 MG/20.3 ML UDC G-TUBE PRN (23:24)
[2016-09-27] MEDS: LORazepam 2 MG/ML VIAL IV PRN (23:24)
[2016-09-28] VITALS (17 sets, daily range): BP systolic 96–140; BP diastolic 53–78; PULSE 101–117; RESP 17–26; TEMP 98.8–102.5; O2SAT 93–100
[2016-09-28] MEDS: clonazePAM 1 MG TAB G-TUBE SCH ×3 (02:55→18:34)
[2016-09-28] MEDS: RESP: ALBUTEROL 2.5 MG/IPRATROPIUM 0.5 MG NEB (SCH) NEB ×4 (03:52→20:53)
[2016-09-28] MEDS: RESP: SODIUM CHLORIDE 3% 4 ML NEB NEB SCH ×4 (03:52→20:53)
[2016-09-28] MEDS: CHLORHEXIDINE GLUCONATE 2 % 1 PACK (2 CLOTHS) TOP SCH (04:00)
[2016-09-28] MEDS: PROPRANOLOL HCL 20 MG TAB G-TUBE SCH ×3 (05:09→18:34)
[2016-09-28] MEDS: FONDAPARINUX SODIUM 7.5 MG/0.6 ML SYRINGE SQ SCH (05:09)
[2016-09-28] MEDS: METOCLOPRAMIDE HCL 10 MG/2 ML VIAL IV PUSH SCH ×3 (05:10→21:58)
[2016-09-28] MEDS: LORazepam 2 MG/ML VIAL IV PRN ×3 (05:47→16:20)
[2016-09-28 05:49] LABS: AUTOMATED NEUTROPHIL # 10.2 TH/MM3 (1.8-7.7); BASOPHIL # 0.1 TH/MM3 (0-0.2); BASOPHIL % 0.6 % (0.0-2.0); EOSINOPHIL # 0.3 TH/MM3 (0-0.4); EOSINOPHIL % 1.9 % (0.0-4.0); HEMATOCRIT 27.5 % (35.0-46.0); HEMO FLAGS DIFF FINAL; LYMPH % 9.9 % (9.0-44.0); LYMPHOCYTE # 1.3 TH/MM3 (1.0-4.8); MEAN CELL VOLUME 81.4 FL (80.0-100.0); MEAN CORPUSCULAR HEMOGLOBIN 27.5 PG (27.0-34.0); MEAN CORPUSCULAR HGB CONC 33.8 % (32.0-36.0); MONO % 12.2 % (0.0-8.0); NEUT % 75.4 % (16.0-70.0); PLATELET COUNT 449 TH/MM3 (150-450); RED BLOOD COUNT 3.38 MIL/MM3 (4.00-5.30); RED CELL DISTRIBUTION WIDTH 14.9 % (11.6-17.2); WHITE BLOOD COUNT 13.6 TH/MM3 (4.0-11.0)
[2016-09-28 06:16] LABS: BICARBONATE 26.6 MEQ/L (21.0-32.0); MAGNESIUM 2.2 MG/DL (1.5-2.5); POTASSIUM 3.6 MEQ/L (3.5-5.1)
[2016-09-28] MEDS: levETIRAcetam 500 MG/5 ML UDC NG SCH ×2 (08:35→20:46)
[2016-09-28] MEDS: SODIUM CHLORIDE 1 GRAM TAB G-TUBE SCH ×2 (08:35→16:21)
[2016-09-28] MEDS: LANSOPRAZOLE SOLUTAB 30 MG TAB NG SCH (08:35)
[2016-09-28] MEDS: DOCUSATE SODIUM 100 MG/10 ML UDC G-TUBE SCH ×3 (08:36→20:46)
[2016-09-28] MEDS: POTASSIUM CHLORIDE 25 MEQ EFFERVESCENT TAB G-TUBE SCH (08:36)
[2016-09-28] MEDS: ARTIFICIAL TEARS OPTH SOLN 15 ML BTL EACH EYE SCH ×2 (08:37→20:46)
[2016-09-28] MEDS: BISACODYL 10 MG SUPP RECTAL SCH (08:37)
[2016-09-28] MEDS: ACETAMINOPHEN 650 MG/20.3 ML UDC G-TUBE PRN ×2 (08:54→20:54)
[2016-09-28] MEDS ORDERED: INFO FOR PHARMACY/READ COMMENT ONE (09:00)
[2016-09-28] MEDS ORDERED: POTASSIUM CHLORIDE 20 MEQ PWD PACKET PO ONE (09:00)
--- NOTE | 2016-09-28 09:05 | HHI.CCPN ---
Subjective Remarks/Hospital Course 19 years old was brought in as a trauma alert. He has had to hanged herself and was found by her roommate. Unknown time of hanging. When fire department arrived patient was in asystole. CPR was started and one round of meds were given as per ACLS protocol. There was return of spontaneous circulation soon after that. Patient was brought in getting breaths by BV. She had a blood pressure and half way to arriving to the ER she started having some spontaneous respirations. She continued to be a GCS 3 when she arrived. She is admitted to critical care unit and therapeutic hypothermia protocol is initiated. 09/08/16: Patient achieving target temperature but developing severe shock. Levothroid had been increased to 30 mcg/m Mehdi-Synephrine added. Additional fluid boluses ordered currently on bicarbonate infusion additional one amp of bicarbonate given. Chest x-ray shows severe aspiration pneumonitis predominantly right lower lobe infiltrates. Zosyn 4.5 GM IV q8 started, give single dose of vanc 09/09/16: Patient is in the rewarming phase of hypothermia protocol. Once sedation was lightened and taken off the Nimbex, patient started developing tonic-clonic generalized seizure like activity. Bolused with a total of 6 mg Ativan in divided doses and restarted on Versed and propofol infusions. Loaded with Cerebyx 1 g and scheduled at 100 mg every 8 hours. Stat EEG pending. Neurology following 09/10/16: Remains on high dose of vasopressors, MRI brain shows evidence of anoxic brain injury. MRA neck bilateral common carotid narrowing. Start on aspirin get vascular surgery consult. No further seizure-like episodes noted. Pupils are equal bilaterally with slight withdrawal of right lower extremity to central pain. 09/11/16: Currently remains off all sedation in process. No noticeable improvement in neuro status, slight withdrawal x4. Aspirin started for bilateral common carotid narrowing-vascular surgery consult appreciated. Continue Cerebyx EEG sharp activity on eeg. MRI indicates diffuse anoxic brain injury with poor prognosis. EEG bihemispheric slowing and intermittent right central posterior sharp discharges which appear to be epileptiform. Dilantin level is therapeutic 09/12/16: Overnight had episodes myoclonus versus seizures. Neuro exam remains poor. No significant improvement. Low grade fever. Remains tachypneic on the ventilator. Restart propofol for vent synchrony 09/13/16: Neuro exam remains unchanged overnight. ICP monitor placed 09/12 for cerebral edema- ICP controlled with hyperosmolar therapy. 2 episodes of seizures vs myoclonus reported. Repeat EEG today. IVC filter placed 09/12/16 evening for large IVC thrombus. Unable to anticoagulate due to thrombocytopenia , cerebral edema-high risk of bleeding 09/14 EEG yesterday showed severe encephalopathy. ICP mainly 10-13 but intermittently spiked up to max of 22, improved with propofol bolus. Myoclonus noted with any tactile stimulation. 09/15 Comatose with myoclonus. ICP intermittently increased to 20, sometimes drifts down without intervention, sometimes improves with sedation. Extensor posturing. 09/16 Off continuous sedation. Comatose with myoclonus. Corneal reflex present on left, absent on right. ICP monitor removed today per NSG. 09/17: no significant neurologic improvement. off sedation. only intermittent ativan for myoclonus which improves symptoms. family meeting today, and family requests aggressive care, including trach/peg. 09/18: No change in neuro exam. Continued to spike high temperatures up to 102.5. CBC pending. I will discontinue Cerebyx start Keppra, check gallbladder ultrasound again and placed on empiric cefepime and single dose of vancomycin. Sputum culture Gram stain shows few GPC. On cooling blanket, and Tylenol. Motrin added. s/p Trach yesterday 09/19: no improvements or changes. sodium trending down. repeat sputum culture 09/17 growing staph aureus. KP pending. 09/20: No change in neuro exam. Overnight spike fever 103 again. Patient has bloody secretion from bilateral nares-she may have some acute sinusitis. Continue broad-spectrum antibiotics. Discontinue NG tube as the patient is getting PEG today 09/21: PEG yesterday. no changes. sputum again growing MSSA. 09/22: Colonization, no pneumonia. 09/23: No change in neuro status. 09/26: Halicat from floor after mucus plug. Back on vent. Sats marginal. 09/27: Remains on PRVC +8 ventilation. Resting in bed in no acute distress. Continues with generalized myoclonus. Withdraws right upper extremity only for me. RN stated left upper extremity. Gaze to right. Subjective: 09/28: PEEP decreased to 5. FiO2 decreased to 40%. Continues with generalized myoclonus. Vaguely withdrawals to noxious stimuli. Tmax 101.5. Tolerating tube feeds better. Objective Vital Signs Date Time Temp Pulse Resp B/P Pulse Ox O2 Delivery O2 Flow Rate FiO2 09/28/16 06:00 103 09/28/16 04:00 50 09/28/16 04:00 98.8 24 140/73 100 09/26/16 07:58 T-piece 6.00 Intake and Output 09/27/16 09/27/16 09/28/16 08:00 16:00 00:00 Intake Total 366 ml 721 ml 317 ml Balance 366 ml 721 ml 317 ml Result Diagram: 09/28/16 0440 09/28/16 0440 Other Results Microbiology Date/Time Procedure Status Source Growth 09/27/16 18:30 Gram Stain Received Sputum Endotracheal Pending 09/27/16 18:30 Sputum Culture Received Sputum Endotracheal Pending Imaging Last Impressions Chest X-Ray 09/26/16 0000 Signed Impressions: Service Date/Time: Monday, September 26, 2016 10:39 - CONCLUSION: Stable appearance with mild infrahilar opacity again noted. Seth Breen MD Liver Ultrasound 09/18/16 0000 Signed Impressions: Service Date/Time: Sunday, September 18, 2016 09:27 - CONCLUSION: 1. There is sludge within the gallbladder. No other findings are present to indicate acute cholecystitis. 2. Mild splenomegaly. 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 This is nonocclusive. A retrievable IVC filter was deployed below the main hepatic veins but it was necessary to cross an accessory right hepatic vein. Jose Armando Jackson Jr., MD Head CT 09/12/16 0000 Signed Impressions: Service Date/Time: Monday, September 12, 2016 09:29 - CONCLUSION: Mild loss of lemos matter definition that can be seen with increasing intracranial pressure. Ricki Cavazos MD FACR Neck Magnetic Resonance Angiography 09/09/16 0000 Signed Impressions: Service Date/Time: August 16:02 - CONCLUSION: 1. Moderate to severe smooth narrowing of the left common carotid artery and also moderate narrowing of the proximal right common carotid artery as well as narrowing of both proximal vertebral arteries likely related to recent hanging. Etiology could be related to vasospasm or recent extrinsic prolonged compression. The distal internal carotid arteries and vertebral artery have more normal calibers. Findings called to Dr. Bhatt at the time of dictation. Gideon Brown MD Cervical Spine MRI 09/09/16 0000 Signed Impressions: Service Date/Time: August 16:02 - CONCLUSION: 1. Very minimal degenerative disc disease at C5-6. 2. No acute fracture or prevertebral soft tissue swelling. 3. No focal cervical cord abnormality. Tray Santiago MD Brain MRI 09/09/16 0000 Signed Impressions: Service Date/Time: , September 09, 2016 16:02 - CONCLUSION: 1. Diffuse FLAIR-weighted hyperintensities involving the caudate nuclei bilaterally, bilateral hummel radiata, as well as the bilateral parietal and occipital cortex consistent with the patient's clinical diagnosis of anoxic encephalopathy. 2. No acute hemorrhage, midline shift, extra-axial fluid collection or abnormal enhancement. 3. Small fluid level within the right sphenoid sinus. Tray Santiago MD Cervical Spine CT 09/07/16 1800 Signed Impressions: Service Date/Time: Wednesday, September 07, 2016 18:06 - CONCLUSION: 1. No fracture or subluxation. 2. Scattered groundglass nodules throughout the upper lobes, nonspecific but can be seen with hypersensitivity pneumonitis. Artem Madera MD Objective Remarks GENERAL: 20-year-old female, resting in bed SKIN: Warm and dry. HEAD: Normocephalic. Pupils are 4 mm bilaterally. Right gaze.. EYES: No scleral icterus. No injection or drainage. NECK: trachea midline. trach site clean, dry. CARDIOVASCULAR: The cardiac, RRR. S1, S2 no S4. Without murmur. RESPIRATORY: unlabored. equal chest rise. clear, no wheezes or crackles. GASTROINTESTINAL: Abdomen soft, non-tender, distended. G-tube is clean dry and intact MUSCULOSKELETAL: Trace to 1+ generalized upper and lower extremity NEURO: Now off sedation. Pupils are 4 mm. No cough or gag. Disconjugate right gaze. General myoclonic movements on stimulation. To deep central and peripheral noxious stimuli patient showing extensor posturing. Withdraws right upper extremity. A/P Assessment and Plan NEURO/PSYCH: Severe anoxic brain injury Left and right common carotid narrowing Attempted suicide by hanging Seizure Depression - MRI shows evidence of diffuse anoxic brain injury including weighted hyperintensity bilateral caudate, bilateral CR, bilateral occipital and parietal lobes.. MRA neck bilateral common carotid narrowing-vascular surgery consulted, no intervention. started aspirin 09/10 - CT 09/12-loss salguero/white matter differentiation c/w cerebral edema. ICP monitor placed 09/12 , removed 09/16. - EEG 09/10 bilateral sharp activity, on Dilantin. Level therapeutic 09/12. DC Dilantin 09/18/16 due high fever, started Keppra - EEG 09/11 Encephalopathy, no sz. - EEG 09/13severe encephalopathy. (delta waves) - s/p induced hypothermia. - Neurology Dr. Wong following. He states prognosis is poor and recommended comfort measures. - NSG Dr. José states poor prognosis, recommends comfort care. - Toxicology negative - Clonazepam 1 mg by PEG every 8 hours scheduled for clonus - Ativan 1 mg IV every hours for symptomatic control for severe myoclonus. - Oxycodone 5mg every 6 hours scheduled for pain. Fentanyl prn CV: Status postcardiac arrest Hemodynamic stable - Currently not requiring vasopressors and/or anti-hypertensives. Resp: Vent dependent hypoxemic respiratory failure Pre-hospital Aspiration pneumonitis Mucous plugging - [facility], 16/02/18/39 ventilator bundle. Albuterol/Atrovent aerosols every 6 hours and albuterol aerosols when necessary At hypertonic saline for mucolytic 5 days - Daily SBTs as clinically indicated s/p trach 09/17/16. Vijay Jackson and Kunal GI/FEN: Transaminitis most likely from shock, resolved. Hyponatremia - Tube feedings Jevity 1.5 at 50 L per hour per nutrition recommendations. - s/p PEG 09/20 - repeat GB u/s without signs of cholecystitis 09/18 - Continue salt tabs 1gm po q8hr. - Liver ultrasound 09/12large nonocclusive thrombus and IVC. Renal/: Fluid overload- persistent. -Monitor BUN/creatinine daily. - In accurate I's nose due to lack Benjamin. ID: Pyrexia Sputum with MSSA 09/08. - Zosyn 4.5 g IV every 6 hours 09/08-09/15 .fever may be secondary to DVT. Off vancomycin. - Fever up to 103 GPC on sputum MSSA. Vancomycin 1 g IV 1. - sputum culture 09/17 staph aureus. de-escalate to Ancef 2gm iv q8h, total 10 day course of abx for recurrent MSSA pna. Recheck sputum culture today 09/27 As needed acetaminophen Endo: - Sliding-scale insulin if needed HEME: Leukocytosis Thrombocytosis Normocytic anemia Large IVC thrombus - Monitor CBC CMP coags. - IVC filter placed 09/12 due to inability to anticoagulate (thrombocytopenia) and cerebral edema. - Now platelets improved, on fondaparinux 7.5 mg daily from 09/18/16. 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 KP negative. Start VKA today. DVT GI prophylaxis - IVC filter in place. Continue lansoprazole.fondaparinux 7.5 mg daily started 09/18/16 Lines: - PIV Level III follow-up Reynaldo Johnson MD Sep 28, 2016 09:04
[2016-09-28 12:10] LABS: INTERNATIONAL NORMALIZED RATIO 1.2 RATIO; PROTHROMBIN TIME - PATIENT 13.1 SEC (9.8-11.6)
--- NOTE | 2016-09-28 12:17 | HHI.PR ---
Neuropsych Emotional Emotional: UnabletoAssess: Emotional, Anxious/Fearful, Depressed/Sad, Hostile/ Resentful, Irritable/Angry/Frustrate, Labile, Constricted/Blunted Behavior Behavior: Unable to Asses: Behavior, Coping/Acceptance, Cooperative w/ Treatment, Motivation, Frustration Tolerance/Agra, Impulsive/Agitated, Suicidal/ Homicidal Risk Cognitive Cognitive: Unable to Asses: Cognitive, Attention/Concentration, Confused/ Orientation, Insight/Awareness, Judgement/Problem-Solving, Memory Psychosocial Psychosocial: Severe: Psychosocial, Family/Other Adjustment, Realistic Expectation, Unable to Asses: Self-Esteem/Confidence Progress Notes/Response to Tx Contents of Sessions: Adjustment, Level of Consciousness Time with Patient: 30 minutes Premorbid psychological status Premorbid Cognitive, Emotional and Behavioral Status: Tenuous. The patient graduated high school and was planning to attend college, no work history, and noted long psychiatric history. Substance abuse history is unknown. Behavioral Reactions of Patient and Family/Support System: Unstable. The patients family is experiencing ongoing issues of adjustment given the nature of the injury, and this aspect of recovery will require ongoing monitoring. Specifically, the family's realistic expectations concerning recovery was inconsistent with the realities of the medical situation. Emotional/Behavioral Status of Patient and Family/Support System: Tenuous. Pertinent issues, if appropriate to this patients clinical care, are described in detail above. Maximizing acute care outcome Comfort care is recommended as this patient has no chance for a meaningful recovery from a neurocognitive and neurobehavioral standpoint. Anticipated Problems Specific issues are related to family adjustment and realistic expectations, which I am activity involved. Treatment Plan To provide further care in concert with the critical care team, provide specific information on an ongoing basis about the limitations of recovery given the severity of her neurological illness and to provide psychosocial support. [facility] Level: I:No response-total assistance Impression This patient suffered a severe anoxic brain injury and has demonstrated no neurobehavioral improvement. It is my clinical opinion that this patient has no chance for a meaningful recovery from this injury. 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 This is day 21 post injury. I was able to discuss psychosocial issues with boyfriend, who was bedside. There has been no neurobehavioral changes in this patient, and she remains a [place]. I will continue to follow. Jose Rafael Manuel PhD Sep 28, 2016 12:17 pm
--- NOTE | 2016-09-28 13:18 | HHI.NSPN ---
Note Status Status: Progress Note Interval History Diagnosis anoxic encephalopathy Interval History The patient has a 20-year-old female brought in as a Trauma Alert. She was found hanging from a pull-up bar. She was in asystole at the scene, treated with epinephrine and regained a pressure after that. Initially she was unresponsive. GCS was 3. The patient has been unresponsive. There has been no seizure activity at present. 09/13. No clinical improvement. Comatose. Myoclonic jerks 09/14 has not shown any clinical improvement 09/15. Remains intubated and comatose without improvement 09/17. no significant neurologic improvement. off sedation. only intermittent ativan for myoclonus 09/18. No change in neuro exam. Continued to spike high temperatures up to 102.5. Will discontinue Cerebyx start Keppra. Obtain gallbladder ultrasound. Start empiric cefepime and vancomycin. S/p Trach yesterday 09/19. No neuro changes. no improvements or changes. sodium trending down. repeat sputum culture 09/17 growing staph aureus 09/20. Overnight fevers to 103 again. No neurological improvement. She has bloody secretion from bilateral nares, suspected acute sinusitis. Continue broad- spectrum antibiotics. She is getting a PEG today 09/21. Status post PEG yesterday. no changes. sputum again growing MSSA. 09/22 Ventilated. No changes. PEG functional 09/23. No clinical improvement. Discharge planning in progress 09/24. Remains ventilator dependent without improvement 09/27 Halicat from floor after mucus plug yesterday. Back on vent.on PRVC +8 ventilation. Continues with generalized myoclonus. 09/28. Ventilated. FiO2 decreased to 40%. Continues with generalized myoclonus. Minimal withdrawal to noxious stimuli. Tolerating tube feedings. Labs, Micro, & Vital Signs Results Date Time Temp Pulse Resp B/P Pulse Ox O2 Delivery O2 Flow Rate FiO2 09/28/16 09:07 100 40 09/28/16 09:07 100 Ventilator 50 09/28/16 06:00 103 09/28/16 04:00 50 09/28/16 04:00 103 09/28/16 04:00 98.8 103 24 140/73 100 09/28/16 03:54 100 50 09/28/16 00:00 101 09/28/16 00:00 50 09/28/16 00:00 101.5 101 21 96/53 99 09/27/16 23:50 99 50 09/27/16 22:00 106 09/27/16 21:14 100 50 09/27/16 20:00 50 09/27/16 20:00 101 09/27/16 20:00 99.5 101 20 126/68 100 09/27/16 18:00 97 09/27/16 17:45 98 50 09/27/16 16:00 98.1 103 17 94/51 99 09/27/16 16:00 50 09/27/16 16:00 104 09/27/16 14:00 98 09/28/16 06:59 Intake Total 1493 ml Balance 1493 ml Constitutional Vital Signs Date Time Temp Pulse Resp B/P Pulse Ox O2 Delivery O2 Flow Rate FiO2 09/28/16 09:07 100 40 09/28/16 09:07 100 Ventilator 50 09/28/16 06:00 103 09/28/16 04:00 50 09/28/16 04:00 103 09/28/16 04:00 98.8 103 24 140/73 100 09/28/16 03:54 100 50 09/28/16 00:00 101 09/28/16 00:00 50 09/28/16 00:00 101.5 101 21 96/53 99 09/27/16 23:50 99 50 09/27/16 22:00 106 09/27/16 21:14 100 50 09/27/16 20:00 50 09/27/16 20:00 101 09/27/16 20:00 99.5 101 20 126/68 100 09/27/16 18:00 97 09/27/16 17:45 98 50 09/27/16 16:00 98.1 103 17 94/51 99 09/27/16 16:00 50 09/27/16 16:00 104 09/27/16 14:00 98 09/28/16 06:59 Intake Total 1493 ml Balance 1493 ml Review of Systems/Exam Exam She is intubated and sedated. No response to pain. General myoclonic movements on stimulation. Minimal withdrawal to noxious stimuli. Cranial Nerves: Pupils 2mm, non-reactive to light. Pupils are 4 mm reactive to 3 mm bilaterally. Slight corneal reflex present on the left, absent on the right. No cough or gag. Disconjugate gaze. No spontaneous eye opening. Face musculature appeared symmetrical at rest. Face sensation, olfaction, visual phillips, and hearing cannot be adequately assessed due to his neurological condition. The patient has a corneal reflex. SHe has no gag reflex. The sternocleidomastoid and trapezius are symmetrical. Cervical Spine: Her neck is soft, supple, without nuchal rigidity. Motor: Minimal withdrawal to noxious stimuli. Reflexes: Deep tendon reflexes are trace in the biceps, triceps, and brachioradialis, bilaterally, in the upper extremities. In the lower extremities, the patellar and ankles TRACE. There is a bilateral silent response to plantar stim. There is no clonus Sensory: On examination there is Minimal withdraw to painful stimuli Cerebellar: Examination cannot be adequately assessed due to the patient's neurological condition. Medical Decision Making MDM Remarks Last Impressions Chest X-Ray 09/26/16 0000 Signed Impressions: Service Date/Time: Monday, September 26, 2016 10:39 - CONCLUSION: Stable appearance with mild infrahilar opacity again noted. Seth Breen MD Liver Ultrasound 09/18/16 0000 Signed Impressions: Service Date/Time: Sunday, September 18, 2016 09:27 - CONCLUSION: 1. There is sludge within the gallbladder. No other findings are present to indicate acute cholecystitis. 2. Mild splenomegaly. 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 This is nonocclusive. A retrievable IVC filter was deployed below the main hepatic veins but it was necessary to cross an accessory right hepatic vein. Jose Armando Jackson Jr., MD Head CT 09/12/16 0000 Signed Impressions: Service Date/Time: Monday, September 12, 2016 09:29 - CONCLUSION: Mild loss of lemos matter definition that can be seen with increasing intracranial pressure. Ricki Cavazos MD FACR Neck Magnetic Resonance Angiography 09/09/16 Signed Impressions: Service Date/Time: August 16:02 - CONCLUSION: 1. Moderate to severe smooth narrowing of the left common carotid artery and also moderate narrowing of the proximal right common carotid artery as well as narrowing of both proximal vertebral arteries likely related to recent hanging. Etiology could be related to vasospasm or recent extrinsic prolonged compression. The distal internal carotid arteries and vertebral artery have more normal calibers. Findings called to Dr. Bhatt at the time of dictation. Gideon Brown MD Cervical Spine MRI 09/09/16 0000 Signed Impressions: Service Date/Time: August 16:02 - CONCLUSION: 1. Very minimal degenerative disc disease at C5-6. 2. No acute fracture or prevertebral soft tissue swelling. 3. No focal cervical cord abnormality. Tray Santiago MD Brain MRI 09/09/16 Signed Impressions: Service Date/Time: August 16:02 - CONCLUSION: 1. Diffuse FLAIR-weighted hyperintensities involving the caudate nuclei bilaterally, bilateral hummel radiata, as well as the bilateral parietal and occipital cortex consistent with the patient's clinical diagnosis of anoxic encephalopathy. 2. No acute hemorrhage, midline shift, extra-axial fluid collection or abnormal enhancement. 3. Small fluid level within the right sphenoid sinus. Tray Santiago MD Cervical Spine CT 09/07/16 1800 Signed Impressions: Service Date/Time: Wednesday, September 07, 2016 18:06 - CONCLUSION: 1. No fracture or subluxation. 2. Scattered groundglass nodules throughout the upper lobes, nonspecific but can be seen with hypersensitivity pneumonitis. Artem Madera MD Last Impressions Liver Ultrasound 09/18/16 Signed Impressions: Service Date/Time: Sunday, September 18, 2016 09:27 - CONCLUSION: 1. There is sludge within the gallbladder. No other findings are present to indicate acute cholecystitis. 2. Mild splenomegaly. Miller Lee MD Chest X-Ray 09/18/16 Signed Impressions: Service Date/Time: Sunday, September 18, 2016 05:01 - CONCLUSION: 1. Right perihilar edema versus pneumonia. There has been no significant change when compared to the prior exam. 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 This is nonocclusive. A retrievable IVC filter was deployed below the main hepatic veins but it was necessary to cross an accessory right hepatic vein. Jose Armando Jackson Jr., MD Head CT 09/12/16 0000 Signed Impressions: Service Date/Time: Monday, September 12, 2016 09:29 - CONCLUSION: Mild loss of lemos matter definition that can be seen with increasing intracranial pressure. Ricki Cavazos MD FACR Neck Magnetic Resonance Angiography 09/09/16 0000 Signed Impressions: Service Date/Time: August 16:02 - CONCLUSION: 1. Moderate to severe smooth narrowing of the left common carotid artery and also moderate narrowing of the proximal right common carotid artery as well as narrowing of both proximal vertebral arteries likely related to recent hanging. Etiology could be related to vasospasm or recent extrinsic prolonged compression. The distal internal carotid arteries and vertebral artery have more normal calibers. Findings called to Dr. Bhatt at the time of dictation. Gideon Brown MD Cervical Spine MRI 09/09/16 0000 Signed Impressions: Service Date/Time: August 16:02 - CONCLUSION: 1. Very minimal degenerative disc disease at C5-6. 2. No acute fracture or prevertebral soft tissue swelling. 3. No focal cervical cord abnormality. Tray Santiago MD Brain MRI 09/09/16 0000 Signed Impressions: Service Date/Time: August 16:02 - CONCLUSION: 1. Diffuse FLAIR-weighted hyperintensities involving the caudate nuclei bilaterally, bilateral hummel radiata, as well as the bilateral parietal and occipital cortex consistent with the patient's clinical diagnosis of anoxic encephalopathy. 2. No acute hemorrhage, midline shift, extra-axial fluid collection or abnormal enhancement. 3. Small fluid level within the right sphenoid sinus. Tray Santiago MD Cervical Spine CT 09/07/16 1800 Signed Impressions: Service Date/Time: Wednesday, September 07, 2016 18:06 - CONCLUSION: 1. No fracture or subluxation. 2. Scattered groundglass nodules throughout the upper lobes, nonspecific but can be seen with hypersensitivity pneumonitis. Artem Madera MD Last Impressions Liver Ultrasound 09/18/16 Signed Impressions: Service Date/Time: Sunday, September 18, 2016 09:27 - CONCLUSION: 1. There is sludge within the gallbladder. No other findings are present to indicate acute cholecystitis. 2. Mild splenomegaly. Miller Lee MD Chest X-Ray 09/18/16 Signed Impressions: Service Date/Time: Sunday, September 18, 2016 05:01 - CONCLUSION: 1. Right perihilar edema versus pneumonia. There has been no significant change when compared to the prior exam. 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 This is nonocclusive. A retrievable IVC filter was deployed below the main hepatic veins but it was necessary to cross an accessory right hepatic vein. Jose Armando Jackson Jr., MD Head CT 09/12/16 Signed Impressions: Service Date/Time: Monday, September 12, 2016 09:29 - CONCLUSION: Mild loss of lemos matter definition that can be seen with increasing intracranial pressure. Ricki Cavazos MD FACR Neck Magnetic Resonance Angiography 09/09/16 Signed Impressions: Service Date/Time: August 16:02 - CONCLUSION: 1. Moderate to severe smooth narrowing of the left common carotid artery and also moderate narrowing of the proximal right common carotid artery as well as narrowing of both proximal vertebral arteries likely related to recent hanging. Etiology could be related to vasospasm or recent extrinsic prolonged compression. The distal internal carotid arteries and vertebral artery have more normal calibers. Findings called to Dr. Bhatt at the time of dictation. Gideon Brown MD Cervical Spine MRI 09/09/16 Signed Impressions: Service Date/Time: August 16:02 - CONCLUSION: 1. Very minimal degenerative disc disease at C5-6. 2. No acute fracture or prevertebral soft tissue swelling. 3. No focal cervical cord abnormality. Tray Santiago MD Brain MRI 09/09/16 Signed Impressions: Service Date/Time: August 16:02 - CONCLUSION: 1. Diffuse FLAIR-weighted hyperintensities involving the caudate nuclei bilaterally, bilateral hummel radiata, as well as the bilateral parietal and occipital cortex consistent with the patient's clinical diagnosis of anoxic encephalopathy. 2. No acute hemorrhage, midline shift, extra-axial fluid collection or abnormal enhancement. 3. Small fluid level within the right sphenoid sinus. Tray Santiago MD Cervical Spine CT 09/07/16 1800 Signed Impressions: Service Date/Time: Wednesday, September 07, 2016 18:06 - CONCLUSION: 1. No fracture or subluxation. 2. Scattered groundglass nodules throughout the upper lobes, nonspecific but can be seen with hypersensitivity pneumonitis. Artem Madera MD Last Impressions Liver Ultrasound 09/18/16 0000 Signed Impressions: Service Date/Time: Sunday, September 18, 2016 09:27 - CONCLUSION: 1. There is sludge within the gallbladder. No other findings are present to indicate acute cholecystitis. 2. Mild splenomegaly. Miller Lee MD Chest X-Ray 09/18/16 0000 Signed Impressions: Service Date/Time: Sunday, September 18, 2016 05:01 - CONCLUSION: 1. Right perihilar edema versus pneumonia. There has been no significant change when compared to the prior exam. 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 This is nonocclusive. A retrievable IVC filter was deployed below the main hepatic veins but it was necessary to cross an accessory right hepatic vein. Jose Armando Jackson Jr., MD Head CT 09/12/16 0000 Signed Impressions: Service Date/Time: Monday, September 12, 2016 09:29 - CONCLUSION: Mild loss of lemos matter definition that can be seen with increasing intracranial pressure. Ricki Cavazos MD FACR Neck Magnetic Resonance Angiography 09/09/16 0000 Signed Impressions: Service Date/Time: August 16:02 - CONCLUSION: 1. Moderate to severe smooth narrowing of the left common carotid artery and also moderate narrowing of the proximal right common carotid artery as well as narrowing of both proximal vertebral arteries likely related to recent hanging. Etiology could be related to vasospasm or recent extrinsic prolonged compression. The distal internal carotid arteries and vertebral artery have more normal calibers. Findings called to Dr. Bhtat at the time of dictation. Gideon Brown MD Cervical Spine MRI 09/09/16 0000 Signed Impressions: Service Date/Time: August 16:02 - CONCLUSION: 1. Very minimal degenerative disc disease at C5-6. 2. No acute fracture or prevertebral soft tissue swelling. 3. No focal cervical cord abnormality. Tray Santiago MD Brain MRI 09/09/16 0000 Signed Impressions: Service Date/Time: August 16:02 - CONCLUSION: 1. Diffuse FLAIR-weighted hyperintensities involving the caudate nuclei bilaterally, bilateral hummel radiata, as well as the bilateral parietal and occipital cortex consistent with the patient's clinical diagnosis of anoxic encephalopathy. 2. No acute hemorrhage, midline shift, extra-axial fluid collection or abnormal enhancement. 3. Small fluid level within the right sphenoid sinus. Tray Santiago MD Cervical Spine CT 09/07/16 1800 Signed Impressions: Service Date/Time: Wednesday, September 07, 2016 18:06 - CONCLUSION: 1. No fracture or subluxation. 2. Scattered groundglass nodules throughout the upper lobes, nonspecific but can be seen with hypersensitivity pneumonitis. Artem Madera MD Last Impressions Liver Ultrasound 09/18/16 0000 Signed Impressions: Service Date/Time: Sunday, September 18, 2016 09:27 - CONCLUSION: 1. There is sludge within the gallbladder. No other findings are present to indicate acute cholecystitis. 2. Mild splenomegaly. Miller Lee MD Chest X-Ray 09/18/16 0000 Signed Impressions: Service Date/Time: Sunday, September 18, 2016 05:01 - CONCLUSION: 1. Right perihilar edema versus pneumonia. There has been no significant change when compared to the prior exam. 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 This is nonocclusive. A retrievable IVC filter was deployed below the main hepatic veins but it was necessary to cross an accessory right hepatic vein. Jose Armando Jackson Jr., MD Head CT 09/12/16 0000 Signed Impressions: Service Date/Time: Monday, September 12, 2016 09:29 - CONCLUSION: Mild loss of lemos matter definition that can be seen with increasing intracranial pressure. Ricki Cavazos MD FACR Neck Magnetic Resonance Angiography 09/09/16 0000 Signed Impressions: Service Date/Time: August 16:02 - CONCLUSION: 1. Moderate to severe smooth narrowing of the left common carotid artery and also moderate narrowing of the proximal right common carotid artery as well as narrowing of both proximal vertebral arteries likely related to recent hanging. Etiology could be related to vasospasm or recent extrinsic prolonged compression. The distal internal carotid arteries and vertebral artery have more normal calibers. Findings called to Dr. Bhatt at the time of dictation. Gideon Brown MD Cervical Spine MRI 09/09/16 0000 Signed Impressions: Service Date/Time: August 16:02 - CONCLUSION: 1. Very minimal degenerative disc disease at C5-6. 2. No acute fracture or prevertebral soft tissue swelling. 3. No focal cervical cord abnormality. Tray Santiago MD Brain MRI 09/09/16 0000 Signed Impressions: Service Date/Time: August 16:02 - CONCLUSION: 1. Diffuse FLAIR-weighted hyperintensities involving the caudate nuclei bilaterally, bilateral hummel radiata, as well as the bilateral parietal and occipital cortex consistent with the patient's clinical diagnosis of anoxic encephalopathy. 2. No acute hemorrhage, midline shift, extra-axial fluid collection or abnormal enhancement. 3. Small fluid level within the right sphenoid sinus. Tray Santiago MD Cervical Spine CT 09/07/16 1800 Signed Impressions: Service Date/Time: Wednesday, September 07, 2016 18:06 - CONCLUSION: 1. No fracture or subluxation. 2. Scattered groundglass nodules throughout the upper lobes, nonspecific but can be seen with hypersensitivity pneumonitis. Artem Madera MD Last Impressions Liver Ultrasound 09/18/16 0000 Signed Impressions: Service Date/Time: Tuesday, September 18, 2016 09:27 - CONCLUSION: 1. There is sludge within the gallbladder. No other findings are present to indicate acute cholecystitis. 2. Mild splenomegaly. Miller Lee MD Chest X-Ray 09/18/16 Signed Impressions: Service Date/Time: Sunday, September 18, 2016 05:01 - CONCLUSION: 1. Right perihilar edema versus pneumonia. There has been no significant change when compared to the prior exam. 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 This is nonocclusive. A retrievable IVC filter was deployed below the main hepatic veins but it was necessary to cross an accessory right hepatic vein. Jose Armando Jackson Jr., MD Head CT 09/12/16 Signed Impressions: Service Date/Time: Monday, September 12, 2016 09:29 - CONCLUSION: Mild loss of lemos matter definition that can be seen with increasing intracranial pressure. Ricki Cavazos MD FACR Neck Magnetic Resonance Angiography 09/09/16 Signed Impressions: Service Date/Time: August 16:02 - CONCLUSION: 1. Moderate to severe smooth narrowing of the left common carotid artery and also moderate narrowing of the proximal right common carotid artery as well as narrowing of both proximal vertebral arteries likely related to recent hanging. Etiology could be related to vasospasm or recent extrinsic prolonged compression. The distal internal carotid arteries and vertebral artery have more normal calibers. Findings called to Dr. Bhatt at the time of dictation. Gideon Brown MD Cervical Spine MRI 09/09/16 Signed Impressions: Service Date/Time: August 16:02 - CONCLUSION: 1. Very minimal degenerative disc disease at C5-6. 2. No acute fracture or prevertebral soft tissue swelling. 3. No focal cervical cord abnormality. Tray Santiago MD Brain MRI 09/09/16 Signed Impressions: Service Date/Time: August 16:02 - CONCLUSION: 1. Diffuse FLAIR-weighted hyperintensities involving the caudate nuclei bilaterally, bilateral hummel radiata, as well as the bilateral parietal and occipital cortex consistent with the patient's clinical diagnosis of anoxic encephalopathy. 2. No acute hemorrhage, midline shift, extra-axial fluid collection or abnormal enhancement. 3. Small fluid level within the right sphenoid sinus. Tray Santiago MD Cervical Spine CT 09/07/16 1800 Signed Impressions: Service Date/Time: Wednesday, September 07, 2016 18:06 - CONCLUSION: 1. No fracture or subluxation. 2. Scattered groundglass nodules throughout the upper lobes, nonspecific but can be seen with hypersensitivity pneumonitis. Artem Madera MD Last Impressions Liver Ultrasound 09/12/16 0000 Signed Impressions: Service Date/Time: Monday, September 12, 2016 16:15 - CONCLUSION: 1. 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 2. Pericholecystic fluid and gallbladder wall thickening raising the possibility of cholecystitis. A hepatobiliary scan may be helpful to confirm cystic duct obstruction if clinically indicated. 3. Gallbladder sludge. 4. Ascites. 5. Bilateral pleural effusions. 6. Mild hepatomegaly. 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 This is nonocclusive. A retrievable IVC filter was deployed below the main hepatic veins but it was necessary to cross an accessory right hepatic vein. Jose Armando Jackson Jr., MD Head CT 09/12/16 0000 Signed Impressions: Service Date/Time: Monday, September 12, 2016 09:29 - CONCLUSION: Mild loss of lemos matter definition that can be seen with increasing intracranial pressure. Ricki Cavazos MD FACR Neck Magnetic Resonance Angiography 09/09/16 0000 Signed Impressions: Service Date/Time: August 16:02 - CONCLUSION: 1. Moderate to severe smooth narrowing of the left common carotid artery and also moderate narrowing of the proximal right common carotid artery as well as narrowing of both proximal vertebral arteries likely related to recent hanging. Etiology could be related to vasospasm or recent extrinsic prolonged compression. The distal internal carotid arteries and vertebral artery have more normal calibers. Findings called to Dr. Bhatt at the time of dictation. Gideon Brown MD Cervical Spine MRI 09/09/16 0000 Signed Impressions: Service Date/Time: August 16:02 - CONCLUSION: 1. Very minimal degenerative disc disease at C5-6. 2. No acute fracture or prevertebral soft tissue swelling. 3. No focal cervical cord abnormality. Tray Santiago MD Brain MRI 09/09/16 0000 Signed Impressions: Service Date/Time: August 16:02 - CONCLUSION: 1. Diffuse FLAIR-weighted hyperintensities involving the caudate nuclei bilaterally, bilateral hummel radiata, as well as the bilateral parietal and occipital cortex consistent with the patient's clinical diagnosis of anoxic encephalopathy. 2. No acute hemorrhage, midline shift, extra-axial fluid collection or abnormal enhancement. 3. Small fluid level within the right sphenoid sinus. Tray Santiago MD Cervical Spine CT 09/07/16 1800 Signed Impressions: Service Date/Time: Wednesday, September 07, 2016 18:06 - CONCLUSION: 1. No fracture or subluxation. 2. Scattered groundglass nodules throughout the upper lobes, nonspecific but can be seen with hypersensitivity pneumonitis. Artem Madera MD Last Impressions Chest X-Ray 09/13/16 0600 Signed Impressions: Service Date/Time: Tuesday, September 13, 2016 04:49 - CONCLUSION: 1. Hazy opacity in both lungs without significant change. This may represent pulmonary edema which may be noncardiogenic. 2. Artifact projected over the right suprahilar region limiting visualization. Seth Breen MD Liver Ultrasound 09/12/16 0000 Signed Impressions: Service Date/Time: Monday, September 12, 2016 16:15 - CONCLUSION: 1. 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 2. Pericholecystic fluid and gallbladder wall thickening raising the possibility of cholecystitis. A hepatobiliary scan may be helpful to confirm cystic duct obstruction if clinically indicated. 3. Gallbladder sludge. 4. Ascites. 5. Bilateral pleural effusions. 6. Mild hepatomegaly. 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 This is nonocclusive. A retrievable IVC filter was deployed below the main hepatic veins but it was necessary to cross an accessory right hepatic vein. Jose Armando Jackson Jr., MD Head CT 09/12/16 0000 Signed Impressions: Service Date/Time: Monday, September 12, 2016 09:29 - CONCLUSION: Mild loss of lemos matter definition that can be seen with increasing intracranial pressure. Ricki Cavazos MD FACR Neck Magnetic Resonance Angiography 09/09/16 0000 Signed Impressions: Service Date/Time: August 16:02 - CONCLUSION: 1. Moderate to severe smooth narrowing of the left common carotid artery and also moderate narrowing of the proximal right common carotid artery as well as narrowing of both proximal vertebral arteries likely related to recent hanging. Etiology could be related to vasospasm or recent extrinsic prolonged compression. The distal internal carotid arteries and vertebral artery have more normal calibers. Findings called to Dr. Bhatt at the time of dictation. Gideon Brown MD Cervical Spine MRI 09/09/16 0000 Signed Impressions: Service Date/Time: August 16:02 - CONCLUSION: 1. Very minimal degenerative disc disease at C5-6. 2. No acute fracture or prevertebral soft tissue swelling. 3. No focal cervical cord abnormality. Tray Santiago MD Brain MRI 09/09/16 0000 Signed Impressions: Service Date/Time: August 16:02 - CONCLUSION: 1. Diffuse FLAIR-weighted hyperintensities involving the caudate nuclei bilaterally, bilateral hummel radiata, as well as the bilateral parietal and occipital cortex consistent with the patient's clinical diagnosis of anoxic encephalopathy. 2. No acute hemorrhage, midline shift, extra-axial fluid collection or abnormal enhancement. 3. Small fluid level within the right sphenoid sinus. Tray Santiago MD Cervical Spine CT 09/07/16 1800 Signed Impressions: Service Date/Time: Wednesday, September 07, 2016 18:06 - CONCLUSION: 1. No fracture or subluxation. 2. Scattered groundglass nodules throughout the upper lobes, nonspecific but can be seen with hypersensitivity pneumonitis. Artem Madera MD Last Impressions Chest X-Ray 09/13/16 0600 Signed Impressions: Service Date/Time: Tuesday, September 13, 2016 04:49 - CONCLUSION: 1. Hazy opacity in both lungs without significant change. This may represent pulmonary edema which may be noncardiogenic. 2. Artifact projected over the right suprahilar region limiting visualization. Seth Breen MD Liver Ultrasound 09/12/16 Signed Impressions: Service Date/Time: Monday, September 12, 2016 16:15 - CONCLUSION: 1. 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 2. Pericholecystic fluid and gallbladder wall thickening raising the possibility of cholecystitis. A hepatobiliary scan may be helpful to confirm cystic duct obstruction if clinically indicated. 3. Gallbladder sludge. 4. Ascites. 5. Bilateral pleural effusions. 6. Mild hepatomegaly. 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 This is nonocclusive. A retrievable IVC filter was deployed below the main hepatic veins but it was necessary to cross an accessory right hepatic vein. Jose Armando Jackson Jr., MD Head CT 09/12/16 Signed Impressions: Service Date/Time: Monday, September 12, 2016 09:29 - CONCLUSION: Mild loss of lemos matter definition that can be seen with increasing intracranial pressure. Ricki Cavazos MD FACR Neck Magnetic Resonance Angiography 09/09/16 Signed Impressions: Service Date/Time: August 16:02 - CONCLUSION: 1. Moderate to severe smooth narrowing of the left common carotid artery and also moderate narrowing of the proximal right common carotid artery as well as narrowing of both proximal vertebral arteries likely related to recent hanging. Etiology could be related to vasospasm or recent extrinsic prolonged compression. The distal internal carotid arteries and vertebral artery have more normal calibers. Findings called to Dr. Bhatt at the time of dictation. Gideon Brown MD Cervical Spine MRI 09/09/16 Signed Impressions: Service Date/Time: August 16:02 - CONCLUSION: 1. Very minimal degenerative disc disease at C5-6. 2. No acute fracture or prevertebral soft tissue swelling. 3. No focal cervical cord abnormality. Tray Santiago MD Brain MRI 09/09/16 Signed Impressions: Service Date/Time: August 16:02 - CONCLUSION: 1. Diffuse FLAIR-weighted hyperintensities involving the caudate nuclei bilaterally, bilateral hummel radiata, as well as the bilateral parietal and occipital cortex consistent with the patient's clinical diagnosis of anoxic encephalopathy. 2. No acute hemorrhage, midline shift, extra-axial fluid collection or abnormal enhancement. 3. Small fluid level within the right sphenoid sinus. Tray Santiago MD Cervical Spine CT 09/07/16 1800 Signed Impressions: Service Date/Time: Wednesday, September 07, 2016 18:06 - CONCLUSION: 1. No fracture or subluxation. 2. Scattered groundglass nodules throughout the upper lobes, nonspecific but can be seen with hypersensitivity pneumonitis. Artem Madera MD Attending Statement Continue neuro checks. Pulmonary. Continue mechanical ventilation. Continue aggressive pulmonary toilette, nasotracheal suction, and breathing treatments with nebulizers. Nutrition. NPO Renal. monitor closely urine output, BUN and creatinine Endocrine. Monitor serial Acu checks and SSI as needed in detail ID IV antibiotics for staph aereus. Protonix for stress ulcer prophylaxis Carlitos hose and SCD's for DVT prophylaxis Discussed with dr Johnson. Will sign off. reconsult if needed Jomar José MD Sep 28, 2016 13:18
--- NOTE | 2016-09-28 15:38 | HHI.HCPN ---
Reason for visit a. To assist with evaluation and management of symptoms including: Dyspnea , possible pain; encephalopathy; myoclonus. b. To assist medical decision maker(s) with: better understanding of current medical conditions; weighing benefits/burdens of medical treatment options; making medical treatment decisions. . (Peyton Rockwell) Subjective/Interval History Patient seen and examined in ICU. Mother and grandmother at bedside. Also present Pauline Barry LCSW and BENITA Bautista. Patient was transferred back to ICU after Halicat on 09/26/16 for mucous plug. Patient was placed back on mechanical ventilation, tolerating CPAP trials today. Continues with generalized myoclonus. No evidence of neurologic improvement. Draw slightly in right upper extremity. Neurosurgery has signed off. Tolerating tube feedings. Dr. Manuel continues to follow. Family has no additional medical concerns during this visit. Remains hopeful for recovery. Case management has approach the patient's mother regarding applying for Medicaid in order to assist with possible transfer for postacute care. Patient' s mother is refusing to consider discharge at this point in time and did not want to complete paperwork. . Family/friend interactions See interval note. . (Peyton Rockwell) Advance Directives Living Will: Never completed Health Care Surrogate: Never completed Durable Power of Fermentation Scientist: Never completed (Peyton Rockwell) Advance Directive Specifics Significant change in goals: FULL CODE. Goals remain aggressive. (Peyton Rockwell) Objective Vital Signs Date Time Temp Pulse Resp B/P Pulse Ox O2 Delivery O2 Flow Rate FiO2 09/28/16 13:21 40 09/28/16 13:21 98 40 09/28/16 09:07 100 40 09/28/16 09:07 100 Ventilator 50 09/28/16 06:00 103 09/28/16 04:00 50 09/28/16 04:00 103 09/28/16 04:00 98.8 103 24 140/73 100 09/28/16 03:54 100 50 09/28/16 00:00 101 09/28/16 00:00 50 09/28/16 00:00 101.5 101 21 96/53 99 09/27/16 23:50 99 50 09/27/16 22:00 106 09/27/16 21:14 100 50 09/27/16 20:00 50 09/27/16 20:00 101 09/27/16 20:00 99.5 101 20 126/68 100 09/27/16 18:00 97 09/27/16 17:45 98 50 09/27/16 16:00 98.1 103 17 94/51 99 09/27/16 16:00 50 09/27/16 16:00 104 Intake & Output 09/28/16 09/28/16 06:59 18:59 Intake Total 772 ml Balance 772 ml Intake IV Total 147 ml Tube Feeding 515 ml Other 110 ml # Voids 5 # Bowel Movements 0 Physical Exam CONSTITUTIONAL/GENERAL: This is an adequately nourished patient, in no apparent distress, on the ventilator. Initially without tremors, but fine tremor vs myoclonus begins after the stimulation of basic exam. TUBES/LINES/DRAINS: oral bite block in place, Tracheostomy; PEG; peripheral ivs. SCDs, multipurpose boots. SKIN: No jaundice, rashes, or lesions. No wounds seen anteriorly. Skin temperature appropriate. Not diaphoretic. EYES: eyes closed. ENT: Nose without bleeding or purulent drainage. NECK: Tracheostomy wound healing well. CARDIOVASCULAR: Tachycardic ; Regular rhythm without murmurs, gallops, or rubs. No JVD. Peripheral pulses symmetric. RESPIRATORY/CHEST: Symmetric, unlabored respirations. No wheezes or crackles. GASTROINTESTINAL: Abdomen soft, nondistended. PEG tube in place and functioning. MUSCULOSKELETAL: Extremities without clubbing, cyanosis. 1+ edema of the distal extremities. No mottling or clubbing. NEUROLOGICAL: Unresponsive to voice, touch, or painful stimuli. Near continuous tremor / myoclonus noted involving all four extremities once she is stimulated from exam. PSYCHIATRIC: Unable to evaluate due to her clinical condition . (Peyton Rockwell) Diagnostic Tests Laboratory Laboratory Tests Test 09/26/16 09/27/16 09/28/16 09/28/16 10:20 05:30 04:40 11:30 Blood Gas Puncture Site LT RADIAL Blood Gas Patient Temperature 98.6 Blood Gas HCO3 26 mmol/L (22-26) Blood Gas Base Excess 1.6 mmol/L (-2-2) Blood Gas Oxygen Saturation 85 % (90-100) Arterial Blood pH 7.42 (7.380-7.420) Arterial Blood Partial 40 mmHg (38-42) Pressure CO2 Arterial Blood Partial 56 mmHg Pressure O2 (61-120) Arterial Blood Oxygen Content 13.5 Vol % (12.0-20.0) Arterial Blood 0.9 % (0-4) Carboxyhemoglobin Arterial Blood Methemoglobin 1.1 % (0-2) Blood Gas Hemoglobin 11.3 G/DL (12.0-16.0) Oxygen Delivery Device VENTILATOR Blood Gas Ventilator Setting CPAP/PS5/PEEP5 Blood Gas Inspired Oxygen 60 % White Blood Count 13.6 TH/MM3 13.6 TH/MM3 (4.0-11.0) (4.0-11.0) Red Blood Count 3.73 MIL/MM3 3.38 MIL/MM3 (4.00-5.30) (4.00-5.30) Hemoglobin 9.9 GM/DL 9.3 GM/DL (11.6-15.3) (11.6-15.3) Hematocrit 30.2 % 27.5 % (35.0-46.0) (35.0-46.0) Mean Corpuscular Volume 81.0 FL 81.4 FL (80.0-100.0) (80.0-100.0) Mean Corpuscular Hemoglobin 26.4 PG 27.5 PG (27.0-34.0) (27.0-34.0) Mean Corpuscular Hemoglobin 32.6 % 33.8 % Concent (32.0-36.0) (32.0-36.0) Red Cell Distribution Width 14.7 % 14.9 % (11.6-17.2) (11.6-17.2) Platelet Count 586 TH/MM3 449 TH/MM3 (150-450) (150-450) Mean Platelet Volume 6.7 FL 7.1 FL (7.0-11.0) (7.0-11.0) Sodium Level 140 MEQ/L 144 MEQ/L (136-145) (136-145) Potassium Level 3.7 MEQ/L 3.6 MEQ/L (3.5-5.1) (3.5-5.1) Chloride Level 107 MEQ/L 110 MEQ/L (98-107) (98-107) Carbon Dioxide Level 27.2 MEQ/L 26.6 MEQ/L (21.0-32.0) (21.0-32.0) Anion Gap 6 MEQ/L (5-15) 7 MEQ/L (5-15) Blood Urea Nitrogen 22 MG/DL (7-18) 28 MG/DL (7-18) Creatinine 0.55 MG/DL 0.81 MG/DL (0.50-1.00) (0.50-1.00) Estimat Glomerular Filtration 142 ML/MIN 91 ML/MIN (>89) Rate (>89) Random Glucose 140 MG/DL 117 MG/DL (74-106) (74-106) Calcium Level 8.7 MG/DL 8.5 MG/DL (8.5-10.1) (8.5-10.1) Neutrophils (%) (Auto) 75.4 % (16.0-70.0) Lymphocytes (%) (Auto) 9.9 % (9.0-44.0) Monocytes (%) (Auto) 12.2 % (0.0-8.0) Eosinophils (%) (Auto) 1.9 % (0.0-4.0) Basophils (%) (Auto) 0.6 % (0.0-2.0) Neutrophils # (Auto) 10.2 TH/MM3 (1.8-7.7) Lymphocytes # (Auto) 1.3 TH/MM3 (1.0-4.8) Monocytes # (Auto) 1.7 TH/MM3 (0-0.9) Eosinophils # (Auto) 0.3 TH/MM3 (0-0.4) Basophils # (Auto) 0.1 TH/MM3 (0-0.2) CBC Comment DIFF FINAL Differential Comment Phosphorus Level 4.4 MG/DL (2.5-4.9) Magnesium Level 2.2 MG/DL (1.5-2.5) Prothrombin Time 13.1 SEC (9.8-11.6) Prothromb Time International 1.2 RATIO Ratio (Peyton Rockwell) Result Diagram: 09/28/16 0440 09/28/16 0440 Microbiology Microbiology Date/Time Procedure Status Source Growth 09/27/16 18:30 Gram Stain - Final Resulted Sputum Endotracheal 09/27/16 18:30 Sputum Culture - Preliminary Resulted Sputum Endotracheal HEAVY GROWTH NORMAL RESPIRATORY ILIANA... Imaging Last Impressions Chest X-Ray 09/26/16 Signed Impressions: Service Date/Time: Monday, September 26, 2016 10:39 - CONCLUSION: Stable appearance with mild infrahilar opacity again noted. Seth Breen MD Liver Ultrasound 09/18/16 Signed Impressions: Service Date/Time: Sunday, September 18, 2016 09:27 - CONCLUSION: 1. There is sludge within the gallbladder. No other findings are present to indicate acute cholecystitis. 2. Mild splenomegaly. Miller Lee MD IVC Filter Placement X-Ray 09/12/16 Signed Impressions: Service Date/Time: Monday, September 12, 2016 20:00 - CONCLUSION: Caval thrombosis extending from the suprarenal IVC to the infrarenal IVC. This is nonocclusive. A retrievable IVC filter was deployed below the main hepatic veins but it was necessary to cross an accessory right hepatic vein. Jose Armando Jackson Jr., MD Head CT 09/12/16 Signed Impressions: Service Date/Time: Monday, September 12, 2016 09:29 - CONCLUSION: Mild loss of lemos matter definition that can be seen with increasing intracranial pressure. Ricki Cavazos MD FACR Neck Magnetic Resonance Angiography 09/09/16 Signed Impressions: Service Date/Time: August 16:02 - CONCLUSION: 1. Moderate to severe smooth narrowing of the left common carotid artery and also moderate narrowing of the proximal right common carotid artery as well as narrowing of both proximal vertebral arteries likely related to recent hanging. Etiology could be related to vasospasm or recent extrinsic prolonged compression. The distal internal carotid arteries and vertebral artery have more normal calibers. Findings called to Dr. Bhatt at the time of dictation. Gideon Brown MD Cervical Spine MRI 09/09/16 Signed Impressions: Service Date/Time: August 16:02 - CONCLUSION: 1. Very minimal degenerative disc disease at C5-6. 2. No acute fracture or prevertebral soft tissue swelling. 3. No focal cervical cord abnormality. Tray Santiago MD Brain MRI 09/09/16 Signed Impressions: Service Date/Time: August 16:02 - CONCLUSION: 1. Diffuse FLAIR-weighted hyperintensities involving the caudate nuclei bilaterally, bilateral hummel radiata, as well as the bilateral parietal and occipital cortex consistent with the patient's clinical diagnosis of anoxic encephalopathy. 2. No acute hemorrhage, midline shift, extra-axial fluid collection or abnormal enhancement. 3. Small fluid level within the right sphenoid sinus. Tray Santiago MD Cervical Spine CT 09/07/16 1800 Signed Impressions: Service Date/Time: Wednesday, September 07, 2016 18:06 - CONCLUSION: 1. No fracture or subluxation. 2. Scattered groundglass nodules throughout the upper lobes, nonspecific but can be seen with hypersensitivity pneumonitis. Artem Madera MD Procedures Prakash bolt 09/12/16 (and subsequent removal) Tracheostomy PEG tube placement . 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 . (2) pain 0-10 Scale: Unable to quantify Comment: Possible sources of pain include trauma from hanging; tracheostomy wound; prolonged bedbound status; venous access catheters; anton; etc. Pertinent Non-Medical Issues Psychosocial: Unmarried, no children. Spiritual: Not spiritual or druze, but family reports that they are Mandaeism and quite spiritual. Their rabbi has participated in care during this hospitalization. Jaibi has told mother "she should give it a month." Legal: The patient lacks capacity for decision-making and will not regain that capacity. The patient's father has not been a part of her life since , and his whereabouts are unknown. The patient is unmarried, and her mother is thus the decision making proxy. Ethical issues impacting care: None . Important Contacts Mother: Agnieszka "Reymundo" [facility] [phone] Grandmother: Loy "Edie" [facility] [phone] Boyfriend: Seth "Jake" Carlos Eduardo [phone] . Prognosis The patient's prognosis is poor, and clearly she will not recover significant brain function. If the goals become comfort oriented, she is appropriate for withdrawal of life support, and hospice care. . Code Status: Full Code Plan * FULL CODE, per patient's mother on 09/17/16. The patient's mother notes that her Mandaeism tradition "would not allow me to make her a DNR." has told mother to "give it a month." * GOALS: The patient's mother has a clear understanding of the brain injury and poor prognosis, but wants to "allow more time for a possible miracle." Goals remain aggressive at this time. told her "to give it a month." * DECISION-MAKING: The patient lacks capacity for decision-making and there is no reasonable medical probability of recovering capacity. There has been no contact with the patient's father since the patient was born, and the decision making proxy is the patient's mother "Reymundo." * Pain: She is receiving scheduled oxycodone and prn fentanyl. The prn fentanyl appears to be be given to supplement scheduled clonazepam and prn lorazepam for myoclonus. It is difficult to know if there is any actual discomfort. No further recommendations at this time. * Dyspnea is being managed via trach - to t-tube. If there is dyspnea, it is probably also helped by opiates and benzos currently being given. No further recommendations at this time. * Encephalopathy is likely secondary to the anoxic injury with neurology feeling there is poor prognosis for any type of meaningful recovery. I have no further medication recommendations at this time. 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 We could either increase the clonazepam or add valproic acid. If we go the latter route, can start at 15mg/kg day increasing by 5-10 mg/kg per day each week with the therapeutic range usually between 1200 and 2000 mg /day. * Dr. Manuel continues to follow to help with education regarding hypoxic brain injury, coma, and prognosis. * Palliative care social sciences lecturer visited today to provide additional support for family. * Palliative Care will continue to follow the patient during this hospitalization to assist with symptom management and to further clarify goals of medical treatment as the clinical course evolves. . (Peyton Rockwell) Attestation To help prompt me to consider important information that might be impacting today's encounter and assessment, information from prior notes written by myself or my colleagues may have been "brought forward" into today's note. My signature on this note, however, is an attestation that I personally performed the exam, history, and/or decision-making noted today, and, unless otherwise indicated, the interactions with patient, family, and staff as well as the review of records all occurred today. I also attest that the listed assessment and stated plan reflect my best clinical judgment today based on the combination of historical information, prior notes, and today's exam/ interactions. When time spent is documented, it refers only to time spent today by the signer, or if indicated, combined time spent today by collaborating physician/nurse practitioner. (Peyton Rockwell) Peyton Rockwell Sep 28, 2016 15:38 Israel Nolasco MD Sep 30, 2016 15:58
[2016-09-28] MEDS: WARFARIN SOD 2 MG TAB PO SCH (16:21)
--- NOTE | 2016-09-28 19:39 | HHI.PR ---
Subjective Remarks 20 YOWF with Anoxic encephalopathy, cardiac arrest, hanging Has twitching movements Developed SOB last night On PRVC has Fever 101.0 Objective Vital Signs Vital Signs Date Time Temp Pulse Resp B/P Pulse Ox O2 Delivery O2 Flow Rate FiO2 09/28/16 18:00 117 09/28/16 17:03 100 40 09/28/16 16:00 101.1 113 26 127/70 100 09/28/16 16:00 111 09/28/16 16:00 40 09/28/16 14:00 102 09/28/16 13:30 40 09/28/16 13:21 40 09/28/16 13:21 98 40 09/28/16 12:00 108 09/28/16 12:00 100.0 108 17 113/65 98 09/28/16 12:00 50 09/28/16 10:00 112 09/28/16 09:07 100 40 09/28/16 09:07 100 Ventilator 50 09/28/16 08:00 50 09/28/16 08:00 101.5 102 24 114/57 100 09/28/16 08:00 102 09/28/16 06:00 103 09/28/16 04:00 50 09/28/16 04:00 103 09/28/16 04:00 98.8 103 24 140/73 100 09/28/16 03:54 100 50 09/28/16 00:00 101 09/28/16 00:00 50 09/28/16 00:00 101.5 101 21 96/53 99 09/27/16 23:50 99 50 09/27/16 22:00 106 09/27/16 21:14 100 50 09/27/16 20:00 50 09/27/16 20:00 101 09/27/16 20:00 99.5 101 20 126/68 100 I/O 09/27/16 09/27/16 09/27/16 09/28/16 09/28/16 09/28/16 07:00 15:00 23:00 07:00 15:00 23:00 Intake Total 366 ml 721 ml 317 ml 455 ml 999 ml Balance 366 ml 721 ml 317 ml 455 ml 999 ml Intake IV Total 127 ml 187 ml 77 ml 70 ml 114 ml Tube Feeding 199 ml 234 ml 190 ml 325 ml 685 ml Other 40 ml 300 ml 50 ml 60 ml 200 ml # Voids 3 3 2 3 5 # Bowel Movements 0 0 0 0 1 Result Diagram: 09/28/1643909/28/16439 Objective Remarks GENERAL: Thin built female, on trach tube SKIN: Warm and dry. HEAD: Normocephalic. EYES: No scleral icterus. No injection or drainage. NECK: Supple, trachea midline. No JVD or lymphadenopathy. Has trach CARDIOVASCULAR: Regular rate and rhythm without murmurs, gallops, or rubs. RESPIRATORY: Breath sounds equal bilaterally. No accessory muscle use. GASTROINTESTINAL: Abdomen soft, non-tender, nondistended. PEG tube MUSCULOSKELETAL: No cyanosis, or edema. BACK: Nontender without obvious deformity. No CVA tenderness. A/P Assessment and Plan Resp Failure S/P trach Anoxic encephalopathy cardiac arrest, hanging S/P PEG PLAN: Vent support, wean 02 Trach care Aerosol prn Cont Abx On Evgeny Lowe MD Sep 28, 2016 19:39
[2016-09-29] VITALS (30 sets, daily range): BP systolic 93–110; BP diastolic 42–67; PULSE 86–106; RESP 16–23; TEMP 97.6–101.4; O2SAT 94–100
[2016-09-29] MEDS: LORazepam 2 MG/ML VIAL IV PRN (00:25)
[2016-09-29] MEDS: SODIUM CHLORIDE 1 GRAM TAB G-TUBE SCH ×4 (00:40→15:06)
[2016-09-29] MEDS: PROPRANOLOL HCL 20 MG TAB G-TUBE SCH ×5 (00:40→17:19)
[2016-09-29] MEDS: clonazePAM 1 MG TAB G-TUBE SCH ×3 (01:45→17:19)
[2016-09-29] MEDS: CHLORHEXIDINE GLUCONATE 2 % 1 PACK (2 CLOTHS) TOP SCH (02:31)
[2016-09-29] MEDS: RESP: ALBUTEROL 2.5 MG/IPRATROPIUM 0.5 MG NEB (SCH) NEB ×4 (03:14→20:40)
[2016-09-29] MEDS: RESP: SODIUM CHLORIDE 3% 4 ML NEB NEB SCH ×4 (03:14→20:40)
[2016-09-29] MEDS: METOCLOPRAMIDE HCL 10 MG/2 ML VIAL IV PUSH SCH ×3 (06:51→21:41)
[2016-09-29 07:01] LABS: AUTOMATED NEUTROPHIL # 9.8 TH/MM3 (1.8-7.7); BASOPHIL # 0.1 TH/MM3 (0-0.2); BASOPHIL % 0.5 % (0.0-2.0); EOSINOPHIL # 0.4 TH/MM3 (0-0.4); EOSINOPHIL % 3.1 % (0.0-4.0); HEMO FLAGS DIFF FINAL; LYMPH % 13.4 % (9.0-44.0); LYMPHOCYTE # 1.8 TH/MM3 (1.0-4.8); MEAN CELL VOLUME 80.6 FL (80.0-100.0); MEAN CORPUSCULAR HEMOGLOBIN 27.5 PG (27.0-34.0); MEAN CORPUSCULAR HGB CONC 34.1 % (32.0-36.0); MONO % 10.8 % (0.0-8.0); NEUT % 72.2 % (16.0-70.0); PLATELET COUNT 468 TH/MM3 (150-450); RED BLOOD COUNT 3.11 MIL/MM3 (4.00-5.30); RED CELL DISTRIBUTION WIDTH 13.6 % (11.6-17.2); WHITE BLOOD COUNT 13.6 TH/MM3 (4.0-11.0)
[2016-09-29 07:04] LABS: ANION GAP 7 MEQ/L (5-15); BICARBONATE 28.3 MEQ/L (21.0-32.0); BLOOD UREA NITROGEN 24 MG/DL (7-18); CHLORIDE 109 MEQ/L (98-107); MAGNESIUM 1.8 MG/DL (1.5-2.5); POTASSIUM 3.7 MEQ/L (3.5-5.1); SODIUM (NA) 144 MEQ/L (136-145)
--- NOTE | 2016-09-29 07:04 | HHI.CCPN ---
Subjective Remarks/Hospital Course 19 years old was brought in as a trauma alert. He has had to hanged herself and was found by her roommate. Unknown time of hanging. When fire department arrived patient was in asystole. CPR was started and one round of meds were given as per ACLS protocol. There was return of spontaneous circulation soon after that. Patient was brought in getting breaths by BV. She had a blood pressure and half way to arriving to the ER she started having some spontaneous respirations. She continued to be a GCS 3 when she arrived. She is admitted to critical care unit and therapeutic hypothermia protocol is initiated. 09/08/16: Patient achieving target temperature but developing severe shock. Levothroid had been increased to 30 mcg/m Mehdi-Synephrine added. Additional fluid boluses ordered currently on bicarbonate infusion additional one amp of bicarbonate given. Chest x-ray shows severe aspiration pneumonitis predominantly right lower lobe infiltrates. Zosyn 4.5 GM IV q8 started, give single dose of vanc 09/09/16: Patient is in the rewarming phase of hypothermia protocol. Once sedation was lightened and taken off the Nimbex, patient started developing tonic-clonic generalized seizure like activity. Bolused with a total of 6 mg Ativan in divided doses and restarted on Versed and propofol infusions. Loaded with Cerebyx 1 g and scheduled at 100 mg every 8 hours. Stat EEG pending. Neurology following 09/10/16: Remains on high dose of vasopressors, MRI brain shows evidence of anoxic brain injury. MRA neck bilateral common carotid narrowing. Start on aspirin get vascular surgery consult. No further seizure-like episodes noted. Pupils are equal bilaterally with slight withdrawal of right lower extremity to central pain. 09/11/16: Currently remains off all sedation in process. No noticeable improvement in neuro status, slight withdrawal x4. Aspirin started for bilateral common carotid narrowing-vascular surgery consult appreciated. Continue Cerebyx EEG sharp activity on eeg. MRI indicates diffuse anoxic brain injury with poor prognosis. EEG bihemispheric slowing and intermittent right central posterior sharp discharges which appear to be epileptiform. Dilantin level is therapeutic 09/12/16: Overnight had episodes myoclonus versus seizures. Neuro exam remains poor. No significant improvement. Low grade fever. Remains tachypneic on the ventilator. Restart propofol for vent synchrony 09/13/16: Neuro exam remains unchanged overnight. ICP monitor placed 09/12 for cerebral edema- ICP controlled with hyperosmolar therapy. 2 episodes of seizures vs myoclonus reported. Repeat EEG today. IVC filter placed 09/12/16 evening for large IVC thrombus. Unable to anticoagulate due to thrombocytopenia , cerebral edema-high risk of bleeding 09/14 EEG yesterday showed severe encephalopathy. ICP mainly 10-13 but intermittently spiked up to max of 22, improved with propofol bolus. Myoclonus noted with any tactile stimulation. 09/15 Comatose with myoclonus. ICP intermittently increased to 20, sometimes drifts down without intervention, sometimes improves with sedation. Extensor posturing. 09/16 Off continuous sedation. Comatose with myoclonus. Corneal reflex present on left, absent on right. ICP monitor removed today per NSG. 09/17: no significant neurologic improvement. off sedation. only intermittent ativan for myoclonus which improves symptoms. family meeting today, and family requests aggressive care, including trach/peg. 09/18: No change in neuro exam. Continued to spike high temperatures up to 102.5. CBC pending. I will discontinue Cerebyx start Keppra, check gallbladder ultrasound again and placed on empiric cefepime and single dose of vancomycin. Sputum culture Gram stain shows few GPC. On cooling blanket, and Tylenol. Motrin added. s/p Trach yesterday 09/19: no improvements or changes. sodium trending down. repeat sputum culture 09/17 growing staph aureus. KP pending. 09/20: No change in neuro exam. Overnight spike fever 103 again. Patient has bloody secretion from bilateral nares-she may have some acute sinusitis. Continue broad-spectrum antibiotics. Discontinue NG tube as the patient is getting PEG today 09/21: PEG yesterday. no changes. sputum again growing MSSA. 09/22: Colonization, no pneumonia. 09/23: No change in neuro status. 09/26: Halicat from floor after mucus plug. Back on vent. Sats marginal. 09/27: Remains on PRVC +8 ventilation. Resting in bed in no acute distress. Continues with generalized myoclonus. Withdraws right upper extremity only for me. RN stated left upper extremity. Gaze to right. Subjective: 09/28: PEEP decreased to 5. FiO2 decreased to 40%. Continues with generalized myoclonus. Vaguely withdrawals to noxious stimuli. Tmax 101.5. Tolerating tube feeds better. 09/29: Transferred from [facility] to [place] ICU yesterday night. No acute events overnight. Chest x-ray clear on my review. Tmax 102.5. WBC count pending Objective Vital Signs Date Time Temp Pulse Resp B/P Pulse Ox O2 Delivery O2 Flow Rate FiO2 09/29/16 06:00 96 09/29/16 05:15 97 35 09/29/16 04:00 98.9 18 97/67 09/28/16 09:07 Ventilator 09/26/16 07:58 6.00 Intake and Output 09/28/16 09/28/16 09/28/16 07:59 15:59 23:59 Intake Total 455 ml 999 ml 387 ml Balance 455 ml 999 ml 387 ml Result Diagram: 09/28/16 0440 09/28/16 0440 Imaging Last Impressions Chest X-Ray 09/26/16 0000 Signed Impressions: Service Date/Time: Monday, September 26, 2016 10:39 - CONCLUSION: Stable appearance with mild infrahilar opacity again noted. Seth Breen MD Liver Ultrasound 09/18/16 0000 Signed Impressions: Service Date/Time: Sunday, September 18, 2016 09:27 - CONCLUSION: 1. There is sludge within the gallbladder. No other findings are present to indicate acute cholecystitis. 2. Mild splenomegaly. Miller eLe MD IVC Filter Placement X-Ray 09/12/16 0000 Signed Impressions: Service Date/Time: Monday, September 12, 2016 20:00 - CONCLUSION: Caval thrombosis extending from the suprarenal IVC to the infrarenal IVC. This is nonocclusive. A retrievable IVC filter was deployed below the main hepatic veins but it was necessary to cross an accessory right hepatic vein. Jose Armando Jackson Jr., MD Head CT 09/12/16 0000 Signed Impressions: Service Date/Time: Monday, September 12, 2016 09:29 - CONCLUSION: Mild loss of lemos matter definition that can be seen with increasing intracranial pressure. Ricki Cavazos MD FACR Neck Magnetic Resonance Angiography 09/09/16 0000 Signed Impressions: Service Date/Time: August 16:02 - CONCLUSION: 1. Moderate to severe smooth narrowing of the left common carotid artery and also moderate narrowing of the proximal right common carotid artery as well as narrowing of both proximal vertebral arteries likely related to recent hanging. Etiology could be related to vasospasm or recent extrinsic prolonged compression. The distal internal carotid arteries and vertebral artery have more normal calibers. Findings called to Dr. Bhatt at the time of dictation. Gideon Brown MD Cervical Spine MRI 09/09/16 0000 Signed Impressions: Service Date/Time: August 16:02 - CONCLUSION: 1. Very minimal degenerative disc disease at C5-6. 2. No acute fracture or prevertebral soft tissue swelling. 3. No focal cervical cord abnormality. Tray Santiago MD Brain MRI 09/09/16 0000 Signed Impressions: Service Date/Time: August 16:02 - CONCLUSION: 1. Diffuse FLAIR-weighted hyperintensities involving the caudate nuclei bilaterally, bilateral hummel radiata, as well as the bilateral parietal and occipital cortex consistent with the patient's clinical diagnosis of anoxic encephalopathy. 2. No acute hemorrhage, midline shift, extra-axial fluid collection or abnormal enhancement. 3. Small fluid level within the right sphenoid sinus. Tray Santiago MD Cervical Spine CT 09/07/16 1800 Signed Impressions: Service Date/Time: Wednesday, September 07, 2016 18:06 - CONCLUSION: 1. No fracture or subluxation. 2. Scattered groundglass nodules throughout the upper lobes, nonspecific but can be seen with hypersensitivity pneumonitis. Artem Madera MD Objective Remarks GENERAL: 20-year-old female, resting in bed SKIN: Warm and dry. HEAD: Normocephalic. Pupils are 4 mm bilaterally. EYES: No scleral icterus. No injection or drainage. NECK: trachea midline. trach site clean, dry. CARDIOVASCULAR: The cardiac, RRR. S1, S2 no S4. Without murmur. RESPIRATORY: unlabored. equal chest rise. clear, no wheezes or crackles. GASTROINTESTINAL: Abdomen soft, non-tender, distended. G-tube is clean dry and intact MUSCULOSKELETAL: Trace to 1+ generalized upper and lower extremity NEURO: Pupils are 4 mm. Disconjugate right gaze. To deep central and peripheral noxious stimuli withdraws right upper extremity, clolin lower extremity. General myoclonic movements on stimulation. (RN reports questionable eye opening x1 09/28) A/P Assessment and Plan NEURO/PSYCH: Severe anoxic brain injury Collin common carotid narrowing Attempted suicide by hanging Seizure, Myoclonus Depression - MRI shows evidence of diffuse anoxic brain injury including weighted hyperintensity bilateral caudate, bilateral CR, bilateral occipital and parietal lobes. - MRA neck bilateral common carotid narrowing-vascular surgery consulted, no intervention. started aspirin 09/10 - CT 09/12-loss salguero/white matter differentiation c/w cerebral edema. ICP monitor placed 09/12 , removed 09/16. - EEG 09/10 bilateral sharp activity, on Dilantin. Level therapeutic 09/12. DCd Dilantin 09/18/16 due high fever, started Keppra - EEG 09/11 Encephalopathy, no sz. - EEG 09/13severe encephalopathy. (delta waves) - s/p induced hypothermia. - Neurology Dr. Valdez has followed. He states prognosis is poor and recommended comfort measures. - NSG Dr. José states poor prognosis, recommends comfort care. - Toxicology negative - Clonazepam 1 mg by PEG every 8 hours scheduled for clonus - Ativan 1 mg IV every hours for symptomatic control for severe myoclonus. - Oxycodone 5mg every 6 hours scheduled for pain. Fentanyl prn CV: Status postcardiac arrest Hemodynamic stable - Currently not requiring vasopressors and/or anti-hypertensives. Resp: Vent dependent hypoxemic respiratory failure Pre-hospital Aspiration pneumonitis Mucous plugging - [facility], /02/18/39 - ventilator bundle. - Start CPAP trials and TP is if tolerated - Albuterol/Atrovent aerosols every 6 hours and albuterol aerosols when necessary At hypertonic saline for mucolytic 5 days s/p trach 09/17/16. Vijay Jackson and Kunal GI/FEN: Transaminitis most likely from shock, resolved. Hyponatremia - Tube feedings Jevity 1.5 at 50 L per hour per nutrition recommendations. - s/p PEG 09/20 - repeat GB u/s without signs of cholecystitis 09/18 - Continue salt tabs 1gm po q8hr. - Liver ultrasound 09/12large nonocclusive thrombus and IVC. Renal/: Fluid overload- persistent. -Monitor BUN/creatinine daily. - Inaccurate I/O due to lack Benjamin. ID: Fever, sepsis Blood urine cultures pending 09/27 Sputum with MSSA 09/08. 09/[address] on Zosyn until cultures are back, consult ID - Zosyn 4.5 g IV every 6 hours 09/08-09/15 .fever may be secondary to DVT. Off vancomycin. - Fever up to 103 GPC on sputum MSSA. Vancomycin 1 g IV 1. - sputum culture 09/17 staph aureus. de-escalate to Ancef 2gm iv q8h, total 10 day course of abx for recurrent MSSA pna. Recheck sputum culture today 09/27 As needed acetaminophen Endo: - Sliding-scale insulin if needed HEME: Leukocytosis Thrombocytosis Normocytic anemia Large IVC thrombus - Monitor CBC CMP coags. - IVC filter placed 09/12 due to inability to anticoagulate (thrombocytopenia) and cerebral edema. - Now platelets improved, on fondaparinux 7.5 mg daily from 09/18/16. 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 KP negative. DVT GI prophylaxis - IVC filter in place. Continue lansoprazole.fondaparinux 7.5 mg daily started 09/18/16 Lines: - PIV Level III follow-up Lyndon Bhatt MD Sep 29, 2016 07:04
[2016-09-29 07:07] LABS: ALT (GPT) 70 U/L (9-42); AST (GOT) 92 U/L (16-38)
[2016-09-29 07:08] LABS: GLOMERULAR FILTRATION RATE 142 ML/MIN (>89)
[2016-09-29 07:09] LABS: TOTAL BILIRUBIN ADULT 0.4 MG/DL (0.2-1.0)
[2016-09-29 07:10] LABS: ALKALINE PHOSPHATASE 107 U/L (45-117)
--- NOTE | 2016-09-29 07:11 | RADRPT ---
EXAM DATE/TIME: 09/29/2016 06:35 [place] COMPARISON: CHEST SINGLE AP, September 26, 2016, 10:39. INDICATIONS : Respiratory failure. MEDICAL HISTORY : Tremors. Depression. Seizure. Suicide attempt. SURGICAL HISTORY : PEG placement. ENCOUNTER: Subsequent ACUITY: 3 weeks PAIN SCORE: Non-responsive. LOCATION: chest FINDINGS: A single view of the chest demonstrates the lungs to be symmetrically aerated without evidence of mas s, infiltrate or effusion. Tracheostomy tube and IVC filter in good position. The cardiomediastinal contours are unremarkable. Osseous structures are intact. CONCLUSION: Lungs are grossly clear. Jarred Kerr MD on September 29, 2016 at 7:09 Board Certified Radiologist. This report was verified electronically.
[2016-09-29] MEDS ORDERED: VANCOMYCIN INJ 1,000 MG in SODIUM CHLOR 0.9% 250 ML INJ 250 ML IV ONE (07:15)
[2016-09-29] MEDS: SODIUM CHLORIDE 0.9% FLUSH 10 ML FLUSH IV FLUSH PRN ×3 (07:44→21:42)
[2016-09-29 08:10] LABS: INTERNATIONAL NORMALIZED RATIO 1.2 RATIO; PROTHROMBIN TIME - PATIENT 13.3 SEC (9.8-11.6)
[2016-09-29 08:50] LABS: BLOOD, URINE LARGE (NEG); GLUCOSE,URINE NEG (NEG); KETONE, URINE NEG (NEG); NITRITE,URINE NEG (NEG); PH, URINE 5.5 (5.0-8.5)
[2016-09-29 08:51] LABS: METHOD OF COLLECTION CATH; URINE COLOR YELLOW (YELLW/STRAW)
[2016-09-29 08:54] LABS: COMMENT (UR) CATH-CULTURE IND; CULTURE IF INDICATED CATH CULTURE IND
[2016-09-29] MEDS ORDERED: FONDAPARINUX SODIUM 7.5 MG/0.6 ML SYRINGE SQ SCH (09:00)
[2016-09-29] MEDS ORDERED: FONDAPARINUX SODIUM 7.5 MG/0.6 ML SYRINGE SQ ONE (09:00)
[2016-09-29] MEDS: BISACODYL 10 MG SUPP RECTAL SCH (09:00)
[2016-09-29] MEDS: LANSOPRAZOLE SOLUTAB 30 MG TAB NG SCH (09:34)
[2016-09-29] MEDS: DOCUSATE SODIUM 100 MG/10 ML UDC G-TUBE SCH ×2 (09:34→21:41)
[2016-09-29] MEDS: POTASSIUM CHLORIDE 25 MEQ EFFERVESCENT TAB G-TUBE SCH (09:35)
[2016-09-29] MEDS: ARTIFICIAL TEARS OPTH SOLN 15 ML BTL EACH EYE SCH ×2 (09:37→21:41)
[2016-09-29] MEDS: levETIRAcetam 500 MG/5 ML UDC NG SCH ×2 (09:38→21:43)
[2016-09-29] MEDS: PIPERACIL-TAZO 4.5 GM PREMIX 100 ML IV SCH ×3 (09:38→21:41)
--- NOTE | 2016-09-29 14:04 | PD.CONS ---
History of Present Illness Service Infectious disease Consult Requested By Dr. Bhatt Reason for Consult Evaluate patient with fever Primary Care Physician No Primary Care Physician Diagnoses: History of Present Illness Patient seen and examined. Records reviewed. Patient is a 20-year-old female, admitted to the hospital as a trauma alert, after she was found by her roommate hanging from a pull up the bar. When he MS giancarlo, she was apparently in asystole, and CPR was started. She was successfully resuscitated, and brought to the hospital for further evaluation and treatment. She was admitted September 07. Subsequent evaluation revealed significant anoxic injury. She has had some myoclonic. There has been no significant neurologic improvement. She remains on the vent, and underwent tracheostomy on September 17. He also had placement of a PEG on September 21. Patient has been treated for MSSA in her sputum. She has had intermittent fevers,. The last time she was treated for MSSA pneumonia was with Ancef and she received treatment until September 26. Patient has been afebrile since September 20, but started having fevers again September 26. Temperatures seem to be higher and persistent, and infectious disease consultation has been requested to evaluate the patient. She was initially at [facility], and transferred to [facility] ICU last night. Discussed the case with the RN taking care of the patient. He remains vent dependent. She does not have a lot of secretions from her tracheostomy. She has been tolerating her tube feeding through the PEG. No diarrhea reported. Patient apparently has had incontinence, but Benjamin was inserted today and there was a lot of sediment in her urine. She does not have any central line, and has peripheral IVs in place. Patient also has had IVC filter placed on September 12 for a large thrombus in the inferior vena cava. She also has had some mild elevation of her AST and ALT, and ultrasound of the liver showed gallbladder sludge, but no evidence of cholecystitis. Because of the persistent high fevers, infectious disease consultation has been requested today. Review of Systems ROS Limitations: Clinical Condition, Intubated, Unresponsive Past Family Social History Allergies: Coded Allergies: No Known Allergies (Unverified , 09/07/16) Past Medical History According to the mom patient has been treated in the past for UTI otherwise fairly unremarkable One of the record also mention depression Past Surgical History None prior to this hospitalization Has had tracheostomy and PEG placement here Active Ordered Medications Tylenol Albuterol Dulcolax Clonopin Colace Fentanyl Arixtra Prevacid Keppra Ativan MOM Reglan Zofran Oxycodone Zosyn Potassium Inderal Vancomycin Coumadin Family History Noncontributory Social History No smoking No alcohol abuse No drugs Physical Exam Vital Signs Vital Signs Date Time Temp Pulse Resp B/P Pulse Ox O2 Delivery O2 Flow Rate FiO2 09/29/16 12:00 97 09/29/16 12:00 100.0 100 19 102/49 97 09/29/16 12:00 35 09/29/16 11:09 95 35 09/29/16 11:00 96 17 95/46 94 09/29/16 10:00 96 18 100/55 100 09/29/16 10:00 96 09/29/16 09:00 94 16 100/55 99 09/29/16 08:00 99.2 94 18 110/59 99 09/29/16 08:00 100 09/29/16 08:00 35 09/29/16 07:30 99 35 09/29/16 07:00 100 23 100/56 95 09/29/16 06:00 96 09/29/16 05:15 97 35 09/29/16 04:00 35 09/29/16 04:00 98.9 98 18 97/67 94 09/29/16 04:00 98 09/29/16 02:30 98 09/29/16 02:10 99 35 09/29/16 01:16 97 35 09/29/16 00:00 35 09/29/16 00:00 86 09/29/16 00:00 98.8 86 16 107/64 98 09/28/16 22:04 93 35 09/28/16 22:00 108 09/28/16 20:10 100 35 09/28/16 20:00 40 09/28/16 20:00 110 09/28/16 20:00 102.5 110 23 121/78 100 09/28/16 18:00 117 09/28/16 17:03 100 40 09/28/16 16:00 101.1 113 26 127/70 100 09/28/16 16:00 111 09/28/16 16:00 40 09/28/16 14:00 102 Physical Exam GENERAL: Patient is a young, thin, well-developed CF, unresponsive on the vent, not in respiratory distress. SKIN: Warm and dry. No generalized rash, no ecchymoses and no evidence of embolic lesions. HEAD: Atraumatic. Normocephalic. No temporal wasting, or tenderness. EYES: Rochelle conjunctiva. No petechia or hemorrhage. Pupils equal, round and reactive to light. No scleral icterus. No injection or drainage. She has an upward gaze EARS, NOSE AND THROAT: Nose without bleeding or purulent nasal discharge. Slightly dry caroline mucosa, unable to examine the mouth completely. NECK: Supple, no rigidity. Tracheostomy site looks ok. CARDIOVASCULAR: Regular rate and rhythm. No murmurs, rubs or gallops heard RESPIRATORY: Coarse breath sounds bilaterally. Breath sounds equal bilaterally. ABDOMEN: Soft, flat, not distended, no reaction to deep palpation. PEG site looks okay. Bowel sounds present and normoactive. No organomegaly. EXTREMITIES: No clubbing, cyanosis, or edema. No joint effusion. Well perfused and warm. NEUROLOGICAL: Unresponsive. Has an upward gaze. PSYCHIATRIC: Unable to asses LINE: PIV with no evidence of infection : Benjamin in place, with some sediment Laboratory Laboratory Tests Test 09/29/16 09/29/16 06:15 08:08 White Blood Count 13.6 Red Blood Count 3.11 Hemoglobin 8.6 Hematocrit 25.0 Mean Corpuscular Volume 80.6 Mean Corpuscular Hemoglobin 27.5 Mean Corpuscular Hemoglobin 34.1 Concent Red Cell Distribution Width 13.6 Platelet Count 468 Mean Platelet Volume 7.3 Neutrophils (%) (Auto) 72.2 Lymphocytes (%) (Auto) 13.4 Monocytes (%) (Auto) 10.8 Eosinophils (%) (Auto) 3.1 Basophils (%) (Auto) 0.5 Neutrophils # (Auto) 9.8 Lymphocytes # (Auto) 1.8 Monocytes # (Auto) 1.5 Eosinophils # (Auto) 0.4 Basophils # (Auto) 0.1 CBC Comment DIFF FINAL Differential Comment Prothrombin Time 13.3 Prothromb Time International 1.2 Ratio Sodium Level 144 Potassium Level 3.7 Chloride Level 109 Carbon Dioxide Level 28.3 Anion Gap 7 Blood Urea Nitrogen 24 Creatinine 0.55 Estimat Glomerular Filtration 142 Rate Random Glucose 93 Calcium Level 8.7 Phosphorus Level 3.7 Magnesium Level 1.8 Total Bilirubin 0.4 Aspartate Amino Transf 92 (AST/SGOT) Alanine Aminotransferase 70 (ALT/SGPT) Alkaline Phosphatase 107 Total Protein 6.4 Albumin 2.4 Urine Collection Type CATH Urine Color YELLOW Urine Turbidity CLEAR Urine pH 5.5 Urine Specific Michie 1.022 Urine Protein TRACE Urine Glucose (UA) NEG Urine Ketones NEG Urine Occult Blood LARGE Urine Nitrite NEG Urine Bilirubin NEG Urine Leukocyte Esterase NEG Urine RBC 25-49 Urine WBC 3-5 Urine WBC Clumps OCC Urine Squamous Epithelial 6-8 Cells Urine Amorphous Sediment FEW Microscopic Urinalysis Comment CATH-CULTURE IND Urine Collection Time 08:08 Date/Time Procedure Status Source Growth 09/29/16 08:08 Urine Culture Received Urine Catheterized Urine Pending 09/28/16 15:15 Aerobic Blood Culture - Preliminary Resulted Blood Peripheral NO GROWTH IN 1 DAY 09/28/16 15:15 Anaerobic Blood Culture - Preliminary Resulted Blood Peripheral NO GROWTH IN 1 DAY 09/27/16 18:30 Gram Stain - Final Resulted Sputum Endotracheal 09/27/16 18:30 Sputum Culture - Preliminary Resulted Staphylococcus Aureus Result Diagram: 09/29/16 0615 09/29/16 0615 Imaging RADIOLOGY STUDIES/FILMS REVIEWED Chest X-Ray 09/29/16 0600 Signed Impressions: Service Date/Time: Thursday, September 29, 2016 06:35 - CONCLUSION: Lungs are grossly clear. Jarred Kerr MD Liver Ultrasound 09/18/16 0000 Signed Impressions: Service Date/Time: Sunday, September 18, 2016 09:27 - CONCLUSION: 1. There is sludge within the gallbladder. No other findings are present to indicate acute cholecystitis. 2. Mild splenomegaly. 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 This is nonocclusive. A retrievable IVC filter was deployed below the main hepatic veins but it was necessary to cross an accessory right hepatic vein. Jose Armando Jackson Jr., MD Head CT 09/12/16 0000 Signed Impressions: Service Date/Time: Monday, September 12, 2016 09:29 - CONCLUSION: Mild loss of lemos matter definition that can be seen with increasing intracranial pressure. Ricki Cavazos MD FACR Neck Magnetic Resonance Angiography 09/09/16 0000 Signed Impressions: Service Date/Time: August 16:02 - CONCLUSION: 1. Moderate to severe smooth narrowing of the left common carotid artery and also moderate narrowing of the proximal right common carotid artery as well as narrowing of both proximal vertebral arteries likely related to recent hanging. Etiology could be related to vasospasm or recent extrinsic prolonged compression. The distal internal carotid arteries and vertebral artery have more normal calibers. Findings called to Dr. Bhatt at the time of dictation. Gideon Brown MD Cervical Spine MRI 09/09/16 0000 Signed Impressions: Service Date/Time: August 16:02 - CONCLUSION: 1. Very minimal degenerative disc disease at C5-6. 2. No acute fracture or prevertebral soft tissue swelling. 3. No focal cervical cord abnormality. Tray Santiago MD Brain MRI 09/09/16 0000 Signed Impressions: Service Date/Time: August 16:02 - CONCLUSION: 1. Diffuse FLAIR-weighted hyperintensities involving the caudate nuclei bilaterally, bilateral hummel radiata, as well as the bilateral parietal and occipital cortex consistent with the patient's clinical diagnosis of anoxic encephalopathy. 2. No acute hemorrhage, midline shift, extra-axial fluid collection or abnormal enhancement. 3. Small fluid level within the right sphenoid sinus. Tray Santiago MD Cervical Spine CT 09/07/16 1800 Signed Impressions: Service Date/Time: Wednesday, September 07, 2016 18:06 - CONCLUSION: 1. No fracture or subluxation. 2. Scattered groundglass nodules throughout the upper lobes, nonspecific but can be seen with hypersensitivity pneumonitis. Artem Madera MD Assessment and Plan Assessment and Plan IMPRESSION Persistent fevers, possible sepsis, has increasing WBC - has had 3 sputum C/S witg MSSA, and normal CXR, has been Rx'd, and most likely colonization - has (+) UA, this could likely be source of sepsis, fevers - LFTs mildly up, exam unremarkable, has GB sludge on her GB US - no central line - if QUALITY TESTER fevers from his anoxia, once expects a more persistent pattern of fevers; which would be the same for drug fever Anoxic encephalopathy S/P arrest from hanging Respiratory failure S/P Rx for MSSA PNA IVC thrombus, has IVC filter RECOMMENDATION Follow C/S Continue Zosyn Continue vancomycin - if no MRSA, will stop Add Diflucan Adjust Abx once C/S finalized Follow temps Monitor progress If temps persists, will need to look at non-infectious etiology I will follow along with you Thank you for this consultation Discussed Condition With D/W RN Spoke with mother and grandmother Kimberly Moreland MD Sep 29, 2016 14:04
[2016-09-29] MEDS: FLUCONAZOLE 200 MG PREMIX BAG 100 ML IV SCH (15:06)
[2016-09-29] MEDS: WARFARIN SOD 2 MG TAB PO SCH (15:06)
[2016-09-29] MEDS: ACETAMINOPHEN 650 MG/20.3 ML UDC G-TUBE PRN (16:05)
[2016-09-30] VITALS (34 sets, daily range): BP systolic 90–110; BP diastolic 52–68; PULSE 82–112; RESP 16–29; TEMP 98.6–99.9; O2SAT 93–100
[2016-09-30] MEDS: PROPRANOLOL HCL 20 MG TAB G-TUBE SCH ×5 (01:03→23:56)
[2016-09-30] MEDS: SODIUM CHLORIDE 1 GRAM TAB G-TUBE SCH ×4 (01:03→23:56)
[2016-09-30] MEDS: clonazePAM 1 MG TAB G-TUBE SCH ×2 (03:16→15:28)
[2016-09-30] MEDS: PIPERACIL-TAZO 4.5 GM PREMIX 100 ML IV SCH ×4 (03:17→21:36)
[2016-09-30] MEDS: RESP: ALBUTEROL 2.5 MG/IPRATROPIUM 0.5 MG NEB (SCH) NEB ×4 (03:57→21:16)
[2016-09-30] MEDS: RESP: SODIUM CHLORIDE 3% 4 ML NEB NEB SCH ×4 (03:57→21:16)
[2016-09-30] MEDS: CHLORHEXIDINE GLUCONATE 2 % 1 PACK (2 CLOTHS) TOP SCH (04:00)
[2016-09-30 04:18] LABS: AUTOMATED NEUTROPHIL # 7.3 TH/MM3 (1.8-7.7); BASOPHIL # 0.1 TH/MM3 (0-0.2); BASOPHIL % 0.7 % (0.0-2.0); EOSINOPHIL # 0.6 TH/MM3 (0-0.4); EOSINOPHIL % 5.9 % (0.0-4.0); HEMATOCRIT 24.3 % (35.0-46.0); HEMO FLAGS DIFF FINAL; LYMPH % 12.6 % (9.0-44.0); LYMPHOCYTE # 1.3 TH/MM3 (1.0-4.8); MEAN CELL VOLUME 80.9 FL (80.0-100.0); MEAN CORPUSCULAR HEMOGLOBIN 26.7 PG (27.0-34.0); MONO % 10.3 % (0.0-8.0); NEUT % 70.5 % (16.0-70.0); PLATELET COUNT 474 TH/MM3 (150-450); RED CELL DISTRIBUTION WIDTH 13.5 % (11.6-17.2); WHITE BLOOD COUNT 10.4 TH/MM3 (4.0-11.0)
[2016-09-30 04:28] LABS: INTERNATIONAL NORMALIZED RATIO 1.2 RATIO; PROTHROMBIN TIME - PATIENT 13.2 SEC (9.8-11.6)
[2016-09-30] MEDS: METOCLOPRAMIDE HCL 10 MG/2 ML VIAL IV PUSH SCH ×3 (05:52→21:38)
[2016-09-30] MEDS: FONDAPARINUX SODIUM 7.5 MG/0.6 ML SYRINGE SQ SCH (05:52)
--- NOTE | 2016-09-30 06:28 | RADRPT ---
EXAM DATE/TIME: 09/30/2016 06:10 [facility] COMPARISON: CHEST SINGLE AP, September 29, 2016, 6:35. INDICATIONS : Respiratory distress. MEDICAL HISTORY : Tremors. Depression. Seizure. Suicide attempt. SURGICAL HISTORY : PEG placement. ENCOUNTER: Subsequent ACUITY: 3 weeks PAIN SCORE: Non-responsive. LOCATION: Bilateral chest FINDINGS: Tracheostomy in place. The lungs are symmetrically aerated and clear. The heart is normal size. No evidence of pneumothorax. CONCLUSION: The lungs are clear. Jose Armando Nathan MD on September 30, 2016 at 6:26 Board Certified Radiologist. This report was verified electronically.
--- NOTE | 2016-09-30 07:06 | HHI.CCPN ---
Subjective Remarks/Hospital Course 19 years old was brought in as a trauma alert. He has had to hanged herself and was found by her roommate. Unknown time of hanging. When fire department arrived patient was in asystole. CPR was started and one round of meds were given as per ACLS protocol. There was return of spontaneous circulation soon after that. Patient was brought in getting breaths by BV. She had a blood pressure and half way to arriving to the ER she started having some spontaneous respirations. She continued to be a GCS 3 when she arrived. She is admitted to critical care unit and therapeutic hypothermia protocol is initiated. 09/08/16: Patient achieving target temperature but developing severe shock. Levothroid had been increased to 30 mcg/m Mehdi-Synephrine added. Additional fluid boluses ordered currently on bicarbonate infusion additional one amp of bicarbonate given. Chest x-ray shows severe aspiration pneumonitis predominantly right lower lobe infiltrates. Zosyn 4.5 GM IV q8 started, give single dose of vanc 09/09/16: Patient is in the rewarming phase of hypothermia protocol. Once sedation was lightened and taken off the Nimbex, patient started developing tonic-clonic generalized seizure like activity. Bolused with a total of 6 mg Ativan in divided doses and restarted on Versed and propofol infusions. Loaded with Cerebyx 1 g and scheduled at 100 mg every 8 hours. Stat EEG pending. Neurology following 09/10/16: Remains on high dose of vasopressors, MRI brain shows evidence of anoxic brain injury. MRA neck bilateral common carotid narrowing. Start on aspirin get vascular surgery consult. No further seizure-like episodes noted. Pupils are equal bilaterally with slight withdrawal of right lower extremity to central pain. 09/11/16: Currently remains off all sedation in process. No noticeable improvement in neuro status, slight withdrawal x4. Aspirin started for bilateral common carotid narrowing-vascular surgery consult appreciated. Continue Cerebyx EEG sharp activity on eeg. MRI indicates diffuse anoxic brain injury with poor prognosis. EEG bihemispheric slowing and intermittent right central posterior sharp discharges which appear to be epileptiform. Dilantin level is therapeutic 09/12/16: Overnight had episodes myoclonus versus seizures. Neuro exam remains poor. No significant improvement. Low grade fever. Remains tachypneic on the ventilator. Restart propofol for vent synchrony 09/13/16: Neuro exam remains unchanged overnight. ICP monitor placed 09/12 for cerebral edema- ICP controlled with hyperosmolar therapy. 2 episodes of seizures vs myoclonus reported. Repeat EEG today. IVC filter placed 09/12/16 evening for large IVC thrombus. Unable to anticoagulate due to thrombocytopenia , cerebral edema-high risk of bleeding 09/14 EEG yesterday showed severe encephalopathy. ICP mainly 10-13 but intermittently spiked up to max of 22, improved with propofol bolus. Myoclonus noted with any tactile stimulation. 09/15 Comatose with myoclonus. ICP intermittently increased to 20, sometimes drifts down without intervention, sometimes improves with sedation. Extensor posturing. 09/16 Off continuous sedation. Comatose with myoclonus. Corneal reflex present on left, absent on right. ICP monitor removed today per NSG. 09/17: no significant neurologic improvement. off sedation. only intermittent ativan for myoclonus which improves symptoms. family meeting today, and family requests aggressive care, including trach/peg. 09/18: No change in neuro exam. Continued to spike high temperatures up to 102.5. CBC pending. I will discontinue Cerebyx start Keppra, check gallbladder ultrasound again and placed on empiric cefepime and single dose of vancomycin. Sputum culture Gram stain shows few GPC. On cooling blanket, and Tylenol. Motrin added. s/p Trach yesterday 09/19: no improvements or changes. sodium trending down. repeat sputum culture 09/17 growing staph aureus. KP pending. 09/20: No change in neuro exam. Overnight spike fever 103 again. Patient has bloody secretion from bilateral nares-she may have some acute sinusitis. Continue broad-spectrum antibiotics. Discontinue NG tube as the patient is getting PEG today 09/21: PEG yesterday. no changes. sputum again growing MSSA. 09/22: Colonization, no pneumonia. 09/23: No change in neuro status. 09/26: Halicat from floor after mucus plug. Back on vent. Sats marginal. 09/27: Remains on PRVC +8 ventilation. Resting in bed in no acute distress. Continues with generalized myoclonus. Withdraws right upper extremity only for me. RN stated left upper extremity. Gaze to right. Subjective: 09/28: PEEP decreased to 5. FiO2 decreased to 40%. Continues with generalized myoclonus. Vaguely withdrawals to noxious stimuli. Tmax 101.5. Tolerating tube feeds better. 09/29: Transferred from [facility] to [facility] yesterday night. No acute events overnight. Chest x-ray clear on my review. Tmax 102.5. WBC count pending 09/30: Fever trending down. WBC count has normalized. Hemoglobin trending down now 8. Will continue Arixtra without changing to Coumadin. Partial eye opening to central pain Objective Vital Signs Date Time Temp Pulse Resp B/P Pulse Ox O2 Delivery O2 Flow Rate FiO2 09/30/16 05:00 92 17 90/52 95 09/30/16 04:00 35 09/30/16 04:00 99.5 09/28/16 09:07 Ventilator 09/26/16 07:58 6.00 Intake and Output 09/29/16 09/29/16 09/29/16 07:59 15:59 23:59 Intake Total 149 ml 906 ml 490 ml Output Total 2800 ml 400 ml Balance 149 ml -1894 ml 90 ml Result Diagram: 09/30/16 0410 09/29/16 0615 Imaging Last Impressions Chest X-Ray 09/26/16 0000 Signed Impressions: Service Date/Time: Monday, September 26, 2016 10:39 - CONCLUSION: Stable appearance with mild infrahilar opacity again noted. Seth Breen MD Liver Ultrasound 09/18/16 0000 Signed Impressions: Service Date/Time: Sunday, September 18, 2016 09:27 - CONCLUSION: 1. There is sludge within the gallbladder. No other findings are present to indicate acute cholecystitis. 2. Mild splenomegaly. 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 This is nonocclusive. A retrievable IVC filter was deployed below the main hepatic veins but it was necessary to cross an accessory right hepatic vein. Jose Armando Jackson Jr., MD Head CT 09/12/16 0000 Signed Impressions: Service Date/Time: Monday, September 12, 2016 09:29 - CONCLUSION: Mild loss of lemos matter definition that can be seen with increasing intracranial pressure. Ricki Cavazos MD FACR Neck Magnetic Resonance Angiography 09/09/16 0000 Signed Impressions: Service Date/Time: August 16:02 - CONCLUSION: 1. Moderate to severe smooth narrowing of the left common carotid artery and also moderate narrowing of the proximal right common carotid artery as well as narrowing of both proximal vertebral arteries likely related to recent hanging. Etiology could be related to vasospasm or recent extrinsic prolonged compression. The distal internal carotid arteries and vertebral artery have more normal calibers. Findings called to Dr. Bhatt at the time of dictation. Gideon Brown MD Cervical Spine MRI 09/09/16 0000 Signed Impressions: Service Date/Time: August 16:02 - CONCLUSION: 1. Very minimal degenerative disc disease at C5-6. 2. No acute fracture or prevertebral soft tissue swelling. 3. No focal cervical cord abnormality. Tray Santiago MD Brain MRI 09/09/16 0000 Signed Impressions: Service Date/Time: August 16:02 - CONCLUSION: 1. Diffuse FLAIR-weighted hyperintensities involving the caudate nuclei bilaterally, bilateral hummel radiata, as well as the bilateral parietal and occipital cortex consistent with the patient's clinical diagnosis of anoxic encephalopathy. 2. No acute hemorrhage, midline shift, extra-axial fluid collection or abnormal enhancement. 3. Small fluid level within the right sphenoid sinus. Tray Santiago MD Cervical Spine CT 09/07/16 1800 Signed Impressions: Service Date/Time: Wednesday, September 07, 2016 18:06 - CONCLUSION: 1. No fracture or subluxation. 2. Scattered groundglass nodules throughout the upper lobes, nonspecific but can be seen with hypersensitivity pneumonitis. Artem Madera MD Objective Remarks GENERAL: 20-year-old female, resting in bed SKIN: Warm and dry. HEAD: Normocephalic. Pupils are 3 mm bilaterally. EYES: No scleral icterus. No injection or drainage. NECK: trachea midline. trach site clean, dry. CARDIOVASCULAR: The cardiac, RRR. S1, S2 no S4. Without murmur. RESPIRATORY: Unlabored. equal chest rise. clear, no wheezes or crackles. GASTROINTESTINAL: Abdomen soft, non-tender, distended. G-tube is clean dry and intact MUSCULOSKELETAL: Trace edema NEURO: Pupils are 4 mm. Disconjugate right gaze. Opens eyes to noxious stimuli, eye are rolled up. To deep central and peripheral noxious stimuli withdraws right upper extremity, collin lower extremity. General myoclonic movements on stimulation. A/P Assessment and Plan NEURO/PSYCH: Severe anoxic brain injury Collin common carotid narrowing Attempted suicide by hanging Seizure, Myoclonus Depression - MRI shows evidence of diffuse anoxic brain injury including weighted hyperintensity bilateral caudate, bilateral CR, bilateral occipital and parietal lobes. - MRA neck bilateral common carotid narrowing-vascular surgery consulted, no intervention. started aspirin 09/10 - CT 09/12-loss salguero/white matter differentiation c/w cerebral edema. ICP monitor placed 09/12 , removed 09/16. - EEG 09/10 bilateral sharp activity, on Dilantin. Level therapeutic 09/12. DCd Dilantin 09/18/16 due high fever, started Keppra - EEG 09/11 Encephalopathy, no sz. - EEG 09/13severe encephalopathy. (delta waves) - s/p induced hypothermia. - Neurology Dr. Valdez has followed. He states prognosis is poor and recommended comfort measures. - NSG Dr. José states poor prognosis, recommends comfort care. - Toxicology negative - Clonazepam 1 mg by PEG every 8 hours scheduled for clonus-reduce to 0.5 mg q12 (09/30) - Ativan 1 mg IV every hours for symptomatic control for severe myoclonus. - Oxycodone 5mg every 6 hours scheduled for pain-change to PRN (09/30. Fentanyl prn CV: Status postcardiac arrest Hemodynamic stable - Currently not requiring vasopressors and/or anti-hypertensives. Resp: Vent dependent hypoxemic respiratory failure Pre-hospital Aspiration pneumonitis Mucous plugging - [facility], /02/18/39 - ventilator bundle. - Start CPAP trials and TP is if tolerated - Albuterol/Atrovent aerosols every 6 hours and albuterol aerosols when necessary At hypertonic saline for mucolytic 5 days s/p trach 09/17/16. Vijay Jackson and Kunal GI/FEN: Transaminitis most likely from shock, resolved. Hyponatremia - Tube feedings Jevity 1.5 at 50 L per hour per nutrition recommendations. - s/p PEG 09/20 - repeat GB u/s without signs of cholecystitis 09/18 - Continue salt tabs 1gm po q8hr. - Liver ultrasound 09/12large nonocclusive thrombus and IVC. Renal/: Fluid overload- persistent. -Monitor BUN/creatinine daily. - Inaccurate I/O due to lack Benjamin. ID: Fever, sepsis Blood urine cultures pending 09/27 Sputum with MSSA 09/08. 09/[address] on Zosyn and vanc 09/29 till cultures are back, consulted ID [place] - Zosyn 4.5 g IV every 6 hours 09/08-09/15 .fever may be secondary to DVT. - sputum culture 09/17 staph aureus Ancef 2gm iv q8h, total 10 day course of abx for recurrent MSSA pna. As needed acetaminophen Endo: - Sliding-scale insulin if needed HEME: Leukocytosis Thrombocytosis Normocytic anemia Large IVC thrombus - Monitor CBC CMP coags. - IVC filter placed 09/12 due to inability to anticoagulate (thrombocytopenia) and cerebral edema. - Now platelets improved, on fondaparinux 7.5 mg daily from 09/18/16. 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 KP negative. - continue Arixtra, will not start Coumadin until hemoglobin stable DVT GI prophylaxis - IVC filter in place. Continue lansoprazole.fondaparinux 7.5 mg daily started 09/18/16 Lines: - PIV Level III follow-up Lyndon Bhatt MD Sep 30, 2016 07:06
[2016-09-30] MEDS: ARTIFICIAL TEARS OPTH SOLN 15 ML BTL EACH EYE SCH ×2 (09:50→21:37)
[2016-09-30] MEDS: levETIRAcetam 500 MG/5 ML UDC NG SCH ×2 (09:52→21:38)
[2016-09-30] MEDS: BISACODYL 10 MG SUPP RECTAL SCH (09:52)
[2016-09-30] MEDS: LANSOPRAZOLE SOLUTAB 30 MG TAB NG SCH (09:52)
[2016-09-30] MEDS: DOCUSATE SODIUM 100 MG/10 ML UDC G-TUBE SCH ×2 (09:52→21:37)
[2016-09-30] MEDS: POTASSIUM CHLORIDE 25 MEQ EFFERVESCENT TAB G-TUBE SCH (09:52)
[2016-09-30] MEDS ORDERED: WARFARIN SOD 6 MG TAB PO ONE (16:00)
[2016-09-30] MEDS: FLUCONAZOLE 200 MG PREMIX BAG 100 ML IV SCH (16:27)
[2016-09-30] MEDS: ACETAMINOPHEN 650 MG/20.3 ML UDC G-TUBE PRN (23:55)
[2016-10-01] VITALS (34 sets, daily range): BP systolic 93–119; BP diastolic 52–83; PULSE 80–115; RESP 16–36; TEMP 98–100.5; O2SAT 93–100
[2016-10-01] MEDS: PIPERACIL-TAZO 4.5 GM PREMIX 100 ML IV SCH ×4 (03:33→21:06)
[2016-10-01] MEDS: clonazePAM 1 MG TAB G-TUBE SCH ×2 (03:33→14:25)
[2016-10-01] MEDS: RESP: SODIUM CHLORIDE 3% 4 ML NEB NEB SCH ×4 (03:51→21:51)
[2016-10-01] MEDS: RESP: ALBUTEROL 2.5 MG/IPRATROPIUM 0.5 MG NEB (SCH) NEB ×4 (03:51→21:51)
[2016-10-01] MEDS: CHLORHEXIDINE GLUCONATE 2 % 1 PACK (2 CLOTHS) TOP SCH (04:00)
[2016-10-01 04:51] LABS: INTERNATIONAL NORMALIZED RATIO 1.4 RATIO; PROTHROMBIN TIME - PATIENT 15.4 SEC (9.8-11.6)
[2016-10-01] MEDS: FONDAPARINUX SODIUM 7.5 MG/0.6 ML SYRINGE SQ SCH (06:31)
[2016-10-01] MEDS: PROPRANOLOL HCL 20 MG TAB G-TUBE SCH ×3 (06:31→16:11)
[2016-10-01] MEDS: METOCLOPRAMIDE HCL 10 MG/2 ML VIAL IV PUSH SCH ×3 (06:34→21:04)
--- NOTE | 2016-10-01 06:45 | HHI.CCPN ---
Subjective Remarks/Hospital Course 19 years old was brought in as a trauma alert. He has had to hanged herself and was found by her roommate. Unknown time of hanging. When fire department arrived patient was in asystole. CPR was started and one round of meds were given as per ACLS protocol. There was return of spontaneous circulation soon after that. Patient was brought in getting breaths by BV. She had a blood pressure and half way to arriving to the ER she started having some spontaneous respirations. She continued to be a GCS 3 when she arrived. She is admitted to critical care unit and therapeutic hypothermia protocol is initiated. 09/08/16: Patient achieving target temperature but developing severe shock. Levothroid had been increased to 30 mcg/m Mehdi-Synephrine added. Additional fluid boluses ordered currently on bicarbonate infusion additional one amp of bicarbonate given. Chest x-ray shows severe aspiration pneumonitis predominantly right lower lobe infiltrates. Zosyn 4.5 GM IV q8 started, give single dose of vanc 09/09/16: Patient is in the rewarming phase of hypothermia protocol. Once sedation was lightened and taken off the Nimbex, patient started developing tonic-clonic generalized seizure like activity. Bolused with a total of 6 mg Ativan in divided doses and restarted on Versed and propofol infusions. Loaded with Cerebyx 1 g and scheduled at 100 mg every 8 hours. Stat EEG pending. Neurology following 09/10/16: Remains on high dose of vasopressors, MRI brain shows evidence of anoxic brain injury. MRA neck bilateral common carotid narrowing. Start on aspirin get vascular surgery consult. No further seizure-like episodes noted. Pupils are equal bilaterally with slight withdrawal of right lower extremity to central pain. 09/11/16: Currently remains off all sedation in process. No noticeable improvement in neuro status, slight withdrawal x4. Aspirin started for bilateral common carotid narrowing-vascular surgery consult appreciated. Continue Cerebyx EEG sharp activity on eeg. MRI indicates diffuse anoxic brain injury with poor prognosis. EEG bihemispheric slowing and intermittent right central posterior sharp discharges which appear to be epileptiform. Dilantin level is therapeutic 09/12/16: Overnight had episodes myoclonus versus seizures. Neuro exam remains poor. No significant improvement. Low grade fever. Remains tachypneic on the ventilator. Restart propofol for vent synchrony 09/13/16: Neuro exam remains unchanged overnight. ICP monitor placed 09/12 for cerebral edema- ICP controlled with hyperosmolar therapy. 2 episodes of seizures vs myoclonus reported. Repeat EEG today. IVC filter placed 09/12/16 evening for large IVC thrombus. Unable to anticoagulate due to thrombocytopenia , cerebral edema-high risk of bleeding 09/14 EEG yesterday showed severe encephalopathy. ICP mainly 10-13 but intermittently spiked up to max of 22, improved with propofol bolus. Myoclonus noted with any tactile stimulation. 09/15 Comatose with myoclonus. ICP intermittently increased to 20, sometimes drifts down without intervention, sometimes improves with sedation. Extensor posturing. 09/16 Off continuous sedation. Comatose with myoclonus. Corneal reflex present on left, absent on right. ICP monitor removed today per NSG. 09/17: no significant neurologic improvement. off sedation. only intermittent ativan for myoclonus which improves symptoms. family meeting today, and family requests aggressive care, including trach/peg. 09/18: No change in neuro exam. Continued to spike high temperatures up to 102.5. CBC pending. I will discontinue Cerebyx start Keppra, check gallbladder ultrasound again and placed on empiric cefepime and single dose of vancomycin. Sputum culture Gram stain shows few GPC. On cooling blanket, and Tylenol. Motrin added. s/p Trach yesterday 09/19: no improvements or changes. sodium trending down. repeat sputum culture 09/17 growing staph aureus. KP pending. 09/20: No change in neuro exam. Overnight spike fever 103 again. Patient has bloody secretion from bilateral nares-she may have some acute sinusitis. Continue broad-spectrum antibiotics. Discontinue NG tube as the patient is getting PEG today 09/21: PEG yesterday. no changes. sputum again growing MSSA. 09/22: Colonization, no pneumonia. 09/23: No change in neuro status. 09/26: Halicat from floor after mucus plug. Back on vent. Sats marginal. 09/27: Remains on PRVC +8 ventilation. Resting in bed in no acute distress. Continues with generalized myoclonus. Withdraws right upper extremity only for me. RN stated left upper extremity. Gaze to right. Subjective: 09/28: PEEP decreased to 5. FiO2 decreased to 40%. Continues with generalized myoclonus. Vaguely withdrawals to noxious stimuli. Tmax 101.5. Tolerating tube feeds better. 09/29: Transferred from [facility] to [place] ICU yesterday night. No acute events overnight. Chest x-ray clear on my review. Tmax 102.5. WBC count pending 09/30: Fever trending down. WBC count has normalized. Hemoglobin trending down now 8. Will continue Arixtra without changing to Coumadin. Partial eye opening to central pain 10/01: Tolerated CPAP for approximately 4 hours yesterday. Low-grade fever 100.5. No other acute events overnight. Having bowel movement Objective Vital Signs Date Time Temp Pulse Resp B/P Pulse Ox O2 Delivery O2 Flow Rate FiO2 10/01/16 05:00 110 19 102/56 96 10/01/16 04:01 35 10/01/16 04:00 98.9 09/30/16 13:51 T-piece Intake and Output 09/30/16 09/30/16 10/01/16 08:00 16:00 00:00 Intake Total 968 ml Output Total 650 ml 475 ml Balance 318 ml -475 ml Result Diagram: 09/30/16 0410 09/29/16 0615 Other Results Microbiology Date/Time Procedure Status Source Growth 09/30/16 11:30 Stool Occult Blood (JULIANNE) - Final Complete Stool Stool HEMOCCULT NEGATIVE Imaging Last Impressions Chest X-Ray 09/26/16 0000 Signed Impressions: Service Date/Time: Monday, September 26, 2016 10:39 - CONCLUSION: Stable appearance with mild infrahilar opacity again noted. Seth Breen MD Liver Ultrasound 09/18/16 0000 Signed Impressions: Service Date/Time: Sunday, September 18, 2016 09:27 - CONCLUSION: 1. There is sludge within the gallbladder. No other findings are present to indicate acute cholecystitis. 2. Mild splenomegaly. 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 This is nonocclusive. A retrievable IVC filter was deployed below the main hepatic veins but it was necessary to cross an accessory right hepatic vein. Jose Armando Jackson Jr., MD Head CT 7/30/17 0000 Signed Impressions: Service Date/Time: Monday, September 12, 2016 09:29 - CONCLUSION: Mild loss of lemos matter definition that can be seen with increasing intracranial pressure. Ricki Cavazos MD FACR Neck Magnetic Resonance Angiography 09/09/16 0000 Signed Impressions: Service Date/Time: August 16:02 - CONCLUSION: 1. Moderate to severe smooth narrowing of the left common carotid artery and also moderate narrowing of the proximal right common carotid artery as well as narrowing of both proximal vertebral arteries likely related to recent hanging. Etiology could be related to vasospasm or recent extrinsic prolonged compression. The distal internal carotid arteries and vertebral artery have more normal calibers. Findings called to Dr. Bhatt at the time of dictation. Gideon Brown MD Cervical Spine MRI 09/09/16 0000 Signed Impressions: Service Date/Time: August 16:02 - CONCLUSION: 1. Very minimal degenerative disc disease at C5-6. 2. No acute fracture or prevertebral soft tissue swelling. 3. No focal cervical cord abnormality. Tray Santiago MD Brain MRI 09/09/16 0000 Signed Impressions: Service Date/Time: August 16:02 - CONCLUSION: 1. Diffuse FLAIR-weighted hyperintensities involving the caudate nuclei bilaterally, bilateral hummel radiata, as well as the bilateral parietal and occipital cortex consistent with the patient's clinical diagnosis of anoxic encephalopathy. 2. No acute hemorrhage, midline shift, extra-axial fluid collection or abnormal enhancement. 3. Small fluid level within the right sphenoid sinus. Tray Santiago MD Cervical Spine CT 09/07/16 1800 Signed Impressions: Service Date/Time: Wednesday, September 07, 2016 18:06 - CONCLUSION: 1. No fracture or subluxation. 2. Scattered groundglass nodules throughout the upper lobes, nonspecific but can be seen with hypersensitivity pneumonitis. Artem Madera MD Objective Remarks GENERAL: 20-year-old female, resting in bed SKIN: Warm and dry. HEAD: Normocephalic. Pupils are 4 mm bilaterally, sluggish but reactive. EYES: No scleral icterus. No injection or drainage. NECK: trachea midline. trach site clean, dry. CARDIOVASCULAR: The cardiac, RRR. S1, S2 no S4. Without murmur. RESPIRATORY: Unlabored. equal chest rise. clear, no wheezes or crackles. GASTROINTESTINAL: Abdomen soft, non-tender, distended. G-tube is clean dry and intact MUSCULOSKELETAL: Trace edema NEURO: Pupils are 4 mm, reactive. Opens eyes to noxious stimuli, but eyes are rolled up, or slow lateral rowing movement. To deep central and peripheral noxious stimuli, slightly withdraws right upper extremity, collin lower extremity. General myoclonic movements on stimulation. A/P Assessment and Plan NEURO/PSYCH: Severe anoxic brain injury Collin common carotid narrowing Attempted suicide by hanging Seizure, Myoclonus Depression - MRI shows evidence of diffuse anoxic brain injury including weighted hyperintensity bilateral caudate, bilateral Hummel radiata, bilateral occipital and parietal lobes. - MRA neck bilateral common carotid narrowing-vascular surgery consulted, no intervention. started aspirin 09/10 - CT 09/12-loss salguero/white matter differentiation c/w cerebral edema. ICP monitor 09/12- 09/16. - EEG 09/10 bilateral sharp activity, on Dilantin. Level therapeutic 09/12. DCd Dilantin 09/18/16 due high fever, started Keppra - EEG 09/11 Encephalopathy, no sz. - EEG 09/13severe encephalopathy. (delta waves) - s/p induced hypothermia. - Neurology Dr. Valdez has followed. He states prognosis is poor and recommended comfort measures. - NSG Dr. José states poor prognosis, recommends comfort care. - Toxicology negative - Clonazepam 0.5 mg by PEG every 12 hours scheduled for clonus - Ativan 1 mg IV every hours for symptomatic control for severe myoclonus. - Oxycodone 5mg every 6 hours PRN. Fentanyl prn CV: Status postcardiac arrest Hemodynamic stable - Currently not requiring vasopressors and/or anti-hypertensives. Resp: Vent dependent hypoxemic respiratory failure Pre-hospital Aspiration pneumonitis Mucous plugging - PRVC, /02/18/39 - ventilator bundle. - Tolerated CPAP approximately 4 hours yesterday. Attempt T piece for 2 hours today - Albuterol/Atrovent aerosols every 6 hours and albuterol aerosols when necessary At hypertonic saline for mucolytic 5 days s/p trach 09/17/16. Vijay Jackson and Kunal GI/FEN: Transaminitis most likely from shock, resolved. Hyponatremia - Tube feedings Jevity 1.5 at 50 L per hour per nutrition recommendations. - s/p PEG 09/20 - repeat GB u/s without signs of cholecystitis 09/18 - Continue salt tabs 1gm po q8hr. - Liver ultrasound 09/12large nonocclusive thrombus and IVC. Renal/: Fluid overload- persistent. -Monitor BUN/creatinine daily. - Inaccurate I/O due to lack Benjamin. ID: Fever, sepsis Blood urine cultures 09/27 negative to date Sputum with MSSA 09/08. 09/27 normal julio Placed on Zosyn and vanc 09/29 till cultures are back, ID [place]. DC Vnac today 10/01 Fever May be secondary to DVT and neuro - Zosyn 4.5 g IV every 6 hours 09/08-09/15 .fever may be secondary to DVT. - sputum culture 09/17 staph aureus Ancef 2gm iv q8h, total 10 day course of abx for recurrent MSSA pna. As needed acetaminophen Endo: - Sliding-scale insulin if needed HEME: Leukocytosis Thrombocytosis Normocytic anemia Large IVC thrombus - Monitor CBC CMP coags. - IVC filter placed 09/12 due to inability to anticoagulate (thrombocytopenia) and cerebral edema. - Now platelets improved, on fondaparinux 7.5 mg daily from 09/18/16. 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 KP negative. - continue Arixtra, will not start Coumadin until hemoglobin stable DVT GI prophylaxis - IVC filter in place. Continue lansoprazole.fondaparinux 7.5 mg daily started 09/18/16 Lines: - PIV Level III follow-up Lyndon Bhatt MD Oct 01, 2016 06:45
[2016-10-01] MEDS: ARTIFICIAL TEARS OPTH SOLN 15 ML BTL EACH EYE SCH ×2 (08:27→21:06)
[2016-10-01] MEDS: POTASSIUM CHLORIDE 25 MEQ EFFERVESCENT TAB G-TUBE SCH (08:27)
[2016-10-01] MEDS: SODIUM CHLORIDE 1 GRAM TAB G-TUBE SCH ×2 (08:27→16:00)
[2016-10-01] MEDS: LANSOPRAZOLE SOLUTAB 30 MG TAB NG SCH (08:27)
[2016-10-01] MEDS: DOCUSATE SODIUM 100 MG/10 ML UDC G-TUBE SCH ×2 (08:27→21:05)
[2016-10-01] MEDS: BISACODYL 10 MG SUPP RECTAL SCH (08:28)
[2016-10-01] MEDS: levETIRAcetam 500 MG/5 ML UDC NG SCH ×2 (08:42→21:05)
[2016-10-01] MEDS ORDERED: WARFARIN SOD 7.5 MG TAB PO ONE (14:00)
[2016-10-01] MEDS: FLUCONAZOLE 200 MG PREMIX BAG 100 ML IV SCH (14:26)
--- NOTE | 2016-10-01 15:42 | HHI.IDPN ---
Subjective Subjective Remarks 20 year old admitted after she was found hanging. Has significant anoxic injury. Has trach and PEG. Has been Rxd for MSSA in sputum. Recurrent fevers. Remains on the vent. NO ssignificant neurologic improvement Notes reviewed Temps low grade On the vent No interaction Did 4 hours CPAP UC negative BC negative CXR clear Antibiotics Zosyn Diflucan Lines PIV Past Medical History Previous UTI ?depression S/P trach and PEG Allergies: Coded Allergies: No Known Allergies (Unverified , 09/07/16) Objective . Vital Signs Date Time Temp Pulse Resp B/P Pulse Ox O2 Delivery O2 Flow Rate FiO2 10/01/16 14:40 35 10/01/16 14:25 93 35 10/01/16 14:00 106 36 107/81 96 10/01/16 13:00 106 28 119/52 97 10/01/16 12:00 98.7 96 26 107/66 95 10/01/16 12:00 90 10/01/16 12:00 35 10/01/16 11:00 90 20 119/78 97 10/01/16 10:45 100 35 10/01/16 10:00 95 20 105/64 97 10/01/16 10:00 82 10/01/16 09:00 90 18 107/66 97 10/01/16 08:12 97 35 10/01/16 08:12 35 10/01/16 08:00 90 10/01/16 08:00 35 10/01/16 08:00 98.6 90 20 107/66 96 10/01/16 07:00 98.6 93 20 102/61 96 10/01/16 06:00 82 10/01/16 06:00 82 18 109/61 97 10/01/16 05:00 110 19 102/56 96 10/01/16 04:01 96 35 10/01/16 04:00 98.9 80 16 93/58 99 10/01/16 04:00 35 10/01/16 04:00 106 10/01/16 03:00 90 27 103/52 96 10/01/16 02:00 90 10/01/16 02:00 90 17 100/53 96 10/01/16 01:02 96 35 10/01/16 01:00 96 24 107/59 98 10/01/16 00:02 96 23 110/58 96 10/01/16 00:00 100.5 96 23 110/58 96 10/01/16 00:00 35 10/01/16 00:00 96 09/30/16 23:00 96 22 109/60 95 09/30/16 22:03 97 35 09/30/16 22:00 96 09/30/16 22:00 94 22 109/62 97 09/30/16 21:00 90 17 102/54 97 09/30/16 20:00 94 09/30/16 20:00 92 21 106/57 97 09/30/16 20:00 35 09/30/16 19:40 98 35 09/30/16 19:00 99.9 92 21 101/53 96 09/30/16 18:00 84 19 110/64 100 09/30/16 18:00 82 09/30/16 17:02 94 20 100/54 95 09/30/16 16:10 98 35 09/30/16 16:10 35 09/30/16 16:00 35 09/30/16 16:00 96 09/30/16 16:00 99.9 94 20 105/60 100 09/30/16 09/30/16 10/01/16 15:00 23:00 07:00 Intake Total 968 ml 250 ml Output Total 650 ml 475 ml Balance 318 ml -475 ml 250 ml Intake IV Total 128 ml 250 ml Tube Feeding 840 ml Output Urine Total 650 ml 475 ml # Voids 1 # Bowel Movements 1 1 . Laboratory Tests Test 09/30/16 10/01/16 04:10 04:07 White Blood Count 10.4 TH/MM3 Red Blood Count 3.00 MIL/MM3 Hemoglobin 8.0 GM/DL 8.1 GM/DL Hematocrit 24.3 % Mean Corpuscular Volume 80.9 FL Mean Corpuscular Hemoglobin 26.7 PG Mean Corpuscular Hemoglobin 33.0 % Concent Red Cell Distribution Width 13.5 % Platelet Count 474 TH/MM3 Mean Platelet Volume 6.9 FL Neutrophils (%) (Auto) 70.5 % Lymphocytes (%) (Auto) 12.6 % Monocytes (%) (Auto) 10.3 % Eosinophils (%) (Auto) 5.9 % Basophils (%) (Auto) 0.7 % Neutrophils # (Auto) 7.3 TH/MM3 Lymphocytes # (Auto) 1.3 TH/MM3 Monocytes # (Auto) 1.1 TH/MM3 Eosinophils # (Auto) 0.6 TH/MM3 Basophils # (Auto) 0.1 TH/MM3 CBC Comment DIFF FINAL Differential Comment Microbiology Date/Time Procedure Status Source Growth 09/29/16 08:08 Urine Culture - Final Complete Urine Catheterized Urine NO GROWTH IN 48 HOURS. 09/30/16 11:30 Stool Occult Blood (JULIANNE) - Final Complete Stool Stool HEMOCCULT NEGATIVE Imaging Last 72 hours Impressions Chest X-Ray 09/30/16599 Signed Impressions: Service Date/Time: September 06:10 - CONCLUSION: The lungs are clear. Jose Armando Nathan MD Chest X-Ray 09/29/16599 Signed Impressions: Service Date/Time: Thursday, September 29, 2016 06:35 - CONCLUSION: Lungs are grossly clear. Jarred Kerr MD Physical Exam GENERAL: Patient is a young, thin, well-developed CF, unresponsive on the vent, not in respiratory distress. SKIN: Warm and dry. No generalized rash, no ecchymoses and no evidence of embolic lesions. HEAD: Atraumatic. Normocephalic. No temporal wasting, or tenderness. EYES: [place] conjunctiva. No petechia or hemorrhage. Pupils equal, round and reactive to light. No scleral icterus. No injection or drainage. She has an upward gaze EARS, NOSE AND THROAT: Nose without bleeding or purulent nasal discharge. Slightly dry caroline mucosa, unable to examine the mouth completely. NECK: Supple, no rigidity. Tracheostomy site looks ok. CARDIOVASCULAR: Regular rate and rhythm. No murmurs, rubs or gallops heard RESPIRATORY: Rhonchi on R ABDOMEN: Soft, flat, not distended, no reaction to deep palpation. PEG site looks okay. Bowel sounds present and normoactive. No organomegaly. EXTREMITIES: No clubbing, cyanosis, or edema. No joint effusion. Well perfused and warm. NEUROLOGICAL: Unresponsive. Has an upward gaze. PSYCHIATRIC: Unable to asses LINE: PIV with no evidence of infection : Benjamin in place, with some sediment Assessment & Plan Remarks IMPRESSION Persistent fevers, possible sepsis, has increasing WBC - has had 3 sputum C/S witg MSSA, and normal CXR, has been Rx'd, and most likely colonization - has (+) UA, this could likely be source of sepsis, fevers; C/S negative ; ?if patient got Abx dose before urine sent - LFTs mildly up, exam unremarkable, has GB sludge on her GB US - no central line - if [employer] fevers from his anoxia, one expects a more persistent pattern of fevers; which would be the same for drug fever Anoxic encephalopathy S/P arrest from hanging Respiratory failure S/P Rx for MSSA PNA IVC thrombus, has IVC filter RECOMMENDATION Follow C/S Continue Zosyn Stop Diflucan Adjust Abx once C/S finalized Follow temps Monitor progress If nothing new on C/S, will use Levaquin to complete UTI Rx Spoke with grandmother Kimberly Moreland MD Oct 01, 2016 15:42
[2016-10-01] MEDS ORDERED: WARFARIN SOD 5 MG TAB PO SCH (16:00)
[2016-10-02] VITALS (34 sets, daily range): BP systolic 94–111; BP diastolic 54–76; PULSE 90–102; RESP 19–33; TEMP 98.2–99.8; O2SAT 92–100
[2016-10-02] MEDS: SODIUM CHLORIDE 1 GRAM TAB G-TUBE SCH ×3 (00:57→22:16)
[2016-10-02] MEDS: PROPRANOLOL HCL 20 MG TAB G-TUBE SCH ×4 (00:58→17:33)
[2016-10-02] MEDS: clonazePAM 1 MG TAB G-TUBE SCH ×2 (01:50→13:29)
[2016-10-02] MEDS: PIPERACIL-TAZO 4.5 GM PREMIX 100 ML IV SCH ×4 (01:50→22:17)
[2016-10-02] MEDS: RESP: ALBUTEROL 2.5 MG/IPRATROPIUM 0.5 MG NEB (SCH) NEB ×4 (03:11→22:24)
[2016-10-02] MEDS: RESP: SODIUM CHLORIDE 3% 4 ML NEB NEB SCH ×3 (03:11→15:55)
[2016-10-02] MEDS: CHLORHEXIDINE GLUCONATE 2 % 1 PACK (2 CLOTHS) TOP SCH (04:00)
[2016-10-02] MEDS: FONDAPARINUX SODIUM 7.5 MG/0.6 ML SYRINGE SQ SCH (05:22)
[2016-10-02] MEDS: METOCLOPRAMIDE HCL 10 MG/2 ML VIAL IV PUSH SCH (05:28)
[2016-10-02 05:38] LABS: AUTOMATED NEUTROPHIL # 9.4 TH/MM3 (1.8-7.7); BASOPHIL # 0.5 TH/MM3 (0-0.2); BASOPHIL % 4.2 % (0.0-2.0); EOSINOPHIL # 0.3 TH/MM3 (0-0.4); EOSINOPHIL % 2.6 % (0.0-4.0); LYMPH % 11.2 % (9.0-44.0); LYMPHOCYTE # 1.4 TH/MM3 (1.0-4.8); MEAN CELL VOLUME 80.1 FL (80.0-100.0); MEAN CORPUSCULAR HEMOGLOBIN 26.3 PG (27.0-34.0); MEAN CORPUSCULAR HGB CONC 32.8 % (32.0-36.0); MONO % 8.3 % (0.0-8.0); NEUT % 73.7 % (16.0-70.0); PLATELET COUNT 486 TH/MM3 (150-450); RED BLOOD COUNT 3.25 MIL/MM3 (4.00-5.30); RED CELL DISTRIBUTION WIDTH 13.7 % (11.6-17.2); WHITE BLOOD COUNT 12.7 TH/MM3 (4.0-11.0)
[2016-10-02 05:40] LABS: HEMO FLAGS DIFF FINAL
[2016-10-02 05:46] LABS: CHLORIDE 107 MEQ/L (98-107); POTASSIUM 3.7 MEQ/L (3.5-5.1); SODIUM (NA) 140 MEQ/L (136-145)
[2016-10-02 05:48] LABS: INTERNATIONAL NORMALIZED RATIO 2.4 RATIO
[2016-10-02 05:50] LABS: ANION GAP 7 MEQ/L (5-15); BICARBONATE 26.5 MEQ/L (21.0-32.0); BLOOD UREA NITROGEN 17 MG/DL (7-18); MAGNESIUM 1.9 MG/DL (1.5-2.5)
[2016-10-02 05:52] LABS: ALT (GPT) 64 U/L (9-42)
[2016-10-02 05:53] LABS: AST (GOT) 70 U/L (16-38); GLOMERULAR FILTRATION RATE 134 ML/MIN (>89)
[2016-10-02 05:54] LABS: TOTAL BILIRUBIN ADULT 0.2 MG/DL (0.2-1.0)
[2016-10-02 05:55] LABS: ALKALINE PHOSPHATASE 94 U/L (45-117)
--- NOTE | 2016-10-02 06:38 | RADRPT ---
EXAM DATE/TIME: 10/02/2016 06:20 [place] COMPARISON: No previous studies available for comparison. INDICATIONS : Shortness of breath. MEDICAL HISTORY : Tremors. Depression. Seizure. Suicide attempt SURGICAL HISTORY : PEG placement ENCOUNTER: Subsequent ACUITY: 3 weeks PAIN SCORE: Non-responsive. LOCATION: Bilateral chest FINDINGS: A single view of the chest demonstrates tracheostomy in satisfactory position. Inferior vena cava dennis ter noted. Mild hazy and dependent opacity in the lungs appears slightly improved from September 30. No new infiltrate or effusion. CONCLUSION: 1. Slight improvement in airspace disease on the right since September 30. Tracheostomy in satisfactory position. Gideon Brown MD on October 02, 2016 at 6:34 Board Certified Radiologist. This report was verified electronically.
--- NOTE | 2016-10-02 07:19 | HHI.CCPN ---
Subjective Remarks/Hospital Course 19 years old was brought in as a trauma alert. He has had to hanged herself and was found by her roommate. Unknown time of hanging. When fire department arrived patient was in asystole. CPR was started and one round of meds were given as per ACLS protocol. There was return of spontaneous circulation soon after that. Patient was brought in getting breaths by BV. She had a blood pressure and half way to arriving to the ER she started having some spontaneous respirations. She continued to be a GCS 3 when she arrived. She is admitted to critical care unit and therapeutic hypothermia protocol is initiated. 09/08/16: Patient achieving target temperature but developing severe shock. Levothroid had been increased to 30 mcg/m Mehdi-Synephrine added. Additional fluid boluses ordered currently on bicarbonate infusion additional one amp of bicarbonate given. Chest x-ray shows severe aspiration pneumonitis predominantly right lower lobe infiltrates. Zosyn 4.5 GM IV q8 started, give single dose of vanc 09/09/16: Patient is in the rewarming phase of hypothermia protocol. Once sedation was lightened and taken off the Nimbex, patient started developing tonic-clonic generalized seizure like activity. Bolused with a total of 6 mg Ativan in divided doses and restarted on Versed and propofol infusions. Loaded with Cerebyx 1 g and scheduled at 100 mg every 8 hours. Stat EEG pending. Neurology following 09/10/16: Remains on high dose of vasopressors, MRI brain shows evidence of anoxic brain injury. MRA neck bilateral common carotid narrowing. Start on aspirin get vascular surgery consult. No further seizure-like episodes noted. Pupils are equal bilaterally with slight withdrawal of right lower extremity to central pain. 09/11/16: Currently remains off all sedation in process. No noticeable improvement in neuro status, slight withdrawal x4. Aspirin started for bilateral common carotid narrowing-vascular surgery consult appreciated. Continue Cerebyx EEG sharp activity on eeg. MRI indicates diffuse anoxic brain injury with poor prognosis. EEG bihemispheric slowing and intermittent right central posterior sharp discharges which appear to be epileptiform. Dilantin level is therapeutic 09/12/16: Overnight had episodes myoclonus versus seizures. Neuro exam remains poor. No significant improvement. Low grade fever. Remains tachypneic on the ventilator. Restart propofol for vent synchrony 09/13/16: Neuro exam remains unchanged overnight. ICP monitor placed 09/12 for cerebral edema- ICP controlled with hyperosmolar therapy. 2 episodes of seizures vs myoclonus reported. Repeat EEG today. IVC filter placed 09/12/16 evening for large IVC thrombus. Unable to anticoagulate due to thrombocytopenia , cerebral edema-high risk of bleeding 09/14 EEG yesterday showed severe encephalopathy. ICP mainly 10-13 but intermittently spiked up to max of 22, improved with propofol bolus. Myoclonus noted with any tactile stimulation. 09/15 Comatose with myoclonus. ICP intermittently increased to 20, sometimes drifts down without intervention, sometimes improves with sedation. Extensor posturing. 09/16 Off continuous sedation. Comatose with myoclonus. Corneal reflex present on left, absent on right. ICP monitor removed today per NSG. 09/17: no significant neurologic improvement. off sedation. only intermittent ativan for myoclonus which improves symptoms. family meeting today, and family requests aggressive care, including trach/peg. 09/18: No change in neuro exam. Continued to spike high temperatures up to 102.5. CBC pending. I will discontinue Cerebyx start Keppra, check gallbladder ultrasound again and placed on empiric cefepime and single dose of vancomycin. Sputum culture Gram stain shows few GPC. On cooling blanket, and Tylenol. Motrin added. s/p Trach yesterday 09/19: no improvements or changes. sodium trending down. repeat sputum culture 09/17 growing staph aureus. KP pending. 09/20: No change in neuro exam. Overnight spike fever 103 again. Patient has bloody secretion from bilateral nares-she may have some acute sinusitis. Continue broad-spectrum antibiotics. Discontinue NG tube as the patient is getting PEG today 09/21: PEG yesterday. no changes. sputum again growing MSSA. 09/22: Colonization, no pneumonia. 09/23: No change in neuro status. 09/26: Halicat from floor after mucus plug. Back on vent. Sats marginal. 09/27: Remains on PRVC +8 ventilation. Resting in bed in no acute distress. Continues with generalized myoclonus. Withdraws right upper extremity only for me. RN stated left upper extremity. Gaze to right. 09/28: PEEP decreased to 5. FiO2 decreased to 40%. Continues with generalized myoclonus. Vaguely withdrawals to noxious stimuli. Tmax 101.5. Tolerating tube feeds better. 09/29: Transferred from [facility] to [facility] yesterday night. No acute events overnight. Chest x-ray clear on my review. Tmax 102.5. WBC count pending 09/30: Fever trending down. WBC count has normalized. Hemoglobin trending down now 8. Will continue Arixtra without changing to Coumadin. Partial eye opening to central pain 10/01: Tolerated CPAP for approximately 4 hours yesterday. Low-grade fever 100.5. No other acute events overnight. Having bowel movement Subjective: 10/02 Was out of bed to stretcher chair 4 hours yesterday. Tolerated C Pap 10 over 5 for 6 hours. Was taken off T piece after 30 minutes due to Tachypnea and tachycardia. Temp max 100.0. White blood cell count 12.7. U/a occasional WBC clumps. Nursing states some leakage around the Anton. 2 large bowel movements overnight Objective Vital Signs Date Time Temp Pulse Resp B/P Pulse Ox O2 Delivery O2 Flow Rate FiO2 10/02/16 06:00 100 10/02/16 06:00 22 98/60 97 10/02/16 04:09 35 10/02/16 04:00 98.7 09/30/16 13:51 T-piece Intake and Output 10/01/16 10/01/16 10/01/16 07:59 15:59 23:59 Intake Total 250 ml 525 ml 960 ml Output Total 550 ml 450 ml Balance 250 ml -25 ml 510 ml Result Diagram: 10/02/16 0525 10/02/16 0525 Other Results Microbiology Date/Time Procedure Status Source Growth 09/29/16 08:08 Urine Culture - Final Complete Urine Catheterized Urine NO GROWTH IN 48 HOURS. 09/30/16 11:30 Stool Occult Blood (JULIANNE) - Final Complete Stool Stool HEMOCCULT NEGATIVE Imaging Last Impressions Chest X-Ray 09/26/16 0000 Signed Impressions: Service Date/Time: Monday, September 26, 2016 10:39 - CONCLUSION: Stable appearance with mild infrahilar opacity again noted. Seth Breen MD Liver Ultrasound 09/18/16 0000 Signed Impressions: Service Date/Time: Sunday, September 18, 2016 09:27 - CONCLUSION: 1. There is sludge within the gallbladder. No other findings are present to indicate acute cholecystitis. 2. Mild splenomegaly. 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 This is nonocclusive. A retrievable IVC filter was deployed below the main hepatic veins but it was necessary to cross an accessory right hepatic vein. Jose Armando Jackson Jr., MD Head CT 09/12/16 0000 Signed Impressions: Service Date/Time: Monday, September 12, 2016 09:29 - CONCLUSION: Mild loss of lemos matter definition that can be seen with increasing intracranial pressure. Ricki Cavazos MD FACR Neck Magnetic Resonance Angiography 09/09/16 0000 Signed Impressions: Service Date/Time: August 16:02 - CONCLUSION: 1. Moderate to severe smooth narrowing of the left common carotid artery and also moderate narrowing of the proximal right common carotid artery as well as narrowing of both proximal vertebral arteries likely related to recent hanging. Etiology could be related to vasospasm or recent extrinsic prolonged compression. The distal internal carotid arteries and vertebral artery have more normal calibers. Findings called to Dr. Bhatt at the time of dictation. Gideon Brown MD Cervical Spine MRI 09/09/16 0000 Signed Impressions: Service Date/Time: August 16:02 - CONCLUSION: 1. Very minimal degenerative disc disease at C5-6. 2. No acute fracture or prevertebral soft tissue swelling. 3. No focal cervical cord abnormality. Tray Santiago MD Brain MRI 09/09/16 0000 Signed Impressions: Service Date/Time: August 16:02 - CONCLUSION: 1. Diffuse FLAIR-weighted hyperintensities involving the caudate nuclei bilaterally, bilateral hummel radiata, as well as the bilateral parietal and occipital cortex consistent with the patient's clinical diagnosis of anoxic encephalopathy. 2. No acute hemorrhage, midline shift, extra-axial fluid collection or abnormal enhancement. 3. Small fluid level within the right sphenoid sinus. Tray Santiago MD Cervical Spine CT 09/07/16 1800 Signed Impressions: Service Date/Time: Wednesday, September 07, 2016 18:06 - CONCLUSION: 1. No fracture or subluxation. 2. Scattered groundglass nodules throughout the upper lobes, nonspecific but can be seen with hypersensitivity pneumonitis. Artem Madera MD Objective Remarks GENERAL: 20-year-old female, resting in bed SKIN: Warm and dry. HEAD: Normocephalic. Pupils are 4 mm bilaterally, sluggish but reactive. EYES: No scleral icterus. No injection or drainage. NECK: trachea midline. trach site clean, dry. CARDIOVASCULAR: The cardiac, RRR. S1, S2 no S4. Without murmur. RESPIRATORY: Unlabored. equal chest rise. clear, no wheezes or crackles. GASTROINTESTINAL: Abdomen soft, non-tender, distended. G-tube is clean dry and intact MUSCULOSKELETAL: Mild edema over the dorsum of left hand. NEURO: Pupils are 4 mm, reactive. Opens eyes partially to noxious stimuli, but eyes are rolled up, or slow lateral rowing movement. To deep central and peripheral noxious stimuli, slightly withdraws right upper extremity, myoclonic movement collin lower extremity. General myoclonic movements on stimulation. A/P Assessment and Plan NEURO/PSYCH: Severe anoxic brain injury Collin common carotid narrowing Attempted suicide by hanging Seizure, Myoclonus Depression - MRI shows evidence of diffuse anoxic brain injury including weighted hyperintensity bilateral caudate, bilateral Hummel radiata, bilateral occipital and parietal lobes. - MRA neck bilateral common carotid narrowing-vascular surgery consulted, no intervention. started aspirin 09/10 - CT 09/12-loss salguero/white matter differentiation c/w cerebral edema. ICP monitor 09/12- 09/16. - EEG 09/10 bilateral sharp activity, on Dilantin. Level therapeutic 09/12. DCd Dilantin 09/18/16 due high fever, started Keppra - EEG 09/11 Encephalopathy, no sz. - EEG 09/13severe encephalopathy. (delta waves) - s/p induced hypothermia. - Neurology Dr. Valdez has followed. He states prognosis is poor and recommended comfort measures. - NSG Dr. José states poor prognosis, recommends comfort care. - Toxicology negative - Clonazepam 0.5 mg by PEG every 12 hours scheduled for clonus - Ativan 1 mg IV every hours for symptomatic control for severe myoclonus. - Oxycodone 5mg every 6 hours PRN. Fentanyl prn CV: Status post cardiac arrest Hemodynamic stable - Currently not requiring vasopressors and/or anti-hypertensives. - On propranolol 20 mg bid (tremors/tachycardia) started 09/29, will place hold orders. Resp: Vent dependent hypoxemic respiratory failure Pre-hospital Aspiration pneumonitis Mucous plugging - PRVC, /02/18/39, daily CPAP and then transition to Tpiece. - ventilator bundle. - Albuterol/Atrovent aerosols every 6 hours and albuterol aerosols when necessary Had hypertonic saline for mucolytic 5 days s/p trach 09/17/16. Vijay Jackson and Kunal. Remove trach sutures today. nursi GI/FEN: Transaminitis most likely from shock, resolved. Hyponatremia - Tube feedings Jevity 1.5 at 50 L per hour per nutrition recommendations. - s/p PEG 09/20 - repeat GB u/s without signs of cholecystitis 09/18 - Decrease salt tab bid. - Liver ultrasound 09/12large nonocclusive thrombus and IVC. Renal/: Fluid overload-improved -Monitor BUN/creatinine daily. - Inaccurate I/O due to lack Anton. -DC Anton today. Bladder scan ID: Fever Blood urine cultures 09/27 negative to date Sputum with MSSA 09/08. 09/27 normal julio Placed on Zosyn and vanc 09/29#4. till cultures resulted, ID [place]. DC'd Vanc 10/01. urine culture 09/29 NGTD. Blood culture 09/28 NGTD. CXR 10/02 - clear No invasive lines. D/c anton. On dlfucan 09/29 per ID. Fever May be secondary to DVT and neuro - Zosyn 4.5 g IV every 6 hours 09/08-09/15 .fever may be secondary to DVT. - sputum culture 09/17 staph aureus Ancef 2gm iv q8h, total 10 day course of abx for recurrent MSSA pna. As needed acetaminophen Endo: - Sliding-scale insulin if needed HEME: Leukocytosis Thrombocytosis Normocytic anemia Large IVC thrombus - Monitor CBC CMP coags. - IVC filter placed 09/12 due to inability to anticoagulate (thrombocytopenia) and cerebral edema. - Now platelets improved, on fondaparinux 7.5 mg daily from 09/18/16. 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 KP negative. - continue Arixtra, will not start Coumadin until hemoglobin stable DVT GI prophylaxis - IVC filter in place. Continue lansoprazole.fondaparinux 7.5 mg daily started 09/18/16 Lines: - PIV Level III follow-up Cathy Clark MD Oct 02, 2016 07:19
[2016-10-02] MEDS: POTASSIUM CHLORIDE 25 MEQ EFFERVESCENT TAB G-TUBE SCH (08:54)
[2016-10-02] MEDS: LANSOPRAZOLE SOLUTAB 30 MG TAB NG SCH (08:54)
[2016-10-02] MEDS: levETIRAcetam 500 MG/5 ML UDC NG SCH ×2 (08:54→22:17)
[2016-10-02] MEDS: ARTIFICIAL TEARS OPTH SOLN 15 ML BTL EACH EYE SCH ×2 (08:55→22:16)
[2016-10-02] MEDS: DOCUSATE SODIUM 100 MG/10 ML UDC G-TUBE SCH ×2 (08:55→21:00)
[2016-10-02] MEDS: BISACODYL 10 MG SUPP RECTAL SCH (08:55)
[2016-10-02] MEDS: SODIUM CHLORIDE 0.9% FLUSH 10 ML FLUSH IV FLUSH PRN (08:56)
[2016-10-02] MEDS: FLUCONAZOLE 200 MG PREMIX BAG 100 ML IV SCH (15:22)
[2016-10-02] MEDS ORDERED: WARFARIN SOD 5 MG TAB PO SCH (16:00)
[2016-10-03] VITALS (29 sets, daily range): BP systolic 96–113; BP diastolic 56–71; PULSE 86–102; RESP 18–39; TEMP 97–99.2; O2SAT 94–100
[2016-10-03] MEDS: clonazePAM 1 MG TAB G-TUBE SCH ×2 (01:25→13:48)
[2016-10-03] MEDS: PROPRANOLOL HCL 20 MG TAB G-TUBE SCH ×3 (01:25→17:23)
[2016-10-03] MEDS: PIPERACIL-TAZO 4.5 GM PREMIX 100 ML IV SCH ×3 (01:27→22:11)
[2016-10-03] MEDS: RESP: ALBUTEROL 2.5 MG/IPRATROPIUM 0.5 MG NEB (SCH) NEB ×4 (03:35→21:04)
[2016-10-03] MEDS: CHLORHEXIDINE GLUCONATE 2 % 1 PACK (2 CLOTHS) TOP SCH (03:39)
[2016-10-03 05:13] LABS: BASOPHIL # 0.1 TH/MM3 (0-0.2); BASOPHIL % 0.8 % (0.0-2.0); EOSINOPHIL # 0.3 TH/MM3 (0-0.4); EOSINOPHIL % 2.5 % (0.0-4.0); HEMATOCRIT 25.4 % (35.0-46.0); HEMO FLAGS DIFF FINAL; LYMPH % 15.4 % (9.0-44.0); LYMPHOCYTE # 1.5 TH/MM3 (1.0-4.8); MEAN CORPUSCULAR HEMOGLOBIN 26.2 PG (27.0-34.0); MEAN CORPUSCULAR HGB CONC 32.7 % (32.0-36.0); MONO % 11.3 % (0.0-8.0); PLATELET COUNT 435 TH/MM3 (150-450); RED BLOOD COUNT 3.17 MIL/MM3 (4.00-5.30); RED CELL DISTRIBUTION WIDTH 13.9 % (11.6-17.2)
[2016-10-03 05:26] LABS: INTERNATIONAL NORMALIZED RATIO 1.9 RATIO
[2016-10-03] MEDS: FONDAPARINUX SODIUM 7.5 MG/0.6 ML SYRINGE SQ SCH (06:30)
[2016-10-03] MEDS: PILL SPLITTER OTHER PRN (13:48)
[2016-10-03] MEDS: SODIUM CHLORIDE 0.9% FLUSH 10 ML FLUSH IV FLUSH PRN (13:49)
[2016-10-03] MEDS: FLUCONAZOLE 200 MG PREMIX BAG 100 ML IV SCH (15:05)
--- NOTE | 2016-10-03 18:29 | HHI.CCPN ---
Subjective Remarks/Hospital Course 19 years old was brought in as a trauma alert. He has had to hanged herself and was found by her roommate. Unknown time of hanging. When fire department arrived patient was in asystole. CPR was started and one round of meds were given as per ACLS protocol. There was return of spontaneous circulation soon after that. Patient was brought in getting breaths by BV. She had a blood pressure and half way to arriving to the ER she started having some spontaneous respirations. She continued to be a GCS 3 when she arrived. She is admitted to critical care unit and therapeutic hypothermia protocol is initiated. 09/08/16: Patient achieving target temperature but developing severe shock. Levothroid had been increased to 30 mcg/m Mehdi-Synephrine added. Additional fluid boluses ordered currently on bicarbonate infusion additional one amp of bicarbonate given. Chest x-ray shows severe aspiration pneumonitis predominantly right lower lobe infiltrates. Zosyn 4.5 GM IV q8 started, give single dose of vanc 09/09/16: Patient is in the rewarming phase of hypothermia protocol. Once sedation was lightened and taken off the Nimbex, patient started developing tonic-clonic generalized seizure like activity. Bolused with a total of 6 mg Ativan in divided doses and restarted on Versed and propofol infusions. Loaded with Cerebyx 1 g and scheduled at 100 mg every 8 hours. Stat EEG pending. Neurology following 09/10/16: Remains on high dose of vasopressors, MRI brain shows evidence of anoxic brain injury. MRA neck bilateral common carotid narrowing. Start on aspirin get vascular surgery consult. No further seizure-like episodes noted. Pupils are equal bilaterally with slight withdrawal of right lower extremity to central pain. 09/11/16: Currently remains off all sedation in process. No noticeable improvement in neuro status, slight withdrawal x4. Aspirin started for bilateral common carotid narrowing-vascular surgery consult appreciated. Continue Cerebyx EEG sharp activity on eeg. MRI indicates diffuse anoxic brain injury with poor prognosis. EEG bihemispheric slowing and intermittent right central posterior sharp discharges which appear to be epileptiform. Dilantin level is therapeutic 09/12/16: Overnight had episodes myoclonus versus seizures. Neuro exam remains poor. No significant improvement. Low grade fever. Remains tachypneic on the ventilator. Restart propofol for vent synchrony 09/13/16: Neuro exam remains unchanged overnight. ICP monitor placed 09/12 for cerebral edema- ICP controlled with hyperosmolar therapy. 2 episodes of seizures vs myoclonus reported. Repeat EEG today. IVC filter placed 09/12/16 evening for large IVC thrombus. Unable to anticoagulate due to thrombocytopenia , cerebral edema-high risk of bleeding 09/14 EEG yesterday showed severe encephalopathy. ICP mainly 10-13 but intermittently spiked up to max of 22, improved with propofol bolus. Myoclonus noted with any tactile stimulation. 09/15 Comatose with myoclonus. ICP intermittently increased to 20, sometimes drifts down without intervention, sometimes improves with sedation. Extensor posturing. 09/16 Off continuous sedation. Comatose with myoclonus. Corneal reflex present on left, absent on right. ICP monitor removed today per NSG. 09/17: no significant neurologic improvement. off sedation. only intermittent ativan for myoclonus which improves symptoms. family meeting today, and family requests aggressive care, including trach/peg. 09/18: No change in neuro exam. Continued to spike high temperatures up to 102.5. CBC pending. I will discontinue Cerebyx start Keppra, check gallbladder ultrasound again and placed on empiric cefepime and single dose of vancomycin. Sputum culture Gram stain shows few GPC. On cooling blanket, and Tylenol. Motrin added. s/p Trach yesterday 09/19: no improvements or changes. sodium trending down. repeat sputum culture 09/17 growing staph aureus. KP pending. 09/20: No change in neuro exam. Overnight spike fever 103 again. Patient has bloody secretion from bilateral nares-she may have some acute sinusitis. Continue broad-spectrum antibiotics. Discontinue NG tube as the patient is getting PEG today 09/21: PEG yesterday. no changes. sputum again growing MSSA. 09/22: Colonization, no pneumonia. 09/23: No change in neuro status. 09/26: Halicat from floor after mucus plug. Back on vent. Sats marginal. 09/27: Remains on PRVC +8 ventilation. Resting in bed in no acute distress. Continues with generalized myoclonus. Withdraws right upper extremity only for me. RN stated left upper extremity. Gaze to right. 09/28: PEEP decreased to 5. FiO2 decreased to 40%. Continues with generalized myoclonus. Vaguely withdrawals to noxious stimuli. Tmax 101.5. Tolerating tube feeds better. 09/29: Transferred from [facility] to [facility] yesterday night. No acute events overnight. Chest x-ray clear on my review. Tmax 102.5. WBC count pending 09/30: Fever trending down. WBC count has normalized. Hemoglobin trending down now 8. Will continue Arixtra without changing to Coumadin. Partial eye opening to central pain 10/01: Tolerated CPAP for approximately 4 hours yesterday. Low-grade fever 100.5. No other acute events overnight. Having bowel movement 10/02 Was out of bed to stretcher chair 4 hours yesterday. Tolerated C Pap 10 over 5 for 6 hours. Was taken off T piece after 30 minutes due to Tachypnea and tachycardia. Temp max 100.0. White blood cell count 12.7. U/a occasional WBC clumps. Nursing states some leakage around the Anton. 2 large bowel movements overnight Subjective: 10/03 Out of bed to stretch here for 4 hours. Tolerated C Pap and then T piece for 2 hours. Does not track. T99.2 Objective Vital Signs Date Time Temp Pulse Resp B/P (MAP) Pulse Ox O2 Delivery O2 Flow Rate FiO2 10/03/16 18:00 92 28 102/65 (77) 98 10/03/16 16:51 35 10/03/16 16:00 99.2 10/03/16 11:00 T-piece Intake and Output 10/03/16 10/03/16 10/04/16 08:00 16:00 00:00 Intake Total 459 ml 931 ml Balance 459 ml 931 ml Result Diagram: 10/03/16 0454 10/03/16 0454 Imaging Last Impressions Chest X-Ray 09/26/16 0000 Signed Impressions: Service Date/Time: Monday, September 26, 2016 10:39 - CONCLUSION: Stable appearance with mild infrahilar opacity again noted. Seth Breen MD Liver Ultrasound 09/18/16 0000 Signed Impressions: Service Date/Time: Sunday, September 18, 2016 09:27 - CONCLUSION: 1. There is sludge within the gallbladder. No other findings are present to indicate acute cholecystitis. 2. Mild splenomegaly. Miller Lee MD IVC Filter Placement X-Ray 09/12/16 Signed Impressions: Service Date/Time: Monday, September 12, 2016 20:00 - CONCLUSION: Caval thrombosis extending from the suprarenal IVC to the infrarenal IVC. This is nonocclusive. A retrievable IVC filter was deployed below the main hepatic veins but it was necessary to cross an accessory right hepatic vein. Jose Armando Jackson Jr., MD Head CT 09/12/16 Signed Impressions: Service Date/Time: Monday, September 12, 2016 09:29 - CONCLUSION: Mild loss of lemos matter definition that can be seen with increasing intracranial pressure. Ricki Cavazos MD FACR Neck Magnetic Resonance Angiography 09/09/16 Signed Impressions: Service Date/Time: August 16:02 - CONCLUSION: 1. Moderate to severe smooth narrowing of the left common carotid artery and also moderate narrowing of the proximal right common carotid artery as well as narrowing of both proximal vertebral arteries likely related to recent hanging. Etiology could be related to vasospasm or recent extrinsic prolonged compression. The distal internal carotid arteries and vertebral artery have more normal calibers. Findings called to Dr. Bhatt at the time of dictation. Gideon Brown MD Cervical Spine MRI 09/09/16 0000 Signed Impressions: Service Date/Time: August 16:02 - CONCLUSION: 1. Very minimal degenerative disc disease at C5-6. 2. No acute fracture or prevertebral soft tissue swelling. 3. No focal cervical cord abnormality. Tray Santiago MD Brain MRI 09/09/16 0000 Signed Impressions: Service Date/Time: August 16:02 - CONCLUSION: 1. Diffuse FLAIR-weighted hyperintensities involving the caudate nuclei bilaterally, bilateral uhmmel radiata, as well as the bilateral parietal and occipital cortex consistent with the patient's clinical diagnosis of anoxic encephalopathy. 2. No acute hemorrhage, midline shift, extra-axial fluid collection or abnormal enhancement. 3. Small fluid level within the right sphenoid sinus. Tray Santiago MD Cervical Spine CT 09/07/16 1800 Signed Impressions: Service Date/Time: Wednesday, September 07, 2016 18:06 - CONCLUSION: 1. No fracture or subluxation. 2. Scattered groundglass nodules throughout the upper lobes, nonspecific but can be seen with hypersensitivity pneumonitis. Artem F. Tocci, MD Objective Remarks GENERAL: 20-year-old female, resting in bed SKIN: Warm and dry. HEAD: Normocephalic. Pupils are 4 mm bilaterally, sluggish but reactive. EYES: No scleral icterus. No injection or drainage. NECK: trachea midline. trach site clean, dry. CARDIOVASCULAR: The cardiac, RRR. S1, S2 no S4. Without murmur. RESPIRATORY: Unlabored. equal chest rise. clear, no wheezes or crackles. GASTROINTESTINAL: Abdomen soft, non-tender, distended. G-tube is clean dry and intact MUSCULOSKELETAL: Mild edema over the dorsum of left hand. NEURO: Pupils are 4 mm, reactive. Opens eyes partially to noxious stimuli, but eyes are rolled up, does not track. To deep central and peripheral noxious stimuli, slightly withdrews right upper extremity yesterday but unable to appreciate that response today (only myoclonus), myoclonic movement collin lower extremity. General myoclonic movements on stimulation. A/P Assessment and Plan NEURO/PSYCH: Severe anoxic brain injury Collin common carotid narrowing Attempted suicide by hanging Seizure, Myoclonus Depression - MRI shows evidence of diffuse anoxic brain injury including weighted hyperintensity bilateral caudate, bilateral Hummel radiata, bilateral occipital and parietal lobes. - MRA neck bilateral common carotid narrowing-vascular surgery consulted, no intervention. started aspirin 09/10 - CT 09/12-loss salguero/white matter differentiation c/w cerebral edema. ICP monitor 09/12- 09/16. - EEG 09/10 bilateral sharp activity, on Dilantin. Level therapeutic 09/12. DCd Dilantin 09/18/16 due high fever, started Keppra - EEG 09/11 Encephalopathy, no sz. - EEG 09/13severe encephalopathy. (delta waves) - s/p induced hypothermia. - Neurology Dr. Valdez has followed. He states prognosis is poor and recommended comfort measures. - NSG Dr. José states poor prognosis, recommends comfort care. - Toxicology negative - Clonazepam 0.5 mg by PEG every 12 hours scheduled for clonus - Ativan 1 mg IV every hours for symptomatic control for severe myoclonus. - Oxycodone 5mg every 6 hours PRN. Fentanyl prn CV: Status post cardiac arrest Hemodynamic stable - Currently not requiring vasopressors and/or anti-hypertensives. - On propranolol 20 mg bid (tremors/tachycardia) started 09/29, will place hold orders. Resp: Vent dependent hypoxemic respiratory failure Pre-hospital Aspiration pneumonitis Mucous plugging - PRVC, /02/18/39, daily CPAP and then transition to Tpiece. - ventilator bundle. - Albuterol/Atrovent aerosols every 6 hours and albuterol aerosols when necessary Had hypertonic saline for mucolytic 5 days s/p trach 09/17/16. Vijay Jackson and Kunal. Removed trach sutures 10.02.. GI/FEN: Transaminitis most likely from shock, resolved. Hyponatremia - Tube feedings Jevity 1.5 at 50 L per hour per nutrition recommendations. - s/p PEG 09/20 - repeat GB u/s without signs of cholecystitis 09/18 - Decrease salt tab bid. - Liver ultrasound 09/12large nonocclusive thrombus and IVC. Renal/: Fluid overload-improved -Monitor BUN/creatinine daily. -Voiding, incontinent. Bladder scan ID: Fever Blood urine cultures 09/27 negative to date Sputum with MSSA 09/08. 09/27 normal julio Placed on Zosyn and vanc 09/29#5. till cultures resulted, ID [place]. DC'd Vanc 10/01. urine culture 09/29 NGTD. Blood culture 09/28 NGTD. CXR 10/02 - clear No invasive lines. D/c anton. On dlfucan 09/29 per ID. Fever May be secondary to DVT and neuro - Zosyn 4.5 g IV every 6 hours 09/08-09/15 .fever may be secondary to DVT. - sputum culture 09/17 staph aureus Ancef 2gm iv q8h, total 10 day course of abx for recurrent MSSA pna. As needed acetaminophen Endo: - Sliding-scale insulin if needed HEME: Leukocytosis Thrombocytosis Normocytic anemia Large IVC thrombus - Monitor CBC CMP coags. - IVC filter placed 09/12 due to inability to anticoagulate (thrombocytopenia) and cerebral edema. - Now platelets improved, on fondaparinux 7.5 mg daily from 09/18/16. 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 KP negative. - continue Arixtra DVT GI prophylaxis - IVC filter in place. Continue lansoprazole.fondaparinux 7.5 mg daily started 09/18/16 Lines: - PIV Updated patient's boyfriend at bedside. Aziza's mother has previously told me that I am allowed to update him. Level II follow-up Cathy Clark MD Oct 03, 2016 18:29
[2016-10-03] MEDS: ARTIFICIAL TEARS OPTH SOLN 15 ML BTL EACH EYE SCH (22:11)
[2016-10-03] MEDS: levETIRAcetam 500 MG/5 ML UDC NG SCH (22:11)
[2016-10-03] MEDS: SODIUM CHLORIDE 1 GRAM TAB G-TUBE SCH (22:11)
[2016-10-03] MEDS: DOCUSATE SODIUM 100 MG/10 ML UDC G-TUBE SCH (22:12)
[2016-10-04] VITALS (37 sets, daily range): BP systolic 87–115; BP diastolic 52–72; PULSE 84–96; RESP 16–37; TEMP 96.1–99.4; O2SAT 95–99
[2016-10-04] MEDS: PROPRANOLOL HCL 20 MG TAB G-TUBE SCH ×4 (01:01→17:15)
[2016-10-04] MEDS: clonazePAM 1 MG TAB G-TUBE SCH ×2 (01:01→13:36)
[2016-10-04] MEDS: PIPERACIL-TAZO 4.5 GM PREMIX 100 ML IV SCH (01:01)
[2016-10-04] MEDS: RESP: ALBUTEROL 2.5 MG/IPRATROPIUM 0.5 MG NEB (SCH) NEB ×4 (03:06→21:50)
[2016-10-04] MEDS: CHLORHEXIDINE GLUCONATE 2 % 1 PACK (2 CLOTHS) TOP SCH (03:47)
[2016-10-04 06:10] LABS: INTERNATIONAL NORMALIZED RATIO 1.5 RATIO; PROTHROMBIN TIME - PATIENT 16.5 SEC (9.8-11.6)
[2016-10-04] MEDS: FONDAPARINUX SODIUM 7.5 MG/0.6 ML SYRINGE SQ SCH (06:29)
--- NOTE | 2016-10-04 06:43 | HHI.CCPN ---
Subjective Remarks/Hospital Course 19 years old was brought in as a trauma alert. He has had to hanged herself and was found by her roommate. Unknown time of hanging. When fire department arrived patient was in asystole. CPR was started and one round of meds were given as per ACLS protocol. There was return of spontaneous circulation soon after that. Patient was brought in getting breaths by BV. She had a blood pressure and half way to arriving to the ER she started having some spontaneous respirations. She continued to be a GCS 3 when she arrived. She is admitted to critical care unit and therapeutic hypothermia protocol is initiated. 09/08/16: Patient achieving target temperature but developing severe shock. Levothroid had been increased to 30 mcg/m Mehdi-Synephrine added. Additional fluid boluses ordered currently on bicarbonate infusion additional one amp of bicarbonate given. Chest x-ray shows severe aspiration pneumonitis predominantly right lower lobe infiltrates. Zosyn 4.5 GM IV q8 started, give single dose of vanc 09/09/16: Patient is in the rewarming phase of hypothermia protocol. Once sedation was lightened and taken off the Nimbex, patient started developing tonic-clonic generalized seizure like activity. Bolused with a total of 6 mg Ativan in divided doses and restarted on Versed and propofol infusions. Loaded with Cerebyx 1 g and scheduled at 100 mg every 8 hours. Stat EEG pending. Neurology following 09/10/16: Remains on high dose of vasopressors, MRI brain shows evidence of anoxic brain injury. MRA neck bilateral common carotid narrowing. Start on aspirin get vascular surgery consult. No further seizure-like episodes noted. Pupils are equal bilaterally with slight withdrawal of right lower extremity to central pain. 09/11/16: Currently remains off all sedation in process. No noticeable improvement in neuro status, slight withdrawal x4. Aspirin started for bilateral common carotid narrowing-vascular surgery consult appreciated. Continue Cerebyx EEG sharp activity on eeg. MRI indicates diffuse anoxic brain injury with poor prognosis. EEG bihemispheric slowing and intermittent right central posterior sharp discharges which appear to be epileptiform. Dilantin level is therapeutic 09/12/16: Overnight had episodes myoclonus versus seizures. Neuro exam remains poor. No significant improvement. Low grade fever. Remains tachypneic on the ventilator. Restart propofol for vent synchrony 09/13/16: Neuro exam remains unchanged overnight. ICP monitor placed 09/12 for cerebral edema- ICP controlled with hyperosmolar therapy. 2 episodes of seizures vs myoclonus reported. Repeat EEG today. IVC filter placed 09/12/16 evening for large IVC thrombus. Unable to anticoagulate due to thrombocytopenia , cerebral edema-high risk of bleeding 09/14 EEG yesterday showed severe encephalopathy. ICP mainly 10-13 but intermittently spiked up to max of 22, improved with propofol bolus. Myoclonus noted with any tactile stimulation. 09/15 Comatose with myoclonus. ICP intermittently increased to 20, sometimes drifts down without intervention, sometimes improves with sedation. Extensor posturing. 09/16 Off continuous sedation. Comatose with myoclonus. Corneal reflex present on left, absent on right. ICP monitor removed today per NSG. 09/17: no significant neurologic improvement. off sedation. only intermittent ativan for myoclonus which improves symptoms. family meeting today, and family requests aggressive care, including trach/peg. 09/18: No change in neuro exam. Continued to spike high temperatures up to 102.5. CBC pending. I will discontinue Cerebyx start Keppra, check gallbladder ultrasound again and placed on empiric cefepime and single dose of vancomycin. Sputum culture Gram stain shows few GPC. On cooling blanket, and Tylenol. Motrin added. s/p Trach yesterday 09/19: no improvements or changes. sodium trending down. repeat sputum culture 09/17 growing staph aureus. KP pending. 09/20: No change in neuro exam. Overnight spike fever 103 again. Patient has bloody secretion from bilateral nares-she may have some acute sinusitis. Continue broad-spectrum antibiotics. Discontinue NG tube as the patient is getting PEG today 09/21: PEG yesterday. no changes. sputum again growing MSSA. 09/22: Colonization, no pneumonia. 09/23: No change in neuro status. 09/26: Halicat from floor after mucus plug. Back on vent. Sats marginal. 09/27: Remains on PRVC +8 ventilation. Resting in bed in no acute distress. Continues with generalized myoclonus. Withdraws right upper extremity only for me. RN stated left upper extremity. Gaze to right. 09/28: PEEP decreased to 5. FiO2 decreased to 40%. Continues with generalized myoclonus. Vaguely withdrawals to noxious stimuli. Tmax 101.5. Tolerating tube feeds better. 09/29: Transferred from [facility] to [place] ICU yesterday night. No acute events overnight. Chest x-ray clear on my review. Tmax 102.5. WBC count pending 09/30: Fever trending down. WBC count has normalized. Hemoglobin trending down now 8. Will continue Arixtra without changing to Coumadin. Partial eye opening to central pain 10/01: Tolerated CPAP for approximately 4 hours yesterday. Low-grade fever 100.5. No other acute events overnight. Having bowel movement 10/02 Was out of bed to stretcher chair 4 hours yesterday. Tolerated C Pap 10 over 5 for 6 hours. Was taken off T piece after 30 minutes due to Tachypnea and tachycardia. Temp max 100.0. White blood cell count 12.7. U/a occasional WBC clumps. Nursing states some leakage around the Anton. 2 large bowel movements overnight 10/03 Out of bed to stretchr for 4 hours. Tolerated C Pap and then T piece for 2 hours. Does not track. T99.2 Subjective: 10/04 No neurologic change. Objective Vital Signs Date Time Temp Pulse Resp B/P (MAP) Pulse Ox O2 Delivery O2 Flow Rate FiO2 10/04/16 05:00 90 24 108/64 (79) 98 10/04/16 04:00 35 10/04/16 04:00 99.1 10/03/16 11:00 T-piece Intake and Output 10/04/16 10/04/16 10/05/16 08:00 16:00 00:00 Intake Total 318 ml Balance 318 ml Result Diagram: 10/03/16 0454 10/03/16 0454 Imaging Last Impressions Chest X-Ray 09/26/16 0000 Signed Impressions: Service Date/Time: Monday, September 26, 2016 10:39 - CONCLUSION: Stable appearance with mild infrahilar opacity again noted. Seth Breen MD Liver Ultrasound 09/18/16 0000 Signed Impressions: Service Date/Time: Sunday, September 18, 2016 09:27 - CONCLUSION: 1. There is sludge within the gallbladder. No other findings are present to indicate acute cholecystitis. 2. Mild splenomegaly. Miller Lee MD IVC Filter Placement X-Ray 09/12/16 Signed Impressions: Service Date/Time: Monday, September 12, 2016 20:00 - CONCLUSION: Caval thrombosis extending from the suprarenal IVC to the infrarenal IVC. This is nonocclusive. A retrievable IVC filter was deployed below the main hepatic veins but it was necessary to cross an accessory right hepatic vein. Jose Armando Jackson Jr., MD Head CT 09/12/16 Signed Impressions: Service Date/Time: Monday, September 12, 2016 09:29 - CONCLUSION: Mild loss of lemos matter definition that can be seen with increasing intracranial pressure. Rikci Cavazos MD FACR Neck Magnetic Resonance Angiography 09/09/16 Signed Impressions: Service Date/Time: August 16:02 - CONCLUSION: 1. Moderate to severe smooth narrowing of the left common carotid artery and also moderate narrowing of the proximal right common carotid artery as well as narrowing of both proximal vertebral arteries likely related to recent hanging. Etiology could be related to vasospasm or recent extrinsic prolonged compression. The distal internal carotid arteries and vertebral artery have more normal calibers. Findings called to Dr. Bhatt at the time of dictation. Gideon Brown MD Cervical Spine MRI 09/09/16 Signed Impressions: Service Date/Time: August 16:02 - CONCLUSION: 1. Very minimal degenerative disc disease at C5-6. 2. No acute fracture or prevertebral soft tissue swelling. 3. No focal cervical cord abnormality. Tray Santiago MD Brain MRI 09/09/16 Signed Impressions: Service Date/Time: August 16:02 - CONCLUSION: 1. Diffuse FLAIR-weighted hyperintensities involving the caudate nuclei bilaterally, bilateral hummel radiata, as well as the bilateral parietal and occipital cortex consistent with the patient's clinical diagnosis of anoxic encephalopathy. 2. No acute hemorrhage, midline shift, extra-axial fluid collection or abnormal enhancement. 3. Small fluid level within the right sphenoid sinus. Tray Santiago MD Cervical Spine CT 09/07/16 1800 Signed Impressions: Service Date/Time: Wednesday, September 07, 2016 18:06 - CONCLUSION: 1. No fracture or subluxation. 2. Scattered groundglass nodules throughout the upper lobes, nonspecific but can be seen with hypersensitivity pneumonitis. Artem F. Tocci, MD Objective Remarks GENERAL: 20-year-old female,laying in bed on MV via trach. SKIN: Warm and dry. HEAD: Normocephalic. Pupils are 4 mm bilaterally, sluggish but reactive. EYES: No scleral icterus. No injection or drainage. NECK: trachea midline. trach site clean, dry. CARDIOVASCULAR: The cardiac, RRR. S1, S2 no S4. Without murmur. RESPIRATORY: Coarse bilateral breath sounds. No wheeze. GASTROINTESTINAL: Abdomen soft, non-tender, distended. G-tube is clean dry and intact MUSCULOSKELETAL: Mod edema over the dorsum of left hand, trace/1+ edema all extremities. NEURO: Pupils are 2 mm, sluggishly reactive. No corneal reflex on right, slight L corneal reflex. Opens eyes partially to noxious stimuli, but eyes are rolled up, does not track. To deep central and peripheral noxious stimuli, slightly withdrews right upper extremity on 10/02 but subsequently unable to appreciate that response. Has tactile myoclonus to all extremities to touch or noxious stimuli. A/P Assessment and Plan NEURO/PSYCH: Severe anoxic brain injury Saud common carotid narrowing Attempted suicide by hanging Seizure, Myoclonus Depression - MRI shows evidence of diffuse anoxic brain injury including weighted hyperintensity bilateral caudate, bilateral Hummel radiata, bilateral occipital and parietal lobes. - MRA neck bilateral common carotid narrowing-vascular surgery consulted, no intervention. started aspirin 09/10 - CT 09/12-loss salguero/white matter differentiation c/w cerebral edema. ICP monitor 09/12- 09/16. - EEG 09/10 bilateral sharp activity, on Dilantin. Level therapeutic 09/12. DCd Dilantin 09/18/16 due high fever, started Keppra - EEG 09/11 Encephalopathy, no sz. - EEG 09/13severe encephalopathy. (delta waves) - s/p induced hypothermia. - Neurology Dr. Valdez has followed. He states prognosis is poor and recommended comfort measures. - NSG Dr. José states poor prognosis, recommends comfort care. - Toxicology negative - Clonazepam 0.5 mg by PEG every 12 hours scheduled for clonus - Ativan 1 mg IV every hours for symptomatic control for severe myoclonus. - Oxycodone 5mg every 6 hours PRN. Fentanyl prn CV: Status post cardiac arrest Hemodynamic stable - Currently not requiring vasopressors and/or anti-hypertensives. - On propranolol 20 mg bid (tremors/tachycardia) started 09/29, hold orders place for hemodynamic parameters. Resp: Acute hypoxemic respiratory failure Pre-hospital Aspiration pneumonitis Mucous plugging - PRVC, /02/18/39, daily CPAP and then transition to Tpiece, extend to 3 hours bid. . - ventilator bundle. - Albuterol/Atrovent aerosols every 6 hours and albuterol aerosols when necessary Had hypertonic saline for mucolytic 5 days s/p trach 09/17/16. Vijay Jackson and Kunal. Removed trach sutures 10/02.. GI/FEN: Transaminitis most likely from shock, resolved. Hyponatremia - Tube feedings Jevity 1.5 at 50 L per hour per nutrition recommendations. - s/p PEG 09/20 - repeat GB u/s without signs of cholecystitis 09/18 - Decrease salt tab 1gram bid on 10/02, continue to taper off as tolerated. . - Liver ultrasound 09/12large nonocclusive thrombus and IVC. Renal/: Fluid overload-overall improved -Lasix 20 mg per tube x1 today, KCL 25 MEQ x1 -Monitor BUN/creatinine daily. -Voiding, incontinent. Bladder scan ID: Fever MSSA pneumonia Blood urine cultures 09/27 negative to date Sputum with MSSA 09/08. 09/27 normal julio Placed on Zosyn 09/29 #6 ID [place]. DC'd Vanc 10/01. urine culture 09/29 NGTD. Blood culture 09/28 NGTD. CXR 10/02 - clear No invasive lines. D/c anton. D/c Diflucan per ID recs in note 10/01. D/c Zosyn and initiate levaquin 10/04 for MSSA PNA Fever May be secondary to DVT and neuro - Zosyn 4.5 g IV every 6 hours 09/08-09/15 .fever may be secondary to DVT. - sputum culture 09/17 staph aureus Ancef 2gm iv q8h, total 10 day course of abx for recurrent MSSA pna. As needed acetaminophen Endo: - Sliding-scale insulin if needed HEME: Leukocytosis Thrombocytosis Normocytic anemia Large IVC thrombus - Monitor CBC CMP coags. - IVC filter placed 09/12 due to inability to anticoagulate (thrombocytopenia) and cerebral edema. - Now platelets improved, on fondaparinux 7.5 mg daily from 09/18/16. 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 KP negative. - continue Arixtra DVT GI prophylaxis - IVC filter in place. Continue lansoprazole.fondaparinux 7.5 mg daily started 09/18/16 Lines: - PIV OOB to stretcher chair daily. 10/03 Updated patient's boyfriend at bedside. Aziza's mother has previously told me that I am allowed to update him. Level II follow-up Cathy Clark MD Oct 04, 2016 06:43
[2016-10-04] MEDS ORDERED: FUROSEMIDE 20 MG TAB OG-TUBE ONE (06:45)
--- NOTE | 2016-10-04 08:57 | HHI.IDPN ---
Subjective Subjective Remarks 20 year old admitted after she was found hanging. Has significant anoxic injury. Has trach and PEG. Has been Rxd for MSSA in sputum. Recurrent fevers. Remains on the vent. NO ssignificant neurologic improvement Notes reviewed D/W RN Temps better Tolerating CPAP Has done T-bar this weekend and tolerated well No change in neuro status Cultures reviewed Antibiotics Levaquin Lines PIV Past Medical History Previous UTI ?depression S/P trach and PEG Allergies: Coded Allergies: No Known Allergies (Unverified , 09/07/16) Objective . Vital Signs Date Time Temp Pulse Resp B/P (MAP) Pulse Ox O2 Delivery O2 Flow Rate FiO2 10/04/16 07:30 35 10/04/16 07:30 98 35 10/04/16 06:00 88 10/04/16 06:00 99.1 94 24 109/65 (80) 96 10/04/16 05:00 90 24 108/64 (79) 98 10/04/16 04:00 35 10/04/16 04:00 99.1 94 24 109/65 (80) 96 10/04/16 04:00 88 10/04/16 03:58 99 35 10/04/16 03:00 98.9 84 16 87/59 (68) 95 10/04/16 02:00 88 20 91/52 (65) 96 10/04/16 02:00 88 10/04/16 01:00 98 35 10/04/16 01:00 96 24 105/60 (75) 96 10/04/16 00:00 99.1 94 24 109/65 (80) 96 10/04/16 00:00 92 10/04/16 00:00 35 10/03/16 23:00 92 23 96/61 (73) 95 10/03/16 22:00 92 10/03/16 22:00 92 29 103/65 (78) 98 10/03/16 22:00 97 35 10/03/16 21:00 90 23 98/63 (75) 97 10/03/16 20:00 97.0 90 25 100/62 (75) 99 10/03/16 20:00 35 10/03/16 20:00 92 10/03/16 19:55 97 35 10/03/16 19:00 90 25 102/68 (79) 94 10/03/16 18:00 92 28 102/65 (77) 98 10/03/16 18:00 92 10/03/16 17:00 92 30 103/59 (74) 96 10/03/16 16:51 96 35 10/03/16 16:00 35 10/03/16 16:00 92 10/03/16 16:00 99.2 92 30 109/69 (82) 96 10/03/16 15:20 35 10/03/16 15:00 92 28 102/64 (77) 95 10/03/16 14:00 96 35 10/03/16 14:00 94 31 99/62 (74) 97 10/03/16 14:00 94 10/03/16 13:00 96 29 108/64 (79) 97 10/03/16 12:05 98.9 98 39 103/58 (73) 98 10/03/16 11:00 97 T-piece 35 10/03/16 11:00 96 27 105/67 (80) 98 10/03/16 10:00 96 29 97/64 (75) 97 10/03/16 09:00 92 36 99/66 (77) 96 . Laboratory Tests Test 10/03/16 04:54 White Blood Count 10.0 TH/MM3 Red Blood Count 3.17 MIL/MM3 Hemoglobin 8.3 GM/DL Hematocrit 25.4 % Mean Corpuscular Volume 80.0 FL Mean Corpuscular Hemoglobin 26.2 PG Mean Corpuscular Hemoglobin Concent 32.7 % Red Cell Distribution Width 13.9 % Platelet Count 435 TH/MM3 Mean Platelet Volume 7.6 FL Neutrophils (%) (Auto) 70.0 % Lymphocytes (%) (Auto) 15.4 % Monocytes (%) (Auto) 11.3 % Eosinophils (%) (Auto) 2.5 % Basophils (%) (Auto) 0.8 % Neutrophils # (Auto) 7.0 TH/MM3 Lymphocytes # (Auto) 1.5 TH/MM3 Monocytes # (Auto) 1.1 TH/MM3 Eosinophils # (Auto) 0.3 TH/MM3 Basophils # (Auto) 0.1 TH/MM3 CBC Comment DIFF FINAL Differential Comment Laboratory Tests Test 10/03/16 04:54 Sodium Level 141 MEQ/L Imaging Last 72 hours Impressions Chest X-Ray 09/30/16 0600 Signed Impressions: Service Date/Time: September 06:10 - CONCLUSION: The lungs are clear. Jose Armando Nathan MD Chest X-Ray 09/29/16 0600 Signed Impressions: Service Date/Time: Thursday, September 29, 2016 06:35 - CONCLUSION: Lungs are grossly clear. Jarred Kerr MD Physical Exam GENERAL: unresponsive on CPAP, not in respiratory distress. SKIN: Warm and dry. No generalized rash HEAD: Atraumatic. Normocephalic. No temporal wasting, or tenderness. EYES: Young conjunctiva. No petechia or hemorrhage. Pupils equal, round and reactive to light. No scleral icterus. No injection or drainage. EARS, NOSE AND THROAT: Nose without bleeding or purulent nasal discharge. Moist oral mucosa NECK: Supple, no rigidity. Tracheostomy site looks ok. CARDIOVASCULAR: Regular rate and rhythm. No murmurs, rubs or gallops heard RESPIRATORY: Rhonchi on R ABDOMEN: Soft, flat, not distended, no reaction to deep palpation. PEG site looks okay. Bowel sounds present and normoactive. No organomegaly. EXTREMITIES: No clubbing, cyanosis, or edema. No joint effusion. Well perfused and warm. NEUROLOGICAL: Unresponsive. 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
[2016-10-04] MEDS: BISACODYL 10 MG SUPP RECTAL SCH (09:00)
[2016-10-04] MEDS: ARTIFICIAL TEARS OPTH SOLN 15 ML BTL EACH EYE SCH ×2 (09:16→21:10)
[2016-10-04] MEDS: DOCUSATE SODIUM 100 MG/10 ML UDC G-TUBE SCH ×2 (09:16→21:09)
[2016-10-04] MEDS: POTASSIUM CHLORIDE 25 MEQ EFFERVESCENT TAB G-TUBE SCH (09:17)
[2016-10-04] MEDS: ASPIRIN 81 MG CHEW TAB CHEW SCH (09:17)
[2016-10-04] MEDS: LANSOPRAZOLE SOLUTAB 30 MG TAB NG SCH (09:17)
[2016-10-04] MEDS: LEVOFLOXACIN 750 MG TAB PEG SCH (09:18)
[2016-10-04] MEDS: SODIUM CHLORIDE 0.9% FLUSH 10 ML FLUSH IV FLUSH PRN (09:18)
[2016-10-04] MEDS: levETIRAcetam 500 MG/5 ML UDC NG SCH ×2 (09:18→21:10)
[2016-10-04] MEDS: SODIUM CHLORIDE 1 GRAM TAB G-TUBE SCH ×2 (09:19→21:10)
[2016-10-04] MEDS: PILL SPLITTER OTHER PRN (13:37)
[2016-10-04] MEDS ORDERED: POTASSIUM CHLORIDE 25 MEQ EFFERVESCENT TAB PO ONE (22:00)
[2016-10-05] VITALS (40 sets, daily range): BP systolic 95–122; BP diastolic 59–75; PULSE 84–100; RESP 12–34; TEMP 96.9–99.7; O2SAT 96–100
[2016-10-05] MEDS: PROPRANOLOL HCL 20 MG TAB G-TUBE SCH ×4 (02:06→20:47)
[2016-10-05] MEDS: clonazePAM 1 MG TAB G-TUBE SCH ×2 (02:06→14:00)
[2016-10-05] MEDS: CHLORHEXIDINE GLUCONATE 2 % 1 PACK (2 CLOTHS) TOP SCH (04:00)
[2016-10-05] MEDS: RESP: ALBUTEROL 2.5 MG/IPRATROPIUM 0.5 MG NEB (SCH) NEB ×4 (04:14→21:37)
[2016-10-05 05:29] LABS: AUTOMATED NEUTROPHIL # 8.5 TH/MM3 (1.8-7.7); BASOPHIL # 0.1 TH/MM3 (0-0.2); BASOPHIL % 0.5 % (0.0-2.0); EOSINOPHIL # 0.2 TH/MM3 (0-0.4); EOSINOPHIL % 1.6 % (0.0-4.0); HEMATOCRIT 27.5 % (35.0-46.0); HEMO FLAGS DIFF FINAL; LYMPH % 14.2 % (9.0-44.0); LYMPHOCYTE # 1.6 TH/MM3 (1.0-4.8); MEAN CELL VOLUME 80.2 FL (80.0-100.0); MEAN CORPUSCULAR HEMOGLOBIN 26.1 PG (27.0-34.0); MEAN CORPUSCULAR HGB CONC 32.6 % (32.0-36.0); MONO % 7.8 % (0.0-8.0); NEUT % 75.9 % (16.0-70.0); PLATELET COUNT 467 TH/MM3 (150-450); RED BLOOD COUNT 3.43 MIL/MM3 (4.00-5.30); RED CELL DISTRIBUTION WIDTH 14.1 % (11.6-17.2); WHITE BLOOD COUNT 11.3 TH/MM3 (4.0-11.0)
[2016-10-05 05:46] LABS: POTASSIUM 3.7 MEQ/L (3.5-5.1)
[2016-10-05 05:49] LABS: BICARBONATE 25.8 MEQ/L (21.0-32.0)
[2016-10-05 05:57] LABS: INTERNATIONAL NORMALIZED RATIO 1.3 RATIO; PROTHROMBIN TIME - PATIENT 14.7 SEC (9.8-11.6)
[2016-10-05] MEDS: FONDAPARINUX SODIUM 7.5 MG/0.6 ML SYRINGE SQ SCH (06:16)
--- NOTE | 2016-10-05 06:41 | HHI.CCPN ---
Subjective Remarks/Hospital Course 19 years old was brought in as a trauma alert. He has had to hanged herself and was found by her roommate. Unknown time of hanging. When fire department arrived patient was in asystole. CPR was started and one round of meds were given as per ACLS protocol. There was return of spontaneous circulation soon after that. Patient was brought in getting breaths by BV. She had a blood pressure and half way to arriving to the ER she started having some spontaneous respirations. She continued to be a GCS 3 when she arrived. She is admitted to critical care unit and therapeutic hypothermia protocol is initiated. 09/08/16: Patient achieving target temperature but developing severe shock. Levothroid had been increased to 30 mcg/m Mehdi-Synephrine added. Additional fluid boluses ordered currently on bicarbonate infusion additional one amp of bicarbonate given. Chest x-ray shows severe aspiration pneumonitis predominantly right lower lobe infiltrates. Zosyn 4.5 GM IV q8 started, give single dose of vanc 09/09/16: Patient is in the rewarming phase of hypothermia protocol. Once sedation was lightened and taken off the Nimbex, patient started developing tonic-clonic generalized seizure like activity. Bolused with a total of 6 mg Ativan in divided doses and restarted on Versed and propofol infusions. Loaded with Cerebyx 1 g and scheduled at 100 mg every 8 hours. Stat EEG pending. Neurology following 09/10/16: Remains on high dose of vasopressors, MRI brain shows evidence of anoxic brain injury. MRA neck bilateral common carotid narrowing. Start on aspirin get vascular surgery consult. No further seizure-like episodes noted. Pupils are equal bilaterally with slight withdrawal of right lower extremity to central pain. 09/11/16: Currently remains off all sedation in process. No noticeable improvement in neuro status, slight withdrawal x4. Aspirin started for bilateral common carotid narrowing-vascular surgery consult appreciated. Continue Cerebyx EEG sharp activity on eeg. MRI indicates diffuse anoxic brain injury with poor prognosis. EEG bihemispheric slowing and intermittent right central posterior sharp discharges which appear to be epileptiform. Dilantin level is therapeutic 09/12/16: Overnight had episodes myoclonus versus seizures. Neuro exam remains poor. No significant improvement. Low grade fever. Remains tachypneic on the ventilator. Restart propofol for vent synchrony 09/13/16: Neuro exam remains unchanged overnight. ICP monitor placed 09/12 for cerebral edema- ICP controlled with hyperosmolar therapy. 2 episodes of seizures vs myoclonus reported. Repeat EEG today. IVC filter placed 09/12/16 evening for large IVC thrombus. Unable to anticoagulate due to thrombocytopenia , cerebral edema-high risk of bleeding 09/14 EEG yesterday showed severe encephalopathy. ICP mainly 10-13 but intermittently spiked up to max of 22, improved with propofol bolus. Myoclonus noted with any tactile stimulation. 09/15 Comatose with myoclonus. ICP intermittently increased to 20, sometimes drifts down without intervention, sometimes improves with sedation. Extensor posturing. 09/16 Off continuous sedation. Comatose with myoclonus. Corneal reflex present on left, absent on right. ICP monitor removed today per NSG. 09/17: no significant neurologic improvement. off sedation. only intermittent ativan for myoclonus which improves symptoms. family meeting today, and family requests aggressive care, including trach/peg. 09/18: No change in neuro exam. Continued to spike high temperatures up to 102.5. CBC pending. I will discontinue Cerebyx start Keppra, check gallbladder ultrasound again and placed on empiric cefepime and single dose of vancomycin. Sputum culture Gram stain shows few GPC. On cooling blanket, and Tylenol. Motrin added. s/p Trach yesterday 09/19: no improvements or changes. sodium trending down. repeat sputum culture 09/17 growing staph aureus. KP pending. 09/20: No change in neuro exam. Overnight spike fever 103 again. Patient has bloody secretion from bilateral nares-she may have some acute sinusitis. Continue broad-spectrum antibiotics. Discontinue NG tube as the patient is getting PEG today 09/21: PEG yesterday. no changes. sputum again growing MSSA. 09/22: Colonization, no pneumonia. 09/23: No change in neuro status. 09/26: Halicat from floor after mucus plug. Back on vent. Sats marginal. 09/27: Remains on PRVC +8 ventilation. Resting in bed in no acute distress. Continues with generalized myoclonus. Withdraws right upper extremity only for me. RN stated left upper extremity. Gaze to right. 09/28: PEEP decreased to 5. FiO2 decreased to 40%. Continues with generalized myoclonus. Vaguely withdrawals to noxious stimuli. Tmax 101.5. Tolerating tube feeds better. 09/29: Transferred from [facility] to [facility] yesterday night. No acute events overnight. Chest x-ray clear on my review. Tmax 102.5. WBC count pending 09/30: Fever trending down. WBC count has normalized. Hemoglobin trending down now 8. Will continue Arixtra without changing to Coumadin. Partial eye opening to central pain 10/01: Tolerated CPAP for approximately 4 hours yesterday. Low-grade fever 100.5. No other acute events overnight. Having bowel movement 10/02 Was out of bed to stretcher chair 4 hours yesterday. Tolerated C Pap 10 over 5 for 6 hours. Was taken off T piece after 30 minutes due to Tachypnea and tachycardia. Temp max 100.0. White blood cell count 12.7. U/a occasional WBC clumps. Nursing states some leakage around the Benjamin. 2 large bowel movements overnight 10/03 Out of bed to stretchr for 4 hours. Tolerated C Pap and then T piece for 2 hours. Does not track. T99.2 10/04 No neurologic change. Subjective: 10/05: Afebrile. Bite-block in place. Positive clots from back of oropharynx with suctioning. Tolerating tube feeding. Positive BM. On PRVC currently. Lasted 2 hours on PSV trial yesterday. Objective Vital Signs Date Time Temp Pulse Resp B/P (MAP) Pulse Ox O2 Delivery O2 Flow Rate FiO2 10/05/16 06:00 96 10/05/16 06:00 16 113/71 (85) 97 10/05/16 04:12 35 10/05/16 04:00 96.9 10/04/16 14:10 T-piece Result Diagram: 10/05/16 0435 10/05/16 0435 Other Results Microbiology Date/Time Source Procedure Growth Status 09/28/16 15:15 Blood Peripheral Aerobic Blood Culture - Final NO GROWTH IN 5 DAYS Complete 09/28/16 15:15 Blood Peripheral Anaerobic Blood Culture - Final NO GROWTH IN 5 DAYS Complete 09/30/16 11:30 Stool Stool Stool Occult Blood (JULIANNE) - Final HEMOCCULT NEGATIVE Complete 09/27/16 18:30 Sputum Endotracheal Gram Stain - Final Complete 09/27/16 18:30 Sputum Culture - Final Staphylococcus Aureus Complete 09/29/16 08:08 Urine Catheterized Urine Urine Culture - Final NO GROWTH IN 48 HOURS. Complete Imaging Last Impressions Chest X-Ray 10/02/16 0600 Signed Impressions: Service Date/Time: Sunday, October 02, 2016 06:20 - CONCLUSION: 1. Slight improvement in airspace disease on the right since September 30. Tracheostomy in satisfactory position. Gideon Brown MD Liver Ultrasound 09/18/16 0000 Signed Impressions: Service Date/Time: Sunday, September 18, 2016 09:27 - CONCLUSION: 1. There is sludge within the gallbladder. No other findings are present to indicate acute cholecystitis. 2. Mild splenomegaly. 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 This is nonocclusive. A retrievable IVC filter was deployed below the main hepatic veins but it was necessary to cross an accessory right hepatic vein. Jose Armando Jackson Jr., MD Head CT 09/12/16 0000 Signed Impressions: Service Date/Time: Monday, September 12, 2016 09:29 - CONCLUSION: Mild loss of lemos matter definition that can be seen with increasing intracranial pressure. Ricki Cavazos MD FACR Neck Magnetic Resonance Angiography 09/09/16 0000 Signed Impressions: Service Date/Time: August 16:02 - CONCLUSION: 1. Moderate to severe smooth narrowing of the left common carotid artery and also moderate narrowing of the proximal right common carotid artery as well as narrowing of both proximal vertebral arteries likely related to recent hanging. Etiology could be related to vasospasm or recent extrinsic prolonged compression. The distal internal carotid arteries and vertebral artery have more normal calibers. Findings called to Dr. Bhatt at the time of dictation. Gideon Brown MD Cervical Spine MRI 09/09/16 0000 Signed Impressions: Service Date/Time: August 16:02 - CONCLUSION: 1. Very minimal degenerative disc disease at C5-6. 2. No acute fracture or prevertebral soft tissue swelling. 3. No focal cervical cord abnormality. Tray Santiago MD Brain MRI 09/09/16 0000 Signed Impressions: Service Date/Time: August 16:02 - CONCLUSION: 1. Diffuse FLAIR-weighted hyperintensities involving the caudate nuclei bilaterally, bilateral hummel radiata, as well as the bilateral parietal and occipital cortex consistent with the patient's clinical diagnosis of anoxic encephalopathy. 2. No acute hemorrhage, midline shift, extra-axial fluid collection or abnormal enhancement. 3. Small fluid level within the right sphenoid sinus. Tray Santiago MD Cervical Spine CT 09/07/16 1800 Signed Impressions: Service Date/Time: Wednesday, September 07, 2016 18:06 - CONCLUSION: 1. No fracture or subluxation. 2. Scattered groundglass nodules throughout the upper lobes, nonspecific but can be seen with hypersensitivity pneumonitis. Artem Madera MD Objective Remarks GENERAL: 20-year-old female,laying in bed on mechanical ventilation via tracheostomy in no acute distress SKIN: Warm and dry. No rash HEAD: Normocephalic. Atraumatic. EYES: About 2 mm bilaterally and reactive. No scleral icterus. No injection or drainage. Ears, nose, throat: Normal external anatomy. Oropharynx with some bloody secretions.. NECK: trachea midline. trach site clean, dry. CARDIOVASCULAR: RRR. S1, S2 no S4. Without murmur. RESPIRATORY: Few scattered crackles appreciated bilaterally throughout anterior and posterior lung phillips. No wheezing GASTROINTESTINAL: Abdomen soft, non-tender, distended. G-tube is clean dry and intact MUSCULOSKELETAL: Mod edema over the dorsum of left hand, trace/1+ edema all extremities. NEURO: Positive myoclonus with stimulus. Patient does have corneal reflexes bilaterally. Positive gag with suctioning.. A/P Assessment and Plan NEURO/PSYCH: Severe anoxic brain injury Saud common carotid narrowing Attempted suicide by hanging Seizure, Myoclonus Depression - MRI shows evidence of diffuse anoxic brain injury including weighted hyperintensity bilateral caudate, bilateral Hummel radiata, bilateral occipital and parietal lobes. - MRA neck bilateral common carotid narrowing-vascular surgery consulted, no intervention. started aspirin 09/10 - CT 09/12-loss salguero/white matter differentiation c/w cerebral edema. ICP monitor 09/12- 09/16. - EEG 09/10 bilateral sharp activity, on Dilantin. Level therapeutic 09/12. DCd Dilantin 09/18/16 due high fever, started Keppra - EEG 09/11 Encephalopathy, no sz. - EEG 09/13severe encephalopathy. (delta waves) - s/p induced hypothermia. - Neurology Dr. Valdez has followed. He states prognosis is poor and recommended comfort measures. - NSG Dr. José states poor prognosis, recommends comfort care. - Toxicology negative - Clonazepam 0.5 mg by PEG every 12 hours scheduled for myoclonus - Lorazepam 1 mg IV every 1 hour for symptomatic control for severe myoclonus. - Acetaminophen 650 mg/20 cc every 6 hours when necessary fever/pain 1 through 4 Oxycodone 5mg every 6 hours PRN pain 5-10. Fentanyl 50 g every 1 hour prn breakthrough pain - Levetiracetam 1000 mg per PEG twice a day seizure CV: Status post cardiac arrest Hemodynamic stable - Currently not requiring vasopressors and/or anti-hypertensives. - On propranolol 20 mg every 6 hours (tremors/tachycardia) started 09/29, hold orders place for hemodynamic parameters. Resp: Acute hypoxemic respiratory failure Pre-hospital Aspiration pneumonitis Mucous plugging - PRV, /02/18/39 - ventilator bundle. - Albuterol/ipratropium aerosols every 6 hours and albuterol aerosols when necessary s/p trach 09/17/16. Vijay Jackson and Kunal. Removed trach sutures 10/02. PSV trials as clinically indicated GI/FEN: Transaminitis most likely from shock, resolving. - Tube feedings Jevity 1.5 at 50 L per hour per nutrition recommendations. - s/p PEG 09/20 - repeat GB u/s without signs of cholecystitis 09/18 -Continue sodium chloride 1gram bid - Liver ultrasound 09/12large nonocclusive thrombus and IVC. Renal/: Cystitis Maintain Benjamin catheter ID: Pyrexia MSSA pneumonia Sputum with MSSA 09/08. 09/17 and 09/27 normal julio Fever May be secondary to IVC thrombosis and central neuro Currently Levaquin to completed 2 weeks antibiotic. Endo: - Sliding-scale insulin if needed to maintain euglycemia/blood sugars less than 185 HEME: Leukocytosis Thrombocytosis Normocytic anemia Large IVC thrombus - Monitor CBC CMP coags. - IVC filter placed 09/12 due to inability to anticoagulate (thrombocytopenia) and cerebral edema. - Now platelets improved, on fondaparinux 7.5 mg daily from 09/18/16. 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 KP negative. DVT GI prophylaxis - IVC filter in place. Continue lansoprazole 30 mg daily/.fondaparinux 7.5 mg daily started 09/18/16 Lines: - PIV Level I Reynaldo Johnson MD Oct 05, 2016 06:41
[2016-10-05] MEDS: ARTIFICIAL TEARS OPTH SOLN 15 ML BTL EACH EYE SCH ×2 (09:00→20:45)
[2016-10-05] MEDS: LANSOPRAZOLE SOLUTAB 30 MG TAB NG SCH (09:16)
[2016-10-05] MEDS: POTASSIUM CHLORIDE 25 MEQ EFFERVESCENT TAB G-TUBE SCH (09:18)
[2016-10-05] MEDS: ASPIRIN 81 MG CHEW TAB CHEW SCH (09:19)
[2016-10-05] MEDS: LEVOFLOXACIN 750 MG TAB PEG SCH (09:22)
[2016-10-05] MEDS: SODIUM CHLORIDE 1 GRAM TAB G-TUBE SCH ×2 (09:23→20:45)
[2016-10-05] MEDS: BISACODYL 10 MG SUPP RECTAL SCH (09:23)
[2016-10-05] MEDS: levETIRAcetam 500 MG/5 ML UDC NG SCH ×2 (09:23→20:45)
[2016-10-05] MEDS: DOCUSATE SODIUM 100 MG/10 ML UDC G-TUBE SCH ×2 (09:24→20:45)
--- NOTE | 2016-10-05 13:48 | HHI.HCPN ---
Reason for visit a. To assist with evaluation and management of symptoms including: Dyspnea , possible pain; encephalopathy; myoclonus. b. To assist medical decision maker(s) with: better understanding of current medical conditions; weighing benefits/burdens of medical treatment options; making medical treatment decisions. . Subjective/Interval History Reported clot from back of oropharynx, bite block in place. On PRVC through trach, tolerating tube feedings. Not responsive. Family/friend interactions Met with pt's mother and family. Both endorse they feel pt there is some changes in eye movement, and possibly she is responding. Still awaiting for "miracle." I did restate just as before, her chances for meaningful recovery is poor. Listen to their mady in that a "miracle" will happen. Listen to their struggles. Goals remain aggressive. Advance Directives Living Will: Never completed Health Care Surrogate: Never completed Durable Power of Absorption And Adsorption Engineer: Never completed Objective Vital Signs Date Time Temp Pulse Resp B/P (MAP) Pulse Ox O2 Delivery O2 Flow Rate FiO2 10/05/16 11:12 98 T-piece 8.00 40 10/05/16 07:59 35 10/05/16 07:54 98 35 10/05/16 06:00 96 10/05/16 06:00 90 16 113/71 (85) 97 10/05/16 05:00 88 12 107/59 (75) 96 10/05/16 04:12 97 35 10/05/16 04:00 35 10/05/16 04:00 96.9 92 15 119/71 (87) 97 10/05/16 04:00 96 10/05/16 03:00 94 22 121/68 (85) 97 10/05/16 02:00 92 10/05/16 02:00 96 22 122/70 (87) 97 10/05/16 01:08 97 35 10/05/16 01:00 94 25 107/75 (86) 97 10/05/16 00:00 96.9 92 15 119/71 (87) 97 10/05/16 00:00 35 10/05/16 00:00 92 10/04/16 23:00 96 28 108/68 (81) 97 10/04/16 22:01 99 35 10/04/16 22:00 94 32 108/67 (81) 99 10/04/16 21:00 92 34 105/69 (81) 97 10/04/16 20:00 35 10/04/16 20:00 96.1 92 23 109/68 (82) 98 10/04/16 19:29 99 35 10/04/16 19:00 92 26 113/67 (82) 97 10/04/16 18:01 90 27 111/69 (83) 99 10/04/16 18:00 90 10/04/16 17:09 90 25 113/72 (86) 99 10/04/16 16:29 98 35 10/04/16 16:01 99.4 94 31 107/67 (80) 96 10/04/16 16:00 35 10/04/16 16:00 92 10/04/16 15:01 90 26 113/70 (84) 96 10/04/16 14:10 97 T-piece 35 10/04/16 14:01 88 25 112/67 (82) 98 10/04/16 14:00 88 Physical Exam CONSTITUTIONAL/GENERAL: This is an adequately nourished patient, in no apparent distress, t-piece TUBES/LINES/DRAINS: oral bite block in place, Tracheostomy; PEG; peripheral ivs. SCDs, multipurpose boots. SKIN: No jaundice, rashes, or lesions. No wounds seen anteriorly. Skin temperature appropriate. Not diaphoretic. EYES: eyes closed. ENT: Nose without bleeding or purulent drainage. NECK: Tracheostomy CARDIOVASCULAR: Tachycardic ; Regular rhythm without murmurs, gallops, or rubs. No JVD. Peripheral pulses symmetric. RESPIRATORY/CHEST: Symmetric, unlabored respirations. No wheezes or crackles. GASTROINTESTINAL: Abdomen soft, nondistended. PEG tube in place and functioning. MUSCULOSKELETAL: Extremities without clubbing, cyanosis. 1+ edema of the distal extremities. No mottling or clubbing. NEUROLOGICAL: Unresponsive to voice, touch, or painful stimuli. PSYCHIATRIC: Unable to evaluate due to her clinical condition . Diagnostic Tests Laboratory Laboratory Tests Test 10/03/16 04:54 10/04/16 04:33 10/05/16 04:35 White Blood Count 10.0 TH/MM3 (4.0-11.0) 11.3 TH/MM3 (4.0-11.0) Red Blood Count 3.17 MIL/MM3 (4.00-5.30) 3.43 MIL/MM3 (4.00-5.30) Hemoglobin 8.3 GM/DL (11.6-15.3) 9.0 GM/DL (11.6-15.3) Hematocrit 25.4 % (35.0-46.0) 27.5 % (35.0-46.0) Mean Corpuscular Volume 80.0 FL (80.0-100.0) 80.2 FL (80.0-100.0) Mean Corpuscular Hemoglobin 26.2 PG (27.0-34.0) 26.1 PG (27.0-34.0) Mean Corpuscular Hemoglobin Concent 32.7 % (32.0-36.0) 32.6 % (32.0-36.0) Red Cell Distribution Width 13.9 % (11.6-17.2) 14.1 % (11.6-17.2) Platelet Count 435 TH/MM3 (150-450) 467 TH/MM3 (150-450) Mean Platelet Volume 7.6 FL (7.0-11.0) 7.9 FL (7.0-11.0) Neutrophils (%) (Auto) 70.0 % (16.0-70.0) 75.9 % (16.0-70.0) Lymphocytes (%) (Auto) 15.4 % (9.0-44.0) 14.2 % (9.0-44.0) Monocytes (%) (Auto) 11.3 % (0.0-8.0) 7.8 % (0.0-8.0) Eosinophils (%) (Auto) 2.5 % (0.0-4.0) 1.6 % (0.0-4.0) Basophils (%) (Auto) 0.8 % (0.0-2.0) 0.5 % (0.0-2.0) Neutrophils # (Auto) 7.0 TH/MM3 (1.8-7.7) 8.5 TH/MM3 (1.8-7.7) Lymphocytes # (Auto) 1.5 TH/MM3 (1.0-4.8) 1.6 TH/MM3 (1.0-4.8) Monocytes # (Auto) 1.1 TH/MM3 (0-0.9) 0.9 TH/MM3 (0-0.9) Eosinophils # (Auto) 0.3 TH/MM3 (0-0.4) 0.2 TH/MM3 (0-0.4) Basophils # (Auto) 0.1 TH/MM3 (0-0.2) 0.1 TH/MM3 (0-0.2) CBC Comment DIFF FINAL DIFF FINAL Differential Comment Prothrombin Time 22.0 SEC (9.8-11.6) 16.5 SEC (9.8-11.6) 14.7 SEC (9.8-11.6) Prothromb Time International Ratio 1.9 RATIO 1.5 RATIO 1.3 RATIO Sodium Level 141 MEQ/L (136-145) 138 MEQ/L (136-145) Blood Urea Nitrogen 17 MG/DL (7-18) Creatinine 0.55 MG/DL (0.50-1.00) Random Glucose 117 MG/DL (74-106) Calcium Level 9.2 MG/DL (8.5-10.1) Potassium Level 3.7 MEQ/L (3.5-5.1) Chloride Level 103 MEQ/L (98-107) Carbon Dioxide Level 25.8 MEQ/L (21.0-32.0) Anion Gap 9 MEQ/L (5-15) Estimat Glomerular Filtration Rate 142 ML/MIN (>89) Result Diagram: 10/05/16 0435 10/05/16 0435 Imaging Last Impressions Chest X-Ray 10/02/16 0600 Signed Impressions: Service Date/Time: Sunday, October 02, 2016 06:20 - CONCLUSION: 1. Slight improvement in airspace disease on the right since September 30. Tracheostomy in satisfactory position. Gideon Brown MD Liver Ultrasound 09/18/16 0000 Signed Impressions: Service Date/Time: Sunday, September 18, 2016 09:27 - CONCLUSION: 1. There is sludge within the gallbladder. No other findings are present to indicate acute cholecystitis. 2. Mild splenomegaly. 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 This is nonocclusive. A retrievable IVC filter was deployed below the main hepatic veins but it was necessary to cross an accessory right hepatic vein. Jose Armando Jackson Jr., MD Head CT 09/12/16 0000 Signed Impressions: Service Date/Time: Monday, September 12, 2016 09:29 - CONCLUSION: Mild loss of lemos matter definition that can be seen with increasing intracranial pressure. Ricki Cavazos MD FACR Neck Magnetic Resonance Angiography 09/09/16 0000 Signed Impressions: Service Date/Time: August 16:02 - CONCLUSION: 1. Moderate to severe smooth narrowing of the left common carotid artery and also moderate narrowing of the proximal right common carotid artery as well as narrowing of both proximal vertebral arteries likely related to recent hanging. Etiology could be related to vasospasm or recent extrinsic prolonged compression. The distal internal carotid arteries and vertebral artery have more normal calibers. Findings called to Dr. Bhatt at the time of dictation. Gideon Brown MD Cervical Spine MRI 09/09/16 0000 Signed Impressions: Service Date/Time: August 16:02 - CONCLUSION: 1. Very minimal degenerative disc disease at C5-6. 2. No acute fracture or prevertebral soft tissue swelling. 3. No focal cervical cord abnormality. Tray Santiago MD Brain MRI 09/09/16 0000 Signed Impressions: Service Date/Time: August 16:02 - CONCLUSION: 1. Diffuse FLAIR-weighted hyperintensities involving the caudate nuclei bilaterally, bilateral hummel radiata, as well as the bilateral parietal and occipital cortex consistent with the patient's clinical diagnosis of anoxic encephalopathy. 2. No acute hemorrhage, midline shift, extra-axial fluid collection or abnormal enhancement. 3. Small fluid level within the right sphenoid sinus. Tray Santiago MD Cervical Spine CT 09/07/16 1800 Signed Impressions: Service Date/Time: Wednesday, September 07, 2016 18:06 - CONCLUSION: 1. No fracture or subluxation. 2. Scattered groundglass nodules throughout the upper lobes, nonspecific but can be seen with hypersensitivity pneumonitis. Artem Madera MD Procedures [place] bolt 09/12/16 (and subsequent removal) Tracheostomy PEG tube placement . 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 . (2) pain 0-10 Scale: Unable to quantify Comment: Possible sources of pain include trauma from hanging; tracheostomy wound; prolonged bedbound status; venous access catheters; anton; etc. Pertinent Non-Medical Issues Psychosocial: Unmarried, no children. Spiritual: Not spiritual or oriental orthodox, but family reports that they are Yazdanism and quite spiritual. Their velvetbi has participated in care during this hospitalization. has told mother "she should give it a month." Legal: The patient lacks capacity for decision-making and will not regain that capacity. The patient's father has not been a part of her life since , and his whereabouts are unknown. The patient is unmarried, and her mother is thus the decision making proxy. Ethical issues impacting care: None . Important Contacts Mother: Agnieszka"Reymundo" [facility] [phone] Grandmother: Loy "Edie" [facility] [phone] Boyfriend: Seth "Jake" [facility] [phone] . Prognosis The patient's prognosis is poor, and clearly she will not recover significant brain function. If the goals become comfort oriented, she is appropriate for withdrawal of life support, and hospice care. . Code Status: Full Code Plan ==FULL CODE, per patient's mother on 09/17/16. The patient's mother notes that her Yazdanism tradition "would not allow me to make her a DNR." has told mother to "give it a month." ==GOALS: The patient's mother has a clear understanding of the brain injury and poor prognosis, but wants to "allow more time for a possible miracle." Goals remain the same aggressive at this time. had told her "to give it a month." ==DECISION-MAKING: The patient lacks capacity for decision-making and there is no reasonable medical probability of recovering capacity. There has been no contact with the patient's father since the patient was born, and the decision making proxy is the patient's mother "Reymundo." ==Pain: Has PRN oxycodone and fentanyl in place. The prn fentanyl appears to be be given to supplement scheduled clonazepam and prn lorazepam for myoclonus. . No further recommendations at this time. ==Dyspnea is being managed via trach - to t-tube. No further recommendations at this time. ==Encephalopathy is likely secondary to the anoxic injury with neurology feeling there is poor prognosis for any type of meaningful recovery. I have no further medication recommendations at this time. 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 ==Palliative Care will continue to follow the patient during this hospitalization to assist with symptom management and to further clarify goals of medical treatment as the clinical course evolves. . Attestation To help prompt me to consider important information that might be impacting today's encounter and assessment, information from prior notes written by myself or my colleagues may have been "brought forward" into today's note. My signature on this note, however, is an attestation that I personally performed the exam, history, and/or decision-making noted today, and, unless otherwise indicated, the interactions with patient, family, and staff as well as the review of records all occurred today. I also attest that the listed assessment and stated plan reflect my best clinical judgment today based on the combination of historical information, prior notes, and today's exam/ interactions. When time spent is documented, it refers only to time spent today by the signer, or if indicated, combined time spent today by collaborating physician/nurse practitioner. Israel Nolasco MD Oct 05, 2016 13:48
[2016-10-05] MEDS: ACETAMINOPHEN 650 MG/20.3 ML UDC G-TUBE PRN (16:31)
[2016-10-06] VITALS (40 sets, daily range): BP systolic 100–114; BP diastolic 63–78; PULSE 84–102; RESP 21–51; TEMP 97.5–99.2; O2SAT 95–100
[2016-10-06] MEDS: PROPRANOLOL HCL 20 MG TAB G-TUBE SCH ×4 (01:50→18:33)
[2016-10-06] MEDS: CHLORHEXIDINE GLUCONATE 2 % 1 PACK (2 CLOTHS) TOP SCH (01:51)
[2016-10-06] MEDS ORDERED: clonazePAM 1 MG TAB G-TUBE SCH (02:00)
[2016-10-06] MEDS: RESP: ALBUTEROL 2.5 MG/IPRATROPIUM 0.5 MG NEB (SCH) NEB ×4 (03:48→22:16)
[2016-10-06 05:20] LABS: BASOPHIL % 0.4 % (0.0-2.0); EOSINOPHIL # 0.2 TH/MM3 (0-0.4); EOSINOPHIL % 1.9 % (0.0-4.0); HEMATOCRIT 27.8 % (35.0-46.0); HEMO FLAGS DIFF FINAL; LYMPH % 16.3 % (9.0-44.0); LYMPHOCYTE # 1.8 TH/MM3 (1.0-4.8); MEAN CELL VOLUME 80.5 FL (80.0-100.0); MEAN CORPUSCULAR HGB CONC 31.1 % (32.0-36.0); MONO % 9.7 % (0.0-8.0); NEUT % 71.7 % (16.0-70.0); PLATELET COUNT 410 TH/MM3 (150-450); RED BLOOD COUNT 3.45 MIL/MM3 (4.00-5.30); WHITE BLOOD COUNT 11.1 TH/MM3 (4.0-11.0)
[2016-10-06 05:34] LABS: POTASSIUM 3.8 MEQ/L (3.5-5.1)
[2016-10-06 05:38] LABS: BICARBONATE 26.5 MEQ/L (21.0-32.0); MAGNESIUM 2.2 MG/DL (1.5-2.5)
[2016-10-06] MEDS: FONDAPARINUX SODIUM 7.5 MG/0.6 ML SYRINGE SQ SCH (06:08)
[2016-10-06 06:37] LABS: INTERNATIONAL NORMALIZED RATIO 1.2 RATIO; PROTHROMBIN TIME - PATIENT 13.4 SEC (9.8-11.6)
[2016-10-06] MEDS: LANSOPRAZOLE SOLUTAB 30 MG TAB NG SCH (08:54)
[2016-10-06] MEDS: POTASSIUM CHLORIDE 25 MEQ EFFERVESCENT TAB G-TUBE SCH (08:54)
[2016-10-06] MEDS: LEVOFLOXACIN 750 MG TAB PEG SCH (08:54)
[2016-10-06] MEDS: ASPIRIN 81 MG CHEW TAB CHEW SCH (08:55)
[2016-10-06] MEDS: BISACODYL 10 MG SUPP RECTAL SCH (08:55)
[2016-10-06] MEDS: DOCUSATE SODIUM 100 MG/10 ML UDC G-TUBE SCH ×2 (08:55→22:05)
[2016-10-06] MEDS: ARTIFICIAL TEARS OPTH SOLN 15 ML BTL EACH EYE SCH ×2 (08:55→22:05)
[2016-10-06] MEDS: levETIRAcetam 500 MG/5 ML UDC NG SCH ×2 (08:55→22:08)
[2016-10-06] MEDS: SODIUM CHLORIDE 1 GRAM TAB G-TUBE SCH ×2 (08:55→22:07)
[2016-10-06] MEDS: SODIUM CHLORIDE 0.9% FLUSH 10 ML FLUSH IV FLUSH PRN ×2 (08:56→22:06)
--- NOTE | 2016-10-06 12:02 | HHI.CCPN ---
Subjective Remarks/Hospital Course 19 years old was brought in as a trauma alert. He has had to hanged herself and was found by her roommate. Unknown time of hanging. When fire department arrived patient was in asystole. CPR was started and one round of meds were given as per ACLS protocol. There was return of spontaneous circulation soon after that. Patient was brought in getting breaths by BV. She had a blood pressure and half way to arriving to the ER she started having some spontaneous respirations. She continued to be a GCS 3 when she arrived. She is admitted to critical care unit and therapeutic hypothermia protocol is initiated. 09/08/16: Patient achieving target temperature but developing severe shock. Levothroid had been increased to 30 mcg/m Mehdi-Synephrine added. Additional fluid boluses ordered currently on bicarbonate infusion additional one amp of bicarbonate given. Chest x-ray shows severe aspiration pneumonitis predominantly right lower lobe infiltrates. Zosyn 4.5 GM IV q8 started, give single dose of vanc 09/09/16: Patient is in the rewarming phase of hypothermia protocol. Once sedation was lightened and taken off the Nimbex, patient started developing tonic-clonic generalized seizure like activity. Bolused with a total of 6 mg Ativan in divided doses and restarted on Versed and propofol infusions. Loaded with Cerebyx 1 g and scheduled at 100 mg every 8 hours. Stat EEG pending. Neurology following 09/10/16: Remains on high dose of vasopressors, MRI brain shows evidence of anoxic brain injury. MRA neck bilateral common carotid narrowing. Start on aspirin get vascular surgery consult. No further seizure-like episodes noted. Pupils are equal bilaterally with slight withdrawal of right lower extremity to central pain. 09/11/16: Currently remains off all sedation in process. No noticeable improvement in neuro status, slight withdrawal x4. Aspirin started for bilateral common carotid narrowing-vascular surgery consult appreciated. Continue Cerebyx EEG sharp activity on eeg. MRI indicates diffuse anoxic brain injury with poor prognosis. EEG bihemispheric slowing and intermittent right central posterior sharp discharges which appear to be epileptiform. Dilantin level is therapeutic 09/12/16: Overnight had episodes myoclonus versus seizures. Neuro exam remains poor. No significant improvement. Low grade fever. Remains tachypneic on the ventilator. Restart propofol for vent synchrony 09/13/16: Neuro exam remains unchanged overnight. ICP monitor placed 09/12 for cerebral edema- ICP controlled with hyperosmolar therapy. 2 episodes of seizures vs myoclonus reported. Repeat EEG today. IVC filter placed 09/12/16 evening for large IVC thrombus. Unable to anticoagulate due to thrombocytopenia , cerebral edema-high risk of bleeding 09/14 EEG yesterday showed severe encephalopathy. ICP mainly 10-13 but intermittently spiked up to max of 22, improved with propofol bolus. Myoclonus noted with any tactile stimulation. 09/15 Comatose with myoclonus. ICP intermittently increased to 20, sometimes drifts down without intervention, sometimes improves with sedation. Extensor posturing. 09/16 Off continuous sedation. Comatose with myoclonus. Corneal reflex present on left, absent on right. ICP monitor removed today per NSG. 09/17: no significant neurologic improvement. off sedation. only intermittent ativan for myoclonus which improves symptoms. family meeting today, and family requests aggressive care, including trach/peg. 09/18: No change in neuro exam. Continued to spike high temperatures up to 102.5. CBC pending. I will discontinue Cerebyx start Keppra, check gallbladder ultrasound again and placed on empiric cefepime and single dose of vancomycin. Sputum culture Gram stain shows few GPC. On cooling blanket, and Tylenol. Motrin added. s/p Trach yesterday 09/19: no improvements or changes. sodium trending down. repeat sputum culture 09/17 growing staph aureus. KP pending. 09/20: No change in neuro exam. Overnight spike fever 103 again. Patient has bloody secretion from bilateral nares-she may have some acute sinusitis. Continue broad-spectrum antibiotics. Discontinue NG tube as the patient is getting PEG today 09/21: PEG yesterday. no changes. sputum again growing MSSA. 09/22: Colonization, no pneumonia. 09/23: No change in neuro status. 09/26: Halicat from floor after mucus plug. Back on vent. Sats marginal. 09/27: Remains on PRVC +8 ventilation. Resting in bed in no acute distress. Continues with generalized myoclonus. Withdraws right upper extremity only for me. RN stated left upper extremity. Gaze to right. 09/28: PEEP decreased to 5. FiO2 decreased to 40%. Continues with generalized myoclonus. Vaguely withdrawals to noxious stimuli. Tmax 101.5. Tolerating tube feeds better. 09/29: Transferred from [facility] to [facility] yesterday night. No acute events overnight. Chest x-ray clear on my review. Tmax 102.5. WBC count pending 09/30: Fever trending down. WBC count has normalized. Hemoglobin trending down now 8. Will continue Arixtra without changing to Coumadin. Partial eye opening to central pain 10/01: Tolerated CPAP for approximately 4 hours yesterday. Low-grade fever 100.5. No other acute events overnight. Having bowel movement 10/02 Was out of bed to stretcher chair 4 hours yesterday. Tolerated C Pap 10 over 5 for 6 hours. Was taken off T piece after 30 minutes due to Tachypnea and tachycardia. Temp max 100.0. White blood cell count 12.7. U/a occasional WBC clumps. Nursing states some leakage around the Benjamin. 2 large bowel movements overnight 10/03 Out of bed to stretchr for 4 hours. Tolerated C Pap and then T piece for 2 hours. Does not track. T99.2 10/04 No neurologic change. 10/05: Afebrile. Bite-block in place. Positive clots from back of oropharynx with suctioning. Tolerating tube feeding. Positive BM. On PRVC currently. Lasted 2 hours on PSV trial yesterday. Subjective: 10/06: Some bleeding from the mouth. Will attempt to obtain more bite-block from [facility] as not available this facility in place in AM. Family complaining of some erythema around right helix, antihelix and lobule. Afebrile. Currently on T piece trial since 9 AM. Objective Vital Signs Date Time Temp Pulse Resp B/P (MAP) Pulse Ox O2 Delivery O2 Flow Rate FiO2 10/06/16 11:45 98 31 95 10/06/16 11:40 113/78 (90) 10/06/16 11:01 99.2 10/06/16 11:00 T-piece 8.00 40 Intake and Output 10/06/16 10/06/16 10/06/16 07:59 15:59 23:59 Intake Total 381 ml Output Total 3 ml Balance 378 ml Result Diagram: 10/06/16 0455 10/06/16 0455 Other Results Microbiology Date/Time Source Procedure Growth Status 09/28/16 15:15 Blood Peripheral Aerobic Blood Culture - Final NO GROWTH IN 5 DAYS Complete 09/28/16 15:15 Blood Peripheral Anaerobic Blood Culture - Final NO GROWTH IN 5 DAYS Complete 09/30/16 11:30 Stool Stool Stool Occult Blood (JULIANNE) - Final HEMOCCULT NEGATIVE Complete 09/27/16 18:30 Sputum Endotracheal Gram Stain - Final Complete 09/27/16 18:30 Sputum Culture - Final Staphylococcus Aureus Complete 09/29/16 08:08 Urine Catheterized Urine Urine Culture - Final NO GROWTH IN 48 HOURS. Complete Imaging Last Impressions Chest X-Ray 10/02/16 0600 Signed Impressions: Service Date/Time: Sunday, October 02, 2016 06:20 - CONCLUSION: 1. Slight improvement in airspace disease on the right since September 30. Tracheostomy in satisfactory position. Gideon Brown MD Liver Ultrasound 09/18/16 0000 Signed Impressions: Service Date/Time: Sunday, September 18, 2016 09:27 - CONCLUSION: 1. There is sludge within the gallbladder. No other findings are present to indicate acute cholecystitis. 2. Mild splenomegaly. 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 This is nonocclusive. A retrievable IVC filter was deployed below the main hepatic veins but it was necessary to cross an accessory right hepatic vein. Jose Armando Jackson Jr., MD Head CT 09/12/16 0000 Signed Impressions: Service Date/Time: Monday, September 12, 2016 09:29 - CONCLUSION: Mild loss of lemos matter definition that can be seen with increasing intracranial pressure. Ricki Cavazos MD FACR Neck Magnetic Resonance Angiography 09/09/16 0000 Signed Impressions: Service Date/Time: August 16:02 - CONCLUSION: 1. Moderate to severe smooth narrowing of the left common carotid artery and also moderate narrowing of the proximal right common carotid artery as well as narrowing of both proximal vertebral arteries likely related to recent hanging. Etiology could be related to vasospasm or recent extrinsic prolonged compression. The distal internal carotid arteries and vertebral artery have more normal calibers. Findings called to Dr. Bhatt at the time of dictation. Gideon Brown MD Cervical Spine MRI 09/09/16 0000 Signed Impressions: Service Date/Time: August 16:02 - CONCLUSION: 1. Very minimal degenerative disc disease at C5-6. 2. No acute fracture or prevertebral soft tissue swelling. 3. No focal cervical cord abnormality. Tray Santiago MD Brain MRI 09/09/16 0000 Signed Impressions: Service Date/Time: August 16:02 - CONCLUSION: 1. Diffuse FLAIR-weighted hyperintensities involving the caudate nuclei bilaterally, bilateral hummel radiata, as well as the bilateral parietal and occipital cortex consistent with the patient's clinical diagnosis of anoxic encephalopathy. 2. No acute hemorrhage, midline shift, extra-axial fluid collection or abnormal enhancement. 3. Small fluid level within the right sphenoid sinus. Tray Santiago MD Cervical Spine CT 09/07/16 1800 Signed Impressions: Service Date/Time: Wednesday, September 07, 2016 18:06 - CONCLUSION: 1. No fracture or subluxation. 2. Scattered groundglass nodules throughout the upper lobes, nonspecific but can be seen with hypersensitivity pneumonitis. Artem Madera MD Objective Remarks GENERAL: 20-year-old female,laying in bed on mechanical ventilation via tracheostomy in no acute distress SKIN: Warm and dry. No rash HEAD: Normocephalic. Atraumatic. EYES: About 2 mm bilaterally and reactive. No scleral icterus. No injection or drainage. Ears, nose, throat: Normal external anatomy. Oropharynx with some bloody secretions.. NECK: trachea midline. trach site clean, dry. CARDIOVASCULAR: RRR. S1, S2 no S4. Without murmur. RESPIRATORY: Few scattered crackles appreciated bilaterally throughout anterior and posterior lung phillips. No wheezing GASTROINTESTINAL: Abdomen soft, non-tender, distended. G-tube is clean dry and intact MUSCULOSKELETAL: Mod edema over the dorsum of left hand, trace/1+ edema all extremities. NEURO: Positive myoclonus with stimulus. Patient does have corneal reflexes bilaterally. Positive gag with suctioning. A/P Assessment and Plan NEURO/PSYCH: Severe anoxic brain injury Saud common carotid narrowing Attempted suicide by hanging Seizure, Myoclonus Depression - MRI shows evidence of diffuse anoxic brain injury including weighted hyperintensity bilateral caudate, bilateral Hummel radiata, bilateral occipital and parietal lobes. - MRA neck bilateral common carotid narrowing-vascular surgery consulted, no intervention. started aspirin 09/10 - CT 09/12-loss salguero/white matter differentiation c/w cerebral edema. ICP monitor 09/12- 09/16. - EEG 09/10 bilateral sharp activity, on Dilantin. Level therapeutic 09/12. DCd Dilantin 09/18/16 due high fever, started Keppra - EEG 09/11 Encephalopathy, no sz. - EEG 09/13severe encephalopathy. (delta waves) - s/p induced hypothermia. - Neurology Dr. Valdez has followed. He states prognosis is poor and recommended comfort measures. - NSG Dr. José states poor prognosis, recommends comfort care. - Toxicology negative - Clonazepam 0.5 mg by PEG every 12 hours scheduled for myoclonus - Lorazepam 1 mg IV every 1 hour for symptomatic control for severe myoclonus. - Acetaminophen 650 mg/20 cc every 6 hours when necessary fever/pain 1 through 4 Oxycodone 5mg every 6 hours PRN pain 5-10. Fentanyl 50 g every 1 hour prn breakthrough pain - Levetiracetam 1000 mg per PEG twice a day seizure CV: Status post cardiac arrest Hemodynamic stable - Currently not requiring vasopressors and/or anti-hypertensives. - On propranolol 20 mg every 6 hours (tremors/tachycardia) started 09/29, hold orders place for hemodynamic parameters. Resp: Acute hypoxemic respiratory failure Pre-hospital Aspiration pneumonitis Mucous plugging - PRVC, 18/450/02/18/39 - ventilator bundle. - Albuterol/ipratropium aerosols every 6 hours and albuterol aerosols when necessary s/p trach 09/17/16. Vijay Jackson and Kunal. Removed trach sutures 10/02. PSV trials as clinically indicated GI/FEN: Transaminitis most likely from shock, resolving. - Tube feedings Jevity 1.5 at 50 L per hour per nutrition recommendations. - s/p PEG 09/20 - repeat GB u/s without signs of cholecystitis 09/18 -Continue sodium chloride 1gram bid - Liver ultrasound 09/12large nonocclusive thrombus and IVC. Renal/: Cystitis Maintain Benjamin catheter ID: Pyrexia MSSA pneumonia Sputum with MSSA 09/08. 09/17 and 09/27 normal julio Fever May be secondary to IVC thrombosis and central neuro Currently Levaquin to completed 2 weeks antibiotic. Bacitracin to affected helix region. Endo: - Sliding-scale insulin if needed to maintain euglycemia/blood sugars less than 185 HEME: Leukocytosis Thrombocytosis Normocytic anemia Large IVC thrombus - Monitor CBC CMP coags. - IVC filter placed 09/12 due to inability to anticoagulate (thrombocytopenia) and cerebral edema. - Now platelets improved, on fondaparinux 7.5 mg daily from 09/18/16. 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 KP negative. DVT GI prophylaxis - IVC filter in place. Continue lansoprazole 30 mg daily/.fondaparinux 7.5 mg daily started 09/18/16 Lines: - PIV Level I Reynaldo Johnson MD Oct 06, 2016 12:02
[2016-10-06] MEDS: clonazePAM 0.5 MG TAB G-TUBE SCH (13:47)
[2016-10-06] MEDS ORDERED: ROCURONIUM INJ 50 MG/5 ML VIAL IV ONE (15:30)
[2016-10-06] MEDS ORDERED: MIDAZOLAM HCL 2 MG/2 ML VIAL IV PUSH ONE (16:00)
[2016-10-06] MEDS: BACITRACIN OINT 0.9 GM PKT TOPICAL SCH (17:01)
[2016-10-07] VITALS (33 sets, daily range): BP systolic 92–122; BP diastolic 46–76; PULSE 84–108; RESP 22–33; TEMP 98–99.3; O2SAT 95–99
[2016-10-07] MEDS: PROPRANOLOL HCL 20 MG TAB G-TUBE SCH ×4 (00:29→17:43)
[2016-10-07] MEDS: clonazePAM 0.5 MG TAB G-TUBE SCH ×2 (02:20→14:22)
[2016-10-07] MEDS: RESP: ALBUTEROL 2.5 MG/IPRATROPIUM 0.5 MG NEB (SCH) NEB ×4 (03:37→22:34)
[2016-10-07] MEDS: CHLORHEXIDINE GLUCONATE 2 % 1 PACK (2 CLOTHS) TOP SCH (04:00)
[2016-10-07 04:45] LABS: AUTOMATED NEUTROPHIL # 8.3 TH/MM3 (1.8-7.7); BASOPHIL % 0.3 % (0.0-2.0); EOSINOPHIL # 0.2 TH/MM3 (0-0.4); EOSINOPHIL % 1.6 % (0.0-4.0); HEMATOCRIT 28.5 % (35.0-46.0); LYMPH % 13.9 % (9.0-44.0); LYMPHOCYTE # 1.5 TH/MM3 (1.0-4.8); MEAN CELL VOLUME 81.3 FL (80.0-100.0); MEAN CORPUSCULAR HEMOGLOBIN 25.4 PG (27.0-34.0); MEAN CORPUSCULAR HGB CONC 31.2 % (32.0-36.0); MONO % 8.9 % (0.0-8.0); NEUT % 75.3 % (16.0-70.0); PLATELET COUNT 386 TH/MM3 (150-450); RED CELL DISTRIBUTION WIDTH 14.9 % (11.6-17.2)
[2016-10-07 04:49] LABS: HEMO FLAGS DIFF FINAL
[2016-10-07 04:54] LABS: POTASSIUM 3.5 MEQ/L (3.5-5.1)
[2016-10-07 04:57] LABS: BICARBONATE 27.8 MEQ/L (21.0-32.0); MAGNESIUM 2.1 MG/DL (1.5-2.5)
[2016-10-07 05:00] LABS: INTERNATIONAL NORMALIZED RATIO 1.2 RATIO; PROTHROMBIN TIME - PATIENT 12.8 SEC (9.8-11.6)
[2016-10-07] MEDS: FONDAPARINUX SODIUM 7.5 MG/0.6 ML SYRINGE SQ SCH (05:46)
--- NOTE | 2016-10-07 06:38 | RADRPT ---
EXAM DATE/TIME: 10/07/2016 06:20 [facility] COMPARISON: CHEST SINGLE AP, October 02, 2016, 6:20. INDICATIONS : Respiratory distress. MEDICAL HISTORY : Tremors. Depression. Seizure. Suicide attempt. SURGICAL HISTORY : PEG placement. ENCOUNTER: Subsequent ACUITY: 3 weeks PAIN SCORE: Non-responsive. LOCATION: Bilateral chest FINDINGS: A single view of the chest demonstrates tracheostomy in good position. Inferior vena cava filter pres ent. No new airspace disease or effusion. No pneumothorax. CONCLUSION: 1. No new findings compared with October 02. Tracheostomy unchanged. No pneumothorax. Gideon Brown MD on October 07, 2016 at 6:36 Board Certified Radiologist. This report was verified electronically.
[2016-10-07] MEDS: LANSOPRAZOLE SOLUTAB 30 MG TAB NG SCH (08:46)
[2016-10-07] MEDS: POTASSIUM CHLORIDE 25 MEQ EFFERVESCENT TAB G-TUBE SCH (08:46)
[2016-10-07] MEDS: levETIRAcetam 500 MG/5 ML UDC NG SCH ×2 (08:47→20:32)
[2016-10-07] MEDS: LEVOFLOXACIN 750 MG TAB PEG SCH (08:47)
[2016-10-07] MEDS: DOCUSATE SODIUM 100 MG/10 ML UDC G-TUBE SCH ×2 (08:47→20:33)
[2016-10-07] MEDS: SODIUM CHLORIDE 1 GRAM TAB G-TUBE SCH ×2 (08:47→20:32)
[2016-10-07] MEDS: ARTIFICIAL TEARS OPTH SOLN 15 ML BTL EACH EYE SCH ×2 (08:48→20:35)
[2016-10-07] MEDS: ASPIRIN 81 MG CHEW TAB CHEW SCH (08:48)
[2016-10-07] MEDS: BISACODYL 10 MG SUPP RECTAL SCH (08:50)
[2016-10-07] MEDS: BACITRACIN OINT 0.9 GM PKT TOPICAL SCH (08:50)
[2016-10-07] MEDS: SODIUM CHLORIDE 0.9% FLUSH 10 ML FLUSH IV FLUSH PRN (09:07)
[2016-10-07] MEDS ORDERED: MIDAZOLAM HCL 2 MG/2 ML VIAL IV PUSH ONE (13:45)
[2016-10-07] MEDS ORDERED: ROCURONIUM INJ 50 MG/5 ML VIAL IV ONE (13:45)
--- NOTE | 2016-10-07 14:06 | HHI.CCPN ---
Subjective Remarks/Hospital Course 19 years old was brought in as a trauma alert. He has had to hanged herself and was found by her roommate. Unknown time of hanging. When fire department arrived patient was in asystole. CPR was started and one round of meds were given as per ACLS protocol. There was return of spontaneous circulation soon after that. Patient was brought in getting breaths by BV. She had a blood pressure and half way to arriving to the ER she started having some spontaneous respirations. She continued to be a GCS 3 when she arrived. She is admitted to critical care unit and therapeutic hypothermia protocol is initiated. 09/08/16: Patient achieving target temperature but developing severe shock. Levothroid had been increased to 30 mcg/m Mehdi-Synephrine added. Additional fluid boluses ordered currently on bicarbonate infusion additional one amp of bicarbonate given. Chest x-ray shows severe aspiration pneumonitis predominantly right lower lobe infiltrates. Zosyn 4.5 GM IV q8 started, give single dose of vanc 09/09/16: Patient is in the rewarming phase of hypothermia protocol. Once sedation was lightened and taken off the Nimbex, patient started developing tonic-clonic generalized seizure like activity. Bolused with a total of 6 mg Ativan in divided doses and restarted on Versed and propofol infusions. Loaded with Cerebyx 1 g and scheduled at 100 mg every 8 hours. Stat EEG pending. Neurology following 09/10/16: Remains on high dose of vasopressors, MRI brain shows evidence of anoxic brain injury. MRA neck bilateral common carotid narrowing. Start on aspirin get vascular surgery consult. No further seizure-like episodes noted. Pupils are equal bilaterally with slight withdrawal of right lower extremity to central pain. 09/11/16: Currently remains off all sedation in process. No noticeable improvement in neuro status, slight withdrawal x4. Aspirin started for bilateral common carotid narrowing-vascular surgery consult appreciated. Continue Cerebyx EEG sharp activity on eeg. MRI indicates diffuse anoxic brain injury with poor prognosis. EEG bihemispheric slowing and intermittent right central posterior sharp discharges which appear to be epileptiform. Dilantin level is therapeutic 09/12/16: Overnight had episodes myoclonus versus seizures. Neuro exam remains poor. No significant improvement. Low grade fever. Remains tachypneic on the ventilator. Restart propofol for vent synchrony 09/13/16: Neuro exam remains unchanged overnight. ICP monitor placed 09/12 for cerebral edema- ICP controlled with hyperosmolar therapy. 2 episodes of seizures vs myoclonus reported. Repeat EEG today. IVC filter placed 09/12/16 evening for large IVC thrombus. Unable to anticoagulate due to thrombocytopenia , cerebral edema-high risk of bleeding 09/14 EEG yesterday showed severe encephalopathy. ICP mainly 10-13 but intermittently spiked up to max of 22, improved with propofol bolus. Myoclonus noted with any tactile stimulation. 09/15 Comatose with myoclonus. ICP intermittently increased to 20, sometimes drifts down without intervention, sometimes improves with sedation. Extensor posturing. 09/16 Off continuous sedation. Comatose with myoclonus. Corneal reflex present on left, absent on right. ICP monitor removed today per NSG. 09/17: no significant neurologic improvement. off sedation. only intermittent ativan for myoclonus which improves symptoms. family meeting today, and family requests aggressive care, including trach/peg. 09/18: No change in neuro exam. Continued to spike high temperatures up to 102.5. CBC pending. I will discontinue Cerebyx start Keppra, check gallbladder ultrasound again and placed on empiric cefepime and single dose of vancomycin. Sputum culture Gram stain shows few GPC. On cooling blanket, and Tylenol. Motrin added. s/p Trach yesterday 09/19: no improvements or changes. sodium trending down. repeat sputum culture 09/17 growing staph aureus. KP pending. 09/20: No change in neuro exam. Overnight spike fever 103 again. Patient has bloody secretion from bilateral nares-she may have some acute sinusitis. Continue broad-spectrum antibiotics. Discontinue NG tube as the patient is getting PEG today 09/21: PEG yesterday. no changes. sputum again growing MSSA. 09/22: Colonization, no pneumonia. 09/23: No change in neuro status. 09/26: Halicat from floor after mucus plug. Back on vent. Sats marginal. 09/27: Remains on PRVC +8 ventilation. Resting in bed in no acute distress. Continues with generalized myoclonus. Withdraws right upper extremity only for me. RN stated left upper extremity. Gaze to right. 09/28: PEEP decreased to 5. FiO2 decreased to 40%. Continues with generalized myoclonus. Vaguely withdrawals to noxious stimuli. Tmax 101.5. Tolerating tube feeds better. 09/29: Transferred from [facility] to [place] ICU yesterday night. No acute events overnight. Chest x-ray clear on my review. Tmax 102.5. WBC count pending 09/30: Fever trending down. WBC count has normalized. Hemoglobin trending down now 8. Will continue Arixtra without changing to Coumadin. Partial eye opening to central pain 10/01: Tolerated CPAP for approximately 4 hours yesterday. Low-grade fever 100.5. No other acute events overnight. Having bowel movement 10/02 Was out of bed to stretcher chair 4 hours yesterday. Tolerated C Pap 10 over 5 for 6 hours. Was taken off T piece after 30 minutes due to Tachypnea and tachycardia. Temp max 100.0. White blood cell count 12.7. U/a occasional WBC clumps. Nursing states some leakage around the Benjamin. 2 large bowel movements overnight 10/03 Out of bed to stretchr for 4 hours. Tolerated C Pap and then T piece for 2 hours. Does not track. T99.2 10/04 No neurologic change. 10/05: Afebrile. Bite-block in place. Positive clots from back of oropharynx with suctioning. Tolerating tube feeding. Positive BM. On PRVC currently. Lasted 2 hours on PSV trial yesterday. 10/06: Some bleeding from the mouth. Will attempt to obtain more bite-block from [facility] as not available this facility in place in AM. Family complaining of some erythema around right helix, antihelix and lobule. Afebrile. Currently on T piece trial since 9 AM. Subjective: 10/07: Patient received 2 mg Versed and [address] molar bite- block's. Prior, on TP since 9 AM. Resting on the ventilator overnight. Tolerating tube feeding. Bowel movements 1 yesterday. Grandmother at bedside. Objective Vital Signs Date Time Temp Pulse Resp B/P (MAP) Pulse Ox O2 Delivery O2 Flow Rate FiO2 10/07/16 13:01 100 25 110/66 (81) 97 10/07/16 12:00 99.1 10/07/16 12:00 35 10/07/16 07:50 T-piece 10/06/16 13:57 8.00 Result Diagram: 10/07/16 0410 10/07/16 0410 Other Results Microbiology Date/Time Source Procedure Growth Status 09/28/16 15:15 Blood Peripheral Aerobic Blood Culture - Final NO GROWTH IN 5 DAYS Complete 09/28/16 15:15 Blood Peripheral Anaerobic Blood Culture - Final NO GROWTH IN 5 DAYS Complete 09/30/16 11:30 Stool Stool Stool Occult Blood (JULIANNE) - Final HEMOCCULT NEGATIVE Complete 10/07/16 03:40 Sputum Endotracheal Gram Stain Pending Received 10/07/16 03:40 Sputum Endotracheal Sputum Culture Pending Received 09/29/16 08:08 Urine Catheterized Urine Urine Culture - Final NO GROWTH IN 48 HOURS. Complete Imaging Last Impressions Chest X-Ray 10/07/16 0600 Signed Impressions: Service Date/Time: September 06:20 - CONCLUSION: 1. No new findings compared with October 02. Tracheostomy unchanged. No pneumothorax. Gideon Brown MD Liver Ultrasound 09/18/16 0000 Signed Impressions: Service Date/Time: Sunday, September 18, 2016 09:27 - CONCLUSION: 1. There is sludge within the gallbladder. No other findings are present to indicate acute cholecystitis. 2. Mild splenomegaly. 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 This is nonocclusive. A retrievable IVC filter was deployed below the main hepatic veins but it was necessary to cross an accessory right hepatic vein. Jose Armando Jackson Jr., MD Head CT 09/12/16 0000 Signed Impressions: Service Date/Time: Monday, September 12, 2016 09:29 - CONCLUSION: Mild loss of lemos matter definition that can be seen with increasing intracranial pressure. Ricki Cavazos MD FACR Neck Magnetic Resonance Angiography 09/09/16 0000 Signed Impressions: Service Date/Time: August 16:02 - CONCLUSION: 1. Moderate to severe smooth narrowing of the left common carotid artery and also moderate narrowing of the proximal right common carotid artery as well as narrowing of both proximal vertebral arteries likely related to recent hanging. Etiology could be related to vasospasm or recent extrinsic prolonged compression. The distal internal carotid arteries and vertebral artery have more normal calibers. Findings called to Dr. Bhatt at the time of dictation. Gideon Brown MD Cervical Spine MRI 09/09/16 0000 Signed Impressions: Service Date/Time: August 16:02 - CONCLUSION: 1. Very minimal degenerative disc disease at C5-6. 2. No acute fracture or prevertebral soft tissue swelling. 3. No focal cervical cord abnormality. Trya Santiago MD Brain MRI 09/09/16 0000 Signed Impressions: Service Date/Time: August 16:02 - CONCLUSION: 1. Diffuse FLAIR-weighted hyperintensities involving the caudate nuclei bilaterally, bilateral hummel radiata, as well as the bilateral parietal and occipital cortex consistent with the patient's clinical diagnosis of anoxic encephalopathy. 2. No acute hemorrhage, midline shift, extra-axial fluid collection or abnormal enhancement. 3. Small fluid level within the right sphenoid sinus. Tray Santiago MD Cervical Spine CT 09/07/16 1800 Signed Impressions: Service Date/Time: Wednesday, September 07, 2016 18:06 - CONCLUSION: 1. No fracture or subluxation. 2. Scattered groundglass nodules throughout the upper lobes, nonspecific but can be seen with hypersensitivity pneumonitis. Artem Madera MD Objective Remarks GENERAL: 20-year-old female, in stretcher chair on TPiece via tracheostomy in no acute distress SKIN: Warm and dry. No rash HEAD: Normocephalic. Atraumatic. EYES: About 2 mm bilaterally and reactive. No scleral icterus. No injection or drainage. Ears, nose, throat: Normal external anatomy. Oropharynx with some bloody secretions. Jaws clenched.. NECK: trachea midline. trach site clean, dry. CARDIOVASCULAR: RRR. S1, S2 no S4. Without murmur. RESPIRATORY: Few scattered crackles appreciated bilaterally throughout anterior and posterior lung phillips. No wheezing GASTROINTESTINAL: Abdomen soft, non-tender, distended. G-tube is clean dry and intact MUSCULOSKELETAL: Mod edema over the dorsum of left hand, trace/1+ edema all extremities. NEURO: Positive myoclonus with stimulus. Patient does have corneal reflexes bilaterally. Positive gag with suctioning. A/P Assessment and Plan NEURO/PSYCH: Severe anoxic brain injury Saud common carotid narrowing Attempted suicide by hanging Seizure, Myoclonus Depression - MRI shows evidence of diffuse anoxic brain injury including weighted hyperintensity bilateral caudate, bilateral Hummel radiata, bilateral occipital and parietal lobes. - MRA neck bilateral common carotid narrowing-vascular surgery consulted, no intervention. started aspirin 09/10 - CT 09/12-loss salguero/white matter differentiation c/w cerebral edema. ICP monitor 09/12- 09/16. - EEG 09/10 bilateral sharp activity, on Dilantin. Level therapeutic 09/12. DCd Dilantin 09/18/16 due high fever, started Keppra - EEG 09/11 Encephalopathy, no sz. - EEG 09/13severe encephalopathy. (delta waves) - s/p induced hypothermia. - Neurology Dr. Valdez has followed. He states prognosis is poor and recommended comfort measures. - NSG Dr. José states poor prognosis, recommends comfort care. - Toxicology negative - Clonazepam 0.5 mg by PEG every 12 hours scheduled for myoclonus - Lorazepam 1 mg IV every 1 hour for symptomatic control for severe myoclonus. - Acetaminophen 650 mg/20 cc every 6 hours when necessary fever/pain 1 through 4 Oxycodone 5mg every 6 hours PRN pain 5-10. Fentanyl 50 g every 1 hour prn breakthrough pain - Levetiracetam 1000 mg per PEG twice a day seizure CV: Status post cardiac arrest Hemodynamic stable - Currently not requiring vasopressors and/or anti-hypertensives. - On propranolol 20 mg every 6 hours (tremors/tachycardia) started 09/29, hold orders place for hemodynamic parameters. Resp: Acute hypoxemic respiratory failure Pre-hospital Aspiration pneumonitis Mucous plugging - [facility], /02/18/39 - ventilator bundle. - Albuterol/ipratropium aerosols every 6 hours and albuterol aerosols when necessary s/p trach 09/17/16. Vijay Jackson and Kunal. Currently no immediate plans to downsize to a #6 Shiley due to history of recurrent mucus plugging PSV/T piece trials as clinically indicated. Lasted 12 hours yesterday on T piece trial GI/FEN: Transaminitis most likely from shock, resolving. - Tube feedings Jevity 1.5 at 50 L per hour per nutrition recommendations. - s/p PEG 09/20 - repeat GB u/s without signs of cholecystitis 09/18 -Continue sodium chloride 1gram bid - Liver ultrasound 09/12large nonocclusive thrombus and IVC. Renal/: Cystitis Maintain Benjamin catheter ID: Pyrexia MSSA pneumonia Sputum with MSSA 09/08. 09/17 and 09/27 normal julio Fever secondary to IVC thrombosis and central neuro Currently Levaquin to completed 2 weeks antibiotic. Bacitracin to affected helix region. Endo: - Sliding-scale insulin if needed to maintain euglycemia/blood sugars less than 185 HEME: Normocytic anemia Large IVC thrombus - Monitor CBC CMP coags. - IVC filter placed 09/12 due to inability to anticoagulate (thrombocytopenia) and cerebral edema. - Now platelets improved, on fondaparinux 7.5 mg daily from 09/18/16. 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 KP negative. DVT GI prophylaxis - IVC filter in place. Continue lansoprazole 30 mg daily/fondaparinux 7.5 mg daily since 09/18/16 Lines: Peripheral IV Level I Reynaldo Johnson MD Oct 07, 2016 14:06
[2016-10-07] MEDS ORDERED: POTASSIUM CHLORIDE 20 MEQ PWD PACKET PEG ONE (15:00)
[2016-10-08] VITALS (29 sets, daily range): BP systolic 94–128; BP diastolic 56–83; PULSE 76–108; RESP 17–28; TEMP 98–98.6; O2SAT 97–100
[2016-10-08] MEDS: PROPRANOLOL HCL 20 MG TAB G-TUBE SCH ×4 (00:13→17:30)
[2016-10-08] MEDS: clonazePAM 0.5 MG TAB G-TUBE SCH ×2 (01:28→13:59)
[2016-10-08] MEDS: RESP: ALBUTEROL 2.5 MG/IPRATROPIUM 0.5 MG NEB (SCH) NEB ×4 (03:52→21:29)
[2016-10-08 05:17] LABS: POTASSIUM 3.8 MEQ/L (3.5-5.1)
[2016-10-08 05:20] LABS: INTERNATIONAL NORMALIZED RATIO 1.2 RATIO; PROTHROMBIN TIME - PATIENT 12.8 SEC (9.8-11.6)
[2016-10-08 05:23] LABS: BICARBONATE 27.4 MEQ/L (21.0-32.0)
[2016-10-08 05:28] LABS: AUTOMATED NEUTROPHIL # 9.7 TH/MM3 (1.8-7.7); BASOPHIL % 0.4 % (0.0-2.0); EOSINOPHIL # 0.2 TH/MM3 (0-0.4); EOSINOPHIL % 1.8 % (0.0-4.0); HEMATOCRIT 29.4 % (35.0-46.0); HEMO FLAGS DIFF FINAL; LYMPH % 12.4 % (9.0-44.0); LYMPHOCYTE # 1.5 TH/MM3 (1.0-4.8); MEAN CELL VOLUME 80.7 FL (80.0-100.0); MEAN CORPUSCULAR HGB CONC 32.2 % (32.0-36.0); MONO % 7.5 % (0.0-8.0); NEUT % 77.9 % (16.0-70.0); PLATELET COUNT 366 TH/MM3 (150-450); RED BLOOD COUNT 3.64 MIL/MM3 (4.00-5.30); RED CELL DISTRIBUTION WIDTH 14.4 % (11.6-17.2); WHITE BLOOD COUNT 12.3 TH/MM3 (4.0-11.0)
[2016-10-08] MEDS: CHLORHEXIDINE GLUCONATE 2 % 1 PACK (2 CLOTHS) TOP SCH (05:38)
[2016-10-08] MEDS: FONDAPARINUX SODIUM 7.5 MG/0.6 ML SYRINGE SQ SCH (05:39)
[2016-10-08] MEDS: levETIRAcetam 500 MG/5 ML UDC NG SCH ×2 (07:55→20:22)
[2016-10-08] MEDS: POTASSIUM CHLORIDE 25 MEQ EFFERVESCENT TAB G-TUBE SCH (07:56)
[2016-10-08] MEDS: LANSOPRAZOLE SOLUTAB 30 MG TAB NG SCH (07:56)
[2016-10-08] MEDS: ARTIFICIAL TEARS OPTH SOLN 15 ML BTL EACH EYE SCH ×2 (07:56→20:22)
[2016-10-08] MEDS: ASPIRIN 81 MG CHEW TAB CHEW SCH (07:57)
[2016-10-08] MEDS: LEVOFLOXACIN 750 MG TAB PEG SCH (07:57)
[2016-10-08] MEDS: DOCUSATE SODIUM 100 MG/10 ML UDC G-TUBE SCH ×2 (07:57→20:21)
[2016-10-08] MEDS: SODIUM CHLORIDE 1 GRAM TAB G-TUBE SCH ×2 (07:57→20:22)
[2016-10-08] MEDS: BACITRACIN TOP OINT 15 GM TUBE TOPICAL SCH (07:58)
[2016-10-08] MEDS: BISACODYL 10 MG SUPP RECTAL SCH (07:58)
--- NOTE | 2016-10-08 16:20 | HHI.CCPN ---
Subjective Remarks/Hospital Course 19 years old was brought in as a trauma alert. He has had to hanged herself and was found by her roommate. Unknown time of hanging. When fire department arrived patient was in asystole. CPR was started and one round of meds were given as per ACLS protocol. There was return of spontaneous circulation soon after that. Patient was brought in getting breaths by BV. She had a blood pressure and half way to arriving to the ER she started having some spontaneous respirations. She continued to be a GCS 3 when she arrived. She is admitted to critical care unit and therapeutic hypothermia protocol is initiated. 09/08/16: Patient achieving target temperature but developing severe shock. Levothroid had been increased to 30 mcg/m Mehdi-Synephrine added. Additional fluid boluses ordered currently on bicarbonate infusion additional one amp of bicarbonate given. Chest x-ray shows severe aspiration pneumonitis predominantly right lower lobe infiltrates. Zosyn 4.5 GM IV q8 started, give single dose of vanc 09/09/16: Patient is in the rewarming phase of hypothermia protocol. Once sedation was lightened and taken off the Nimbex, patient started developing tonic-clonic generalized seizure like activity. Bolused with a total of 6 mg Ativan in divided doses and restarted on Versed and propofol infusions. Loaded with Cerebyx 1 g and scheduled at 100 mg every 8 hours. Stat EEG pending. Neurology following 09/10/16: Remains on high dose of vasopressors, MRI brain shows evidence of anoxic brain injury. MRA neck bilateral common carotid narrowing. Start on aspirin get vascular surgery consult. No further seizure-like episodes noted. Pupils are equal bilaterally with slight withdrawal of right lower extremity to central pain. 09/11/16: Currently remains off all sedation in process. No noticeable improvement in neuro status, slight withdrawal x4. Aspirin started for bilateral common carotid narrowing-vascular surgery consult appreciated. Continue Cerebyx EEG sharp activity on eeg. MRI indicates diffuse anoxic brain injury with poor prognosis. EEG bihemispheric slowing and intermittent right central posterior sharp discharges which appear to be epileptiform. Dilantin level is therapeutic 09/12/16: Overnight had episodes myoclonus versus seizures. Neuro exam remains poor. No significant improvement. Low grade fever. Remains tachypneic on the ventilator. Restart propofol for vent synchrony 09/13/16: Neuro exam remains unchanged overnight. ICP monitor placed 09/12 for cerebral edema- ICP controlled with hyperosmolar therapy. 2 episodes of seizures vs myoclonus reported. Repeat EEG today. IVC filter placed 09/12/16 evening for large IVC thrombus. Unable to anticoagulate due to thrombocytopenia , cerebral edema-high risk of bleeding 09/14 EEG yesterday showed severe encephalopathy. ICP mainly 10-13 but intermittently spiked up to max of 22, improved with propofol bolus. Myoclonus noted with any tactile stimulation. 09/15 Comatose with myoclonus. ICP intermittently increased to 20, sometimes drifts down without intervention, sometimes improves with sedation. Extensor posturing. 09/16 Off continuous sedation. Comatose with myoclonus. Corneal reflex present on left, absent on right. ICP monitor removed today per NSG. 09/17: no significant neurologic improvement. off sedation. only intermittent ativan for myoclonus which improves symptoms. family meeting today, and family requests aggressive care, including trach/peg. 09/18: No change in neuro exam. Continued to spike high temperatures up to 102.5. CBC pending. I will discontinue Cerebyx start Keppra, check gallbladder ultrasound again and placed on empiric cefepime and single dose of vancomycin. Sputum culture Gram stain shows few GPC. On cooling blanket, and Tylenol. Motrin added. s/p Trach yesterday 09/19: no improvements or changes. sodium trending down. repeat sputum culture 09/17 growing staph aureus. KP pending. 09/20: No change in neuro exam. Overnight spike fever 103 again. Patient has bloody secretion from bilateral nares-she may have some acute sinusitis. Continue broad-spectrum antibiotics. Discontinue NG tube as the patient is getting PEG today 09/21: PEG yesterday. no changes. sputum again growing MSSA. 09/22: Colonization, no pneumonia. 09/23: No change in neuro status. 09/26: Halicat from floor after mucus plug. Back on vent. Sats marginal. 09/27: Remains on PRVC +8 ventilation. Resting in bed in no acute distress. Continues with generalized myoclonus. Withdraws right upper extremity only for me. RN stated left upper extremity. Gaze to right. 09/28: PEEP decreased to 5. FiO2 decreased to 40%. Continues with generalized myoclonus. Vaguely withdrawals to noxious stimuli. Tmax 101.5. Tolerating tube feeds better. 09/29: Transferred from [facility] to [facility] ICU yesterday night. No acute events overnight. Chest x-ray clear on my review. Tmax 102.5. WBC count pending 09/30: Fever trending down. WBC count has normalized. Hemoglobin trending down now 8. Will continue Arixtra without changing to Coumadin. Partial eye opening to central pain 10/01: Tolerated CPAP for approximately 4 hours yesterday. Low-grade fever 100.5. No other acute events overnight. Having bowel movement 10/02 Was out of bed to stretcher chair 4 hours yesterday. Tolerated C Pap 10 over 5 for 6 hours. Was taken off T piece after 30 minutes due to Tachypnea and tachycardia. Temp max 100.0. White blood cell count 12.7. U/a occasional WBC clumps. Nursing states some leakage around the Benjamin. 2 large bowel movements overnight 10/03 Out of bed to stretchr for 4 hours. Tolerated C Pap and then T piece for 2 hours. Does not track. T99.2 10/04 No neurologic change. 10/05: Afebrile. Bite-block in place. Positive clots from back of oropharynx with suctioning. Tolerating tube feeding. Positive BM. On PRVC currently. Lasted 2 hours on PSV trial yesterday. 10/06: Some bleeding from the mouth. Will attempt to obtain more bite-block from [facility] as not available this facility in place in AM. Family complaining of some erythema around right helix, antihelix and lobule. Afebrile. Currently on T piece trial since 9 AM. Subjective: 10/07: Patient received 2 mg Versed and [address] molar bite- block's. Prior, on TP since 9 AM. Resting on the ventilator overnight. Tolerating tube feeding. Bowel movements 1 yesterday. Grandmother at bedside. 10/08 Patient has been on TP's with 40% FIO2 since yesterday. Tolerating tube feeds. Afebrile. Objective Vital Signs Date Time Temp Pulse Resp B/P (MAP) Pulse Ox O2 Delivery O2 Flow Rate FiO2 10/08/16 11:00 98.3 96 21 113/70 (84) 99 10/08/16 10:40 T-piece 40 10/06/16 13:57 8.00 Intake and Output 10/08/16 10/08/16 10/08/16 07:59 15:59 23:59 Intake Total 463 ml Balance 463 ml Result Diagram: 10/08/167 10/08/16446 Other Results Laboratory Tests Test 10/08/16 04:47 White Blood Count 12.3 TH/MM3 Red Blood Count 3.64 MIL/MM3 Hemoglobin 9.4 GM/DL Hematocrit 29.4 % Mean Corpuscular Volume 80.7 FL Mean Corpuscular Hemoglobin 26.0 PG Mean Corpuscular Hemoglobin Concent 32.2 % Red Cell Distribution Width 14.4 % Platelet Count 366 TH/MM3 Mean Platelet Volume 7.7 FL Neutrophils (%) (Auto) 77.9 % Lymphocytes (%) (Auto) 12.4 % Monocytes (%) (Auto) 7.5 % Eosinophils (%) (Auto) 1.8 % Basophils (%) (Auto) 0.4 % Neutrophils # (Auto) 9.7 TH/MM3 Lymphocytes # (Auto) 1.5 TH/MM3 Monocytes # (Auto) 0.9 TH/MM3 Eosinophils # (Auto) 0.2 TH/MM3 Basophils # (Auto) 0.0 TH/MM3 CBC Comment DIFF FINAL Differential Comment Prothrombin Time 12.8 SEC Prothromb Time International Ratio 1.2 RATIO Blood Urea Nitrogen 18 MG/DL Creatinine 0.52 MG/DL Random Glucose 110 MG/DL Calcium Level 9.1 MG/DL Sodium Level 140 MEQ/L Potassium Level 3.8 MEQ/L Chloride Level 105 MEQ/L Carbon Dioxide Level 27.4 MEQ/L Anion Gap 8 MEQ/L Estimat Glomerular Filtration Rate 152 ML/MIN Imaging Last Impressions Chest X-Ray 10/07/16 0600 Signed Impressions: Service Date/Time: September 06:20 - CONCLUSION: 1. No new findings compared with October 02. Tracheostomy unchanged. No pneumothorax. Gideon Brown MD Liver Ultrasound 09/18/16 0000 Signed Impressions: Service Date/Time: Sunday, September 18, 2016 09:27 - CONCLUSION: 1. There is sludge within the gallbladder. No other findings are present to indicate acute cholecystitis. 2. Mild splenomegaly. Miller Lee MD IVC Filter Placement X-Ray 09/12/16 Signed Impressions: Service Date/Time: Monday, September 12, 2016 20:00 - CONCLUSION: Caval thrombosis extending from the suprarenal IVC to the infrarenal IVC. This is nonocclusive. A retrievable IVC filter was deployed below the main hepatic veins but it was necessary to cross an accessory right hepatic vein. Jose Armando Jackson Jr., MD Head CT 09/12/16 Signed Impressions: Service Date/Time: Monday, September 12, 2016 09:29 - CONCLUSION: Mild loss of lemos matter definition that can be seen with increasing intracranial pressure. Ricki Cavazos MD FACR Neck Magnetic Resonance Angiography 09/09/16 Signed Impressions: Service Date/Time: August 16:02 - CONCLUSION: 1. Moderate to severe smooth narrowing of the left common carotid artery and also moderate narrowing of the proximal right common carotid artery as well as narrowing of both proximal vertebral arteries likely related to recent hanging. Etiology could be related to vasospasm or recent extrinsic prolonged compression. The distal internal carotid arteries and vertebral artery have more normal calibers. Findings called to Dr. Bhatt at the time of dictation. Gideon Brown MD Cervical Spine MRI 09/09/16 Signed Impressions: Service Date/Time: August 16:02 - CONCLUSION: 1. Very minimal degenerative disc disease at C5-6. 2. No acute fracture or prevertebral soft tissue swelling. 3. No focal cervical cord abnormality. Tray Santiago MD Brain MRI 09/09/16 Signed Impressions: Service Date/Time: August 16:02 - CONCLUSION: 1. Diffuse FLAIR-weighted hyperintensities involving the caudate nuclei bilaterally, bilateral hummel radiata, as well as the bilateral parietal and occipital cortex consistent with the patient's clinical diagnosis of anoxic encephalopathy. 2. No acute hemorrhage, midline shift, extra-axial fluid collection or abnormal enhancement. 3. Small fluid level within the right sphenoid sinus. Tray Santiago MD Cervical Spine CT 09/07/16 1800 Signed Impressions: Service Date/Time: Wednesday, September 07, 2016 18:06 - CONCLUSION: 1. No fracture or subluxation. 2. Scattered groundglass nodules throughout the upper lobes, nonspecific but can be seen with hypersensitivity pneumonitis. Artem Madera MD Objective Remarks GENERAL: 20-year-old female on TPiece via tracheostomy in no acute distress SKIN: Warm and dry. No rash HEAD: Normocephalic. Atraumatic. EYES: About 2 mm bilaterally and reactive. No scleral icterus. No injection or drainage. Ears, nose, throat: Normal external anatomy. Oropharynx with some bloody secretions. Jaws clenched.. NECK: trachea midline. trach site clean, dry. CARDIOVASCULAR: RRR. S1, S2 no S4. Without murmur. RESPIRATORY: Few scattered crackles appreciated bilaterally throughout anterior and posterior lung phillips. No wheezing GASTROINTESTINAL: Abdomen soft, non-tender, distended. G-tube is clean dry and intact MUSCULOSKELETAL: Mod edema over the dorsum of left hand, trace/1+ edema all extremities. NEURO: Positive myoclonus with stimulus. Patient does have corneal reflexes bilaterally. Positive gag with suctioning. A/P Assessment and Plan NEURO/PSYCH: Severe anoxic brain injury Saud common carotid narrowing Attempted suicide by hanging Seizure, Myoclonus Depression - MRI shows evidence of diffuse anoxic brain injury including weighted hyperintensity bilateral caudate, bilateral Hummel radiata, bilateral occipital and parietal lobes. - MRA neck bilateral common carotid narrowing-vascular surgery consulted, no intervention. started aspirin 09/10 - CT 09/12-loss salguero/white matter differentiation c/w cerebral edema. ICP monitor 09/12- 09/16. - EEG 09/10 bilateral sharp activity, on Dilantin. Level therapeutic 09/12. DCd Dilantin 09/18/16 due high fever, now on Keppra 1,000mg BID - EEG 09/11 Encephalopathy, no sz. - EEG 09/13severe encephalopathy. (delta waves) - s/p induced hypothermia. - Neurology Dr. Valdez has followed. He states prognosis is poor and recommended comfort measures. - NSG Dr. José states poor prognosis, recommends comfort care. - Toxicology negative - Clonazepam 0.5 mg by PEG every 12 hours scheduled for myoclonus - Lorazepam 1 mg IV every 1 hour for symptomatic control for severe myoclonus. - Acetaminophen 650 mg/20 cc every 6 hours when necessary fever/pain 1 through 4 Oxycodone 5mg every 6 hours PRN pain 5-10. Fentanyl 50 g every 1 hour prn breakthrough pain - Levetiracetam 1000 mg per PEG twice a day seizure CV: Status post cardiac arrest Monitor HR and BP keep MAP>65mmHg - On propranolol 20 mg every 6 hours (tremors/tachycardia) started 09/29, Resp: Acute hypoxemic respiratory failure Pre-hospital Aspiration pneumonitis Mucous plugging - Continue with oxygen - tolerating TP's with 40% FIO2 since yesterday. - Albuterol/ipratropium aerosols every 6 hours and albuterol aerosols when necessary s/p trach 09/17/16. Vijay Jackson and Kunal. Pulm toilet, trach care. Pulm is following- Dr. Bunn GI/FEN: Transaminitis most likely from shock, resolving. - Tube feedings Jevity 1.5 at 50 L per hour per nutrition recommendations. - s/p PEG 09/20 - repeat GB u/s without signs of cholecystitis 09/18 -Continue sodium chloride 1gram bid - Liver ultrasound 09/12large nonocclusive thrombus and IVC. Renal/: Cystitis Monitor renal function, I/O's, electrolytes replacement as needed ID: MSSA pneumonia Sputum with MSSA 09/08. 09/17 and 09/27 Fever secondary to IVC thrombosis and central neuro On Levaquin monitor for signs of infections ( Fever, WBC) Bacitracin to affected helix region. Endo: - SSI if needed to maintain euglycemia/blood sugars less than 185 HEME: Normocytic anemia Large IVC thrombus - Monitor CBC CMP coags. - IVC filter placed 09/12 due to inability to anticoagulate (thrombocytopenia) and cerebral edema. - Now platelets improved, on fondaparinux 7.5 mg daily from 09/18/16. 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 KP negative. DVT GI prophylaxis - IVC filter in place. Continue lansoprazole 30 mg daily/fondaparinux 7.5 mg daily since 09/18/16 Lines: Peripheral IV Will sign off and transfer acre to [facility] Level II Kris Duron MD Oct 08, 2016 16:20
[2016-10-08] MEDS: SODIUM CHLORIDE 0.9% FLUSH 10 ML FLUSH IV FLUSH PRN (20:21)
[2016-10-09] VITALS (32 sets, daily range): BP systolic 100–118; BP diastolic 60–76; PULSE 94–112; RESP 23–46; TEMP 97.6–99.2; O2SAT 94–99
[2016-10-09] MEDS: PROPRANOLOL HCL 20 MG TAB G-TUBE SCH ×5 (00:18→23:47)
[2016-10-09] MEDS: CHLORHEXIDINE GLUCONATE 2 % 1 PACK (2 CLOTHS) TOP SCH (00:22)
[2016-10-09] MEDS: clonazePAM 0.5 MG TAB G-TUBE SCH ×2 (02:25→15:02)
[2016-10-09] MEDS: RESP: ALBUTEROL 2.5 MG/IPRATROPIUM 0.5 MG NEB (SCH) NEB (03:54)
[2016-10-09] MEDS: FONDAPARINUX SODIUM 7.5 MG/0.6 ML SYRINGE SQ SCH (06:00)
[2016-10-09 06:58] LABS: AUTOMATED NEUTROPHIL # 9.5 TH/MM3 (1.8-7.7); BASOPHIL % 0.4 % (0.0-2.0); EOSINOPHIL # 0.3 TH/MM3 (0-0.4); EOSINOPHIL % 2.5 % (0.0-4.0); HEMATOCRIT 29.8 % (35.0-46.0); HEMO FLAGS DIFF FINAL; LYMPH % 11.2 % (9.0-44.0); LYMPHOCYTE # 1.3 TH/MM3 (1.0-4.8); MEAN CELL VOLUME 80.4 FL (80.0-100.0); MEAN CORPUSCULAR HEMOGLOBIN 26.3 PG (27.0-34.0); MEAN CORPUSCULAR HGB CONC 32.7 % (32.0-36.0); MONO % 7.8 % (0.0-8.0); NEUT % 78.1 % (16.0-70.0); PLATELET COUNT 359 TH/MM3 (150-450); RED BLOOD COUNT 3.71 MIL/MM3 (4.00-5.30); RED CELL DISTRIBUTION WIDTH 14.4 % (11.6-17.2)
[2016-10-09 07:10] LABS: POTASSIUM 3.7 MEQ/L (3.5-5.1)
[2016-10-09 07:13] LABS: INTERNATIONAL NORMALIZED RATIO 1.1 RATIO; PROTHROMBIN TIME - PATIENT 12.6 SEC (9.8-11.6)
[2016-10-09 07:16] LABS: BICARBONATE 27.6 MEQ/L (21.0-32.0); MAGNESIUM 2.3 MG/DL (1.5-2.5)
[2016-10-09] MEDS: LEVOFLOXACIN 750 MG TAB PEG SCH (08:22)
[2016-10-09] MEDS: SODIUM CHLORIDE 1 GRAM TAB G-TUBE SCH ×2 (08:22→20:58)
[2016-10-09] MEDS: LANSOPRAZOLE SOLUTAB 30 MG TAB NG SCH (08:22)
[2016-10-09] MEDS: ARTIFICIAL TEARS OPTH SOLN 15 ML BTL EACH EYE SCH ×2 (08:23→20:59)
[2016-10-09] MEDS: levETIRAcetam 500 MG/5 ML UDC NG SCH ×2 (08:23→20:59)
[2016-10-09] MEDS: ASPIRIN 81 MG CHEW TAB CHEW SCH (08:23)
[2016-10-09] MEDS: DOCUSATE SODIUM 100 MG/10 ML UDC G-TUBE SCH ×2 (08:24→20:58)
[2016-10-09] MEDS: POTASSIUM CHLORIDE 25 MEQ EFFERVESCENT TAB G-TUBE SCH (08:24)
[2016-10-09] MEDS: BISACODYL 10 MG SUPP RECTAL SCH (08:24)
[2016-10-09] MEDS: BACITRACIN TOP OINT 15 GM TUBE TOPICAL SCH (08:25)
[2016-10-09] MEDS: RESP: ALBUTEROL 2.5 MG/3 ML NEB (PRN) NEB ×2 (10:04→15:54)
--- NOTE | 2016-10-09 15:22 | HHI.PR ---
Subjective Remarks No acute change according to boyfriend bedside and nurse. Positive bowel movement. Objective Vital Signs Date Time Temp Pulse Resp B/P (MAP) Pulse Ox O2 Delivery O2 Flow Rate FiO2 10/09/16 13:00 104 26 113/76 (88) 96 10/09/16 12:00 99.0 108 32 118/74 (89) 97 10/09/16 12:00 108 10/09/16 11:00 110 26 110/75 (87) 94 10/09/16 10:00 106 24 100/63 (75) 96 10/09/16 10:00 106 10/09/16 09:00 108 32 116/71 (86) 95 10/09/16 08:10 97 T-piece 7.00 40 10/09/16 08:00 110 28 116/68 (84) 97 10/09/16 08:00 110 10/09/16 07:00 98.6 108 34 108/67 (81) 98 10/09/16 06:01 94 23 100/60 (73) 97 10/09/16 06:00 100 10/09/16 05:01 100 23 106/62 (77) 98 10/09/16 04:01 98.0 98 24 111/68 (82) 99 10/09/16 04:00 40 10/09/16 04:00 99 10/09/16 03:01 100 26 113/61 (78) 97 10/09/16 02:01 100 26 108/70 (83) 97 10/09/16 02:00 99 10/09/16 01:01 102 35 110/62 (78) 97 10/09/16 00:01 97.6 100 24 113/70 (84) 97 10/09/16 00:00 40 10/09/16 00:00 101 10/08/16 23:01 104 26 105/71 (82) 97 10/08/16 22:01 104 26 113/69 (84) 97 10/08/16 22:00 100 10/08/16 21:30 99 T-piece 40 10/08/16 21:01 98 22 110/74 (86) 98 10/08/16 20:01 98.3 94 23 110/70 (83) 98 10/08/16 20:00 99 10/08/16 20:00 40 10/08/16 19:01 96 25 110/64 (79) 98 10/08/16 18:00 99 10/08/16 18:00 92 21 103/58 (73) 99 10/08/16 17:00 99 20 111/65 (80) 98 10/08/16 16:00 98.0 96 20 111/73 (86) 99 10/08/16 16:00 40 10/08/16 16:00 98 I/O 10/08/16 10/08/16 10/08/16 10/09/16 10/09/16 10/09/16 06:59 14:59 22:59 06:59 14:59 22:59 Intake Total 463 ml 700 ml 740 ml Output Total 0 ml Balance 463 ml 700 ml 740 ml 0 ml Tube Feeding 313 ml 500 ml 620 ml Other 150 ml 200 ml 120 ml Tube Feeding Residual Discard 0 ml # Voids 2 4 4 # Bowel Movements 0 1 1 Result Diagram: 10/09/16 0608 10/09/16 0608 Imaging Last Impressions Chest X-Ray 10/07/16 0600 Signed Impressions: Service Date/Time: September 06:20 - CONCLUSION: 1. No new findings compared with October 02. Tracheostomy unchanged. No pneumothorax. Gideon Brown MD Liver Ultrasound 09/18/16 0000 Signed Impressions: Service Date/Time: Sunday, September 18, 2016 09:27 - CONCLUSION: 1. There is sludge within the gallbladder. No other findings are present to indicate acute cholecystitis. 2. Mild splenomegaly. 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 This is nonocclusive. A retrievable IVC filter was deployed below the main hepatic veins but it was necessary to cross an accessory right hepatic vein. Jose Armando Jackson Jr., MD Head CT 09/12/16 0000 Signed Impressions: Service Date/Time: Monday, September 12, 2016 09:29 - CONCLUSION: Mild loss of lemos matter definition that can be seen with increasing intracranial pressure. Ricki Cavazos MD FACR Neck Magnetic Resonance Angiography 09/09/16 0000 Signed Impressions: Service Date/Time: August 16:02 - CONCLUSION: 1. Moderate to severe smooth narrowing of the left common carotid artery and also moderate narrowing of the proximal right common carotid artery as well as narrowing of both proximal vertebral arteries likely related to recent hanging. Etiology could be related to vasospasm or recent extrinsic prolonged compression. The distal internal carotid arteries and vertebral artery have more normal calibers. Findings called to Dr. Bhatt at the time of dictation. Gideon Brown MD Cervical Spine MRI 09/09/16 0000 Signed Impressions: Service Date/Time: August 16:02 - CONCLUSION: 1. Very minimal degenerative disc disease at C5-6. 2. No acute fracture or prevertebral soft tissue swelling. 3. No focal cervical cord abnormality. Tray Santiago MD Brain MRI 09/09/16 0000 Signed Impressions: Service Date/Time: August 16:02 - CONCLUSION: 1. Diffuse FLAIR-weighted hyperintensities involving the caudate nuclei bilaterally, bilateral hummel radiata, as well as the bilateral parietal and occipital cortex consistent with the patient's clinical diagnosis of anoxic encephalopathy. 2. No acute hemorrhage, midline shift, extra-axial fluid collection or abnormal enhancement. 3. Small fluid level within the right sphenoid sinus. Tray Santiago MD Cervical Spine CT 09/07/16 1800 Signed Impressions: Service Date/Time: Wednesday, September 07, 2016 18:06 - CONCLUSION: 1. No fracture or subluxation. 2. Scattered groundglass nodules throughout the upper lobes, nonspecific but can be seen with hypersensitivity pneumonitis. Artem Madera MD Objective Remarks GENERAL: Lying in bed. Unresponsive. SKIN: Warm and dry. HEAD: Normocephalic. EYES: No scleral icterus. No injection or drainage. NECK: Supple, trachea midline. No JVD. Tracheostomy in place. No surrounding erythema. CARDIOVASCULAR: Regular rate and rhythm without murmurs, gallops, or rubs. RESPIRATORY: Breath sounds equal bilaterally. No accessory muscle use. GASTROINTESTINAL: Abdomen soft, non-tender, nondistended. MUSCULOSKELETAL: No cyanosis, or edema. BACK: Nontender without obvious deformity. No CVA tenderness. A/P Assessment and Plan ==== 10/09/16===== Anoxic brain injury status post hanging. Discussed poor prognosis with boyfriend at bedside. Continues on antibiotics- NEURO/PSYCH: //Severe anoxic brain injury //Saud common carotid narrowing //Attempted suicide by hanging //Seizure, Myoclonus //Depression - MRI shows evidence of diffuse anoxic brain injury including weighted hyperintensity bilateral caudate, bilateral Hummel radiata, bilateral occipital and parietal lobes. - MRA neck bilateral common carotid narrowing-vascular surgery consulted, no intervention. started aspirin 09/10 - CT 09/12-loss salguero/white matter differentiation c/w cerebral edema. ICP monitor 09/12- 09/16. - EEG 09/10 bilateral sharp activity, on Dilantin. Level therapeutic 09/12. DCd Dilantin 09/18/16 due high fever, now on Keppra 1,000mg BID - EEG 09/11 Encephalopathy, no sz. - EEG 09/13severe encephalopathy. (delta waves) - s/p induced hypothermia. - Neurology Dr. Valdez has followed. He states prognosis is poor and recommended comfort measures. - NSG Dr. José states poor prognosis, recommends comfort care. - Toxicology negative - Clonazepam 0.5 mg by PEG every 12 hours scheduled for myoclonus - Lorazepam 1 mg IV every 1 hour for symptomatic control for severe myoclonus. - Acetaminophen 650 mg/20 cc every 6 hours when necessary fever/pain 1 through 4 Oxycodone 5mg every 6 hours PRN pain 5-10. Fentanyl 50 g every 1 hour prn breakthrough pain - Levetiracetam 1000 mg per PEG twice a day seizure CV: Status post cardiac arrest Monitor HR and BP keep MAP>65mmHg - On propranolol 20 mg every 6 hours (tremors/tachycardia) started 09/29, Resp: //Acute hypoxemic respiratory failure //Pre-hospital Aspiration pneumonitis //Mucous plugging - Continue with oxygen - tolerating TP's with 40% FIO2 since yesterday. - Albuterol/ipratropium aerosols every 6 hours and albuterol aerosols when necessary s/p trach 09/17/16. Vijay Jackson and Kunal. Pulm toilet, trach care. Pulm is following- Dr. Bunn GI/FEN: //Transaminitis most likely from shock, resolving. - Tube feedings Jevity 1.5 at 50 L per hour per nutrition recommendations. - s/p PEG 09/20 - repeat GB u/s without signs of cholecystitis 09/18 -Continue sodium chloride 1gram bid - Liver ultrasound 09/12large nonocclusive thrombus and IVC. Renal/: //Cystitis Monitor renal function, I/O's, electrolytes replacement as needed ID: //MSSA pneumonia Sputum with MSSA 09/08. 09/17 and 09/27 Fever secondary to IVC thrombosis and central neuro On Levaquin monitor for signs of infections ( Fever, WBC) Bacitracin to affected helix region. Endo: - SSI if needed to maintain euglycemia/blood sugars less than 185 HEME: //Normocytic anemia //Large IVC thrombus - Monitor CBC CMP coags. - IVC filter placed 09/12 due to inability to anticoagulate (thrombocytopenia) and cerebral edema. - Now platelets improved, on fondaparinux 7.5 mg daily from 09/18/16. 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 KP negative. //DVT GI prophylaxis - IVC filter in place. Continue lansoprazole 30 mg daily/fondaparinux 7.5 mg daily since 09/18/16 Lines: Peripheral IV Discharge Planning Very poor prognosis. Continue treatment for pneumonia. Palliative care following. Further discussion with family planned. Sidney Mari MD Oct 09, 2016 15:22
--- NOTE | 2016-10-09 18:36 | HHI.PR ---
Subjective Remarks 20 YOWF with Anoxic encephalopathy, cardiac arrest, hanging Has twitching movements On Trach collar, tolerates No Fever Objective Vital Signs Vital Signs Date Time Temp Pulse Resp B/P (MAP) Pulse Ox O2 Delivery O2 Flow Rate FiO2 10/09/16 18:00 112 10/09/16 18:00 112 31 116/73 (87) 95 10/09/16 17:00 110 27 101/67 (78) 94 10/09/16 17:00 110 10/09/16 16:00 112 10/09/16 16:00 99.2 112 30 106/69 (81) 98 10/09/16 15:00 108 27 113/72 (86) 96 10/09/16 15:00 108 10/09/16 14:00 106 10/09/16 14:00 106 26 111/71 (84) 96 10/09/16 13:00 104 26 113/76 (88) 96 10/09/16 12:00 99.0 108 32 118/74 (89) 97 10/09/16 12:00 108 10/09/16 11:00 110 26 110/75 (87) 94 10/09/16 10:00 106 24 100/63 (75) 96 10/09/16 10:00 106 10/09/16 09:00 108 32 116/71 (86) 95 10/09/16 08:10 97 T-piece 7.00 40 10/09/16 08:00 110 28 116/68 (84) 97 10/09/16 08:00 110 10/09/16 07:00 98.6 108 34 108/67 (81) 98 10/09/16 06:01 94 23 100/60 (73) 97 10/09/16 06:00 100 10/09/16 05:01 100 23 106/62 (77) 98 10/09/16 04:01 98.0 98 24 111/68 (82) 99 10/09/16 04:00 40 10/09/16 04:00 99 10/09/16 03:01 100 26 113/61 (78) 97 10/09/16 02:01 100 26 108/70 (83) 97 10/09/16 02:00 99 10/09/16 01:01 102 35 110/62 (78) 97 10/09/16 00:01 97.6 100 24 113/70 (84) 97 10/09/16 00:00 40 10/09/16 00:00 101 10/08/16 23:01 104 26 105/71 (82) 97 10/08/16 22:01 104 26 113/69 (84) 97 10/08/16 22:00 100 10/08/16 21:30 99 T-piece 40 10/08/16 21:01 98 22 110/74 (86) 98 10/08/16 20:01 98.3 94 23 110/70 (83) 98 10/08/16 20:00 99 10/08/16 20:00 40 10/08/16 19:01 96 25 110/64 (79) 98 I/O 10/08/16 10/08/16 10/08/16 10/09/16 10/09/16 10/09/16 07:00 15:00 23:00 07:00 15:00 23:00 Intake Total 463 ml 700 ml 740 ml 746 ml Output Total 0 ml Balance 463 ml 700 ml 740 ml 0 ml 746 ml Tube Feeding 313 ml 500 ml 620 ml 626 ml Other 150 ml 200 ml 120 ml 120 ml Tube Feeding Residual Discard 0 ml # Voids 2 4 4 4 # Bowel Movements 0 1 1 2 Result Diagram: 10/09/16 0608 10/09/16 06 Objective Remarks GENERAL: Thin built female, on trach tube SKIN: Warm and dry. HEAD: Normocephalic. EYES: No scleral icterus. No injection or drainage. NECK: Supple, trachea midline. No JVD or lymphadenopathy. Has trach CARDIOVASCULAR: Regular rate and rhythm without murmurs, gallops, or rubs. RESPIRATORY: Breath sounds equal bilaterally. No accessory muscle use. GASTROINTESTINAL: Abdomen soft, non-tender, nondistended. PEG tube MUSCULOSKELETAL: No cyanosis, or edema. BACK: Nontender without obvious deformity. No CVA tenderness. A/P Assessment and Plan Resp Failure S/P trach Anoxic encephalopathy cardiac arrest, hanging S/P PEG PLAN: Cont Trach collar Trach care Aerosol prn On Keppra Evgeny Aguillon MD Oct 09, 2016 18:36
[2016-10-10] VITALS (32 sets, daily range): BP systolic 92–131; BP diastolic 55–86; PULSE 94–122; RESP 19–39; TEMP 98.5–99.4; O2SAT 93–100
[2016-10-10] MEDS: clonazePAM 0.5 MG TAB G-TUBE SCH ×2 (01:15→14:05)
[2016-10-10] MEDS: CHLORHEXIDINE GLUCONATE 2 % 1 PACK (2 CLOTHS) TOP SCH (03:58)
[2016-10-10] MEDS: RESP: ALBUTEROL 2.5 MG/3 ML NEB (PRN) NEB ×3 (05:56→20:27)
[2016-10-10] MEDS: FONDAPARINUX SODIUM 7.5 MG/0.6 ML SYRINGE SQ SCH (06:00)
[2016-10-10] MEDS: PROPRANOLOL HCL 20 MG TAB G-TUBE SCH ×3 (06:02→18:34)
[2016-10-10] MEDS: LORazepam 2 MG/ML VIAL IV PRN (06:07)
[2016-10-10 06:47] LABS: INTERNATIONAL NORMALIZED RATIO 1.1 RATIO; PROTHROMBIN TIME - PATIENT 12.6 SEC (9.8-11.6)
[2016-10-10] MEDS: POTASSIUM CHLORIDE 25 MEQ EFFERVESCENT TAB G-TUBE SCH (08:25)
[2016-10-10] MEDS: BACITRACIN TOP OINT 15 GM TUBE TOPICAL SCH (08:26)
[2016-10-10] MEDS: DOCUSATE SODIUM 100 MG/10 ML UDC G-TUBE SCH ×2 (08:26→21:46)
[2016-10-10] MEDS: SODIUM CHLORIDE 1 GRAM TAB G-TUBE SCH ×2 (08:26→21:46)
[2016-10-10] MEDS: ARTIFICIAL TEARS OPTH SOLN 15 ML BTL EACH EYE SCH ×2 (08:26→21:46)
[2016-10-10] MEDS: levETIRAcetam 500 MG/5 ML UDC NG SCH ×2 (08:26→21:46)
[2016-10-10] MEDS: BISACODYL 10 MG SUPP RECTAL SCH (08:27)
[2016-10-10] MEDS: ASPIRIN 81 MG CHEW TAB CHEW SCH (08:27)
[2016-10-10] MEDS: LANSOPRAZOLE SOLUTAB 30 MG TAB NG SCH (08:27)
[2016-10-10] MEDS ORDERED: FONDAPARINUX SODIUM 7.5 MG/0.6 ML SYRINGE SQ ONE (09:30)
--- NOTE | 2016-10-10 16:44 | HHI.PR ---
Subjective Remarks 20 YOWF with Anoxic encephalopathy, cardiac arrest, hanging Has twitching movements On Trach collar, tolerates No Fever Mother and sister at BS Objective Vital Signs Vital Signs Date Time Temp Pulse Resp B/P (MAP) Pulse Ox O2 Delivery O2 Flow Rate FiO2 10/10/16 15:00 100 20 114/70 (85) 98 10/10/16 14:00 100 24 111/72 (85) 98 10/10/16 14:00 100 10/10/16 13:00 98 39 109/74 (86) 94 10/10/16 12:00 99.2 100 20 114/66 (82) 97 10/10/16 12:00 100 10/10/16 12:00 35 10/10/16 11:00 94 10/10/16 11:00 94 23 93/60 (71) 96 10/10/16 10:00 96 10/10/16 10:00 96 19 92/61 (71) 97 10/10/16 09:00 96 25 112/70 (84) 98 10/10/16 09:00 94 10/10/16 08:00 35 10/10/16 08:00 96 10/10/16 08:00 98 T-piece 7.00 35 10/10/16 08:00 96 19 100/59 (73) 98 10/10/16 07:00 99.1 100 26 103/67 (79) 96 10/10/16 06:01 98 32 114/73 (87) 100 10/10/16 06:00 122 10/10/16 05:01 96 25 97/59 (72) 95 10/10/16 04:01 99.4 100 38 101/67 (78) 95 10/10/16 04:00 102 10/10/16 04:00 35 10/10/16 03:01 106 25 115/77 (90) 96 10/10/16 02:01 100 27 99/55 (70) 95 10/10/16 02:00 107 10/10/16 01:01 106 35 115/70 (85) 95 10/10/16 00:01 99.2 108 33 131/86 (101) 96 10/10/16 00:00 35 10/10/16 00:00 110 10/09/16 23:01 110 37 118/74 (89) 96 10/09/16 22:01 102 30 113/66 (82) 94 10/09/16 22:00 110 10/09/16 21:12 100 31 108/68 (81) 96 10/09/16 21:12 100 31 108/68 (81) 96 10/09/16 20:01 98.0 106 31 101/66 (78) 94 10/09/16 20:00 107 10/09/16 20:00 35 10/09/16 19:35 94 T-piece 6.00 35 10/09/16 19:01 108 30 105/69 (81) 95 10/09/16 18:00 112 10/09/16 18:00 112 31 116/73 (87) 95 10/09/16 17:00 110 27 101/67 (78) 94 10/09/16 17:00 110 I/O 10/09/16 10/09/16 10/09/16 10/10/16 10/10/16 10/10/16 07:00 15:00 23:00 07:00 15:00 23:00 Intake Total 740 ml 746 ml 860 ml Output Total 0 ml 0 ml Balance 740 ml 0 ml 746 ml 860 ml 0 ml Tube Feeding 620 ml 626 ml 620 ml Other 120 ml 120 ml 240 ml Tube Feeding Residual Discard 0 ml 0 ml # Voids 4 4 5 # Bowel Movements 1 2 0 Result Diagram: 10/09/16 0608 10/09/16 0608 Objective Remarks GENERAL: Thin built female, on trach tube SKIN: Warm and dry. HEAD: Normocephalic. EYES: No scleral icterus. No injection or drainage. NECK: Supple, trachea midline. No JVD or lymphadenopathy. Has trach CARDIOVASCULAR: Regular rate and rhythm without murmurs, gallops, or rubs. RESPIRATORY: Breath sounds equal bilaterally. No accessory muscle use. GASTROINTESTINAL: Abdomen soft, non-tender, nondistended. PEG tube MUSCULOSKELETAL: No cyanosis, or edema. BACK: Nontender without obvious deformity. No CVA tenderness. A/P Assessment and Plan Resp Failure S/P trach Anoxic encephalopathy cardiac arrest, hanging S/P PEG Had large BM PLAN: Cont Trach collar Trach care Aerosol prn On Keppra TF DW Mother and sister at BS Evgeny Bunn MD Oct 10, 2016 16:44
--- NOTE | 2016-10-10 17:17 | HHI.PR ---
Subjective Remarks Patient had some convulsions overnight. Resolved with Ativan. Patient continues unresponsive. EEG ordered yesterday is pending. Discussed with mother at bedside Objective Vital Signs Date Time Temp Pulse Resp B/P (MAP) Pulse Ox O2 Delivery O2 Flow Rate FiO2 10/10/16 15:00 100 20 114/70 (85) 98 10/10/16 14:00 100 24 111/72 (85) 98 10/10/16 14:00 100 10/10/16 13:00 98 39 109/74 (86) 94 10/10/16 12:00 99.2 100 20 114/66 (82) 97 10/10/16 12:00 100 10/10/16 12:00 35 10/10/16 11:00 94 10/10/16 11:00 94 23 93/60 (71) 96 10/10/16 10:00 96 10/10/16 10:00 96 19 92/61 (71) 97 10/10/16 09:00 96 25 112/70 (84) 98 10/10/16 09:00 94 10/10/16 08:00 35 10/10/16 08:00 96 10/10/16 08:00 98 T-piece 7.00 35 10/10/16 08:00 96 19 100/59 (73) 98 10/10/16 07:00 99.1 100 26 103/67 (79) 96 10/10/16 06:01 98 32 114/73 (87) 100 10/10/16 06:00 122 10/10/16 05:01 96 25 97/59 (72) 95 10/10/16 04:01 99.4 100 38 101/67 (78) 95 10/10/16 04:00 102 10/10/16 04:00 35 10/10/16 03:01 106 25 115/77 (90) 96 10/10/16 02:01 100 27 99/55 (70) 95 10/10/16 02:00 107 10/10/16 01:01 106 35 115/70 (85) 95 10/10/16 00:01 99.2 108 33 131/86 (101) 96 10/10/16 00:00 35 10/10/16 00:00 110 10/09/16 23:01 110 37 118/74 (89) 96 10/09/16 22:01 102 30 113/66 (82) 94 10/09/16 22:00 110 10/09/16 21:12 100 31 108/68 (81) 96 10/09/16 21:12 100 31 108/68 (81) 96 10/09/16 20:01 98.0 106 31 101/66 (78) 94 10/09/16 20:00 107 10/09/16 20:00 35 10/09/16 19:35 94 T-piece 6.00 35 10/09/16 19:01 108 30 105/69 (81) 95 10/09/16 18:00 112 10/09/16 18:00 112 31 116/73 (87) 95 I/O 10/09/16 10/09/16 10/09/16 10/10/16 10/10/16 10/10/16 06:59 14:59 22:59 06:59 14:59 22:59 Intake Total 740 ml 746 ml 860 ml Output Total 0 ml 0 ml Balance 740 ml 0 ml 746 ml 860 ml 0 ml Tube Feeding 620 ml 626 ml 620 ml Other 120 ml 120 ml 240 ml Tube Feeding Residual Discard 0 ml 0 ml # Voids 4 4 5 # Bowel Movements 1 2 0 Result Diagram: 10/09/16 0608 10/09/16 0608 Objective Remarks GENERAL: Lying in bed. Unresponsive. As before. SKIN: Warm and dry. HEAD: Normocephalic. EYES: No scleral icterus. No injection or drainage. NECK: Supple, trachea midline. No JVD. Tracheostomy in place. No surrounding erythema. CARDIOVASCULAR: Regular rate and rhythm without murmurs, gallops, or rubs. RESPIRATORY: Breath sounds equal bilaterally. No accessory muscle use. GASTROINTESTINAL: Abdomen soft, non-tender, nondistended. PEG tube with no surrounding erythema. MUSCULOSKELETAL: No cyanosis, or edema. BACK: Nontender without obvious deformity. No CVA tenderness. A/P Assessment and Plan ==== 10/10/16===== //Respiratory failure. Continues on antibiotics-appreciate pulmonology assistance //ivc thrombus -with heparin-induced cytopenia. Discussed with nursing importance of this medication. Nursing has clarified this with pharmacy. We' ll decrease dose of fondaparinux to 5 mg daily for patient's weight of 48.2 kg. Heart on warfarin. NEURO/PSYCH: //Severe anoxic brain injury //Saud common carotid narrowing //Attempted suicide by hanging //Seizure, Myoclonus //Depression - MRI shows evidence of diffuse anoxic brain injury including weighted hyperintensity bilateral caudate, bilateral Allen radiata, bilateral occipital and parietal lobes. - MRA neck bilateral common carotid narrowing-vascular surgery consulted, no intervention. started aspirin 09/10 - CT 09/12-loss salguero/white matter differentiation c/w cerebral edema. ICP monitor 09/12- 09/16. - EEG 09/10 bilateral sharp activity, on Dilantin. Level therapeutic 09/12. DCd Dilantin 09/18/16 due high fever, now on Keppra 1,000mg BID - EEG 09/11 Encephalopathy, no sz. - EEG 09/13severe encephalopathy. (delta waves) - s/p induced hypothermia. - Neurology Dr. Valdez has followed. He states prognosis is poor and recommended comfort measures. - NSG Dr. José states poor prognosis, recommends comfort care. - Toxicology negative - Clonazepam 0.5 mg by PEG every 12 hours scheduled for myoclonus - Lorazepam 1 mg IV every 1 hour for symptomatic control for severe myoclonus. - Acetaminophen 650 mg/20 cc every 6 hours when necessary fever/pain 1 through 4 Oxycodone 5mg every 6 hours PRN pain 5-10. Fentanyl 50 g every 1 hour prn breakthrough pain - Levetiracetam 1000 mg per PEG twice a day seizure CV: Status post cardiac arrest Monitor HR and BP keep MAP>65mmHg - On propranolol 20 mg every 6 hours (tremors/tachycardia) started 09/29, Resp: //Acute hypoxemic respiratory failure //Pre-hospital Aspiration pneumonitis //Mucous plugging - Continue with oxygen - tolerating TP's with 40% FIO2 since yesterday. - Albuterol/ipratropium aerosols every 6 hours and albuterol aerosols when necessary s/p trach 09/17/16. Vijay Jackson and Kunal. Pulm toilet, trach care. Pulm is following- Dr. Bunn GI/FEN: //Transaminitis most likely from shock, resolving. - Tube feedings Jevity 1.5 at 50 L per hour per nutrition recommendations. - s/p PEG 09/20 - repeat GB u/s without signs of cholecystitis 09/18 -Continue sodium chloride 1gram bid - Liver ultrasound 09/12large nonocclusive thrombus and IVC. Renal/: //Cystitis Monitor renal function, I/O's, electrolytes replacement as needed ID: //MSSA pneumonia Sputum with MSSA 09/08. 09/17 and 09/27 Fever secondary to IVC thrombosis and central neuro On Levaquin monitor for signs of infections ( Fever, WBC) Bacitracin to affected helix region. Endo: - SSI if needed to maintain euglycemia/blood sugars less than 185 HEME: //Normocytic anemia //Large IVC thrombus - Monitor CBC CMP coags. - IVC filter placed 09/12 due to inability to anticoagulate (thrombocytopenia) and cerebral edema. - Now platelets improved, on fondaparinux 7.5 mg daily from 09/18/16. 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 KP negative. //DVT GI prophylaxis - IVC filter in place. Continue lansoprazole 30 mg daily/fondaparinux 7.5 mg daily since 09/18/16 Lines: Peripheral IV Discharge Planning Very poor prognosis. Continue treatment for pneumonia. Palliative care following. Further discussion with family planned. Sidney Mari MD Oct 10, 2016 17:17
[2016-10-10] MEDS ORDERED: WARFARIN SOD 7.5 MG TAB PO ONE (18:15)
[2016-10-10 19:05] LABS: POTASSIUM 3.6 MEQ/L (3.5-5.1)
[2016-10-10 19:09] LABS: BICARBONATE 26.8 MEQ/L (21.0-32.0)
[2016-10-10] MEDS: SODIUM CHLORIDE 0.9% FLUSH 10 ML FLUSH IV FLUSH PRN (21:46)
[2016-10-11] VITALS (40 sets, daily range): BP systolic 93–121; BP diastolic 49–80; PULSE 96–118; RESP 20–44; TEMP 98.7–99.6; O2SAT 92–98
[2016-10-11] MEDS: PROPRANOLOL HCL 20 MG TAB G-TUBE SCH ×6 (00:46→23:11)
[2016-10-11] MEDS: clonazePAM 0.5 MG TAB G-TUBE SCH ×2 (02:06→14:00)
[2016-10-11] MEDS: CHLORHEXIDINE GLUCONATE 2 % 1 PACK (2 CLOTHS) TOP SCH (04:00)
[2016-10-11] MEDS ORDERED: FONDAPARINUX SODIUM 2.5 MG/0.5 ML SYRINGE SQ SCH (06:00)
[2016-10-11] MEDS ORDERED: FONDAPARINUX SODIUM 5 MG/0.4 ML SYRINGE SQ SCH (06:00)
[2016-10-11 06:02] LABS: INTERNATIONAL NORMALIZED RATIO 1.1 RATIO; PROTHROMBIN TIME - PATIENT 12.5 SEC (9.8-11.6)
[2016-10-11] MEDS: RESP: ALBUTEROL 2.5 MG/3 ML NEB (PRN) NEB ×3 (07:48→23:42)
--- NOTE | 2016-10-11 08:37 | HHI.PR ---
Subjective Remarks No acute changes overnight per nursing. Continues unresponsive. Objective Vital Signs Date Time Temp Pulse Resp B/P (MAP) Pulse Ox O2 Delivery O2 Flow Rate FiO2 10/11/16 07:49 95 T-piece 35 10/11/16 07:06 102 26 116/80 (92) 98 10/11/16 07:01 98 20 106/65 (79) 94 10/11/16 06:01 100 26 111/68 (82) 95 10/11/16 06:00 102 10/11/16 05:01 98 26 93/55 (68) 94 10/11/16 04:01 99.2 98 20 113/68 (83) 97 10/11/16 04:00 100 10/11/16 04:00 35 10/11/16 03:01 100 27 95/49 (64) 96 10/11/16 02:00 99 10/11/16 02:00 98 26 101/64 (76) 95 10/11/16 01:01 100 24 104/63 (77) 95 10/11/16 00:01 98.7 100 28 115/66 (82) 95 10/11/16 00:00 35 10/11/16 00:00 101 10/10/16 23:01 100 25 100/63 (75) 95 10/10/16 22:01 98 26 108/67 (81) 95 10/10/16 22:00 99 10/10/16 21:01 96 24 103/75 (84) 94 10/10/16 20:28 96 T-piece 6.00 35 10/10/16 20:01 98.9 94 25 94/65 (75) 94 10/10/16 20:00 35 10/10/16 20:00 95 10/10/16 19:01 98 30 111/73 (86) 95 10/10/16 18:00 96 29 114/72 (86) 93 10/10/16 18:00 96 10/10/16 17:01 98 19 110/76 (87) 97 10/10/16 17:00 98 10/10/16 16:00 35 10/10/16 16:00 98 10/10/16 16:00 98.5 96 21 112/72 (85) 97 10/10/16 15:00 100 20 114/70 (85) 98 10/10/16 14:00 100 24 111/72 (85) 98 10/10/16 14:00 100 10/10/16 13:00 98 39 109/74 (86) 94 10/10/16 12:00 99.2 100 20 114/66 (82) 97 10/10/16 12:00 100 10/10/16 12:00 35 10/10/16 11:00 94 10/10/16 11:00 94 23 93/60 (71) 96 10/10/16 10:00 96 10/10/16 10:00 96 19 92/61 (71) 97 10/10/16 09:00 96 25 112/70 (84) 98 10/10/16 09:00 94 I/O 10/10/16 10/10/16 10/10/16 10/11/16 10/11/16 10/11/16 07:00 15:00 23:00 07:00 15:00 23:00 Intake Total 860 ml 650 ml 580 ml Output Total 0 ml Balance 860 ml 0 ml 650 ml 580 ml Tube Feeding 620 ml 350 ml 480 ml Other 240 ml 300 ml 100 ml Tube Feeding Residual Discard 0 ml # Voids 5 3 2 # Bowel Movements 0 2 0 Result Diagram: 10/09/16 0608 10/10/16 1842 Objective Remarks GENERAL: Lying in bed. Unresponsive. no Change from yesterday SKIN: Warm and dry. HEAD: Normocephalic. EYES: No scleral icterus. No injection or drainage. NECK: Supple, trachea midline. No JVD. Tracheostomy in place. No surrounding erythema. CARDIOVASCULAR: Regular rate and rhythm without murmurs, gallops, or rubs. RESPIRATORY: Breath sounds equal bilaterally. No accessory muscle use. GASTROINTESTINAL: Abdomen soft, non-tender, nondistended. PEG tube with no surrounding erythema. MUSCULOSKELETAL: No cyanosis, or edema. BACK: Nontender without obvious deformity. No CVA tenderness. A/P Assessment and Plan 20-year-old female with depression who underwent resuscitation after hanging. 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 Pulmonology following for respiratory failure. On antibiotics. -Discussions have been had with family regarding realistic chances of meaningful recovery, which are low. Family continues to hope for improvement. EEG ordered and pending to assess for possible continued seizure activity. After EEG, will consider consult neurology to give prognosis for family. ==== 10/11/16===== //Respiratory failure. Leukocytosis continues 12.0. Light improvement Continues on antibiotics-appreciate pulmonology assistance //ivc thrombus -with heparin-induced cytopenia. -Continue on 5 mg daily fondaparinux. Discussed again with nursing. Nursing will discuss with pharmacy. There is a weight limit for this medication. NEURO/PSYCH: //Severe anoxic brain injury //Saud common carotid narrowing //Attempted suicide by hanging //Seizure, Myoclonus //Depression - MRI shows evidence of diffuse anoxic brain injury including weighted hyperintensity bilateral caudate, bilateral Allen radiata, bilateral occipital and parietal lobes. - MRA neck bilateral common carotid narrowing-vascular surgery consulted, no intervention. started aspirin 09/10 - CT 09/12-loss salguero/white matter differentiation c/w cerebral edema. ICP monitor 09/12- 09/16. - EEG 09/10 bilateral sharp activity, on Dilantin. Level therapeutic 09/12. DCd Dilantin 09/18/16 due high fever, now on Keppra 1,000mg BID - EEG 09/11 Encephalopathy, no sz. - EEG 09/13severe encephalopathy. (delta waves) - s/p induced hypothermia. - Neurology Dr. Valdez has followed. He states prognosis is poor and recommended comfort measures. - NSG Dr. José states poor prognosis, recommends comfort care. - Toxicology negative - Clonazepam 0.5 mg by PEG every 12 hours scheduled for myoclonus - Lorazepam 1 mg IV every 1 hour for symptomatic control for severe myoclonus. - Acetaminophen 650 mg/20 cc every 6 hours when necessary fever/pain 1 through 4 Oxycodone 5mg every 6 hours PRN pain 5-10. Fentanyl 50 g every 1 hour prn breakthrough pain - Levetiracetam 1000 mg per PEG twice a day seizure CV: Status post cardiac arrest Monitor HR and BP keep MAP>65mmHg - On propranolol 20 mg every 6 hours (tremors/tachycardia) started 09/29, Resp: //Acute hypoxemic respiratory failure //Pre-hospital Aspiration pneumonitis //Mucous plugging - Continue with oxygen - tolerating TP's with 40% FIO2 since yesterday. - Albuterol/ipratropium aerosols every 6 hours and albuterol aerosols when necessary s/p trach 09/17/16. Vijay Jackson and Kunal. Pulm toilet, trach care. Pulm is following- Dr. Bunn GI/FEN: //Transaminitis most likely from shock, resolving. - Tube feedings Jevity 1.5 at 50 L per hour per nutrition recommendations. - s/p PEG 09/20 - repeat GB u/s without signs of cholecystitis 09/18 -Continue sodium chloride 1gram bid - Liver ultrasound 09/12large nonocclusive thrombus and IVC. Renal/: //Cystitis Monitor renal function, I/O's, electrolytes replacement as needed ID: //MSSA pneumonia Sputum with MSSA 09/08. 09/17 and 09/27 Fever secondary to IVC thrombosis and central neuro On Levaquin monitor for signs of infections ( Fever, WBC) Bacitracin to affected helix region. Endo: - SSI if needed to maintain euglycemia/blood sugars less than 185 HEME: //Normocytic anemia //Large IVC thrombus - Monitor CBC CMP coags. - IVC filter placed 09/12 due to inability to anticoagulate (thrombocytopenia) and cerebral edema. - Now platelets improved, on fondaparinux 7.5 mg daily from 09/18/16. 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 KP negative. //DVT GI prophylaxis - IVC filter in place. Continue lansoprazole 30 mg daily/fondaparinux 7.5 mg daily since 09/18/16 Lines: Peripheral IV Discharge Planning Very poor prognosis. Continue treatment for pneumonia. Palliative care following. Further discussion with family planned. Sidney Mari MD Oct 11, 2016 08:37
[2016-10-11] MEDS: ARTIFICIAL TEARS OPTH SOLN 15 ML BTL EACH EYE SCH ×2 (09:00→19:51)
[2016-10-11] MEDS: BACITRACIN TOP OINT 15 GM TUBE TOPICAL SCH (09:00)
[2016-10-11] MEDS: ASPIRIN 81 MG CHEW TAB CHEW SCH (10:12)
[2016-10-11] MEDS: levETIRAcetam 500 MG/5 ML UDC NG SCH ×2 (10:12→19:51)
[2016-10-11] MEDS: DOCUSATE SODIUM 100 MG/10 ML UDC G-TUBE SCH ×2 (10:12→19:51)
[2016-10-11] MEDS: POTASSIUM CHLORIDE 25 MEQ EFFERVESCENT TAB G-TUBE SCH (10:12)
[2016-10-11] MEDS: BISACODYL 10 MG SUPP RECTAL SCH (10:12)
[2016-10-11] MEDS: SODIUM CHLORIDE 1 GRAM TAB G-TUBE SCH ×2 (10:13→19:51)
[2016-10-11] MEDS: LANSOPRAZOLE SOLUTAB 30 MG TAB NG SCH (10:13)
[2016-10-11 13:48] LABS: TRANSFERRIN IRON PROFILE 256 MG/DL (200-360)
[2016-10-11 14:13] LABS: FERRITIN 70 NG/ML (8-252)
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
[2016-10-11] MEDS ORDERED: WARFARIN SOD 5 MG TAB PO SCH (16:00)
[2016-10-11] MEDS ORDERED: WARFARIN SOD 7.5 MG TAB PO ONE (16:00)
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
[2016-10-11] MEDS: FERROUS SULFATE 300 MG /5ML UDC PEG SCH (19:50)
--- NOTE | 2016-10-11 20:51 | HHI.PR ---
Subjective Remarks 20 YOWF with Anoxic encephalopathy, cardiac arrest, hanging Has twitching movements On Trach collar, tolerates No Fever Occ small mucous plugs Objective Vital Signs Vital Signs Date Time Temp Pulse Resp B/P (MAP) Pulse Ox O2 Delivery O2 Flow Rate FiO2 10/11/16 15:01 104 24 114/63 (80) 94 10/11/16 14:01 104 24 108/63 (78) 94 10/11/16 14:00 104 10/11/16 13:01 104 30 100/57 (71) 94 10/11/16 12:01 102 30 105/66 (79) 94 10/11/16 12:00 35 10/11/16 12:00 102 10/11/16 11:51 99.2 111/64 (80) 10/11/16 11:01 100 35 102/63 (76) 93 10/11/16 11:00 100 33 94 10/11/16 10:08 98 26 106/72 (83) 94 10/11/16 10:01 98 26 98/55 (69) 95 10/11/16 10:00 98 10/11/16 10:00 98 26 95 10/11/16 09:01 98 44 106/73 (84) 95 10/11/16 09:00 98 44 95 10/11/16 08:01 100 28 108/67 (81) 92 10/11/16 08:00 35 10/11/16 08:00 100 10/11/16 08:00 100 32 93 10/11/16 07:49 95 T-piece 35 10/11/16 07:06 102 38 116/80 (92) 98 10/11/16 07:06 102 26 116/80 (92) 98 10/11/16 07:01 98 20 106/65 (79) 94 10/11/16 07:01 98 20 106/65 (79) 94 10/11/16 07:00 99.1 96 32 95 10/11/16 06:01 100 26 111/68 (82) 95 10/11/16 06:00 102 10/11/16 05:01 98 26 93/55 (68) 94 10/11/16 04:01 99.2 98 20 113/68 (83) 97 10/11/16 04:00 100 10/11/16 04:00 35 10/11/16 03:01 100 27 95/49 (64) 96 10/11/16 02:00 99 10/11/16 02:00 98 26 101/64 (76) 95 10/11/16 01:01 100 24 104/63 (77) 95 10/11/16 00:01 98.7 100 28 115/66 (82) 95 10/11/16 00:00 35 10/11/16 00:00 101 10/10/16 23:01 100 25 100/63 (75) 95 10/10/16 22:01 98 26 108/67 (81) 95 10/10/16 22:00 99 10/10/16 21:01 96 24 103/75 (84) 94 I/O 10/10/16 10/10/16 10/10/16 10/11/16 10/11/16 10/11/16 07:00 15:00 23:00 07:00 15:00 23:00 Intake Total 860 ml 650 ml 580 ml Output Total 0 ml Balance 860 ml 0 ml 650 ml 580 ml Tube Feeding 620 ml 350 ml 480 ml Other 240 ml 300 ml 100 ml Tube Feeding Residual Discard 0 ml # Voids 5 3 2 # Bowel Movements 0 2 0 Result Diagram: 10/09/16 0608 10/10/16 1842 Objective Remarks GENERAL: Thin built female, on trach tube SKIN: Warm and dry. HEAD: Normocephalic. EYES: No scleral icterus. No injection or drainage. NECK: Supple, trachea midline. No JVD or lymphadenopathy. Has trach CARDIOVASCULAR: Regular rate and rhythm without murmurs, gallops, or rubs. RESPIRATORY: Breath sounds equal bilaterally. No accessory muscle use. GASTROINTESTINAL: Abdomen soft, non-tender, nondistended. PEG tube MUSCULOSKELETAL: No cyanosis, or edema. BACK: Nontender without obvious deformity. No CVA tenderness. A/P Assessment and Plan Resp Failure S/P trach Anoxic encephalopathy cardiac arrest, hanging S/P PEG Had large BM PLAN: Cont Trach collar Trach care Aerosol prn On Keppra TF Add Mucomyst Evgeny Varela MD Oct 11, 2016 20:51
[2016-10-11] MEDS ORDERED: RESP: ACETYLCYSTEINE 10% 30 ML NEB NEB PRN (21:15)
[2016-10-11] MEDS: RESP: ACETYLCYSTEINE 10% 30 ML NEB NEB SCH (23:42)
[2016-10-12] VITALS (34 sets, daily range): BP systolic 94–125; BP diastolic 52–76; PULSE 98–120; RESP 17–40; TEMP 98.9–99.3; O2SAT 93–99
[2016-10-12] MEDS ORDERED: RESP: ACETYLCYSTEINE 10% 30 ML NEB NEB SCH
[2016-10-12] MEDS: clonazePAM 0.5 MG TAB G-TUBE SCH ×2 (00:50→14:26)
[2016-10-12] MEDS: RESP: ALBUTEROL 2.5 MG/3 ML NEB (PRN) NEB ×5 (03:14→20:29)
[2016-10-12] MEDS: RESP: ACETYLCYSTEINE 10% 30 ML NEB NEB SCH ×5 (03:14→20:29)
[2016-10-12] MEDS: CHLORHEXIDINE GLUCONATE 2 % 1 PACK (2 CLOTHS) TOP SCH (04:00)
--- NOTE | 2016-10-12 05:39 | MG ---
cc: YOON ROPER Lab No: Date: 10/11/2016 Age: 20 Sex: F Race: DATE OF [address] Mari Medical History Anoxic encephalopathy. Cardiac arrest. Hung herself with rope. Having twitching movements of hand and feet, history of depression. MEDICATIONS 1. Klonopin. 2. Albuterol. 3. Arixtra. 4. Keppra. 5. Aspirin. DESCRIPTION This is a low voltage EEG with low amplitude delta activity throughout the recording. There is muscle artifact during the recording. Hyperventilation was not done. Photic stimulation did not elicit driving response. There were no electrographic seizures or epileptiform discharges noted during the recording. INTERPRETATION This EEG recording revealed low voltage and slow delta activity throughout that is consistent with severe encephalopathy. Clinical correlation is recommended. MD TEODORA Carlson/BUSHRA /7:38 PM /5:24 AM [facility]
[2016-10-12 05:57] LABS: INTERNATIONAL NORMALIZED RATIO 1.2 RATIO; PROTHROMBIN TIME - PATIENT 12.8 SEC (9.8-11.6)
[2016-10-12] MEDS: FONDAPARINUX SODIUM 5 MG/0.4 ML SYRINGE SQ SCH (06:07)
[2016-10-12] MEDS: PROPRANOLOL HCL 20 MG TAB G-TUBE SCH ×3 (06:07→18:00)
[2016-10-12] MEDS: BACITRACIN TOP OINT 15 GM TUBE TOPICAL SCH (08:03)
[2016-10-12] MEDS: ARTIFICIAL TEARS OPTH SOLN 15 ML BTL EACH EYE SCH ×2 (08:03→21:00)
[2016-10-12] MEDS: ASPIRIN 81 MG CHEW TAB CHEW SCH (08:04)
[2016-10-12] MEDS: FERROUS SULFATE 300 MG /5ML UDC PEG SCH ×2 (08:04→21:02)
[2016-10-12] MEDS: BISACODYL 10 MG SUPP RECTAL SCH (08:04)
[2016-10-12] MEDS: SODIUM CHLORIDE 1 GRAM TAB G-TUBE SCH ×2 (08:04→21:02)
[2016-10-12] MEDS: levETIRAcetam 500 MG/5 ML UDC NG SCH ×2 (08:04→21:03)
[2016-10-12] MEDS: LANSOPRAZOLE SOLUTAB 30 MG TAB NG SCH (08:04)
[2016-10-12] MEDS: DOCUSATE SODIUM 100 MG/10 ML UDC G-TUBE SCH ×2 (08:04→21:02)
[2016-10-12] MEDS: POTASSIUM CHLORIDE 25 MEQ EFFERVESCENT TAB G-TUBE SCH (08:04)
[2016-10-12] MEDS ORDERED: WARFARIN SOD 10 MG TAB PO ONE (10:30)
--- NOTE | 2016-10-12 20:15 | HHI.PR ---
Subjective Remarks 20 YOWF with Anoxic encephalopathy, cardiac arrest, hanging Has twitching movements On Trach collar, tolerates No Fever Occ small mucous plugs No new complaint Objective Vital Signs Vital Signs Date Time Temp Pulse Resp B/P (MAP) Pulse Ox O2 Delivery O2 Flow Rate FiO2 10/12/16 18:00 100 10/12/16 18:00 108 26 102/61 (75) 95 10/12/16 17:00 110 24 108/66 (80) 95 10/12/16 16:00 98.9 104 21 110/67 (81) 96 10/12/16 16:00 104 10/12/16 15:00 102 24 111/ 95 10/12/16 14:00 100 23 109/69 (82) 99 10/12/16 14:00 100 10/12/16 13:00 102 25 94/59 (71) 94 10/12/16 12:00 99.2 104 19 99/62 (74) 96 10/12/16 12:00 104 10/12/16 11:00 106 20 105/63 (77) 97 10/12/16 10:00 106 10/12/16 10:00 106 22 101/61 (74) 97 10/12/16 09:01 106 10/12/16 09:01 106 22 110/66 (81) 97 10/12/16 08:01 99.0 98 27 119/76 (90) 99 10/12/16 08:01 98 10/12/16 07:58 96 T-piece 35 10/12/16 07:01 98 18 106/64 (78) 95 10/12/16 07:01 98 18 106/64 (78) 95 10/12/16 07:01 98 10/12/16 07:00 98 17 95 10/12/16 07:00 98 10/12/16 06:01 102 10/12/16 06:01 102 24 111/72 (85) 97 10/12/16 06:01 102 36 111/72 (85) 97 10/12/16 06:00 102 40 98 10/12/16 06:00 104 10/12/16 06:00 102 10/12/16 05:01 104 25 97/54 (68) 95 10/12/16 05:01 104 25 97/54 (68) 95 10/12/16 05:01 104 10/12/16 05:00 104 26 95 10/12/16 05:00 104 10/12/16 04:01 99.3 106 26 110/68 (82) 96 10/12/16 04:01 106 26 110/68 (82) 96 10/12/16 04:01 106 10/12/16 04:00 106 26 95 10/12/16 04:00 35 10/12/16 04:00 102 10/12/16 04:00 106 10/12/16 03:01 104 27 99/52 (68) 93 10/12/16 03:01 104 10/12/16 03:01 104 27 99/52 (68) 93 10/12/16 03:00 106 27 93 10/12/16 03:00 106 10/12/16 02:01 108 28 116/75 (89) 96 10/12/16 02:01 108 10/12/16 02:01 108 28 116/75 (89) 96 10/12/16 02:00 108 10/12/16 02:00 108 28 96 10/12/16 02:00 109 10/12/16 01:01 108 24 125/73 (90) 95 10/12/16 01:01 108 34 125/73 (90) 95 10/12/16 01:01 108 10/12/16 01:00 106 29 96 10/12/16 01:00 106 10/12/16 00:01 108 10/12/16 00:01 108 29 118/71 (87) 99 10/12/16 00:01 108 29 118/71 (87) 99 10/12/16 00:00 119 10/12/16 00:00 35 10/12/16 00:00 108 27 99 10/12/16 00:00 108 10/11/16 23:01 99.6 118 24 121/71 (88) 95 10/11/16 22:01 112 25 119/71 (87) 93 10/11/16 22:00 114 10/11/16 21:02 95 T-piece 6.00 35 10/11/16 21:01 106 23 119/76 (90) 94 I/O 8/28/17 8/28/17 8/28/17 8/29/17 8/29/17 8/29/17 07:00 15:00 23:00 07:00 15:00 23:00 Intake Total 580 ml 580 ml 700 ml 700 ml Balance 580 ml 580 ml 700 ml 700 ml Tube Feeding 480 ml 480 ml 600 ml 600 ml Other 100 ml 100 ml 100 ml 100 ml # Voids 2 2 3 4 # Bowel Movements 0 0 0 0 Result Diagram: 10/09/16 0608 10/10/16 1842 Objective Remarks GENERAL: Thin built female, on trach tube SKIN: Warm and dry. HEAD: Normocephalic. EYES: No scleral icterus. No injection or drainage. NECK: Supple, trachea midline. No JVD or lymphadenopathy. Has trach CARDIOVASCULAR: Regular rate and rhythm without murmurs, gallops, or rubs. RESPIRATORY: Breath sounds equal bilaterally. No accessory muscle use. GASTROINTESTINAL: Abdomen soft, non-tender, nondistended. PEG tube MUSCULOSKELETAL: No cyanosis, or edema. BACK: Nontender without obvious deformity. No CVA tenderness. A/P Assessment and Plan Resp Failure S/P trach Anoxic encephalopathy cardiac arrest, hanging S/P PEG Had large BM PLAN: Cont Trach collar Trach care Aerosol prn On Keppra TF Mucomyst Evgeny Varela MD Oct 12, 2016 20:15
--- NOTE | 2016-10-12 23:39 | HHI.PR ---
Subjective Remarks Follow up for Anoxic brain injury, cardiac arrest following a suicidal attempt by hanging. Patient has twitching movements including eye lids. No meaningful communications. Mother and grandma at bedside. Objective Vitals Vital Signs Date Time Temp Pulse Resp B/P (MAP) Pulse Ox O2 Delivery O2 Flow Rate FiO2 10/12/16 20:29 97 T-piece 6.00 35 10/12/16 18:00 100 10/12/16 18:00 108 26 102/61 (75) 95 10/12/16 17:00 110 24 108/66 (80) 95 10/12/16 16:00 98.9 104 21 110/67 (81) 96 10/12/16 16:00 104 10/12/16 15:00 102 24 111/ 95 10/12/16 14:00 100 23 109/69 (82) 99 10/12/16 14:00 100 10/12/16 13:00 102 25 94/59 (71) 94 10/12/16 12:00 99.2 104 19 99/62 (74) 96 10/12/16 12:00 104 10/12/16 11:00 106 20 105/63 (77) 97 10/12/16 10:00 106 10/12/16 10:00 106 22 101/61 (74) 97 10/12/16 09:01 106 10/12/16 09:01 106 22 110/66 (81) 97 10/12/16 08:01 99.0 98 27 119/76 (90) 99 10/12/16 08:01 98 10/12/16 07:58 96 T-piece 35 10/12/16 07:01 98 18 106/64 (78) 95 10/12/16 07:01 98 18 106/64 (78) 95 10/12/16 07:01 98 10/12/16 07:00 98 17 95 10/12/16 07:00 98 10/12/16 06:01 102 10/12/16 06:01 102 24 111/72 (85) 97 10/12/16 06:01 102 36 111/72 (85) 97 10/12/16 06:00 102 40 98 10/12/16 06:00 104 10/12/16 06:00 102 10/12/16 05:01 104 25 97/54 (68) 95 10/12/16 05:01 104 25 97/54 (68) 95 10/12/16 05:01 104 10/12/16 05:00 104 26 95 10/12/16 05:00 104 10/12/16 04:01 99.3 106 26 110/68 (82) 96 10/12/16 04:01 106 26 110/68 (82) 96 10/12/16 04:01 106 10/12/16 04:00 106 26 95 10/12/16 04:00 35 10/12/16 04:00 102 10/12/16 04:00 106 10/12/16 03:01 104 27 99/52 (68) 93 10/12/16 03:01 104 10/12/16 03:01 104 27 99/52 (68) 93 10/12/16 03:00 106 27 93 10/12/16 03:00 106 10/12/16 02:01 108 28 116/75 (89) 96 10/12/16 02:01 108 10/12/16 02:01 108 28 116/75 (89) 96 10/12/16 02:00 108 10/12/16 02:00 108 28 96 10/12/16 02:00 109 10/12/16 01:01 108 24 125/73 (90) 95 10/12/16 01:01 108 34 125/73 (90) 95 10/12/16 01:01 108 10/12/16 01:00 106 29 96 10/12/16 01:00 106 10/12/16 00:01 108 10/12/16 00:01 108 29 118/71 (87) 99 10/12/16 00:01 108 29 118/71 (87) 99 10/12/16 00:00 119 10/12/16 00:00 35 10/12/16 00:00 108 27 99 10/12/16 00:00 108 I/O 10/12/16 10/12/16 10/12/16 10/13/16 10/13/16 10/13/16 06:59 14:59 22:59 06:59 14:59 22:59 Intake Total 700 ml 700 ml Balance 700 ml 700 ml Tube Feeding 600 ml 600 ml Other 100 ml 100 ml # Voids 3 4 # Bowel Movements 0 0 Result Diagram: 10/09/16 0608 8/27/17 1842 Imaging Last Impressions Chest X-Ray 10/07/16 0600 Signed Impressions: Service Date/Time: , October 07, 2016 06:20 - CONCLUSION: 1. No new findings compared with October 02. Tracheostomy unchanged. No pneumothorax. Gideon Brown MD Liver Ultrasound 09/18/16 0000 Signed Impressions: Service Date/Time: Sunday, September 18, 2016 09:27 - CONCLUSION: 1. There is sludge within the gallbladder. No other findings are present to indicate acute cholecystitis. 2. Mild splenomegaly. Miller Lee MD IVC Filter Placement X-Ray 09/12/16 Signed Impressions: Service Date/Time: Monday, September 12, 2016 20:00 - CONCLUSION: Caval thrombosis extending from the suprarenal IVC to the infrarenal IVC. This is nonocclusive. A retrievable IVC filter was deployed below the main hepatic veins but it was necessary to cross an accessory right hepatic vein. Jose Armando Jackson Jr., MD Head CT 09/12/16 Signed Impressions: Service Date/Time: Monday, September 12, 2016 09:29 - CONCLUSION: Mild loss of lemos matter definition that can be seen with increasing intracranial pressure. Ricki Cavazos MD FACR Neck Magnetic Resonance Angiography 09/09/16 Signed Impressions: Service Date/Time: August 16:02 - CONCLUSION: 1. Moderate to severe smooth narrowing of the left common carotid artery and also moderate narrowing of the proximal right common carotid artery as well as narrowing of both proximal vertebral arteries likely related to recent hanging. Etiology could be related to vasospasm or recent extrinsic prolonged compression. The distal internal carotid arteries and vertebral artery have more normal calibers. Findings called to Dr. Bhatt at the time of dictation. Gideon Brown MD Cervical Spine MRI 09/09/16 0000 Signed Impressions: Service Date/Time: August 16:02 - CONCLUSION: 1. Very minimal degenerative disc disease at C5-6. 2. No acute fracture or prevertebral soft tissue swelling. 3. No focal cervical cord abnormality. Tray Santiago MD Brain MRI 09/09/16 Signed Impressions: Service Date/Time: August 16:02 - CONCLUSION: 1. Diffuse FLAIR-weighted hyperintensities involving the caudate nuclei bilaterally, bilateral hummel radiata, as well as the bilateral parietal and occipital cortex consistent with the patient's clinical diagnosis of anoxic encephalopathy. 2. No acute hemorrhage, midline shift, extra-axial fluid collection or abnormal enhancement. 3. Small fluid level within the right sphenoid sinus. Tray Santiago MD Cervical Spine CT 09/07/16 1800 Signed Impressions: Service Date/Time: Wednesday, September 07, 2016 18:06 - CONCLUSION: 1. No fracture or subluxation. 2. Scattered groundglass nodules throughout the upper lobes, nonspecific but can be seen with hypersensitivity pneumonitis. Artem Madera MD Objective Remarks GENERAL: Eyes open, no meaningful communication. Has diffuse twitching movements. SKIN: Warm and dry. HEAD: Normocephalic. EYES: No scleral icterus. No injection or drainage. Pupils somewhat dilated but mildly reactive to light. NECK: Supple, trachea midline. Tracheostomy in place. No surrounding erythema. CARDIOVASCULAR: Regular rate and rhythm without murmurs, gallops, or rubs. RESPIRATORY: Breath sounds equal bilaterally. No accessory muscle use. GASTROINTESTINAL: Abdomen soft, non-tender, nondistended. PEG tube in place. MUSCULOSKELETAL: No cyanosis, or edema. BACK: Nontender without obvious deformity. No CVA tenderness. Procedures EEG 10/12/2016 This EEG recording revealed low voltage and slow delta activity throughout that is consistent with severe encephalopathy. Clinical correlation is recommended. A/P Assessment and Plan 20-year-old female with depression who underwent resuscitation after hanging. 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 Pulmonology following for respiratory failure. //Respiratory failure. Leukocytosis continues 12.0. Light improvement Continues on antibiotics-appreciate pulmonology assistance //ivc thrombus -with heparin-induced cytopenia. - Continue on 5 mg daily fondaparinux. Continue Warfarin per Pharmacy dosing. NEURO/PSYCH: //Severe anoxic brain injury //Saud common carotid narrowing //Attempted suicide by hanging //Seizure, Myoclonus //Depression - MRI shows evidence of diffuse anoxic brain injury including weighted hyperintensity bilateral caudate, bilateral Hummel radiata, bilateral occipital and parietal lobes. - MRA neck bilateral common carotid narrowing-vascular surgery consulted, no intervention. started aspirin 09/10 - CT 09/12-loss salguero/white matter differentiation c/w cerebral edema. ICP monitor 09/12- 09/16. - EEG 09/10 bilateral sharp activity, on Dilantin. Level therapeutic 09/12. DCd Dilantin 09/18/16 due high fever, now on Keppra 1,000mg BID - EEG 09/11 Encephalopathy, no sz. - EEG 09/13severe encephalopathy. (delta waves) -EEG 10/12/2016 --> low voltage, delta waves. - s/p induced hypothermia. - Neurology Dr. Valdez has followed. He states prognosis is poor and recommended comfort measures. - NSG Dr. José states poor prognosis, recommends comfort care. - Toxicology negative - Clonazepam 0.5 mg by PEG every 12 hours scheduled for myoclonus - Lorazepam 1 mg IV every 1 hour for symptomatic control for severe myoclonus. - Acetaminophen 650 mg/20 cc every 6 hours when necessary fever/pain 1 through 4 Oxycodone 5mg every 6 hours PRN pain 5-10. Fentanyl 50 g every 1 hour prn breakthrough pain - Levetiracetam 1000 mg per PEG twice a day seizure CV: Status post cardiac arrest Monitor HR and BP keep MAP>65mmHg - On propranolol 20 mg every 6 hours (tremors/tachycardia) started 09/29, Resp: //Acute hypoxemic respiratory failure //Pre-hospital Aspiration pneumonitis //Mucous plugging - Continue with oxygen - tolerating TP's with 40% FIO2 since yesterday. - Albuterol/ipratropium aerosols every 6 hours and albuterol aerosols when necessary s/p trach 09/17/16. Vijay Jackson and Kunal. Pulm toilet, trach care. Pulm is following- Dr. Bunn GI/FEN: //Transaminitis most likely from shock, resolving. - Tube feedings Jevity 1.5 at 50 L per hour per nutrition recommendations. - s/p PEG 09/20 - repeat GB u/s without signs of cholecystitis 09/18 -Continue sodium chloride 1gram bid - Liver ultrasound 09/12large nonocclusive thrombus and IVC. Renal/: //Cystitis Monitor renal function, I/O's, electrolytes replacement as needed ID: //MSSA pneumonia Sputum with MSSA 09/08. 09/17 and 09/27 Fever secondary to IVC thrombosis and central neuro Bacitracin to affected helix region. Endo: - SSI if needed to maintain euglycemia/blood sugars less than 185 HEME: //Normocytic anemia //Large IVC thrombus - Monitor CBC CMP coags. - IVC filter placed 09/12 due to inability to anticoagulate (thrombocytopenia) and cerebral edema. - Currently on Fondaparinu 5mg Qday and Warfarin. INR 1.2 on 10/12/2016. //DVT GI prophylaxis - IVC filter in place. Continue lansoprazole 30 mg daily/fondaparinux 7.5 mg daily since 09/18/16 Full code. Fondaparinux. Discussed at length with mother and Grandmother this afternoon. They would like to feel comfortable with their decision regarding Ms. Negrete's clinical condition. They understand very well that prognosis is poor. We will continue supportive care. Grazyna Guerrero DO Oct 12, 2016 23:39
[2016-10-13] VITALS (25 sets, daily range): BP systolic 101–123; BP diastolic 65–84; PULSE 102–122; RESP 19–37; TEMP 97–99.7; O2SAT 91–99
[2016-10-13] MEDS: RESP: ALBUTEROL 2.5 MG/3 ML NEB (PRN) NEB ×5 (00:06→15:32)
[2016-10-13] MEDS: RESP: ACETYLCYSTEINE 10% 30 ML NEB NEB SCH ×5 (00:06→15:32)
[2016-10-13] MEDS: clonazePAM 0.5 MG TAB G-TUBE SCH ×2 (01:37→13:33)
[2016-10-13] MEDS: CHLORHEXIDINE GLUCONATE 2 % 1 PACK (2 CLOTHS) TOP SCH (01:38)
[2016-10-13] MEDS: PROPRANOLOL HCL 20 MG TAB G-TUBE SCH ×4 (05:27→18:00)
[2016-10-13] MEDS: FONDAPARINUX SODIUM 5 MG/0.4 ML SYRINGE SQ SCH (05:27)
[2016-10-13 06:23] LABS: INTERNATIONAL NORMALIZED RATIO 1.8 RATIO; PROTHROMBIN TIME - PATIENT 20.4 SEC (9.8-11.6)
[2016-10-13] MEDS: SODIUM CHLORIDE 1 GRAM TAB G-TUBE SCH (08:28)
[2016-10-13] MEDS: FERROUS SULFATE 300 MG /5ML UDC PEG SCH (08:28)
[2016-10-13] MEDS: POTASSIUM CHLORIDE 25 MEQ EFFERVESCENT TAB G-TUBE SCH (08:28)
[2016-10-13] MEDS: LANSOPRAZOLE SOLUTAB 30 MG TAB NG SCH (08:28)
[2016-10-13] MEDS: ASPIRIN 81 MG CHEW TAB CHEW SCH (08:28)
[2016-10-13] MEDS: BACITRACIN TOP OINT 15 GM TUBE TOPICAL SCH (08:29)
[2016-10-13] MEDS: BISACODYL 10 MG SUPP RECTAL SCH (08:29)
[2016-10-13] MEDS: SODIUM CHLORIDE 0.9% FLUSH 10 ML FLUSH IV FLUSH PRN (08:29)
[2016-10-13] MEDS: DOCUSATE SODIUM 100 MG/10 ML UDC G-TUBE SCH (08:29)
[2016-10-13] MEDS: ARTIFICIAL TEARS OPTH SOLN 15 ML BTL EACH EYE SCH (08:29)
[2016-10-13] MEDS: levETIRAcetam 500 MG/5 ML UDC NG SCH ×2 (08:29→22:39)
--- NOTE | 2016-10-13 14:37 | HHI.PR ---
Objective Vital Signs Date Time Temp Pulse Resp B/P (MAP) Pulse Ox O2 Delivery O2 Flow Rate FiO2 10/13/16 11:02 114 27 110/78 (89) 96 10/13/16 10:00 112 35 114/72 (86) 97 10/13/16 10:00 112 10/13/16 09:02 112 36 120/84 (96) 97 10/13/16 08:05 92 T-piece 6.00 35 10/13/16 08:02 99.0 110 28 110/73 (85) 98 10/13/16 08:00 109 10/13/16 07:02 108 37 112/70 (84) 95 10/13/16 06:02 110 29 112/69 (83) 95 10/13/16 06:00 106 10/13/16 05:02 108 29 106/72 (83) 94 10/13/16 04:01 99.7 112 26 116/68 (84) 96 10/13/16 04:00 113 10/13/16 03:01 108 25 101/65 (77) 95 10/13/16 02:01 106 30 109/73 (85) 98 10/13/16 02:00 110 10/13/16 01:01 102 22 110/68 (82) 91 10/13/16 00:00 121 10/13/16 00:00 98.0 121 24 123/77 (92) 99 10/12/16 23:01 120 30 121/72 (88) 96 10/12/16 22:01 120 24 122/69 (86) 97 10/12/16 22:00 104 10/12/16 21:01 118 26 121/74 (90) 99 10/12/16 20:29 97 T-piece 6.00 35 10/12/16 20:00 111 10/12/16 20:00 99.1 111 22 110/75 (87) 96 10/12/16 18:00 100 10/12/16 18:00 108 26 102/61 (75) 95 10/12/16 17:00 110 24 108/66 (80) 95 10/12/16 16:00 98.9 104 21 110/67 (81) 96 10/12/16 16:00 104 10/12/16 15:00 102 24 111/ 95 I/O 810/12/16 10/12/16 10/13/16 10/13/16 10/13/16 07:00 15:00 23:00 07:00 15:00 23:00 Intake Total 700 ml 700 ml Balance 700 ml 700 ml Tube Feeding 600 ml 600 ml Other 100 ml 100 ml # Voids 3 4 # Bowel Movements 0 0 Result Diagram: 10/09/16 0608 10/10/16 1842 Nikhil Santiago MD Oct 13, 2016 14:37
[2016-10-13] MEDS ORDERED: WARFARIN SOD 7.5 MG TAB PO SCH (16:00)
--- NOTE | 2016-10-13 16:17 | HHI.PR ---
Subjective Remarks Was called to bedside by patient's family, namely grandmother and mother who are wanting to know the different options for comfort care. Both individuals make it very clear to me that they want to "end her suffering," and the mother says that they do not want prolong care any further after being explained hospice versus comfort care options. Mother then provides her own history of the patient's condition to me stating that she hung herself in an attempt for suicide due to her mental health condition. I have reviewed the chart and in summary have noted that the patient had an anoxic brain injury with poor prognosis for multiple specialties including neurosurgery. Objective Vital Signs Date Time Temp Pulse Resp B/P (MAP) Pulse Ox O2 Delivery O2 Flow Rate FiO2 10/13/16 14:00 104 10/13/16 12:00 122 10/13/16 11:02 114 27 110/78 (89) 96 10/13/16 10:00 112 35 114/72 (86) 97 10/13/16 10:00 112 10/13/16 09:02 112 36 120/84 (96) 97 10/13/16 08:05 92 T-piece 6.00 35 10/13/16 08:02 99.0 110 28 110/73 (85) 98 10/13/16 08:00 109 10/13/16 07:02 108 37 112/70 (84) 95 10/13/16 06:02 110 29 112/69 (83) 95 10/13/16 06:00 106 10/13/16 05:02 108 29 106/72 (83) 94 10/13/16 04:01 99.7 112 26 116/68 (84) 96 10/13/16 04:00 113 10/13/16 03:01 108 25 101/65 (77) 95 10/13/16 02:01 106 30 109/73 (85) 98 10/13/16 02:00 110 10/13/16 01:01 102 22 110/68 (82) 91 10/13/16 00:00 121 10/13/16 00:00 98.0 121 24 123/77 (92) 99 10/12/16 23:01 120 30 121/72 (88) 96 10/12/16 22:01 120 24 122/69 (86) 97 10/12/16 22:00 104 10/12/16 21:01 118 26 121/74 (90) 99 10/12/16 20:29 97 T-piece 6.00 35 10/12/16 20:00 111 10/12/16 20:00 99.1 111 22 110/75 (87) 96 10/12/16 18:00 100 10/12/16 18:00 108 26 102/61 (75) 95 10/12/16 17:00 110 24 108/66 (80) 95 I/O 10/12/16 10/12/16 10/12/16 10/13/16 10/13/16 10/13/16 07:00 15:00 23:00 07:00 15:00 23:00 Intake Total 700 ml 700 ml Balance 700 ml 700 ml Tube Feeding 600 ml 600 ml Other 100 ml 100 ml # Voids 3 4 # Bowel Movements 0 0 Result Diagram: 10/09/1660710/10/16 1842 Objective Remarks GENERAL: Resting in bed, comfortably, on tracheostomy CARDIOVASCULAR: Regular rate and rhythm without murmurs, gallops, or rubs. RESPIRATORY: Scattered breath sounds, unlabored GASTROINTESTINAL: Abdomen soft, nondistended MUSCULOSKELETAL: No cyanosis, or edema. A/P Assessment and Plan 20-year-old female with depression who underwent resuscitation after hanging. 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 Pulmonology following for respiratory failure. //Respiratory failure. Continues on antibiotics-appreciate pulmonology assistance //ivc thrombus -with heparin-induced cytopenia. - Continue on 5 mg daily fondaparinux. Continue Warfarin per Pharmacy dosing. //Severe anoxic brain injury //Saud common carotid narrowing //Attempted suicide by hanging //Seizure, Myoclonus //Depression I have placed a hospice consult to help with the patient's family's with their decision making, they are very clear that they would like to withdraw care and minimize any prolonging of the patient's suffering. They have agreed to a DO NOT RESUSCITATE status. Nikhil Santiago MD Oct 13, 2016 16:17
[2016-10-13] MEDS ORDERED: ARTIFICIAL TEARS OPTH SOLN 15 ML BTL EACH EYE PRN (18:45)
[2016-10-13] MEDS ORDERED: MORPHINE SULFATE 8 MG/ML INJ IV PUSH PRN (19:00)
[2016-10-13] MEDS ORDERED: ACETAMINOPHEN 650 MG SUPP RECTAL PRN (19:00)
[2016-10-13] MEDS ORDERED: BISACODYL 10 MG SUPP RECTAL PRN ×2 (19:00→23:15)
[2016-10-13] MEDS ORDERED: LORazepam 2 MG/ML VIAL IV PRN (19:00)
[2016-10-13] MEDS ORDERED: MORPHINE SULFATE 4 MG/ML INJ IV PRN (19:00)
[2016-10-13] MEDS ORDERED: HYOSCYAMINE SOLN 0.125 MG/ML 15 ML BTL SL PRN (19:30)
--- NOTE | 2016-10-13 19:39 | HHI.PR ---
Subjective Remarks 20 YOWF with Anoxic encephalopathy, cardiac arrest, hanging Has twitching movements On Trach collar, tolerates No Fever Objective Vital Signs Vital Signs Date Time Temp Pulse Resp B/P (MAP) Pulse Ox O2 Delivery O2 Flow Rate FiO2 10/13/16 17:34 Room Air 10/13/16 17:10 106 10/13/16 16:16 106 19 109/70 (83) 95 10/13/16 14:02 104 32 108/65 (79) 91 10/13/16 14:00 104 10/13/16 13:02 110 31 111/77 (88) 98 10/13/16 12:02 99.1 122 37 122/76 (91) 97 10/13/16 12:00 122 10/13/16 11:02 114 27 110/78 (89) 96 10/13/16 10:00 112 35 114/72 (86) 97 10/13/16 10:00 112 10/13/16 09:02 112 36 120/84 (96) 97 10/13/16 08:05 92 T-piece 6.00 35 10/13/16 08:02 99.0 110 28 110/73 (85) 98 10/13/16 08:00 93 T-Piece 28 10/13/16 08:00 109 10/13/16 07:02 108 37 112/70 (84) 95 10/13/16 06:02 110 29 112/69 (83) 95 10/13/16 06:00 106 10/13/16 05:02 108 29 106/72 (83) 94 10/13/16 04:01 99.7 112 26 116/68 (84) 96 10/13/16 04:00 113 10/13/16 03:01 108 25 101/65 (77) 95 10/13/16 02:01 106 30 109/73 (85) 98 10/13/16 02:00 110 10/13/16 01:01 102 22 110/68 (82) 91 10/13/16 00:00 121 10/13/16 00:00 98.0 121 24 123/77 (92) 99 10/12/16 23:01 120 30 121/72 (88) 96 10/12/16 22:01 120 24 122/69 (86) 97 10/12/16 22:00 104 10/12/16 21:01 118 26 121/74 (90) 99 10/12/16 20:29 97 T-piece 6.00 35 10/12/16 20:00 111 10/12/16 20:00 99.1 111 22 110/75 (87) 96 I/O 10/12/16 10/12/16 10/12/16 10/13/16 10/13/16 10/13/16 07:00 15:00 23:00 07:00 15:00 23:00 Intake Total 700 ml 700 ml 1996 ml Balance 700 ml 700 ml 1996 ml Tube Feeding 600 ml 600 ml 1756 ml Other 100 ml 100 ml 240 ml # Voids 3 4 6 # Bowel Movements 0 0 1 Result Diagram: 10/09/16 0608 10/10/16 1842 Objective Remarks GENERAL: Thin built female, on trach tube SKIN: Warm and dry. HEAD: Normocephalic. EYES: No scleral icterus. No injection or drainage. NECK: Supple, trachea midline. No JVD or lymphadenopathy. Has trach CARDIOVASCULAR: Regular rate and rhythm without murmurs, gallops, or rubs. RESPIRATORY: Breath sounds equal bilaterally. No accessory muscle use. GASTROINTESTINAL: Abdomen soft, non-tender, nondistended. PEG tube MUSCULOSKELETAL: No cyanosis, or edema. BACK: Nontender without obvious deformity. No CVA tenderness. A/P Assessment and Plan Resp Failure S/P trach Anoxic encephalopathy cardiac arrest, hanging S/P PEG Had large BM PLAN: Cont Trach collar Trach care Aerosol prn On Keppra JHospice care I will sign off Evgeny Bunn MD Oct 13, 2016 19:39
[2016-10-13] MEDS ORDERED: LORazepam 2 MG/ML VIAL IV SCH (20:00)
[2016-10-13] MEDS ORDERED: MORPHINE SULFATE 8 MG/ML INJ IV PUSH SCH (20:00)
[2016-10-14] VITALS: BP 110/71; PULSE 88; RESP 12; TEMP 98.3; O2SAT 86
[2016-10-14] MEDS ORDERED: HYOSCYAMINE SOLN 0.125 MG/ML 15 ML BTL SL PRN
[2016-10-14] MEDS ORDERED: ARTIFICIAL TEARS OPTH SOLN 15 ML BTL EACH EYE PRN
[2016-10-14] MEDS ORDERED: MORPHINE SULFATE 8 MG/ML INJ IV PUSH PRN
[2016-10-14] MEDS: MORPHINE SULFATE 8 MG/ML INJ IV PUSH SCH ×6 (00:17→20:00)
[2016-10-14] MEDS: LORazepam 2 MG/ML VIAL IV SCH ×6 (00:17→20:04)
[2016-10-14 08:15] VITALS: BP 90/59; PULSE 90; RESP 19; O2SAT 81
[2016-10-14] MEDS: levETIRAcetam 500 MG/5 ML UDC SCH ×2 (10:06→20:05)
[2016-10-14 16:00] VITALS: PULSE 110; O2SAT 77
--- NOTE | 2016-10-14 16:39 | HHI.HCPN ---
Reason for visit a. To assist with evaluation and management of symptoms including: Dyspnea , possible pain; encephalopathy; myoclonus. b. To assist medical decision maker(s) with: better understanding of current medical conditions; weighing benefits/burdens of medical treatment options; making medical treatment decisions. . Subjective/Interval History Hospice GIP visit: Patient seen and assessed in room 8404 s/p hospice admission on 10/13/2016. Patient's mother and grandmother are at bedside. Also present hospice nurse ( Xin) and Pavithra JOY. Family stating they just want Aziza to be comfortable and they do not want her pain to be prolonged any longer. No concerns or complaints at this time. Grieving appropriately at this time. Questions answered to the best of my ability. She remains unresponsive, showing no signs or symptoms of nonverbal pain. Pulse : 110, respirations 21, BP 100/66, oxygen saturation 76% on room air. Patient is receiving scheduled morphine 10mg IV and lorazepam 4mg IV q4 hours around-the -clock. PRN medications are also available. Reviewed medical treatment plan with patient's nurse. Hospice will continue to follow for symptom management and to provide the family with ongoing support and end-of-life education. . Advance Directives Living Will: Never completed Health Care Surrogate: Never completed Durable Power of Legal Billing Specialist: Never completed Advance Directive Specifics Significant change in goals: Patient admitted to hospice on 10/13/2016 for symptom management and end-of-life care. . Objective Vital Signs Date Time Temp Pulse Resp B/P (MAP) Pulse Ox O2 Delivery O2 Flow Rate FiO2 10/14/16 16:00 110 77 10/14/16 08:15 90 19 90/59 (69) 81 10/14/16 07:15 Room Air 10/14/16 00:22 16 10/14/16 00:00 98.3 88 12 110/71 (84) 86 10/13/16 20:00 97.0 112 22 10/13/16 19:00 Room Air 10/13/16 17:34 Room Air 10/13/16 17:10 106 Intake & Output 10/14/16 10/14/16 07:00 19:00 Intake Total 0 ml Balance 0 ml Tube Feeding 0 ml # Voids 5 # Bowel Movements 0 . Physical Exam CONSTITUTIONAL/GENERAL: This is an adequately nourished patient on room air via the Ostomy TUBES/LINES/DRAINS: Oral bite block in place, Tracheostomy; PEG clamped; PIV x 1 SKIN: No jaundice, rashes, or lesions. No wounds seen anteriorly. Skin temperature appropriate. Not diaphoretic. Pale EYES: Eyes closed, did not attempt open ENT: Nose without bleeding or purulent drainage. NECK: Tracheostomy CARDIOVASCULAR: Tachycardic ; Regular rhythm without murmurs, gallops, or rubs. No JVD. Peripheral pulses symmetric. RESPIRATORY/CHEST: Shallow, unlabored respirations. No wheezes or crackles. GASTROINTESTINAL: Abdomen soft, nondistended. PEG clamped, not being used. MUSCULOSKELETAL: Extremities without clubbing, cyanosis; cold to touch. 2 + edema of the distal extremities. No mottling or clubbing. NEUROLOGICAL: Unresponsive to voice, touch, or painful stimuli. Myoclonus present. PPS 10% PSYCHIATRIC: Unable to evaluate due to her clinical condition . Diagnostic Tests Laboratory Laboratory Tests Test 10/12/16 04:33 10/13/16 05:45 Prothrombin Time 12.8 SEC (9.8-11.6) 20.4 SEC (9.8-11.6) Prothromb Time International Ratio 1.2 RATIO 1.8 RATIO . Result Diagram: 10/10/16 1842 Procedures [place] bolt 09/12/16 (and subsequent removal) Tracheostomy PEG tube placement . 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 . (2) pain 0-10 Scale: Unable to quantify Comment: Possible sources of pain include trauma from hanging; tracheostomy wound; prolonged bedbound status; venous access catheters; anton; etc. Pertinent Non-Medical Issues Psychosocial: Unmarried, no children. Spiritual: Not spiritual or mormon, but family reports that they are Jain and quite spiritual. Their rabbi has participated in care during this hospitalization. has told mother "she should give it a month," but family is not wanting to put a specific timeframe on this. Legal: The patient lacks capacity for decision-making and will not regain that capacity. The patient's father has not been a part of her life since , and his whereabouts are unknown. The patient is unmarried, and her mother is thus the decision making proxy. Ethical issues impacting care: None . Important Contacts Mother: Agnieszka Palacio (Shay)tanmay [phone] Grandmother: Loy Garcia (Nina) [phone] Boyfriend: Seth Azul" [facility] [phone] . Prognosis The patient's prognosis is poor, and clearly she will not recover significant brain function. If the goals become comfort oriented, she is appropriate for withdrawal of life support, and hospice care. . Code Status: Full Code Plan == NO CODE-DNR/DNI ==GOALS: Family transitioned to inpatient hospice on 10/13/2016 or symptom management and end-of-life care. Family stating they just want [place] to be comfortable and they do not want her pain to be prolonged any longer. No concerns or complaints at this time. Grieving appropriately at this time. Questions answered to the best of my ability. 10/11/16: I had a lengthy conversation with the patient's grandmother Loy Garcai who was in the room with the patient. She shared that she does not look forward to our Palliative Care visits, as we "always seems so negative, and bring negative energy into the room every time." She says this has been true of all Palliative Care visitors. I shared with her that I'm sorry it feels that way but that we feel it is important to continue to look at the big picture and acknowledge the truth of the serious brain injury and poor prognosis. She said she understands that, but still does not like it. I told her that we would stay in contact because, one day in the future, she and the patient's mother may want to again discuss the possibility of withdrawal of life support, and we will be there for them for that. ==DECISION-MAKING: The patient lacks capacity for decision-making and there is no reasonable medical probability of recovering capacity. There has been no contact with the patient's father since the patient was born, and the decision making proxy is the patient's mother "Reymundo." ==Pain: Showing no signs or symptoms of nonverbal pain. Patient is receiving scheduled morphine 10mg IV and lorazepam 4mg IV q4 hours [id number]. PRN medications are also available. ==Dyspnea: On room air via tracheostomy. Respirations unlabored without accessory muscle use. Treating signs of shortness of breath with Morphine and Ativan. PRN Levsin is available for excessive secretions but not utilized at this time ==Encephalopathy is likely secondary to the anoxic injury with neurology feeling there is poor prognosis for any type of meaningful recovery. Patient is unresponsive. PPS 10% I have no further medication recommendations at this time. ==Myoclonus: Patient is on Keppra 1000 mg SL only q12 hours. PRN lorazepam is also available. ==Patient seen and assessed in room 8404 s/p hospice admission on 10/13/2016. Patient's mother and grandmother are at bedside. Also present hospice nurse ( Xin) and Pavithra JOY.Hospice will continue to follow for symptom management and to provide the family with ongoing support and end-of-life education. Attestation To help prompt me to consider important information that might be impacting today's encounter and assessment, information from prior notes written by myself or my colleagues may have been "brought forward" into today's note. My signature on this note, however, is an attestation that I personally performed the exam, history, and/or decision-making noted today, and, unless otherwise indicated, the interactions with patient, family, and staff as well as the review of records all occurred today. I also attest that the listed assessment and stated plan reflect my best clinical judgment today based on the combination of historical information, prior notes, and today's exam/ interactions. When time spent is documented, it refers only to time spent today by the signer, or if indicated, combined time spent today by collaborating physician/nurse practitioner. . Mayela Rosa Oct 14, 2016 16:39
[2016-10-14 19:15] VITALS: BP 102/63; PULSE 116; RESP 22; TEMP 99.1; O2SAT 74
[2016-10-15] MEDS: LORazepam 2 MG/ML VIAL IV SCH ×6 (00:01→19:53)
[2016-10-15] MEDS: MORPHINE SULFATE 8 MG/ML INJ IV PUSH SCH ×6 (04:00→19:54)
--- NOTE | 2016-10-15 08:24 | PD.NP.DS ---
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 When found, she was asystole at the scene with a GCS of 3. Head CT showed raised intracranial pressure with mild loss of lemos matter definition. Since her admission, there has been no clinical improvement and she is diagnosed with anoxic encephalopathy. Medical professional consensus including this examiner opine that there is minimal to no chance for a meaningful recovery. She remains with no clinical improvement, and the family has decided to withdraw care. She was initially referred for baseline neurobehavioral status examination to assess cognitive, behavioral and emotional aspects of the injury and to provide treatment recommendations. Specifically, I was asked to provide the family with opinions concerning neurobehavioral and neurocognitive recovery, if any, as well as coma resources. I have followed the patient throughout her ICU stay and then to [place], where I provided grandmother support and empathy. The patient's mother was less open to such support, but I was available regardless. My last visit with the family was 10/14/2016, after the decision to withdraw care was made. Past Medical History: Please refer to the patient's history and physical for information concerning the patient's past medical, surgical, and psychiatric histories. Education/Learning Hx: The patient completed high school education. There is no report of learning difficulties, grade repetitions or behavioral difficulties. The patient had no significant work history given her age. The patient was single, never and had no children. The patient lived in [place], [place]. Premorbid Cognitive, Emotional and Behavioral Status: Tenuous. The patient graduated high school and was planning to attend college, no work history, and noted long psychiatric history. Substance abuse history is unknown. Behavioral Reactions of Patient and Family/Support System: Unstable. The patients family is experiencing ongoing issues of adjustment given the nature of the injury, and this aspect of recovery will require ongoing monitoring. Specifically, the family's realistic expectations concerning recovery was inconsistent with the realities of the medical situation. Emotional/Behavioral Status of Patient and Family/Support System: Tenuous. Pertinent issues, if appropriate to this patients clinical care, are described in detail above. Treatment Interventions: During the course of their acute care stay, this patient and their family/ support system were provided information concerning the neuropsychological aspects of the injury, education regarding course of recovery, and psychological support in the form of counseling with the person served and the family/support system as documented in the neuropsychology service progress notes, as deemed clinically appropriate. Throughout the entire time of the patient's stay, I provided the family support and empathy, and made myself available to assist with their decision-making. Current, Cognitive, Emotional and Behavioral Status: Not Applicable. The family decided to withdraw care. Impression at Discharge: NA. NA Status of Family/Support System Adjustment: Unstable. The patients family/ support system will experience ongoing issues of adjustment given the nature of the injury, and this aspect of the patients recovery will require ongoing monitoring. I asked that the patient's grandmother call me to assist her with grief support at her leisure. Post Acute Recommendations: NA. Thank you for the opportunity to assist in this patients care. Jose Rafael Manuel, Ph.D., ABPP Board Certified in Clinical Neuropsychology [place] [employer] [place] Licensed Psychologist #[id number] Jose Rafael Manuel PhD Oct 15, 2016 08:24
[2016-10-15] MEDS: levETIRAcetam 500 MG/5 ML UDC SCH ×2 (08:51→19:53)
[2016-10-15] MEDS: ACETAMINOPHEN 650 MG SUPP RECTAL PRN (16:50)
--- NOTE | 2016-10-15 17:26 | HHI.HCPN ---
Reason for visit a. To assist with evaluation and management of symptoms including: Dyspnea , possible pain; encephalopathy; myoclonus. b. To assist medical decision maker(s) with: better understanding of current medical conditions; weighing benefits/burdens of medical treatment options; making medical treatment decisions. . Subjective/Interval History Hospice GIP visit: Patient seen and assessed in room 8404. Also present hospice nurse (Xin) and bedside nurse (Joseph). She remains unresponsive, and continues to have myoclonus. Low grade fever. Color pale with dusky nailbeds. BLE warm to touch, no mottling noted. Pulse: 140, respirations 39, oxygen saturation 59% on room air. Patient is receiving scheduled morphine 10mg IV and lorazepam 4mg IV q4 hours [id number]. PRN medications are also available. Patient is tachypneic, using accessory muscles. Coarse air exchange. Requested nurse to administer PRN Morphine and Lorazepam to manage patient's increasing respiratory distress. Hospice will continue to follow for symptom management and to provide the family with ongoing support and end-of-life education. . Family/friend interactions Patient's mother and grandmother were leaving the unit upon my arrival stating they need a break. Patient's mother states, "It's inhumane what she is going through. We treat our dogs and cats better." She then states she is receiving good care from the nursing staff.. She shakes her head "No" when asked if she has any questions or needs. She then proceeds to get on the elevator not wanting to speak further. . Advance Directives Living Will: Never completed Health Care Surrogate: Never completed Durable Power of Insurance Rater: Never completed Objective Vital Signs Date Time Temp Pulse Resp B/P (MAP) Pulse Ox O2 Delivery O2 Flow Rate FiO2 10/14/16 19:15 99.1 116 22 102/63 (76) 74 10/14/16 19:00 Room Air Intake & Output 10/15/16 10/15/16 07:00 19:00 Output Total 0 ml Balance 0 ml Output Urine Total 0 ml . Physical Exam CONSTITUTIONAL/GENERAL: This is a frail, young woman who is in moderate respiratory distress. TUBES/LINES/DRAINS: Oral bite block in place, Tracheostomy; PEG clamped; PIV x 1 SKIN: No jaundice, rashes, or lesions. No wounds seen anteriorly. Generalized pallor. Skin is warm to touch EYES: Eyes closed, did not attempt open ENT: Nose without bleeding or purulent drainage, oral bite block in place NECK: Tracheostomy CARDIOVASCULAR: Tachycardic ; Regular rhythm without murmurs, gallops, or rubs. No JVD. Peripheral pulses symmetric. RESPIRATORY/CHEST: Tachypneic with accessory muscle use. Coarse air exchange GASTROINTESTINAL: Abdomen soft, nondistended. PEG clamped, not being used. MUSCULOSKELETAL: Extremities without clubbing. Nail beds are dusky. BLE warm to touch, no mottling. Trace edema. Left arm/hand swollen NEUROLOGICAL: Unresponsive to voice, touch, or painful stimuli. Myoclonus present. PPS 10% PSYCHIATRIC: Unable to evaluate due to her clinical condition . Diagnostic Tests Laboratory Laboratory Tests Test 10/13/16 05:45 Prothrombin Time 20.4 SEC (9.8-11.6) Prothromb Time International Ratio 1.8 RATIO . Procedures [place] bolt 09/12/16 (and subsequent removal) Tracheostomy PEG tube placement . 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 . (2) pain 0-10 Scale: Unable to quantify Comment: Possible sources of pain include trauma from hanging; tracheostomy wound; prolonged bedbound status; venous access catheters; anton; etc. (3) Encephalopathy (4) Myoclonus Pertinent Non-Medical Issues Psychosocial: Unmarried, no children. Spiritual: Not spiritual or methodist, but family reports that they are Mormon and quite spiritual. Their rabbi has participated in care during this hospitalization. [facility] has told mother "she should give it a month," but family is not wanting to put a specific timeframe on this. Legal: The patient lacks capacity for decision-making and will not regain that capacity. The patient's father has not been a part of her life since , and his whereabouts are unknown. The patient is unmarried, and her mother is thus the decision making proxy. Ethical issues impacting care: None . Important Contacts Mother: Agnieszka "Reymundo" [facility] [phone] Grandmother: Helenecarlos Garcia (Nina) [phone] Boyfriend: Seth Thibodeaux (Alex) [phone] . Prognosis The patient's prognosis is poor, and clearly she will not recover significant brain function. If the goals become comfort oriented, she is appropriate for withdrawal of life support, and hospice care. . Code Status: Full Code Plan == NO CODE-DNR/DNI ==GOALS: Family transitioned to inpatient hospice. Family stating they just want [place] to be comfortable and they do not want her pain to be prolonged any longer. 10/11/16: Dr. Bragg had a lengthy conversation with the patient's grandmother Loy Garcia who was in the room with the patient. She shared that she does not look forward to our Palliative Care visits, as we "always seems so negative, and bring negative energy into the room every time." She says this has been true of all Palliative Care visitors. I shared with her that I'm sorry it feels that way but that we feel it is important to continue to look at the big picture and acknowledge the truth of the serious brain injury and poor prognosis. She said she understands that, but still does not like it. I told her that we would stay in contact because, one day in the future, she and the patient's mother may want to again discuss the possibility of withdrawal of life support, and we will be there for them for that. 10/13/16: Patient admitted to hospice services. 10/15/16: Patient's mother and grandmother were leaving the unit upon my arrival stating they need a break. Patient's mother states, "It's inhumane what she is going through. We treat our dogs and cats better." She then states she is receiving good care from the nursing staff.. She shakes her head "No" when asked if she has any questions or needs. She then proceeds to get on the elevator not wanting to speak further. ==DECISION-MAKING: The patient lacks capacity for decision-making and there is no reasonable medical probability of recovering capacity. There has been no contact with the patient's father since the patient was born, and the decision making proxy is the patient's mother "Reymundo." ==Pain: Showing no signs or symptoms of nonverbal pain. Patient is receiving scheduled morphine 10mg IV and lorazepam 4mg IV q4 hours [id number]. PRN medications are also available. ==Dyspnea: On room air via tracheostomy. Oxygen saturation 59%. Patient is tachypneic, using accessory muscles. Coarse air exchange. Requested nurse to administer PRN Morphine and Lorazepam to manage patient's increasing respiratory distress. PRN Levsin is available for excessive secretions. ==Encephalopathy is likely secondary to the anoxic injury with neurology feeling there is poor prognosis for any type of meaningful recovery. Patient is unresponsive. PPS 10% I have no further medication recommendations at this time. ==Myoclonus: Patient is on Keppra 1000 mg SL only q12 hours. PRN lorazepam is also available. Attestation To help prompt me to consider important information that might be impacting today's encounter and assessment, information from prior notes written by myself or my colleagues may have been "brought forward" into today's note. My signature on this note, however, is an attestation that I personally performed the exam, history, and/or decision-making noted today, and, unless otherwise indicated, the interactions with patient, family, and staff as well as the review of records all occurred today. I also attest that the listed assessment and stated plan reflect my best clinical judgment today based on the combination of historical information, prior notes, and today's exam/ interactions. When time spent is documented, it refers only to time spent today by the signer, or if indicated, combined time spent today by collaborating physician/nurse practitioner. Mayela Rosa Oct 15, 2016 17:25
[2016-10-15] MEDS: MORPHINE SULFATE 4 MG/ML INJ IV PRN (17:40)
[2016-10-16] VITALS (7 sets, daily range): BP systolic 98–104; BP diastolic 60–62; PULSE 126–135; RESP 19–32; TEMP 98.6–99.5; O2SAT 74–79
[2016-10-16] MEDS: LORazepam 2 MG/ML VIAL IV SCH ×7 (00:17→23:56)
[2016-10-16] MEDS: MORPHINE SULFATE 8 MG/ML INJ IV PUSH SCH ×7 (00:18→23:56)
[2016-10-16] MEDS: levETIRAcetam 500 MG/5 ML UDC SCH ×2 (07:42→20:39)
[2016-10-16] MEDS: LORazepam 2 MG/ML VIAL IV PRN (14:48)
[2016-10-16] MEDS: MORPHINE SULFATE 4 MG/ML INJ IV PRN (14:49)
[2016-10-17] VITALS (13 sets, daily range): BP systolic 83–102; BP diastolic 59–61; PULSE 50–136; RESP 11–34; TEMP 99.6–100.4; O2SAT 50–79
[2016-10-17] MEDS: LORazepam 2 MG/ML VIAL IV SCH ×6 (04:03→23:40)
[2016-10-17] MEDS: MORPHINE SULFATE 8 MG/ML INJ IV PUSH SCH ×6 (04:04→23:40)
[2016-10-17] MEDS: levETIRAcetam 500 MG/5 ML UDC SCH ×2 (07:41→20:18)
[2016-10-17] MEDS: LORazepam 2 MG/ML VIAL IV PRN (14:27)
[2016-10-17] MEDS: ACETAMINOPHEN 650 MG SUPP RECTAL PRN (14:28)
[2016-10-17] MEDS: MORPHINE SULFATE 4 MG/ML INJ IV PRN (14:28)
[2016-10-18 04:00] VITALS: PULSE 83; RESP 22; O2SAT 70
[2016-10-18] MEDS: MORPHINE SULFATE 8 MG/ML INJ IV PUSH SCH ×7 (04:25→23:38)
[2016-10-18] MEDS: LORazepam 2 MG/ML VIAL IV SCH ×6 (04:26→23:38)
[2016-10-18] MEDS: levETIRAcetam 500 MG/5 ML UDC SCH ×2 (09:31→20:10)
--- NOTE | 2016-10-18 15:49 | HHI.HCPN ---
Reason for visit a. To assist with evaluation and management of symptoms including: Dyspnea , possible pain; encephalopathy; myoclonus. b. To assist medical decision maker(s) with: better understanding of current medical conditions; weighing benefits/burdens of medical treatment options; making medical treatment decisions. . Subjective/Interval History Hospice GIP visit: Patient seen and assessed in room 8404, multiple family members at bedside. She remains unresponsive, and continues to have myoclonus. Low grade fever. Color pale, lips and nailbeds dusky. Having intermittently labored respirations and excessive secretions. Patient is receiving scheduled morphine 10mg IV and lorazepam 4mg IV q4 hours [id number]. PRN medications are also available but have not been utilized. Family states patient appears to be uncomfortable before scheduled medications are available. Discussed with bedside nurse and hospice nurseXin. Encouraged use of PRN medications for better symptom management of respiratory distress and excessive secretions. Increasing frequency of scheduled morphine and lorazepam to q3 hours ATC. Hospice will continue to follow for symptom management and to provide the family with ongoing support and end-of-life education. . Advance Directives Living Will: Never completed Health Care Surrogate: Never completed Durable Power of Night Clerk Auditor: Never completed Objective Vital Signs Date Time Temp Pulse Resp B/P (MAP) Pulse Ox O2 Delivery O2 Flow Rate FiO2 10/18/16 12:40 18 10/18/16 04:00 83 22 70 10/17/16 23:00 97 22 70 10/17/16 23:00 97 10/17/16 19:00 100.0 94 24 79 10/17/16 17:53 52 11 50 10/17/16 17:21 50 Intake & Output 10/18/16 10/18/16 06:59 18:59 # Voids 1 # Bowel Movements 0 Physical Exam CONSTITUTIONAL/GENERAL: This is a frail, young woman who is in no apparent distress. TUBES/LINES/DRAINS: Oral bite block in place, Tracheostomy; PEG clamped; PIV x 1 SKIN: Skin breakdown noted on left ear. No wounds seen anteriorly. Generalized pallor. Skin is warm to touch EYES: Eyes closed, did not attempt open ENT: Nose without bleeding or purulent drainage, oral bite block in place. Mucus membranes dry NECK: Tracheostomy CARDIOVASCULAR: Regular rhythm without murmurs, gallops, or rubs. No JVD. Peripheral pulses symmetric. RESPIRATORY/CHEST: Respirations shallow, diminished air exchange. GASTROINTESTINAL: Abdomen soft, nondistended. PEG clamped, not being used. MUSCULOSKELETAL: Extremities without clubbing. Nail beds and lips are dusky. BLE warm to touch, no mottling. Trace edema. NEUROLOGICAL: Unresponsive to voice, touch, or painful stimuli. Myoclonus present. PPS 10% PSYCHIATRIC: Unable to evaluate due to her clinical condition . Diagnostic Tests Procedures [place] bolt 09/12/16 (and subsequent removal) Tracheostomy PEG tube placement . 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 . (2) pain 0-10 Scale: Unable to quantify Comment: Possible sources of pain include trauma from hanging; tracheostomy wound; prolonged bedbound status; venous access catheters; anton; etc. (3) Encephalopathy (4) Myoclonus Pertinent Non-Medical Issues Psychosocial: Unmarried, no children. Spiritual: Not spiritual or quaker, but family reports that they are [employer] and quite spiritual. Their rabbi has participated in care during this hospitalization[facility]," but family is not wanting to put a specific timeframe on this. Legal: The patient lacks capacity for decision-making and will not regain that capacity. The patient's father has not been a part of her life since , and his whereabouts are unknown. The patient is unmarried, and her mother is thus the decision making proxy. Ethical issues impacting care: None . Important Contacts Mother: Agnieszka Tyson" [facility] [phone] Grandmother: Loy "Edie" [employer] [phone] Boyfriend: Seth "Jake" Carlos Eduardo [phone] . Prognosis The patient's prognosis is poor, and clearly she will not recover significant brain function. If the goals become comfort oriented, she is appropriate for withdrawal of life support, and hospice care. . Code Status: Full Code Plan == NO CODE-DNR/DNI ==GOALS: Family transitioned to inpatient hospice. Family stating they just want Aziza to be comfortable and they do not want her pain to be prolonged any longer. Admitted to hospice 10/13/16 == Patient is receiving scheduled morphine 10mg IV and lorazepam 4mg IV q4 hours [id number]. PRN medications are also available but have not been utilized. Family states patient appears to be uncomfortable before scheduled medications are available, and they do not feel PRN medications are being used when necessary. Discussed with bedside nurse and hospice nurse, Xin. Patient is having increasing respiratory distress. Encouraged use of PRN medications for better symptom management of respiratory distress and excessive secretions. Will increase frequency of scheduled morphine and lorazepam to q3 hours ATC. == Discussed with Dr. Bragg ==DECISION-MAKING: The patient lacks capacity for decision-making and there is no reasonable medical probability of recovering capacity. There has been no contact with the patient's father since the patient was born, and the decision making proxy is the patient's mother "Reymundo." ==Pain: Showing no signs or symptoms of nonverbal pain. Patient is receiving scheduled morphine 10mg IV and lorazepam 3mg IV q4 hours [id number]. PRN medications are also available. ==Dyspnea: On room air via tracheostomy. Oxygen saturation 70%. Respirations are shallow with diminished air exchange. ==Encephalopathy is likely secondary to the anoxic injury with neurology feeling there is poor prognosis for any type of meaningful recovery. Patient is unresponsive. PPS 10% I have no further medication recommendations at this time. ==Myoclonus: Patient is on Keppra 1000 mg SL only q12 hours. PRN lorazepam is also available. Attestation To help prompt me to consider important information that might be impacting today's encounter and assessment, information from prior notes written by myself or my colleagues may have been "brought forward" into today's note. My signature on this note, however, is an attestation that I personally performed the exam, history, and/or decision-making noted today, and, unless otherwise indicated, the interactions with patient, family, and staff as well as the review of records all occurred today. I also attest that the listed assessment and stated plan reflect my best clinical judgment today based on the combination of historical information, prior notes, and today's exam/ interactions. When time spent is documented, it refers only to time spent today by the signer, or if indicated, combined time spent today by collaborating physician/nurse practitioner. . Mayela Rosa Oct 18, 2016 15:48
[2016-10-18 16:17] VITALS: PULSE 95; RESP 16; TEMP 98
[2016-10-18 19:00] VITALS: PULSE 102; RESP 28; TEMP 100.9; O2SAT 79
[2016-10-18 23:00] VITALS: PULSE 110; RESP 25; TEMP 101.9; O2SAT 70
[2016-10-19] VITALS (21 sets, daily range): BP systolic 46–59; BP diastolic 20–30; PULSE 102–122; RESP 14–38; TEMP 96.6–99.2; O2SAT 54–73
[2016-10-19] MEDS: MORPHINE SULFATE 8 MG/ML INJ IV PUSH SCH ×10 (02:28→23:27)
[2016-10-19] MEDS: LORazepam 2 MG/ML VIAL IV SCH ×10 (02:29→23:27)
[2016-10-19] MEDS: levETIRAcetam 500 MG/5 ML UDC SCH ×3 (08:49→22:18)
[2016-10-19] MEDS: ACETAMINOPHEN 650 MG SUPP RECTAL PRN (14:00)
[2016-10-20] VITALS: BP 45/22; PULSE 112; PULSE 114; RESP 24; TEMP 97.2; O2SAT 59
[2016-10-20] MEDS: LORazepam 2 MG/ML VIAL IV SCH ×5 (02:26→10:05)
[2016-10-20] MEDS: MORPHINE SULFATE 10 MG/ML INJ IV PUSH SCH ×3 (02:33→06:01)
[2016-10-20 04:00] VITALS: BP 55/29; PULSE 108; RESP 29; TEMP 97.9; O2SAT 75
[2016-10-20 07:00] VITALS: BP 45/25; PULSE 111; RESP 24; TEMP 97.8; O2SAT 45
[2016-10-20] MEDS: MORPHINE SULFATE 8 MG/ML INJ IV PUSH SCH ×2 (07:56→10:04)
[2016-10-20] MEDS: levETIRAcetam 500 MG/5 ML UDC SCH (07:57)
--- NOTE | 2016-11-15 14:03 | HHI.DS ---
Summary Note Date of : Oct 20, 2016 Admission Date Sep 07, 2016 at 18:19 Admitting Diagnosis hanging, respiratory arrest, hypoxic encephalopathy, cardiac arrest Diagnosis at Time of : (1) Hanging ICD Code: T71.164A - Asphyxiation due to hanging, undetermined, initial encounter Diagnosis: Principal (2) Hypoxic ischemic encephalopathy ICD Code: P91.60 - Hypoxic ischemic encephalopathy [HIE], unspecified Diagnosis: Principal (3) Respiratory failure ICD Code: J96.90 - Respiratory failure, unspecified, unspecified whether with hypoxia or hypercapnia Diagnosis: Principal Procedures EEG 10/12/2016 This EEG recording revealed low voltage and slow delta activity throughout that is consistent with severe encephalopathy. Clinical correlation is recommended. Brief History Suicide attempt by hanging, initially was cardiac arrest but heart was resuscitated. Significant neurologic insult . Significant Findings Unresponsive Imaging Last Impressions Chest X-Ray 10/07/16 0600 Signed Impressions: Service Date/Time: September 06:20 - CONCLUSION: 1. No new findings compared with October 02. Tracheostomy unchanged. No pneumothorax. Gideon Brown MD Liver Ultrasound 09/18/16 0000 Signed Impressions: Service Date/Time: Sunday, September 18, 2016 09:27 - CONCLUSION: 1. There is sludge within the gallbladder. No other findings are present to indicate acute cholecystitis. 2. Mild splenomegaly. 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 This is nonocclusive. A retrievable IVC filter was deployed below the main hepatic veins but it was necessary to cross an accessory right hepatic vein. Jose Armando Jackson Jr., MD Head CT 09/12/16 0000 Signed Impressions: Service Date/Time: Monday, September 12, 2016 09:29 - CONCLUSION: Mild loss of lemos matter definition that can be seen with increasing intracranial pressure. Ricki Cavazos MD FACR Neck Magnetic Resonance Angiography 09/09/16 0000 Signed Impressions: Service Date/Time: August 16:02 - CONCLUSION: 1. Moderate to severe smooth narrowing of the left common carotid artery and also moderate narrowing of the proximal right common carotid artery as well as narrowing of both proximal vertebral arteries likely related to recent hanging. Etiology could be related to vasospasm or recent extrinsic prolonged compression. The distal internal carotid arteries and vertebral artery have more normal calibers. Findings called to Dr. Bhatt at the time of dictation. Gideon Brown MD Cervical Spine MRI 09/09/16 0000 Signed Impressions: Service Date/Time: August 16:02 - CONCLUSION: 1. Very minimal degenerative disc disease at C5-6. 2. No acute fracture or prevertebral soft tissue swelling. 3. No focal cervical cord abnormality. Tray Santiago MD Brain MRI 09/09/16 0000 Signed Impressions: Service Date/Time: August 16:02 - CONCLUSION: 1. Diffuse FLAIR-weighted hyperintensities involving the caudate nuclei bilaterally, bilateral hummel radiata, as well as the bilateral parietal and occipital cortex consistent with the patient's clinical diagnosis of anoxic encephalopathy. 2. No acute hemorrhage, midline shift, extra-axial fluid collection or abnormal enhancement. 3. Small fluid level within the right sphenoid sinus. Tray Santiago MD Cervical Spine CT 09/07/16 1800 Signed Impressions: Service Date/Time: Wednesday, September 07, 2016 18:06 - CONCLUSION: 1. No fracture or subluxation. 2. Scattered groundglass nodules throughout the upper lobes, nonspecific but can be seen with hypersensitivity pneumonitis. Artem Madera MD Hospital Course Aggressive care was continued at the request of the family for more than a month , but the patient did not make any improvement in neurologic status. The patient's family then elected to stop aggressive care and requested a transition to comfort care for end-of-life. Darlene Bragg MD Nov 15, 2016 14:03
== END 2016-10-20 10:45 | disposition expired | DRG 3 ==
LOC: NEPI 17:49 → NEDA 18:19 → EDBD 18:19 → N03A 18:37 → N05A 09-24 18:23 → N03A 09-26 10:07 → PHICU 09-29 02:10
PROVIDERS: ADMIT Family Medicine Hospice and Palliative Medicine; ATTEND Family Medicine Hospice and Palliative Medicine
PROC: 5A1955Z Respiratory Ventilation, Greater than 96 Consecutive Hours (ICD-10-PCS; principal; 2016-09-07)
PROC: 06HM33Z Insertion of Infusion Device into Right Femoral Vein, Percutaneous Approach (ICD-10-PCS; 2016-09-07)
PROC: 6A4Z1ZZ Hypothermia, Multiple (ICD-10-PCS; 2016-09-07)
PROC: 0BH17EZ Insertion of Endotracheal Airway into Trachea, Via Natural or Artificial Opening (ICD-10-PCS; 2016-09-07)
PROC: 02HV33Z Insertion of Infusion Device into Superior Vena Cava, Percutaneous Approach (ICD-10-PCS; 2016-09-10)
PROC: 06H03DZ Insertion of Intraluminal Device into Inferior Vena Cava, Percutaneous Approach (ICD-10-PCS; 2016-09-12)
PROC: 00H032Z Insertion of Monitoring Device into Brain, Percutaneous Approach (ICD-10-PCS; 2016-09-12)
PROC: 4A103BD Monitoring of Intracranial Pressure, Percutaneous Approach (ICD-10-PCS; 2016-09-12)
PROC: 0B113F4 Bypass Trachea to Cutaneous with Tracheostomy Device, Percutaneous Approach (ICD-10-PCS; 2016-09-17)
PROC: 0BJ08ZZ Inspection of Tracheobronchial Tree, Via Natural or Artificial Opening Endoscopic (ICD-10-PCS; 2016-09-17)
PROC: 0DH63UZ Insertion of Feeding Device into Stomach, Percutaneous Approach (ICD-10-PCS; 2016-09-20)
PROC: 0DJ08ZZ Inspection of Upper Intestinal Tract, Via Natural or Artificial Opening Endoscopic (ICD-10-PCS; 2016-09-20)
DX: T71.162A Asphyxiation due to hanging, intentional self-harm, initial encounter (principal); G93.6 Cerebral edema; R65.21 Severe sepsis with septic shock; I82.220 Acute embolism and thrombosis of inferior vena cava; J69.0 Pneumonitis due to inhalation of food and vomit; A41.9 Sepsis, unspecified organism; G93.1 Anoxic brain damage, not elsewhere classified; J96.02 Acute respiratory failure with hypercapnia; J96.01 Acute respiratory failure with hypoxia; J15.211 Pneumonia due to Methicillin susceptible Staphylococcus aureus; Z99.11 Dependence on respirator [ventilator] status; N17.9 Acute kidney failure, unspecified; E87.1 Hypo-osmolality and hyponatremia; E87.4 Mixed disorder of acid-base balance; F32.9 Major depressive disorder, single episode, unspecified; R13.10 Dysphagia, unspecified; R00.0 Tachycardia, unspecified; R40.2432 Glasgow coma scale score 3-8, at arrival to emergency department; I65.23 Occlusion and stenosis of bilateral carotid arteries; D69.6 Thrombocytopenia, unspecified; D50.9 Iron deficiency anemia, unspecified; E87.70 Fluid overload, unspecified; N30.90 Cystitis, unspecified without hematuria; R56.9 Unspecified convulsions; G25.3 Myoclonus; Z51.5 Encounter for palliative care; Z87.440 Personal history of urinary (tract) infections; Y92.009 Unspecified place in unspecified non-institutional (private) residence as the place of occurrence of the external cause
CPT/HCPCS: 31500; 31624; 36556; 36600; 36620; 37193; 61210; 70450; 70548; 70553; 71010; 72125; 72141; 76705; 76937; 80048; 80053; 80074; 80076; 80185; 80202; 80307; 81001; 82272; 82435; 82533; 82565; 82607; 82728; 82746; 82805; 82947; 82948; 83540; 83550; 83605; 83690; 83735; 83930; 84100; 84132; 84155; 84295; 84520; 84702; 85007; 85018; 85025; 85027; 85610; 85730; 86022; 86403; 86850; 86900; 86901; 87040; 87070; 87086; 87147; 87186; 87205; 87641; 93005; 94002; 94003; 94640; 94664; 94770; 95819; 99291; A9579; C1880; C1887; C9113; G0390; J0131; J0330; J0690; J0692; J1450; J1652; J1940; J1953; J2060; J2150; J2250; J2270; J2370; J2543; J2765; J3010; J3370; J3475; J3480; J7030; J7040; J7050; J7070; J7608; J7613; L0150; L0172; P9047; Q2009; Q9967